=== PATIENT | female | born 1945 | race Caucasian/White ===

== ENCOUNTER → 2020-08-05 | Outpatient (REF) | payer MEDICARE, MEDICAID ==
[~2020-08-05] MED LIST: *CXR; *MAMMOGRAM; AMITRIP25 PO; AMOXIL500 PO; ASP325 PO; ASPI325T; ATARAX25 PO; AUG500 PO; BUSPAR10 PO; BUSPIRONE; CELEXA PO; CELEXA20 PO; CIPRO250 PO; CIPRO500 PO; CORE80CA; CRESTOR PO; CYMBALTA; CYMBALTA60 PO; DIABETA PO; DIFLUC150 PO; EPIPENAD INJECTION; FERROUS325 PO; FOLIC1 PO; FOLITAB11; FURO80TA2; FUROSEM PO; GLUCOSE TEST; HYDROCODONE/APAP; IMDUR30 PO; ISOS30BRAN; K-TA10TA; LAMISILCR TOPICAL; LANCMIS; LASIX20 PO; LASIX40 PO; LIDODERM TOPICAL; LIPI80TA; LIPITOR80 PO; LISINOPR10 PO; LOPRESSO25 PO; LYRI150C; LYRICA PO; LYRICA75 PO; MOBIC15 PO; MOBIC7.5 PO; NEURONTIN1 PO; NEURONTIN3 PO; NYSTATINP TOP; OMACOR PO; OMEPRAZ20 PO; PLAV75TA2; PLAVIX75 PO; PROT1TAB2; PROVENTIL INHALATION; SPIR1CAP; SPIRIVA INHALER; SUCR1TAB56; TESSALO100 PO; TRICOR145 PO; TRICOR160 PO; VALTREX100 PO; VENTOLININ INHALATION; VICODIN PO; VIST50CA; VITAMIN B 12; Z-PAK PO; ZITHROM500 PO; ZITHROZPAK PO; ZOCOR20 PO; [UNRECOGNIZED DRUG - CODE] INHALATION; [UNRECOGNIZED DRUG - CODE] PO; [UNRECOGNIZED DRUG - CODE] PO; [UNRECOGNIZED DRUG - CODE] PO; [UNRECOGNIZED DRUG - CODE] PO; [UNRECOGNIZED DRUG - CODE] PO; [UNRECOGNIZED DRUG - MIXTURE] PO; [UNRECOGNIZED DRUG - OTHER]
[2020-08-05 16:04] LABS: BASO % 0.4 % (0.0-1.0); EOS # 0.2 10^3/uL (0.0-0.5); EOS % 3.2 % (0.0-3.0); HEMATOCRIT 34.2 % (36.0-47.0); HEMOGLOBIN 10.4 g/dl (12.0-15.5); LYMPH # 2.5 10^3/uL (1.5-5.0); LYMPH % 35.3 % (24.0-44.0); MEAN CORPUSCULAR HEMOGLOBIN 29.5 pg (27.0-33.0); MEAN CORPUSCULAR HGB CONC 30.4 g/dl (32.0-36.5); MEAN CORPUSCULAR VOLUME 97.2 fl (80.0-96.0); MONO # 0.5 10^3/uL (0.0-0.8); MONO % 7.1 % (0.0-5.0); NEUTROPHILS # 3.8 10^3/uL (1.5-8.5); NEUTROPHILS % 53.7 % (36.0-66.0); PLATELET COUNT, AUTOMATED 246 10^3/uL (150-450); RED BLOOD COUNT 3.52 10^6/uL (4.00-5.40); WHITE BLOOD COUNT 7.1 10^3/uL (4.0-10.0)
[2020-08-05 16:24] LABS: HEMOGLOBIN A1c 5.7 %
[2020-08-05 16:41] LABS: ALBUMIN 3.6 GM/DL (3.2-5.2); BILIRUBIN,TOTAL 0.2 MG/DL (0.2-1.0); CALCIUM LEVEL 8.8 MG/DL (8.8-10.2); CHOLESTEROL RISK RATIO 6.166 (<5); CREATININE FOR GFR 1.67 MG/DL (0.55-1.30); FREE T4 0.84 NG/DL (0.76-1.46); GLOMERULAR FILTRATION RATE 31.9 (>39); POTASSIUM SERUM 4.1 MEQ/L (3.5-5.1); THYROID STIMULATING HORMONE 0.777 uIU/ML (0.358-3.740)
== END ==
LOC: M SFHCCLAY 13:13
PROVIDERS: ATTEND Nurse Practitioner Family
DX: M25.561 Pain in right knee (principal); W19.XXXA Unspecified fall, initial encounter; J44.9 Chronic obstructive pulmonary disease, unspecified; R09.02 Hypoxemia; F41.8 Other specified anxiety disorders; I48.91 Unspecified atrial fibrillation; G70.00 Myasthenia gravis without (acute) exacerbation; K21.9 Gastro-esophageal reflux disease without esophagitis; I25.118 Atherosclerotic heart disease of native coronary artery with other forms of angina pectoris; Z86.73 Personal history of transient ischemic attack (TIA), and cerebral infarction without residual deficits

== ENCOUNTER → 2020-08-05 | Outpatient (CLI) | payer MEDICARE, MEDICAID ==
--- NOTE | 2020-08-11 07:23 | REP ---
RIGHT KNEE SERIES: 5-VIEWS HISTORY: Acute pain. FINDINGS: Five views of the right knee demonstrate diffuse osteopenia. Vascular calcification is noted. There is no evidence of joint effusion. No fracture or subluxation is seen. IMPRESSION: Diffuse osteopenia. No acute bony abnormality. MTDD
== END ==
LOC: M CLY 13:24
PROVIDERS: ATTEND Nurse Practitioner Family
DX: M85.861 Other specified disorders of bone density and structure, right lower leg (principal); M25.561 Pain in right knee; J44.9 Chronic obstructive pulmonary disease, unspecified; R09.02 Hypoxemia; F41.8 Other specified anxiety disorders; I48.91 Unspecified atrial fibrillation; G70.00 Myasthenia gravis without (acute) exacerbation; K21.9 Gastro-esophageal reflux disease without esophagitis; I25.118 Atherosclerotic heart disease of native coronary artery with other forms of angina pectoris; W19.XXXA Unspecified fall, initial encounter; Z86.73 Personal history of transient ischemic attack (TIA), and cerebral infarction without residual deficits; Z79.899 Other long term (current) drug therapy

== ENCOUNTER → 2020-09-06 | Outpatient (REF) | payer MEDICARE, MEDICAID | LOC: M SFHCCLAY 15:30 | PROVIDERS: ATTEND Physician Assistant | DX: N39.0 Urinary tract infection, site not specified (principal) | CPT/HCPCS: 81002; 87088; 87186; G0463 ==

== ENCOUNTER → 2020-09-16 | Outpatient (CLI) | payer MEDICARE, MEDICAID ==
[~2020-09-16] MED LIST changes: +ACET650T61 PO; +ARTIDRO OU; +ASPI81TA27 PO; +CARB25TA9 PO; +CLON0.5T17 PO; +CLON0.5T2 PO; +D3-5CAP PO; +DIGO0.123 PO; +ENTR1TAB PO; +EPIN0.3I11 INJ; +GABA-843 PO; +ICY1PAD TOP; +IPRA0.00 INH; +L-ME15TA5 PO; +NITR4TASL SL; +OCUVTAB4 PO; +OMEP-221 PO; +POTA1TAB14 PO; +QUES4POW PO; +SERT-138 PO; +TORS20TA2 PO; +TUMS500C PO; +VENTAER INH; +VITA500T41 PO; +WELL100T2 PO; +[UNRECOGNIZED DRUG - CODE] TOP
--- NOTE | 2020-09-16 10:26 | REP ---
INDICATION: ACUTE KNEE PAIN RT KNEE. COMPARISON: Right knee 08/05/2020 TECHNIQUE: Four views. FINDINGS: Tibia and fibula show no fracture along their shafts. Proximal and distal tibial and fibular metaphyses were without fracture or focal lesion. There are vascular calcifications in the popliteal artery and branches from the knee to the lower calf. No pretibial soft tissue swelling. There is some mild swelling distally in the calf in about the ankle. Mortise joint symmetric and preserved. IMPRESSION: 1. No visible fracture, avulsion or destructive bone lesion. Some minor degenerative changes knee and ankle. 2. Vascular calcification the popliteal artery and branches in the calf. 3. Soft tissue swelling mid to distal calf with subcutaneous edema and soft tissue swelling all around the ankle. <Electronically signed by Hilario Jovel > 09/16/20 [id number]
== END ==
LOC: M CLY 09:09
PROVIDERS: ATTEND Nurse Practitioner Family
DX: M25.561 Pain in right knee (principal); W19.XXXD Unspecified fall, subsequent encounter
CPT/HCPCS: 73590; G0463

== ENCOUNTER 2020-09-27 10:56 | Inpatient (IN) | payer MEDICARE, MEDICAID ==
[~2020-09-27] VITALS: Ht 162.6 cm; Wt 66.5 kg
[~2020-09-27 10:56] MED LIST changes: -ACET650T61 PO; -ARTIDRO OU; -ASPI81TA27 PO; -CARB25TA9 PO; -CLON0.5T17 PO; -CLON0.5T2 PO; -D3-5CAP PO; -DIGO0.123 PO; -ENTR1TAB PO; -EPIN0.3I11 INJ; -GABA-843 PO; -ICY1PAD TOP; -IPRA0.00 INH; -L-ME15TA5 PO; -NITR4TASL SL; -OCUVTAB4 PO; -OMEP-221 PO; -POTA1TAB14 PO; -QUES4POW PO; -SERT-138 PO; -TORS20TA2 PO; -TUMS500C PO; -VENTAER INH; -VITA500T41 PO; -WELL100T2 PO; -[UNRECOGNIZED DRUG - CODE] TOP
[2020-09-27 11:40] LABS: BASO % 0.4 % (0.0-1.0); EOS # 0.2 10^3/uL (0.0-0.5); EOS % 2.5 % (0.0-3.0); HEMATOCRIT 33.9 % (36.0-47.0); HEMOGLOBIN 10.2 g/dl (12.0-15.5); LYMPH # 1.9 10^3/uL (1.5-5.0); LYMPH % 24.1 % (24.0-44.0); MEAN CORPUSCULAR HEMOGLOBIN 29.1 pg (27.0-33.0); MEAN CORPUSCULAR HGB CONC 30.1 g/dl (32.0-36.5); MEAN CORPUSCULAR VOLUME 96.9 fl (80.0-96.0); MONO # 0.7 10^3/uL (0.0-0.8); MONO % 8.2 % (0.0-5.0); NEUTROPHILS # 5.1 10^3/uL (1.5-8.5); NEUTROPHILS % 64.3 % (36.0-66.0); PLATELET COUNT, AUTOMATED 211 10^3/uL (150-450); WHITE BLOOD COUNT 7.9 10^3/uL (4.0-10.0)
--- NOTE | 2020-09-27 11:41 | REP ---
INDICATION: TRAUMA COMPARISON: 02/04/2007 TECHNIQUE: Portable AP view of the chest FINDINGS: The mediastinum and cardiac silhouette are stable including cardiomegaly and pacemaker. The lung ch demonstrate chronic appearing interstitial changes without acute consolidation, effusion, or pneumothorax. Skeletal structures are intact. IMPRESSION: No acute cardiopulmonary process appreciated. <Electronically signed by Carson Alvarez > 09/27/20 [id number]
[2020-09-27 12:09] LABS: ALBUMIN 3.3 GM/DL (3.2-5.2); ALT/SGPT 12 U/L (12-78); BILIRUBIN,DIRECT < 0.1 MG/DL (0.0-0.2); BILIRUBIN,TOTAL 0.2 MG/DL (0.2-1.0); BLOOD UREA NITROGEN 19 MG/DL (7-18); CALCIUM LEVEL 8.8 MG/DL (8.8-10.2); CARBON DIOXIDE LEVEL 30 MEQ/L (21-32); CHLORIDE LEVEL 107 MEQ/L (98-107); CK-MB VALUE MASS 1.5 NG/ML (<3.6); CPK CREATINE PHOSPHOKINASE 117 U/L (26-192); CREATININE FOR GFR 1.81 MG/DL (0.55-1.30); GLOMERULAR FILTRATION RATE 29.1 (>39); GLUCOSE, FASTING 116 MG/DL (70-100); MB/CK RELATIVE INDEX 1.28 (< OR =4); POTASSIUM SERUM 4.1 MEQ/L (3.5-5.1); SODIUM LEVEL 142 MEQ/L (136-145); TOTAL PROTEIN 6.8 GM/DL (6.4-8.2); TROPONIN I < 0.02 NG/ML (< 0.10)
[2020-09-27 12:41] LABS: FREE T4 0.64 NG/DL (0.76-1.46); THYROID STIMULATING HORMONE 0.626 uIU/ML (0.358-3.740)
--- NOTE | 2020-09-27 12:46 | REPVR ---
PROCEDURE INFORMATION: Exam: CT Head Without Contrast Exam date and time: 09/27/2020 12:36 PM Age: 75 years old Clinical indication: Walking, difficulty; Additional info: Weakness TECHNIQUE: Imaging protocol: Computed tomography of the head without contrast. Radiation optimization: All CT scans at this facility use at least one of these dose optimization techniques: automated exposure control; mA and/or kV adjustment per patient size (includes targeted exams where dose is matched to clinical indication); or iterative reconstruction. COMPARISON: No relevant prior studies available. FINDINGS: Brain: There is no acute intracranial hemorrhage or mass effect. Moderate diffuse volume loss is within the range of normal for patient age. There are small vessel ischemic changes within the periventricular and subcortical white matter, but the normal finney-white matter delineation is maintained. Chronic lacunar infarct involves the right caudate. Cerebral ventricles: Prominence of the ventricular system is commensurate with volume loss. Bones/joints: Unremarkable. No acute fracture. Paranasal sinuses: Visualized sinuses are unremarkable. No fluid levels. Mastoid air cells: Visualized mastoid air cells are well aerated. Soft tissues: Unremarkable. IMPRESSION: No acute intracranial hemorrhage or edema. Electronically signed by: Eri Baugh On 09/27/2020 12:45:50 PM
[2020-09-27] MEDS ORDERED: QUES4POW PO (13:52)
[2020-09-27] MEDS ORDERED: VITA500T41 PO (13:52)
[2020-09-27] MEDS ORDERED: ARTIDRO OU (13:52)
[2020-09-27] MEDS ORDERED: ENTR1TAB PO (13:52)
[2020-09-27] MEDS ORDERED: TORS20TA2 PO (13:52)
[2020-09-27] MEDS ORDERED: ACET650T61 PO (13:52)
[2020-09-27] MEDS ORDERED: ICY1PAD TOP (13:52)
[2020-09-27] MEDS ORDERED: OMEP-221 PO (13:52)
[2020-09-27] MEDS ORDERED: OCUVTAB4 PO (13:52)
[2020-09-27] MEDS ORDERED: IPRA0.00 INH (13:52)
[2020-09-27] MEDS ORDERED: D3-5CAP PO (13:52)
[2020-09-27] MEDS ORDERED: CLON0.5T17 PO (13:52)
[2020-09-27] MEDS ORDERED: L-ME15TA5 PO (13:52)
[2020-09-27] MEDS ORDERED: GABA-843 PO (13:52)
[2020-09-27] MEDS ORDERED: WELL100T2 PO (13:52)
[2020-09-27] MEDS ORDERED: EPIN0.3I11 INJ (13:52)
[2020-09-27] MEDS ORDERED: SERT-138 PO (13:52)
[2020-09-27] MEDS ORDERED: POTA1TAB14 PO (13:52)
[2020-09-27] MEDS ORDERED: DIGO0.123 PO (13:52)
[2020-09-27] MEDS ORDERED: CLON0.5T2 PO (13:52)
[2020-09-27] MEDS ORDERED: TUMS500C PO (13:52)
[2020-09-27] MEDS ORDERED: NITR4TASL SL (13:52)
[2020-09-27] MEDS ORDERED: ASPI81TA27 PO (13:52)
[2020-09-27] MEDS ORDERED: VENTAER INH (13:52)
[2020-09-27] MEDS ORDERED: [UNRECOGNIZED DRUG - CODE] TOP (13:52)
[2020-09-27] MEDS ORDERED: NITROGLYCERIN 0.4 MG SUBL TABLET SL PRN (15:15)
[2020-09-27 15:18] VITALS: BP 155/69
--- NOTE | 2020-09-27 15:21 | HPEPDOC ---
[facility] Medical History & Physical Date of Admission Sep 27, 2020 Date of Service: Sep 27, 2020 History and Physical Chief complaint: Who presented to the ER after experiencing multiple falls while at home History of present illness: Patient is a 75-year-old female with a PMHx of Chronic hypoxic respiratory failure (uses 2L at baseline), CAD s/p [place] (x3, x12 stents, most recent 2009), Paroxysmal A. fib (as per record, on ASA 81), Pacemaker / AICD (2012), Stroke (2014), Brain aneurysm (no intervention), Myasthenia Gravis (not on meds), Fibromyalgia / Depression / Anxiety, Spinal stenosis, Arthritis, Tremors and GERD who presented to the hospital after expressing multiple falls while at home. Patient reports over the course of 6 months. She has fallen greater than 10 times. Patient denies any head trauma. Reports that on 3 of lytic lesions. She may have lost consciousness, however, she cant remember. Patient reports that today she had fallen denied any loss of consciousness. Patient reports that she uses a walker at baseline and lives alone. She has 2 friends that help her while at home. She is in the process of establishing a home health aide. Patient reports that today she had fallen because her legs gave out. Denied any lightheadedness or dizziness, chest pain, shortness of breath, cough, nausea, vomiting, abdominal pain, constipation, diarrhea, or urinary discomfort. She denies any change in color of her urine or abnormal smell. Denies any recent fevers or chills. Patient reports that overall she feels very fatigued. Two years ago patient had reported a weight loss of about 100 pounds and reports that her appetite is fairly okay. Past Medical History: Chronic hypoxic respiratory failure (uses 2L at baseline), CAD s/p [place] (x3, x12 stents, most recent 2009), Paroxysmal A. 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 Cystocele/rectocele repair Total abdominal hysterectomy Tonsillectomy and adenoidectomy Colonoscopy Allergies: See below Medications: See below Family History: - Father with a history of bone cancer, at the age of 57 and mother with a history of cervical cancer, at the age of 41 Social History: - Denies the use of alcohol or illicit drugs; patient reports that she is an active smoker and has smoked for greater than 50 years - Denies recent travel or sick contacts - Lives alone - 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; 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 Review of Systems: 10 point review of systems complete, all negative otherwise stated in HPI Physical exam: - Vitals: BP [158/66], HR [71], RR [18], Sat [100%RA], Temp [97.1F] - General: Lying in bed, No acute distress, Speaking in full sentences, AAOx3 - HEENT: NC, AT, PERRLA - CVS: RRR, +S1S2 - Lungs: Fair air entry bilaterally, No appreciable wheezing / rales / rhonchi - Abdomen: Soft, Non-distended, Non-tender - Extremities: + PPx4, No lower extremity edema, No calf tenderness - Neuro: No focal motor or sensory deficit - Skin: No visible rashes Labs: See below Imaging: See below EKG: See below Assessment and Plan: Generalized weakness - History of Myasthenia Gravis (not on meds) - Patient reports generalized weakness of all her extremities and fatigue - Review of systems is negative for any source of infection; afebrile / hemodynamically stable - Not appear to have any focal neurologic deficits - UA without any convincing findings of infection - CT head 09/27: No acute intracranial hemorrhage or edema. - CXR 09/27: No acute cardiopulmonary process appreciated. - Will check acetycholine receptor antibodies, anti-MUSK antibodies, striational antibodies - Will start PT and OT - Discussed case with Neurology who will be on consultation; will evaluate today Elevated Cr on CKD3 - Cr baseline noted to be 1.6 a month ago - Will give gentle fluids for now - Avoid nephrotoxic medications - Hold diuresis at this time Chronic hypoxic respiratory failure - Patient reports that she is a smoker, actively for 50 years - Denies the diagnosis of COPD - Patient uses 2L at baseline - Continue with inhaled therapy as ordered CAD - History of [place] x3, x12 stents, most recent 2009 - c/w Nitroglycerin PRN - c/w ASA 81 Paroxysmal A. fib - As per record, however patient denies knowing this diagnosis - EKG currently is normal sinus rhythm - c/w Digoxin - c/w ASA 81 HTN - BP slightly elevated - Will hold Trosemide (re: elevated Cr) - c/w Entresto Pacemaker / AICD (2012) Stroke (2014) - c/w ASA Brain aneurysm - Patient reported that no intervention was required Myasthenia Gravis - See above Macrocytic anemia - c/w Vitamin B12 Fibromyalgia / Depression / Anxiety - c/w Gabapentin, Sertraline, Bupropion, Clonazepam, Spinal stenosis / Arthritis / Tremors - c/w Tylenol Calcium / Vitamin D deficiency - c/w Vitamin D and Calcium carbonate GERD - c/w Omeprazole DVT prophylaxis - Will start Heparin Vital Signs Vital Signs Date Time Temp Pulse Resp B/P (MAP) Pulse Ox O2 Delivery O2 Flow Rate FiO2 09/27/20 14:45 71 164/78 (106) 100 Room Air 09/27/20 13:41 18 09/27/20 11:08 97.1 Laboratory Data Labs 24H Laboratory Tests 2 09/27/20 11:29: Immature Granulocyte % (Auto) 0.5, Neutrophils (%) (Auto) 64.3, Lymphocytes (%) (Auto) 24.1, Monocytes (%) (Auto) 8.2H, Eosinophils (%) (Auto) 2.5, Basophils (%) (Auto) 0.4, Neutrophils # (Auto) 5.1, Lymphocytes # (Auto) 1.9, Monocytes # (Auto) 0.7, Eosinophils # (Auto) 0.2, Basophils # (Auto) 0.0, Nucleated Red Blood Cells % (auto) 0.0, Anion Gap 5L, Glomerular Filtration Rate 29.1L, Calcium Level 8.8, Total Bilirubin 0.2, Direct Bilirubin < 0.1, Aspartate Amino Transf (AST/SGOT) 16, Alanine Aminotransferase (ALT/SGPT) 12, Alkaline Phosphatase 82, Total Creatine Kinase 117, Creatine Kinase MB 1.5, Creatine Kinase MB Relative Index 1.28, Troponin I < 0.02, Total Protein 6.8, Albumin 3.3, Albumin/Globulin Ratio 0.9L, Thyroid Stimulating Hormone (TSH) 0.626, Free Thyroxine 0.64L 09/27/20 13:35: Urine Color YELLOW, Urine Appearance CLEAR, Urine pH 5.0, Urine Specific [place] 1.013, Urine Protein NEGATIVE, Urine Glucose (UA) NEGATIVE, Urine Ketones NEGATIVE, Urine Blood NEGATIVE, Urine Nitrite NEGATIVE, Urine Bilirubin NEGATIVE, Urine Urobilinogen 0.2, Urine Leukocyte Esterase TRACEH, Urine WBC (Auto) 7H, Urine RBC (Auto) 0, Urine Hyaline Casts (Auto) 3, Urine Bacteria (Auto) NEGATIVE, Urine Squamous Epithelial Cells 0, Urine Mucus (Auto) SMALL, Urine Sperm (Auto) , Coronavirus (COVID-19)(PCR) NEGATIVE 09/27/20 15:01: CBC/BMP Laboratory Tests 09/27/20 11:29 Microbiology Microbiology 09/27/20 Urine Culture, Received Pending Home Medications Scheduled Aspirin (Aspirin EC) 81 Mg Tablet.dr, 81 MG PO DAILY Bupropion HCl (Wellbutrin Sr) 100 Mg Tab.sr.12h, 100 MG PO DAILY Calcium Carbonate (Tums) 200 Mg Tab.chew, 500 MG PO DAILY Cholecalciferol (Vitamin D3) (D3-50) 1,250 Mcg Capsule, 1,250 MCG PO QMONTH Cholestyramine (with Sugar) (Questran Packet) 4 Gm Powd.pack, 4 GM PO BID Clonazepam (Clonazepam) 0.5 Mg Tablet, 0.5 MG PO QHS Cyanocobalamin (Vitamin B-12) (Vitamin B-12) 500 Mcg Tablet, 500 MCG PO DAILY Digoxin (Digoxin) 125 Mcg Tablet, 125 MCG PO 3XW MON, WED, FRI Gabapentin (Gabapentin) 300 Mg Capsule, 600 MG PO DAILY Levomefolate Calcium (l-Methylfolate) 15 Mg Tablet, 15 MG PO DAILY Omeprazole (Omeprazole) 40 Mg Capsule.dr, 40 MG PO DAILY Potassium Chloride (Potassium Chloride) 20 Meq Tablet.er, 20 MEQ PO 3XW MON, WED, FRI Sacubitril/Valsartan (Entresto 24 mg-26 mg Tablet) 1 Each Tablet, 0.5 TAB PO BID Sertraline HCl (Sertraline HCl) 100 Mg Tablet, 100 MG PO DAILY Torsemide (Torsemide) 20 Mg Tablet, 10 MG PO DAILY Vit A/Vit C/Vit E/Zinc/Copper (Preservision Areds Tablet) 1 Each Tablet, 1 TAB PO DAILY Scheduled PRN Acetaminophen (Tylenol Arthritis) 650 Mg Tablet.er, 1,300 MG PO Q8H PRN for PAIN Albuterol Sulfate (Ventolin Hfa) 18 Gm Hfa.aer.ad, 2 PUFFS INH Q4H PRN for SOB/WHEEZING Clonazepam (Clonazepam) 0.5 Mg Tab.rapdis, 0.5 MG PO DAILY PRN for ANXIETY Epinephrine (Epinephrine) 0.3 Mg/0.3 Ml Auto.injct, 0.3 MG INJ PRN PRN for ALLERGIC REACTION Glycerin/Propylene Glycol (Artificial Tears Drops) 15 Ml Drops, 1 DROP OU QID PRN for DRY EYES Ipratropium/Albuterol Sulfate (Iprat-Albut 0.5-3(2.5) mg/3 ml) 3 Ml Ampul.neb, 1 HANSA INH QID PRN for SHORTNESS OF BREATH Lidocaine/Menthol (Icy Hot 4%-1% Patch) 1 Each Adh..patch, 1 PATCH TOP TID PRN for BACK PAIN Menthol/Camphor (Freeze It Relief Gel) 113.4 Gm Gel..gram., 1 DOSE TOP BID PRN for SCIATIC PAIN APPLY TO RIGHT LEG AND BACK Nitroglycerin (Nitrostat) 0.4 Mg Tab.subl, 0.4 MG SL NITRO PRN for CHEST PAIN Allergies Coded Allergies: caffeine (Verified Allergy, Mild, 09/27/20) heart palpitations bee venom protein (honey bee) (Verified Allergy, Unknown, 09/27/20) Anaphyalxis strawberry (Verified Allergy, Unknown, 09/27/20) Anaphylaxis MARCELO VERMA MD Sep 27, 2020 15:20
[2020-09-27] MEDS: NS 1,000 ML IV SCH ×2 (15:33→17:03)
[2020-09-27] MEDS: HEPARIN SOD (PORCINE) 5000UNITS/ML 1ML VIAL/SYRINGE SC SCH ×2 (15:36→21:18)
[2020-09-27] MEDS ORDERED: PILL CUTTER 1 EACH XX PRN (16:00)
[2020-09-27] MEDS: clonazePAM 0.5 MG TAB PO SCH ×2 (16:50→21:17)
[2020-09-27] MEDS: ACETAMINOPHEN TAB 650MG DOSE (2X325MG) PO PRN (18:06)
[2020-09-27] MEDS: CHOLESTYRAMINE 4 GM PWD PKT PO SCH (19:59)
[2020-09-27] MEDS ORDERED: clonazePAM 0.5 MG TAB PO SCH (21:00)
[2020-09-27] MEDS: ENTRESTO 24-26MG TABLET (SACUBITRIL/VALSARTAN) PO SCH (21:16)
[2020-09-27 22:00] VITALS: BP 157/76
--- NOTE | 2020-09-27 22:05 | ECGEPIP ---
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
[2020-09-28] MEDS: HEPARIN SOD (PORCINE) 5000UNITS/ML 1ML VIAL/SYRINGE SC SCH ×3 (05:20→20:39)
[2020-09-28 06:00] VITALS: BP 153/75
[2020-09-28 06:26] LABS: BASO % 0.3 % (0.0-1.0); EOS # 0.2 10^3/uL (0.0-0.5); EOS % 3.1 % (0.0-3.0); HEMATOCRIT 31.7 % (36.0-47.0); HEMOGLOBIN 9.7 g/dl (12.0-15.5); LYMPH # 2.1 10^3/uL (1.5-5.0); LYMPH % 27.7 % (24.0-44.0); MEAN CORPUSCULAR HEMOGLOBIN 29.7 pg (27.0-33.0); MEAN CORPUSCULAR HGB CONC 30.6 g/dl (32.0-36.5); MEAN CORPUSCULAR VOLUME 96.9 fl (80.0-96.0); MONO # 0.7 10^3/uL (0.0-0.8); MONO % 8.7 % (0.0-5.0); NEUTROPHILS # 4.5 10^3/uL (1.5-8.5); NEUTROPHILS % 59.8 % (36.0-66.0); PLATELET COUNT, AUTOMATED 221 10^3/uL (150-450); RED BLOOD COUNT 3.27 10^6/uL (4.00-5.40); WHITE BLOOD COUNT 7.4 10^3/uL (4.0-10.0)
[2020-09-28 06:46] LABS: CALCIUM LEVEL 8.4 MG/DL (8.8-10.2); CREATININE FOR GFR 1.48 MG/DL (0.55-1.30); GLOMERULAR FILTRATION RATE 36.7 (>39); MAGNESIUM LEVEL 1.8 MG/DL (1.8-2.4); POTASSIUM SERUM 4.1 MEQ/L (3.5-5.1)
[2020-09-28] MEDS: CHOLESTYRAMINE 4 GM PWD PKT PO SCH ×2 (08:00→19:40)
[2020-09-28] MEDS: SERTRALINE 100 MG TAB PO SCH (08:31)
[2020-09-28] MEDS: CYANOCOBALAMIN 500 MCG TAB PO SCH (08:31)
[2020-09-28] MEDS: buPROPion (WELLBUTRIN SR) 100 MG SR TAB PO SCH (08:31)
[2020-09-28] MEDS: clonazePAM 0.5 MG TAB PO SCH ×3 (08:31→20:38)
[2020-09-28] MEDS: OCUVITE 1 TAB PO SCH (08:31)
[2020-09-28] MEDS: GABAPENTIN 300 MG CAP PO SCH (08:31)
[2020-09-28] MEDS: OMEPRAZOLE 20 MG CAP PO SCH (08:32)
[2020-09-28] MEDS: ASPIRIN 81 MG ENTERIC TAB PO SCH (08:32)
[2020-09-28] MEDS: ENTRESTO 24-26MG TABLET (SACUBITRIL/VALSARTAN) PO SCH ×2 (08:33→20:38)
[2020-09-28] MEDS: CALCIUM CARBONATE 500 MG CHEW U/D PO SCH (08:36)
[2020-09-28 14:00] VITALS: BP 107/72
--- NOTE | 2020-09-28 14:24 | IPNPDOC ---
Text Note Date of Service The patient was seen on 09/28/20. NOTE Subjective: -Feels tired, otherwise without specific pain, fever, chills. Walked to the bathroom. Concerned that her brother is upset with her for not telling him that she was sent to the hospital and he had to call area hospitals worried about her. 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 Objective: Vitals: HDS, afebrile, on room air General: Lying in bed, NAD, speaking in full sentences HEENT: NCAT, PERRLA, MMM CVS: RRR, +S1S2, no noted murmurs, rubs or gallops Lungs: CTAB without crackles, rhonchi or wheezing Abdomen: Soft, Non-distended, Non-tender Extremities: No lower extremity edema, No calf tenderness, WWP Neuro: No focal motor or sensory deficit, grossly 4/5 in all extremities Skin: No visible rashes or lesions Labs: Reviewed. Has pending myasthenia immunology labs Assessment: 75-year-old W with a PMHx of Chronic hypoxic respiratory failure (uses 2L at baseline), CAD s/p [place] (x3, x12 stents, most recent 2009), Paroxysmal A. f ib (as per record, on ASA 81), Pacemaker / AICD (2012), Stroke (2014), Brain aneurysm (no intervention), Myasthenia Gravis (not on meds), Fibromyalgia / Depression / Anxiety, Spinal stenosis, Arthritis, Tremors and GERD who presented to the hospital after reportedly having multiple falls while at home with EMS activated multiple times on the day of presentation. Plan: Generalized weakness with nonfocal neurological examination - History of Myasthenia Gravis (not on meds), consulted neuro --> checking acetylcholine receptor, antiMUSK and striated musc total antibodies - Review of systems is negative for any source of infection; afebrile / hemodynamically stable - UA without evidence of infection - CT head 09/27: No acute intracranial hemorrhage or edema. - CXR 09/27: No acute cardiopulmonary process appreciated. - PT and OT Elevated Cr on CKD3 - Cr baseline noted to be 1.6 a month ago - s/p gentle fluids with improvement - Avoid nephrotoxic medications - Holding diuresis at this time Chronic hypoxic respiratory failure - Patient reports that she is a smoker, actively for 50 years - Denies the diagnosis of COPD - Patient uses 2L at baseline - Continue with inhaled therapy as ordered CAD - History of [place] x3, x12 stents, most recent 2009 - c/w Nitroglycerin PRN - c/w ASA 81 Paroxysmal A. fib - As per record, however patient denies knowing this diagnosis - EKG currently is normal sinus rhythm - c/w Digoxin - c/w ASA 81 HTN - BP slightly elevated - Continue holding Trosemide - c/w Entresto Pacemaker / AICD (2012) Stroke (2014) - c/w ASA Brain aneurysm - Patient reported that no intervention was required Myasthenia Gravis - See above Macrocytic anemia - c/w Vitamin B12 Fibromyalgia / Depression / Anxiety - c/w Gabapentin, Sertraline, Bupropion, Clonazepam, Spinal stenosis / Arthritis / Tremors - c/w Tylenol Calcium / Vitamin D deficiency - c/w Vitamin D and Calcium carbonate GERD - c/w Omeprazole DVT prophylaxis - Heparin SQ Dispo: on going PT/OT eval, neuro eval. VS,Fishbone, I+O VS, Fishbone, I+O Laboratory Tests 09/28/20 06:10 Vital Signs Date Time Temp Pulse Resp B/P (MAP) Pulse Ox O2 Delivery O2 Flow Rate FiO2 09/28/20 09:00 2.0 09/28/20 06:00 97.9 76 18 153/75 (101) 95 Nasal Cannula I&O- Last 24 Hours up to 6 AM 09/28/20 06:00 Intake Total 1940 ml Output Total 1080 ml Balance 860 ml YOVANY FERNÁNDEZ MD Sep 28, 2020 14:24
--- NOTE | 2020-09-28 14:50 | REPVR ---
PROCEDURE INFORMATION: Exam: CT Lumbar Spine Without Contrast Exam date and time: 09/28/2020 2:28 PM Age: 75 years old Clinical indication: Low back pain; Additional info: Gait disorder, spinal stenosis TECHNIQUE: Imaging protocol: Computed tomography images of the lumbar spine without contrast. Radiation optimization: All CT scans at this facility use at least one of these dose optimization techniques: automated exposure control; mA and/or kV adjustment per patient size (includes targeted exams where dose is matched to clinical indication); or iterative reconstruction. COMPARISON: No relevant prior studies available. FINDINGS: Vertebrae: There is a moderate, likely chronic T12 compression deformity. Normal vertebral body heights are otherwise preserved. There is 5 mm of grade 1 anterolisthesis of L3 with respect to L4. There are laminectomy changes at L3, L4 and L5. L1-L2: No significant disc protrusion. No severe spinal canal stenosis. No significant neural foraminal narrowing. L2-L3: There is shallow disc bulging. There is mild facet hypertrophy. There is mild bilateral neural foraminal narrowing. L3-L4: There are laminectomy changes. There is disc bulging/uncovering related to listhesis. There is moderate facet hypertrophy. There is severe bilateral neural foraminal narrowing. L4-L5: There are laminectomy changes. There is diffuse disc bulging. There is moderate facet hypertrophy. There is moderate right and moderate to severe left neural foraminal narrowing. L5-S1: There are laminectomy changes. There is shallow disc bulging. There is mild facet hypertrophy. The spinal canal and neural foramina are patent. Lungs: There are bibasilar dependent atelectatic changes. Kidneys and ureters: There are bilateral renal hypodensities, left significantly greater than right, likely cysts but incompletely characterized. There are nonobstructing left renal calculi. Stomach and bowel: There is increased retained stool within the colon, compatible with constipation. Vasculature: There are calcific atherosclerotic changes of the abdominal aorta and its branches. Soft tissues: Unremarkable. IMPRESSION: Degenerative disc disease and spondylosis as described. At L3/4, changes contribute to severe bilateral neural foraminal narrowing. COMMENTS: Consistent with the [employer]'s Incidental Findings Committee white paper (J Am Ana Radiol 2018): Any incidental renal lesion less than 1 cm or classified as too small to characterize, or any incidental cystic renal lesion characterized as simple-appearing, is likely benign. No follow-up imaging is recommended for these lesions per consensus recommendations based on imaging criteria. Electronically signed by: Eri Baugh On 09/28/2020 14:50:50 PM
--- NOTE | 2020-09-28 15:01 | REPVR ---
PROCEDURE INFORMATION: Exam: CT Cervical Spine Without Contrast Exam date and time: 09/28/2020 2:28 PM Age: 75 years old Clinical indication: Neck pain; Additional info: Gait disorder, spinal stenosis TECHNIQUE: Imaging protocol: Computed tomography images of the cervical spine without contrast. Radiation optimization: All CT scans at this facility use at least one of these dose optimization techniques: automated exposure control; mA and/or kV adjustment per patient size (includes targeted exams where dose is matched to clinical indication); or iterative reconstruction. COMPARISON: No relevant prior studies available. FINDINGS: Bones/joints: No acute fracture. Normal alignment. There is focal sclerosis within the C6 spinous process and right lamina, indeterminate. Discs/Spinal canal/Neural foramina: No significant disc protrusion. No severe spinal canal stenosis. No significant neural foraminal narrowing. Soft tissues: Unremarkable. Lungs: There is biapical emphysema. Other: There is focal opacification of left inferior mastoid air cells, likely effusion. IMPRESSION: No acute findings. Electronically signed by: Eri Baugh On 09/28/2020 15:01:14 PM
[2020-09-28] MEDS: SINEMET 25-100 MG TAB PO SCH (15:45)
[2020-09-28 22:00] VITALS: BP 166/76
[2020-09-29] MEDS: HEPARIN SOD (PORCINE) 5000UNITS/ML 1ML VIAL/SYRINGE SC SCH ×3 (05:01→21:11)
[2020-09-29 06:00] VITALS: BP 125/75
[2020-09-29 06:37] LABS: BASO % 0.3 % (0.0-1.0); EOS # 0.3 10^3/uL (0.0-0.5); EOS % 3.3 % (0.0-3.0); HEMATOCRIT 30.8 % (36.0-47.0); HEMOGLOBIN 9.3 g/dl (12.0-15.5); LYMPH % 26.3 % (24.0-44.0); MEAN CORPUSCULAR HEMOGLOBIN 29.2 pg (27.0-33.0); MEAN CORPUSCULAR HGB CONC 30.2 g/dl (32.0-36.5); MEAN CORPUSCULAR VOLUME 96.6 fl (80.0-96.0); MONO # 0.7 10^3/uL (0.0-0.8); MONO % 9.1 % (0.0-5.0); NEUTROPHILS # 4.6 10^3/uL (1.5-8.5); NEUTROPHILS % 60.6 % (36.0-66.0); PLATELET COUNT, AUTOMATED 212 10^3/uL (150-450); RED BLOOD COUNT 3.19 10^6/uL (4.00-5.40); WHITE BLOOD COUNT 7.6 10^3/uL (4.0-10.0)
[2020-09-29 08:02] LABS: CALCIUM LEVEL 8.7 MG/DL (8.8-10.2); CREATININE FOR GFR 1.55 MG/DL (0.55-1.30); GLOMERULAR FILTRATION RATE 34.8 (>39); MAGNESIUM LEVEL 1.9 MG/DL (1.8-2.4); POTASSIUM SERUM 4.2 MEQ/L (3.5-5.1)
[2020-09-29] MEDS: buPROPion (WELLBUTRIN SR) 100 MG SR TAB PO SCH (08:56)
[2020-09-29] MEDS: CHOLESTYRAMINE 4 GM PWD PKT PO SCH ×3 (08:56→20:11)
[2020-09-29] MEDS: GABAPENTIN 300 MG CAP PO SCH (08:56)
[2020-09-29] MEDS: OCUVITE 1 TAB PO SCH (08:57)
[2020-09-29] MEDS: SINEMET 25-100 MG TAB PO SCH ×3 (08:57→15:09)
[2020-09-29] MEDS: ENTRESTO 24-26MG TABLET (SACUBITRIL/VALSARTAN) PO SCH ×2 (08:57→21:09)
[2020-09-29] MEDS: OMEPRAZOLE 20 MG CAP PO SCH (08:57)
[2020-09-29] MEDS: CALCIUM CARBONATE 500 MG CHEW U/D PO SCH ×2 (08:57→09:00)
[2020-09-29] MEDS: ASPIRIN 81 MG ENTERIC TAB PO SCH (08:57)
[2020-09-29] MEDS: clonazePAM 0.5 MG TAB PO SCH ×3 (08:57→21:09)
[2020-09-29] MEDS: SERTRALINE 100 MG TAB PO SCH (08:57)
[2020-09-29] MEDS: CYANOCOBALAMIN 500 MCG TAB PO SCH (08:58)
[2020-09-29] MEDS: DIGOXIN 0.125 MG TAB PO SCH (09:02)
[2020-09-29 14:00] VITALS: BP_SYST 148; BP_SYST 165; BP_DIAS 78; BP_DIAS 84
--- NOTE | 2020-09-29 14:00 | CR ---
DATE OF CONSULTATION: 09/27/2020 REASON FOR CONSULTATION: Difficulty walking and falls. HISTORY OF PRESENT ILLNESS: Ashwini Sandy is a 75-year-old woman with a history of COPD, coronary artery disease, paroxysmal atrial fibrillation, pacemaker placement, history of stroke and cerebral aneurysm and myasthenia gravis, who presented to [facility] due to multiple falls. The patient stated that she has been falling since 2015 but her falls have been getting worse and increasing. She has fallen several times over the last 2 or 3 weeks. The patient denies any dysphagia, dysarthria, diplopia, urinary incontinence, constipation. She states that she has on and off neck and back pain. She states that if she leans forward and gets up, she falls easily although she does not feel any dizziness or vertigo-like symptoms. She denies any focal weakness of arms or legs, numbness, weakness of arms or legs. She denies any headaches. The patient denies double vision, drooping of eyelids, shortness of breath. The patient states that she was diagnosed with myasthenia gravis [address] Mendez, but she need corrective eye surgeries to improve her double vision as medications did not help. PAST MEDICAL HISTORY: The patient's past medical history is significant for: 1. COPD. 2. Coronary artery disease. 3. Pacemaker placement. 4. History of stroke. 5. Cerebral aneurysm. 6. Myasthenia gravis. 7. Fibromyalgia. 8. Depression. 9. Anxiety. 10. Arthritis. 11. Tremor. 12. Acid reflux. PAST SURGICAL HISTORY: The patient's past surgical history is significant for: 1. History of spinal fusion. 2. Cardiac stents. 3. Benign tumor removal from right shoulder blade. 4. Hysterectomy. 5. Tonsillectomy. 6. Adenoidectomy. 7. Left arm surgery for fracture. SOCIAL HISTORY: She has smoked for greater than 50 years. She denies alcohol or illicit drugs. She lives alone. FAMILY HISTORY: Father had bone cancer and mother had cervical cancer. REVIEW OF SYSTEMS: All systems were reviewed and found to be noncontributory except as mentioned in the history of present illness. CURRENT MEDICATIONS: * Aspirin 81 mg p.o. daily. * Wellbutrin 100 mg p.o. daily. * Calcium Carbonate 500 mg p.o. daily. * Vitamin D-3 1,250 mcg p.o. once a month. * Clonazepam 0.5 mg p.o. q. h.s. * Vitamin B-12 500 mcg p.o. daily. * Digoxin 125 mg three times a week. * Cholestyramine 4 grams p.o. twice daily. * Gabapentin 300 mg, 2 p.o. daily. * Methylfolate 15 mg p.o. daily. * Omeprazole 40 mg p.o. daily. * Potassium Chloride 20 mEq p.o. three times a week. * Entresto 24/26 mg half a tablet p.o. twice daily. * Zoloft 100 mg p.o. daily. * Torsemide 20 mg p.o. daily. * Albuterol inhaler as needed. * Combivent inhaler as needed. * Nitroglycerin as needed. * Tylenol as needed. PHYSICAL EXAMINATION: VITAL SIGNS: Blood pressure 155/69, 100% saturations on oxygen, temperature 97.5, respiratory rate 18. HEENT: The extraocular muscles are intact. No facial weakness. Tongue and uvula are midline. HEART: Irregularly irregular. LUNGS: Clear to auscultation. ABDOMEN: Soft, nontender, nondistended. EXTREMITIES: No pedal edema. 5/5 strength in hands and feet distally. Strength in bilateral proximal arms and legs was 4+/5. MUSCULOSKELETAL: No abnormalities. No signs of meningeal lesion. SKIN: No rash. NEUROLOGICAL: The patient is awake, alert, oriented to place, person and time. Normal speech, comprehension and repetition. She had decreased cold, vibration and sensation in her feet. No dysmetria. No clear cogwheel rigidity. Her gait is very unsteady. She has almost magnetic, stooped gait with head and trunk bent forward. DIAGNOSTIC STUDIES: CT scan of head was reviewed and showed mild cerebral atrophy. LABORATORY DATA: Creatinine is 1.8 with TSH 6.26, GFR 29.1, hemoglobin 10.2. A COVID-19 test is negative. ASSESSMENT: 1. Multifactorial gait difficulty. 2. Parkinsonism, multiple system atrophy are in the differential diagnosis. 3. Concern for general myasthenia although the patient denies any bulbar or eye systems. 4. Concern for cervical and lumbosacral spinal stenosis and multifactorial gait difficulty. PLAN: 1. CT scan of cervical and lumbar spine - The patient cannot have MRI scan due to her pacemaker. 2. Trial of Sinemet 25/100 mg p.o. tree times daily. 3. Check acetylcholine receptor antibody, striational and MUSK antibody. 4. Physical and occupational therapy use walker and exercise fall precautions. 5. Follow with our office in 2 weeks after hospital discharge. CONCHITA
--- NOTE | 2020-09-29 19:47 | IPNPDOC ---
Text Note Date of Service The patient was seen on 09/29/20. NOTE Subjective: -No specific pain, fever, chills. -Discussed reducing sedating meds, agreed to reduce klonopin to BID instead of TID. Objective: Vitals: HDS, afebrile, on room air General: Lying in bed, NAD, speaking in full sentences HEENT: NCAT, PERRLA, MMM CVS: RRR, +S1S2, no noted murmurs, rubs or gallops Lungs: CTAB without crackles, rhonchi or wheezing Abdomen: Soft, Non-distended, Non-tender Extremities: No lower extremity edema, No calf tenderness, WWP Neuro: No focal motor or sensory deficit, grossly 4/5 in all extremities Skin: No visible rashes or lesions Labs: Reviewed. Has pending myasthenia immunology labs CT L-spine: Degenerative disc disease and spondylosis as described. At L3/4, changes contribute to severe bilateral neural foraminal narrowing. CT C-spine: No acute findings Assessment: 75-year-old W with a PMHx of Chronic hypoxic respiratory failure (uses 2L at baseline), CAD s/p [place] (x3, x12 stents, most recent 2009), Paroxysmal A. fib (as per record, on ASA 81), Pacemaker / AICD (2012), Stroke (2014), Brain aneurysm (no intervention), Myasthenia Gravis (not on meds), Fibromyalgia / Depression / Anxiety, Spinal stenosis, Arthritis, Tremors and GERD who presented to the hospital after reportedly having multiple falls while at home with EMS activated multiple times on the day of presentation. Plan: Generalized weakness with nonfocal neurological examination - History of Myasthenia Gravis (not on meds), consulted neuro --> checking acetylcholine receptor, antiMUSK and striated musc total antibodies - Review of systems is negative for any source of infection; afebrile / hemodynamically stable - UA without evidence of infection - CT head 09/27: No acute intracranial hemorrhage or edema. - CXR 09/27: No acute cardiopulmonary process appreciated. - PT and OT -CT L-spine: Degenerative disc disease and spondylosis as described. At L3/4, changes contribute to severe bilateral neural foraminal narrowing. -CT C-spine: No acute findings -was started on carbidopa/levodopa by Dr. Sanford Elevated Cr on CKD3 - Cr baseline noted to be 1.6 a month ago - s/p gentle fluids with improvement - Avoid nephrotoxic medications - Holding diuresis at this time Chronic hypoxic respiratory failure - Patient reports that she is a smoker, actively for 50 years - Denies the diagnosis of COPD - Patient uses 2L at baseline - Continue with inhaled therapy as ordered CAD - History of [place] x3, x12 stents, most recent 2009 - c/w Nitroglycerin PRN - c/w ASA 81 Paroxysmal A. fib - As per record, however patient denies knowing this diagnosis - EKG currently is normal sinus rhythm - c/w Digoxin - c/w ASA 81 HTN - BP slightly elevated - Continue holding Trosemide - c/w Entresto Pacemaker / AICD (2012) Stroke (2014) - c/w ASA Brain aneurysm - Patient reported that no intervention was required Myasthenia Gravis - See above Macrocytic anemia - c/w Vitamin B12 Fibromyalgia / Depression / Anxiety - c/w Gabapentin, Sertraline, Bupropion, Clonazepam, Spinal stenosis / Arthritis / Tremors - c/w Tylenol Calcium / Vitamin D deficiency - c/w Vitamin D and Calcium carbonate GERD - c/w Omeprazole DVT prophylaxis - Heparin SQ Dispo: on going PT/OT eval, neuro eval. VS,Fishbone, I+O VS, Fishbone, I+O Laboratory Tests 09/29/20 06:17 Vital Signs Date Time Temp Pulse Resp B/P (MAP) Pulse Ox O2 Delivery O2 Flow Rate FiO2 09/29/20 14:00 98.9 99 18 148/84 (105) 96 Nasal Cannula 2.0 I&O- Last 24 Hours up to 6 AM 09/29/20 06:00 Intake Total 840 ml Output Total 600 ml Balance 240 ml YOVANY FERNÁNDEZ MD Sep 29, 2020 19:47
[2020-09-29 22:00] VITALS: BP 158/77
[2020-09-29] MEDS: ACETAMINOPHEN TAB 650MG DOSE (2X325MG) PO PRN (23:16)
[2020-09-30] MEDS: HEPARIN SOD (PORCINE) 5000UNITS/ML 1ML VIAL/SYRINGE SC SCH ×3 (05:22→20:46)
[2020-09-30 06:00] VITALS: BP 163/80
[2020-09-30 06:46] LABS: BASO % 0.3 % (0.0-1.0); EOS # 0.4 10^3/uL (0.0-0.5); EOS % 5.1 % (0.0-3.0); HEMATOCRIT 31.1 % (36.0-47.0); HEMOGLOBIN 9.4 g/dl (12.0-15.5); LYMPH # 2.3 10^3/uL (1.5-5.0); MEAN CORPUSCULAR HEMOGLOBIN 29.6 pg (27.0-33.0); MEAN CORPUSCULAR HGB CONC 30.2 g/dl (32.0-36.5); MEAN CORPUSCULAR VOLUME 97.8 fl (80.0-96.0); MONO # 0.6 10^3/uL (0.0-0.8); MONO % 8.8 % (0.0-5.0); NEUTROPHILS # 3.9 10^3/uL (1.5-8.5); NEUTROPHILS % 54.2 % (36.0-66.0); PLATELET COUNT, AUTOMATED 216 10^3/uL (150-450); RED BLOOD COUNT 3.18 10^6/uL (4.00-5.40); WHITE BLOOD COUNT 7.3 10^3/uL (4.0-10.0)
[2020-09-30 06:52] LABS: CREATININE FOR GFR 1.4 MG/DL (0.55-1.30); GLOMERULAR FILTRATION RATE 39.1 (>39); POTASSIUM SERUM 4.2 MEQ/L (3.5-5.1)
[2020-09-30] MEDS: CHOLESTYRAMINE 4 GM PWD PKT PO SCH (09:23)
[2020-09-30] MEDS: SERTRALINE 100 MG TAB PO SCH (10:03)
[2020-09-30] MEDS: OCUVITE 1 TAB PO SCH (10:03)
[2020-09-30] MEDS: CYANOCOBALAMIN 500 MCG TAB PO SCH (10:03)
[2020-09-30] MEDS: OMEPRAZOLE 20 MG CAP PO SCH (10:03)
[2020-09-30] MEDS: buPROPion (WELLBUTRIN SR) 100 MG SR TAB PO SCH (10:03)
[2020-09-30] MEDS: SINEMET 25-100 MG TAB PO SCH ×3 (10:03→17:26)
[2020-09-30] MEDS: CALCIUM CARBONATE 500 MG CHEW U/D PO SCH (10:04)
[2020-09-30] MEDS: ENTRESTO 24-26MG TABLET (SACUBITRIL/VALSARTAN) PO SCH ×2 (10:04→20:46)
[2020-09-30] MEDS: GABAPENTIN 300 MG CAP PO SCH (10:04)
[2020-09-30] MEDS: ASPIRIN 81 MG ENTERIC TAB PO SCH (10:04)
[2020-09-30] MEDS: clonazePAM 0.5 MG TAB PO SCH ×2 (10:04→20:46)
--- NOTE | 2020-09-30 11:48 | IPNPDOC ---
Text Note Date of Service The patient was seen on 09/30/20. NOTE Subjective: -No specific pain, fever, chills. Objective: Vitals: HDS, afebrile, on room air General: Lying in bed, NAD, speaking in full sentences HEENT: NCAT, PERRLA, MMM CVS: RRR, +S1S2, no noted murmurs, rubs or gallops Lungs: CTAB without crackles, rhonchi or wheezing Abdomen: Soft, Non-distended, Non-tender Extremities: No lower extremity edema, No calf tenderness, WWP Neuro: No focal motor or sensory deficit, grossly 4/5 in all extremities Skin: No visible rashes or lesions Labs: Reviewed. Pending immunology workup. CT L-spine: Degenerative disc disease and spondylosis as described. At L3/4, changes contribute to severe bilateral neural foraminal narrowing. CT C-spine: No acute findings Assessment: 75-year-old W with a PMHx of Chronic hypoxic respiratory failure (uses 2L at baseline), CAD s/p [place] (x3, x12 stents, most recent 2009), Paroxysmal A. fib (as per record, on ASA 81), Pacemaker / AICD (2012), Stroke (2014), Brain aneurysm (no intervention), Myasthenia Gravis (not on meds), Fibromyalgia / Depression / Anxiety, Spinal stenosis, Arthritis, Tremors and GERD who presented to the hospital after reportedly having multiple falls while at home with EMS activated multiple times on the day of presentation. Plan: Generalized weakness with nonfocal neurological examination - History of Myasthenia Gravis (not on meds), consulted neuro --> checking acetylcholine receptor, antiMUSK and striated musc total antibodies - Review of systems is negative for any source of infection; afebrile / hemodynamically stable - UA without evidence of infection - CT head 09/27: No acute intracranial hemorrhage or edema. - CXR 09/27: No acute cardiopulmonary process appreciated. - PT and OT -CT L-spine: Degenerative disc disease and spondylosis as described. At L3/4, changes contribute to severe bilateral neural foraminal narrowing. -CT C-spine: No acute findings -was started on carbidopa/levodopa by Dr. Sanford Elevated Cr on CKD3 - Cr baseline noted to be 1.6 a month ago - s/p gentle fluids with improvement - Avoid nephrotoxic medications - Holding diuresis at this time Chronic hypoxic respiratory failure - Patient reports that she is a smoker, actively for 50 years - Denies the diagnosis of COPD - Patient uses 2L at baseline - Continue with inhaled therapy as ordered CAD - History of [place] x3, x12 stents, most recent 2009 - c/w Nitroglycerin PRN - c/w ASA 81 Paroxysmal A. fib - As per record, however patient denies knowing this diagnosis - EKG currently is normal sinus rhythm - c/w Digoxin - c/w ASA 81 HTN - BP slightly elevated - Continue holding Trosemide - c/w Entresto Pacemaker / AICD (2012) Stroke (2014) - c/w ASA Brain aneurysm - Patient reported that no intervention was required Myasthenia Gravis - See above Macrocytic anemia - c/w Vitamin B12 Fibromyalgia / Depression / Anxiety - c/w Gabapentin, Sertraline, Bupropion, Clonazepam, Spinal stenosis / Arthritis / Tremors - c/w Tylenol Calcium / Vitamin D deficiency - c/w Vitamin D and Calcium carbonate GERD - c/w Omeprazole DVT prophylaxis - Heparin SQ Dispo: on going PT/OT eval, neuro eval. VS,Fishbone, I+O VS, Fishbone, I+O Laboratory Tests 09/30/20 05:59 Vital Signs Date Time Temp Pulse Resp B/P (MAP) Pulse Ox O2 Delivery O2 Flow Rate FiO2 09/30/20 06:00 98.9 74 18 163/80 (107) 94 Nasal Cannula 2.0 I&O- Last 24 Hours up to 6 AM 09/30/20 06:00 Intake Total 1500 ml Output Total 900 ml Balance 600 ml YOVANY FERNÁNDEZ MD Sep 30, 2020 09:03
[2020-09-30 14:00] VITALS: BP 156/76
[2020-09-30 22:00] VITALS: BP 156/78
[2020-10-01] MEDS: HEPARIN SOD (PORCINE) 5000UNITS/ML 1ML VIAL/SYRINGE SC SCH ×3 (05:07→21:55)
[2020-10-01 06:00] VITALS: BP 154/68
[2020-10-01 07:42] LABS: BASO % 0.5 % (0.0-1.0); EOS # 0.3 10^3/uL (0.0-0.5); EOS % 3.5 % (0.0-3.0); HEMATOCRIT 29.5 % (36.0-47.0); HEMOGLOBIN 8.9 g/dl (12.0-15.5); LYMPH # 2.1 10^3/uL (1.5-5.0); MEAN CORPUSCULAR HEMOGLOBIN 29.5 pg (27.0-33.0); MEAN CORPUSCULAR HGB CONC 30.2 g/dl (32.0-36.5); MEAN CORPUSCULAR VOLUME 97.7 fl (80.0-96.0); MONO # 0.8 10^3/uL (0.0-0.8); MONO % 10.4 % (0.0-5.0); NEUTROPHILS # 4.3 10^3/uL (1.5-8.5); NEUTROPHILS % 57.2 % (36.0-66.0); PLATELET COUNT, AUTOMATED 200 10^3/uL (150-450); RED BLOOD COUNT 3.02 10^6/uL (4.00-5.40); WHITE BLOOD COUNT 7.5 10^3/uL (4.0-10.0)
[2020-10-01 08:18] LABS: CALCIUM LEVEL 8.5 MG/DL (8.8-10.2); CREATININE FOR GFR 1.59 MG/DL (0.55-1.30); GLOMERULAR FILTRATION RATE 33.8 (>39); POTASSIUM SERUM 4.3 MEQ/L (3.5-5.1)
[2020-10-01] MEDS: OCUVITE 1 TAB PO SCH (09:06)
[2020-10-01] MEDS: CYANOCOBALAMIN 500 MCG TAB PO SCH (09:07)
[2020-10-01] MEDS: buPROPion (WELLBUTRIN SR) 100 MG SR TAB PO SCH (09:07)
[2020-10-01] MEDS: OMEPRAZOLE 20 MG CAP PO SCH (09:07)
[2020-10-01] MEDS: ASPIRIN 81 MG ENTERIC TAB PO SCH (09:07)
[2020-10-01] MEDS: SERTRALINE 100 MG TAB PO SCH (09:07)
[2020-10-01] MEDS: ENTRESTO 24-26MG TABLET (SACUBITRIL/VALSARTAN) PO SCH ×2 (09:07→21:58)
[2020-10-01] MEDS: GABAPENTIN 300 MG CAP PO SCH (09:07)
[2020-10-01] MEDS: SINEMET 25-100 MG TAB PO SCH ×3 (09:07→16:23)
[2020-10-01] MEDS: clonazePAM 0.5 MG TAB PO SCH ×2 (09:07→21:55)
[2020-10-01] MEDS: DIGOXIN 0.125 MG TAB PO SCH (09:07)
[2020-10-01 14:00] VITALS: BP 150/64
--- NOTE | 2020-10-01 14:41 | IPNPDOC ---
Text Note Date of Service The patient was seen on 10/01/20. NOTE Subjective: -No specific pain, fever, chills. Objective: Vitals: HDS, afebrile, on room air General: Lying in bed, NAD, speaking in full sentences HEENT: NCAT, PERRLA, MMM CVS: RRR, +S1S2, no noted murmurs, rubs or gallops Lungs: CTAB without crackles, rhonchi or wheezing Abdomen: Soft, Non-distended, Non-tender Extremities: No lower extremity edema, No calf tenderness, WWP Neuro: No focal motor or sensory deficit, grossly 4/5 in all extremities Skin: No visible rashes or lesions Labs: Reviewed. Stable. Pending immunology workup. CT L-spine: Degenerative disc disease and spondylosis as described. At L3/4, changes contribute to severe bilateral neural foraminal narrowing. CT C-spine: No acute findings Assessment: 75-year-old W with a PMHx of Chronic hypoxic respiratory failure (uses 2L at baseline), CAD s/p [place] (x3, x12 stents, most recent 2009), Paroxysmal A. fib (as per record, on ASA 81), Pacemaker / AICD (2012), Stroke (2014), Brain aneurysm (no intervention), Myasthenia Gravis (not on meds), Fibromyalgia / Depression / Anxiety, Spinal stenosis, Arthritis, Tremors and GERD who presented to the hospital after reportedly having multiple falls while at home with EMS activated multiple times on the day of presentation. Plan: Generalized weakness with nonfocal neurological examination - History of Myasthenia Gravis (not on meds), consulted neuro --> checking acetylcholine receptor, antiMUSK and striated musc total antibodies - Review of systems is negative for any source of infection; afebrile / hemodynamically stable - UA without evidence of infection - CT head 09/27: No acute intracranial hemorrhage or edema. - CXR 09/27: No acute cardiopulmonary process appreciated. - PT and OT -CT L-spine: Degenerative disc disease and spondylosis as described. At L3/4, changes contribute to severe bilateral neural foraminal narrowing. -CT C-spine: No acute findings -was started on carbidopa/levodopa by Dr. Sanford Elevated Cr on CKD3 - Cr baseline noted to be 1.6 a month ago - s/p gentle fluids with improvement - Avoid nephrotoxic medications - Holding diuresis at this time Chronic hypoxic respiratory failure - Patient reports that she is a smoker, actively for 50 years - Denies the diagnosis of COPD - Patient uses 2L at baseline - Continue with inhaled therapy as ordered CAD - History of [place] x3, x12 stents, most recent 2009 - c/w Nitroglycerin PRN - c/w ASA 81 Paroxysmal A. fib - As per record, however patient denies knowing this diagnosis - EKG currently is normal sinus rhythm - c/w Digoxin - c/w ASA 81 HTN - BP slightly elevated - Continue holding Trosemide - c/w Entresto Pacemaker / AICD (2012) Stroke (2014) - c/w ASA Brain aneurysm - Patient reported that no intervention was required Myasthenia Gravis - See above Macrocytic anemia - c/w Vitamin B12 Fibromyalgia / Depression / Anxiety - c/w Gabapentin, Sertraline, Bupropion, Clonazepam, Spinal stenosis / Arthritis / Tremors - c/w Tylenol Calcium / Vitamin D deficiency - c/w Vitamin D and Calcium carbonate GERD - c/w Omeprazole DVT prophylaxis - Heparin SQ Dispo: on going PT/OT eval, has bed at [facility], however with ongoing neuro eval. VS,Fishbone, I+O VS, Fishbone, I+O Laboratory Tests 10/01/20 07:11 Vital Signs Date Time Temp Pulse Resp B/P (MAP) Pulse Ox O2 Delivery O2 Flow Rate FiO2 10/01/20 09:07 88 10/01/20 06:00 98.5 18 154/68 (96) 97 Nasal Cannula 2.0 I&O- Last 24 Hours up to 6 AM 10/01/20 06:00 Intake Total 850 ml Output Total 100 ml Balance 750 ml YOVANY FERNÁNDEZ MD Oct 01, 2020 09:55
[2020-10-01 21:58] VITALS: BP 159/82
[2020-10-01 22:00] VITALS: BP 131/74
[2020-10-02] MEDS: HEPARIN SOD (PORCINE) 5000UNITS/ML 1ML VIAL/SYRINGE SC SCH ×3 (05:11→20:28)
[2020-10-02 06:00] VITALS: BP 132/81
[2020-10-02 06:28] LABS: BASO % 0.3 % (0.0-1.0); EOS # 0.3 10^3/uL (0.0-0.5); HEMATOCRIT 30.4 % (36.0-47.0); HEMOGLOBIN 9.3 g/dl (12.0-15.5); LYMPH % 27.4 % (24.0-44.0); MEAN CORPUSCULAR HEMOGLOBIN 30.5 pg (27.0-33.0); MEAN CORPUSCULAR HGB CONC 30.6 g/dl (32.0-36.5); MEAN CORPUSCULAR VOLUME 99.7 fl (80.0-96.0); MONO # 0.8 10^3/uL (0.0-0.8); MONO % 10.2 % (0.0-5.0); NEUTROPHILS # 4.2 10^3/uL (1.5-8.5); NEUTROPHILS % 57.6 % (36.0-66.0); PLATELET COUNT, AUTOMATED 205 10^3/uL (150-450); RED BLOOD COUNT 3.05 10^6/uL (4.00-5.40); WHITE BLOOD COUNT 7.3 10^3/uL (4.0-10.0)
[2020-10-02 06:59] LABS: CALCIUM LEVEL 8.7 MG/DL (8.8-10.2); CREATININE FOR GFR 1.41 MG/DL (0.55-1.30); GLOMERULAR FILTRATION RATE 38.8 (>39); POTASSIUM SERUM 4.2 MEQ/L (3.5-5.1)
[2020-10-02] MEDS: OMEPRAZOLE 20 MG CAP PO SCH (09:35)
[2020-10-02] MEDS: ENTRESTO 24-26MG TABLET (SACUBITRIL/VALSARTAN) PO SCH ×2 (09:36→20:28)
[2020-10-02] MEDS: clonazePAM 0.5 MG TAB PO SCH ×2 (09:36→20:27)
[2020-10-02] MEDS: OCUVITE 1 TAB PO SCH (09:36)
[2020-10-02] MEDS: CYANOCOBALAMIN 500 MCG TAB PO SCH (09:36)
[2020-10-02] MEDS: SERTRALINE 100 MG TAB PO SCH (09:37)
[2020-10-02] MEDS: buPROPion (WELLBUTRIN SR) 100 MG SR TAB PO SCH (09:37)
[2020-10-02] MEDS: ASPIRIN 81 MG ENTERIC TAB PO SCH (09:37)
[2020-10-02] MEDS: GABAPENTIN 300 MG CAP PO SCH (09:37)
[2020-10-02] MEDS: SINEMET 25-100 MG TAB PO SCH ×3 (09:37→15:22)
[2020-10-02 14:00] VITALS: BP 152/75
--- NOTE | 2020-10-02 14:00 | IPNPDOC ---
Text Note Date of Service The patient was seen on 10/02/20. NOTE Subjective: -No specific pain, fever, chills. Objective: Vitals: HDS, afebrile, on room air General: Lying in bed, NAD, speaking in full sentences HEENT: NCAT, PERRLA, MMM CVS: RRR, +S1S2, no noted murmurs, rubs or gallops Lungs: CTAB without crackles, rhonchi or wheezing Abdomen: Soft, Non-distended, Non-tender Extremities: No lower extremity edema, No calf tenderness, WWP Neuro: No focal motor or sensory deficit, grossly 4/5 in all extremities Skin: No visible rashes or lesions Labs: Reviewed. Stable. Pending immunology workup. CT L-spine: Degenerative disc disease and spondylosis as described. At L3/4, changes contribute to severe bilateral neural foraminal narrowing. CT C-spine: No acute findings Assessment: 75-year-old W with a PMHx of Chronic hypoxic respiratory failure (uses 2L at baseline), CAD s/p [place] (x3, x12 stents, most recent 2009), Paroxysmal A. fib (as per record, on ASA 81), Pacemaker / AICD (2012), Stroke (2014), Brain aneurysm (no intervention), Myasthenia Gravis (not on meds), Fibromyalgia / Depression / Anxiety, Spinal stenosis, Arthritis, Tremors and GERD who presented to the hospital after reportedly having multiple falls while at home with EMS activated multiple times on the day of presentation. Plan: Generalized weakness with nonfocal neurological examination - History of Myasthenia Gravis (not on meds), consulted neuro --> checking acetylcholine receptor, antiMUSK and striated musc total antibodies - Review of systems is negative for any source of infection; afebrile / hemodynamically stable - UA without evidence of infection - CT head 09/27: No acute intracranial hemorrhage or edema. - CXR 09/27: No acute cardiopulmonary process appreciated. - PT and OT -CT L-spine: Degenerative disc disease and spondylosis as described. At L3/4, changes contribute to severe bilateral neural foraminal narrowing. -CT C-spine: No acute findings -was started on carbidopa/levodopa by Dr. Sanford Elevated Cr on CKD3 - Cr baseline noted to be 1.6 a month ago - s/p gentle fluids with improvement - Avoid nephrotoxic medications - Holding diuresis at this time Chronic hypoxic respiratory failure - Patient reports that she is a smoker, actively for 50 years - Denies the diagnosis of COPD - Patient uses 2L at baseline - Continue with inhaled therapy as ordered CAD - History of [place] x3, x12 stents, most recent 2009 - c/w Nitroglycerin PRN - c/w ASA 81 Paroxysmal A. fib - As per record, however patient denies knowing this diagnosis - EKG currently is normal sinus rhythm - c/w Digoxin - c/w ASA 81 HTN - BP slightly elevated - Continue holding Trosemide - c/w Entresto Pacemaker / AICD (2012) Stroke (2014) - c/w ASA Brain aneurysm - Patient reported that no intervention was required Myasthenia Gravis - See above Macrocytic anemia - c/w Vitamin B12 Fibromyalgia / Depression / Anxiety - c/w Gabapentin, Sertraline, Bupropion, Clonazepam, Spinal stenosis / Arthritis / Tremors - c/w Tylenol Calcium / Vitamin D deficiency - c/w Vitamin D and Calcium carbonate GERD - c/w Omeprazole DVT prophylaxis - Heparin SQ Dispo: on going PT/OT eval, has bed at [facility], however with ongoing neuro eval. VS,Fishbone, I+O VS, Fishbone, I+O Laboratory Tests 10/02/20 05:36 Vital Signs Date Time Temp Pulse Resp B/P (MAP) Pulse Ox O2 Delivery O2 Flow Rate FiO2 10/02/20 06:00 98.0 76 17 132/81 (98) 97 Nasal Cannula 2.0 I&O- Last 24 Hours up to 6 AM 10/02/20 05:59 Intake Total 940 ml Balance 940 ml YOVANY FERNÁNDEZ MD Oct 02, 2020 09:21
[2020-10-02 22:00] VITALS: BP 158/84
[2020-10-02] MEDS: ACETAMINOPHEN TAB 650MG DOSE (2X325MG) PO PRN (22:57)
[2020-10-03] MEDS: HEPARIN SOD (PORCINE) 5000UNITS/ML 1ML VIAL/SYRINGE SC SCH ×3 (05:32→20:46)
[2020-10-03 05:56] LABS: BASO % 0.1 % (0.0-1.0); EOS # 0.3 10^3/uL (0.0-0.5); EOS % 3.8 % (0.0-3.0); HEMATOCRIT 30.1 % (36.0-47.0); HEMOGLOBIN 9.1 g/dl (12.0-15.5); MEAN CORPUSCULAR HGB CONC 30.2 g/dl (32.0-36.5); MEAN CORPUSCULAR VOLUME 99.3 fl (80.0-96.0); MONO # 0.8 10^3/uL (0.0-0.8); MONO % 9.9 % (0.0-5.0); NEUTROPHILS # 4.5 10^3/uL (1.5-8.5); NEUTROPHILS % 59.5 % (36.0-66.0); PLATELET COUNT, AUTOMATED 202 10^3/uL (150-450); RED BLOOD COUNT 3.03 10^6/uL (4.00-5.40); WHITE BLOOD COUNT 7.6 10^3/uL (4.0-10.0)
[2020-10-03 06:00] VITALS: BP 158/71
[2020-10-03 06:38] LABS: CALCIUM LEVEL 8.9 MG/DL (8.8-10.2); CREATININE FOR GFR 1.46 MG/DL (0.55-1.30); GLOMERULAR FILTRATION RATE 37.3 (>39); MAGNESIUM LEVEL 1.9 MG/DL (1.8-2.4); POTASSIUM SERUM 4.3 MEQ/L (3.5-5.1)
[2020-10-03] MEDS: clonazePAM 0.5 MG TAB PO SCH ×2 (08:51→20:46)
[2020-10-03] MEDS: ENTRESTO 24-26MG TABLET (SACUBITRIL/VALSARTAN) PO SCH ×2 (08:51→20:47)
[2020-10-03] MEDS: buPROPion (WELLBUTRIN SR) 100 MG SR TAB PO SCH (08:52)
[2020-10-03] MEDS: OCUVITE 1 TAB PO SCH (08:52)
[2020-10-03] MEDS: OMEPRAZOLE 20 MG CAP PO SCH (08:52)
[2020-10-03] MEDS: SERTRALINE 100 MG TAB PO SCH (08:52)
[2020-10-03] MEDS: CYANOCOBALAMIN 500 MCG TAB PO SCH (08:52)
[2020-10-03] MEDS: GABAPENTIN 300 MG CAP PO SCH (08:52)
[2020-10-03] MEDS: ASPIRIN 81 MG ENTERIC TAB PO SCH (08:52)
[2020-10-03] MEDS: SINEMET 25-100 MG TAB PO SCH ×3 (08:52→16:39)
--- NOTE | 2020-10-03 10:24 | IPNPDOC ---
Text Note Date of Service The patient was seen on 10/03/20. NOTE Subjective: -No specific pain, fever, chills. Objective: Vitals: HDS, afebrile, on room air General: Lying in bed, NAD, speaking in full sentences HEENT: NCAT, PERRLA, MMM CVS: RRR, +S1S2, no noted murmurs, rubs or gallops Lungs: CTAB without crackles, rhonchi or wheezing Abdomen: Soft, Non-distended, Non-tender Extremities: No lower extremity edema, No calf tenderness, WWP Neuro: No focal motor or sensory deficit, grossly 4/5 in all extremities Skin: No visible rashes or lesions Labs: Reviewed. Stable. Pending immunology workup. CT L-spine: Degenerative disc disease and spondylosis as described. At L3/4, changes contribute to severe bilateral neural foraminal narrowing. CT C-spine: No acute findings Assessment: 75-year-old W with a PMHx of Chronic hypoxic respiratory failure (uses 2L at baseline), CAD s/p [place] (x3, x12 stents, most recent 2009), Paroxysmal A. fib (as per record, on ASA 81), Pacemaker / AICD (2012), Stroke (2014), Brain aneurysm (no intervention), Myasthenia Gravis (not on meds), Fibromyalgia / Depression / Anxiety, Spinal stenosis, Arthritis, Tremors and GERD who presented to the hospital after reportedly having multiple falls while at home with EMS activated multiple times on the day of presentation. Plan: Generalized weakness with nonfocal neurological examination -History of Myasthenia Gravis (not on meds), consulted neuro --> checking acetylcholine receptor, antiMUSK and striated musc total antibodies -Review of systems is negative for any source of infection; afebrile / hemodynamically stable -UA without evidence of infection -CT head 09/27: No acute intracranial hemorrhage or edema. -CXR 09/27: No acute cardiopulmonary process appreciated. -PT and OT -CT L-spine: Degenerative disc disease and spondylosis as described. At L3/4, changes contribute to severe bilateral neural foraminal narrowing. -CT C-spine: No acute findings -was started on carbidopa/levodopa by Dr. Sanford Elevated Cr on CKD3 -Cr baseline noted to be 1.6 a month ago -s/p gentle fluids with improvement -Avoid nephrotoxic medications -Holding diuresis at this time Chronic hypoxic respiratory failure - Patient reports that she is a smoker, actively for 50 years - Denies the diagnosis of COPD - Patient uses 2L at baseline - Continue with inhaled therapy as ordered CAD - History of [place] x3, x12 stents, most recent 2009 - c/w Nitroglycerin PRN - c/w ASA 81 Paroxysmal A. fib - As per record, however patient denies knowing this diagnosis - EKG currently is normal sinus rhythm - c/w Digoxin - c/w ASA 81 HTN - BP slightly elevated - Continue holding Trosemide - c/w Entresto Pacemaker / AICD (2012) Stroke (2014) - c/w ASA Brain aneurysm - Patient reported that no intervention was required Myasthenia Gravis - See above Macrocytic anemia - c/w Vitamin B12 Fibromyalgia / Depression / Anxiety - c/w Gabapentin, Sertraline, Bupropion, Clonazepam, Spinal stenosis / Arthritis / Tremors - c/w Tylenol Calcium / Vitamin D deficiency - c/w Vitamin D and Calcium carbonate GERD - c/w Omeprazole DVT prophylaxis - Heparin SQ Dispo: on going PT/OT eval, has bed at [facility], however with ongoing neuro eval. VS,Fishbone, I+O VS, Fishbone, I+O Laboratory Tests 10/03/20 05:30 Vital Signs Date Time Temp Pulse Resp B/P (MAP) Pulse Ox O2 Delivery O2 Flow Rate FiO2 10/03/20 06:00 98.0 76 18 158/71 (100) 96 Nasal Cannula 2.0 I&O- Last 24 Hours up to 6 AM 10/03/20 06:00 Intake Total 1680 ml Balance 1680 ml YOVANY FERNÁNDEZ MD Oct 03, 2020 08:30
[2020-10-03 22:00] VITALS: BP 159/77
[2020-10-04] MEDS: HEPARIN SOD (PORCINE) 5000UNITS/ML 1ML VIAL/SYRINGE SC SCH ×3 (05:12→21:11)
[2020-10-04] MEDS: ACETAMINOPHEN TAB 650MG DOSE (2X325MG) PO PRN (05:13)
[2020-10-04 06:00] VITALS: BP 153/85
[2020-10-04 06:28] LABS: BASO % 0.3 % (0.0-1.0); EOS # 0.3 10^3/uL (0.0-0.5); EOS % 3.5 % (0.0-3.0); HEMATOCRIT 30.7 % (36.0-47.0); HEMOGLOBIN 9.2 g/dl (12.0-15.5); LYMPH # 1.9 10^3/uL (1.5-5.0); LYMPH % 25.6 % (24.0-44.0); MEAN CORPUSCULAR HEMOGLOBIN 29.7 pg (27.0-33.0); MONO # 0.8 10^3/uL (0.0-0.8); MONO % 10.4 % (0.0-5.0); NEUTROPHILS # 4.4 10^3/uL (1.5-8.5); NEUTROPHILS % 59.4 % (36.0-66.0); PLATELET COUNT, AUTOMATED 191 10^3/uL (150-450); WHITE BLOOD COUNT 7.3 10^3/uL (4.0-10.0)
[2020-10-04 06:50] LABS: CALCIUM LEVEL 9.1 MG/DL (8.8-10.2); CREATININE FOR GFR 1.48 MG/DL (0.55-1.30); GLOMERULAR FILTRATION RATE 36.7 (>39); POTASSIUM SERUM 4.6 MEQ/L (3.5-5.1)
[2020-10-04] MEDS ORDERED: CARB25TA9 PO (09:51)
[2020-10-04] MEDS: buPROPion (WELLBUTRIN SR) 100 MG SR TAB PO SCH (10:14)
[2020-10-04] MEDS: GABAPENTIN 300 MG CAP PO SCH (10:14)
[2020-10-04] MEDS: OCUVITE 1 TAB PO SCH (10:14)
[2020-10-04] MEDS: OMEPRAZOLE 20 MG CAP PO SCH (10:14)
[2020-10-04] MEDS: ENTRESTO 24-26MG TABLET (SACUBITRIL/VALSARTAN) PO SCH ×2 (10:16→20:41)
[2020-10-04] MEDS: SERTRALINE 100 MG TAB PO SCH (10:18)
[2020-10-04] MEDS: CYANOCOBALAMIN 500 MCG TAB PO SCH (10:18)
[2020-10-04] MEDS: ASPIRIN 81 MG ENTERIC TAB PO SCH (10:18)
[2020-10-04] MEDS: SINEMET 25-100 MG TAB PO SCH ×4 (10:19→20:40)
[2020-10-04] MEDS: DIGOXIN 0.125 MG TAB PO SCH (10:19)
[2020-10-04] MEDS: clonazePAM 0.5 MG TAB PO SCH ×2 (10:19→20:41)
--- NOTE | 2020-10-04 12:28 | IPNPDOC ---
Text Note Date of Service The patient was seen on 10/04/20. NOTE Subjective: -No specific pain, fever, chills. Objective: Vitals: HDS, afebrile, on room air General: Lying in bed, NAD, speaking in full sentences HEENT: NCAT, PERRLA, MMM CVS: RRR, +S1S2, no noted murmurs, rubs or gallops Lungs: CTAB without crackles, rhonchi or wheezing Abdomen: Soft, Non-distended, Non-tender Extremities: No lower extremity edema, No calf tenderness, WWP Neuro: No focal motor or sensory deficit, grossly 4/5 in all extremities Skin: No visible rashes or lesions Labs: Reviewed. Stable. Pending immunology workup. CT L-spine: Degenerative disc disease and spondylosis as described. At L3/4, changes contribute to severe bilateral neural foraminal narrowing. CT C-spine: No acute findings Assessment: 75-year-old W with a PMHx of Chronic hypoxic respiratory failure (uses 2L at baseline), CAD s/p [place] (x3, x12 stents, most recent 2009), Paroxysmal A. fib (as per record, on ASA 81), Pacemaker / AICD (2012), Stroke (2014), Brain aneurysm (no intervention), Myasthenia Gravis (not on meds), Fibromyalgia / Depression / Anxiety, Spinal stenosis, Arthritis, Tremors and GERD who presented to the hospital after reportedly having multiple falls while at home with EMS activated multiple times on the day of presentation. Plan: Generalized weakness with nonfocal neurological examination -History of Myasthenia Gravis (not on meds), consulted neuro --> checking acetylcholine receptor, antiMUSK and striated musc total antibodies -Review of systems is negative for any source of infection; afebrile / hemodynamically stable -UA without evidence of infection -CT head 09/27: No acute intracranial hemorrhage or edema. -CXR 09/27: No acute cardiopulmonary process appreciated. -PT and OT -CT L-spine: Degenerative disc disease and spondylosis as described. At L3/4, changes contribute to severe bilateral neural foraminal narrowing. -CT C-spine: No acute findings -1 pill carbidopa/levodopa QID per Dr. Sanford Elevated Cr on CKD3 -Cr baseline noted to be 1.6 a month ago -s/p gentle fluids with improvement -Avoid nephrotoxic medications -Holding diuresis at this time Chronic hypoxic respiratory failure - Patient reports that she is a smoker, actively for 50 years - Denies the diagnosis of COPD - Patient uses 2L at baseline - Continue with inhaled therapy as ordered CAD - History of [place] x3, x12 stents, most recent 2009 - c/w Nitroglycerin PRN - c/w ASA 81 Paroxysmal A. fib - As per record, however patient denies knowing this diagnosis - EKG currently is normal sinus rhythm - c/w Digoxin - c/w ASA 81 HTN - BP slightly elevated - Continue holding Trosemide - c/w Entresto Pacemaker / AICD (2012) Stroke (2014) - c/w ASA Brain aneurysm - Patient reported that no intervention was required Myasthenia Gravis - See above Macrocytic anemia - c/w Vitamin B12 Fibromyalgia / Depression / Anxiety - c/w Gabapentin, Sertraline, Bupropion, Clonazepam, Spinal stenosis / Arthritis / Tremors - c/w Tylenol Calcium / Vitamin D deficiency - c/w Vitamin D and Calcium carbonate GERD - c/w Omeprazole DVT prophylaxis - Heparin SQ Dispo: on going PT/OT eval, neuro ok with her getting discharged, PT/OT now thinking of home with services with more sessions pending. VS,Reji, I+O VS, Devene, I+O Laboratory Tests 10/04/20 06:07 Vital Signs Date Time Temp Pulse Resp B/P (MAP) Pulse Ox O2 Delivery O2 Flow Rate FiO2 10/04/20 10:19 92 10/04/20 06:00 98.4 18 153/85 (107) 95 10/03/20 20:30 2.0 10/03/20 06:00 Nasal Cannula I&O- Last 24 Hours up to 6 AM 10/04/20 06:00 Intake Total 1440 ml Output Total 1 ml Balance 1439 ml YOVANY FERNÁNDEZ MD Oct 04, 2020 12:28
[2020-10-04 14:00] VITALS: BP 172/83
[2020-10-04 22:00] VITALS: BP 140/72
[2020-10-05] MEDS: ACETAMINOPHEN TAB 650MG DOSE (2X325MG) PO PRN (03:15)
[2020-10-05] MEDS: HEPARIN SOD (PORCINE) 5000UNITS/ML 1ML VIAL/SYRINGE SC SCH ×3 (05:55→21:14)
[2020-10-05 06:00] VITALS: BP 134/62
[2020-10-05] MEDS: GABAPENTIN 300 MG CAP PO SCH (10:23)
[2020-10-05] MEDS: OMEPRAZOLE 20 MG CAP PO SCH (10:23)
[2020-10-05] MEDS: CYANOCOBALAMIN 500 MCG TAB PO SCH (10:23)
[2020-10-05] MEDS: ASPIRIN 81 MG ENTERIC TAB PO SCH (10:23)
[2020-10-05] MEDS: SERTRALINE 100 MG TAB PO SCH (10:23)
[2020-10-05] MEDS: buPROPion (WELLBUTRIN SR) 100 MG SR TAB PO SCH (10:24)
[2020-10-05] MEDS: SINEMET 25-100 MG TAB PO SCH ×4 (10:24→20:11)
[2020-10-05] MEDS: OCUVITE 1 TAB PO SCH (10:24)
[2020-10-05] MEDS: ENTRESTO 24-26MG TABLET (SACUBITRIL/VALSARTAN) PO SCH ×2 (10:24→20:11)
[2020-10-05] MEDS: clonazePAM 0.5 MG TAB PO SCH ×2 (10:24→20:11)
[2020-10-05 14:00] VITALS: BP 132/61
--- NOTE | 2020-10-05 18:24 | IPNPDOC ---
Date Seen The patient was seen on 10/05/20. Progress Note Subjective: No acute complaints overnight. PT/OT: can likely go 10/06/20 with one more session. Denies chest pain, fevers, chills, incr weakness. Objective: physical exam: Vitals: Please see below General: Lying in bed, NAD, speaking in full sentences HEENT: NCAT, PERRLA, MMM CVS: RRR, +S1S2, no noted murmurs, rubs or gallops Lungs: CTAB without crackles, rhonchi or wheezing Abdomen: Soft, Non-distended, Non-tender Extremities: No lower extremity edema, No calf tenderness, WWP Neuro: No focal motor or sensory deficit, grossly 4/5 in all extremities Skin: No visible rashes or lesions Labs: Reviewed. Stable. Pending immunology workup. CT L-spine: Degenerative disc disease and spondylosis as described. At L3/4, changes contribute to severe bilateral neural foraminal narrowing. CT C-spine: No acute findings Assessment: 75-year-old W with a PMHx of Chronic hypoxic respiratory failure (uses 2L at baseline), CAD s/p [place] (x3, x12 stents, most recent 2009), Paroxysmal A. fib (as per record, on ASA 81), Pacemaker / AICD (2012), Stroke (2014), Brain aneurysm (no intervention), Myasthenia Gravis (not on meds), Fibromyalgia / Depression / Anxiety, Spinal stenosis, Arthritis, Tremors and GERD who presented to the hospital after reportedly having multiple falls while at home with EMS activated multiple times on the day of presentation. Plan: Generalized weakness with nonfocal neurological examination -History of Myasthenia Gravis (not on meds), consulted neuro --> checking acetylcholine receptor, antiMUSK and striated musc total antibodies- all pending and patient can follow up as o/p -Review of systems is negative for any source of infection; afebrile / hemodynamically stable -UA without evidence of infection -CT head 09/27: No acute intracranial hemorrhage or edema. -CXR 09/27: No acute cardiopulmonary process appreciated. -CT L-spine: Degenerative disc disease and spondylosis as described. At L3/4, changes contribute to severe bilateral neural foraminal narrowing. -CT C-spine: No acute findings -1 pill carbidopa/levodopa QID per Dr. Sanford -PT/OT Elevated Cr on CKD3 -Cr baseline noted to be 1.6 a month ago, currently 1.4 this AM -s/p gentle fluids with improvement -Avoid nephrotoxic medications -Holding diuresis at this time Chronic hypoxic respiratory failure - Patient reports that she is a smoker, actively for 50 years - Denies the diagnosis of COPD - Patient uses 2L at baseline - Continue with inhaled therapy as ordered CAD - History of [place] x3, x12 stents, most recent 2009 - c/w Nitroglycerin PRN - c/w ASA 81 Paroxysmal A. fib - As per record, however patient denies knowing this diagnosis - EKG currently is normal sinus rhythm - c/w Digoxin - c/w ASA 81 HTN - BP slightly elevated - Continue holding Trosemide - c/w Entresto Pacemaker / AICD (2012) Stroke (2014) - c/w ASA Brain aneurysm - Patient reported that no intervention was required Myasthenia Gravis - See above Macrocytic anemia - c/w Vitamin B12 Fibromyalgia / Depression / Anxiety - c/w Gabapentin, Sertraline, Bupropion, Clonazepam, Spinal stenosis / Arthritis / Tremors - c/w Tylenol Calcium / Vitamin D deficiency - c/w Vitamin D and Calcium carbonate GERD - c/w Omeprazole DVT prophylaxis - Heparin SQ Dispo: Neurology can f/u in o/p clinic. PT/OT : home with home services likely 10/06/20. VS, I&O, 24H, Fishbone Vital Signs/I&O Vital Signs Date Time Temp Pulse Resp B/P (MAP) Pulse Ox O2 Delivery O2 Flow Rate FiO2 10/05/20 14:00 98.4 86 17 132/61 (84) 94 Nasal Cannula 2.0 I&O- Last 24 Hours up to 6 AM 10/05/20 06:00 Intake Total 1410 ml Balance 1410 ml Laboratory Data Microbiology Microbiology 09/27/20 Urine Culture - Final, Complete Current Medications Current Medications Medications (Trade) Dose Ordered Sig/Jorden Route PRN Reason Start Time Stop Time Status Last Admin Dose Admin Acetaminophen (Tylenol Tab) 650 mg Q4H PRN PO PAIN OR FEVER 09/27/20 14:30 10/05/20 03:15 Aspirin (Ecotrin) 81 mg DAILY PO 09/28/20 09:00 10/05/20 10:23 Bupropion HCl (Wellbutrin Sr) 100 mg DAILY PO 09/28/20 09:00 10/05/20 10:24 Calcium Carbonate (Tums) 500 mg DAILY PO 09/28/20 09:00 09/30/20 17:28 DC Carbidopa/Levodopa (Sinemet 25/100) 1 tab QID PO 10/04/20 09:00 10/05/20 15:33 Carbidopa/Levodopa (Sinemet 25/100) 1 tab TID@0900,1200,1600 PO 09/28/20 16:00 10/04/20 09:13 DC 10/03/20 16:39 Cholestyramine Resin (Questran) 4 gm BID@0800,2000 PO 09/27/20 20:00 09/30/20 17:28 DC 09/29/20 20:11 Clonazepam (KlonoPIN) 0.5 mg BID PO 09/29/20 21:00 10/05/20 10:24 Clonazepam (KlonoPIN) 0.5 mg QHS PO 09/27/20 21:00 09/27/20 16:30 DC Clonazepam (KlonoPIN) 0.5 mg TID@0900,1500,2100 PO 09/27/20 15:00 09/29/20 19:43 DC 09/29/20 15:09 Cyanocobalamin (Vitamin B12) 500 mcg DAILY PO 09/28/20 09:00 10/05/20 10:23 Digoxin (Lanoxin) 0.125 mg MoWeFr@0900 PO 09/29/20 09:00 10/04/20 10:19 Gabapentin (Neurontin) 600 mg DAILY PO 09/28/20 09:00 10/05/20 10:23 Heparin Sodium (Porcine) (Heparin) 5,000 units Q8H SC 09/27/20 14:00 10/05/20 15:33 Home Med (Med Rec Complete!) ASDIRECTED XX 09/27/20 14:00 09/27/20 13:54 DC Miscellaneous (Unresolved Clarification Entry) SEE LABEL COMMENTS DAILY XX 10/03/20 09:00 Cancel Multivitamins (Ocuvite(I-Tuyet)) 1 tab DAILY PO 09/28/20 09:00 10/05/20 10:24 Nitroglycerin (Nitrostat (1/ 150)) 0.4 mg Q5MP PRN SL CHEST PAIN 09/27/20 15:15 Omeprazole (PriLOSEC) 40 mg DAILY PO 09/28/20 09:00 10/05/20 10:23 Sacubitril/ Valsartan (Entresto 24-26 Mg) 0.5 tab BID PO 09/27/20 21:00 10/05/20 10:24 Sertraline HCl (Zoloft) 100 mg DAILY PO 09/28/20 09:00 10/05/20 10:23 Sodium Chloride 1,000 ml @ 80 mls/hr [id number] IV 09/27/20 15:15 09/28/20 03:44 DC 09/27/20 17:03 Allergies Coded Allergies: caffeine (Verified Allergy, Mild, 09/27/20) heart palpitations bee venom protein (honey bee) (Verified Allergy, Unknown, 09/27/20) Anaphyalxis strawberry (Verified Allergy, Unknown, 09/27/20) Anaphylaxis Mari Bals MD Oct 05, 2020 18:24
[2020-10-05 22:00] VITALS: BP 131/89
[2020-10-06] MEDS: HEPARIN SOD (PORCINE) 5000UNITS/ML 1ML VIAL/SYRINGE SC SCH ×2 (05:53→14:00)
[2020-10-06 06:00] VITALS: BP 124/80
[2020-10-06 07:36] LABS: HEMATOCRIT 29.5 % (36.0-47.0); HEMOGLOBIN 9.1 g/dl (12.0-15.5); MEAN CORPUSCULAR HEMOGLOBIN 30.5 pg (27.0-33.0); MEAN CORPUSCULAR HGB CONC 30.8 g/dl (32.0-36.5); PLATELET COUNT, AUTOMATED 197 10^3/uL (150-450); RED BLOOD COUNT 2.98 10^6/uL (4.00-5.40)
[2020-10-06 08:11] LABS: ALBUMIN 2.8 GM/DL (3.2-5.2); BILIRUBIN,TOTAL 0.2 MG/DL (0.2-1.0); CALCIUM LEVEL 8.9 MG/DL (8.8-10.2); CREATININE FOR GFR 1.59 MG/DL (0.55-1.30); GLOMERULAR FILTRATION RATE 33.8 (>39); POTASSIUM SERUM 4.7 MEQ/L (3.5-5.1); TOTAL PROTEIN 6.2 GM/DL (6.4-8.2)
[2020-10-06] MEDS: OMEPRAZOLE 20 MG CAP PO SCH (09:22)
[2020-10-06] MEDS: ASPIRIN 81 MG ENTERIC TAB PO SCH (09:22)
[2020-10-06] MEDS: CYANOCOBALAMIN 500 MCG TAB PO SCH (09:22)
[2020-10-06] MEDS: buPROPion (WELLBUTRIN SR) 100 MG SR TAB PO SCH (09:22)
[2020-10-06] MEDS: OCUVITE 1 TAB PO SCH (09:22)
[2020-10-06] MEDS: ENTRESTO 24-26MG TABLET (SACUBITRIL/VALSARTAN) PO SCH (09:22)
[2020-10-06] MEDS: GABAPENTIN 300 MG CAP PO SCH (09:22)
[2020-10-06] MEDS: SINEMET 25-100 MG TAB PO SCH ×2 (09:23→13:00)
[2020-10-06] MEDS: clonazePAM 0.5 MG TAB PO SCH (09:23)
[2020-10-06] MEDS: SERTRALINE 100 MG TAB PO SCH (09:23)
[2020-10-06] MEDS: DIGOXIN 0.125 MG TAB PO SCH (09:24)
[2020-10-06] MEDS: ACETAMINOPHEN TAB 650MG DOSE (2X325MG) PO PRN (14:18)
--- NOTE | 2020-10-06 16:33 | DS.PDOC ---
Discharge Summary General Date of Admission Sep 27, 2020 at 14:21 Date of Discharge 10/06/20 Attending Physician: Mari Blas MD Discharge Summary HISTORY OF PRESENT ILLNESS: Patient is a 75-year-old female with a PMHx of Chronic hypoxic respiratory failure (uses 2L at baseline), CAD s/p [place] (x3, x12 stents, most recent 2009), Paroxysmal A. fib (as per record, on ASA 81), Pacemaker / AICD (2012), Stroke (2014), Brain aneurysm (no intervention), Myasthenia Gravis (not on meds), Fibromyalgia / Depression / Anxiety, Spinal stenosis, Arthritis, Tremors and GERD who presented to the hospital after expressing multiple falls while at home. Patient reports over the course of 6 months. She has fallen greater than 10 times. Patient denies any head trauma. Reports that on 3 of lytic lesions. She may have lost consciousness, however, she cant remember. Patient reports that today she had fallen denied any loss of consciousness. Patient reports that she uses a walker at baseline and lives alone. She has 2 friends that help her while at home. She is in the process of establishing a home health aide. Patient reports that she had fallen because her legs gave out. Denied any lightheadedness or dizziness, chest pain, shortness of breath, cough, nausea, vomiting, abdominal pain, constipation, diarrhea, or urinary discomfort. She denies any change in color of her urine or abnormal smell. Denies any recent fevers or chills. Patient reports that overall she feels very fatigued. Two years ago patient had reported a weight loss of about 100 pounds and reports that her appetite is fairly okay. HOSPITAL COURSE: Patient was assessed by neurology this hospital admission and there was a concern for general myasthenia although the patient denies any bulbar or ice systems issues. There also was a concern for cervical and lumbar soaked sacral spinal stenosis which was later ruled out on CT. Her gait difficulty appears to be multifactorial and multisystem atrophy were also of concern. Acetylcholine receptor antibody, striationAL AND musk AB testing was ordered. She was started on sinemet PO TID which seemed to help some. PT/OT assessed, over her hospital stay, later found patient to be cleared from physical therapy with recommendation for home PT to ensure safety within her own environment. She is due to follow up with neurology as o/p to follow up on pending testing, as well as her PCP within 1-2 weeks after discharge. At time of discharge, patient denied chest pain, shortness of breath, n/v/d, fevers or increased weakness, visual changes. PAST MEDICAL HISTORY: Chronic hypoxic respiratory failure (uses 2L at baseline), CAD s/p [place] (x3, x12 stents, most recent 2009), Paroxysmal A. 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 PHYSICAL EXAMINATION: physical exam: Vitals: Please see below General: Lying in bed, NAD, speaking in full sentences HEENT: NCAT, PERRLA, MMM CVS: RRR, +S1S2, no noted murmurs, rubs or gallops Lungs: CTAB without crackles, rhonchi or wheezing Abdomen: Soft, Non-distended, Non-tender Extremities: No lower extremity edema, No calf tenderness, WWP Neuro: No focal motor or sensory deficit, grossly 4/5 in all extremities Skin: No visible rashes or lesions Labs: Reviewed. Stable. Pending immunology workup. CT L-spine: Degenerative disc disease and spondylosis as described. At L3/4, changes contribute to severe bilateral neural foraminal narrowing. CT C-spine: No acute findings Assessment: 75-year-old W with a PMHx of Chronic hypoxic respiratory failure (uses 2L at baseline), CAD s/p [place] (x3, x12 stents, most recent 2009), Paroxysmal A. fib (as per record, on ASA 81), Pacemaker / AICD (2012), Stroke (2014), Brain aneurysm (no intervention), Myasthenia Gravis (not on meds), Fibromyalgia / Depression / Anxiety, Spinal stenosis, Arthritis, Tremors and GERD who presented to the hospital after reportedly having multiple falls while at home with EMS activated multiple times on the day of presentation. Plan: Generalized weakness with nonfocal neurological examination -History of Myasthenia Gravis (not on meds), consulted neuro --> checking acetylcholine receptor, antiMUSK and striated musc total antibodies- all pending and patient can follow up as o/p -Review of systems is negative for any source of infection; afebrile / hemodynamically stable -UA without evidence of infection -CT head 09/27: No acute intracranial hemorrhage or edema. -CXR 09/27: No acute cardiopulmonary process appreciated. -CT L-spine: Degenerative disc disease and spondylosis as described. At L3/4, changes contribute to severe bilateral neural foraminal narrowing. -CT C-spine: No acute findings -1 pill carbidopa/levodopa QID per Dr. Sanford to continue at discharge -PT/OT to continue at discharge Elevated Cr on CKD3 -Cr baseline noted to be 1.6 a month ago, currently 1.59 this AM -s/p gentle fluids with improvement -Avoid nephrotoxic medications Chronic hypoxic respiratory failure - Patient reports that she is a smoker, actively for 50 years - Denies the diagnosis of COPD - Patient uses 2L at baseline - Continue with inhaled therapy as ordered CAD - History of [place] x3, x12 stents, most recent 2009 - c/w all home meds Paroxysmal A. fib - As per record, however patient denies knowing this diagnosis - EKG currently is normal sinus rhythm - c/w Digoxin - c/w ASA 81 HTN - BP slightly elevated - F/u with PCP Pacemaker / AICD (2012) Stroke (2014) - c/w ASA Brain aneurysm - Patient reported that no intervention was required Myasthenia Gravis Hx - See above Macrocytic anemia - c/w Vitamin B12 Fibromyalgia / Depression / Anxiety - c/w Gabapentin, Sertraline, Bupropion, Clonazepam, Spinal stenosis / Arthritis / Tremors - c/w Tylenol Calcium / Vitamin D deficiency - c/w Vitamin D and Calcium carbonate GERD - c/w Omeprazole Dispo: Neurology can f/u in o/p clinic. PT/OT : home with home services TIME SPENT ON DISCHARGE: Greater than 30 minutes. Vital Signs/I&Os Vital Signs Date Time Temp Pulse Resp B/P (MAP) Pulse Ox O2 Delivery O2 Flow Rate FiO2 10/06/20 09:31 2.0 10/06/20 09:24 92 10/06/20 06:00 97.3 18 124/80 (95) 96 Nasal Cannula I&O- Last 24 Hours up to 6 AM 10/06/20 06:00 Intake Total 1340 ml Balance 1340 ml Laboratory Data Labs 24H Laboratory Tests 2 10/06/20 07:05: Nucleated Red Blood Cells % (auto) 0.0, Anion Gap 1L, Glomerular Filtration Rate 33.8L, Calcium Level 8.9, Total Bilirubin 0.2, Aspartate Amino Transf (AST/SGOT) 15, Alanine Aminotransferase (ALT/SGPT) 6L, Alkaline Phosphatase 83, Total Protein 6.2L, Albumin 2.8L, Albumin/Globulin Ratio 0.8L CBC/BMP Laboratory Tests 10/06/20 07:05 Microbiology Microbiology 09/27/20 Urine Culture - Final, Complete Discharge Medications Scheduled Aspirin (Aspirin EC) 81 Mg Tablet.dr, 81 MG PO DAILY, (Reported) Bupropion HCl (Wellbutrin Sr) 100 Mg Tab.sr.12h, 100 MG PO DAILY, (Reported) Calcium Carbonate (Tums) 200 Mg Tab.chew, 500 MG PO DAILY, (Reported) Carbidopa/Levodopa (Carbidopa-Levodopa 25-100 Tab) 1 Each Tablet, 1 TAB PO QID Cholecalciferol (Vitamin D3) (D3-50) 1,250 Mcg Capsule, 1,250 MCG PO QMONTH, (Reported) Cholestyramine (with Sugar) (Questran Packet) 4 Gm Powd.pack, 4 GM PO BID, (Reported) Clonazepam (Clonazepam) 0.5 Mg Tablet, 0.5 MG PO QHS, (Reported) Cyanocobalamin (Vitamin B-12) (Vitamin B-12) 500 Mcg Tablet, 500 MCG PO DAILY, (Reported) Digoxin (Digoxin) 125 Mcg Tablet, 125 MCG PO 3XW, (Reported) MON, WED, FRI Gabapentin (Gabapentin) 300 Mg Capsule, 600 MG PO DAILY, (Reported) Levomefolate Calcium (l-Methylfolate) 15 Mg Tablet, 15 MG PO DAILY, (Reported) Omeprazole (Omeprazole) 40 Mg Capsule.dr, 40 MG PO DAILY, (Reported) Potassium Chloride (Potassium Chloride) 20 Meq Tablet.er, 20 MEQ PO 3XW, (Repo rted) MON, WED, FRI Sacubitril/Valsartan (Entresto 24 mg-26 mg Tablet) 1 Each Tablet, 0.5 TAB PO BID, (Reported) Sertraline HCl (Sertraline HCl) 100 Mg Tablet, 100 MG PO DAILY, (Reported) Torsemide (Torsemide) 20 Mg Tablet, 10 MG PO DAILY, (Reported) Vit A/Vit C/Vit E/Zinc/Copper (Preservision Areds Tablet) 1 Each Tablet, 1 TAB PO DAILY, (Reported) Scheduled PRN Acetaminophen (Tylenol Arthritis) 650 Mg Tablet.er, 1,300 MG PO Q8H PRN for PAIN, (Reported) Albuterol Sulfate (Ventolin Hfa) 18 Gm Hfa.aer.ad, 2 PUFFS INH Q4H PRN for SOB/WHEEZING, (Reported) Clonazepam (Clonazepam) 0.5 Mg Tab.rapdis, 0.5 MG PO DAILY PRN for ANXIETY, (Reported) Epinephrine (Epinephrine) 0.3 Mg/0.3 Ml Auto.injct, 0.3 MG INJ PRN PRN for ALLERGIC REACTION, (Reported) Glycerin/Propylene Glycol (Artificial Tears Drops) 15 Ml Drops, 1 DROP OU QID PRN for DRY EYES, (Reported) Ipratropium/Albuterol Sulfate (Iprat-Albut 0.5-3(2.5) mg/3 ml) 3 Ml Ampul.neb, 1 HANSA INH QID PRN for SHORTNESS OF BREATH, (Reported) Lidocaine/Menthol (Icy Hot 4%-1% Patch) 1 Each Adh..patch, 1 PATCH TOP TID PRN for BACK PAIN, (Reported) Menthol/Camphor (Freeze It Relief Gel) 113.4 Gm Gel..gram., 1 DOSE TOP BID PRN for SCIATIC PAIN, (Reported) APPLY TO RIGHT LEG AND BACK Nitroglycerin (Nitrostat) 0.4 Mg Tab.subl, 0.4 MG SL NITRO PRN for CHEST PAIN, (Reported) Allergies Coded Allergies: caffeine (Verified Allergy, Mild, 11/23/20) heart palpitations bee venom protein (honey bee) (Verified Allergy, Unknown, 09/27/20) Anaphyalxis strawberry (Verified Allergy, Unknown, 09/27/20) Anaphylaxis Mari Blas MD Oct 06, 2020 16:33
== END 2020-10-06 14:34 | disposition home or self-care (01) | DRG 948 ==
LOC: M ED 10:56 → EDSEX 10:56 → EDBD 10:56 → M ED INP 14:21 → ENRESERV 14:57 → M MSPAV 15:23
PROVIDERS: ADMIT Internal Medicine; ATTEND Internal Medicine
DX: R53.1 Weakness (principal); J96.11 Chronic respiratory failure with hypoxia; N18.30 Chronic kidney disease, stage 3 unspecified; F17.200 Nicotine dependence, unspecified, uncomplicated; I25.10 Atherosclerotic heart disease of native coronary artery without angina pectoris; I25.2 Old myocardial infarction; G70.00 Myasthenia gravis without (acute) exacerbation; I48.0 Paroxysmal atrial fibrillation; I12.9 Hypertensive chronic kidney disease with stage 1 through stage 4 chronic kidney disease, or unspecified chronic kidney disease; M79.7 Fibromyalgia; Z66 Do not resuscitate; F32.9 Major depressive disorder, single episode, unspecified; F41.9 Anxiety disorder, unspecified; D53.9 Nutritional anemia, unspecified; J44.9 Chronic obstructive pulmonary disease, unspecified; E55.9 Vitamin D deficiency, unspecified; R29.6 Repeated falls; R25.1 Tremor, unspecified; R26.89 Other abnormalities of gait and mobility; E83.52 Hypercalcemia; M47.816 Spondylosis without myelopathy or radiculopathy, lumbar region; K21.9 Gastro-esophageal reflux disease without esophagitis; M48.02 Spinal stenosis, cervical region; G20 Parkinson's disease; Z95.0 Presence of cardiac pacemaker; Z86.73 Personal history of transient ischemic attack (TIA), and cerebral infarction without residual deficits; Z79.82 Long term (current) use of aspirin; Z79.899 Other long term (current) drug therapy; Z91.030 Bee allergy status; Z91.018 Allergy to other foods; Z98.1 Arthrodesis status; Z95.5 Presence of coronary angioplasty implant and graft; Z99.81 Dependence on supplemental oxygen; Z20.828 Contact with and (suspected) exposure to other viral communicable diseases

== ENCOUNTER → 2020-10-21 | Outpatient (REF) | payer MEDICARE, MEDICAID ==
[~2020-10-21] MED LIST changes: +ACET650T61 PO; +ARTIDRO OU; +ASPI81TA27 PO; +CARB25TA9 PO; +CLON0.5T17 PO; +CLON0.5T2 PO; +D3-5CAP PO; +DIGO0.123 PO; +ENTR1TAB PO; +EPIN0.3I11 INJ; +GABA-843 PO; +ICY1PAD TOP; +IPRA0.00 INH; +L-ME15TA5 PO; +NITR4TASL SL; +OCUVTAB4 PO; +OMEP-221 PO; +POTA1TAB14 PO; +QUES4POW PO; +SERT-138 PO; +TORS20TA2 PO; +TUMS500C PO; +VENTAER INH; +VITA500T41 PO; +WELL100T2 PO; +[UNRECOGNIZED DRUG - CODE] TOP
[2020-10-21 18:19] LABS: APPEARANCE, URINE HAZY (CLEAR); BACTERIA, URINE AUTO NEGATIVE (NEGATIVE); BILIRUBIN, URINE AUTO NEGATIVE (NEGATIVE); BLOOD, URINE BLOOD NEGATIVE (NEGATIVE); COLOR, URINE YELLOW (YELLOW); GLUCOSE, URINE (UA) AUTO NEGATIVE (NEGATIVE); KETONE, URINE AUTO NEGATIVE (NEGATIVE); LEUKOCYTE ESTERASE, URINE AUTO 2+ (NEGATIVE); NITRITE, URINE AUTO NEGATIVE (NEGATIVE); PROTEIN, URINE AUTO NEGATIVE (NEGATIVE); RBC, URINE AUTO 2 /HPF (0-3); SPECIFIC GRAVITY URINE AUTO 1.015 (1.002-1.035); SQUAMOUS EPITHELIAL CELL UR AU 4 /HPF (0-6); UROBILINOGEN, URINE AUTO 0.2 mg/dL (0.0-2.0); WBC, URINE AUTO 21 /HPF (0-3)
== END ==
LOC: M SFHCCLAY 15:47
PROVIDERS: ATTEND Nurse Practitioner Family
DX: R30.0 Dysuria (principal)

== ENCOUNTER → 2020-10-27 | Outpatient (REF) | payer MEDICARE, MEDICAID ==
[~2020-10-27] MED LIST changes: +ACET1TAB16 PO; +BISO5TAB14 PO; +DOK1CAP7 PO; +GABA-1171 PO; +GABA-282 PO; -GABA-843 PO; +ROSU40TA4 PO
[2020-10-27 16:33] LABS: APPEARANCE, URINE HAZY (CLEAR); BACTERIA, URINE AUTO NEGATIVE (NEGATIVE); BILIRUBIN, URINE AUTO NEGATIVE (NEGATIVE); BLOOD, URINE BLOOD NEGATIVE (NEGATIVE); COLOR, URINE YELLOW (YELLOW); GLUCOSE, URINE (UA) AUTO NEGATIVE (NEGATIVE); KETONE, URINE AUTO NEGATIVE (NEGATIVE); LEUKOCYTE ESTERASE, URINE AUTO 1+ (NEGATIVE); MUCUS, URINE SMALL (NEGATIVE); NITRITE, URINE AUTO NEGATIVE (NEGATIVE); PROTEIN, URINE AUTO NEGATIVE (NEGATIVE); RBC, URINE AUTO 1 /HPF (0-3); SPECIFIC GRAVITY URINE AUTO 1.013 (1.002-1.035); SQUAMOUS EPITHELIAL CELL UR AU 4 /HPF (0-6); UROBILINOGEN, URINE AUTO 0.2 mg/dL (0.0-2.0); WBC, URINE AUTO 14 /HPF (0-3)
== END ==
LOC: M SFHCCLAY 15:59
PROVIDERS: ATTEND Nurse Practitioner Family
DX: R30.0 Dysuria (principal)
CPT/HCPCS: 81001; 87086; G0463

== ENCOUNTER 2020-11-17 13:39 | Inpatient (IN) | payer MEDICARE, MEDICAID ==
[~2020-11-17] VITALS: Ht 162.6 cm; Wt 66.4 kg
[~2020-11-17 13:39] MED LIST changes: -ACET1TAB16 PO; -BISO5TAB14 PO; -DOK1CAP7 PO; -GABA-1171 PO; -ROSU40TA4 PO
[2020-11-17 14:21] LABS: BASO % 0.4 % (0.0-1.0); EOS # 0.4 10^3/uL (0.0-0.5); EOS % 4.1 % (0.0-3.0); HEMATOCRIT 30.9 % (36.0-47.0); HEMOGLOBIN 9.4 g/dl (12.0-15.5); LYMPH # 3.2 10^3/uL (1.5-5.0); LYMPH % 31.9 % (24.0-44.0); MEAN CORPUSCULAR HEMOGLOBIN 30.3 pg (27.0-33.0); MEAN CORPUSCULAR HGB CONC 30.4 g/dl (32.0-36.5); MEAN CORPUSCULAR VOLUME 99.7 fl (80.0-96.0); MONO # 0.7 10^3/uL (0.0-0.8); MONO % 6.9 % (0.0-5.0); NEUTROPHILS # 5.7 10^3/uL (1.5-8.5); NEUTROPHILS % 56.4 % (36.0-66.0); PLATELET COUNT, AUTOMATED 274 10^3/uL (150-450); WHITE BLOOD COUNT 10.1 10^3/uL (4.0-10.0)
[2020-11-17 14:27] LABS: INR 0.98; PROTHROMBIN TIME 13.2 SECONDS (12.5-14.3)
--- NOTE | 2020-11-17 14:27 | REP ---
INDICATION: weakness. COMPARISON: 09/27/2020. TECHNIQUE: SINGLE PORTABLE AP VIEW OF THE CHEST WAS PERFORMED. FINDINGS: Chronic fibrotic changes bilaterally are grossly unchanged. No definite acute infiltrate is seen. The heart appears somewhat enlarged. There is calcification and tortuosity of the thoracic aorta. A left pacemaker again noted. IMPRESSION: Chronic changes with no definite acute infiltrate. <Electronically signed by Danial Garcia > 11/17/20 [id number]
[2020-11-17 14:28] LABS: PARTIAL THROMBOPLASTIN TIME 45.8 SECONDS (24.2-38.5)
[2020-11-17] MEDS ORDERED: ACETAMINOPH W/CODEINE #3 TAB UD PO ONE (14:30)
[2020-11-17 14:39] LABS: BLOOD UREA NITROGEN 39 MG/DL (7-18); CREATININE FOR GFR 3.21 MG/DL (0.55-1.30); GLUCOSE, FASTING 122 MG/DL (70-100)
[2020-11-17 14:40] LABS: CALCIUM LEVEL 8.3 MG/DL (8.8-10.2); CARBON DIOXIDE LEVEL 26 MEQ/L (21-32); CHLORIDE LEVEL 109 MEQ/L (98-107); CK-MB VALUE MASS 1.3 NG/ML (<3.6); CPK CREATINE PHOSPHOKINASE 74 U/L (26-192); MB/CK RELATIVE INDEX 1.76 (< OR =4); NT-PRO BNP 1122 PG/ML (<125); POTASSIUM SERUM 4.5 MEQ/L (3.5-5.1); SODIUM LEVEL 139 MEQ/L (136-145); TROPONIN I < 0.02 NG/ML (< 0.10)
--- OUTSIDE RECORDS SUMMARY | 2020-11-17 15:11 | CCD ---
Author Author [facility] Organization [facility] Address Unknown Phone Unavailable Care Team Providers Care Construction Equipment Mechanic Helper Name Role Phone Efeousmane Page Unavailable PROBLEMS Type Condition ICD9-CM Code QXR10-PS Code Onset Dates Condition S tatus SNOMED Code Notes Problem Coronary artery disease of n ative heart with stable angina pectoris, unspecified vessel or lesion type I25.118 Active 44 4893050 Problem Depression with anxiety F41.8 Active 12985519 6 Problem Macular degeneration, unspecified laterality, unspecif ied type H35.30 Active 061706493 Problem Myasthenia gravis G70.00 Active 77609787 Problem Atrial fibrillation, unspecified type I48.91 Ac tive 58820494 Problem Chronic obstructive pulmonary disease, unspecified COPD ty pe J44.9 Active 67405562 Problem Gastroesophageal reflux disease, esophagitis pre sence not specified K21.9 Active 336630150 ALLERGIES Allergen (clinical drug ingredient) Drug/Non Drug Allergy do cumented on EMR Reaction Allergy Type Onset Date Status strawberries Anaphylaxis Non Drug Allergy Activ e bees Anaphylaxis Non Drug Allergy Active ENCOUNTERS from 1945 to 2020-11-02 Encounter Location Date Provider Diagnosis [address] [address] Oct Page Hendricks IMMUNIZATIONS No Information SOCIAL HISTORY Tobacco Use: Social History Observation Description Date Details (start date - stop date) Current Smoker Sex Assigned At : Social History Observation Description Sex Assigned At Unknown Language: Question Answer Notes Languages spoken: Albanian Sexual Hx: Question Answer Notes Had sex in the last 12 months (vaginal, oral, or anal)? No Have you ever had an STD? No Alcohol Screening: Question Answer Notes Did you have a drink containing alcohol in the past year? No Points 0 Interpretation Negative Tobacco Use: Question Answer Notes Are you a: current smoker 50 pack year hx How many cigarettes a day do you smoke? 5 or less Are you interested in quitting? Thinking about quitting Counseled the patient on smoking cessation, education provid ed 08/04/2020 REASON FOR REFERRAL No Information VITAL SIGNS No information MEDICATIONS Medication SIG (Take, Route, Frequency, Duration) Notes Start Da te End Date Status Icy Hot Back 5 % 1 patch as needed Externally Three times a day Active Ventolin HFA 108 (90 Base) MCG/ACT 1 puff as needed Inhalation ever y 4 hrs Active L-Methylfolate 15 MG 1 tablet Orally Once a day for 30 day(s) Active Digoxin 125 MCG as directed Orally and sunday for 30 days Active Potassium Chloride Lavern ER 20 MEQ 1 tablet with food O rally and sunday for 90 day(s) Active Carbidopa-Levodopa 25-100 MG 1 tablet Orally FOUR TIMES a day Active DuoNeb 2.5mg-0.5mg/3ml nebulizer four times daily as needed Active Questran 4 GM/DOSE 1 scoop Orally bid Active Gabapentin 300 MG 2 capsule Orally Once a day Active Crestor 10 MG 1 tablet Orally Once a day for 90 day(s) Aug, Active Wellbutrin SR 100 MG 1 tablet in the morning Orally Once a day f or day(s) Active Tylenol 8 Hour Arthritis Pain 650 MG 2 tablets as need ed Orally every 8 hrs for 90 day(s) Active Nitrostat 0.4 MG as directed Sublingual every 5 min x 3 doses fo r chest pain Active Artificial Tears 1 % 1 drop Ophthalmic four times daily Active Aspirin 81 MG 1 tablet Orally Once a day Active PreserVision AREDS - 1 tab Orally Daily for 90 day(s) 29 D 2019 Active Freeze It 0.2-3.5 % 1 application as needed Externally Twice a day Active Cholecalciferol 1.25 MG (09876 UT) 1 capsule Orally once sunly for 90 day(s) Active Tums 500 MG 1 tablet Orally Once a day for 30 day(s) Active Sertraline HCl 100 MG 1 tablet Orally Once a day for 90 day(s) Active Omeprazole 40 MG 1 capsule 30 minutes before morning meal Orally Once a day for 90 day(s) Active Oxygen 2LNC continuous nasal cannul a with portability DX: R09.2 oxygen saturation RA at rest: 88%, RA with exertion: 84% 30 Jul, 2020 Active Vitamin B12 500 MCG 1 tablet Orally Once a day for 90 day(s) Active Torsemide 20 MG 1/2 tablet Orally every morning for 90 day(s) Active EpiPen 2-Jose Antonio 0.3 MG/0.3ML as directed Injection Active Clonazepam 0.5 MG 1 tablet at bedtime and may take an additional dose once a day as needed Orally Up to TID MDD #3 for 30 Days Active Entresto 24-26 MG 1/2 tablet Orally Twice a day for 90 days Active PROCEDURES No Information RESULTS No Results REASON FOR VISIT refill MEDICAL (GENERAL) HISTORY Type Description Date Medical History fibromyalgia Medical History spinal stenosis Medical History arthritis Medical History COPD Medical History torn meniscus right knee Medical History Brain aneurysm Medical History Pacemaker/defibrillator Medical History 12 Heart stents Medical History Stroke Medical History myasethemia gravis Medical History Depression/anxiety Medical History AFIB Medical History Acid Reflux Medical History Tremors Surgical History left arm titanium plate and 8 screws Surgical History spinal fusion Surgical History Cardiac stenting Surgical History pacemaker/AICD Surgical History benign tumor removal from right shoulder blade Surgical History cystocele/rectocele repair Surgical History CAN Surgical History tonsils and adenoids Surgical History colonoscopy Hospitalization History Leg weakness 10/2020 [place] No Information Health Concerns No Information MEDICAL EQUIPMENT No Information MENTAL STATUS No Information FUNCTIONAL STATUS No Information ASSESSMENTS No Information PLAN OF TREATMENT Medication Medication Name Sig Start Date Stop Date Vitamin B12 500 MCG 1 tablet Orally Once a day for 90 day(s) Entresto 24-26 MG 1/2 tablet Orally Twice a day for 90 days Omeprazole 40 MG 1 capsule 30 minutes before morning meal Orally Once a day for 90 day(s) PreserVision AREDS - 1 tab Orally Daily for 90 day(s) Oct, Digoxin 125 MCG as directed Orally sun-sun and sunday for 30 day s Cholecalciferol 1.25 MG (45128 UT) 1 capsule Orally once sun for 90 day(s) Next Appt Details Provider Name:Page Hendricks, 11-15 03:30:00 PM, [address] [place], [address], Provider Name:Page Hendricks 11-22 11:00:00 AM, [address] [place], [address], Insurance Providers Payer Name Payer Address Payer Phone Insured Name Patient Relati onship to Insured Coverage Start Date Coverage End Date MEDICARE Part A and B [address] [facility] [address] [phone] JANEEN JEFFERSON self MEDICAID [employer] [address] [facility] [id number] JANEEN JEFFERSNO self
--- OUTSIDE RECORDS SUMMARY | 2020-11-17 15:11 | CCD | Continuity of Care Document ---
Author Author Ashwini ROBLES MD Organization Unknown Address [address] [place] [address], [facility] [place] [address] Phone [phone] Care Team Providers Care Senior Interior Designer Name Role Phone Rosa Hendricksashely PETERS AUTM [phone] Kaila Sanford MD AUTM [phone] Usman Richard MD AUTM [phone] Problems Description No Information Available Social History Type Date Description Comments Sex Unknown ETOH Use Does not consume alcohol Tobacco Use Start: Unknown Patient is a current smoker, smo kes every day started at age 22, at most 1 ppd, quit in 2014, currently using 1 cigarette every few days Smoking Status Reviewed: 11/02/20 Patient is a current smoker, smokes every day started at age 22, at most 1 ppd, quit in 2014, currently using 1 cigarette every few days Exercise Type/Frequency Physical Therapy daily Exercise Limitations Weakness Exercise Limitations Imbalance Allergies, Adverse Reactions, Alerts Active Allergies Reaction Severity Comments Date Bee Sting Severe Anaphylaxis 10/05/2020 Strawberries Severe Anaphylaxis 10/05/2020 Medications Active Medications SIG Qnty Indications Ordering Provide r Date Rosuvastatin Calcium 40mg Tablets one tablet by mouth daily at bedtime 90tabs E78.2 Duke carlos MD 11/02/2020 Bisoprolol Fumarate 5mg Tablets 1/2 by mouth every day 45tabs I50.42 Duke Robles MD 11/02/2020 I48.0 Entresto 24-26mg Tablets 1 tab by mouth twice a day 60tabs I50.42 Duke Robles MD 11/02/2020 Carbidopa-Levodopa 25-100mg Tablet s 1 by mouth four times a day Unknown 0 L-Methylfolate Calcium 15mg Tablet s once daily Unknown 11/01/2020 Wellbutrin SR 100mg Tablets ER 12H R 1 by mouth daily in am Unknown 10/04/2020 Vitamin B12 500mcg Tablets 1 by mouth every day Unknown 10/04/2020 Ventolin HFA 108(90Base) mcg/Act A erosol 2 puffs as needed Unknown 10/04/2020 Tylenol 8 Hour 650mg Tablets ER 1 by mouth every 4 hours daily, as needed Unknown 1 12/04/2019 Tums 500mg Chewtabs 1 tablet by mouth 4 times a day when necessary heartburn Unknown 10/04/2020 Torsemide 20mg Tablets 1/2 by mouth every day Unknown 10/04/2020 Sertraline HCL 100mg Tablets 1 by mouth every day Unknown 10/04/2020 Preservision Areds 2 Areds 2 Capsu les 1 by mouth twice a day Unknown 10/04/[address] 1 by mouth every day Unknown 10/04/2020 Nitroglycerin 0.4mg Tablets Sub 1 tab sl every 5 min times 3 doses as needed chest disc U nknown 10/04/2020 Gabapentin 300mg Capsules 2 by mouth daily Unknown 10/04/2020 Epipen 2-Jose Antonio 0.3mg/0 .3ML Solution Auto-Inject inject for allergic reactions as directed Unknown 10/04/2020 Clonazepam 0.5mg Tablets 1 by mouth at bedtime Unknown 10/04/2020 Vitamin D (Ergocalciferol) 1.25mg (51139 Ut) Capsules 1 by mouth once monthly Unknown 09/[address] 1 by mouth every day Unknown 10/04/2020 History Medications Digox 125mcg Tablets 1 by mouth every M,W,F I48.0 Unknown 10/04/2020 - I50.42 Entresto 24-26mg Tablets 1/2 tab by mouth twice a day I50.42 Unknown 10/04/2020 - Potassium Chloride ER 20Meq Tablet s ER 1 by mouth every M,W,F N18.30 Unknown 10/04/2020 - 11/02/2020 I50.42 Immunizations Description No Information Available Vital Signs Date Vital Result Comment 11/02/2020 12:36pm Weight 156.00 lb Home Weight 152lb home weight Height 64 inches 5'4" BMI (Body Mass Index) 26.8 kg/m2 Heart Rate 80 /min BP Systolic Sitting 156 mmHg Omron, adult cuff/Ra BP Diastolic Sitting 76 mmHg Omron, adult cuff/R a Results Test Acquired Date Facility Test Result H/L Range Note CMP 10/06/2020 [facility] - not interfaced (315)- - Albumin Serum/Plasma 2.8 Alt - SGPT 6 Calcium Ser/Plasma Mass/Vol 8.9 Carbon Dioxide Ser/Plasm 35 Chloride Serum/Plasma 103 Alkaline Phosphatase 83 Potassium 4.7 Protein Total 6.2 Sodium 139 Ast - Sgot 15 BUN - Urea Nitrogen 28 Glucose 101 High 70-100 Creatinine For GFR 1.59 CBC without Differential 10/06/2020 [facility] - not inter faced (315)- - White Blood Count 7.0 4.0-10.0 Red Blood Count 2.98 Low 4.00-5.40 Platelets 197 172-450 Hemoglobin 9.1 Hematocrit 29.5 CPK & CPK MB 09/27/2020 [facility] - not interfaced (315)- - CPK 117 CPK-MB 1.5 Laboratory test finding 09/27/2020 [facility] - not interf aced (315)- - Troponin <0.02 Thyroid Stimulating Hormone 0.626 Free T4 0.64 CMP 08/05/2020 [facility] - not interfaced (315)- - Albumin Serum/Plasma 3.6 Alt - SGPT 14 Calcium Ser/Plasma Mass/Vol 8.8 Carbon Dioxide Ser/Plasm 28 Chloride Serum/Plasma 105 Alkaline Phosphatase 93 Potassium 4.1 Protein Total 7.0 Sodium 140 Ast - Sgot 13 BUN - Urea Nitrogen 27 Glucose 122 High 70-110 Creatinine For GFR 1.67 Lipid Profile/Cardiac Risk Pro 08/05/2020 [facility] - not interfaced (315)- - Triglycerides 290 High <150 Cholesterol 296 High <200 HDL 48 >40.0 LDL Cholesterol 190 Chol/HDL Ratio 6.166 High <5 Laboratory test finding 08/05/2020 [facility] - not interf aced (315)- - Thyroid Stimulating Hormone 0.777 Free T4 0.84 Hemoglobin A1c 08/05/2020 [facility] - not interfaced (315)- - Hemoglobin A1c 5.7 CBC without Differential 08/05/2020 [facility] - not inter faced (315)- - White Blood Count 7.1 4.0-10.0 Red Blood Count 3.52 Low 4.00-5.40 Platelets 246 172-450 Hemoglobin 10.4 Hematocrit 34.2 Procedures Date Code Description Status 11/02/2020 10717 ECG 12-Lead Completed Medical Devices Description No Information Available Encounters Type Date Location Provider Dx Diagnosis Office Visit 11/02/2020 12:30p Main Office Duke Robles MD I25.1 0 Athscl heart disease of pauma coronary artery w/o ang pctrs I25.2 Old myocardial infarction Z95.5 Presence of coronary angiopl asty implant and graft I48.0 Paroxysmal atrial fibrillati on I50.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 I25.5 Ischemic cardiomyopathy R94.31 Abnormal electrocardiogram [ ECG] [EKG] Z95.810 Presence of automatic (impla ntable) cardiac defibrillator E78.2 Mixed hyperlipidemia N18.30 Chronic kidney disease, stag e 3 unspecified F17.210 Nicotine dependence, cigaret caroline, uncomplicated Z71.3 Dietary counseling and surve illance Z71.6 Tobacco abuse counseling Assessments Date Code Description Provider 11/02/2020 I25.10 Atherosclerotic hear t disease of pauma coronary artery without angina pectoris Duke Robles MD 11/02/2020 I25.2 Old myocardial infarction Duke Robles MD 11/02/2020 Z95.5 Presence of coronary angioplasty implant and graft Duke Robles MD 11/02/2020 I48.0 Paroxysmal atrial fibrillation D avichung Robles MD 11/02/2020 I50.42 Chronic combined sys tolic (congestive) and diastolic (congestive) heart failure Duke Robles MD 11/02/2020 I25.5 Ischemic cardiomyopathy Duke Robles MD 11/02/2020 R94.31 Abnormal electrocardiogram [ECG] [EKG] Duke Robles MD 11/02/2020 Z95.810 Presence of automatic (implantab le) cardiac defibrillator Duke Robles MD 11/02/2020 E78.2 Mixed hyperlipidemia Duke manley MD 11/02/2020 N18.30 Chronic kidney disease, stage 3 unspecified Duke Robles MD 11/02/2020 F17.210 Nicotine dependence, cigarettes, uncomplicated Duke Robles MD 11/02/2020 Z71.3 Dietary counseling and surveilla nce Duke Robles MD 11/02/2020 Z71.6 Tobacco abuse counseling Duke Robles MD Plan of Treatment Future Appointment(s):* 12/03/2020 2:00 pm - ECHO at Main Office * 11/16/2020 11:00 am - Stress Nuclear/Reg Treadmill at Main Office * 12/08/2020 8:15 am - Duke Robles MD at Main Office 11/02/2020 - Duke Robles MD* I25.10 Atherosclerotic heart disease of pauma coronary artery without angina pectoris* New Xrays:* [facility] Myocardial Perfusion Spect Multiple Studies, Scheduled: 11/16/20 * I25.2 Old myocardial infarction * Z95.5 Presence of coronary angioplasty implant and graft * I48.0 Paroxysmal atrial fibrillation* New Medication:* Bisoprolol Fumarate 5 mg - 1/2 by mouth every day * I50.42 Chronic combined systolic (congestive) and diastolic (congestive) heart failure* New Medication:* Bisoprolol Fumarate 5 mg - 1/2 by mouth every day * Entresto 24-26 mg - 1 tab by mouth twice a day * New Xrays:* US Echocardiogram Transthoracic W Doppler And Color Flow, Scheduled: 12/03/20 * I25.5 Ischemic cardiomyopathy * R94.31 Abnormal electrocardiogram [ECG] [EKG] * Z95.810 Presence of automatic (implantable) cardiac defibrillator * E78.2 Mixed hyperlipidemia* New Medication:* Rosuvastatin Calcium 40 mg - one tablet by mouth daily at bedtime * N18.30 Chronic kidney disease, stage 3 unspecified* Referral:* Usman Richard MD, Nephrology * F17.210 Nicotine dependence, cigarettes, uncomplicated * Z71.3 Dietary counseling and surveillance * Z71.6 Tobacco abuse counseling * All * Follow up:* Clinic visit & ICD in [address] Robles. Functional Status Functional Condition Comment Date Status Requires assistance with ambulating with rolling walker Active Requires assistance with bathing Aide comes in to assist with ba thing Active Independent with dressing Active Independent with feeding Active Independent with grooming Active Independent with standing Active Independent with toileting Activ e Mental Status Description No Information Available Referrals Refer to Reason for Referral Status Appt Date Usman Richard MD Please evaluate & manage CKD stage III & anemia unspecified. Thanks! Created [facility] [address], [address], [place] [id number] [phone]
--- OUTSIDE RECORDS SUMMARY | 2020-11-17 15:11 | CCD ---
Author Author [facility] Organization [facility] Address Unknown Phone Unavailable Care Team Providers Care Chief Fishery Division Name Role Phone Efeousmane Page Unavailable PROBLEMS Type Condition ICD9-CM Code PFU79-IP Code Onset Dates Condition S tatus SNOMED Code Notes Problem Coronary artery disease of n ative heart with stable angina pectoris, unspecified vessel or lesion type I25.118 Active 44 4170399 Problem Depression with anxiety F41.8 Active 80295057 6 Problem Macular degeneration, unspecified laterality, unspecif ied type H35.30 Active 864357935 Problem Myasthenia gravis G70.00 Active 35241997 Problem Atrial fibrillation, unspecified type I48.91 Ac tive 98654280 Problem Chronic obstructive pulmonary disease, unspecified COPD ty pe J44.9 Active 57689940 Problem Gastroesophageal reflux disease, esophagitis pre sence not specified K21.9 Active 288005376 ALLERGIES Allergen (clinical drug ingredient) Drug/Non Drug Allergy do cumented on EMR Reaction Allergy Type Onset Date Status strawberries Anaphylaxis Non Drug Allergy Activ e bees Anaphylaxis Non Drug Allergy Active ENCOUNTERS from 1945 to 2020-11-04 Encounter Location Date Provider Diagnosis [address] [place] [address] Oct Page Hendricks IMMUNIZATIONS No Information SOCIAL HISTORY Tobacco Use: Social History Observation Description Date Details (start date - stop date) Current Smoker Sex Assigned At : Social History Observation Description Sex Assigned At Unknown Language: Question Answer Notes Languages spoken: Marshallese Sexual Hx: Question Answer Notes Had sex [...] Once a day for 30 day(s) Active Gabapentin 300 MG 2 capsule Orally Once a day for 90 days Active Potassium Chloride Lavern ER 20 MEQ 1 tablet with food O rally and sunday for 90 day(s) Active Carbidopa-Levodopa 25-100 MG 1 tablet Orally FOUR TIMES a day Active DuoNeb 2.5mg-0.5mg/3ml nebulizer four times daily as needed Active Questran 4 GM/DOSE 1 scoop Orally bid Active Cholecalciferol 1.25 MG (30602 UT) 1 capsule Orally once sun for 90 day(s) Active Crestor 10 MG 1 tablet Orally Once a day for 90 day(s) Aug, Active Wellbutrin SR 100 MG 1 tablet in the morning Orally Once a day or day(s) Active Tylenol 8 Hour Arthritis Pain 650 MG 2 tablets as need ed Orally every 8 hrs for 90 day(s) Active Nitrostat 0.4 MG as directed Sublingual every 5 min x 3 doses fo r chest pain Active Artificial Tears 1 % 1 drop Ophthalmic four times daily Active Tums 500 MG 1 tablet Orally Once a day for 30 day(s) Active PreserVision AREDS - 1 tab Orally Daily for 90 day(s) 29 D 2019 Active Freeze It 0.2-3.5 % 1 application as needed Externally Twice a day Active Aspirin 81 MG 1 tablet Orally Once a day Active Digoxin 125 MCG as directed Orally and sunday for 30 days Active Sertraline HCl 100 MG 1 tablet [...] Information RESULTS No Results REASON FOR VISIT Refills MEDICAL (GENERAL) HISTORY Type Description Date Medical [...] for 30 day s Cholecalciferol 1.25 MG (64912 UT) 1 capsule Orally once sun for 90 day(s) Gabapentin 300 MG 2 capsule Orally Once a day for 90 days Next Appt Details Provider Name:Page Hendricks, 11-15 03:30:00 PM, [address] [place] [address], [address], Provider Name:Page Hendricks 2021-0 1-18 11:00:00 AM, [address], [place], [address], Insurance Providers Payer Name Payer Address Payer Phone Insured Name Patient Relati onship to Insured Coverage Start Date Coverage End Date MEDICAID [employer] [address] [facility] [id number] JANEEN JEFFERSON self MEDICARE Part A and B [address] [facility] [address] [phone] JANEEN JEFFERSON self
--- OUTSIDE RECORDS SUMMARY | 2020-11-17 15:11 | CCD | Continuity of Care Document ---
Author Ashwini Young M.D. Organization Unknown Address [address] [place] [address] Phone [phone] Care Team Providers Care Event Planner Name Role Phone RuthieLizyDeisi Mayra JIANGP-C AUTM [phone] Aaron Gaxiola M.D. AUTM [phone] Problems Active Problems Provider Date Parkinson's disease Kaila Sanford M.D. Onset: 11/03/2020 Neck pain Kaila Sanford M.D. Onset: 11/03/2020 Spondylolysis of cervical spine Kaila Sanford M.D. Onset: 1 Spondylolysis Kaila Sanford M.D. Onset: 11/03/2020 Low back pain Kaila Sanford M.D. Onset: 11/03/2020 Social History Type Date Description Comments Sex Unknown Allergies, Adverse Reactions, Alerts Description No Information Available Medications Active Medications SIG Qnty Indications Ordering Provide r Date Carbidopa-Levodopa 25-100mg Tablet s take 1 tablet by mouth 4 times a day at 9am,12noon, 3pm, and 8pm 120tabs Kaila Sanford M.D. 11/03/2020 Immunizations Description No Information Available Vital Signs Date Vital Result Comment 11/03/2020 10:39am BP Systolic 105 mmHg BP Diastolic 70 mmHg Heart Rate 68 /min Respiratory Rate 14 /min Height 64 inches 5'4" Weight 155.00 lb BMI (Body Mass Index) 26.6 kg/m2 [place] Body Weight 120 lb Results Description No Information Available Procedures Date Code Description Status 11/03/2020 3288F Fall Risk Assessment Documented Completed Medical Devices Description No Information Available Encounters Type Date Location Provider Dx Diagnosis Office Visit 11/03/2020 10:15a Main office - [place] Sunny Reeder G20 Parkinson's disease M54.2 Cervicalgia M43.02 Spondylolysis, cervical scott on M43.06 Spondylolysis, lumbar region M54.5 Low back pain Assessments Date Code Description Provider 11/03/2020 G20 Parkinson's disease Kaila Sanford M.D. 11/03/2020 M54.2 Cervicalgia Kaila Sanford M.D. 11/03/2020 M43.02 Spondylolysis, cervical region M chuckie Sanford M.D. 11/03/2020 M43.06 Spondylolysis, lumbar region Sushma Sanford M.D. 11/03/2020 M54.5 Low back pain Kaila Sanford M.D. 09/29/2020 G20 Parkinson's disease Kaila Sanford M.D. 09/27/2020 G20 Parkinson's disease Kaila Sanford M.D. Plan of Treatment No Information Available Functional Status Description No Information Available Mental Status Description No Information Available Referrals Refer to Dr Reason for Referral Status Appt Date Kaila Sanford M.D. [facility] [address] [place] [address] [phone]
--- OUTSIDE RECORDS SUMMARY | 2020-11-17 15:11 | CCD | Continuity of Care Document ---
Author Ashwini Young M.D. Organization Unknown Address [address] [place] [address] Phone [phone] Care Team Providers Care Skin Diving Teacher Name Role Phone Deisi Hendircks Mayra RAVELER-C AUTM Problems Active Problems Provider Date Parkinson's disease [...] lb BMI (Body Mass Index) 26.6 kg/m2 [place] Body Weight 120 lb Results Description No Information Available Procedures Date Code Description Status 11/03/2020 3288F Fall Risk Assessment Documented Completed Medical Devices Description No Information Available Encounters Type Date Location Provider Dx Diagnosis Office Visit 11/03/2020 10:15a Main office - [place] G20 Parkinson's disease M54.2 Cervicalgia M43.02 Spondylolysis, [...] disease Kaila Sanford M.D. Plan of Treatment Future Appointment(s):* 02/01/2021 2:15 pm - Kaila Sanford M.D. at Main office - [place] Functional Status Description No Information Available Mental Status Description No Information Available Referrals Refer to Dr Reason for Referral Status Appt Date Kaila Sanford M.D. Created [facility] [address] [place] [address] [phone]
--- OUTSIDE RECORDS SUMMARY | 2020-11-17 15:12 | CCD ---
Author Author [facility] Organization [facility] Address Unknown Phone Unavailable Care Team Providers Care Masonry Inspector Name Role Phone Page Hendricks Unavailable PROBLEMS Type Condition ICD9-CM Code BYI31-AC Code Onset Dates Condition S tatus SNOMED Code Notes Problem Coronary artery disease of n ative heart with stable angina pectoris, unspecified vessel or lesion type I25.118 Active 44 1538234 Problem Depression with anxiety F41.8 Active 27209492 6 Problem Macular degeneration, unspecified laterality, unspecif ied type H35.30 Active 628696665 Problem Myasthenia gravis G70.00 Active 32374908 Problem Atrial fibrillation, unspecified type I48.91 Ac tive 17645119 Problem Chronic obstructive pulmonary disease, unspecified COPD ty pe J44.9 Active 88937381 Problem Gastroesophageal reflux disease, esophagitis pre sence not specified K21.9 Active 214080042 ALLERGIES Allergen (clinical drug ingredient) Drug/Non Drug Allergy do cumented on EMR Reaction Allergy Type Onset Date Status strawberries Anaphylaxis Non Drug Allergy Activ e bees Anaphylaxis Non Drug Allergy Active ENCOUNTERS from 1945 to 2020-10-27 Encounter Location Date Provider Diagnosis [address] [place] [address] Oct Page Hendricks Dysuria R30.0 IMMUNIZATIONS No Information SOCIAL HISTORY Tobacco Use: Social History Observation Description Date Details (start date - stop date) Current Smoker Sex Assigned At : Social History Observation Description Sex Assigned At Unknown Language: Question Answer Notes Languages spoken: Latvian Sexual Hx: Question Answer Notes Had sex [...] Notes Start Da te End Date Status Clonazepam 0.5 MG 1 tablet at bedtime and may take an additional dose once a day as needed Orally Up to TID MDD #3 for 30 Days Active Tums 500 MG 1 tablet Orally Once a day for 30 day(s) Not-Taking Vitamin B12 500 MCG 1 tablet Orally Once a day for 90 day(s) Active Entresto 24-26 MG 1/2 tablet Orally Twice a day Active Cholecalciferol 1.25 MG (77103 UT) 1 capsule Orally once sun for 90 day(s) Active Questran 4 GM/DOSE 1 scoop Orally bid Not-Taking AREDS OTC 1 tab orally daily for 90 day(s) Active Oxygen 2LNC continuous nasal cannul a with portability DX: R09.2 oxygen saturation RA at rest: 88%, RA with exertion: 84% 30 Jul, 2020 Active Potassium Chloride Lavern ER 20 MEQ 1 tablet with food O rally and sunday for 90 day(s) Active Gabapentin 300 MG 2 capsule Orally Once a day Active Artificial Tears 1 % 1 drop Ophthalmic four times daily Active Freeze It 0.2-3.5 % 1 application as needed Externally Twice a day Active Wellbutrin SR 100 MG 1 tablet in the morning Orally Once a day or day(s) Active L-Methylfolate 15 MG 1 tablet Orally Once a day for 30 day(s) Active EpiPen 2-Jose Antonio 0.3 MG/0.3ML as directed Injection Active Digoxin 125 MCG as directed Orally and sunday for 30 days Active Carbidopa-Levodopa 25-100 MG 1 tablet Orally FOUR TIMES a day Active DuoNeb 2.5mg-0.5mg/3ml nebulizer four times daily as needed Active Nitrostat 0.4 MG as directed Sublingual every 5 min x 3 doses fo r chest pain Active Crestor 10 MG 1 tablet Orally Once a day for 90 day(s) Aug, Unknown Omeprazole 40 MG 1 capsule 30 minutes before morning meal Orally Once a day for 90 day(s) Active Icy Hot Back 5 % 1 patch as needed Externally Three times a day Active Sertraline HCl 100 MG 1 tablet Orally Once a day for 90 day(s) Active Tylenol 8 Hour Arthritis Pain 650 MG 2 tablets as need ed Orally every 8 hrs for 90 day(s) Active Torsemide 20 MG 1/2 tablet Orally every morning for 90 day(s) Active Ventolin HFA 108 (90 Base) MCG/ACT 1 puff as needed Inhalation ever y 4 hrs Active Aspirin 81 MG 1 tablet Orally Once a day Active PROCEDURES No Information RESULTS No Results REASON FOR VISIT bp 160/80, urinary frequency and buring MEDICAL (GENERAL) HISTORY Type Description Date Medical [...] History tonsils and adenoids Surgical History colonoscopy Goals Section No Information Health Concerns No Information MEDICAL EQUIPMENT No Information MENTAL STATUS No Information FUNCTIONAL STATUS No Information ASSESSMENTS Encounter Date Diagnosis Assessment Notes Treatment Notes Treatm ent Clinical Notes Oct, Dysuria (ICD-10 - R30.0) PLAN OF TREATMENT Medication Medication Name Sig Start Date Stop Date Torsemide 20 MG 1/2 tablet Orally every morning for 90 day(s) Tylenol 8 Hour Arthritis Pain 650 MG 2 tablets as need ed Orally every 8 hrs for 90 day(s) Wellbutrin SR 100 MG 1 tablet in the morning Orally Once a day or day(s) Sertraline HCl 100 MG 1 tablet Orally Once a day for 90 day(s) Potassium Chloride Lavern ER 20 MEQ 1 tablet with food O rally sun-sun and sunday for 90 day(s) Cholecalciferol 1.25 MG (46399 UT) 1 capsule Orally once sunly for 90 day(s) Vitamin B12 500 MCG 1 tablet Orally Once a day for 90 day(s) Omeprazole 40 MG 1 capsule 30 minutes before morning meal Orally Once a day for 90 day(s) AREDS OTC 1 tab orally daily for 90 day(s) Clonazepam 0.5 MG 1 tablet at bedtime and may take an additional dose once a day as needed Orally Up to TID MDD #3 for 30 Days Future Test Test Name Order Date UA URINALYSIS [id number] URINE CULTURE [id number] Next Appt Details Provider Name:Pageashely Wilksousmane, 2019-11 04:00:00 PM, [place], [address], Provider Name:Page Hendricks, 11-22 11:00:00 AM, [address], [place], [address], Insurance Providers Payer Name Payer Address Payer Phone Insured Name Patient Relati onship to Insured Coverage Start Date Coverage End Date MEDICARE Part A and B [address] [facility] [phone] JANEEN JEFFERSON self MEDICAID [employer] [address] [facility] [id number] JANEEN JEFFERSON self
--- OUTSIDE RECORDS SUMMARY | 2020-11-17 15:12 | CCD ---
Author Author [facility] Organization [facility] Address Unknown Phone Unavailable Care Team Providers Care Geriatrics Physician Name Role Phone Efeousmane Page Unavailable PROBLEMS Type Condition ICD9-CM Code OPF09-AI Code Onset Dates Condition S tatus SNOMED Code Notes Problem Coronary artery disease of n ative heart with stable angina pectoris, unspecified vessel or lesion type I25.118 Active 44 5935959 Problem Depression with anxiety F41.8 Active 32826155 6 Problem Macular degeneration, unspecified laterality, unspecif ied type H35.30 Active 047838434 Problem Myasthenia gravis G70.00 Active 64272385 Problem Atrial fibrillation, unspecified type I48.91 Ac tive 65310164 Problem Chronic obstructive pulmonary disease, unspecified COPD ty pe J44.9 Active 98614939 Problem Gastroesophageal reflux disease, esophagitis pre sence not specified K21.9 Active 509632432 ALLERGIES Allergen (clinical drug ingredient) Drug/Non Drug Allergy do cumented on EMR Reaction Allergy Type Onset Date Status strawberries Anaphylaxis Non Drug Allergy Activ e bees Anaphylaxis Non Drug Allergy Active ENCOUNTERS from 1945 to 2020-10-28 Encounter Location Date Provider Diagnosis [address] [place] [address] Oct Page Hendricks IMMUNIZATIONS No Information SOCIAL HISTORY Tobacco Use: Social History Observation Description Date Details (start date - stop date) Current Smoker Sex Assigned At : Social History Observation Description Sex Assigned At Unknown Language: Question Answer Notes Languages spoken: Romanian Sexual Hx: Question Answer Notes Had sex [...] every 8 hrs for 90 day(s) Active Vitamin B12 500 MCG 1 tablet Orally Once a day for 90 day(s) Active Artificial Tears 1 % 1 drop Ophthalmic four times daily Active Aspirin 81 MG 1 tablet Orally Once a day Active Sertraline HCl 100 MG 1 tablet Orally Once a day for 90 day(s) Active Freeze It 0.2-3.5 % 1 application as needed Externally Twice a day Active Cholecalciferol 1.25 MG (18214 UT) 1 capsule Orally once sunly for 90 day(s) Active Tums 500 MG 1 tablet Orally Once a day for 30 day(s) Active Nitrostat 0.4 MG as directed Sublingual every 5 min x 3 doses fo r chest pain Active Omeprazole 40 MG 1 capsule 30 minutes before morning meal Orally Once a day for 90 day(s) Active Oxygen 2LNC continuous nasal cannul a with portability DX: R09.2 oxygen saturation RA at rest: 88%, RA with exertion: 84% Jul, Active EpiPen 2-Jose Antonio 0.3 MG/0.3ML as directed Injection Active Torsemide 20 MG 1/2 tablet Orally every morning for 90 day(s) Active AREDS OTC 1 tab orally daily for 90 day(s) Active Clonazepam 0.5 MG 1 tablet at bedtime and may take an additional dose once a day as needed Orally Up to TID MDD #3 for 30 Days Active Entresto 24-26 MG 1/2 tablet Orally Twice a day for 90 days Active PROCEDURES No Information RESULTS No Results REASON FOR VISIT No Information MEDICAL (GENERAL) HISTORY Type Description Date Medical [...] Orally Twice a day for 90 days Cholecalciferol 1.25 MG (58742 UT) 1 capsule Orally once sun for 90 day(s) Omeprazole 40 MG 1 capsule 30 minutes before morning meal Orally Once a day for 90 day(s) Digoxin 125 MCG as directed Orally sun-sun and sunday for 30 day s Next Appt Details Provider Name:Page Hendricks, 11-15 03:30:00 PM, [place], [address], Provider Name:Page Hendricks 11-22 11:00:00 AM, [place], [address], Insurance Providers Payer Name Payer Address Payer Phone Insured Name Patient Relati onship to Insured Coverage Start Date Coverage End Date MEDICAID [employer] [address] [facility] [id number] JANEEN JEFFERSON self MEDICARE Part A and B [address] [facility] [phone] JANEEN JEFFERSON self
--- OUTSIDE RECORDS SUMMARY | 2020-11-17 15:12 | CCD ---
Author Author [facility] Organization [facility] Address Unknown Phone Unavailable Care Team Providers Care Safety Grooving Machine Operator Name Role Phone Efeousmane Page Unavailable PROBLEMS Type Condition ICD9-CM Code IZS28-IX Code Onset Dates Condition S tatus SNOMED Code Notes Problem Coronary artery disease of n ative heart with stable angina pectoris, unspecified vessel or lesion type I25.118 Active 44 8390478 Problem Depression with anxiety F41.8 Active 46012507 6 Problem Macular degeneration, unspecified laterality, unspecif ied type H35.30 Active 622552377 Problem Myasthenia gravis G70.00 Active 60629211 Problem Atrial fibrillation, unspecified type I48.91 Ac tive 28336750 Problem Chronic obstructive pulmonary disease, unspecified COPD ty pe J44.9 Active 85254893 Problem Gastroesophageal reflux disease, esophagitis pre sence not specified K21.9 Active 770507797 ALLERGIES Allergen (clinical drug ingredient) Drug/Non Drug Allergy do cumented on EMR Reaction Allergy Type Onset Date Status strawberries Anaphylaxis Non Drug Allergy Activ e bees Anaphylaxis Non Drug Allergy Active ENCOUNTERS from 1945 to 2020-10-25 Encounter Location Date Provider Diagnosis [address] [address] Oct Page Hendricks IMMUNIZATIONS No Information SOCIAL HISTORY Tobacco Use: Social History Observation Description Date Details (start date - stop date) Current Smoker Sex Assigned At : Social History Observation Description Sex Assigned At Unknown Language: Question Answer Notes Languages spoken: Papua [place] Guinean Sexual Hx: Question Answer Notes Had sex [...] Twice a day Active Cholecalciferol 1.25 MG (97605 UT) 1 capsule Orally once sun for [...] rally sun-sun and sunday for 90 day(s) Active Gabapentin [...] Active Digoxin 125 MCG as directed Orally sun-sun and sunday for 30 days Active Carbidopa-Levodopa [...] Information RESULTS No Results REASON FOR VISIT [facility] follow up MEDICAL (GENERAL) HISTORY Type Description Date Medical [...] sunday for 90 day(s) Cholecalciferol 1.25 MG (66163 UT) 1 capsule Orally once sun for 90 day(s) Vitamin B12 500 MCG [...] to TID MDD #3 for 30 Days Next Appt Details Provider Name:Pageashely Wilksousmane, 2019-01-02 01:15:00 PM, [address], [place], [address], Provider Name:Page Hendricks, 11-22 11:00:00 AM, [address], [place], [address], Insurance Providers Payer Name Payer Address Payer Phone Insured Name Patient Relati onship to Insured Coverage Start Date Coverage End Date MEDICAID [employer] [address] [facility] [address] JANEEN JEFFERSON self MEDICARE Part A and B [address] [facility] [phone] JANEEN JEFFERSON self
--- OUTSIDE RECORDS SUMMARY | 2020-11-17 15:12 | CCD ---
Author Author [facility] Organization [facility] Address Unknown Phone Unavailable Care Team Providers Care Orthopaedic Surgeon Name Role Phone Page Hendricks Unavailable PROBLEMS Type Condition ICD9-CM Code KQE68-GB Code Onset Dates Condition S tatus SNOMED Code Notes Problem Coronary artery disease of n ative heart with stable angina pectoris, unspecified vessel or lesion type I25.118 Active 44 3523458 Problem Depression with anxiety F41.8 Active 00301086 6 Problem Macular degeneration, unspecified laterality, unspecif ied type H35.30 Active 634973180 Problem Myasthenia gravis G70.00 Active 94609095 Problem Atrial fibrillation, unspecified type I48.91 Ac tive 30081380 Problem Chronic obstructive pulmonary disease, unspecified COPD ty pe J44.9 Active 37015790 Problem Gastroesophageal reflux disease, esophagitis pre sence not specified K21.9 Active 810486332 ALLERGIES Allergen (clinical drug ingredient) Drug/Non Drug Allergy do cumented on EMR Reaction Allergy Type Onset Date Status strawberries Anaphylaxis Non Drug Allergy Activ e bees Anaphylaxis Non Drug Allergy Active ENCOUNTERS from 1945 to 2020-10-21 Encounter Location Date Provider Diagnosis [address] [place] [address] Oct Page Hendricks Gastroesophageal reflux disease, esophag itis presence not specified K21.9 IMMUNIZATIONS No Information SOCIAL HISTORY Tobacco Use: Social History Observation Description Date Details (start date - stop date) Current Smoker Sex Assigned At : Social History Observation Description Sex Assigned At Unknown Language: Question Answer Notes Languages spoken: Libyan Sexual Hx: Question Answer Notes Had sex [...] Twice a day Active Cholecalciferol 1.25 MG (99226 UT) 1 capsule Orally once sun for [...] Treatment Notes Treatm ent Clinical Notes Oct, Gastroesophageal reflux dise ase, esophagitis presence not specified (ICD-10 - K21.9) PLAN OF TREATMENT Medication Medication Name Sig [...] sunday for 90 day(s) Cholecalciferol 1.25 MG (99862 UT) 1 capsule Orally once sunly for [...] for 30 Days Next Appt Details Provider Name:Page Hendricks, 2019-11 10:30:00 AM, [facility], [address], Provider Name:Page Hendricks, 11-22 11:00:00 AM, [address] [place], [address], Insurance Providers Payer Name Payer Address Payer Phone Insured Name Patient Relati onship to Insured Coverage Start Date Coverage End Date MEDICARE Part A and B [address] [facility] [phone] JANEEN JEFFERSON self MEDICAID [employer] [address] [facility] [id number] JANEEN JEFFERSON self
--- OUTSIDE RECORDS SUMMARY | 2020-11-17 15:12 | CCD ---
Author Author [facility] Organization [facility] Address Unknown Phone Unavailable Care Team Providers Care Production Posting Clerk Name Role Phone Efeousmane Page Unavailable PROBLEMS Type Condition ICD9-CM Code [id number] Code Onset Dates Condition S tatus SNOMED Code Notes Problem Coronary artery disease of n ative heart with stable angina pectoris, unspecified vessel or lesion type I25.118 Active 44 0091999 Problem Depression with anxiety F41.8 Active 59914883 6 Problem Macular degeneration, unspecified laterality, unspecif ied type H35.30 Active 256542737 Problem Myasthenia gravis G70.00 Active 10750147 Problem Atrial fibrillation, unspecified type I48.91 Ac tive 33835428 Problem Chronic obstructive pulmonary disease, unspecified COPD ty pe J44.9 Active 27536152 Problem Gastroesophageal reflux disease, esophagitis pre sence not specified K21.9 Active 791380816 ALLERGIES Allergen (clinical drug ingredient) Drug/Non Drug Allergy do cumented on EMR Reaction Allergy Type Onset Date Status strawberries Anaphylaxis Non Drug Allergy Activ e bees Anaphylaxis Non Drug Allergy Active ENCOUNTERS from 1945 to 2020-10-08 Encounter Location Date Provider Diagnosis [address] [place] [address] Oct Page Hendricks IMMUNIZATIONS No Information SOCIAL HISTORY Tobacco Use: Social History Observation Description Date Details (start date - stop date) Current Smoker Sex Assigned At : Social History Observation Description Sex Assigned At Unknown Language: Question Answer Notes Languages spoken: Trinidadian Sexual Hx: Question Answer Notes Had sex [...] Notes Start Da te End Date Status EpiPen 2-Jose Antonio 0.3 MG/0.3ML as directed Injection Active Questran 4 GM/DOSE 1 scoop Orally bid Not-Taking DuoNeb 2.5mg-0.5mg/3ml nebulizer four times daily as needed Active Oxygen 2LNC continuous nasal cannul a with portability DX: R09.2 oxygen saturation RA at rest: 88%, RA with exertion: 84% 30 Jul, 2020 Active Nitrostat 0.4 MG as directed Sublingual every 5 min x 3 doses fo r chest pain Active Gabapentin 300 MG 2 capsule Orally Once a day Active Torsemide 20 MG 1/2 tablet Orally every morning Active AREDS OTC 1 tab po daily Active Entresto 24-26 MG 1/2 tablet Orally Twice a day Active Omeprazole 40 MG 1 capsule 30 minutes before morning meal Orally On a day Active Artificial Tears 1 % 1 drop Ophthalmic four times daily Active Freeze It 0.2-3.5 % 1 application as needed Externally Twice a day Active Clonazepam 0.5 MG 1 tablet at bedtime and may take an additional dose once a day as needed Orally Once a day Acti ve Potassium Chloride Lavern ER 20 MEQ 1 tablet with food Orally sun-sun and sunday Active Tylenol 8 Hour Arthritis Pain 650 MG 2 tablets as needed Orally jasbir ry 8 hrs Active Wellbutrin SR 100 MG 1 tablet in the morning Orally Once a day Active Carbidopa-Levodopa 25-100 MG 1 tablet Orally FOUR TIMES a day Active Sertraline HCl 100 MG 1 tablet Orally Once a day Active Tums 500 MG 1 tablet Orally Once a day for 30 day(s) Not-Taking Cholecalciferol 1.25 MG (93658 UT) 1 capsule Orally once sunly for 90 day(s) Active L-Methylfolate 15 MG 1 tablet Orally Once a day for 30 day(s) Active Icy Hot Back 5 % 1 patch as needed Externally Three times a day Active Digoxin 125 MCG as directed Orally sun-sun and sunday for 30 days Active Ventolin HFA 108 (90 Base) MCG/ACT 1 puff as needed Inhalation ever y 4 hrs Active Crestor 10 MG 1 tablet Orally Once a day for 90 day(s) Aug, Unknown Vitamin B12 500 MCG 1 tablet Orally Once a day for 30 day(s) Active Aspirin 81 MG 1 tablet Orally Once a day Active PROCEDURES No Information RESULTS No Results REASON FOR VISIT [facility] D/C 10/06 MEDICAL (GENERAL) HISTORY Type Description Date Medical [...] Treatment Notes Treatm ent Clinical Notes Oct, Other Discussion with patient, hospital follow up appt confirmed, medication list reviewed and verified, pt reports that she is unsure if she is taking the Crestor 10 mg, pt reports that she had just filled her medications in her pill box. Poppy Pruett RN 10/06/2020 1109 PLAN OF TREATMENT Next Appt Details Provider Name:Page Hendricks, 2019-11 10:30:00 AM, [address] [place], [address], Provider Name:Page Hendricks, 11-22 11:00:00 AM, [place], [address], Insurance Providers Payer Name Payer Address Payer Phone Insured Name Patient Relati onship to Insured Coverage Start Date Coverage End Date MEDICARE Part A and B [address] [facility] [phone] JANEEN JEFFERSON MEDICAID [employer] [address] [facility] [id number] JANEEN JEFFERSON
--- OUTSIDE RECORDS SUMMARY | 2020-11-17 15:12 | CCD ---
Author Author [facility] Organization [facility] Address Unknown Phone Unavailable Care Team Providers Care Dormitory Counselor Name Role Phone Page Hendricks Unavailable PROBLEMS Type Condition ICD9-CM Code NDV93-WR Code Onset Dates Condition S tatus SNOMED Code Notes Problem Coronary artery disease of n ative heart with stable angina pectoris, unspecified vessel or lesion type I25.118 Active 44 6625044 Problem Depression with anxiety F41.8 Active 41759072 6 Problem Macular degeneration, unspecified laterality, unspecif ied type H35.30 Active 800947911 Problem Myasthenia gravis G70.00 Active 46175969 Problem Atrial fibrillation, unspecified type I48.91 Ac tive 21313604 Problem Chronic obstructive pulmonary disease, unspecified COPD ty pe J44.9 Active 76714663 Problem Gastroesophageal reflux disease, esophagitis pre sence not specified K21.9 Active 884897147 ALLERGIES Allergen (clinical drug ingredient) Drug/Non Drug Allergy do cumented on EMR Reaction Allergy Type Onset Date Status strawberries Anaphylaxis Non Drug Allergy Activ e bees Anaphylaxis Non Drug Allergy Active ENCOUNTERS from 1945 to 2020-10-28 Encounter Location Date Provider Diagnosis [address] [address] Oct Page Efeousmane Coronary artery disease of [place] heart with stable angina pectoris, unspecified vessel or lesion type I25.118 ; Atrial fibrillation, unspecified type I48.91 and Gastroesophageal reflux disease, esophagitis presence not specified K21.9 IMMUNIZATIONS No Information SOCIAL HISTORY Tobacco Use: Social History Observation Description Date Details (start date - stop date) Current Smoker Sex Assigned At : Social History Observation Description Sex Assigned At Unknown Language: Question Answer Notes Languages spoken: Bengali Sexual Hx: Question Answer Notes Had sex [...] sun-sun and sunday for 30 days Active Potassium [...] morning Orally Once a day f or 90 day(s) Active Tylenol 8 Hour Arthritis [...] Twice a day Active Cholecalciferol 1.25 MG (35723 UT) 1 capsule Orally once mon thly for 90 day(s) Active Tums 500 MG [...] with exertion: 84% 30 Jul, 2020 Active EpiPen 2-Jose Antonio 0.3 MG/0.3ML as [...] Information RESULTS No Results REASON FOR VISIT Refill - Vit B12, MEDICAL (GENERAL) HISTORY Type Description Date Medical [...] Treatment Notes Treatm ent Clinical Notes Oct, Coronary artery disease of n ative heart with stable angina pectoris, unspecified vessel or lesion type (ICD-10 - I25.118) Oct, Atrial fibrillation, unspecified type (ICD-10 - I48.91) Oct, Gastroesophageal reflux dise ase, esophagitis presence not specified (ICD-10 - K21.9) PLAN OF TREATMENT Medication Medication Name Sig Start Date Stop Date Vitamin B12 500 MCG 1 tablet Orally Once a day for 90 day(s) Entresto 24-26 MG 1/2 tablet Orally Twice a day for 90 days Cholecalciferol 1.25 MG (38442 UT) 1 capsule Orally once mon thly for 90 day(s) Omeprazole 40 MG 1 capsule 30 minutes before morning meal Orally Once a day for 90 day(s) Digoxin 125 MCG as directed Orally sun-sun and sunday for 30 day s Next Appt Details Provider Name:Page D Ruthie, - 03:30:00 PM, [place], [address], Provider Name:Page Mayra Ruthie, - 11:00:00 AM, [place], [address], Insurance Providers Payer Name Payer Address Payer Phone Insured Name Patient Relati onship to Insured Coverage Start Date Coverage End Date MEDICARE Part A and B [address] [facility] [id number] JANEEN JEFFERSON self MEDICAID [facility] [address] [facility] [id number] JANEEN JEFFERSON self
--- OUTSIDE RECORDS SUMMARY | 2020-11-17 15:12 | CCD ---
Author Author [facility] Organization [facility] Address Unknown Phone Unavailable Care Team Providers Care Program Manufacturing Leader Name Role Phone Efeousmane Page Unavailable PROBLEMS Type Condition ICD9-CM Code CCA62-DW Code Onset Dates Condition S tatus SNOMED Code Notes Problem Coronary artery disease of n ative heart with stable angina pectoris, unspecified vessel or lesion type I25.118 Active 44 3898447 Problem Depression with anxiety F41.8 Active 99156720 6 Problem Macular degeneration, unspecified laterality, unspecif ied type H35.30 Active 788189314 Problem Myasthenia gravis G70.00 Active 49631614 Problem Atrial fibrillation, unspecified type I48.91 Ac tive 79606657 Problem Chronic obstructive pulmonary disease, unspecified COPD ty pe J44.9 Active 38966389 Problem Gastroesophageal reflux disease, esophagitis pre sence not specified K21.9 Active 808493875 ALLERGIES Allergen (clinical drug ingredient) Drug/Non Drug Allergy do cumented on EMR Reaction Allergy Type Onset Date Status strawberries Anaphylaxis Non Drug Allergy Activ e bees Anaphylaxis Non Drug Allergy Active ENCOUNTERS from 1945 to 2020-10-19 Encounter Location Date Provider Diagnosis [address] [address] Oct Page Hendricks IMMUNIZATIONS No Information SOCIAL HISTORY Tobacco Use: Social History Observation Description Date Details (start date - stop date) Current Smoker Sex Assigned At : Social History Observation Description Sex Assigned At Unknown Language: Question Answer Notes Languages spoken: Citizen Of [place] Sexual Hx: Question Answer Notes Had sex [...] Notes Start Da te End Date Status AREDS OTC 1 tab orally daily for 90 day(s) Active Oxygen 2LNC continuous nasal cannul a with portability DX: R09.2 oxygen saturation RA at rest: 88%, RA with exertion: 84% 30 Jul, 2020 Active L-Methylfolate 15 MG 1 tablet Orally Once a day for 30 day(s) Active Tums 500 MG 1 tablet Orally Once a day for 30 day(s) Not-Taking Cholecalciferol 1.25 MG (46967 UT) 1 capsule Orally once sun for 90 day(s) Active Gabapentin 300 MG 2 capsule Orally Once a day Active Clonazepam 0.5 MG 1 tablet at bedtime and may take an additional dose once a day as needed Orally Up to TID MDD #3 for 30 Days Active Questran 4 GM/DOSE 1 scoop Orally bid Not-Taking DuoNeb 2.5mg-0.5mg/3ml nebulizer four times daily as needed Active Omeprazole 40 MG 1 capsule 30 minutes before morning meal Orally On a day Active Freeze It 0.2-3.5 % 1 application as needed Externally Twice a day Active Icy Hot Back 5 % 1 patch as needed Externally Three times a day Active Sertraline HCl 100 MG 1 tablet Orally Once a day for 90 day(s) Active Carbidopa-Levodopa 25-100 MG 1 tablet Orally FOUR TIMES a day Active Nitrostat 0.4 MG as directed Sublingual every 5 min x 3 doses fo r chest pain Active Crestor 10 MG 1 tablet Orally Once a day for 90 day(s) Aug, Unknown Artificial Tears 1 % 1 drop Ophthalmic four times daily Active EpiPen 2-Jose Antonio 0.3 MG/0.3ML as directed Injection Active Entresto 24-26 MG 1/2 tablet Orally Twice a day Active Wellbutrin SR 100 MG 1 tablet in the morning Orally Once a day or day(s) Active Potassium Chloride Lavern ER 20 MEQ 1 tablet with food Orally sun-sun and sunday Active Digoxin 125 MCG as directed Orally sun-sun and sunday for 30 days Active Torsemide 20 MG 1/2 tablet Orally every morning for 90 day(s) Active Ventolin HFA 108 (90 Base) MCG/ACT 1 puff as needed Inhalation ever y 4 hrs Active Tylenol 8 Hour Arthritis Pain 650 MG 2 tablets as need ed Orally every 8 hrs for 90 day(s) Active Vitamin B12 500 MCG 1 tablet Orally Once a day for 30 day(s) Active Aspirin 81 MG 1 tablet Orally Once a day Active PROCEDURES No Information RESULTS No Results REASON FOR VISIT abd pain, diarrhea MEDICAL (GENERAL) HISTORY Type Description Date Medical [...] Once a day f or 90 day(s) Sertraline HCl 100 MG 1 tablet Orally Once a day for 90 day(s) Clonazepam 0.5 MG 1 tablet at bedtime and may take an additional dose once a day as needed Orally Up to TID MDD #3 for 30 Days AREDS OTC 1 tab orally daily for 90 day(s) Cholecalciferol 1.25 MG (87418 UT) 1 capsule Orally once sun for 90 day(s) Next Appt Details Provider Name:Page Hendricks, 2019-11 10:30:00 AM, [address], [place], [address], Provider Name:Page Hendricks, 11-22 11:00:00 AM, [address], [place], [address], Insurance Providers Payer Name Payer Address Payer Phone Insured Name Patient Relati onship to Insured Coverage Start Date Coverage End Date MEDICARE Part A and B [address] [facility] [id number] JANEEN JEFFERSON self MEDICAID [employer] [address] [facility] [address] JANEEN JEFFERSON self
--- OUTSIDE RECORDS SUMMARY | 2020-11-17 15:12 | CCD ---
Author Author [facility] Organization [facility] Address Unknown Phone Unavailable Care Team Providers Care Explosive Operator Bomb Name Role Phone Page Hendricks Unavailable PROBLEMS Type Condition ICD9-CM Code [id number] Code Onset Dates Condition S tatus SNOMED Code Notes Problem Coronary artery disease of n ative heart with stable angina pectoris, unspecified vessel or lesion type I25.118 Active 44 0391649 Problem Depression with anxiety F41.8 Active 36948712 6 Problem Macular degeneration, unspecified laterality, unspecif ied type H35.30 Active 081454407 Problem Myasthenia gravis G70.00 Active 57231933 Problem Atrial fibrillation, unspecified type I48.91 Ac tive 22323360 Problem Chronic obstructive pulmonary disease, unspecified COPD ty pe J44.9 Active 81426870 Problem Gastroesophageal reflux disease, esophagitis pre sence not specified K21.9 Active 901026088 ALLERGIES Allergen (clinical drug ingredient) Drug/Non Drug Allergy do cumented on EMR Reaction Allergy Type Onset Date Status strawberries Anaphylaxis Non Drug Allergy Activ e bees Anaphylaxis Non Drug Allergy Active ENCOUNTERS from 1945 to 2020-10-25 Encounter Location Date Provider Diagnosis [address] [place] [address] Oct Page Hendricks Dysuria R30.0 IMMUNIZATIONS No Information SOCIAL HISTORY Tobacco Use: Social History Observation Description Date Details (start date - stop date) Current Smoker Sex Assigned At : Social History Observation Description Sex Assigned At Unknown Language: Question Answer Notes Languages spoken: Kiswahili Sexual Hx: Question Answer Notes Had sex [...] Twice a day Active Cholecalciferol 1.25 MG (21394 UT) 1 capsule Orally once sun for 90 day(s) Active Questran 4 GM/DOSE 1 scoop Orally bid Not-Taking AREDS OTC 1 tab orally daily for 90 day(s) Active Oxygen 2LNC continuous nasal cannul a with portability DX: R09.2 oxygen saturation RA at rest: 88%, RA with exertion: 84% 30 Jul, 2020 Active Potassium Chloride Alvern ER 20 MEQ 1 tablet with food [...] Information RESULTS No Results REASON FOR VISIT UA and culture order MEDICAL (GENERAL) HISTORY Type Description Date Medical [...] sunday for 90 day(s) Cholecalciferol 1.25 MG (72817 UT) 1 capsule Orally once sunly for [...] Test Test Name Order Date UA URINALYSIS 20201020 URINE CULTURE 20201020 Next Appt Details Provider Name:Page Hendricks, 2019-11 01:15:00 PM, [address] [place], [address], Provider Name:Page Mayra Wilksousmane, 11-22 11:00:00 AM, [address] [place], [address], Insurance Providers Payer Name Payer Address Payer Phone Insured Name Patient Relati onship to Insured Coverage Start Date Coverage End Date MEDICARE Part A and B [address] [facility] [phone] JANEEN JEFFERSON self MEDICAID [employer] [address] [facility] [address] JANEEN JEFFERSON self
--- OUTSIDE RECORDS SUMMARY | 2020-11-17 15:12 | CCD ---
Author Author [facility] Organization [facility] Address Unknown Phone Unavailable Care Team Providers Care Dental Laboratory Manager Name Role Phone Page Hendricks Unavailable PROBLEMS Type Condition ICD9-CM Code NOG08-PH Code Onset Dates Condition S tatus SNOMED Code Notes Problem Coronary artery disease of n ative heart with stable angina pectoris, unspecified vessel or lesion type I25.118 Active 44 4629707 Problem Depression with anxiety F41.8 Active 98909467 6 Problem Macular degeneration, unspecified laterality, unspecif ied type H35.30 Active 282751865 Problem Myasthenia gravis G70.00 Active 50313237 Problem Atrial fibrillation, unspecified type I48.91 Ac tive 79126848 Problem Chronic obstructive pulmonary disease, unspecified COPD ty pe J44.9 Active 88119032 Problem Gastroesophageal reflux disease, esophagitis pre sence not specified K21.9 Active 860349153 ALLERGIES Allergen (clinical drug ingredient) Drug/Non Drug Allergy do cumented on EMR Reaction Allergy Type Onset Date Status strawberries Anaphylaxis Non Drug Allergy Activ e bees Anaphylaxis Non Drug Allergy Active ENCOUNTERS from 1945 to 2020-10-15 Encounter Location Date Provider Diagnosis [address] [address] Oct Pgae Hendricks Depression with anxiety F41.8 and [place] ry artery disease of [place] heart with stable angina pectoris, unspecified vessel or lesion type I25.118 IMMUNIZATIONS No Information SOCIAL HISTORY Tobacco Use: Social History Observation Description Date Details (start date - stop date) Current Smoker Sex Assigned At : Social History Observation Description Sex Assigned At Unknown Language: Question Answer Notes Languages spoken: [place] Sexual Hx: Question Answer Notes Had sex [...] Counseled the patient on smoking cessation, education [facility] ed 08/04/2020 REASON FOR REFERRAL No Information [...] for 30 day(s) Not-Taking Cholecalciferol 1.25 MG (41956 UT) 1 capsule Orally once sun for [...] Once a day f or day(s) Active Potassium Chloride Lavern ER 20 MEQ 1 tablet with food Orally and sunday Active Digoxin 125 MCG as directed Orally and sunday for 30 days Active Torsemide [...] Treatment Notes Treatm ent Clinical Notes Oct, Depression with anxiety (ICD-10 - F41.8) Oct, Coronary artery disease of n ative heart with stable angina pectoris, unspecified vessel or lesion type (ICD-10 - I25.118) PLAN OF TREATMENT Medication Medication Name Sig Start Date Stop Date Torsemide 20 MG 1/2 tablet Orally every morning for 90 day(s) Tylenol 8 Hour Arthritis Pain 650 MG 2 tablets as need ed Orally every 8 hrs for 90 day(s) Wellbutrin SR 100 MG 1 tablet in the morning Orally Once a day f or day(s) Sertraline HCl 100 MG 1 tablet Orally Once a day for 90 day(s) Clonazepam 0.5 MG 1 tablet at bedtime and may take an additional dose once a day as needed Orally Up to TID MDD #3 for 30 Days AREDS OTC 1 tab orally daily for 90 day(s) Cholecalciferol 1.25 MG (48314 UT) 1 capsule Orally once mon thly for 90 day(s) Next Appt Details Provider Name:Page Hendricks, 2019-11 2 10:30:00 AM, [address], [address], Provider Name:Page Hendricks, 11-22 11:00:00 AM, [address] [place], [address], Insurance Providers Payer Name Payer Address Payer Phone Insured Name Patient Relati onship to Insured Coverage Start Date Coverage End Date MEDICARE Part A and B [address] [facility] [id number] JANEEN JEFFERSON self MEDICAID [employer] [address] [facility] [id number] JANEEN JEFFERSON self
--- OUTSIDE RECORDS SUMMARY | 2020-11-17 15:13 | CCD ---
Author Author [facility] Organization [facility] Address Unknown Phone Unavailable Care Team Providers Care Property Specialist Name Role Phone Breezy Delgado Unavailable PROBLEMS Type Condition ICD9-CM Code CSP47-OX Code Onset Dates Condition S tatus SNOMED Code Notes Problem Coronary artery disease of n ative heart with stable angina pectoris, unspecified vessel or lesion type I25.118 Active 44 2272620 Problem Depression with anxiety F41.8 Active 90364536 6 Problem Macular degeneration, unspecified laterality, unspecif ied type H35.30 Active 283511368 Problem Myasthenia gravis G70.00 Active 49028078 Problem Atrial fibrillation, unspecified type I48.91 Ac tive 65568654 Problem Chronic obstructive pulmonary disease, unspecified COPD ty pe J44.9 Active 46463314 Problem Gastroesophageal reflux disease, esophagitis pre sence not specified K21.9 Active 884330588 ALLERGIES Allergen (clinical drug ingredient) Drug/Non Drug Allergy do cumented on EMR Reaction Allergy Type Onset Date Status strawberries Anaphylaxis Non Drug Allergy Activ e bees Anaphylaxis Non Drug Allergy Active ENCOUNTERS from 1945 to 2020-09-13 Encounter Location Date Provider Diagnosis [address] [place] [address] Sep Breezy Delgado Urinary tract infection, site not specif ied N39.0 and Hematuria, unspecified R31.9 IMMUNIZATIONS No Information SOCIAL HISTORY Tobacco Use: Social History Observation Description Date Details (start date - stop date) Current Smoker Sex Assigned At : Social History Observation Description Sex Assigned At Unknown Language: Question Answer Notes Languages spoken: [place] Sexual Hx: Question Answer Notes Had [...] REASON FOR REFERRAL No Information VITAL SIGNS Weight 155 lbs Sep, Height 5'4" in Sep, BMI 26.60 kg/m2 Sep, Heart Rate 86 /min Sep, Respiratory Rate 20 /min Sep, Temperature 99.1 degrees Fahrenheit Sep, Oximetry 95 Sep, Blood pressure systolic 123 mm Hg Sep, Blood pressure diastolic 72 mm Hg Sep, MEDICATIONS Medication SIG (Take, Route, Frequency, Duration) Start Date En d Date Status Ventolin HFA 108 (90 Base) MCG/ACT 1 puff as needed Inhalation ever y 4 hrs Active Aspirin 81 MG 1 tablet Orally Once a day Active Cipro 500 MG 1 tablet Orally every 12 hrs for 5 day(s) Sep, Active Crestor 10 MG 1 tablet Orally Once a day for 90 day(s) Aug, Active Clonazepam 0.5 MG 1 tablet at bedtime Orally B ID and may have an additional dose prn Active Oxygen 2LNC continuous nasal cannul a with portability DX: R09.2 oxygen saturation RA at rest: 88%, RA with exertion: 84% 30 Jul, 2020 Active Vitamin B12 500 MCG 1 tablet Orally Once a day for 30 day(s) Active Cholecalciferol 1.25 MG (31924 UT) 1 capsule Orally once sun for 90 day(s) Active EpiPen 2-Jose Antonio 0.3 MG/0.3ML as directed Injection Active Wellbutrin SR 100 MG 1 tablet in the morning Orally Once a day Active Freeze It 0.2-3.5 % 1 application as needed Externally Twice a day Active Omeprazole 40 MG 1 capsule 30 minutes before morning meal Orally On a day Active L-Methylfolate 15 MG 1 tablet Orally Once a day for 30 day(s) Active Tums 500 MG 1 tablet Orally Once a day for 30 day(s) Active Digoxin 125 MCG as directed Orally sun-sun and sunday Active Artificial Tears 1 % 1 drop Ophthalmic four times daily Active AREDS OTC Active Icy Hot Back 5 % 1 patch as needed Externally Three times a day Active Sertraline HCl 100 MG 1 tablet Orally Once a day Active DuoNeb 2.5mg-0.5mg/3ml nebulizer four times daily as needed Active Questran 4 GM/DOSE 1 scoop Orally bid Act wiliam Cipro 250 MG 1 tablet Orally every 12 hrs for 5 days Sep, Active Potassium Chloride Lavern ER 20 MEQ 1 tablet with food Orally sun-sun and sunday Active Tylenol 8 Hour Arthritis Pain 650 MG 2 tablets as needed Orally jasbir ry 8 hrs Active Nitrostat 0.4 MG as directed Sublingual A ctive Entresto 24-26 MG 1/2 tablet Orally Twice a day Active Torsemide 20 MG 1/2 tablet Orally every morning Active Gabapentin 300 MG 2 capsule Orally Once a day Active PROCEDURES No Information RESULTS Component Value Reference Range Urinalysis, no micro Reviewed date:09/07/2020 08:17:45 Interpretation: Performing Lab:[facility] ,[facility] Spec gravity 1.020 1.002 - 1.035 pH 5 5.0 - 9.0 Leukocyte 2+ Negative - Nitrate POS Negative - Protein 1+ Negative - mg/dl Glucose neg Negative - mg/dl Ketones neg Negative - mg/dl Urobili neg Normal - mg/dl Bilirubin neg Negative - Blood TRACE Negative - Internal QC Acceptable (Y/N) yes URINE CULTURE Reviewed date:09/09/2020 08:12:14 Interpretation:positive for Klebsiella Performing Lab:[facility], [facility] [address] [address] , ,[facility] REASON FOR VISIT uti sx MEDICAL (GENERAL) HISTORY Type Description Date Medical [...] STATUS No Information ASSESSMENTS Encounter Date Diagnosis Notes Sep, Hematuria, unspecified (ICD-10 - R31.9) Sep, Urinary tract infection, site not specif ied (ICD-10 - N39.0) PLAN OF TREATMENT Medication Medication Name Sig Start Date Stop Date Cipro 500 MG 1 tablet Orally every 12 hrs for 5 day(s) Sep Cipro 250 MG 1 tablet Orally every 12 hrs for 5 days Sep, Cholecalciferol 1.25 MG (87572 UT) 1 capsule Orally once mon thly for 90 day(s) Treatment Notes Assessment Notes Clinical Notes Urinary tract infection, site not specified Based on y our symptoms and the findings of the urinalysis that was done while here at urgent care, you most likely have a urinary tract infection. This is caused by bacteria getting into the urinary tract system, which is usually a sterile system. Please take the antibiotic as directed at this time until the antibiotic course has been completed unless you are directed to do otherwise by a healthcare provider. There is a chance that the antibiotic will not help with this type of infection if the bacteria is resistant to the antibiotic. We will send your urine off for culture to find out what kind of bacteria is causing the infection what will work best to treat it. If a change in antibiotic is required we will contact you in 2-3 days once we have the culture report and let you know. If symptoms per sist or are worsening over the next 2-3 days, please contact us to find out the results of the urine culture. Rest and drink clear fluids throughout the day. Next Appt Details 2 - 3 Days unless improving Reason: Provider Name:Page Hendricks, 2019-11 10:30:00 AM, [address] [place], [address], Provider Name:Page Hendricks, 11-22 11:00:00 AM, [place], [address], Insurance Providers Payer Name Payer Address Payer Phone Insured Name Patient Relati onship to Insured Coverage Start Date Coverage End Date MEDICAID [employer] [address] [facility] [id number] JANEEN JEFFERSON MEDICARE Part A and B [address] [facility] [address] [phone] JANEEN JEFFERSON self
--- OUTSIDE RECORDS SUMMARY | 2020-11-17 15:13 | CCD ---
Author Author [facility] Organization [facility] Address Unknown Phone Unavailable Care Team Providers Care Outside Deliverer Name Role Phone Efeousmane Page Unavailable PROBLEMS Type Condition ICD9-CM Code TGE30-DC Code Onset Dates Condition S tatus SNOMED Code Notes Problem Coronary artery disease of n ative heart with stable angina pectoris, unspecified vessel or lesion type I25.118 Active 44 8607751 Problem Depression with anxiety F41.8 Active 19040524 6 Problem Macular degeneration, unspecified laterality, unspecif ied type H35.30 Active 736378529 Problem Myasthenia gravis G70.00 Active 43618227 Problem Atrial fibrillation, unspecified type I48.91 Ac tive 90636757 Problem Chronic obstructive pulmonary disease, unspecified COPD ty pe J44.9 Active 65259229 Problem Gastroesophageal reflux disease, esophagitis pre sence not specified K21.9 Active 375161226 ALLERGIES Allergen (clinical drug ingredient) Drug/Non Drug Allergy do cumented on EMR Reaction Allergy Type Onset Date Status strawberries Anaphylaxis Non Drug Allergy Activ e bees Anaphylaxis Non Drug Allergy Active ENCOUNTERS from 1945 to 2020-09-16 Encounter Location Date Provider Diagnosis [address] [place] [address] Sep Page Hendricks IMMUNIZATIONS No Information SOCIAL HISTORY Tobacco Use: Social History Observation Description Date Details (start date - stop date) Current Smoker Sex Assigned At : Social History Observation Description Sex Assigned At Unknown Language: Question Answer Notes Languages spoken: Burundian Sexual Hx: Question Answer Notes Had sex [...] Duration) Start Date En d Date Status Icy Hot Back 5 % 1 patch as needed Externally Three times a day Active Ventolin HFA 108 (90 Base) MCG/ACT 1 puff as needed Inhalation ever y 4 hrs Active Cholecalciferol 1.25 MG (75205 UT) 1 capsule Orally once mon ly for 90 day(s) Active Tylenol 8 Hour Arthritis Pain 650 MG 2 tablets as needed Orally jasbir ry 8 hrs Active Cipro 500 MG 1 tablet Orally every 12 hrs for 5 day(s) Sep, Not-Taking Oxygen 2LNC continuous nasal cannul a with portability DX: R09.2 oxygen saturation RA at rest: 88%, RA with exertion: 84% 30 Jul, 2020 Active L-Methylfolate 15 MG 1 tablet Orally Once a day for 30 day(s) Active Vitamin B12 500 MCG 1 tablet Orally Once a day for 30 day(s) Active Crestor 10 MG 1 tablet Orally Once a day for 90 day(s) Aug, Active Potassium Chloride Lavern ER 20 MEQ 1 tablet with food Orally sun-sun and sunday Active Aspirin 81 MG 1 tablet Orally Once a day Active Omeprazole 40 MG 1 capsule 30 minutes before morning meal Orally On a day Active EpiPen 2-Jose Antonio 0.3 MG/0.3ML as directed Injection Active Nitrostat 0.4 MG as directed Sublingual A ctive Cipro 250 MG 1 tablet Orally every 12 hrs for 5 days Sep, Not-Taking Questran 4 GM/DOSE 1 scoop Orally bid Act wiliam Artificial Tears 1 % 1 drop Ophthalmic four times daily Active Freeze It 0.2-3.5 % 1 application as needed Externally Twice a day Active AREDS OTC Active Tums 500 MG 1 tablet Orally Once a day for 30 day(s) Active Torsemide 20 MG 1/2 tablet Orally every morning Active Gabapentin 300 MG 2 capsule Orally Once a day Active Digoxin 125 MCG as directed Orally sun-sun and sunday Active Entresto 24-26 MG 1/2 tablet Orally Twice a day Active Sertraline HCl 100 MG 1 tablet Orally Once a day Active Wellbutrin SR 100 MG 1 tablet in the morning Orally Once a day Active DuoNeb 2.5mg-0.5mg/3ml nebulizer four times daily as needed Active Clonazepam 0.5 MG 1 tablet at bedtime and may take an additional dose twice a day as needed Orally TID MDD 3 for 30 Days Active PROCEDURES No Information RESULTS No Results REASON FOR VISIT script MEDICAL (GENERAL) HISTORY Type Description Date Medical [...] Information ASSESSMENTS No Information PLAN OF TREATMENT Next Appt Details Provider Name:Page Hendricks, 11-22 11:00:00 AM, [address] [place] [address], [address], Insurance Providers Payer Name Payer Address Payer Phone Insured Name Patient Relati onship to Insured Coverage Start Date Coverage End Date MEDICARE Part A and B [address] [facility] [phone] JANEEN EJFFERSON self MEDICAID [employer] [address] [facility] [id number] JANEEN JEFFERSON self
--- OUTSIDE RECORDS SUMMARY | 2020-11-17 15:13 | CCD ---
Author Author [facility] Organization [facility] Address Unknown Phone Unavailable Care Team Providers Care Felt Hat Steamer Name Role Phone Page Hendricks Unavailable PROBLEMS Type Condition ICD9-CM Code [id number] Code Onset Dates Condition S tatus SNOMED Code Notes Problem Coronary artery disease of n ative heart with stable angina pectoris, unspecified vessel or lesion type I25.118 Active 44 9494191 Problem Depression with anxiety F41.8 Active 64511892 6 Problem Macular degeneration, unspecified laterality, unspecif ied type H35.30 Active 750299273 Problem Myasthenia gravis G70.00 Active 07320428 Problem Atrial fibrillation, unspecified type I48.91 Ac tive 96873849 Problem Chronic obstructive pulmonary disease, unspecified COPD ty pe J44.9 Active 32389013 Problem Gastroesophageal reflux disease, esophagitis pre sence not specified K21.9 Active 802723234 ALLERGIES Allergen (clinical drug ingredient) Drug/Non Drug Allergy do cumented on EMR Reaction Allergy Type Onset Date Status strawberries Anaphylaxis Non Drug Allergy Activ e bees Anaphylaxis Non Drug Allergy Active ENCOUNTERS from 1945 to 2020-09-21 Encounter Location Date Provider Diagnosis [facility] [place] [address] Sep Page Hendricks Acute pain of right knee M25.561 ; Edema of left lower extremity R60.0 and Fall, subsequent encounter W19.XXXD IMMUNIZATIONS No Information SOCIAL HISTORY Tobacco Use: Social History Observation Description Date Details (start date - stop date) Current Smoker Sex Assigned At : Social History Observation Description Sex Assigned At Unknown Language: Question Answer Notes Languages spoken: Kyrgyz Sexual Hx: Question Answer Notes Had sex [...] FOR REFERRAL No Information VITAL SIGNS Weight 156.12 lbs Sep, Height 5'4" in Sep, BMI 26.80 kg/m2 Sep, Heart Rate 88 /min Sep, Respiratory Rate 16 /min Sep, Temperature 98.0 degrees Fahrenheit Sep, Oximetry 98 Sep, Blood pressure systolic 128 mm Hg Sep, Blood pressure diastolic 80 mm Hg Sep, MEDICATIONS Medication SIG (Take, Route, Frequency, Duration) Notes Start Da te End Date Status Icy Hot Back 5 % 1 patch as needed Externally Three times a day Active Ventolin HFA 108 (90 Base) MCG/ACT 1 puff as needed Inhalation ever y 4 hrs Active Cholecalciferol 1.25 MG (91648 UT) 1 capsule Orally once sunly for 90 day(s) Active Tylenol 8 Hour [...] Active Nitrostat 0.4 MG as directed Sublingual Active Cipro 250 MG 1 tablet Orally every 12 hrs for 5 days 2019 Not-Taking Questran 4 GM/DOSE 1 scoop Orally bid Active Artificial Tears 1 % 1 drop [...] 30 Days Active PROCEDURES No Information RESULTS Component Value Reference Range ЕКАТЕРИНА TIBIA/FIBIA AP/LAT Reviewed date:09/20/2020 07:12:58 Interpretation: Performing Lab:[facility],[address]], ,[place] [address] REASON FOR VISIT ongoing knee issue MEDICAL (GENERAL) HISTORY Type Description Date Medical [...] Notes Treatment Notes Treatm ent Clinical Notes Sep, Acute pain of right knee (ICD-10 - M25.561) Refer to ortho X-Ray ordered Discussed using Tylenol for symptomatic relief and max daily dosage Sep, Edema of left lower extremity (ICD-10 - R60.0) Increase Turosemide to 1 tablet per day x 3 days Discussed proper footwear Sep, Fall, subsequent encounter (ICD-10 - W19.XXXD) Reviewed risk of falls Discussed proper footwear- Patient is wearing crocs and does not want to change the type of footwear. Discussed slip resistant crocs Continue with PT Has aides in the home 3 days a week for assistance X-Ray ordered Sep, Other Flory Calderon RN BSN, Student-[employer] CHEMIST. I was present during examination and agree with documentation as entered by [employer]OCK [employer] student. PLAN OF TREATMENT Treatment Notes Assessment Notes Clinical Notes Acute pain of right knee Refer to orthoX -Ray orderedDiscussed using Tylenol for symptomatic relief and max daily dosage Edema of left lower extremity Increase T urosemide to 1 tablet per day x 3 daysDiscussed proper footwear Fall, subsequent encounter Reviewed risk of fallsDiscussed proper footwear- Patient is wearing crocs and does not want to change the type of footwear. Discussed slip resistant crocsContinue with PTHas aides in the home 3 days a week for assistanceX-Ray ordered Next Appt Details as scheduled Reason: Provider Name:Page Hendricks, 11-22 11:00:00 AM, [address] [place], [address], Insurance Providers Payer Name Payer Address Payer Phone Insured Name Patient Relati onship to Insured Coverage Start Date Coverage End Date MEDICARE Part A and B [address] [facility] [phone] JANEEN JEFFERSON MEDICAID [email or web address] [address] [facility] [id number] JANEEN JEFFERSON
--- OUTSIDE RECORDS SUMMARY | 2020-11-17 15:13 | CCD ---
Author Author [facility] Organization [facility] Address Unknown Phone Unavailable Care Team Providers Care Oxyacetylene Burner Name Role Phone Efeousmane Page Unavailable PROBLEMS Type Condition ICD9-CM Code [id number] Code Onset Dates Condition S tatus SNOMED Code Notes Problem Coronary artery disease of n ative heart with stable angina pectoris, unspecified vessel or lesion type I25.118 Active 44 7342489 Problem Depression with anxiety F41.8 Active 81137936 6 Problem Macular degeneration, unspecified laterality, unspecif ied type H35.30 Active 847742026 Problem Myasthenia gravis G70.00 Active 35919304 Problem Atrial fibrillation, unspecified type I48.91 Ac tive 01071236 Problem Chronic obstructive pulmonary disease, unspecified COPD ty pe J44.9 Active 55978136 Problem Gastroesophageal reflux disease, esophagitis pre sence not specified K21.9 Active 414503576 ALLERGIES Allergen (clinical drug ingredient) Drug/Non Drug Allergy do cumented on EMR Reaction Allergy Type Onset Date Status strawberries Anaphylaxis Non Drug Allergy Activ e bees Anaphylaxis Non Drug Allergy Active ENCOUNTERS from 1945 to 2020-09-15 Encounter Location Date Provider Diagnosis [address] [address] Sep Page Hendricks IMMUNIZATIONS No Information SOCIAL HISTORY Tobacco Use: Social History Observation Description Date Details (start date - stop date) Current Smoker Sex Assigned At : Social History Observation Description Sex Assigned At Unknown Language: Question Answer Notes Languages spoken: Greek Sexual Hx: Question Answer Notes Had sex [...] y 4 hrs Active Cholecalciferol 1.25 MG (30428 UT) 1 capsule Orally once sunly for 90 day(s) Active Cipro 500 MG 1 tablet Orally every 12 hrs for 5 day(s) Sep, Active Aspirin 81 MG 1 tablet Orally Once a day Active Wellbutrin SR 100 MG 1 tablet in the morning Orally Once a day Active Clonazepam 0.5 MG 1 tablet at bedtime and may take an additional dose twice a day as needed Orally TID MDD 3 for 30 Days Active Vitamin B12 500 MCG 1 tablet Orally Once a day for 30 day(s) Active Oxygen 2LNC continuous nasal cannul a with portability DX: R09.2 oxygen saturation RA at rest: 88%, RA with exertion: 84% 30 Jul, 2020 Active EpiPen 2-Jose Antonio 0.3 MG/0.3ML as directed Injection Active Sertraline HCl 100 MG 1 tablet Orally Once a day Active Freeze It [...] 125 MCG as directed Orally and sunday Active DuoNeb 2.5mg-0.5mg/3ml nebulizer four times daily as needed Active AREDS OTC Active Icy Hot Back 5 % 1 patch as needed Externally Three times a day Active Artificial Tears 1 % 1 drop Ophthalmic four times daily Active Crestor 10 MG 1 tablet Orally Once a day for 90 day(s) Aug, Active Questran 4 GM/DOSE 1 scoop Orally [...] every 12 hrs for 5 days Sep, Clonazepam 0.5 MG 1 tablet at bedtime and may take an additional dose twice a day as needed Orally TID MDD 3 for 30 Days Cholecalciferol 1.25 MG (28612 UT) 1 capsule Orally once mon thly for 90 day(s) Next Appt Details Provider Name:Page Hendricks, 2019-11 08:30:00 AM, [place], [address], Provider Name:Page Hendricks, 11-22 11:00:00 AM, [place], [address], Insurance Providers Payer Name Payer Address Payer Phone Insured Name Patient Relati onship to Insured Coverage Start Date Coverage End Date MEDICARE Part A and B [address] [facility] [phone] JANEEN JEFFERSON self MEDICAID [employer] [address] [place] [address] JANEEN JEFFERSON self
--- OUTSIDE RECORDS SUMMARY | 2020-11-17 15:13 | CCD ---
Author Author [facility] Organization [facility] Address Unknown Phone Unavailable Care Team Providers Care Dude Wrangler Name Role Phone Page Hendricks Unavailable PROBLEMS Type Condition ICD9-CM Code KLS85-PH Code Onset Dates Condition S tatus SNOMED Code Notes Problem Coronary artery disease of n ative heart with stable angina pectoris, unspecified vessel or lesion type I25.118 Active 44 7734559 Problem Depression with anxiety F41.8 Active 78584650 6 Problem Macular degeneration, unspecified laterality, unspecif ied type H35.30 Active 426702030 Problem Myasthenia gravis G70.00 Active 95632141 Problem Atrial fibrillation, unspecified type I48.91 Ac tive 30692624 Problem Chronic obstructive pulmonary disease, unspecified COPD ty pe J44.9 Active 13997374 Problem Gastroesophageal reflux disease, esophagitis pre sence not specified K21.9 Active 415454708 ALLERGIES Allergen (clinical drug ingredient) Drug/Non Drug Allergy do cumented on EMR Reaction Allergy Type Onset Date Status strawberries Anaphylaxis Non Drug Allergy Activ e bees Anaphylaxis Non Drug Allergy Active ENCOUNTERS from 1945 to 2020-09-21 Encounter Location Date Provider Diagnosis [address] [place] [place] [address] Sep Page Hendricks Edema, unspecified type R60.9 IMMUNIZATIONS No Information SOCIAL HISTORY Tobacco Use: Social History Observation Description Date Details (start date - stop date) Current Smoker Sex Assigned At : Social History Observation Description Sex Assigned At Unknown Language: Question Answer Notes Languages spoken: Frisian Sexual Hx: Question Answer Notes Had sex [...] y 4 hrs Active Cholecalciferol 1.25 MG (07048 UT) 1 capsule Orally once mon ly [...] tablet with food Orally and sunday Active Aspirin 81 MG 1 [...] MCG as directed Orally and sunday Active Entresto 24-26 MG 1/2 [...] Treatment Notes Treatm ent Clinical Notes Sep, Edema, unspecified type (ICD-10 - R60.9) PLAN OF TREATMENT Treatment Notes Test Name Order Date ROSIE 2020-09-21 Next Appt Details Provider Name:Page Hendricks, 11-22 11:00:00 AM, [place], [address], Insurance Providers Payer Name Payer Address Payer Phone Insured Name Patient Relati onship to Insured Coverage Start Date Coverage End Date MEDICARE Part A and B [address] [facility] [phone] JANEEN JEFFERSON self MEDICAID [employer] [address] [facility] [id number] JANEEN JEFFERSON
--- OUTSIDE RECORDS SUMMARY | 2020-11-17 15:13 | CCD ---
Author Author [facility] Organization [facility] Address Unknown Phone Unavailable Care Team Providers Care Frameman Name Role Phone Cornelio Saunders Unavailable PROBLEMS Type Condition ICD9-CM Code [id number] Code Onset Dates Condition S tatus SNOMED Code Notes Problem Coronary artery disease of n ative heart with stable angina pectoris, unspecified vessel or lesion type I25.118 Active 44 0114843 Problem Depression with anxiety F41.8 Active 82983848 6 Problem Macular degeneration, unspecified laterality, unspecif ied type H35.30 Active 233164034 Problem Myasthenia gravis G70.00 Active 08676614 Problem Atrial fibrillation, unspecified type I48.91 Ac tive 61968749 Problem Chronic obstructive pulmonary disease, unspecified COPD ty pe J44.9 Active 68826140 Problem Gastroesophageal reflux disease, esophagitis pre sence not specified K21.9 Active 335605287 ALLERGIES Allergen (clinical drug ingredient) Drug/Non Drug Allergy do cumented on EMR Reaction Allergy Type Onset Date Status strawberries Anaphylaxis Non Drug Allergy Activ e bees Anaphylaxis Non Drug Allergy Active ENCOUNTERS from 1945 to 2020-09-16 Encounter Location Date Provider Diagnosis [address] [place] [address] Sep Cornelio Sarahleanna IMMUNIZATIONS No Information SOCIAL HISTORY Tobacco Use: Social History Observation Description Date Details (start date - stop date) Current Smoker Sex Assigned At : Social History Observation Description Sex Assigned At Unknown Language: Question Answer Notes Languages spoken: Monegasque Sexual Hx: Question Answer Notes Had sex [...] y 4 hrs Active Cholecalciferol 1.25 MG (22335 UT) 1 capsule Orally once sunly for [...] Information RESULTS No Results REASON FOR VISIT Clonazepam script clarification MEDICAL (GENERAL) HISTORY Type Description Date Medical [...] 3 for 30 Days Cholecalciferol 1.25 MG (65010 UT) 1 capsule Orally once mon thly for 90 day(s) Next Appt Details Provider Name:Page Hendricks, 2019-11 08:30:00 AM, [place], [address], Provider Name:Page Hendricks, 11-22 11:00:00 AM, [place], [address], Insurance Providers Payer Name Payer Address Payer Phone Insured Name Patient Relati onship to Insured Coverage Start Date Coverage End Date MEDICAID [employer] [address] [facility] [id number] JANEEN JEFFERSON [facility] MEDICARE Part A and B [address] [facility] [address] JANEEN JEFFERSON self
--- OUTSIDE RECORDS SUMMARY | 2020-11-17 15:13 | CCD ---
Author Author [facility] Organization [facility] Address Unknown Phone Unavailable Care Team Providers Care Soda Column Operator Name Role Phone Page Hendricks Unavailable PROBLEMS Type Condition ICD9-CM Code [id number] Code Onset Dates Condition S tatus SNOMED Code Notes Problem Coronary artery disease of n ative heart with stable angina pectoris, unspecified vessel or lesion type I25.118 Active 44 0748630 Problem Depression with anxiety F41.8 Active 39763627 6 Problem Macular degeneration, unspecified laterality, unspecif ied type H35.30 Active 026223133 Problem Myasthenia gravis G70.00 Active 77475949 Problem Atrial fibrillation, unspecified type I48.91 Ac tive 24205642 Problem Chronic obstructive pulmonary disease, unspecified COPD ty pe J44.9 Active 07958883 Problem Gastroesophageal reflux disease, esophagitis pre sence not specified K21.9 Active 875060923 ALLERGIES Allergen (clinical drug ingredient) Drug/Non Drug Allergy do cumented on EMR Reaction Allergy Type Onset Date Status strawberries Anaphylaxis Non Drug Allergy Activ e bees Anaphylaxis Non Drug Allergy Active ENCOUNTERS from 1945 to 2020-09-22 Encounter Location Date Provider Diagnosis [address] [place] [address] Sep Page Hendricks Atrial fibrillation, unspecified type I4 8.91 IMMUNIZATIONS No Information SOCIAL HISTORY Tobacco Use: Social History Observation Description Date Details (start date - stop date) Current Smoker Sex Assigned At : Social History Observation Description Sex Assigned At Unknown Language: Question Answer Notes Languages spoken: Citizen Of [place] Sexual Hx: Question Answer Notes Had sex [...] Counseled the patient on smoking cessation, education [facility] ed 08/04/2020 REASON FOR REFERRAL No Information VITAL SIGNS No information MEDICATIONS Medication SIG (Take, Route, Frequency, Duration) Notes Start Da te End Date Status Icy Hot Back 5 % 1 patch as needed Externally Three times a day Active Ventolin HFA 108 (90 Base) MCG/ACT 1 puff as needed Inhalation ever y 4 hrs Active Cholecalciferol 1.25 MG (26834 UT) 1 capsule Orally once mon thly for 90 day(s) Active Tylenol 8 Hour [...] 1/2 tablet Orally Twice a day Active Cipro 250 MG 1 tablet Orally every 12 hrs for 5 days 2019 Not-Taking Questran 4 GM/DOSE 1 scoop Orally bid Active Torsemide 20 MG 1/2 tablet Orally every morning Active Freeze It 0.2-3.5 % 1 application as needed Externally Twice a day Active AREDS OTC Active Tums 500 MG 1 tablet Orally Once a day for 30 day(s) Active Nitrostat 0.4 MG as directed Sublingual Active Gabapentin 300 MG 2 capsule Orally Once a day Active Artificial Tears 1 % 1 drop Ophthalmic four times daily Active Wellbutrin SR 100 MG 1 tablet in the morning Orally Once a day Active DuoNeb 2.5mg-0.5mg/3ml nebulizer four times daily as needed Active Sertraline HCl 100 MG 1 tablet Orally Once a day Active Clonazepam 0.5 MG 1 tablet at bedtime and may take an additional dose twice a day as needed Orally TID MDD 3 for 30 Days Active Digoxin 125 MCG as directed Orally sun-sun and sunday for 30 days Active PROCEDURES No Information RESULTS No Results REASON FOR VISIT Refill - Digoxin MEDICAL (GENERAL) HISTORY Type Description Date Medical [...] Treatment Notes Treatm ent Clinical Notes Sep, Atrial fibrillation, unspecified type (ICD-10 - I48.91) PLAN OF TREATMENT Medication Medication Name Sig Start Date Stop Date Digoxin 125 MCG as directed Orally sun-sun and sunday for 30 day s Next Appt Details Provider Name:Page Hendricks, 2020-11-22 11:00:00 AM, [address] [place], [address], Insurance Providers Payer Name Payer Address Payer Phone Insured Name Patient Relati onship to Insured Coverage Start Date Coverage End Date MEDICARE Part A and B [address] [facility] [phone] JANEEN JEFFERSON MEDICAID [employer] [address] [facility] [id number] JANEEN JEFFERSON
--- OUTSIDE RECORDS SUMMARY | 2020-11-17 15:13 | CCD ---
Author Author [facility] Organization [facility] Address Unknown Phone Unavailable Care Team Providers Care Retread Operator Name Role Phone Efeousmane Page Unavailable PROBLEMS Type Condition ICD9-CM Code CTU65-SW Code Onset Dates Condition S tatus SNOMED Code Notes Problem Coronary artery disease of n ative heart with stable angina pectoris, unspecified vessel or lesion type I25.118 Active 44 4851678 Problem Depression with anxiety F41.8 Active 25083830 6 Problem Macular degeneration, unspecified laterality, unspecif ied type H35.30 Active 540613394 Problem Myasthenia gravis G70.00 Active 66306434 Problem Atrial fibrillation, unspecified type I48.91 Ac tive 24263410 Problem Chronic obstructive pulmonary disease, unspecified COPD ty pe J44.9 Active 75129412 Problem Gastroesophageal reflux disease, esophagitis pre sence not specified K21.9 Active 028506288 ALLERGIES Allergen (clinical drug ingredient) Drug/Non Drug Allergy do cumented on EMR Reaction Allergy Type Onset Date Status strawberries Anaphylaxis Non Drug Allergy Activ e bees Anaphylaxis Non Drug Allergy Active ENCOUNTERS from 1945 to 2020-10-05 Encounter Location Date Provider Diagnosis [address] [address] Sep Page Hendricks IMMUNIZATIONS No Information SOCIAL HISTORY Tobacco Use: Social History Observation Description Date Details (start date - stop date) Current Smoker Sex Assigned At : Social History Observation Description Sex Assigned At Unknown Language: Question Answer Notes Languages spoken: Bermudian Sexual Hx: Question Answer Notes Had sex [...] y 4 hrs Active Cholecalciferol 1.25 MG (50305 UT) 1 capsule Orally once mon thly [...] Orally and sunday for 30 days Active PROCEDURES No Information RESULTS No Results REASON FOR VISIT Verbal orders MEDICAL (GENERAL) HISTORY Type Description Date Medical [...] s Next Appt Details Provider Name:Page Hendricks, 11-22 11:00:00 AM, [place], [address], Insurance Providers Payer Name Payer Address Payer Phone Insured Name Patient Relati onship to Insured Coverage Start Date Coverage End Date MEDICAID [employer] [address] [facility] [address] JANEEN JEFFERSON self MEDICARE Part A and B [address] [facility] [address] JANEEN JEFFERSON self
--- OUTSIDE RECORDS SUMMARY | 2020-11-17 15:13 | CCD ---
Author Author [facility] Organization [facility] Address Unknown Phone Unavailable Care Team Providers Care [place] Cutter Name Role Phone Efeousmane Page Unavailable PROBLEMS Type Condition ICD9-CM Code ONO97-IM Code Onset Dates Condition S tatus SNOMED Code Notes Problem Coronary artery disease of n ative heart with stable angina pectoris, unspecified vessel or lesion type I25.118 Active 44 1148008 Problem Depression with anxiety F41.8 Active 19037407 6 Problem Macular degeneration, unspecified laterality, unspecif ied type H35.30 Active 204087491 Problem Myasthenia gravis G70.00 Active 67484699 Problem Atrial fibrillation, unspecified type I48.91 Ac tive 14233396 Problem Chronic obstructive pulmonary disease, unspecified COPD ty pe J44.9 Active 32612367 Problem Gastroesophageal reflux disease, esophagitis pre sence not specified K21.9 Active 788798836 ALLERGIES Allergen (clinical drug ingredient) Drug/Non Drug Allergy do cumented on EMR Reaction Allergy Type Onset Date Status strawberries Anaphylaxis Non Drug Allergy Activ e bees Anaphylaxis Non Drug Allergy Active ENCOUNTERS from 1945 to 2020-09-15 Encounter Location Date Provider Diagnosis [address] [place] [address] Sep Page Hendricks IMMUNIZATIONS No Information SOCIAL HISTORY Tobacco Use: Social History Observation Description Date Details (start date - stop date) Current Smoker Sex Assigned At : Social History Observation Description Sex Assigned At Unknown Language: Question Answer Notes Languages spoken: Slovenian Sexual Hx: Question Answer Notes Had sex [...] y 4 hrs Active Cholecalciferol 1.25 MG (45823 UT) 1 capsule Orally once sunly for [...] Information RESULTS No Results REASON FOR VISIT r/s appt MEDICAL (GENERAL) HISTORY Type Description Date Medical [...] 3 for 30 Days Cholecalciferol 1.25 MG (30978 UT) 1 capsule Orally once mon thly for 90 day(s) Next Appt Details Provider Name:Page Hendricks, 2019-11 08:30:00 AM, [place], [address], Provider Name:Page Hendricks, 11-22 11:00:00 AM, [place], [address], Insurance Providers Payer Name Payer Address Payer Phone Insured Name Patient Relati onship to Insured Coverage Start Date Coverage End Date MEDICARE Part A and B [address] [facility] [id number] [phone] JANEEN JEFFERSON self MEDICAID [employer] [address] [facility] [id number] JANEEN JEFFERSON self
--- OUTSIDE RECORDS SUMMARY | 2020-11-17 15:15 | CCD ---
Author Author [facility] Organization [facility] Address Unknown Phone Unavailable Care Team Providers Care Level Vial Marker Name Role Phone Abdon Madden MD Unavailable Unavailable Abdon Madden MD Unavailable Unavailable Abdon Madden MD Unavailable Unavailable Abdon Madden MD Unavailable Unavailable Abdon Madden MD Unavailable Unavailable Abdon Madden MD Unavailable Unavailable Abdon Madden MD Unavailable Unavailable Abdon Madden MD Unavailable Unavailable Abdon Madden MD Unavailable Unavailable Abdon Madden MD Unavailable Unavailable Abdon Madden MD Unavailable Unavailable Abdon Madden MD Unavailable Unavailable Abdon Madden MD Unavailable Unavailable Abdon Madden MD Unavailable Unavailable Abdon Madden MD Unavailable Unavailable Abdon Madden MD Unavailable Unavailable Abdon Madden MD Unavailable Unavailable Abdon Madden MD Unavailable Unavailable Abdon Madden MD Unavailable Unavailable Abdon Madden MD Unavailable Unavailable Abdon Madden MD Unavailable Unavailable Abdon Madden MD Unavailable Unavailable Abdon Madden MD Unavailable Unavailable Abdon Madden MD Unavailable Unavailable Abdon Madden MD Unavailable Unavailable Abdon Madden MD Unavailable Unavailable Abdon Madden MD Unavailable Unavailable Abdon Madden MD Unavailable Unavailable Abdon Madden MD Unavailable Unavailable Abdon Madden MD Unavailable Unavailable Abdon Madden MD Unavailable Unavailable Abdon Madden MD Unavailable Unavailable Abdon Madden MD Unavailable Unavailable Abdon Madden MD Unavailable Unavailable Abdon Madden MD Unavailable Unavailable Abdon Madden MD Unavailable Unavailable Abdon Madden MD Unavailable Unavailable Abdon Madden MD Unavailable Unavailable Abdon Madden MD Unavailable Unavailable Abdon Madden MD Unavailable Unavailable Abdon Madden MD Unavailable Unavailable Abdon Madden MD Unavailable Unavailable Abdon Madden MD Unavailable Unavailable Abdon Madden MD Unavailable Unavailable Abdon Madden MD Unavailable Unavailable Abdon Madden MD Unavailable Unavailable Abdon Madden MD Unavailable Unavailable Abdon Madden MD Unavailable Unavailable Abdon Madden MD Unavailable Unavailable Abdon Madden MD Unavailable Unavailable Abdon Madden MD Unavailable Unavailable Abdon Madden MD Unavailable Unavailable Abdon Madden MD Unavailable Unavailable Abdon Madden MD Unavailable Unavailable Abdon Madden MD Unavailable Unavailable Abdon Madden MD Unavailable Unavailable Abdon Madden MD Unavailable Unavailable Abdon Madden MD Unavailable Unavailable Abdon Madden MD Unavailable Unavailable Abdon Madden MD Unavailable Unavailable Abdon Madden MD Unavailable Unavailable Abdon Madden MD Unavailable Unavailable Abdon Madden MD Unavailable Unavailable Abdon Madden MD Unavailable Unavailable Abdon Madden MD Unavailable Unavailable LUIS, V JE ESCALATOR OPERATOR Unavailable Unavailable LUIS, V JE ESCALATOR OPERATOR Unavailable Unavailable LUIS, V JE ESCALATOR OPERATOR Unavailable Unavailable LUIS, V JE ESCALATOR OPERATOR Unavailable Unavailable LUIS, V JE ESCALATOR OPERATOR Unavailable Unavailable LUIS, V JE ESCALATOR OPERATOR Unavailable Unavailable LUIS, V JE ESCALATOR OPERATOR Unavailable Unavailable LUIS, V JE ESCALATOR OPERATOR Unavailable Unavailable LUIS, V JE ESCALATOR OPERATOR Unavailable Unavailable LUIS, V JE ESCALATOR OPERATOR Unavailable Unavailable LUIS, V JE ESCALATOR OPERATOR Unavailable Unavailable LUIS, V JE ESCALATOR OPERATOR Unavailable Unavailable LUIS, V JE ESCALATOR OPERATOR Unavailable Unavailable LUIS, V JE ESCALATOR OPERATOR Unavailable Unavailable LUIS, V JE ESCALATOR OPERATOR Unavailable Unavailable LUIS, V JE ESCALATOR OPERATOR Unavailable Unavailable LUIS, V JE ESCALATOR OPERATOR Unavailable Unavailable LUIS, V JE ESCALATOR OPERATOR Unavailable Unavailable LUIS, V JE ESCALATOR OPERATOR Unavailable Unavailable LUIS, V JE ESCALATOR OPERATOR Unavailable Unavailable LUIS, V JE ESCALATOR OPERATOR Unavailable Unavailable LUIS, V JE ESCALATOR OPERATOR Unavailable Unavailable LUIS, V JE ESCALATOR OPERATOR Unavailable Unavailable LUIS, V JE ESCALATOR OPERATOR Unavailable Unavailable LUIS, V JE ESCALATOR OPERATOR Unavailable Unavailable LUIS, V JE ESCALATOR OPERATOR Unavailable Unavailable LUIS, V JE ESCALATOR OPERATOR Unavailable Unavailable LUIS, V JE ESCALATOR OPERATOR Unavailable Unavailable LUIS, V JE ESCALATOR OPERATOR Unavailable Unavailable LUIS, V JE ESCALATOR OPERATOR Unavailable Unavailable LUIS, V JE ESCALATOR OPERATOR Unavailable Unavailable LUIS, V JE ESCALATOR OPERATOR Unavailable Unavailable LUIS, V JE ESCALATOR OPERATOR Unavailable Unavailable LUIS, V JE ESCALATOR OPERATOR Unavailable Unavailable LUIS, V JE ESCALATOR OPERATOR Unavailable Unavailable LUIS, V JE ESCALATOR OPERATOR Unavailable Unavailable LUIS, V JE ESCALATOR OPERATOR Unavailable Unavailable LUIS, V JE ESCALATOR OPERATOR Unavailable Unavailable LUIS, V JE ESCALATOR OPERATOR Unavailable Unavailable LUIS, V JE ESCALATOR OPERATOR Unavailable Unavailable LUIS, V JE ESCALATOR OPERATOR Unavailable Unavailable LUIS, V JE ESCALATOR OPERATOR Unavailable Unavailable LUIS, V JE ESCALATOR OPERATOR Unavailable Unavailable LUIS, V JE ESCALATOR OPERATOR Unavailable Unavailable LUIS, V JE ESCALATOR OPERATOR Unavailable Unavailable LUIS, V JE ESCALATOR OPERATOR Unavailable Unavailable LUIS, V JE ESCALATOR OPERATOR Unavailable Unavailable LUIS, V JE ESCALATOR OPERATOR Unavailable Unavailable LUIS, V JE ESCALATOR OPERATOR Unavailable Unavailable LUIS, V JE ESCALATOR OPERATOR Unavailable Unavailable LUIS, V JE ESCALATOR OPERATOR Unavailable Unavailable LUIS, V JE ESCALATOR OPERATOR Unavailable Unavailable LUIS, V JE ESCALATOR OPERATOR Unavailable Unavailable LUIS, V JE ESCALATOR OPERATOR Unavailable Unavailable LUIS, V JE ESCALATOR OPERATOR Unavailable Unavailable LUIS, V JE ESCALATOR OPERATOR Unavailable Unavailable LUIS, V JE ESCALATOR OPERATOR Unavailable Unavailable LEFTY GARNETT MD Unavailable Unavailable LEFTY GARNETT MD Unavailable Unavailable LEFTY GARNETT MD Unavailable Unavailable LEFTY GARNETT MD Unavailable Unavailable LEFTY GARNETT MD Unavailable Unavailable LEFTY GARNETT MD Unavailable Unavailable Mayra Hendricks LEAD PROJECT ENGINEER Unavailable Unavailable Alberry, D Page LEAD PROJECT ENGINEER Unavailable Unavailable Alberry, D Page LEAD PROJECT ENGINEER Unavailable Unavailable Alberry, D Page LEAD PROJECT ENGINEER Unavailable Unavailable Alberry, D Page LEAD PROJECT ENGINEER Unavailable Unavailable Alberry, D Page LEAD PROJECT ENGINEER Unavailable Unavailable Alberry, D Page LEAD PROJECT ENGINEER Unavailable Unavailable Alberry, D Page LEAD PROJECT ENGINEER Unavailable Unavailable Alberry, D Page LEAD PROJECT ENGINEER Unavailable Unavailable Alberry, D Page LEAD PROJECT ENGINEER Unavailable Unavailable Alberry, D Page LEAD PROJECT ENGINEER Unavailable Unavailable Alberry, D Page LEAD PROJECT ENGINEER Unavailable Unavailable Alberry, D Page LEAD PROJECT ENGINEER Unavailable Unavailable Alberry, D Page LEAD PROJECT ENGINEER Unavailable Unavailable Alberry, D Page LEAD PROJECT ENGINEER Unavailable Unavailable Alberry, D Page LEAD PROJECT ENGINEER Unavailable Unavailable Alberry, D Page LEAD PROJECT ENGINEER Unavailable Unavailable Alberry, D Page LEAD PROJECT ENGINEER Unavailable Unavailable Alberry, D Page LEAD PROJECT ENGINEER Unavailable Unavailable Alberry, D Page LEAD PROJECT ENGINEER Unavailable Unavailable Alberry, D Page LEAD PROJECT ENGINEER Unavailable Unavailable Alberry, D Page LEAD PROJECT ENGINEER Unavailable Unavailable Alberry, D Page LEAD PROJECT ENGINEER Unavailable Unavailable Alberry, D Page LEAD PROJECT ENGINEER Unavailable Unavailable Alberry, D Page LEAD PROJECT ENGINEER Unavailable Unavailable Alberry, D Page LEAD PROJECT ENGINEER Unavailable Unavailable Alberry, D Page LEAD PROJECT ENGINEER Unavailable Unavailable Alberry, D Page LEAD PROJECT ENGINEER Unavailable Unavailable Alberry, D Page LEAD PROJECT ENGINEER Unavailable Unavailable Alberry, D Page LEAD PROJECT ENGINEER Unavailable Unavailable Alberry, D Page LEAD PROJECT ENGINEER Unavailable Unavailable Alberry, D Page LEAD PROJECT ENGINEER Unavailable Unavailable Alberry, D Page LEAD PROJECT ENGINEER Unavailable Unavailable Alberry, D Page LEAD PROJECT ENGINEER Unavailable Unavailable Alberry, D Page LEAD PROJECT ENGINEER Unavailable Unavailable Alberry, D Page LEAD PROJECT ENGINEER Unavailable Unavailable Alberry, D Page LEAD PROJECT ENGINEER Unavailable Unavailable Alberry, D Page LEAD PROJECT ENGINEER Unavailable Unavailable Alberry, D Page LEAD PROJECT ENGINEER Unavailable Unavailable Alberry, D Page LEAD PROJECT ENGINEER Unavailable Unavailable Alberry, D Page LEAD PROJECT ENGINEER Unavailable Unavailable Alberry, D Page LEAD PROJECT ENGINEER Unavailable Unavailable Alberry, D Page LEAD PROJECT ENGINEER Unavailable Unavailable Alberry, D Page LEAD PROJECT ENGINEER Unavailable Unavailable Alberry, D Page LEAD PROJECT ENGINEER Unavailable Unavailable Alberry, D Page LEAD PROJECT ENGINEER Unavailable Unavailable Alberry, D Page LEAD PROJECT ENGINEER Unavailable Unavailable Kimmy Wang MD Unavailable Unavailable Kimmy Wang MD Unavailable Unavailable Kimmy Wang MD Unavailable Unavailable Kimmy Wang MD Unavailable Unavailable Kimmy Wang MD Unavailable Unavailable Kimmy Wang MD Unavailable Unavailable Kimmy Wang MD Unavailable Unavailable Kimmy Wang MD Unavailable Unavailable Kimmy Wang MD Unavailable Unavailable Kimmy Wang MD Unavailable Unavailable Kimmy Wang MD Unavailable Unavailable Kimmy Wang MD Unavailable Unavailable Kimmy Wang MD Unavailable Unavailable VICENTA MASTERSON MD Unavailable Unavailable VICENTA MASTERSON MD Unavailable Unavailable VICENTA MASTERSON MD Unavailable Unavailable VICENTA MASTERSON MD Unavailable Unavailable VICENTA MASTERSON MD Unavailable Unavailable VICENTA MASTERSON MD Unavailable Unavailable VICENTA MASTERSON MD Unavailable Unavailable VICENTA MASTERSON MD Unavailable Unavailable VICENTA MASTERSON MD Unavailable Unavailable VICENTA MASTERSON MD Unavailable Unavailable VICENTA MASTERSON MD Unavailable Unavailable VICENTA MASTERSON MD Unavailable Unavailable VICENTA MASTERSON MD Unavailable Unavailable VICENTA MASTERSON MD Unavailable Unavailable VICENTA MASTERSON MD Unavailable Unavailable VICENTA MASTERSON MD Unavailable Unavailable VICENTA MASTERSON MD Unavailable Unavailable VICENTA MASTERSON MD Unavailable Unavailable VICENTA MASTERSON MD Unavailable Unavailable VICENTA MASTERSON MD Unavailable Unavailable VICENTA MASTERSON MD Unavailable Unavailable VICENTA MASTERSON MD Unavailable Unavailable VICENTA MASTERSON MD Unavailable Unavailable VICENTA MASTERSON MD Unavailable Unavailable VICENTA MASTERSON MD Unavailable Unavailable VICENTA MASTERSON MD Unavailable Unavailable VICENTA MASTERSON MD Unavailable Unavailable VICENTA MASTERSON MD Unavailable Unavailable VICENTA MASTERSON MD Unavailable Unavailable VICENTA MASTERSON MD Unavailable Unavailable PHYSICIAN, PHYSICIAN ER Unavailable Unavailable Lio MULLEN MD Unavailable Unavailable Lio MULLEN MD Unavailable Unavailable Lio MULLEN MD Unavailable Unavailable Lio MULLEN MD Unavailable Unavailable Lio MULLEN MD Unavailable Unavailable Lio MULLEN MD Unavailable Unavailable Lio MULLEN MD Unavailable Unavailable Lio MULLEN MD Unavailable Unavailable Lio MULLEN MD Unavailable Unavailable Lio MULLEN MD Unavailable Unavailable Lio MULLEN MD Unavailable Unavailable Lio MULLEN MD Unavailable Unavailable Lio MULLEN MD Unavailable Unavailable Lio MULLEN MD Unavailable Unavailable Lio MULLEN MD Unavailable Unavailable Lio MULLEN MD Unavailable Unavailable Lio MULLEN MD Unavailable Unavailable RISTOFF, Lio LERMA MD Unavailable Unavailable RISTOFF, Lio LERMA MD Unavailable Unavailable RISTOFF, Lio LERMA MD Unavailable Unavailable RISTOFF, Lio LERMA MD Unavailable Unavailable RISTOFF, Lio LERMA MD Unavailable Unavailable RISTOFF, Lio LERMA MD Unavailable Unavailable RISTOFF, Lio LERMA MD Unavailable Unavailable RISTOFF, Lio LERMA MD Unavailable Unavailable RISTOFF, Lio LERMA MD Unavailable Unavailable RISTOFF, Lio LERMA MD Unavailable Unavailable RISTOFF, Lio LERMA MD Unavailable Unavailable RISTOFF, Lio LERMA MD Unavailable Unavailable RISTOFF, Lio LERMA MD Unavailable Unavailable RISTOFF, Lio LERMA MD Unavailable Unavailable RISTOFF, Lio LERMA MD Unavailable Unavailable RISTOFF, Lio LERMA MD Unavailable Unavailable RISTOFF, Lio LERMA MD Unavailable Unavailable RISTOFF, Lio LERMA MD Unavailable Unavailable RISTOFF, Lio LERMA MD Unavailable Unavailable RISTOFF, Lio LERMA MD Unavailable Unavailable RISTOFF, Lio LERMA MD Unavailable Unavailable RISTOFF, Lio LERMA MD Unavailable Unavailable RISTOFF, Lio LERMA MD Unavailable Unavailable RISTOFF, Lio LERMA MD Unavailable Unavailable RISTOFF, Lio LERMA MD Unavailable Unavailable RISTOFF, Lio LERMA MD Unavailable Unavailable RISTOFF, Lio LERMA MD Unavailable Unavailable RISTOFF, Lio LERMA MD Unavailable Unavailable RISTOFF, Lio LERMA MD Unavailable Unavailable RISTOFF, Lio LERMA MD Unavailable Unavailable RISTOFF, Lio LERMA MD Unavailable Unavailable RISTOFF, Lio LERMA MD Unavailable Unavailable RISTOFF, Lio LERMA MD Unavailable Unavailable RISTOFF, Lio LERMA MD Unavailable Unavailable RISTOFF, Lio LERMA MD Unavailable Unavailable RISTOFF, Lio LERMA MD Unavailable Unavailable RISTOFF, Lio LERMA MD Unavailable Unavailable RISTOFF, Lio LERMA MD Unavailable Unavailable RISTOFF, Lio LERMA MD Unavailable Unavailable RISTOFF, Lio LERMA MD Unavailable Unavailable RISTOFF, Lio LERMA MD Unavailable Unavailable RISTOFF, Lio LERMA MD Unavailable Unavailable RISTOFF, Lio LERMA MD Unavailable Unavailable RISTOFF, Lio LERMA MD Unavailable Unavailable RISTOFF, Lio LERMA MD Unavailable Unavailable RISTOFF, Lio LERMA MD Unavailable Unavailable RISTOPURNIMA, Lio LERMA MD Unavailable Unavailable Celestina MELENDREZ MD Unavailable Unavailable HELAUGUST, Celestina HOLLEY MD Unavailable Unavailable HELCelestina KOCH MD Unavailable Unavailable HELLER, Celestina HOLLEY MD Unavailable Unavailable HELLER, Celestina HOLLEY MD Unavailable Unavailable HELLER, Celestina HOLLEY MD Unavailable Unavailable HELLER, Celestina HOLLEY MD Unavailable Unavailable HELLER, Celestina HOLLEY MD Unavailable Unavailable HELLER, Celestina HOLLEY MD Unavailable Unavailable ANTECOL, Celestina COPPOLA MD Unavailable Unavailable ANTECOL, Celestina COPPOLA MD Unavailable Unavailable ANTECOL, Celestina COPPOLA MD Unavailable Unavailable ANTECOL, Celestina COPPOLA MD Unavailable Unavailable ANTECOL, Celestina COPPOLA MD Unavailable Unavailable ANTECOL, Celestina COPPOLA MD Unavailable Unavailable ANTECOL, Celestina COPPOLA MD Unavailable Unavailable ANTECOL, Celestina COPPOLA MD Unavailable Unavailable ANTECOL, Celestina COPPOLA MD Unavailable Unavailable ANTECOL, Celestina COPPOLA MD Unavailable Unavailable ANTECOL, Celestina COPPOLA MD Unavailable Unavailable ANTECOL, Celestina COPPOLA MD Unavailable Unavailable ANTECOL, Celestina COPPOLA MD Unavailable Unavailable ANTECOL, Celestina COPPOLA MD Unavailable Unavailable ANTECOL, Celestina COPPOLA MD Unavailable Unavailable ANTECOL, Celestina COPPOLA MD Unavailable Unavailable ANTECOL, Celestina COPPOLA MD Unavailable Unavailable ANTECOL, Celestina COPPOLA MD Unavailable Unavailable ANTECOL, Celestina COPPOLA MD Unavailable Unavailable ANTECOL, Celestina COPPOLA MD Unavailable Unavailable ANTECOL, Celestina COPPOLA MD Unavailable Unavailable ANTECOL, Celestina COPPOLA MD Unavailable Unavailable ANTECOL, Celestina COPPOLA MD Unavailable Unavailable ANTECOL, Celestina COPPOLA MD Unavailable Unavailable ANTECOL, Celestina COPPOLA MD Unavailable Unavailable ANTECOL, Celestina COPPOLA MD Unavailable Unavailable ANTECOL, Celestina COPPOLA MD Unavailable Unavailable ANTECOL, Celestina COPPOLA MD Unavailable Unavailable ANTECOL, Celestina COPPOLA MD Unavailable Unavailable ANTECOL, Celestina COPPOLA MD Unavailable Unavailable ANTECOL, Celestina COPPOLA MD Unavailable Unavailable ANTECOL, Celestina COPPOLA MD Unavailable Unavailable ANTECOL, Celestina COPPOLA MD Unavailable Unavailable ANTECOL, Celestina COPPOLA MD Unavailable Unavailable ANTECOL, Celestina COPPOLA MD Unavailable Unavailable ANTECOL, Celestina COPPOLA MD Unavailable Unavailable ANTECOL, Celestina COPPOLA MD Unavailable Unavailable ANTECOL, Celestina COPPOLA MD Unavailable Unavailable ANTECOL, Celestina COPPOLA MD Unavailable Unavailable ANTECOL, Celestina COPPOLA MD Unavailable Unavailable ANTECOL, Celestina COPPOLA MD Unavailable Unavailable ANTECOL, Celestina COPPOLA MD Unavailable Unavailable ANTECOL, Celestina COPPOLA MD Unavailable Unavailable ANTECOL, Celestina COPPOLA MD Unavailable Unavailable ANTECOL, Celestina COPPOLA MD Unavailable Unavailable ANTECOL, Celestina COPPOLA MD Unavailable Unavailable ANTECOL, Celestina COPPOLA MD Unavailable Unavailable ANTECOL, Celestina COPPOLA MD Unavailable Unavailable ANTECOL, Celestina COPPOLA MD Unavailable Unavailable ANTECOL, Celestina COPPOLA MD Unavailable Unavailable ANTECOL, Celestina COPPOLA MD Unavailable Unavailable ANTECOL, Celestina COPPOLA MD Unavailable Unavailable ANTECOL, Celestina COPPOLA MD Unavailable Unavailable ANTECOL, Celestina COPPOLA MD Unavailable Unavailable ANTECOL, Celestina COPPOLA MD Unavailable Unavailable JEROMY, GUTIÉRREZ MOHAMMAD Unavailable Unavailable JEROMY, GUTIÉRREZ MOHAMMAD Unavailable Unavailable JEROMY, GUTIÉRREZ MOHAMMAD Unavailable Unavailable JEROMY, GUTIÉRREZ MOHAMMAD Unavailable Unavailable JEROMY, GUTIÉRREZ MOHAMMAD Unavailable Unavailable JEROMY, GUTIÉRREZ MOHAMMAD Unavailable Unavailable JEROMY, GUTIÉRREZ MOHAMMAD Unavailable Unavailable JEROMY, GUTIÉRREZ MOHAMMAD Unavailable Unavailable JEROMY, GUTIÉRREZ MOHAMMAD Unavailable Unavailable JEROMY, GUTIÉRREZ MOHAMMAD Unavailable Unavailable JEROMY, GUTIÉRREZ MOHAMMAD Unavailable Unavailable JEROMY, GUTIÉRREZ MOHAMMAD Unavailable Unavailable JEROMY, GUTIÉRREZ MOHAMMAD Unavailable Unavailable JEROMY, GUTIÉRREZ MOHAMMAD Unavailable Unavailable JEROMY, GUTIÉRREZ MOHAMMAD Unavailable Unavailable JEROMY, GUTIÉRREZ MOHAMMAD Unavailable Unavailable JEROMY, GUTIÉRREZ MOHAMMAD Unavailable Unavailable PHYSICIAN, ER Unavailable Unavailable Drake, Saloni MD Unavailable Unavailable Drake, Saloni MD Unavailable Unavailable Drake, Saloni MD Unavailable Unavailable Drake, Saloni MD Unavailable Unavailable Drake, Saloni MD Unavailable Unavailable Drake, Saloni MD Unavailable Unavailable Drake, Saloni MD Unavailable Unavailable Drake, Saloni MD Unavailable Unavailable Drake, Saloni MD Unavailable Unavailable Drake, Saloni MD Unavailable Unavailable Drake, Saloni MD Unavailable Unavailable Drake, Saloni MD Unavailable Unavailable Drake, Saloni MD Unavailable Unavailable Drake, Saloni MD Unavailable Unavailable Drake, Saloni MD Unavailable Unavailable Drake, Saloni MD Unavailable Unavailable Drake, Saloni MD Unavailable Unavailable Drake, Saloni MD Unavailable Unavailable Drake, Saloni MD Unavailable Unavailable Darke, Saloni MD Unavailable Unavailable Drake, Saloni MD Unavailable Unavailable Drake, Saloni MD Unavailable Unavailable Drake, Saloni MD Unavailable Unavailable Drake, Saloni MD Unavailable Unavailable Drake, Saloni MD Unavailable Unavailable Drake, Saloni MD Unavailable Unavailable Drake, Saloni MD Unavailable Unavailable Drake, Saloni MD Unavailable Unavailable Drake, Saloni MD Unavailable Unavailable Drake, Saloni MD Unavailable Unavailable Drake, Saloni MD Unavailable Unavailable Drake, Saloni MD Unavailable Unavailable Drake, Saloni MD Unavailable Unavailable Drake, Saloni MD Unavailable Unavailable Drake, Saloni MD Unavailable Unavailable Drake, Saloni MD Unavailable Unavailable Drake, Saloni MD Unavailable Unavailable Ranjbaran-Jahromi, Melvin MD Unavailable Unavailabl e Ranjbaran-Jahromi, Melvin MD Unavailable Unavailabl e Clairebaran-Jahromi, Melvin Unavailable Unavailabl e Clairebarjudi-Jahromi Melvin MD Unavailable Unavailabl e Ranjbaran-Jahromi, Melvin MD Unavailable Unavailabl e Clairebaran-Jahromi Melvin MD Unavailable Unavailabl e Clairebaran-Jahromi Melvin MD Unavailable Unavailabl e Clairebaran-Jahromi Melvin MD Unavailable Unavailabl e Ranliobaran-Jahromi Melvin MD Unavailable Unavailabl e Clairebaran-Jahromi Melvin Unavailable Unavailabl e Clairebarjudi-Jahromi Melvin MD Unavailable Unavailabl e Clairebaran-Jahromi Melvin MD Unavailable Unavailabl e Clairebaran-Jahromi Melvin MD Unavailable Unavailabl e Salo-Jahromi Melvin Unavailable Unavailabl e Salo-Jahromi Melvin MD Unavailable Unavailabl e Salo-Jahromi Melvin MD Unavailable Unavailabl e Salo-Eziohromi Melvincasie FREITAS Unavailable Unavailabl e Salo-Eziohromi Melvincasie FREITAS Unavailable Unavailabl e Salo-Jahromi Melvincasie FREITAS Unavailable Unavailabl e Salo-Jahromi Melvincasie FREITAS Unavailable Unavailabl e Salo-Eziohromi Melvincasie FREITAS Unavailable Unavailabl e Salo-Eziohromi Melvin MD Unavailable Unavailabl e Clairebaran-Jahromi Melvin MD Unavailable Unavailabl e Bryanan-Jahromi Melvin Unavailable Unavailabl e Salo-Eziohromi Melvincasie FREITAS Unavailable Unavailabl e Salo-Eziohromi Melvincasie FREITAS Unavailable Unavailabl e Bryanan-Jahromi Melvin MD Unavailable Unavailabl e Salo-Jahromi Melvin Unavailable Unavailabl e Salo-Eziohromi Melvincasie FREITAS Unavailable Unavailabl e Salo-Eziohromi Melvincasie FREITAS Unavailable Unavailabl e Ranliobaran-Jahromi, Melvin MD Unavailable Unavailabl e Clairebarjudi-Eziohromi Melvin MD Unavailable Unavailabl e Clairebarjudi-Eziohromi Melvin MD Unavailable Unavailabl e Clairebaran-Jahromi, Melvin MD Unavailable Unavailabl e Clairebaran-Jahromi, Melvin MD Unavailable Unavailabl e Clairebarjudi-Jahromi Melvin MD Unavailable Unavailabl e Clairebarjudi-Jahromi Melvin MD Unavailable Unavailabl e Clairebaran-Jahromi Melvin MD Unavailable Unavailabl e Clairebaran-Jahromi Melvin MD Unavailable Unavailabl e Clairebaran-Jahromi Melvin MD Unavailable Unavailabl e Clairebaran-Jahromi Melvin MD Unavailable Unavailabl e Clairebaran-Jahromi Melvin MD Unavailable Unavailabl e Salo-Eziohromi Melvin MD Unavailable Unavailabl e Salo-Eziohromi Melvin MD Unavailable Unavailabl e Salo-Jahromi Melvin MD Unavailable Unavailabl e Salo-Jahromi Melvin MD Unavailable Unavailabl e Salo-Eziohromi Melvincasie FREITAS Unavailable Unavailabl e Salo-Eziohromi Melvincasie FREITAS Unavailable Unavailabl e Salo-Eziohromi Melvincasie FREITAS Unavailable Unavailabl e Salo-Eziohromi Melvin MD Unavailable Unavailabl e Salo-Eziohromi Melvin MD Unavailable Unavailabl e Clairebaran-Jahromi Melvin MD Unavailable Unavailabl e Clairebaran-Jahromi Melvin MD Unavailable Unavailabl e Salo-Eziohromi Melvin MD Unavailable Unavailabl e Salo-Eziohromi Melvincasie FREITAS Unavailable Unavailabl e Salo-Eziohromi Melvincasie FREITAS Unavailable Unavailabl e Bryanan-Jahromi Melvin Unavailable Unavailabl e Salo-Jahromi Melvin MD Unavailable Unavailabl e Salo-Jahromi Melvin MD Unavailable Unavailabl e Ranjbaran-Jahromi, Melvin MD Unavailable Unavailabl e Ranjbaran-Jahromi, Melvin MD Unavailable Unavailabl e Ranjbaran-Jahromi, Melvin MD Unavailable Unavailabl e Ranjbaran-Jahromi, Melvin MD Unavailable Unavailabl e Ranjbaran-Jahromi, Melvin MD Unavailable Unavailabl e Yuniorjbaran-Jahromi, Melvin MD Unavailable Unavailabl e Ranjbaran-Jahromi, Melvin MD Unavailable Unavailabl e Ranjbaran-Jahromi, Melvin MD Unavailable Unavailabl e Ranjbaran-Jahromi, Melvin MD Unavailable Unavailabl e Ranjbaran-Jahromi, Melvin MD Unavailable Unavailabl e Yuniorjbaran-Jahromi, Melvin MD Unavailable Unavailabl e Ranjbaran-Jahromi, Melvin MD Unavailable Unavailabl e Yuniorjbaran-Jahromi, Melvin MD Unavailable Unavailabl e Clairebaran-Jahromi, Melvin MD Unavailable Unavailabl e Ranjbaran-Jahromi, Melvin MD Unavailable Unavailabl e Ranjbaran-Jahromi, Melvin MD Unavailable Unavailabl e Clairebaran-Jahromi, Melvin MD Unavailable Unavailabl e Clairebaran-Jahromi, Melvin MD Unavailable Unavailabl e Yuniorjbaran-Jahromi, Melvin MD Unavailable Unavailabl e Ranliobaran-Jahromi, Melvin MD Unavailable Unavailabl e Clairebaran-Jahromi, Melvin MD Unavailable Unavailabl e Clairebaran-Jahromi, Melvin MD Unavailable Unavailabl e Ranjbaran-Jahromi, Melvin MD Unavailable Unavailabl e Ranjbaran-Jahromi, Melvin MD Unavailable Unavailabl e Clairebaran-Jahromi, Melvin MD Unavailable Unavailabl e Clairebaran-Jahromi, Melvin MD Unavailable Unavailabl e Clairebaran-Jahromi, Melvin MD Unavailable Unavailabl e Raya Gutierrez ESCALATOR OPERATOR Unavailable Unavailable Ogunsedmakenna Raya ESCALATOR OPERATOR Unavailable Unavailable Ogunsedmakenna Raya ESCALATOR OPERATOR Unavailable Unavailable Ogunsedmakenna Raya ESCALATOR OPERATOR Unavailable Unavailable Ogunsede, Raya ESCALATOR OPERATOR Unavailable Unavailable Ogunsede, Raya ESCALATOR OPERATOR Unavailable Unavailable Ogunsede, Raya ESCALATOR OPERATOR Unavailable Unavailable Ogunsede, Raya ESCALATOR OPERATOR Unavailable Unavailable Ogunsede, Raya ESCALATOR OPERATOR Unavailable Unavailable Ogunsede, Raya ESCALATOR OPERATOR Unavailable Unavailable Ogunsede, Raya ESCALATOR OPERATOR Unavailable Unavailable Ogunsede, Raya ESCALATOR OPERATOR Unavailable Unavailable Ogunsede, Raya ESCALATOR OPERATOR Unavailable Unavailable Ogunsede, Raya ESCALATOR OPERATOR Unavailable Unavailable Ogunsede, Raya ESCALATOR OPERATOR Unavailable Unavailable Ogunsede, Raya ESCALATOR OPERATOR Unavailable Unavailable Ogunsede, Raya ESCALATOR OPERATOR Unavailable Unavailable Ogunsede, Raya ESCALATOR OPERATOR Unavailable Unavailable Ogunsede, Raya ESCALATOR OPERATOR Unavailable Unavailable Ogunsede, Raya ESCALATOR OPERATOR Unavailable Unavailable VICENTA MASTERSON MD Unavailable Unavailable VICENTA MASTERSON MD Unavailable Unavailable VICENTA MASTERSON MD Unavailable Unavailable VICENTA MASTERSON MD Unavailable Unavailable VICENTA MASTERSON MD Unavailable Unavailable VICENTA MASTERSON MD Unavailable Unavailable VICENTA MASTERSON MD Unavailable Unavailable VICENTA MASTERSON MD Unavailable Unavailable VICENTA MASTERSON MD Unavailable Unavailable VICENTA MASTERSON MD Unavailable Unavailable VICENTA MASTERSON MD Unavailable Unavailable VICENTA MASTERSON MD Unavailable Unavailable VICENTA MASTERSON MD Unavailable Unavailable VICENTA MASTERSON MD Unavailable Unavailable VICENTA MASTERSON MD Unavailable Unavailable VICENTA MASTERSON MD Unavailable Unavailable VICENTA MASTERSON MD Unavailable Unavailable VICENTA MASTERSON MD Unavailable Unavailable VICENTA MASTERSON MD Unavailable Unavailable VICENTA MASTERSON MD Unavailable Unavailable VICENTA MASTERSON MD Unavailable Unavailable VICENTA MASTERSON MD Unavailable Unavailable VICENTA MASTERSON MD Unavailable Unavailable VICENTA MASTERSON MD Unavailable Unavailable VICENTA MASTERSON MD Unavailable Unavailable VICENTA MASTERSON MD Unavailable Unavailable VICENTA MASTERSON MD Unavailable Unavailable VICENTA MASTERSON MD Unavailable Unavailable VICENTA MASTERSON MD Unavailable Unavailable VICENTA MASTERSON MD Unavailable Unavailable ASHVIN, Mayra BILLS MD Unavailable Unavailable ASHVIN, Mayra BILLS MD Unavailable Unavailable ASHVIN, Mayra BILLS MD Unavailable Unavailable ASHVIN, Mayra BILLS MD Unavailable Unavailable ASHVIN, Mayra BILLS MD Unavailable Unavailable ASHVIN, Mayra BILLS MD Unavailable Unavailable ASHVIN, Mayra BILLS MD Unavailable Unavailable ASHVIN, Mayra BILLS MD Unavailable Unavailable ASHVIN, Mayra BILLS MD Unavailable Unavailable ASHVIN, Mayra BILLS MD Unavailable Unavailable ASHVIN, Mayra BILLS MD Unavailable Unavailable ASHVIN, Mayra BILLS MD Unavailable Unavailable ASHVIN, Mayra BILLS MD Unavailable Unavailable ASHVIN, Mayra BILLS MD Unavailable Unavailable ASHVIN, Mayra BILLS MD Unavailable Unavailable ASHVIN, Mayra BILLS MD Unavailable Unavailable ASHVIN, Mayra BILLS MD Unavailable Unavailable ASHVIN, Mayra BILLS MD Unavailable Unavailable ASHVIN, Mayra BILLS MD Unavailable Unavailable ASHVIN, Mayra BILLS MD Unavailable Unavailable ASHVIN, Mayra BILLS MD Unavailable Unavailable ASHVIN, Mayra BILLS MD Unavailable Unavailable ASHVIN, Mayra BILLS MD Unavailable Unavailable ASHVIN, Mayra BILLS MD Unavailable Unavailable ASHVIN, Mayra BILLS MD Unavailable Unavailable ASHVIN, Mayra BILLS MD Unavailable Unavailable ASHVIN, Mayra BILLS MD Unavailable Unavailable ASHVIN, Mayra BILLS MD Unavailable Unavailable ASHVIN, Mayra BILLS MD Unavailable Unavailable ASHVIN, Mayra BILLS MD Unavailable Unavailable ASHVIN, Mayra BILLS MD Unavailable Unavailable ASHVIN, Mayra BILLS MD Unavailable Unavailable ASHVIN, Mayra BILLS MD Unavailable Unavailable ASHVIN, Mayra BILLS MD Unavailable Unavailable ASHVIN, Mayra BILLS MD Unavailable Unavailable ASHVIN, Mayra BILLS MD Unavailable Unavailable ASHVIN, Mayra BILLS MD Unavailable Unavailable ASHVIN, Mayra BILLS MD Unavailable Unavailable ASHVIN, Mayra BILLS MD Unavailable Unavailable ASHVIN, Mayra BILLS MD Unavailable Unavailable ASHVIN, Mayra BILLS MD Unavailable Unavailable ASHVIN, Mayra BILLS MD Unavailable Unavailable ASHVIN, Mayra BILLS MD Unavailable Unavailable ASHVIN, Mayra BILLS MD Unavailable Unavailable ASHVIN, Mayra BILLS MD Unavailable Unavailable ASHVIN, Mayra BILLS MD Unavailable Unavailable ASHVIN, Mayra BILLS MD Unavailable Unavailable ASHVIN, Mayra BILLS MD Unavailable Unavailable ASHVIN, Mayra BILLS MD Unavailable Unavailable ASHVIN, Mayra BILLS MD Unavailable Unavailable ASHVIN, Mayra BILLS MD Unavailable Unavailable ASHVIN, Mayra BILLS MD Unavailable Unavailable ASHVIN, Mayra BILLS MD Unavailable Unavailable ASHVIN, Mayra BILLS MD Unavailable Unavailable ASHVIN, Mayra BILLS MD Unavailable Unavailable ASHVIN, Mayra BILLS MD Unavailable Unavailable ASHVIN, Mayra BILLS MD Unavailable Unavailable ASHVIN, Mayra BILLS MD Unavailable Unavailable ASHVIN, Mayra BILLS MD Unavailable Unavailable ASHVIN, Mayra BILLS MD Unavailable Unavailable ASHVIN, Mayra BILLS MD Unavailable Unavailable ASHVIN, Mayra BILLS MD Unavailable Unavailable ASHVIN, Mayra BILLS MD Unavailable Unavailable Kaila Sanford MD Unavailable Unavailable Kaila Sanford MD Unavailable Unavailable Kaila Sanford MD Unavailable Unavailable Kaila Sanford MD Unavailable Unavailable Kaila Sanford MD Unavailable Unavailable Kaila Sanford MD Unavailable Unavailable Ali, Kaila FREITAS Unavailable Unavailable Ali, Kaila FREITAS Unavailable Unavailable Ali, Kaila FREITAS Unavailable Unavailable Ali, Kaila FREITAS Unavailable Unavailable Ali, Kaila FREITAS Unavailable Unavailable Ali, Kaila FREITAS Unavailable Unavailable Ali, Kaila FREITAS Unavailable Unavailable Ali, Kaila FREITAS Unavailable Unavailable Ali, Kaila FREITAS Unavailable Unavailable Ali, Kaila Unavailable Unavailable Ali, Kaila FREITAS Unavailable Unavailable Ali, Kaila FREITAS Unavailable Unavailable Ali, Kaila FREITAS Unavailable Unavailable Ali, Kaila FREITAS Unavailable Unavailable Ali, Kaila FREITAS Unavailable Unavailable Ali, Kaila FREITAS Unavailable Unavailable Ali, Kaila FREITAS Unavailable Unavailable Ali, Kaila Unavailable Unavailable Ali, Kaila Unavailable Unavailable Ali, Kaila FREITAS Unavailable Unavailable Ali, Kaila FRIETAS Unavailable Unavailable Ali, Kaila FREITAS Unavailable Unavailable Ali, Kaila FREITAS Unavailable Unavailable Ali, Kaila FREITAS Unavailable Unavailable Ali, Kaila FREITAS Unavailable Unavailable Ali, Kaila FREITAS Unavailable Unavailable Ali, Kaila FREITAS Unavailable Unavailable Ali, Kaila FREITAS Unavailable Unavailable Ali, Kaila FREITAS Unavailable Unavailable Ali, Kaila FREITAS Unavailable Unavailable Ali, Kaila FREITAS Unavailable Unavailable Ali, Kaila FREITAS Unavailable Unavailable Ali, Kaila FREITAS Unavailable Unavailable Ali, Kaila FREITAS Unavailable Unavailable Ali, Kaila FREITAS Unavailable Unavailable Ali, Kaila FREITAS Unavailable Unavailable Ali, Kaila FREITAS Unavailable Unavailable Ali, Kaila FREITAS Unavailable Unavailable Ali, Kaila FREITAS Unavailable Unavailable Ali, Kaila FREITAS Unavailable Unavailable Ali, Kaila FREITAS Unavailable Unavailable Ali, Kaila FREITAS Unavailable Unavailable Ali, Kaila FREITAS Unavailable Unavailable Ali, Kaila FREITAS Unavailable Unavailable Ali, Kaila FREITAS Unavailable Unavailable Kaila Sanford MD Unavailable Unavailable LEFTY GARNETT MD Unavailable Unavailable LEFTY GARNETT MD Unavailable Unavailable LEFTY GARNETT MD Unavailable Unavailable LEFTY GARNETT MD Unavailable Unavailable LEFTY GARNETT MD Unavailable Unavailable LEFTY GARNETT MD Unavailable Unavailable LUIS, V JE ESCALATOR OPERATOR Unavailable Unavailable LUIS, V JE ESCALATOR OPERATOR Unavailable Unavailable LUIS, V JE ESCALATOR OPERATOR Unavailable Unavailable LUIS, V JE ESCALATOR OPERATOR Unavailable Unavailable LUIS, V JE ESCALATOR OPERATOR Unavailable Unavailable LUIS, V JE ESCALATOR OPERATOR Unavailable Unavailable LUIS, V JE ESCALATOR OPERATOR Unavailable Unavailable LUIS, V JE ESCALATOR OPERATOR Unavailable Unavailable LUIS, V JE ESCALATOR OPERATOR Unavailable Unavailable ULIS, V JE ESCALATOR OPERATOR Unavailable Unavailable LUIS, V JE ESCALATOR OPERATOR Unavailable Unavailable LUIS, V JE ESCALATOR OPERATOR Unavailable Unavailable LUIS, V JE ESCALATOR OPERATOR Unavailable Unavailable LUIS, V JE ESCALATOR OPERATOR Unavailable Unavailable LUIS, V JE ESCALATOR OPERATOR Unavailable Unavailable LUIS, V JE ESCALATOR OPERATOR Unavailable Unavailable LUIS, V JE ESCALATOR OPERATOR Unavailable Unavailable LUIS, V JE ESCALATOR OPERATOR Unavailable Unavailable LUIS, V JE ESCALATOR OPERATOR Unavailable Unavailable LUIS, V JE ESCALATOR OPERATOR Unavailable Unavailable LUIS, V JE ESCALATOR OPERATOR Unavailable Unavailable LUIS, V JE ESCALATOR OPERATOR Unavailable Unavailable LUIS, V JE ESCALATOR OPERATOR Unavailable Unavailable LUIS, V JE ESCALATOR OPERATOR Unavailable Unavailable LUIS, V JE ESCALATOR OPERATOR Unavailable Unavailable LUIS, V JE ESCALATOR OPERATOR Unavailable Unavailable LUIS, V JE ESCALATOR OPERATOR Unavailable Unavailable LUIS, V JE ESCALATOR OPERATOR Unavailable Unavailable LUIS, V JE ESCALATOR OPERATOR Unavailable Unavailable LUIS, V JE ESCALATOR OPERATOR Unavailable Unavailable LUIS, V JE ESCALATOR OPERATOR Unavailable Unavailable LUIS, V JE ESCALATOR OPERATOR Unavailable Unavailable LUIS, V JE ESCALATOR OPERATOR Unavailable Unavailable LUIS, V JE ESCALATOR OPERATOR Unavailable Unavailable LUIS, V JE ESCALATOR OPERATOR Unavailable Unavailable LUIS, V JE ESCALATOR OPERATOR Unavailable Unavailable LUIS, V JE ESCALATOR OPERATOR Unavailable Unavailable LUIS, V JE ESCALATOR OPERATOR Unavailable Unavailable LUIS, V JE ESCALATOR OPERATOR Unavailable Unavailable LUIS, V JE ESCALATOR OPERATOR Unavailable Unavailable LUIS, V JE ESCALATOR OPERATOR Unavailable Unavailable LUIS, V JE ESCALATOR OPERATOR Unavailable Unavailable LUIS, V JE ESCALATOR OPERATOR Unavailable Unavailable LUIS, V JE ESCALATOR OPERATOR Unavailable Unavailable LUIS, V JE ESCALATOR OPERATOR Unavailable Unavailable LUIS, V JE ESCALATOR OPERATOR Unavailable Unavailable LUIS, V JE ESCALATOR OPERATOR Unavailable Unavailable LUIS, V JE ESCALATOR OPERATOR Unavailable Unavailable LUIS, V JE ESCALATOR OPERATOR Unavailable Unavailable LUIS, V JE ESCALATOR OPERATOR Unavailable Unavailable LUIS, V JE ESCALATOR OPERATOR Unavailable Unavailable LUIS, V JE ESCALATOR OPERATOR Unavailable Unavailable LUIS, V JE ESCALATOR OPERATOR Unavailable Unavailable LUIS, V JE ESCALATOR OPERATOR Unavailable Unavailable LUIS, V JE ESCALATOR OPERATOR Unavailable Unavailable LUIS, V JE ESCALATOR OPERATOR Unavailable Unavailable LUIS, V JE ESCALATOR OPERATOR Unavailable Unavailable Re-disclosure Warning The records that you are about to access may contain information from federally-assisted alcohol or drug abuse programs. If such information is present, then the following federally mandated warning applies: This information has been disclosed to you from records protected by federal confidentiality rules (42 CFR part 2). The federal rules prohibit you from making any further disclosure of this information unless further disclosure is expressly permitted by the written consent of the person to whom it pertains or as otherwise permitted by 42 CFR part 2. A general authorization for the release of medical or other information is NOT sufficient for this purpose. The Federal rules restrict any use of the information to criminally investigate or prosecute any alcohol or drug abuse patient.The records that you are about to access may contain highly sensitive health information, the redisclosure of which is protected by Article 27-F of the [facility] Public Health law. If you continue you may have access to information: Regarding HIV / AIDS; Provided by facilities licensed or operated by the [facility] Office of Mental Health; or Provided by the [facility] Office for People With Developmental Disabilities. If such information is present, then the following [facility] mandated warning applies: This information has been disclosed to you from confidential records which are protected by state law. State law prohibits you from making any further disclosure of this information without the specific written consent of the person to whom it pertains, or as otherwise permitted by law. Any unauthorized further disclosure in violation of state law may result in a fine or [place] [facility] sentence or both. A general authorization for the release of medical or other information is NOT sufficient authorization for further disc losure. Family History Family Member Name Family Member Gender Family Member Status Date o f Status Description Data Source(s) Unknown Male Condition Family Member Prostate can cer [facility] Unknown Male Problem MEDENT ([facility] Unknown Unknown Problem [facility] ([facility] Unknown Unknown Problem MEDENT ([facility]) Encounters Encounter Providers Location Date Indications Data Source(s ) [place] [address] [address] 11/04/2020 12:00:00 AM EST eCW1 ([facility]) Outpatient Attender: Kaila Sanford MD Main office - [place] 11/03/2020 09:15:00 AM EST MEDENT ([facility]) Outpatient Attender: ABDON MENDOZA MD Main Office 11/02/2020 11:30:00 AM EST MEDENT ([facility]) [place] [address] [facility] [address] 11/02/2020 12:00:00 AM EST eCW1 ([facility]) [place] [address] [facility] [address] 10/28/2020 12:00:00 AM EST eCW1 ([facility]) [place] [address] [address] 10/27/2020 12:00:00 AM EST eCW1 ([facility]) [place] [address] [address] 10/26/2020 12:00:00 AM EST eCW1 ([facility]) [place] [address] [address] 10/25/2020 12:00:00 AM EST eCW1 ([facility]) [place] [address] [facility] [place] [address] 10/21/2020 12:00:00 AM EST eCW1 ([facility]) [place] [address] [facility] [address] 10/20/2020 12:00:00 AM EST eCW1 ([facility]) [place] [address] [address] 10/18/2020 12:00:00 AM EST eCW1 ([facility]) Preadmit Attender: Page PETERS 10/14/2020 02:00 :00 PM [facility] [place] [address] [facility] [address] 10/14/2020 12:00:00 AM EST eCW1 ([facility]) [place] [address] [facility] [place] [address] 10/07/2020 12:00:00 AM EST eCW1 ([facility]) [place] [address] [facility] [place] [address] 09/28/2020 12:00:00 AM EST eCW1 ([facility]) [place] [address] [facility] [facility] [address] 09/22/2020 12:00:00 AM EST eCW1 ([facility]) [place] [address] [facility] [facility] [address] 09/20/2020 12:00:00 AM EST eCW1 ([facility]) [place] [address] [address] 09/16/2020 12:00:00 AM EST eCW1 ([facility]) [place] [address] [facility] [address] 09/16/2020 12:00:00 AM EST eCW1 ([facility]) [place] [address] [facility] [address] 09/15/2020 12:00:00 AM EST eCW1 ([facility]) [place] [address] [facility] [facility] [address] 09/15/2020 12:00:00 AM EST eCW1 ([facility]) [place] [address] [facility] [address] 09/14/2020 12:00:00 AM EST eCW1 ([facility]) [place] [address] [facility] [address] 09/09/2020 12:00:00 AM EST eCW1 ([facility]) [place] [address] [facility] [address] 09/09/2020 12:00:00 AM EST eCW1 ([facility]) [place] [address] [facility] [address] 09/07/2020 12:00:00 AM EST eCW1 ([facility]) [place] [address] [facility] [address] 09/07/2020 12:00:00 AM EST eCW1 ([facility]) [place]patient [address] [facility] [facility] [address] 09/06/2020 12:00:00 AM EST eCW1 ([facility]) [place] [address] [facility] [facility] [address] 09/06/2020 12:00:00 AM EST eCW1 ([facility]) [place] [address] [facility] [address] 08/31/2020 12:00:00 AM EDT eCW1 ([facility]) [place]patient [address] [facility] [facility] [address] 08/25/2020 12:00:00 AM EDT eCW1 ([facility]) [place] [address] [facility] [address] 08/17/2020 12:00:00 AM EDT eCW1 ([facility]) [place] [address] [facility] [facility] [address] 08/10/2020 12:00:00 AM EDT eCW1 ([facility]) [place] [address] [address] 08/04/2020 12:00:00 AM EDT eCW1 ([facility]) ( in Healthcare facility) Attender: SAMEER MASTERSON MDAdmitter: LEFTY GARNETT MDConsultant: SANJU LOCK MD 06/14/2020 12:00:00 AM EDT - 06/16/2020 02:05:00 PM EDT [facility] Inpatient Attender: ALEXUS MASTERSON MDAt tender: ER PHYSICIANAdmitter: LEFTY GARNTET MD 06/13/2020 06:29:39 PM EDT [facility] Inpatient Attender: ALEXUS MASTERSON MDAt tender: LEFTY GARNETT MDAttender: ER PHYSICIANAdmitter: LEFTY GARNETT MD 06/13/2020 05:46:0 0 PM EDT - 06/16/2020 02:05:00 PM EDT RECENT FALL UTI COPD EXACERABTION [facility] RECENT FALL UTI COPD EXACERABTION Patient discharged. Emergency Attender: ER PHYSICIAN 06/13/2020 05:46:00 PM E DT [facility] Outpatient Attender: Raya Gutierrez NPReferrer: JE Hernandez NP 01/16/2020 01:09:56 PM EDT [facility] Outpatient Attender: Raya Gutierrez NPReferrer: JE Hernandez NP 11/12/2019 11:38:38 AM EST [facility] Emergency Attender: LEYDI CRISTINOAUGUST MDConsultant: ZORAIDA PINZON ES1-ES1 10/27/2019 12:56:08 AM EST - 10/27/2019 11:50:00 AM EST [facility] Patient discharged. Outpatient Attender: Melvin Strickland MD [facility] 10/22/2019 02:00:00 PM EST MEDENT ([facility]) Outpatient Attender: JE MEZA NP 10/01/2019 01:13:57 PM EST [facility] Outpatient Attender: JE MEZA NP 09/30/2019 01:54:30 PM EST [facility] Outpatient Attender: JE MEZA NP 09/30/2019 01:54:30 PM EST [facility] Outpatient Attender: JE MEZA NP 09/30/2019 01:54:30 PM EST [facility] Outpatient Attender: JE MEZA NP 09/30/2019 01:54:30 PM EST [facility] Outpatient Attender: JE MEZA NP 09/30/2019 01:54:30 PM EST [facility] Outpatient Attender: JE MEZA NP 09/30/2019 12:35:21 PM EST [facility] Inpatient Attender: Froilan Wang MDA ttender: Abdon Madden MDAttender: Saloni Drake MDAttender: MARIA GUADALUPE MULLEN MDAdmitter: Froilan Wang MD 1 06/26/2019 04:00:00 PM EDT - 07/16/2019 11:00:00 AM EDT [facility] Patient discharged. Medications Medication Brand Name Start Date Product Form Dose Route Admi nistrative Instructions Pharmacy Instructions Status Indications Reaction Description Data Source(s) 81 mg 11/15/2020 12:00:00 AM EST tablet,delayed release (DR/EC) 90 TAKE ONE TABLET BY MOUTH EVERY DAY TAKE ONE TABLET BY MOUTH EVERY DAY SOLD: 11/15/2020 [facility] 300-30 mg 11/15/2020 12:00:00 AM EST tablet 20 TAKE ONE TABLET BY MOUTH EVERY 6 HOURS NEEDED MAXIMUM DAILY DOSE = 4 TAKE ONE TABLET BY MOUTH EVERY 6 HOURS NEEDED MAXIMUM DAILY DOSE = 4 SOLD: 11/15/2020 [facility] 300 mg 11/04/2020 12:00:00 AM EST capsule 180 TAKE TWO CAPSULES BY MOUTH EVERY DAY TAKE TWO CAPSULES BY MOUTH EVERY DAY SOLD: 11/08/2020 [facility] Carbidopa 25 MG / Levodopa 100 MG Oral Tablet Carbidopa-Levo dopa 11/03/2020 12:00:00 AM EST ORAL active M EDENT ([facility]) 25-100 mg 11/03/2020 12:00:00 AM EST tablet 120 TAKE ONE TABLET BY MOUTH FOUR TIMES A DAY AT 9AM, NOON, 3PM, AND 8PM MAXIMUM DAILY DOSE = 4 TABLETS TAKE ONE TABLET BY MOUTH FOUR TIMES A DAY AT 9AM, NOON, 3PM, AND 8PM MAXIMUM DAILY DOSE = 4 TABLETS SOLD: 11/03/2020 [facility] Ascorbic Acid 226 MG / Beta Carotene 143 20 UNT / cuprous oxide 0.8 MG / dl-alpha tocopheryl acetate 200 UNT / Zinc Oxide 34.8 MG Oral Capsule [PreserVision] [facility]er[facility]ision [facility] - [facility]erVision AREDS - 11/02/2020 12:00:00 AM EST active PreserVision AREDS - eCW1 ([facility]) Ascorbic Acid 226 MG / Beta Carotene 143 20 UNT / cuprous oxide 0.8 MG / dl-alpha tocopheryl acetate 200 UNT / Zinc Oxide 34.8 MG Oral Capsule [PreserVision] PreserVision AREDS - PreserVision AREDS - 11/02/2020 12:00:00 AM EST active [facility]erVision AREDS - eCW1 ([facility]) Rosuvastatin calcium 40 MG Oral Tablet ROSUVASTATIN CALCIUM 11/02/2020 12:00:00 AM EST tablet 90 TAKE ONE TABLET BY MOUTH BÁRBARA LY AT BEDTIME TAKE ONE TABLET BY MOUTH DAILY AT BEDTIME SOLD: 11/03/2020 [facility] 5 mg 11/02/2020 12:00:00 AM EST tablet 45 TAKE 1/2 TABLET BY MOUTH EVERY DAY TAKE 1/2 TABLET BY MOUTH EVERY DAY SOLD: 11/03/2020 [facility] 24-26 mg 11/02/2020 12:00:00 AM EST tablet 60 TAKE ONE TABLET BY MOUTH TWICE A DAY TAKE ONE TABLET BY MOUTH TWICE A DAY SOLD: 11/03/2020 [facility] sacubitril 24 MG / valsartan 26 MG Oral Tablet [Entresto] En tresto 11/02/2020 12:00:00 AM EST ORAL active M EDENT ([facility]) Bisoprolol Fumarate 5 MG Oral Tablet Bisoprolol Fumarate 12:00:00 AM EST ORAL active [facility] ([facility] Rosuvastatin calcium 40 MG Oral Tablet Rosuvastatin Calcium 11/02/2020 12:00:00 AM EST ORAL active [facility] ([facility]) L-Methylfolate Calcium 11/01/2020 12:00:00 AM EST active MEDENT ([facility]) Carbidopa 25 MG / Levodopa 100 MG Oral Tablet Carbidopa-Levo dopa 11/01/2020 12:00:00 AM EST ORAL active M EDENT ([facility]) 500 mcg 11/01/2020 12:00:00 AM EST tablet 90 TAKE ONE TABLET BY MOUTH EVERY DAY TAKE ONE TABLET BY MOUTH EVERY DAY SOLD: 11/03/2020 [facility] Digoxin 0.125 MG Oral Tablet 125 mcg (0.125 mg) DIGOXIN 10/28/2020 12:00:00 AM EST tablet 12 TAKE ONE TABLET BY MOUTH DIRECTED SUNDAY, SUNDAY, AND SUNDAY TAKE ONE TABLET BY MOUTH DIRECTED SUNDAY, SUNDAY , AND SUNDAY SOLD: 11/03/2020 [facility] 1,250 mcg (50,000 unit) 10/22/2020 12:00:00 AM EST capsule 3 TAKE 1 CAPSULE BY MOUTH ONCE A MONTH TAKE 1 CAPSULE BY MOUTH ONCE A MONTH SOLD: 10/25/2020 [facility] 40 mg 10/22/2020 12:00:00 AM EST capsule,delayed release (DR/EC) 90 TAKE 1 CAPSULE BY MOUTH 30 MINUTES BEFORE MORNING MEAL TAKE 1 CAPSULE BY MOUTH 30 MINUTES BEFORE MORNING MEAL SOLD: 10/25/2020 [facility] 20 mEq 10/21/2020 12:00:00 AM EST tablet,ER particles/cry stals 55 TAKE ONE TABLET BY MOUTH WITH FOOD SUNDAY THROUGH SUNDAY AND SUNDAY TAKE ONE TABLET BY MOUTH WITH FOOD SUNDAY THROUGH SUNDAY AND SUNDAY SOLD: 10/25/2020 [facility] 650 mg 10/15/2020 12:00:00 AM EST tablet extended release 280 TAKE TWO TABLETS BY MOUTH EVERY 8 HOURS NEEDED TAKE TWO TABLETS BY MOUTH EVERY 8 HOURS NEEDED SOLD: 10/17/2020 [facility] 20 mg 10/14/2020 12:00:00 AM EST tablet 45 TAKE ONE-HALF TABLET BY MOUTH EVERY MORNING TAKE ONE-HALF TABLET BY MOUTH EVERY MORNING SOLD: 10/17/2020 [facility] 100 mg 10/14/2020 12:00:00 AM EST tablet 90 TAKE ONE TABLET BY MOUTH EVERY DAY TAKE ONE TABLET BY MOUTH EVERY DAY SOLD: 10/17/2020 [facility] 100 mg 10/14/2020 12:00:00 AM EST tablet sustained-releas e 12 hr 90 TAKE ONE TABLET BY MOUTH EVERY DAY IN THE MORNING TAKE ONE TABLET BY MOUTH EVERY DAY IN THE MORNING SOLD: 10/17/2020 [facility] 0.5 mg 10/14/2020 12:00:00 AM EST tablet 90 TAKE ONE TABLET BY MOUTH AT BEDTIME AND MAY TAKE AN ADDITIONAL DOSE ONCE A DAY NEEDED UP TO THREE TIMES A DAY MAX=3TABS/DAY TAKE ONE TABLET BY MOUTH AT BEDTIME AND MAY TAKE AN ADDITIONAL DOSE ONCE A DAY NEEDED UP TO THREE TIMES A DAY MAX=3TABS/DAY SOLD: 10/17/2020 [facility] 25-100 mg 10/06/2020 12:00:00 AM EST tablet 120 TAKE ONE TABLET BY MOUTH FOUR TIMES A DAY TAKE ONE TABLET BY MOUTH FOUR TIMES A DAY SOLD: 10/10/2020 [facility] 8 HR Acetaminophen 650 MG Extended Release Oral Tablet [Tyle nol] Tylenol 8 Hour 10/04/2020 12:00:00 AM EST ORAL active [facility] ([facility]) Vitamin B 12 0.5 MG Oral Tablet Vitamin B12 10/04/2020 12:00:00 AM EST ORAL active [facility] ([facility] 200 ACTUAT Albuterol 0.09 MG/ACTUAT Metered Dose Inhal er [Ventolin] Ventolin HFA 10/04/2020 12:00:00 AM EST RESPIRATORY active [facility] ([facility]) 12 HR Bupropion Hydrochloride 100 MG Extended Release Oral Tablet [Wellbutrin] Wellbutrin SR 10/04/2020 12:00:00 AM EST ORAL active [facility] ([facility]) sacubitril 24 MG / valsartan 26 MG Oral Tablet [Entresto] En tresto 10/04/2020 12:00:00 AM EST ORAL completed [facility] ([facility]) 0.3 ML Epinephrine 1 MG/ML Auto-Injector [Epipen] Epipen 2-P ak 10/04/2020 12:00:00 AM EST active M EDENT ([facility]) gabapentin 300 MG Oral Capsule Gabapentin 10/04/2020 12:00:00 AM EST ORAL active [facility] ([facility]) Omeprazole 40 MG Delayed Release Oral Capsule Omeprazole 10/04/2020 12:00:00 AM EST ORAL active [facility] ([facility]) Nitroglycerin 0.4 MG Sublingual Tablet Nitroglycerin 0 12:00:00 AM EST SUBLINGUAL active MEDEN T ([facility]) Potassium Chloride 20 MEQ Extended Release Oral Tablet Potas sium Chloride ER 10/04/2020 12:00:00 AM EST ORAL completed [facility] ([facility]) Preservision Areds 2 10/04/2020 12:00:00 AM EST ORAL active [facility] ([facility]) torsemide 20 MG Oral Tablet Torsemide 10/04/2020 12:00:00 AM EST ORAL active [facility] ([facility]) Calcium Carbonate 500 MG Chewable Tablet [Tums] Tums 10/04/2020 12:00:00 AM EST ORAL active [facility] ( [facility]) Sertraline 100 MG Oral Tablet Sertraline HCL 10/04/2020 12:00:[address] ORAL active [facility] ([facility]) Clonazepam 0.5 MG Oral Tablet Clonazepam 10/04/2020 12:00:00 AM EST ORAL active [facility] ([facility]) Ergocalciferol 19494 UNT Oral Capsule Vitamin D (Ergocalcife rol) 10/04/2020 12:00:00 AM EST ORAL active M EDENT ([facility]) Aspirin 81 MG Delayed Release Oral Tablet Aspirin 10/04/2020 1 2:00:00 AM EST ORAL active [facility] ([facility]) Digoxin 0.125 MG Oral Tablet [Digox] Digox 10/04/2020 12:00:00 AM EST ORAL completed [facility] ([facility] Digoxin 0.125 MG Oral Tablet 125 mcg (0.125 mg) DIGOXIN 09/22/2020 12:00:00 AM EST tablet 12 TAKE ONE TABLET BY MOUTH EVERY DAY AND SUNDAY DIRECTED TAKE ONE TABLET BY MOUTH EVERY DAY AND SUNDAY DIRECTED SOLD: 09/24/2020 [facility] 0.5 mg 09/15/2020 12:00:00 AM EST tablet 90 TAKE ONE TABLET BY MOUTH AT BEDTIME, MAY TAKE AN ADDITIONAL DOSE TWICE DAILY NEEDED FOR ANXIETY MAXIMUM DAILY DOSE = 3 TABLETS TAKE ONE TABLET BY MOUTH AT BEDTIME, MAY TAKE AN ADDITIONAL DOSE TWICE DAILY NEEDED FOR ANXIETY MAXIMUM DAILY DOSE = 3 TABLETS SOLD: 09/15/2020 [facility] Ciprofloxacin 500 MG Oral Tablet [Cipro] Cipro 500 MG Cipro 500 MG 09/09/2020 12:00:00 AM EST 1.0 {tablet} active Ci pro 500 MG eCW1 ([facility]) Ciprofloxacin 500 MG Oral Tablet [Cipro] Cipro 500 MG Cipro 500 MG 09/09/2020 12:00:00 AM EST 1.0 {tablet} suspended Cipro 500 MG eCW1 ([facility]) Ciprofloxacin 500 MG Oral Tablet [Cipro] Cipro 500 MG Cipro 500 MG 09/09/2020 12:00:00 AM EST 1.0 {tablet} active Ci pro 500 MG eCW1 ([facility]) Ciprofloxacin 500 MG Oral Tablet [Cipro] Cipro 500 MG Cipro 500 MG 09/09/2020 12:00:00 AM EST 1.0 {tablet} suspended Cipro 500 MG eCW1 ([facility]) Ciprofloxacin 500 MG Oral Tablet [Cipro] Cipro 500 MG Cipro 500 MG 09/09/2020 12:00:00 AM EST 1.0 {tablet} active Ci pro 500 MG eCW1 ([facility]) Ciprofloxacin 500 MG Oral Tablet [Cipro] Cipro 500 MG Cipro 500 MG 09/09/2020 12:00:00 AM EST 1.0 {tablet} suspended Cipro 500 MG eCW1 ([facility]) Ciprofloxacin 500 MG Oral Tablet [Cipro] Cipro 500 MG Cipro 500 MG 09/09/2020 12:00:00 AM EST 1.0 {tablet} suspended Cipro 500 MG eCW1 ([facility]) Ciprofloxacin 500 MG Oral Tablet [Cipro] Cipro 500 MG Cipro 500 MG 09/09/2020 12:00:00 AM EST 1.0 {tablet} suspended Cipro 500 MG eCW1 ([facility]) Ciprofloxacin 500 MG Oral Tablet [Cipro] Cipro 500 MG Cipro 500 MG 09/09/2020 12:00:00 AM EST 1.0 {tablet} active Ci pro 500 MG eCW1 ([facility]) Ciprofloxacin 500 MG Oral Tablet [Cipro] Cipro 500 MG Cipro 500 MG 09/09/2020 12:00:00 AM EST 1.0 {tablet} active Ci pro 500 MG eCW1 ([facility]) Ciprofloxacin 500 MG Oral Tablet [Cipro] Cipro 500 MG Cipro 500 MG 09/09/2020 12:00:00 AM EST 1.0 {tablet} active Ci pro 500 MG eCW1 ([facility]) Ciprofloxacin 250 MG Oral Tablet [Cipro] Cipro 250 MG Cipro 250 MG 09/06/2020 12:00:00 AM EST 1.0 {tablet} suspended Cipro 250 MG eCW1 ([facility]) Ciprofloxacin 250 MG Oral Tablet [Cipro] Cipro 250 MG Cipro 250 MG 09/06/2020 12:00:00 AM EST 1.0 {tablet} active Ci pro 250 MG eCW1 ([facility]) Ciprofloxacin 250 MG Oral Tablet [Cipro] Cipro 250 MG Cipro 250 MG 09/06/2020 12:00:00 AM EST 1.0 {tablet} active Ci pro 250 MG eCW1 ([facility]) Ciprofloxacin 250 MG Oral Tablet [Cipro] Cipro 250 MG Cipro 250 MG 09/06/2020 12:00:00 AM EST 1.0 {tablet} active Ci pro 250 MG eCW1 ([facility]) Ciprofloxacin 250 MG Oral Tablet [Cipro] Cipro 250 MG Cipro 250 MG 09/06/2020 12:00:00 AM EST 1.0 {tablet} suspended Cipro 250 MG eCW1 ([facility]) 250 mg 09/06/2020 12:00:00 AM EST tablet 10 TAKE ONE TABLET BY MOUTH EVERY 12 HOURS TAKE ONE TABLET BY MOUTH EVERY 12 HOURS SOLD: 09/06/2020 [facility] Ciprofloxacin 250 MG Oral Tablet [Cipro] Cipro 250 MG Cipro 250 MG 09/06/2020 12:00:00 AM EST 1.0 {tablet} active Ci pro 250 MG eCW1 ([facility]) Ciprofloxacin 250 MG Oral Tablet [Cipro] Cipro 250 MG Cipro 250 MG 09/06/2020 12:00:00 AM EST 1.0 {tablet} active Ci pro 250 MG eCW1 ([facility]) Ciprofloxacin 250 MG Oral Tablet [Cipro] Cipro 250 MG Cipro 250 MG 09/06/2020 12:00:00 AM EST 1.0 {tablet} suspended Cipro 250 MG eCW1 ([facility]) Ciprofloxacin 250 MG Oral Tablet [Cipro] Cipro 250 MG Cipro 250 MG 09/06/2020 12:00:00 AM EST 1.0 {tablet} active Ci pro 250 MG eCW1 ([facility]) Ciprofloxacin 250 MG Oral Tablet [Cipro] Cipro 250 MG Cipro 250 MG 09/06/2020 12:00:00 AM EST 1.0 {tablet} active Ci pro 250 MG eCW1 ([facility]) Ciprofloxacin 250 MG Oral Tablet [Cipro] Cipro 250 MG Cipro 250 MG 09/06/2020 12:00:00 AM EST 1.0 {tablet} suspended Cipro 250 MG eCW1 ([facility]) Ciprofloxacin 250 MG Oral Tablet [Cipro] Cipro 250 MG Cipro 250 MG 09/06/2020 12:00:00 AM EST 1.0 {tablet} suspended Cipro 250 MG eCW1 ([facility]) Ciprofloxacin 250 MG Oral Tablet [Cipro] Cipro 250 MG Cipro 250 MG 09/06/2020 12:00:00 AM EST 1.0 {tablet} active Ci pro 250 MG eCW1 ([facility]) Ciprofloxacin 250 MG Oral Tablet [Cipro] Cipro 250 MG Cipro 250 MG 09/06/2020 12:00:00 AM EST 1.0 {tablet} active Ci pro 250 MG eCW1 ([facility]) Rosuvastatin calcium 10 MG Oral Tablet [Crestor] Crestor 10 MG Crestor 10 MG 08/25/2020 12:00:00 AM EDT 1.0 {tablet} active Crestor 10 MG eCW1 ([facility]) Rosuvastatin calcium 10 MG Oral Tablet [Crestor] Crestor 10 MG Crestor 10 MG 08/25/2020 12:00:00 AM EDT 1.0 {tablet} active Crestor 10 MG eCW1 ([facility]) Rosuvastatin calcium 10 MG Oral Tablet [Crestor] Crestor 10 MG Crestor 10 MG 08/25/2020 12:00:00 AM EDT 1.0 {tablet} active Crestor 10 MG eCW1 ([facility]) Rosuvastatin calcium 10 MG Oral Tablet [Crestor] Crestor 10 MG Crestor 10 MG 08/25/2020 12:00:00 AM EDT 1.0 {tablet} active Crestor 10 MG eCW1 ([facility]) Rosuvastatin calcium 10 MG Oral Tablet [Crestor] Crestor 10 MG Crestor 10 MG 08/25/2020 12:00:00 AM EDT 1.0 {tablet} active Crestor 10 MG eCW1 ([facility]) Rosuvastatin calcium 10 MG Oral Tablet [Crestor] Crestor 10 MG Crestor 10 MG 08/25/2020 12:00:00 AM EDT 1.0 {tablet} active Crestor 10 MG eCW1 ([facility]) Rosuvastatin calcium 10 MG Oral Tablet [Crestor] Crestor 10 MG Crestor 10 MG 08/25/2020 12:00:00 AM EDT 1.0 {tablet} active Crestor 10 MG eCW1 ([facility]) Rosuvastatin calcium 10 MG Oral Tablet [Crestor] Crestor 10 MG Crestor 10 MG 08/25/2020 12:00:00 AM EDT 1.0 {tablet} active Crestor 10 MG eCW1 ([facility]) Rosuvastatin calcium 10 MG Oral Tablet [Crestor] Crestor 10 MG Crestor 10 MG 08/25/2020 12:00:00 AM EDT 1.0 {tablet} active Crestor 10 MG eCW1 ([facility]) Rosuvastatin calcium 10 MG Oral Tablet [Crestor] Crestor 10 MG Crestor 10 MG 08/25/2020 12:00:00 AM EDT 1.0 {tablet} active Crestor 10 MG eCW1 ([facility]) Rosuvastatin calcium 10 MG Oral Tablet [Crestor] Crestor 10 MG Crestor 10 MG 08/25/2020 12:00:00 AM EDT 1.0 {tablet} active Crestor 10 MG eCW1 ([facility]) Rosuvastatin calcium 10 MG Oral Tablet [Crestor] Crestor 10 MG Crestor 10 MG 08/25/2020 12:00:00 AM EDT 1.0 {tablet} active Crestor 10 MG eCW1 ([facility]) Rosuvastatin calcium 10 MG Oral Tablet [Crestor] Crestor 10 MG Crestor 10 MG 08/25/2020 12:00:00 AM EDT 1.0 {tablet} active Crestor 10 MG eCW1 ([facility]) Rosuvastatin calcium 10 MG Oral Tablet [Crestor] Crestor 10 MG Crestor 10 MG 08/25/2020 12:00:00 AM EDT 1.0 {tablet} active Crestor 10 MG eCW1 ([facility]) Rosuvastatin calcium 10 MG Oral Tablet [Crestor] Crestor 10 MG Crestor 10 MG 08/25/2020 12:00:00 AM EDT 1.0 {tablet} active Crestor 10 MG eCW1 ([facility]) Rosuvastatin calcium 10 MG Oral Tablet [Crestor] Crestor 10 MG Crestor 10 MG 08/25/2020 12:00:00 AM EDT 1.0 {tablet} active Crestor 10 MG eCW1 ([facility]) Rosuvastatin calcium 10 MG Oral Tablet [Crestor] Crestor 10 MG Crestor 10 MG 08/25/2020 12:00:00 AM EDT 1.0 {tablet} active Crestor 10 MG eCW1 ([facility]) Rosuvastatin calcium 10 MG Oral Tablet [Crestor] Crestor 10 MG Crestor 10 MG 08/25/2020 12:00:00 AM EDT 1.0 {tablet} active Crestor 10 MG eCW1 ([facility]) Rosuvastatin calcium 10 MG Oral Tablet [Crestor] Crestor 10 MG Crestor 10 MG 08/25/2020 12:00:00 AM EDT 1.0 {tablet} active Crestor 10 MG eCW1 ([facility]) Rosuvastatin calcium 10 MG Oral Tablet [Crestor] Crestor 10 MG Crestor 10 MG 08/25/2020 12:00:00 AM EDT 1.0 {tablet} active Crestor 10 MG eCW1 ([facility]) Rosuvastatin calcium 10 MG Oral Tablet [Crestor] Crestor 10 MG Crestor 10 MG 08/25/2020 12:00:00 AM EDT 1.0 {tablet} active Crestor 10 MG eCW1 ([facility]) Rosuvastatin calcium 10 MG Oral Tablet [Crestor] Crestor 10 MG Crestor 10 MG 08/25/2020 12:00:00 AM EDT 1.0 {tablet} active Crestor 10 MG eCW1 ([facility]) Rosuvastatin calcium 10 MG Oral Tablet [Crestor] Crestor 10 MG Crestor 10 MG 08/25/2020 12:00:00 AM EDT 1.0 {tablet} active Crestor 10 MG eCW1 ([facility]) Rosuvastatin calcium 10 MG Oral Tablet [Crestor] Crestor 10 MG Crestor 10 MG 08/25/2020 12:00:00 AM EDT 1.0 {tablet} active Crestor 10 MG eCW1 ([facility]) Rosuvastatin calcium 10 MG Oral Tablet [Crestor] Crestor 10 MG Crestor 10 MG 08/25/2020 12:00:00 AM EDT 1.0 {tablet} active Crestor 10 MG eCW1 ([facility]) Rosuvastatin calcium 10 MG Oral Tablet [Crestor] Crestor 10 MG Crestor 10 MG 08/25/2020 12:00:00 AM EDT 1.0 {tablet} active Crestor 10 MG eCW1 ([facility]) Rosuvastatin calcium 10 MG Oral Tablet [Crestor] Crestor 10 MG Crestor 10 MG 08/25/2020 12:00:00 AM EDT 1.0 {tablet} active Crestor 10 MG eCW1 ([facility]) Oxygen UNK 08/04/2020 12:00:00 AM EDT active Oxygen eCW1 ([facility]) Oxygen UNK 08/04/2020 12:00:00 AM EDT active Oxygen eCW1 ([facility]) Oxygen UNK 08/04/2020 12:00:00 AM EDT active Oxygen eCW1 ([facility]) Oxygen UNK 08/04/2020 12:00:00 AM EDT active Oxygen eCW1 ([facility]) Oxygen UNK 08/04/2020 12:00:00 AM EDT active Oxygen eCW1 ([facility]) Oxygen UNK 08/04/2020 12:00:00 AM EDT active Oxygen eCW1 ([facility]) Oxygen UNK 08/04/2020 12:00:00 AM EDT active Oxygen eCW1 ([facility]) Oxygen UNK 08/04/2020 12:00:00 AM EDT active Oxygen eCW1 ([facility]) Oxygen UNK 08/04/2020 12:00:00 AM EDT active Oxygen eCW1 ([facility]) Oxygen UNK 08/04/2020 12:00:00 AM EDT active Oxygen eCW1 ([facility]) Oxygen UNK 08/04/2020 12:00:00 AM EDT active Oxygen eCW1 ([facility]) Oxygen UNK 08/04/2020 12:00:00 AM EDT active Oxygen eCW1 ([facility]) Oxygen UNK 08/04/2020 12:00:00 AM EDT active Oxygen eCW1 ([facility]) Oxygen UNK 08/04/2020 12:00:00 AM EDT active Oxygen eCW1 ([facility]) Oxygen UNK 08/04/2020 12:00:00 AM EDT active Oxygen eCW1 ([facility]) Oxygen UNK 08/04/2020 12:00:00 AM EDT active Oxygen eCW1 ([facility]) Oxygen UNK 08/04/2020 12:00:00 AM EDT active Oxygen eCW1 ([facility]) Oxygen UNK 08/04/2020 12:00:00 AM EDT active Oxygen eCW1 ([facility]) Oxygen UNK 08/04/2020 12:00:00 AM EDT active Oxygen eCW1 ([facility]) Oxygen UNK 08/04/2020 12:00:00 AM EDT active Oxygen eCW1 ([facility]) Oxygen UNK 08/04/2020 12:00:00 AM EDT active Oxygen eCW1 ([facility]) Oxygen UNK 08/04/2020 12:00:00 AM EDT active Oxygen eCW1 ([facility]) Oxygen UNK 08/04/2020 12:00:00 AM EDT active Oxygen eCW1 ([facility]) Oxygen UNK 08/04/2020 12:00:00 AM EDT active Oxygen eCW1 ([facility]) Oxygen UNK 08/04/2020 12:00:00 AM EDT active Oxygen eCW1 ([facility]) Oxygen UNK 08/04/2020 12:00:00 AM EDT active Oxygen eCW1 ([facility]) Oxygen UNK 08/04/2020 12:00:00 AM EDT active Oxygen eCW1 ([facility]) Oxygen UNK 08/04/2020 12:00:00 AM EDT active Oxygen eCW1 ([facility]) Oxygen UNK 08/04/2020 12:00:00 AM EDT active Oxygen eCW1 ([facility]) Oxygen UNK 08/04/2020 12:00:00 AM EDT active Oxygen eCW1 ([facility]) Morphine Sulfate (PF) injection 2 mg [id number] 10/27/2019 05:30: 00 AM EST 2 mg Intravenous completed 2 mg, In travenous, Once, 10/27/19 at 0530, For 1 dose [facility] Medication administered onsite Cyclobenzaprine hydrochloride 10 MG Oral Tablet cyclobenzaprine (FLEXERIL) 10 MG tablet cyclobenzaprine (FLEXERIL) 10 MG tablet 08/07/2018 12:00:00 AM E DT 10 mg Oral aborted Take 1 tab let (10 mg total) by mouth 3 (three) times a day as needed for muscle spasms [facility] duloxetine 60 MG Delayed Release Oral Ca psule DULoxetine (CYMBALTA) 60 MG capsule DULoxetine (CYMBALTA) 60 MG capsule 60 mg Oral aborted Take 60 mg by mouth every evening [facility] carvedilol 3.125 MG Oral Tablet carvedilol (COREG) 3.1 25 MG tablet carvedilol (COREG) 3.125 MG tablet 3.125 mg Oral aborted Take 3.125 mg by mouth 2 (two) times a day [facility] ferrous gluconate 324 MG Oral Tablet ferrous gluconate (FERGON) 324 MG tablet ferrous gluconate (FERGON) 324 MG tablet 324 mg Oral aborted Take 324 mg by mouth daily [facility] Vancomycin HCl 50 MG/ML SOLR [id number] 125 mg Oral ab orted Take 125 mg by mouth 3 times weekly on Sunday, Sunday, and Sunday for 4 weeks (07/22/18 - 09/16/18) [facility] Famotidine 20 MG Oral Tablet famotidine (PEPCID) 20 MG tablet famotidine (PEPCID) 20 MG tablet 20 mg Oral aborted Take 20 mg by mouth daily as needed for heartburn [facility] 60 ACTUAT Budesonide 0.16 MG/ACTUAT / fo rmoterol fumarate 0.0045 MG/ACTUAT Metered Dose Inhaler budesonide-formoterol (SYMBICORT) 160-4.5 MCG/ACT inhaler budesonide-formoterol (SYMBICORT) 160-4.5 MCG/ACT inhaler 2 {puff} Inhalation aborted Inhale 2 puffs 2 (t wo) times a day [facility] Calcium Carbonate 550 MG / Magnesium Hyd roxide 110 MG Chewable Tablet Ca Carbonate-Mag Hydroxide (ROLAIDS) 550-110 MG CHEW Ca Carbonate-Mag Hydroxide (ROLAIDS) 550-110 MG CHEW Oral aborted Chew 1-2 tablets 2 (two) times a day as needed (for indigestion/heartburn) [facility] A-[id number]-[id number] (DEPLIN 7.5 PO) 1 {tbl} Oral aborted Take 1 tablet by mouth daily [facility] 1 ML Vitamin B 12 1 MG/ML Prefilled Syri nge cyanocobalamin 1000 MCG/ML injection cyanocobalamin 1000 MCG/ML injection 500 ug Intramuscular aborted Inject 500 mcg into the shoulder, thigh, or buttocks every 30 (thirty) days [facility] Acetaminophen 325 MG / Hydrocodone Marko trate 5 MG Oral Tablet HYDROcodone- acetaminophen (NORCO) 5-325 MG per tablet HYDROcodone-acetaminophen (NORCO) 5- 325 MG per tablet 1 {tbl} Oral aborted Take 1 tablet by mouth 3 (three) times a day [facility] Acetaminophen 325 MG / Hydrocodone Marko trate 5 MG Oral Tablet HYDROcodone- acetaminophen (NORCO) 5-325 MG per tablet HYDROcodone-acetaminophen (NORCO) 5- 325 MG per tablet 1 {tbl} Oral aborted Take 1 tablet by mouth daily as needed for pain [facility] MELATONIN PO Oral aborted Take by m outh [facility] 24 HR Nicotine 0.292 MG/HR Transdermal Patch nicotine (NICODERM CQ) 7 MG/24HR nicotine (NICODERM CQ) 7 MG/24HR 1 {patch} Transdermal aborted Place 1 patch on the skin daily [facility] Clonazepam 0.5 MG Oral Tablet clonazePAM (KLONOPIN) 0. 5 MG tablet clonazePAM (KLONOPIN) 0.5 MG tablet 0.5 mg Oral aborted Take 0.5 mg by mouth 2 (two) times a day as needed for anxiety [facility] Clonazepam 0.5 MG Oral Tablet clonazePAM (KLONOPIN) 0. 5 MG tablet clonazePAM (KLONOPIN) 0.5 MG tablet 0.5 mg Oral aborted Take 0.5 mg by mouth 3 (three) times a day [facility] Insurance Providers Payer name Policy type / Coverage type Policy ID Covered democrat ID Covered democrat's relationship to gomez Policy Gomez Plan Information MEDICARE [id number] SP [id number] EMEDNY [id number] SP [id number] MEDICAID M [id number] S [id number] MEDICARE C [id number] S [id number] [id number] MEDICAID [id number] S [id number] [place] [id number] S [id number] [place]IC[place] [id number] S [id number] MEDICARE [id number] SP [id number] A O UNAVAILABLE UNAVAILA BLE MEDICARE HEALTH MAINTENANCE ORGANIZATION HEA [id number] S [id number] MEDICAID GME [id number] S [id number] MEDICAID HEALTH MAINTENANCE ORGANIZATION HEA [id number] S [id number] MEDICARE HE [id number] S [id number] [id number] MEDICARE HEALTH MAINTENANCE ORGANIZATION HEA [id number] S [id number] MEDICARE HEALTH MAINTENANCE ORGANIZATION HEA "" S "" MEDICARE MCA [id number] S [id number] [id number] MEDICARE MCA [id number] S [id number] [id number] [place] [id number] Ivelisse [id number] MEDICAID [id number] [place] [id number] MEDICAID [id number] Ivelisse [id number] MEDICARE [id number] Ivelisse [id number] A Medicaid [facility] S D [id number] SELF [id number] PACE Medicare N [id number] SELF [id number] Pace Commercial [id number] Self [id number] MEDICARE PI PI MEDICAID PI PI Pace CN[place] Commercial [id number] Self [id number] PACE Medicare N [id number] SELF [id number] PACE Medicare N [id number] SELF [id number] Pace Commercial [id number] Self [id number] Medicare C [id number] SELF [id number] U10 [place] CN[place] PI PI PACE CNY [id number] Ivelisse [id number] WELLCARE MEDICARE [id number] Ivelisse [id number] WELLCARE MEDICARE [id number] Ivelisse [id number] UNAVAILABLE UNAVAILA BLE MEDICAID HEA [id number] S [id number] MEDICARE HEALTH MAINTENANCE ORGANIZATION HEA [id number] S [id number] [place] Medigap Part B [id number] Self [id number] Pace Medigap Part B [id number] Self [id number] Medicare [facility] Medicare Primary [id number] Self [id number] MEDICARE HEALTH MAINTENANCE ORGANIZATION HEA UNAVAILABLE S UNAVAILABLE [place] Medigap Part B [id number] Self [id number] Pace Medigap Part B [id number] Self [id number] Medicare [facility] Medicare Primary [id number] Self [id number] 18 [id number] Medicaid [id number] Medicare [facility] Division [id number] 18 [id number] WELLCARE MEDICARE [id number] Ivelisse [id number] Vna Homecare Options [facility] Medigap Part B Self [place] Self MEDICAID W [id number] S [id number] MEDICARE M [id number] S [id number] WELLCARE MEDICAID DUAL I [id number] Self [id number] WELLCARE MEDICARE HMO G [id number] Self [id number] MEDICARE M [id number] S [id number] MEDICAID W [id number] S [id number] O [place] O [id number] S [id number] WELLCARE MEDICAID DUAL I [id number] Self [id number] MEDICAID M [id number] Self [id number] MEDICAID MANAGED CARE GENERIC I [id number] Self [id number] MEDICARE HE O [id number] S [id number] [facility] MCARE COMPLETE O [id number] S [id number] MEDICAID GME W [id number] S [id number] MEDICAID W [id number] S [id number] [facility] MEDICARE COMPLET O [id number] S [id number] MEDICAID REF AMBULAT W [id number] S [id number] Self [id number] Self [id number] Problems, Conditions, and Diagnoses Code Display Name Description Problem Type Effective Dates Data Source(s) 232724562 Low back pain Low back pain Problem 11/03/2020 12:00:00 AM EST [facility]ENT ([facility], ) [id number] Spondylolysis Spondylolysis Problem 11/03/2020 12:00:00 AM EST [facility] ([facility], ) 368881611 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 Problem 11/03/2020 12:00:00 AM EST [facility] ([facility], ) [id number] Neck pain Neck pain Problem 11/03/2020 12:00:00 AM ES T MEDENT ([facility], ) 62293247 Parkinson's disease Parkinson's disease Problem 1 12:00:00 AM EST EMMANUELLE ([facility], ) H35.30 [id number] Macular degeneration, unspecifie d laterality, unspecified type Problem 08/25/2020 12:00:00 AM EDT eCW1 ([facility]) K21.9 [id number] Gastroesophageal ref lux disease, esophagitis presence not specified Problem 08/04/2020 12:00:00 AM EDT eCW1 ([facility]) J44.9 [id number] Chronic obstructive pulmonary di sease, unspecified COPD type Problem 08/04/2020 12:00:00 AM EDT eCW1 ([facility]) I48.91 [id number] Atrial fibrillation, unspecified type Pro blem 08/04/2020 12:00:00 AM EDT eCW1 ([facility]) G70.00 [id number] Myasthenia gravis Problem 08/04/2020 12:00:0 0 AM EDT eCW1 ([facility]) F41.8 [id number] Depression with anxiety Problem 08/04/2020 1 2:00:00 AM EDT eCW1 ([facility]) 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 R29.6 Frequent falls Frequent falls [id number] 10/27/2019 12:00: 00 AM [facility] G62.9 Peripheral neuropathy Peripheral neuropathy [id number] 10/27/2019 12:00:00 AM [facility] N18.3 Stage 3 chronic kidney disease Stage 3 chronic kidney disease [id number] 10/27/2019 12:00:00 AM [facility] M79.7 Fibromyalgia Fibromyalgia [id number] 10/27/2019 12:00:00 A M [facility] E11.9 Type 2 diabetes mellitus without complic ation Type 2 diabetes mellitus without complication [id number] 10/27/2019 12:00:00 AM [facility] R60.9 Edema, unspecified EDEMA, UNSPECIFIED Diagnosis 08/2020 02:00:00 PM [facility] S70.01XA Contusion of right hip, initial encounte r Contusion of right hip, initial encounte Diagnosis 10/27/2019 12:56:08 AM [facility] R53.1 Weakness Weakness Diagnosis 10/27/2019 12:56:08 AM ES T [facility] R42 Dizziness and giddiness Dizziness and giddiness Diagno sis 10/27/2019 12:56:08 AM [facility] R29.6 Repeated falls Repeated falls Diagnosis 10/27/2019 12:56: 08 AM [facility] Surgeries/Procedures Procedure Description Date Indications Data Source(s) FALLS RISK ASSESSMENT DOCUMENTED 11/03/2020 12:00:00 A M VIJI HANDLEY ([facility]) ECG ROUTINE ECG W/LEAST 12 LDS W/I&R 11/02/2020 12:00: 00 AM EST MED[facility] ([facility]) Icm - Interrogation In Person 07/06/2020 12:00:00 AM E DT MEDENT ([facility]) Electrocardiogram Interpretation & Report Only 020 12:00:00 AM EDT MEDENT ([facility]) Icm - Interrogation In Person 06/01/2020 12:00:00 AM E DT MEDENT ([facility]) Icd Interrogation (Remote) internet 05/24/2020 12:00:0 0 AM EDT MEDENT ([facility]) Icd/PM Remote Data Acquisition 05/24/2020 12:00:00 AM EDT MEDENT ([facility]) Icm - Interrogation In Person 04/27/2020 12:00:00 AM E DT MEDENT ([facility]) Icm - Interrogation In Person 03/23/2020 12:00:00 AM E DT MEDENT ([facility]) Icd Interrogation (Remote) internet 02/23/2020 12:00:0 0 AM EDT MEDENT ([facility]) Icd/PM Remote Data Acquisition 02/23/2020 12:00:00 AM EDT MEDENT ([facility]) Icm - Interrogation In Person 02/10/2020 12:00:00 AM E DT MEDENT ([facility]) Icm - Interrogation In Person 01/06/2020 12:00:[address] [facility] ([facility]) Icm - Interrogation In Person 12/02/2019 12:00:[address] [facility] ([facility]) Icd Interrogation (Remote) internet 11/24/2019 12:00:0 0 AM EST MEDENT ([facility]) Icd/PM Remote Data Acquisition 11/24/2019 12:00:00 AM EST MEDENT ([facility]) Icm - Interrogation In Person 10/28/2019 12:00:[address] [facility] ([facility]) Icm/Loop System Remote Data Acquistion 10/28/2019 12:0 0:00 AM EST MEDENT ([facility]) URNLS DIP STICK/TABLET RGNT AUTO W/O MICROSCOPY URINALYSIS W/O MICRO STAT 10/27/2019 4:57 AM EST 10/27/2019 09:57:00 AM EST [facility] POC BASIC METABOLIC PANEL POC BASIC METABOLIC PANEL Routine 10/27/2019 3:34 AM EST 10/27/2019 08:34:00 AM [facility] TROPONIN QUANTITATIVE TROPONIN I STAT 10/27/2019 3:28 AM EST 10/27/2019 08:28:00 AM EST [facility] BLOOD COUNT COMPLETE AUTO&AUTO DIFRNTL WBC COUNT CBC AND DIFFER ENTIAL STAT 10/27/2019 3:28 AM EST 10/27/2019 08:28:00 AM EST [facility] THYROID STIMULATING HORMONE TSH TSH STAT 10/27/2019 3:28 AM EST 10/27/2019 08:28:00 AM EST [facility] CREATINE KINASE TOTAL CK STAT 10/27/2019 3:28 AM EST 10/27/2019 08:28:00 AM EST [facility] HEPATIC FUNCTION PANEL HEPATIC FUNCTION PANEL STAT 10/27/2019 3 :28 AM EST 10/27/2019 08:28:00 AM EST [facility] ECG ROUTINE ECG W/LEAST 12 LDS TRCG ONLY W/O I&R ECG 12-LEAD STAT 10/27/2019 3:16 AM EST 10/27/2019 08:16:00 AM [facility] XR HIP COMPLETE RIGHT XR HIP COMPLETE RIGHT STAT 10/27/2019 3 :09 AM EST 10/27/2019 08:09:49 AM [facility] CT HEAD/BRAIN W/O CONTRAST MATERIAL CT HEAD WO CONTRAST STAT 10/27/2019 2:53 AM EST 10/27/2019 07:53:47 AM [facility] Electrocardiogram Complete 10/22/2019 12:00:00 AM EST MEDENT ([facility]) Icm - Interrogation In Person 09/23/2019 12:00:[address] [facility] ([facility]) Icm - Interrogation In Person 09/23/2019 12:00:[address] [facility] ([facility]) Icm/Loop System Remote Data Acquistion 09/23/2019 12:0 0:00 AM EST MEDENT ([facility]) Results ID Date Data Source [id number] 10/06/2020 09:22:00 AM EST [facility] Name Value Range Interpretation Code Description Data Elvie rce(s) Supporting Document(s) White Blood Count 7.0 4.0-10.0 [facility] ([facility]) Red Blood Count 2.98 4.00-5.40 [facility] ([facility]) Platelets 197 172-450 [facility] ([facility] Hemoglobin 9.1 [facility] ([facility]) Hematocrit 29.5 [facility] ([facility]) ID Date Data Source [id number] 10/06/2020 09:22:00 AM EST [facility] ([facility]) Name Value Range Interpretation Code Description Data Elvie rce(s) Supporting Document(s) Albumin [Mass/volume] in Serum or Plasma 2.8 [facility] ([facility]) Calcium [Mass/volume] in Serum or Plasma 8.9 [facility] ([facility]) Carbon dioxide, total [Moles/volume] in Serum or Plasma 35 [facility] ([facility]) Alanine aminotransferase [Enzymatic activity/volume] in Serum or Pl asma 6 MED[facility] ([facility]) Chloride [Moles/volume] in Serum or Plasma 103 MED[facility] ([facility]) Potassium [Moles/volume] in Serum or Plasma 4.7 [facility] ([facility]) Protein [Mass/volume] in Serum or Plasma 6.2 [facility] ([facility]) Alkaline phosphatase [Enzymatic activity/volume] in Serum or Plasma 8 3 MED[facility] ([facility]) Urea nitrogen [Mass/volume] in Serum or Plasma 28 MED[facility] ([facility]) Glucose 101 70-100 [facility] ([facility]) Sodium 139 [facility] ([facility]) Aspartate aminotransferase [Enzymatic activity/volume] in Serum or Plasma 15 MED[facility] ([facility]) Creatinine For GFR 1.59 [facility] ([facility]) ID Date Data Source [id number] 09/27/2020 09:39:00 AM EST [facility] Name Value Range Interpretation Code Description Data Elvie rce(s) Supporting Document(s) Troponin Laboratory test result MEDENT ([facility]) Thyroid Stimulating Hormone 0.626 ME DENT ([facility]) Free T4 0.64 [facility] ([facility]) ID Date Data Source [id number] 09/27/2020 09:39:00 AM EST [facility] Name Value Range Interpretation Code Description Data Elvie rce(s) Supporting Document(s) CPK-MB 1.5 [facility] ([facility]) Creatine kinase [Enzymatic activity/volume] in Serum or Plasma 117 [facility] ([facility]) ID Date Data Source ЕКАТЕРИНА TIBIA/FIBIA AP/LAT 09/16/2020 12:00:00 AM EST eCW1 (On license of [facility]) Name Value Range Interpretation Code Description Data Elvie rce(s) Supporting Document(s) ЕКАТЕРИНА TIBIA/FIBIA AP/LAT eCW1 ( [facility]) ID Date Data Source URINE CULTURE 09/09/2020 09:12:14 AM EST eCW1 ([facility]) Name Value Range Interpretation Code Description Data Elvie rce(s) Supporting Document(s) URINE CULTURE eCW1 ([facility]) ID Date Data Source Urinalysis, no micro 09/07/2020 09:17:45 AM EST eCW1 ([facility]) Name Value Range Interpretation Code Description Data Elvie rce(s) Supporting Document(s) 2+ Leukocyte eCW1 ([facility]) 1.020 Spec gravity eCW1 [facility]) 5 pH eCW1 ([facility]) POS Nitrate eCW1 ([facility]) 1+ Protein eCW1 ([facility]) neg Glucose eCW1 ([facility]) neg Ketones eCW1 ([facility]) TRACE Blood eCW1 ([facility]) neg Bilirubin eCW1 ([facility]) neg Urobili eCW1 ([facility]) yes Internal QC Acceptable (Y/N) e CW1 ([facility]) ID Date Data Source [id number] 08/05/2020 02:00:00 PM EDT MEDENT ([facility]) Name Value Range Interpretation Code Description Data Elvie rce(s) Supporting Document(s) White Blood Count 7.1 4.0-10.0 [facility] ([facility]) Platelets 246 172-450 MED[facility] Hemoglobin 10.4 MED[facility] ([facility]) Red Blood Count 3.52 4.00-5.40 [facility] ([facility]) Hematocrit 34.2 MED[facility] ([facility]) ID Date Data Source [id number] 08/05/2020 02:00:00 PM EDT MEDENT ([facility]) Name Value Range Interpretation Code Description Data Elvie rce(s) Supporting Document(s) Hemoglobin A1c/Hemoglobin.total in Blood 5.7 [facility] ([facility]) ID Date Data Source [id number] 08/05/2020 02:00:00 PM EDT MED[facility] ([facility]) Name Value Range Interpretation Code Description Data Elvie rce(s) Supporting Document(s) Free T4 0.84 [facility] ([facility] Thyroid Stimulating Hormone 0.777 ME DENT ([facility]) ID Date Data Source [id number] 08/05/2020 02:00:00 PM EDT MEDENT ([facility]) Name Value Range Interpretation Code Description Data Elvie rce(s) Supporting Document(s) Triglycerides 290 MED[facility] ([facility]) Cholesterol 296 MED[facility] ([facility]) Chol/HDL Ratio 6.166 MED[facility] ([facility]) Cholesterol in LDL [Mass/volume] in Serum or Plasma by calculation 19 0 MED[facility] ([facility]) HDL 48 [facility] ([facility]) ID Date Data Source [id number] 08/05/2020 02:00:00 PM EDT MEDENT ([facility]) Name Value Range Interpretation Code Description Data Elvie rce(s) Supporting Document(s) Albumin [Mass/volume] in Serum or Plasma 3.6 MED[facility] ([facility]) Alanine aminotransferase [Enzymatic activity/volume] in Serum or Pl asma 14 MED[facility] ([facility]) Calcium [Mass/volume] in Serum or Plasma 8.8 MED[facility] ([facility]) Carbon dioxide, total [Moles/volume] in Serum or Plasma 28 MED[facility] ([facility]) Chloride [Moles/volume] in Serum or Plasma 105 MED[facility] ([facility]) Protein [Mass/volume] in Serum or Plasma 7.0 MED[facility] ([facility]) Potassium [Moles/volume] in Serum or Plasma 4.1 [facility] ([facility]) Alkaline phosphatase [Enzymatic activity/volume] in Serum or Plasma 9 3 MED[facility] ([facility]) Aspartate aminotransferase [Enzymatic activity/volume] in Serum or Plasma 13 MED[facility] ([facility]) Urea nitrogen [Mass/volume] in Serum or Plasma 27 MED[facility] ([facility]) Sodium 140 [facility] ([facility]) Creatinine For GFR 1.67 [facility] Glucose 122 70-110 [facility] ([facility]) ID Date Data Source [id number] 07/07/2020 08:48:45 AM EDT [facility] - CORE SPECIMEN DESCRIPTION URINE, COLLE CTION METHOD NOT SPECIFIEDCULTURE RESULTS >100,000 CFU/ML KLEBSIELLA PNEUMONIAE IMPORTANT NOTE FOR COMPLICATED INFECTIONS SUCH UROSEPSIS CEFAZOLIN SHOULD HAVE A JULIUS OF LESS THAN OR EQUAL TO 2 TO BE CONSIDERED SUSCEPTIBLE. CONTACT MICROBIOLOGY FOR FURTHER TESTING IF WARRANTED.REPORT STATUS FINAL 07/07/2020ORGANISM KLEBSIELLA PNEUMONIAEMETHOD MICAMIKACIN <=2 SUSCEPTIBLEAMOXICILLIN/CLAVULANIC AC <=2/1 SUSCEPTIBLEAMPICILLIN >=32 RESISTANT ISOLATES SUSCEPTIBLE TO AMPICILLIN ARE ALSO SUSCEPTIBLE TO AMOXICILLIN.CEFAZOLIN <=4 SUSCEPTIBLE FOR UNCOMPLICATED UTI'S,CEFAZOLIN JULIUS RESULTS LESS THAN OR EQUAL TO 16 MCG/ML PREDICT SUSCEPTIBILITY OF THE FOLLOWING ORAL CEPHALOSPORINS:CEFACLOR,CEFDINIR, CEFPODOXIME,CEFPROZIL,CEFUROXIME AND CEPHALEXIN.CEFEPIME <=1 SUSCEPTIBLECEFOXITIN <=4 SUSCEPTIBLECEFTAZIDIME <=1 SUSCEPTIBLECEFTRIAXONE <=1 SUSCEPTIBLECIPROFLOXACIN <=0.25 SUSCEPTIBLEGENTAMICIN <=1 SUSCEPTIBLELEVOFLOXACIN <=0.12 SUSCEPTIBLEMEROPENEM <=0.25 SUSCEPTIBLENITROFURANTOIN 64 INTERMEDIATEPIPERACILLIN/TAZOBACTAM <=4 SUSCEPTIBLETETRACYCLINE 2 SUSCEPTIBLE ISOLATES SUSCEPTIBLE TO TETRACYCLINE ARE ALSO SUSCEPTIBLE TO DOXYCYCLINE AND MINOCYCLINE.TOBRAMYCIN <=1 SUSCEPTIBLETRIMETH/SULFA <=1/19 SUSCEPTIBLEERTAPENEM <=0.5 SUSCEPTIBLE Name Value Range Interpretation Code Description Data Elvie rce(s) Supporting Document(s) ID Date Data Source [id number] 07/02/2020 03:09:16 PM EDT [facility] - CORE SPECIMEN DESCRIPTION URINE, COLLE CTION METHOD NOT SPECIFIEDCULTURE RESULTS MIXED UROGENITAL YOLY; PLEASE SUBMIT A NEW SPEC IMEN IF CLINICALLY INDICATED.REPORT STATUS FINAL 07/02/2020 Name Value Range Interpretation Code Description Data Elvie rce(s) Supporting Document(s) ID Date Data Source [id number] 06/16/2020 05:35:00 PM EDT [facility] [place], [place] [address]OWAAKFR NAME: STACIE JEFFERSON OF : 1945REPORT: DISCHARGE SUMMARYPATIENT NUMBER: [id number] STATUS: IPMEDICAL RECORD NUMBER: [id number] OF ADMISSION: 06/14/2020DATE OF DISCHARGE: 06/13/2020ROOM: 01For specifics of the admission, see the H and P, 06/14/[address] Garnett.DISPOSITION: The patient to be [facility]. She will need home PT. This will be arranged through [facility].CODE STATUS: DNR/DNI.DIET: Healthy he art.Primary care and all physician arrangements through [facility] per patient.PHYSICAL EXAMINATION AT TIME OF DISCHARGE: Patient feels well. She feelsready to leave. Temperature 36.9, pulse 63, blood pressure 147/82,respirations 18, oximetry on a 2 liters nasal cannula 94 percent. Lungsare clear without wheeze, rales, rhonchi or consolidation. Cardiac: Regular rate and rhythm. No murmurs, gallops or rubs. Abdomen: Bowelsounds positive, soft, nontender. Extremities: No clubbing, cyanosis oredema.LABORATORY TESTING: Electrolyte panel shows a creatinine of 1.26 which iseffectively at baseline. Nonfasting glucose 106. GFR 42. CBC showing anormal white count at 6.9, H and H 9/27.5, which is stable. Platelet [id number]. Chest x-ray: No acute abnormalities seen. CT head brain: Noacute intracranial abnormalities seen. Diffuse cerebral volume loss, mildsequela of chronic small vessel ischemic disease. EKG, sinus tachycardia,LAD, nonspecific T-wave abnormalities. Comparison EKG, 017,ventricular rate has increased by 36 beats per minute, nonspecific T- waveabnormalities have replaced inverted T-waves in inferolateral leads.SUMMARY RECOMMENDATIONS:1. Falls/weakness due to dehydration which was addressed with IV fluid and urinary tract infection which have been treated with antibiotics. These problems have resolved.2. Klebsiella UTI. The patient completed a full course of ceftriaxone.3. COPD, stable. Continue nasal cannula oxygen at 2 liters per minute as before.4. Cardiomyopathy and congestive heart failure. Continue Entresto, torsemide and potassium.5. Neuropathy. Continue gabapentin.6. Depression, anxiety disorder. Continue bupropion, clonazepam and sertraline.7. GERD. Continue Protonix.8. Coronary artery disease. Continue p.r.n. nitroglycerin.9. Decreased H and H, which was the result of dilution. H and H is stable. This can be followed up on as an outpatient.10. Renal failure, chronic kidney disease stage III. This is stable. Followup per [facility].11. The patient is stable for discharge at this time.DICTATED BY: GAYLA Gonzalezictated: 06/16/2020 10:38DT: 06/16/2020 10:45Job #: [id number]: [facility] computer generated reports are notconfirmed or authenticated unless they are signed by the providerElectronically Authenticated by:ALEXUS MASTERSON MD On 06/16/2020 05:35 PM EDT Name Value Range Interpretation Code Description Data Elvie rce(s) Supporting Document(s) ID Date Data Source [id number] 06/16/2020 08:03:31 AM EDT [facility] Name Value Range Interpretation Code Description Data Elvie rce(s) Supporting Document(s) SODIUM 145 mmol/L (136-145) [facility] POTASSIUM 3.8 mmol/L (3.6-5.2) [facility] CHLORIDE 112 mmol/L (100-108) H [facility] CO2 28 mmol/L (22-31) [facility] ANION GAP 5 mmol/L (7-16) L [facility] UREA NITROGEN 26 mg/dL (7-24) H [facility] CREATININE 1.26 mg/dL (0.60-1.00) H [facility] BUN/CREAT RATIO 20.6 RATIO (10.0-20.0) H [facility] GLUCOSE 106 mg/dL (70-99) H [facility] CALCIUM 7.7 mg/dL (8.4-10.2) L [facility] GFR 42 ml/min/1.73m2 (>59) L [facility] GFR ( AMER) 50 ml/min/1.73m2 (>59) L [facility] GFR INTERPRETATION [facility] --NORMAL KIDNEY FUNCTION OR MILD DISEASE - GFR >OR= 60CHRONIC KIDNEY DISEASE - GFR 15 - 59RENAL FAILURE - GFR <15 Est. GFR calculation based on the MDRDstudy equation, which assumes a steadystate for creatinine. Est. GFR should notbe used for medication dosing. ID Date Data Source [id number] 06/16/2020 07:33:50 AM EDT [facility] Name Value Range Interpretation Code Description Data Elvie rce(s) Supporting Document(s) WBC 6.9 10*3/uL (4.1-11.0) [facility] [place] RBC 2.93 10*6/uL (4.00-5.40) L [facility] HGB 9.0 g/dL (12.0-16.0) L [facility] HCT 27.5 % (36.0-47.0) L [facility] MCV 94.0 fL (80.0-95.0) [facility] MCH 30.6 pg (27.0-32.0) [facility] MCHC 32.6 g/dL (32.0-36.0) [facility] RDW 15.4 % (10.5-14.5) H [facility] PLT 221 10*3/uL (150-450) [facility] MPV 7.1 fL (7.1-10.7) [facility] ID Date Data Source [id number] 06/15/2020 08:22:08 AM EDT [facility] Name Value Range Interpretation Code Description Data Elvie rce(s) Supporting Document(s) SODIUM 145 mmol/L (136-145) [facility] POTASSIUM 4.1 mmol/L (3.6-5.2) [facility] CHLORIDE 112 mmol/L (100-108) H [facility] CO2 27 mmol/L (22-31) [facility] ANION GAP 6 mmol/L (7-16) L [facility] UREA NITROGEN 27 mg/dL (7-24) H [facility] CREATININE 1.39 mg/dL (0.60-1.00) H [facility] BUN/CREAT RATIO 19.4 RATIO (10.0-20.0) [facility] GLUCOSE 117 mg/dL (70-99) H [facility] CALCIUM 7.9 mg/dL (8.4-10.2) L [facility] GFR 37 ml/min/1.73m2 (>59) L [facility] GFR ( AMER) 45 ml/min/1.73m2 (>59) L [facility] GFR INTERPRETATION [facility] --NORMAL KIDNEY FUNCTION OR MILD DISEASE - GFR >OR= 60CHRONIC KIDNEY DISEASE - GFR 15 - 59RENAL FAILURE - GFR <15 Est. GFR calculation based on the MDRDstudy equation, which assumes a steadystate for creatinine. Est. GFR should notbe used for medication dosing. ID Date Data Source [id number] 06/15/2020 08:03:27 AM EDT [facility] Name Value Range Interpretation Code Description Data Elvie rce(s) Supporting Document(s) WBC 8.1 10*3/uL (4.1-11.0) [facility] [place] RBC 2.85 10*6/uL (4.00-5.40) L [facility] HGB 8.8 g/dL (12.0-16.0) L [facility] HCT 27.0 % (36.0-47.0) L [facility] MCV 94.8 fL (80.0-95.0) [facility] MCH 30.9 pg (27.0-32.0) [facility] MCHC 32.5 g/dL (32.0-36.0) [facility] RDW 15.7 % (10.5-14.5) H [facility] [place] [facility] PLT 190 10*3/uL (150-450) [facility] [place] MPV 7.2 fL (7.1-10.7) [facility] [place] ID Date Data Source [id number] 06/18/2020 01:19:00 AM EDT [facility] [address] [place], [place] [address]EMMWHZB NAME: JANEEN JEFFERSONDATE OF : 1945REPORT: ADMISSION NOTEPATIENT NUMBER: [id number] STATUS: IPMEDICAL RECORD NUMBER: [id number] OF ADMISSION: 06/14/2020ROOM: [address] [place] [address] CARE PHYSICIAN: Sanju Lock [facility] COMPLAINT: Recent fall with reports of shortness of breath.HISTORY OF PRESENT ILLNESS: 74-year-old female with history of COPD on 2 liters of oxygen at home, CAD requing multiple stents, ischemic cardiomyopathy with ejection fraction of around 20 percent status post ICD/pacemaker placement three years ago, anxiety and depression, presented from assisted living facility with reports of a fall. The patient reports of ambulates with a walker at baseline but tripped and fell to the floor. Reports of sustaining some minimal head trauma and having increasing right hip pain but does have possible sciatica. Reports of some minimal shortness of breath but denies any productive cough, reported fevers or chills, chest pains, palpitations, nausea, vomiting, diarrhea, constipation, melena, or hematochezia. Reports of having decreased urine output lately, but denies any hematuria. Reports of not feeling well since the fall with some generalized weakness and reported confusion as well. In the ED, she was noted to be febrile with mild respiratory distress. Lab work showed mild increased BNP with a slight increase in creatinine at baseline and CBC was essentially normal. COVID was negative, chest x-ray was negative and UA was positive. She was initially given ceftriaxone and azithromycin for both COPD and UTI, given some nebulizer treatments as well as steroids as well. Reports of slight improvement in her shortness of breath.PAST MEDICAL HISTORY: Includes:1. CAD with three MIs in the past, status post 12 stents.2. Ischemic cardiomyopathy, ejection fraction around 20 percent, status post ICD, pacemaker placement about three years ago.3. CKD stage III, baseline creatinine around 1.5.4. Recurrent UTIs.5. Spinal stenosis.6. Anxiety, depression.7. COPD, on 2 liters of oxygen at home.8. Prior CVA.9. GERD.PAST SURGICAL HISTORY: Includes:1. Hysterectomy.2. Lower spine surgery.3. Multiple cardiac stent placements.4. AICD pacemaker placement.SOCIAL HISTORY: She was a heavy smoker in the past. Reports of smoking afew cigarettes currently. Denies any alcohol use or any recreationaldrugs. Presented from assisted living facility.ALLERGIES: Include Cipro.MEDICATIONS:Home Medicationsacetaminophen (Tylenol Arthritis Pain) 650 mg Tablet Extended Release 1tablet oral twice a dayMedication Status: activeLast Taken Date/Time: 06/13 amalbuterol sulfate (Ventolin HFA) 90 mcg HFA Aerosol Inhaler 2 puff byinhalation four times daily PRNPRN Reason: shortness of breathMedication Status: activeaspirin (Aspirin Low Dose) 81 mg tablet, delayed release (DR/EC) 1 tabletoral dailyMedication Status: activeLast Taken Date/Time: uPROPion HCl (Wellbutrin SR) 100 mg tablet sustained-release 12 hr 1tablet oral dailyMedication Status: activeLast Taken Date/Time: alcium carbonate (Tums) 200 mg calcium (500 mg) tablet, chewable 1 tabletoral twice a day PRNPRN Reason: heartburnMedication Status: activecholecalciferol (vitamin D3) 1,250 mcg (50,000 unit) Capsule 1 capsule oralmonthlyMedication Status: activeLast Taken Date/Time: unknowncholestyramine (with sugar) (Questran) 4 gram Powder in Packet 1 packetoral twice a dayExtended Instructions: mix in 6-8 oz water.Medication Status: activeLast Taken Date/Time: 06/13 amclonazePAM 0.5 mg Tablet 1 tablet oral twice a dayMedication Status: activeLast Taken Date/Time: 06/13 amclonazePAM 0.5 mg Tablet 1 tablet oral daily PRNPRN Reason: anxietyExtended Instructions: *in add'n to scheduled dosing for breakthru anxiety.Medication Status: activecyanocobalamin (vitamin B-12) 500 mcg Tablet 1 tablet oral dailyMedication Status: activeLast Taken Date/Time: 06/13digoxin 125 mcg (0.125 mg) Tablet 1 tablet oral every Sunday, Sunday,SundayMedication Status: activeLast Taken Date/Time: abapentin 300 mg Capsule 2 capsule oral daily at bedtimeMedication Status: activeLast Taken Date/Time: 06/12ipratropium-albuterol 0.5 mg-3 mg (2.5 mg base)/3 mL Solution forNebulization 3 mL by inhalationfour times daily PRNPRN Reason: shortness of breathMedication Status: activelevomefolate calcium (L-Methylfolate) 15 mg Tablet 1 tablet oral dailyMedication Status: activeLast Taken Date/Time: 06/13nitroglycerin (Nitrostat) 0.4 mg Tablet, Sublingual 1 tablet sublingualonce PRNPRN Reason: chest painExtended Instructions: may repeat every 5 min x 2 more doses then call ifno relief.Medication Status: activeomeprazole 40 mg capsule, delayed release(DR/EC) 1 capsule oral dailyMedication Status: activeLast Taken Date/Time: 06/13polyvinyl alcohol (Artificial Tears (polyvin alc)) 1.4 % Drops 1 dropophthalmic, both eyes four times dailyMedication Status: activeLast Taken Date/Time: 06/13 ampotassium chloride (Klor-Con M20) 20 mEq tablet, ER particles/ crystals 1tablet oral every Sunday, Sunday, SundayMedication Status: activeLast Taken Date/Time: 06/11sacubitril-valsartan (Entresto) 24 mg-26 mg Tablet 0.5 tablet oral twice adayMedication Status: activeLast Taken Date/Time: 06/13 amsennosides- docusate sodium (Senna-S) 8.6 mg-50 mg Tablet 2 tablet oraldaily at bedtime PRNPRN Reason: constipationMedication Status: activesertraline 100 mg Tablet 1 tablet oral dailyMedication Status: activeLast Taken Date/Time: 06/13torsemide 20 mg Tablet 0.5 tablet oral dailyMedication Status: activeLast Taken Date/Time: 06/13vit C,R-Zt-brjlt-lutein-zeaxan (PreserVision AREDS-2) 250 mg-200 unit-40mg-1 mg-5 mg-1 mg Capsule1 capsule oral dailyMedication Status: activeLast Taken Date/Time: 06/13FAMILY HISTORY: Noncontributory at this time.REVIEW OF SYSTEMS: All 10-point systems were reviewed and were negativewith the exception of as per HPI.PHYSICAL EXAMINATION:Vitals on admission: Temperature 38.2, pulse of 97, respiratory ratearound 24, blood pressure is 142/66, saturating around 95 percent on 2liters of nasal cannula. Denies any pains at rest.General: Obese female of stated age, lying in bed, does not seem to be inany acute distress. Alert and oriented x3.HEENT: Normocephalic, atraumatic. Pupils are equal, round, reactive tolight. Extraocular muscles are intact. Anicteric.Neck: Supple.Cardiovascular: Normal S1, S2. No murmurs, rubs or gallops noted.Lungs: Clear to auscultation bilaterally. No wheezing, rhonchi, orcrackles noted.Abdomen: Obese, soft, nontender, nondistended. Normal bowel sounds.Extremities: No clubbing, no cyanosis, no edema.Neuro Exam: Grossly intact. No obvious pain elicited upon movement of thelower extremities.LABORATORIES AND IMAGING: Chemistry with creatinine of 1.5 with serumglucose of 138, rest is essentially normal. LFTs are normal. Troponin isnegative. BNP of 571, slightly elevated, likely at baseline. WBC of 11, Hand H of with platelets of 223. COVID negative. UA was cloudy,positive nitrite, 2+ leukocyte esterase, 2+ bacteria, about 25 wbc's noted.Cultures pending. CT of the brain negative. Chest x-ray showed left-sidedAICD pacemaker device noted, otherwise no acute cardiopulmonary abnormalitynoted. EKG shows sinus tach at 101 beats per minute, some nonspecific ST-Twave abnormalities noted.ASSESSMENT AND PLAN: 74-year-old female with history of CAD status post multiple stents, prior DE with ischemic cardiomyopathy with ejection fraction around 20 percent status post ICD placement with CHF, anxiety, depression and COPD on home O2, presents with reports of a mechanical fall, hitting her head couple of days ago, but denies any focal weakness, numbness or tingling now with mild shortness of breath and confusion noted to be febrile while here with labs showing creatinine essentially at baseline with a positive UA with no acute findings on the CT of the brain as well as a chest x- ray, negative for COVID, likely symptoms of generalized weakness with confusion likely due to UTI resulting in falls with mild COPD admission.1. Fall likely due to generalized weakness with possible mild dehydration. Patient has been started on minimal fluid and will complete about a half a liter of that due to underlying CHF. Keep the patient on fall precaution and obtain PT eval to assess ambulation in the morning. 2. UTI, could be contributed to some slight co nfusion and falls. Continue on ceftriaxone and follow up with urine culture and tailor antibiotics appropriately. 3. Mild COPD exacerbation. She seemed to be in no obvious respiratory distress at this time and saturating well on 2 liters of nasal cannula, which she normally uses. Continue DuoNebs t.i.d. with levalbuterol as needed. If the patient continues to wheeze in the morning, we will consider starting her on low dose of prednisone. 4. Cardiomyopathy, CHF, stable. Continue home regimen including digoxin, torsemide, Entresto with potassium supplementation. 5. Neuropathy. Continue gabapentin. 6. Anxiety, depression, stable. Continue home regimen including bupropion, clonazepam and sertraline. 7. GERD. Continue Protonix. 8. Underlying CAD. Continue sublingual nitro as needed. 9. DVT prophylaxis will be heparin subcu.Per my assessment, the patient will likely need more than two midnights'stay. I will admit the patient to inpatient service.DICTATED BY: Lefty Garnett, MDDictated: 06/14/2020 0:28DT: 06/14/2020 0:36Job #: [id number]: Sanju Lock MDNOTE: [facility] computer generated reports are not confirmed orauthenticated unless they are signed by the providerElectronically Authenticated and Edited by:LEFTY GARNETT MD On 06/18/2020 01:19 AM EDT Name Value Range Interpretation Code Description Data Elvie rce(s) Supporting Document(s) ID Date Data Source [id number] 06/16/2020 09:22:05 AM EDT Lab [facility] SPECIMEN DESCRIPTION URINE, COLLE CTION METHOD NOT SPECIFIEDCULTURE RESULTS >100,000 CFU/ML KLEBSIELLA PNEUMONIAE IMPORTANT NOTE FOR COMPLICATED INFECTIONS SUCH UROSEPSIS CEFAZOLIN SHOULD HAVE A JULIUS OF LESS THAN OR EQUAL TO 2 TO BE CONSIDERED SUSCEPTIBLE. CONTACT MICROBIOLOGY FOR FURTHER TESTING IF WARRANTED. JULIUS NUMBERS CAN NOT BE DIRECTLY COMPARED ACROSS DIFFERENT ANTIBIOTICS. JULIUS VALUES ARE OCCASIONALLY USEFUL. SUSCEPTIBLE OR RESISTANT INTERPRETATIONS ALONE ARE SUFFICIENT FOR ANTIBIOTIC SELECTION IN THE GREAT MAJORITY OF INFECTIONS.REPORT STATUS FINAL 06/16/2020ORGANISM KLEBSIELLA PNEUMONIAEMETHOD MICAMIKACIN <=2 SUSCEPTIBLEAMOXICILLIN/CLAVULANIC AC <=2/1 SUSCEPTIBLEAMPICILLIN >=32 RESISTANT ISOLATES SUSCEPTIBLE TO AMPICILLIN ARE ALSO SUSCEPTIBLE TO AMOXICILLIN.CEFAZOLIN <=4 SUSCEPTIBLE FOR UNCOMPLICATED UTI'S,CEFAZOLIN JULIUS RESULTS LESS THAN OR EQUAL TO 16 MCG/ML PREDICT SUSCEPTIBILITY OF THE FOLLOWING ORAL CEPHALOSPORINS:CEFACLOR,CEFDINIR, CEFPODOXIME,CEFPROZIL,CEFUROXIME AND CEPHALEXIN.CEFOXITIN <=4 SUSCEPTIBLECEFTAZIDIME <=1 SUSCEPTIBLECEFTRIAXONE <=1 SUSCEPTIBLECIPROFLOXACIN <=0.25 SUSCEPTIBLEGENTAMICIN <=1 SUSCEPTIBLELEVOFLOXACIN <=0.12 SUSCEPTIBLEMEROPENEM <=0.25 SUSCEPTIBLENITROFURANTOIN 32 SUSCEPTIBLEPIPERACILLIN/TAZOBACTAM <=4 SUSCEPTIBLETETRACYCLINE <=1 SUSCEPTIBLE ISOLATES SUSCEPTIBLE TO TETRACYCLINE ARE ALSO SUSCEPTIBLE TO DOXYCYCLINE AND MINOCYCLINE.TOBRAMYCIN <=1 SUSCEPTIBLETRIMETH/SULFA <=1/19 SUSCEPTIBLEERTAPENEM <=0.5 SUSCEPTIBLE Name Value Range Interpretation Code Description Data Elvie rce(s) Supporting Document(s) ID Date Data Source [id number] 06/13/2020 09:32:32 PM EDT Lab [facility] Name Value Range Interpretation Code Description Data Elvie rce(s) Supporting Document(s) URINE WBC (0-5) Lab [facility] URINE RBC (0-2) [facility] [place] [facility] BACTERIA 2+ [HPF] [facility] [place] [facility] ID Date Data Source [id number] 06/13/2020 09:18:37 PM EDT [facility] [place] [facility] Name Value Range Interpretation Code Description Data Elvie rce(s) Supporting Document(s) COLOR [facility] [place] [facility] PERFORMED AT [address] [place] [address] APPEARANCE [facility] [place] [facility] SPEC GRAV URINE 1.019 (1.003-1.030) [facility] PH URINE 5.0 (5.0-7.5) [facility] [place] [facility] LEUK ESTERASE 2+ (NEG) A [facility] [place] [facility] NITRITE URINE (NEG) A [facility] [place] [facility] PROTEIN URINE (NEG) A [facility] [place] [facility] GLUCOSE URINE (NEG) [facility] [place] [facility] KETONE URINE (NEG) [facility] [place] [facility] UROBILINOGEN 0.2 mg/dL (0-1.0) Lab [place] [facility] BILIRUBIN URINE (NEG) [facility] [place] [facility] BLOOD/HGB URINE (NEG) [facility] [place] [facility] ID Date Data Source [id number] 06/19/2020 12:08:40 PM EDT [facility] [place] [facility] SPECIMEN DESCRIPTION PERIPHERALSP ECIAL REQUESTS NONECULTURE RESULTS NO GROWTH 6 DAYSREPORT STATUS FINAL 06/19/2020 Name Value Range Interpretation Code Description Data Elvie rce(s) Supporting Document(s) ID Date Data Source [id number] 06/19/2020 12:08:40 PM EDT [facility] [place] [facility] SPECIMEN DESCRIPTION PERIPHERALSP ECIAL REQUESTS NONECULTURE RESULTS NO GROWTH 6 DAYSREPORT STATUS FINAL 06/19/2020 Name Value Range Interpretation Code Description Data Elvie rce(s) Supporting Document(s) ID Date Data Source [id number] 06/13/2020 06:47:00 PM EDT [facility] [place] [facility] Name Value Range Interpretation Code Description Data Elvie rce(s) Supporting Document(s) SARS coronavirus 2 RNA [Presence] in Res piratory specimen by SANDRA with probe detection [facility] [place] [facility] This lab was reported by [facility] [place] [facility]. ID Date Data Source [id number] 06/13/2020 10:17:33 PM EDT [facility] [place] [facility] Name Value Range Interpretation Code Description Data Elvie rce(s) Supporting Document(s) SPECIMEN DESCRIPTION [facility] COVID19 RESULT (NDET) Lab [place] [facility] ALEX THIS ASSAY AMPLIFIES AND DETECTSTHE TARG ET RNA USING REAL-TIME PCR.NEGATIVE 2019_NCOV RT-PCR RESULTS DONOT PRECLUDE 2019_NCOV INFECTION ANDSHOULD NOT BE USED THE SOLE BASISFOR PATIENT MANAGEMENT DECISIONS. COMMENT [facility] UNDER AN EMERGENCY USE AUTHORIZATION(EUA ) FOR THE DETECTION AND/OR DIAGNOSISOF THE VIRUS THAT CAUSES COVID-19.EMAILED RESULTS TO [facility] AT [address] PU [id number] ID Date Data Source [id number] 06/13/2020 07:09:00 PM EDT [facility] DATE OF EXAM: 06/13/2020CT BRAIN WITHOUT CONTRAST CLINICAL STATEMENT: Cerebrovascular accident TECHNIQUE: Multiple noncontrast images were obtained through the brain from the base of skull to the vertex without intravenous contrast. COMPARISON: CT brain 11/12/2015 and MRI of the brain 11/13/2015 FINDINGS: No acute major vascular territory infarct or intracranial hemorrhage is seen. Mild low-attenuation is seen throughout the periventricular and subcortical white matter, nonspecific however most likely sequela of chronic small vessel ischemic disease. No midline shift or mass effect is seen. The ventricles and sulci are prominent, compatible with diffuse cerebral volume loss. There is no intra or extra-axial fluid collection. The calvarium is intact. The patient is status post bilateral intraocular lens replacement. The visualized paranasal sinuses appear unremarkable. A small amount of left mastoid fluid is seen. The right mastoid air cells are well aerated. IMPRESSION: No acute intracranial abnormality is seen. Diffuse cerebral volume loss and mild sequela of chronic small vessel ischemic disease. K6End of diagnostic report for accession: [id number] Interpreted: Clay Carrillo MDTranscribed: 06/13/2020 07:06 PMSigned: 06/13/2020 07:09 PM Clay Carrillo MD [facility] ACC # [id number] BILL # [id number] Name Value Range Interpretation Code Description Data Elvie rce(s) Supporting Document(s) ID Date Data Source [id number] 06/13/2020 06:51:46 PM EDT [facility] [place] [facility] Name Value Range Interpretation Code Description Data Elvie rce(s) Supporting Document(s) NT PRO BNP 571 pg/mL (0-125) H [facility] [place] [facility] ID Date Data Source [id number] 06/13/2020 06:51:46 PM EDT [facility] [place] [facility] Name Value Range Interpretation Code Description Data Elvie rce(s) Supporting Document(s) TOTAL PROTEIN 7.3 g/dL (6.4-8.2) [facility] [place] [facility] ALBUMIN 3.1 g/dL (3.2-4.5) L [facility] [place] [facility] GLOBULIN 4.2 g/dL (2.7-4.3) [facility] [place] [facility] ALB/GLOB RATIO 0.7 RATIO [facility] [place] [facility] BILIRUBIN,TOTAL 0.3 mg/dL (0.0-1.0) [facility] [place] [facility] PLEASE NOTE:Total bilirubin results may be falselyelevated in patients taking Eltrombopag. BILIRUBIN,CONJUGATED 0.1 mg/dL (0.0-0.3) [facility] BILIRUBIN,UNCONJ. 0.2 mg/dL (0.0-0.7) [facility] [place] [facility] ALKALINE PHOSPHATASE 98 U/L (45-117) [facility] AST (SGOT) 13 U/L (11-39) [facility] [place] [facility] ALT (SGPT) 14 U/L (12-78) [facility] [place] [facility] ID Date Data Source [id number] 06/13/2020 06:51:46 PM EDT [facility] [place] [facility] Name Value Range Interpretation Code Description Data Elvie rce(s) Supporting Document(s) TROPONIN I <0.05 ng/mL (<0.05) [facility] [place] [facility] [place] Less than 0.05: Myocardial injury unlike lyGreater than or equal to 0.05: Highly suggestive of myocardial injuryCorrelation with rise and/or fall ofserial troponins, clinical symptomsand ECG changes is necessary. ID Date Data Source [id number] 06/13/2020 06:51:46 PM EDT [facility] [place] [facility] Name Value Range Interpretation Code Description Data Elvie rce(s) Supporting Document(s) SODIUM 139 mmol/L (136-145) [facility] [place] [facility] POTASSIUM 4.4 mmol/L (3.6-5.2) [facility] [place] [facility] CHLORIDE 103 mmol/L (100-108) [facility] [place] [facility] CO2 35 mmol/L (22-31) H [facility] [place] [facility] ANION GAP 1 mmol/L (7-16) L [facility] [place] [facility] UREA NITROGEN 20 mg/dL (7-24) [facility] [place] [facility] CREATININE 1.50 mg/dL (0.60-1.00) H [facility] [place] [facility] BUN/CREAT RATIO 13.3 RATIO (10.0-20.0) [facility] GLUCOSE 138 mg/dL (70-99) H [facility] [place] [facility] CALCIUM 8.6 mg/dL (8.4-10.2) [facility] [place] [facility] GFR 34 ml/min/1.73m2 (>59) L [facility] [place] [facility] GFR ( AMER) 41 ml/min/1.73m2 (>59) L [facility] [place] [facility] GFR INTERPRETATION [facility] --NORMAL KIDNEY FUNCTION OR MILD DISEASE - GFR >OR= 60CHRONIC KIDNEY DISEASE - GFR 15 - 59RENAL FAILURE - GFR <15 Est. GFR calculation based on the MDRDstudy equation, which assumes a steadystate for creatinine. Est. GFR should notbe used for medication dosing. ID Date Data Source [id number] 06/13/2020 06:29:39 PM EDT [facility] [place] [facility] Name Value Range Interpretation Code Description Data Elvie e(s) Supporting Document(s) WBC 11.0 10*3/uL (4.1-11.0) [facility] [place] [facility] RBC 3.51 10*6/uL (4.00-5.40) L [facility] [place] [facility] HGB 10.6 g/dL (12.0-16.0) L [facility] [place] [facility] HCT 32.9 % (36.0-47.0) L [facility] [place] [facility] MCV 93.7 fL (80.0-95.0) [facility] [place] [facility] MCH 30.2 pg (27.0-32.0) [facility] [place] [facility] MCHC 32.2 g/dL (32.0-36.0) [facility] [place] [facility] RDW 15.2 % (10.5-14.5) H [facility] [place] [facility] PLT 223 10*3/uL (150-450) [facility] [place] [facility] MPV 6.6 fL (7.1-10.7) L [facility] [place] [facility] NEUT % 83.2 % (35.0-75.0) H [facility] [place] [facility] LYMPH % 8.4 % (16.0-52.0) L [facility] [place] [facility] MONO % 7.2 % (0.0-8.0) [facility] [place] [facility] EOS % 0.7 % (0.0-5.0) [facility] [place] [facility] BASO % 0.5 % (0.0-4.0) [facility] [place] [facility] NEUT # 9.1 10*3/uL (1.8-7.7) H [facility] [place] [facility] LYMPH # 0.9 10*3/uL (1.2-4.8) L [facility] [place] [facility] MONO # 0.8 10*3/uL (0.0-0.8) [facility] [place] [facility] Eosinophils [#/volume] in Blood by Automated count 0.1 10*3/uL (0.0-0 .5) [facility] [place] [facility] BASO # 0.1 10*3/uL (0.0-0.2) [facility] [place] [facility] ID Date Data Source [id number] 06/13/2020 06:19:52 PM EDT [facility] Name Value Range Interpretation Code Description Data Elvie rce(s) Supporting Document(s) MUSE EKG PDF encoded [facility] [id number] [file] [id number] ID Date Data Source [id number] 06/13/2020 06:21:00 PM EDT [facility] DATE OF EXAM: 06/13/2020CHEST, SINGLE PO RTABLE VIEW. INDICATION: Dyspnea and shortness of breath COMPARISON: 05/02/2017 TECHNIQUE: A portable radiograph of the chest was obtained. FINDINGS: A left-sided AICD/pacemaker device is noted. No focal consolidation, pleural effusions or pulmonary edema is seen. The cardiomediastinal silhouette is again noted to be slightly prominent. Visualized osseous structures are within normal limits. IMPRESSION: No acute abnormality is seen. K6End of diagnostic report for accession: [id number] Interpreted: Clay Carrillo MDTranscribed: 06/13/2020 06:20 PMSigned: 06/13/2020 06:21 PM Clay Carrillo MD [facility] ACC # [id number] BILL # [id number] Name Value Range Interpretation Code Description Data Elvie rce(s) Supporting Document(s) ID Date Data Source [id number] 02/24/2020 11:45:04 AM EDT [facility] Name Value Range Interpretation Code Description Data Elvie rce(s) Supporting Document(s) CHOLESTEROL @ 295 mg/dL (0-200) H [facility] TRIGLYCERIDE @ 413 mg/dL (30-200) H [facility] HDL CHOLESTEROL @ 42 mg/dL (>40) [facility] PER NCEP ATP III GUIDELINES:RESULTS LOWE R THAN 40 MG/DL ARE SUGGESTIVEOF INCREASED RISK FOR CORONARY ARTERYDISEASE. RESULTS > OR = TO 60 MG/DL ARECONSIDERED A NEGATIVE RISK FACTOR. CHOL/HDL RATIO 7.0 RATIO [facility] INTERPRETATION OF CHOL-HDL RATIO CHD RISK FEMALE MALEVERY HIGH >8.3 >14.3HIGH 5.6- 8.3 6.7- 14.3AVERAGE 3.7- 5.6 4.0- 6.7BELOW AVERAGE 2.5- 3.7 2.7- 4.0PROTECTED <2.5 <2.7 LDL CHOL (CALC) (<130) [facility] INTERFERENCE FROM ELEVATED TRIGLYCERIDES (GREATER THAN 300 MG/DL). SEE RESULTFOR DIRECT LDL. ID Date Data Source [id number] 02/24/2020 11:54:57 AM EDT [facility] Name Value Range Interpretation Code Description Data Elvie rce(s) Supporting Document(s) DIRECT LDL @ 186 mg/dL (<130) H [facility] PER NCEP ATP III GUIDELINES: OPTIMAL < 100 NEAR OPTIMAL 100 - 129BORDERLINE HIGH 130 - 159 HIGH 160 - 189 VERY HIGH > 189 ID Date Data Source [id number] 02/23/2020 05:29:29 PM EDT [facility] Name Value Range Interpretation Code Description Data Elvie rce(s) Supporting Document(s) WBC 6.1 10*3/uL (4.1-11.0) [facility] RBC 3.59 10*6/uL (4.00-5.40) L [facility] HGB 10.9 g/dL (12.0-16.0) L [facility] HCT 33.4 % (36.0-47.0) L [facility] MCV 93.1 fL (80.0-95.0) [facility] MCH 30.5 pg (27.0-32.0) [facility] MCHC 32.7 g/dL (32.0-36.0) [facility] RDW 15.3 % (10.5-14.5) H [facility] PLT 256 10*3/uL (150-450) [facility] - [facility] MPV 6.9 fL (7.1-10.7) L [facility] [place] [facility] ID Date Data Source [id number] 02/23/2020 06:06:27 PM EDT [facility] Name Value Range Interpretation Code Description Data Elvie rce(s) Supporting Document(s) DIGOXIN 0.9 ng/mL (0.8-2.0) Laboratory [facility] - CORE ID Date Data Source [id number] 02/23/2020 06:06:27 PM EDT [facility] Name Value Range Interpretation Code Description Data Elvie rce(s) Supporting Document(s) SODIUM 138 mmol/L (136-145) [facility] [place] [facility] POTASSIUM 4.4 mmol/L (3.6-5.2) [facility] [place] [facility] CHLORIDE 105 mmol/L (100-108) [facility] [place] [facility] CO2 31 mmol/L (22-31) [facility] [place] [facility] ANION GAP 2 mmol/L (7-16) L [facility] [place] [facility] UREA NITROGEN 22 mg/dL (7-24) [facility] CREATININE 1.58 mg/dL (0.60-1.00) H [facility] BUN/CREAT RATIO 13.9 RATIO (10.0-20.0) [facility] [place] [facility] GLUCOSE 120 mg/dL (70-99) H [facility] [place] [facility] - [facility] CALCIUM 8.7 mg/dL (8.4-10.2) [facility] [place] [facility] TOTAL PROTEIN 6.6 g/dL (6.4-8.2) [facility] ALBUMIN 3.3 g/dL (3.2-4.5) [facility] [place] [facility] - [facility] GLOBULIN 3.3 g/dL (2.7-4.3) [facility] [place] [facility] ALB/GLOB RATIO 1.0 RATIO [facility] ALKALINE PHOSPHATASE 101 U/L (45-117) [facility] [place] [facility] BILIRUBIN,TOTAL 0.2 mg/dL (0.0-1.0) [facility] PLEASE NOTE:Total bilirubin results may be falselyelevated in patients taking Eltrombopag. AST (SGOT) 12 U/L (11-39) [facility] [place] [facility] ALT (SGPT) 15 U/L (12-78) [facility] [place] [facility] GFR 32 ml/min/1.73m2 (>59) L [facility] - [facility] GFR ( AMER) 39 ml/min/1.73m2 (>59) L Lab[facility] [place] [facility] - [facility] GFR INTERPRETATION [facility] [place] [facility] --NORMAL KIDNEY FUNCTION OR MILD DISEASE - GFR >OR= 60CHRONIC KIDNEY DISEASE - GFR 15 - 59RENAL FAILURE - GFR <15 Est. GFR calculation based on the MDRDstudy equation, which assumes a steadystate for creatinine. Est. GFR should notbe used for medication dosing. ID Date Data Source [id number] 01/16/2020 01:09:56 PM EDT [facility], PCName: Damion Gan: 1945Provider: NareshedgarBobby fentonLyn: 01/16/2020 Chief ComplaintChronic right knee pain Chief Complaint 2NYSW VAS PAIN Established: DOTTIE completing section: Daphney SINCLAIR History of Present IllnessRecent test/procedures: Patient was asked and denies having any tests since their last visit. Patient was asked and denies being seen by any Physicians since their last visit. The patient was last seen by a [facility] provider on 11/11/2019. At today's visit patient presents with their Self Patient is retired. The patient is being seen for a follow-up. Pain Duration: 10+ years Pain Quality: (Nociceptive) stabbing Timing: constant Progression: worsening Palliation: block, resting/laying down and stretching Exacerbating: walking Pain Score: a current pain level of 6/10 and a minimum pain level of 0/10. Condition type: The patient is being seen for a chronic condition. PCP Je Meza NP. PAIN LOCATION: in the right knee. The etiology of this injury/condition is unknown. RELATIONSHIP TO INJURY: This condition is not related to a specific injury. INJURY MECHANISM: The injury resulted from no known physical event. PAST EVALUATION: The patient has been previously evaluated by a primary care provider and by the following specialty: Orthopedic evaluation by Breezy Murray MD. REVIEW OF PAST DIAGNOSTICS: have included: x-rays. INTERVAL EVENTS: include . Continues to experience increasing right knee pain. ASSOCIATED SYMPTOMS: include difficulty walking and extremity weakness: lower extremity, right., but no fecal incontinence and no urinary incontinence. FUNCTIONAL LIMITATIONS: The patient's functional status is limited as follows: ability to perform activities of daily living. Review of SystemsROS was reviewed with patient; documented on established patient questionnaire dated 01/16/2020. I feel the ROS to be negative/normal other than Musculoskeletal. Patient maintains at today's visit there has been no change in his/her hematologic history. Active Problems 1. Chronic pain (338.29) (G89.29) 2. Localized osteoarthritis of right knee (715.36) (M17.11) 3. Right knee pain (719.46) (M25.561) Allergies No Known Drug Allergies Updated By: Joe Hernandez; 01/01/2019 1:44:36 PMDenied Adhesive Tape Recorded By: Joe Hernandez; 01/01/2019 1:27:43 PM Iodinated Contrast Media Recorded By: Julius Hernandez; 01/01/2019 1:27:43 PM Latex Recorded By: Joe Hernandez; 01/01/2019 1:27:43 PM Current Meds Albuterol AERS;Therapy: (Recorded:[id number]) to Recorded Atorvastatin Calcium TABS;Therapy: (Recorded:01Jan2019) to Recorded Baby Aspirin 81 MG CHEW;Therapy: (Recorded:01Jan2019) to Recorded Carvedilol 12.5 MG Oral Tablet;Therapy: (Recorded:01Jan2019) to Recorded Cymbalta 60 MG Oral Capsule Delayed Release Particles;Therapy: (Recorded:[id number]) to Recorded Isosorbide Dinitrate TABS;Therapy: (Recorded:02Moo9664) to Recorded KlonoPIN TABS;Therapy: (Recorded:21Lyu7248) to Recorded Omeprazole TBEC;Therapy: (Recorded:09Nsx2098) to Recorded Plavix 75 MG Oral Tablet;Therapy: (Recorded:45Ofn5272) to Recorded Potassium TABS;Therapy: (Recorded:49Dfo1885) to Recorded Torsemide 20 MG Oral Tablet;Therapy: (Recorded:08Rqb1736) to Recorded traMADol HCl TABS;Therapy: (Recorded:51Vdn9993) to Recorded Tylenol Extra Strength 500 MG TABS;Therapy: (Recorded:16Jan2020) to Recorded Vitamin B- 12 TABS;Therapy: (Recorded:14Wdx8856) to Recorded Vitamin D CAPS;Therapy: (Recorded:45Kho7104) to Recorded Wellbutrin XL 150 MG Oral Tablet Extended Release 24 Hour;Therapy: (Recorded:53Mfk1429) to Recorded Past Medical History History of Aneurysm, cerebral, nonruptured (437.3) (I67.1) History of Chronic headaches (784.0) (R51) Denied: History of anticoagulant therapy History of arthritis (V13.4) (Z87.39) History of cerebrovascular accident (V12.54) (Z86.73) History of chronic obstructive lung disease (V12.69) (Z87.09) Denied: History of coagulation defect History of cystocele (V13.09) (Z87.448) History of emphysema (V12.69) (Z87.09) History of herpes zoster (V12.09) (Z86.19) History of macular degeneration (V12.49) (Z86.69) History of myocardial infarction (412) (I25.2) History of neck pain (V13.59) (Z87.39) History of spinal stenosis (V13.59) (Z87.39) Surgical History History of Appendectomy History of Arterial stent placement History of Cardioverter defibrillator insertion History of Carpal tunnel surgery History of Cholecystectomy History of Eye surgery History of Heart surgery History of Hysterectomy History of Knee surgery History of Permanent pacemaker insertion History of Tonsillectomy History of Wrist surgery Family History Family history of cardiac disorder (V17.49) (Z82.49) Family history of hypertension (V17.49) (Z82.49) Family history of malignant neoplasm (V16.9) (Z80.9) Family history of cardiac disorder (V17.49) (Z82.49) Family history of hypertension (V17.49) (Z82.49) Family history of malignant neoplasm (V16.9) (Z80.9) Family history of cardiac disorder (V17.49) (Z82.49) Family history of hypertension (V17.49) (Z82.49) Family history of diabetes mellitus (V18.0) (Z83.3) Family history of malignant neoplasm (V16.9) (Z80.9) Family history of arthritis (V17.7) (Z82.61) Family history of malignant neoplasm (V16.9) (Z80.9) Social History Active smoker (305.1) (F17.200) Current non-drinker of alcohol (V49.89) (Z78.9) No illicit drug use Retired from employment VitalsVital Signs Recorded: 16Jan2020 10:06AM Systolic: 112, SittingDiastolic: 68, SittingHeart Rate: 84Respiration: 16Pain Scale: 5-6 Physical ExamGeneral: The patient is a well nourished/well developed, female, with a medium build, who is in no acute distress, appears stated age and Patient is in a wheelchair at this appointment (Oxygen tank). Eyes: Lids are atraumatic, no lesions, sclerae are anicteric. Ears, Nose, Mouth, Throat: external ears and nose without trauma. Gait and Station: Gait was antalgic. Respiratory: Normal chest expansion and respiratory effort. Skin: Warm , dry, acyanotic. Psychological: Alert and oriented to person, place and time. Mood and affect are pleasant and appropriate. Judgement intact. Insight normal without delusions or hallucinations. Denies suicidal/homicidal ideation. Assessment 1. Right knee pain (719.46) (M25.561) 2. Localized osteoarthritis of right knee (715.36) (M17.11) PlanMedication:. The patient does not receive any medication prescriptions from this office. Treatment includes: RADIO FREQUENCY: Radio Frequency Pacer Information: Patient states they have a pacemaker / defibrillator., traditional thermal non-pulsed RADIO FREQUENCY ABLATION of the RIGHT, Genicular RF nerve block under fluoroscopy as confirmed by previous successful diagnostic Genicular nerve blocks as deemed appropriate by the interventional physician. This procedure will be done under SEDATION.- Bleeding Disorder: Patient denies having a bleeding disorder. - Anticoagulation therapy: PLAVIX (no stent). Patient Denies Current treatment with anti-coagulation t herapy. Nerve Block: The material risks, benefits, alternatives have been discussed with the patient, including no treatment. They include, but are not limited to, bleeding, bruising, infection, damage to targeted and non-targeted tissue, increased pain, nerve injury or other reaction, if severe, could lead to CVA, arrhythmias or . The patient was given educational materials at the time of the visit. The patient received a copy of our after care instructions. Anticoagulation. Patient is on an anti-coagulant however clearance is not required due to protocol. Patient understands and accepts the risks, benefits and alternatives of stopping, or not stopping, their anticoagulant therapy. Risk of stopping includes, but is not limited to, formulation of embolism (clot) which could result in heart attack, stroke or loss of limb. NERVE BLOCK: The material risks, benefits, alternatives have been discussed with the patient, including no treatment. They include, but are not limited to, bleeding, bruisi ng, infection, damage to targeted and non-targeted tissue, increased pain, nerve injury or other reaction, if severe, could lead to CVA, arrhythmias or . The patient was given procedure instructions and educational material for this specific procedure at the time of the visit. ALREADY SCHEDULED FOR 01/22/[address] ESCOBAR FOLLOW UP: The patient should have a follow up visit 4 weeks post block. CONTINUE TREATMENT: Iris will continue with the following:. Patient will follow up with their PCP. Iris is participating in a home exercise program and is encouraged to continue. - FALL PRECAUTIONS: Iris is encouraged to use necessary assistive devices including walker and wheelchair. Miscellaneous: - ACTIVITY COUNSELING: Discussed use of stationary/recumbent bike and/or continue exercises and stretches patient may have learned at PT. Patient encouraged to increase daily physical activity including ergonomics and aerobic activity. - SMOKING CESSATION: Patient is encouraged to stop smoking. Education material outlining how to quit and how smoking might impact conditions the patient may already have, offered and available to patient at today's visit. - SPECIAL EFFECTS MAKEUP ARTIST: The patient was counseled on the following: treatment plan and future treatment options. Discussion/[id number] yr old female presents with increasing right knee pain. Patient was last seen over 2 months ago. She is here to go over the risks and benefits of her right genicular radiofrequency ablation procedure as this is scheduled for 01/22/[address] Escobar. She has received clearance for pacemaker and for later and is aware to hold liquids and foods 4 hours prior to procedure. Risks and benefits were discussed with patient. She will follow up 4 weeks post block at her already scheduled follow-up. Patient is agreeable. Signatures Electronically signed by : Raya Gutierrez NP; Jan 16 2020 10:47AM EST (Author) Electronically signed by : Kane Escobar MD; Jan 16 2020 1:09PM EST Name Value Range Interpretation Code Description Data Elvie rce(s) Supporting Document(s) ID Date Data Source [id number] 01/02/2020 07:31:01 PM EST [facility] Name Value Range Interpretation Code Description Data Elvie rce(s) Supporting Document(s) SODIUM 143 mmol/L (136-145) [facility] POTASSIUM 4.3 mmol/L (3.6-5.2) [facility] CHLORIDE 104 mmol/L (100-108) [facility] CO2 34 mmol/L (22-31) H [facility] ANION GAP 5 mmol/L (7-16) L [facility] UREA NITROGEN 32 mg/dL (7-24) H [facility] CREATININE 1.65 mg/dL (0.60-1.00) H [facility] BUN/CREAT RATIO 19.4 RATIO (10.0-20.0) [facility] GLUCOSE 164 mg/dL (70-99) H [facility] CALCIUM 8.9 mg/dL (8.4-10.2) [facility] GFR 30 ml/min/1.73m2 (>59) L [facility] GFR ( AMER) 37 ml/min/1.73m2 (>59) L [facility] GFR INTERPRETATION [facility] --NORMAL KIDNEY FUNCTION OR MILD DISEASE - GFR >OR= 60CHRONIC KIDNEY DISEASE - GFR 15 - 59RENAL FAILURE - GFR <15 Est. GFR calculation based on the MDRDstudy equation, which assumes a steadystate for creatinine. Est. GFR should notbe used for medication dosing. ID Date Data Source [id number] 11/25/2019 07:59:34 PM EST [facility] Name Value Range Interpretation Code Description Data Elvie rce(s) Supporting Document(s) TOTAL PROTEIN 6.7 g/dL (6.4-8.2) [facility] ALBUMIN 3.2 g/dL (3.2-4.5) [facility] GLOBULIN 3.5 g/dL (2.7-4.3) [facility] ALB/GLOB RATIO 0.9 RATIO [facility] BILIRUBIN,TOTAL 0.2 mg/dL (0.0-1.0) [facility] BILIRUBIN,CONJUGATED <0.1 mg/dL (0.0-0.3) [facility] BILIRUBIN,UNCONJ. (0.0-0.7) [facility] ALKALINE PHOSPHATASE 110 U/L (45-117) [facility] AST (SGOT) 21 U/L (11-39) [facility] ALT (SGPT) 29 U/L (12-78) [facility] ID Date Data Source [id number] 11/27/2019 06:00:20 PM EST [facility] Name Value Range Interpretation Code Description Data Elvie rce(s) Supporting Document(s) HEPATITIS B S AG @ (NEG) [facility] HEP. B CORE IGM @ (NEG) [facility] HEPATITIS A AB IGM @ (NEG) [facility] HEPATITIS C AB @ (NEG) [facility] NOT INFECT ED WITH HCV, UNLESS RECENTINFECTION IS SUSPECTED OR OTHER EVIDENCEEXISTS TO INDICATE HCV INFECTION. 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 Patient was asked and denies being seen by any Physicians since their last visit. At today's visit patient presents with their Self Patient is not currently working. The patient is being seen for a follow-up. Pain Quality: (Neuropathic) burning Pain Quality: (Nociceptive) aching and sharp Timing: intermittent. Progression: worsening Palliation: block Exacerbating: standing and walking Pain Score: a current pain level of 4/10, a minimum pain level of 4/10 and a maximum pain level of 9/10. Condition type: The patient is being seen for a chronic condition. PCP Je Meza NP. PAIN LOCATION: in the right knee. The etiology of this injury/condition is unknown. RELATIONSHIP TO INJURY: This condition is not related to a specific injury. INJURY MECHANISM: The injury resulted from no known physical event. PAST EVALUATION: The patient has been previously evaluated by a primary care provider and by the following specialty: Orthopedic evaluation by Breezy Murray MD. REVIEW OF PAST DIAGNOSTICS: have included: x-rays. INTERVAL EVENTS: include . Reports increasing right knee pain. Reports that there were logistics with delaying with the clearance approval of her pacemaker and defibrillator. Reports she has sustained multiple falls due to leg weakness and has been engaging in sessions of physical therapy which has been helpful in strengthening her lower extremities. ASSOCIATED SYMPTOMS: include difficulty walking and extremity weakness: lower extremity, right., but no fecal incontinence and no urinary incontinence. FUNCTIONAL LIMITATIONS: The patient's functional status is limited as follows: ability to perform activities of daily living. Review of SystemsROS was reviewed with patient; documented on established patient questionnaire dated 11/11/2019. I feel the ROS to be negative/normal other than Musculoskeletal. Patient maintains at today's visit there has been no change in his/her hematologic history. Active Problems 1. Chronic pain (338.29) (G89.29) 2. Localized osteoarthritis of right knee (715.36) (M17.11) 3. Right knee pain (719.46) (M25.561) Allergies No Known Drug Allergies Updated By: Joe Hernandez; 01/01/2019 1:44:36 PMDenied Adhesive Tape Recorded By: Joe Hernandez; 01/01/2019 1:27:43 PM Iodinated Con trast Media Recorded By: Joe Hernandez; 01/01/2019 1:27:43 PM Latex Recorded By: Joe Hernandez; 01/01/2019 1:27:43 PM Current Meds Albuterol AERS;Therapy: (Recorded:01Jan2019) to Recorded Atorvastatin Calcium TABS;Therapy: (Recorded:01Jan2019) to Recorded Baby Aspirin 81 MG CHEW;Therapy: (Recorded:01Jan2019) to Recorded Carvedilol 12.5 MG Oral Tablet;Therapy: (Recorded:01Jan2019) to Recorded Cymbalta 60 MG Oral Capsule Delayed Release Particles;Therapy: (Recorded:01Jan2019) to Recorded Isosorbide Dinitrate TABS;Therapy: (Recorded:01Jan2019) to Recorded KlonoPIN TABS;Therapy: (Recorded:01Jan2019) to Recorded Omeprazole TBEC;Therapy: (Recorded:01Jan2019) to Recorded Plavix 75 MG Oral Tablet;Therapy: (Recorded:01Jan2019) to Recorded Potassium TABS;Therapy: (Recorded:01Jan2019) to Recorded Torsemide 20 MG Oral Tablet;Therapy: (Recorded:11Fuf6306) to Recorded traMADol HCl TABS;Therapy: (Recorded:01Jan2019) to Recorded Vitamin B-12 TABS;Therapy: (Recorded:01Jan2019) to Recorded Vitamin D CAPS;Therapy: (Recorded:01Jan2019) to Recorded Wellbutrin XL 150 MG Oral Tablet Extended Release 24 Hour;Therapy: (Recorded:01Jan2019) to Recorded Past Medical History History of Aneurysm, cerebral, nonruptured (437.3) (I67.1) History of Chronic headaches (784.0) (R51) Denied: History of anticoagulant therapy History of arthritis (V13.4) (Z87.39) History of cerebrovascular accident (V12.54) (Z86.73) History of chronic obstructive lung disease (V12.69) (Z87.09) Denied: History of coagulation defect History of cystocele (V13.09) (Z87.448) History of emphysema (V12.69) (Z87.09) History of herpes zoster (V12.09) (Z86.19) History of macular degeneration (V12.49) (Z86.69) History of myocardial infarction (412) (I25.2) History of neck pain (V13.59) (Z87.39) History of spinal stenosis (V13.59) (Z87.39) Surgical History History of Appendectomy History of Arterial stent placement History of Cardioverter defibrillator insertion History of Carpal tunnel surgery History of Cholecystectomy History of Eye surgery History of Heart surgery History of Hysterectomy History of Knee surgery History of Permanent pacemaker insertion History of Tonsillectomy History of Wrist surgery Family History Family history of cardiac disorder (V17.49) (Z82.49) Family history of hypertension (V17.49) (Z82.49) Family history of malignant neoplasm (V16.9) (Z80.9) Family history of cardiac disorde r (V17.49) (Z82.49) Family history of hypertension (V17.49) (Z82.49) Family history of malignant neoplasm (V16.9) (Z80.9) Family history of cardiac disorder (V17.49) (Z82.49) Family history of hypertension (V17.49) (Z82.49) Family history of diabetes mellitus (V18.0) (Z83.3) Family history of malignant neoplasm (V16.9) (Z80.9) Family history of arthritis (V17.7) (Z82.61) Family history of malignant neoplasm (V16.9) (Z80.9) Social History Active smoker (305.1) (F17.200) Current non-drinker of alcohol (V49.89) (Z78.9) No illicit drug use Retired from employment VitalsVital Signs Recorded: 11Nov2019 01:57PM Height: 5 ft 2 inWeight: 158 lb BMI Calculated: 28.9BSA Calculated: 1.73Systolic: 128, SittingDiastolic: 72, SittingHeart Rate: 94Respiration: 16Height measured w/wo shoes: w/shoesPain Scale: 4 Physical ExamGeneral: The patient is a well nourished/well developed, female, with a medium build, who is in no acute distress, appears stated age and Patient is in a wheelchair at this appointment. Eyes: Lids are atraumatic, no lesions, sclerae are anicteric. Ears, Nose, Mouth, Throat: external ears and nose without trauma. Gait and Station: Gait was antalgic. Respiratory: Normal chest expansion and respiratory effort. Skin: Warm, dry, acyanotic. Psychological: Alert and oriented to person, place and time. Mood and affect are pleasant and appropriate. Judgement intact. Insight normal without delusions or hallucinations. Denies suicidal/homicidal ideation. S1, S2 heard with no murmur noted. Lung sounds are clear to auscultation bilaterally. No redness or effusion noted. Pain and tenderness noted in the medial and lateral aspect of the right knee joint. Assessment 1. Right knee pain (719.46) (M25.561) 2. Localized osteoarthritis of right knee (715.36) (M17.11) Plan 1. Pacemaker/ ICD ([facility]) Referral Diagnostic Diagnostic Status: Hold For - Scheduling Requested for: [id number] HAS A DEFIBRILLATORHEALTHALLIANCE [facility] Triage Clearance Initial : Please task the [facility] Clearance Intiial Task BoardImportant information regarding your appointment : If you cannot make your RF appointment please call [facility]ac[facility] or ICD : PacemakerClearance Status : Clearance Needed per Protocol 2. RF (Genicular) W/Cardiac implant device ([facility]) Referral Procedure Procedure Status: Complete Done: 11Nov2019 02:12PMRequest Type : MedicareIf no sedation document reason : Document in your note reason patient declined sedationSedation (Strongly Recommended) : YesIs patient taking a biologic? : NoGenicular Side : RightPlace Pacemaker/ICD order : Place Pacemaker/ICD OrderCardiac Implant Device : Pacemak erProfessional Mold Hoister needed for block? : NoIs this an MVP patient (for RF's only)...........?? : No, this is not an MVP PatientFront Desk Reminder: : Schedule the Status Post BlockGenicular Provider : Kane Escobar weight: SODS: </= 450 lbs. HODS: </= 400 lbs. ENTER WEIGHT: : 158Must be scheduled at HODS or SODS only : [facility] locationRadio Frequency statement : Ordering a traditional thermal non-pulsed radiofrequency as deemed appropriate by the interventional physician Medication:. The patient does not receive any medication prescriptions from this office. Treatment includes: RADIO FREQUENCY: Radio Frequency Pacer Information: Patient states they have a pacemaker / defibrillator.- Radio Frequency Detail I am ordering a, traditional thermal non-pulsed RADIO FREQUENCY ABLATION of the RIGHT, Genicular RF nerve block under fluoroscopy as confirmed by previous successful diagnostic Genicular nerve blocks as deemed appropriate by the interventional physician. This procedure will be done under SEDATION.- Bleeding Disorder: Patient denies having a bleeding disorder. - Anticoagulation therapy: PLAVIX (no stent). Anticoagulation. Patient is on an anti-coagulant however clearance is not required due to protocol. Patient understands and accepts the risks, benefits and alternatives of stopping, or not stopping, their anticoagulant therapy. Risk of stopping includes, but is not limited to, formulation of embolism (clot) which could result in heart attack, stroke or loss of limb. NERVE BLOCK: The material risks, benefits, alternatives have been discussed with the patient, including no treatment. They include, but are not limited to, bleeding, bruising, infection, damage to targeted and non-targeted tissue, increased pain, nerve injury or other reaction, if severe, could lead to CVA, arrhythmias or . The patient was given procedure instructions and educational material for this specific procedure at the time of the visit. FOLLOW UP: The patient should have a follow up visit 4 weeks post block. CONTINUE TREATMENT: Iris will continue with the following:. Patient will follow up with their PCP. Iris is participating in a home exercise program and is encouraged to continue. Miscellaneous: - ACTIVITY COUNSELING: Discussed use of stationary/recumbent bike and/or continue exercises and stretches patient may have learned at PT. Patient encouraged to increase daily physical activity including ergonomics and aerobic activity. - SPECIAL EFFECTS MAKEUP ARTIST: The patient was counseled on the following: treatment plan and future treatment options. Discussion/[id number] yr old female presents with increasing right knee pain. Patient reports reports she has been having more right knee pain. She reports that it has been a delay in obtaining clearance and she did get clearance sent to her address two weeks ago. Since her block order has been over 2 months and ongoing symptoms, I will place an order for the right genicular radiofrequency ablation to help provide longer relief to her knee pain after receipt of clearance for her pacemaker and defibrillator from Dr. Hernandez, her jewelry bench worker. Risks and benefits were discussed with patient. She will follow up 4 weeks post radiofrequency ablation procedure. She is encouraged to continue physical therapy to help strengthen her lower extremities. Patient is agreeable with plan. Signatures Electronically signed by : Raya Gutierrez NP; Nov 11 2019 4:54PM EST (Author) Electronically signed by : Neville Schmidt MD; Nov 12 2019 11:38AM EST Name Value Range Interpretation Code Description Data Elvie rce(s) Supporting Document(s) ID Date Data Source [id number] 11/10/2019 07:31:47 PM EST [facility] Name Value Range Interpretation Code Description Data Elvie rce(s) Supporting Document(s) WBC 5.8 10*3/uL (4.1-11.0) [facility] - [facility] RBC 3.20 10*6/uL (4.00-5.40) L [facility] - [facility] HGB 9.8 g/dL (12.0-16.0) L [facility] - [facility] HCT 30.6 % (36.0-47.0) L [facility] MCV 95.6 fL (80.0-95.0) H [facility] - [facility] MCH 30.5 pg (27.0-32.0) [facility] MCHC 31.9 g/dL (32.0-36.0) L [facility] RDW 14.9 % (10.5-14.5) H [facility] - [facility] PLT 214 10*3/uL (150-450) [facility] MPV 7.3 fL (7.1-10.7) [facility] [place] [facility] [place] - C[facility] ID Date Data Source [id number] 11/10/2019 08:04:32 PM EST [facility] Name Value Range Interpretation Code Description Data Elvie rce(s) Supporting Document(s) SODIUM 143 mmol/L (136-145) [facility] [place] [facility] POTASSIUM 4.6 mmol/L (3.6-5.2) [facility] [place] [facility] - [facility] CHLORIDE 109 mmol/L (100-108) H [facility] [place] [facility] - [facility] CO2 28 mmol/L (22-31) [facility] [place] [facility] - [facility] ANION GAP 6 mmol/L (7-16) L [facility] [place] [facility] - [facility] UREA NITROGEN 21 mg/dL (7-24) [facility] - [facility] CREATININE 1.49 mg/dL (0.60-1.00) H [facility] - [facility] BUN/CREAT RATIO 14.1 RATIO (10.0-20.0) [facility] [place] [facility] - [facility] GLUCOSE 107 mg/dL (70-99) H [facility] [place] [facility] - C[facility] CALCIUM 8.3 mg/dL (8.4-10.2) L [facility] [place] [facility] - [facility] TOTAL PROTEIN 6.4 g/dL (6.4-8.2) [facility] - [facility] ALBUMIN 3.1 g/dL (3.2-4.5) L [facility] [place] [facility] - C[facility] GLOBULIN 3.3 g/dL (2.7-4.3) [facility] [place] [facility] - [facility] ALB/GLOB RATIO 0.9 RATIO [facility] - CORE ALKALINE PHOSPHATASE 132 U/L (45-117) H [facility] [place] [facility] - CORE BILIRUBIN,TOTAL 0.2 mg/dL (0.0-1.0) [facility] - [facility] AST (SGOT) 549 U/L (11-39) H [facility] [place] [facility] - [facility] ALT (SGPT) 127 U/L (12-78) H [facility] [place] [facility] - [facility] GFR 34 ml/min/1.73m2 (>59) L [facility] - [facility] GFR ( AMER) 42 ml/min/1.73m2 (>59) L Labo [facility] [place] [facility] - CORE GFR INTERPRETATION [facility] [place] [facility] - CORE --NORMAL KIDNEY FUNCTION OR MILD DISEASE - GFR >OR= 60CHRONIC KIDNEY DISEASE - GFR 15 - 59RENAL FAILURE - GFR <15 Est. GFR calculation based on the MDRDstudy equation, which assumes a steadystate for creatinine. Est. GFR should notbe used for medication dosing. ID Date Data Source [id number] 11/10/2019 08:04:32 PM EST [facility] [place] [employer] Name Value Range Interpretation Code Description Data Elvie rce(s) Supporting Document(s) DIGOXIN 1.1 ng/mL (0.8-2.0) [facility] [place] [facility] [employer] - CORE ID Date Data Source [id number] 11/10/2019 08:04:32 PM EST [facility] [employer] - CORE Name Value Range Interpretation Code Description Data Elvie rce(s) Supporting Document(s) FERRITIN @ 1595 ng/mL (8-252) H [facility] [place] ID Date Data Source [id number] 11/10/2019 08:04:32 PM EST [facility] [place] Name Value Range Interpretation Code Description Data Elvie rce(s) Supporting Document(s) IRON,TOTAL @ 73 ug/dL (35-150) [facility] [employer] - CORE UIBC @ 229 ug/dL (130-375) [facility] [place] [facility] [employer] - CORE TIBC @ 302 ug/dL (250-450) [facility] [place] [facility] [employer] - CORE % SATURATION 24 % (12-50) [facility] [employer] - CORE ID Date Data Source [id number] 11/10/2019 08:04:32 PM EST [facility] [place] Name Value Range Interpretation Code Description Data Elvie rce(s) Supporting Document(s) MAGNESIUM 2.1 mg/dL (1.7-2.4) [facility] [place] [facility] [employer] - CORE ID Date Data Source [id number] 10/28/2019 05:52:33 AM EST [facility] INFORMATIONPatient MRN Name Date of Age Gend*PT [id number] Janeen Jefferson 1945 74 years F EDPT Location Admission Date/Time Visit ID Attending [id number] 10/27/19 0056 --- --- EPI ID CSN Admitting Provider [id number] ---Provider in Triage NotesNo notes on fileHistory of Present IllnessChief ComplaintPatient presents with Extremity Weakness Increased weakness, fall x four in last three days74 y/o female, with PMH of HTN, DM, CKD, TIA (six years ago), and peripheralneuropathy who [facility] c/oincreased extr emity weakness onset a few weeks ago. Pt reports four falls in thelast three days. The pt also c/o ongoing diarrhea. The pt ambulates with awalker due to balance issues since the stroke. Pt denies any weakness followingthe stroke. Pt takes 81 mg Aspirin. Pt reports a meniscus problem in her rightknee for the past 2.5 years. Pt says that nothing improves sx, and nothingworsens sx. No treatments were attempted at home AREA COORDINATOR. Pt denies fever, chills,cough, congestion, SOB, chest pain, BLE swelling, abd pain, N/V, urinary sxs, HAor any further sx. Pt denies a pmhx of Parkinson's. 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 Lakisha MEZA, [facility] / NHRMCistory provided by: PatientLanguage tour counselor used: NoHistoryPa Medical History:Diagnosis Date Aneurysm Carotid artery occlusion Cataracts, bilateral CHF (congestive heart failure) CKD (chronic kidney disease), stage III Dr. Carroll in the past, currently sees Dr. Mirza COPD (chronic obstructive pulmonary disease) O2 2.5 l.min via nasal cannula qHS Coronary artery disease multiple stents; most recent cardiac cath with "stable" CAD (07/2014), sees Depression Diabetes mellitus Fibromyalgia GERD (gastroesophageal reflux disease) History of fall History of pancreatitis gallstone pancreatitis History of transfusion Hypertension Myasthenia gravis Normocytic anemia Osteoarthritis "all over" Peripheral neuropathy Spinal stenosis Stroke Syncope TIA (transient ischemic attack) Wears denturesPast Surgical History:Procedure Laterality Date APPENDECTOMY CAROTID ARTERY ANGIOPLASTY CARPAL TUNNEL RELEASE CHOLECYSTECTOMY CORONARY STENT PLACEMENT CYSTOCELE REPAIR 2006 cystocele, rectocele repair EYE SURGERY Bilateral strabismus FRACTURE SURGERY Left 08/06/2018 Procedure: OPEN REDUCT INTERNAL FIXATION LEFT WRIST DISTAL RADIUS/ULNA W C ARM;Surgeon: Danial Zheng Jr., MD; Laterality: Left; MD AVAIL @ 1600 HYSTERECTOMY REPAIR RECTOCELE 2007 TONSILLECTOMY TUBAL LIGATION VASCULAR SURGERY Left 10/19/2014 Procedure: LEFT CAROTID ENDARTERECTOMY WITH DVF; Surgeon: Maicol Blanchard MD;Location: [facility]; Service: Vascular; Laterality: Left;Family HistoryProblem Relation Age of Onset Cancer Mother cervical Cancer Father bone Heart disease Father Lung cancer Sister Cancer Sister Prostate cancer Brother Malig Hyperthermia Neg HxSocial HistoryTobacco Use Smoking status: Former Smoker Packs/day: 0.10 Years: 50.00 Pack years: 5.00 Types: Cigarettes Last attempt to quit: 05/25/2018 Years since quittin.4 Smokeless tobacco: Never Used Tobacco comment: pt. states she smokes 1 cig a daySubstance Use Topics Alcohol use: No Drug use: NoROSReview of SystemsConstitutional: Negative for chills, diaphoresis and fatigue.HENT: Negative for congestion, ear pain, rhinorrhea and sore throat.Eyes: Negative for pain and visual disturbance.Respiratory: Negative for cough, shortness of breath and wheezing.Cardiovascular: Negative for chest pain and palpitations.Gastrointestinal: Negative for abdominal pain, diarrhea, nausea and vomiting.Endocrine: Negative for polydipsia, polyphagia and polyuria.Genitourinary: Negative for difficulty urinating, flank pain and urgency.Musculoskeletal: Negative for arthralgias and myalgias.Skin: Negative for pallor and rash.Neurological: Positive for weakness (extremities). Negative for dizziness,tremors, seizures and light-headedness.Psychiatric/Behavioral: Negative for confusion. The patient is notnervous/anxious.Physical ExamBP 132/57 (BP Location: Right upper arm, Patient Position: Lying) | Pulse 67 |Temp 98 F (Oral) | Resp 18 | Ht 65" | Wt 67.1 kg | SpO2 100% | BMI 24.63kg/m Physical ExamConstitutional: She is oriented to person, place, and time. She appearswell-developed and well-nourished. No distress.Elderly. Frail.HENT:Head: Normocephalic and atraumatic.Mouth/Throat: Oropharynx is clear and moist.Eyes: Pupils are equal, round, and reactive to light. Conjunctivae, EOM and lidsare normal. No scleral icterus.Neck: Normal range of motion. Neck supple.Cardiovascular: Normal rate, regular rhythm, normal heart sounds and intactdistal pulses.No murmur heard.Pulmonary/Chest: Effort normal and breath sounds normal. No respiratorydistress. She has no decreased breath sounds. She has no wheezes. She has norhonchi. She has no rales.Abdominal: Soft. She exhibits no distension and no mass. There is no tenderness.There is no rebound and no guarding.Musculoskeletal: Normal range of motion. She exhibits tenderness (right hip).She exhibits no edema or deformity.Radial and pedal pulses symmetric and equal to palpation.Neurological: She is alert and oriented to person, place, and time. She hasnormal strength. No cranial nerve deficit or sensory deficit. She exhibitsnormal muscle tone. Coordination normal.Skin: Skin is warm and dry. No rash noted. She is not diaphoretic. No erythema.No pallor.Psychiatric: She has a normal mood and affect. Her behavior is normal. Thoughtcontent normal.Nursing note and vitals reviewed.ED CourseECG 12 leadDate/Time: 10/27/2019 4:14 AMPerformed by: Leydi Melendrez MDAuthorized by: HUMA Hill interpreted by ED Physician in the absence of a jewelry bench worker: yesPrevious ECG: Previous ECG: Compared to current Comparison ECG info: August 2018Rate: ECG rate: 64Rhythm: Rhythm: sinus rhythmQRS: QRS axis: Normal QRS intervals: NormalST segments: ST segments: no ST elevations or depressions.Q waves: Q waves: V1 and U3Huupekrx: First degree AV block.EKG reviewed and interpreted by Leydi Melendrez MD.MDMNumber of Diagnoses or Management OptionsContusion of right hip, initial encounter:Dizziness:Multiple falls:Weakness:Diagnosis management comments: DDx: Electrolyte imbalance, adverse drugreaction, thyroid causes, metabolic causes, anemia, dehydration,hypo/hyperglycemia, coronary artery disease, arrhythmia, TIA/ CVA, infectiousetiologyPlan: Blood work, UA, imaging studies, EKG, and reassessment.4:16 Rosemary reassessment, patient is comfortable and there is no right hip fracture. Idiscussed with Dr. Espitia.Amount and/or Complexity of Data ReviewedClinical lab tests: ordered and reviewedTests in the radiology section of CPT : ordered and reviewedTests in the medicine section of CPT : ordered and reviewedReview and summarize past medical records: yesIndependent visualization of images, tracings, or specimens: yesLab WorkResults for orders placed or performed during the hospital encounter of 10/27/19CBC and differentialResult Value Ref Range WBC 6.0 4.1 - 11.0 10*3/uL RBC 3.15 (L) 4.00 - 5.40 10*6/uL Hemoglobin 9.7 (L) 12.0 - 16.0 g/dL Hematocrit 30.4 (L) 36.0 - 47.0 % MCV 96.5 (H) 80.0 - 95.0 fL MCH 30.7 27.0 - 32.0 pg MCHC 31.8 (L) 32.0 - 36.0 g/dL RDW 14.6 (H) 10.5 - 14.5 % Platelets 207 150 - 450 10*3/uL MPV 6.9 (L) 7.1 - 10.7 fL Neutrophils % 55.8 35.0 - 75.0 % Lymphocytes Relative 31.3 16.0 - 52.0 % Monocytes Relative 8.9 (H) 0.0 - 8.0 % Eosinophils Relative 3.2 0.0 - 5.0 % Basophils Relative 0.8 0.0 - 4.0 % Neutrophils Absolute 3.4 1.8 - 7.7 10*3/uL Lymphocytes Absolute 1.9 1.2 - 4.8 10*3/uL Monocytes Absolute 0.5 0.0 - 0.8 10*3/uL Eosinophils Man 0.2 0.0 - 0.5 10*3/uL Basophils Absolute 0.0 0.0 - 0.2 10*3/uLPOCT Basic Metabolic PanelResult Value Ref Range POC Sodium 141 136 - 145 MMOL/L POC Potassium 4.0 3.6 - 5.2 MMOL/L POC Chloride 106 100 - 108 MMOL/L POC CO2 27 22 - 31 MMOL/L POC Anion Gap 8 7 - 16 MMOL/L POC BUN 20 7 - 24 MG/DL POC Creatinine 1.4 (H) 0.6 - 1.0 MG/DL POC BUN/Creatinine Ratio 14.3 10.0 - 20.0 RATIO POC Glucose (iStat) 114 (H) 70 - 99 MG/DL POC Ionized Calcium 4.8 4.6 - 5.3 MG/DL POC GFR 37 (L) >59 ml/min/1.73m2 POC GFR () 45 (L) >59 ml/min/1.73m2 POC GFR Interpretation Performed by: PERFORMED BY [facility] CLINICAL STAFFImaging ResultsCT head without contrastNo acute intracranial hemorrhage. Small left mastoid fluid.X-ray hip complete, RIGHT (Results Pending)ED MedicationsMedications - No data to displayThis was electronically signed by Yossi Fernando acting as scribe forand in the presence of Leydi Melendrez MD, 10/27/19 3:06 AM.ED MD AttestationAttestation of Scribe Documentation: I personally performed the servicesdescribed in the documentation, reviewed the documentation recorded by thejorgeribe in my presence and it accurately and completely records my words andactions.Leydi Melendrez MD 5:52 Cesario Melendrez MD10/28/19 0552 Name Value Range Interpretation Code Description Data Elvie rce(s) Supporting Document(s) ID Date Data Source [id number] 10/27/2019 10:22:44 AM EST [facility] NT INFORMATIONPatient MRN Name Date of Age Gend*PT [id number] Janeen Jefferson 1945 74 years F EDPT Location Admission Date/Time Visit ID Attending [id number] 10/27/19 0056 --- Leydi Melendrez MD([id number]) EPI ID CSN Admitting Provider [id number] --- [facility] DISCHARGE SUMMARYPatient Name: Janeen Jefferson of : 1945 Age 74 yearsPrimary Physician: JE MEZA NP PCP Tfeipxays Date: 10/27/2019 Discharge Date:She will be discharged from [facility] Diagnoses:Principal Problem: Frequent fallsActive Problems: Type 2 diabetes mellitus without complication Fibromyalgia Stage 3 chronic kidney disease Peripheral neuropathy History of TIA (transient ischemic attack)Resolved Problems: * No resolved hospital problems. *Discharge Medications:Current Discharge Medication ListCONTINUE these medications which have NOT CHANGED Detailsacetaminophen (TYLENOL) 500 MG tablet Take 1 tablet by mouth 3 (three) times adayalbuterol (PROVENTIL HFA;VENTOLIN HFA) 108 (90 Base) MCG/ACT inhaler Inhale 2puffs 4 (four) times a day as needed for shortness of breathalum & mag hydroxide-simeth 200-200-20 MG/5ML suspension Take 30 mL by mouth 4(four) times a day as needed for indigestionaspirin EC 81 MG EC tablet Take 81 mg by mouth dailybuPROPion (WELLBUTRIN) 100 MG tablet Take 100 mg by mouth dailyCholecalciferol 77612 units capsule Take 50,000 Units by mouth every 30 (thirty)days!! clonazePAM (KLONOPIN) 0.5 MG tablet Take 0.5 mg by mouth daily as needed foranxiety!! clonazePAM (KLONOPIN) 1 MG tablet Take 1 mg by mouth 2 (two) times a day asneeded for anxietydigoxin (LANOXIN) 125 MCG tablet Take 125 mcg by mouth 3 (three) times a week onSunday, Sunday, and Sundaygabapentin (NEURONTIN) 300 MG capsule Take 600 mg by mouth nightlyipratropium-albuterol (DUO-NEB) 0.5-2.5 mg/mL nebulizer Inhale 3 mL 4 (four)times a day as tpukerN-Hvfwyghrytcl-Ierbv (DEPLIN 15) 15-90.314 MG CAPS Take 1 capsule by mouth dailymagnesium hydroxide (MILK OF MAGNESIA) 400 MG/5ML suspension Take 30 mL by mouthdailyQty: 360 mL, Refills: 0Menthol (ICY HOT) 5 % PTCH Place 3 patches on the skin every 12 (twelve) hoursas needed (for pain to lower back, right knee and left shoulder)Multiple Vitamins-Minerals (PRESERVISION AREDS 2+MULTI VIT PO) Take 1 capsule bymouth dailynitroglycerin (NITROSTAT) 0.[address] 0.4 mg under the tongue every 5(five) minutes as needed for chest painomeprazole (PRILOSEC) 40 MG capsule Take 40 mg by mouth dailypolyvinyl alcohol (LIQUIFILM TEARS) 1.4 % ophthalmic solution Administer 1 dropto both eyes 2 (two) times a daypotassium chloride SA (K-DUR,KLOR-CON) 10 MEQ tablet Take 1 tablet (10 mEqtotal) by mouth every other dayQty: 15 tablet, Refills: 1rosuvastatin (CRESTOR) 10 MG tablet Take 10 mg by mouth dailysacubitril-valsartan (ENTRESTO) 24-26 MG TABS Take 0.5 tablets by mouth 2 (two)times a daysenna-docusate (PERIC OLACE) 8.6-50 MG Take 2 tablets by mouth nightlyQty: 60 tablet, Refills: 1sertraline (ZOLOFT) 100 MG tablet Take 100 mg by mouth dailytorsemide (DEMADEX) 20 MG tablet Take 0.5 tablets (10 mg total) by mouth everyother dayQty: 15 tablet, Refills: 1vitamin B-12 (CYANOCOBALAMIN) 500 MCG tablet Take 500 mcg by mouth dailyEPINEPHrine (EPIPEN 2-MATT) 0.3 MG/0.3ML SOAJ Inject 0.3 mg into the shoulder,thigh, or buttocks once Inject into thigh once for severe allergic reaction !! - Potential duplicate medications found. Please discuss with provider.Follow Up Instructions:The patient was given an after visit yareli sommers.Patient will follow up with pcp today.Brief Hospital Course:74-year-old female with past medical history of essential hypertension, type 2diabetes, chronic kidney disease stage III, CVA, osteoarthritis and peripheralneuropathy who [facility] living withrecurrent falls. According to the patient once she stands and starts to walkher knees give way and she just falls.hasnt injured herself. she does experience intermittent postural lightheadedness but has never lostconsciousness.On arrival she was afebrile with stable vitals.No orthostatic BP drop was noted.labs including CBC, metabolic panel etc. Are stable.CK is Normal. Examination did not show any focal deficits.Patient does not qualify for admission and will be discharged home. [facility].Discharge Exam:Blood Pressure: BP: 120/68 Pulse: Heart Rate: 85Temperature: Temp: 97.2 F Respirations: Resp: 18Admission Weight: Weight: 67.1 kg (148 lb) O2 Sa turation: SpO2: 96 %Discharge Weight: Weight: 67.1 kg (148 lb) BMI: Body mass index is 24.63 kg/m .Physical Exam General alert, pleasant, in no apparent distress HEENT PERRLA, EOMI, fundi benign Lungs clear to auscultation Heart regular rate and rhythm Abdomen soft, non-tender, non-distended, no organomegaly or masses Musculoskeletal Spine ROM normal. Muscular strength intact. Neuro normal without focal findings, mental status, speech normal, alert andoriented x3, KACI and reflexes normal and symmetricDiagnostics:Recent Labs:Results from last 7 daysLab Units WBC 10*3/uL 6.0HEMOGLOBIN g/dL 9.7*HEMATOCRIT % 30.4*PLATELETS 10*3/uL 207Recent Labs 10/27/19034CREATININE -- 1.4*ALKPHOS 112 --ALT 42 --AST 35 --ALBUMIN 2.8* --DONNIE Erickson10:18 AMTotal time spent for discharge on date of discharge: 30 minutes Name Value Range Interpretation Code Description Data Elvie rce(s) Supporting Document(s) ID Date Data Source [id number] 10/27/2019 08:30:36 AM EST [address] [address]J[place] Name: JANEEN JEFFERSONDOB: 1945Sex: FOrdering Provider: LEYDI Doradohoilda Prov: LEYDI MELENDREZReferrhilda Provider: Procedure Performed: CT HEAD WO CONTRASTExam Date: 10/27/2019 02:53MRN: [id number] Number: [id number] Class: EmergencyAccount #: [id number] for Exam: Stroke, follow upataxia getting worse, prior Hx of CVATechnique: Axial images were obtained without IV contrast.One or more of the following dose reduction techniqueswere utilized; automated exposure control, dose modulation, technique adjustment based on patient size and iterativereconstruction algorithms.Comparison: February 2016FINDINGS:There is no acute intracranial hemorrhage, or extra-axial collection.There is no hydrocephalus.The basal cisterns are patent and there is no midline shift.There is no large territorial infarct. Old lacunar infarct in the right caudate head again noted.There is mild low attenuation in the periventricular and subcortical white matter.Small left mastoid effusion.The visualized paranasal sinuses are clear.IMPRESSION:1. No acute intracranial hemorrhage, or large territorial infarct.2. Mild white paul er disease, nonspecific, but usually on the basis of chronic small vessel ischemia.Similar preliminary findings provided by [facility] [employer] upon completion of the study.Report electronically signed by: LUIS RIVERO On 10/27/2019 8:30 AMWorkstation ID: [id number] - [id number] Name Value Range Interpretation Code Description Data Elvie rce(s) Supporting Document(s) ID Date Data Source [id number] 10/27/2019 08:29:38 AM EST [facility] Name Value Range Interpretation Code Description Data Elvie rce(s) Supporting Document(s) EKG [facility] FOPCMj3aTzUKNeSij3XtZePoDLLsVY2cjak5H6K5eRTbC8KgiBGnt2rwW8ThA3EzOLAqDHTSQV7TnKDk jb2 [file] e/QjHFpO2JTpJXnvfM2pjmf/Ovgfa//ornamental iron worker/LIvz5/u4ITyX174DJ0kRC4c15wiC1MJT8tP3WFs+rkAh3q pOy2hTYLPOc2L+OE9uS8stB9dR66HpdHb8bOi4uxmz 9KmFleBCBDczNAHhTJHANktGV8vNL4aVAe6lyHtt8bllA+gHadc04PdcpL4gnT+B3effh9+CeLNGXG/f YPrazVbyN8M3gGJ7CDRs8ShcowDmftxhdO7CUj7XZ7YJf2AVW0UOA1HK89U68BlVZ2Csg73QEwUy/amadeo [file] Tm09TkvpkruvhWwcZrjwWTz7o5Vo+v3QxCBhbvO2vFN7Cq8Yj57Hg5x5kbGgA/MH++c3znY/585/Ernestina+6 nn+gH7aRf1kd7/HAsb7yG943NhR+t/5EoE3x2i3Aao /jVij8uuZLeMNV0vLYb0N+yPfe4/8ljeIYDv2Z3T/bHP88c+b/4NsSzm6+Krz1C0En+3P+f99lz93v3W n+1P/Nn+xJ/9T/zZ/6zf+5/1e/f2y9m9/XJ2H/+R3cd/RPbpJ8b7/RUm4Q2LhR6A9trUw5tdPtOiXw75 Ky0ic2q/1GjC5tJ5wRE3/CTal9Xm7Ho+8zG2r+eRYz jm539Pkozf14cW2br/ZP/gR3bMY3i3ubRtUHRKoa5wt/rXeSI8r5pGatk94rjF7V+8GNPL1m+f5GK3l1 p3exiVbU+C68GU0z6a34Lp//Gf/Y//dWN1Y9d/WP/D3H/l2M08TzXvBTxR1Z1s9WuiM+bxZ/7Oo5EyR0 6xbt2YlRpdAYTE2N9vJ/yto70byAKo/rB2nRPuwdkz ge5er72+zufjGlK4kyVTns6Pb9T//ZG6us7aDWxWCcuUCA/JVQHHdwa/I/jPx/IPK/sakyRgQtPwmo5o pfkQl2NMD+6Z125gBWMoZPe/GXgf/edl+AlNCjGp025Y6AAm+BnMBynK6Y1dW6oc+E1NEA5G1fivlNwv vICJYLPqz0cy+hT7IgW5sat/L+P6COek/8fN4avX4+ cd33nZ/MPWH+brozu+kyz9+M5Cl82y+c8/4ztz/Ml/3vGdLKX/iT/Hn/hz/Ik/xx//FAl7Wf3adBF21w vv+O9RZY97/uQ/7/hOPJ3u+B2VjzKbg6DnkhE2MX/JJwLHd/YrP+h/8MdK2b5v15ukCEX7wd7Lp4Mci9 Zv96Mybq53Nh39/9Z4gtEbFKP1kxJ/Ernestina/MD14D30KU z+Wd4IA5aOaf6kEnvIXLymde5LRHUBh9TY6hU3atR/5z+Wd0KaCLmU67mZieYk0/l8PHz+X4k/8cf9bv 40/8Of7En+ESCALATOR OPERATOR/QtPj19QVlj0d72OV/2HjCHE6tiEu/+gNOExH/9BaYJY/wKszt6o/1Juecd2/4k/x5/4 c/yJP8ef+HPe+YFQfI7s3hQkWWEsyVMDLMu/0oTqtn CVCa/6Pxb8X0anoesdfc+MNfYase9g0w3AgnybjallRyG3LdEm6COLu6e3AHhwGL39iRnrBpA6K7dDzU q3YeLzegJ2p51yiw15RjiAFcffXdYgrpzKLSlnYcBUdtdOWXnFoRVO/zboEdi+A9TVnsoNSaKkazYPMQ puBQlyGOr0JQOGuH2M5sxkTNZA9wAWUeG0Vj9buTCN xS26M9O7bt9oOSHGkZKqT4SjwXfiPGQIBj7pJFFfRqjMANtC7SWbE3B5kHRH2yR4IBgHEZ0X5tgCVssS zIkxIeP02LeByQGRAcJ0rHZAHHTqLXPZJMLsb+5kfowsJ+l3RVRNE4IygmSuSMuasy8KkRGK8fgRVlOt Y9KSdIpWYPWaG7CY4UeS21uUBfpZXTeFwsnyEmgw39 NCNlW3BzHiKPNwNuTKgvLCeIVFEF4gCwjIRAlvS135CmoK9I4J6zOquf9DRFD5qlIWHeN9TrOhzM9Vln 8yxK3U2u5D76odSr2YncnGBdilNkZlZV2FpKzibmjkr1tlNefpxAicMHJShTJAVCkFI+xbBs7DdVfAuh VcUB4tENY7PA6wSflF0qfiUWLH30BHGXPyJ0SPNk3S CmBmFERugIVIVxx2r8D0ICc8BVwLKjOvsqxtTbjAFWkwtlSGIiEg6FpXb0CjF/8Poh4fQ+ggABOH8ASH tIybVuaWrPJG2crTIMK/vel5GNzmIuwR7VoGvE+R6WYirFOtY0F1jtd38K9w08epc+1osM1IIl8d41bo X+PaTo4R+Df+baCowNdA2YHY/0Zi/l84tpsPdeQ0he 6jxv8I/Xgp3PSLpMCsH3pt2j2Nf1yePiaf7l4/1IaU5Otm4vpAqs82JCT9W4v2cMfvXTADxW4gt8kIH+ qghnr+pYaf4KYR4AiJqBEVVW+n1ayAppWnhRU4gHasyYJOwHIW66Bsb/T4LT1+S+tUj/R2SMXaJFoC1O yTtzlF8i53Qt6eFhHzvxseyUtckoxc19iUUnt/RmWs /1jL6hhhsUffslT5XIBvLMxr8DRSgJz2YQDfgdYmQSn/4w3FpY67+7M7+sAdK5yGLubd0JpLbRRfHCii L84ALkMgqNaGYC3puvsfYE+xNUDh1pzwO2JoRhAvZ5yhJWwTnSsDHOWxdIp2PKi1PekXkocd4thYNZbH 8JvU6xYWkBUepbqXHxbz34wZkVTK9u/PA0UWGtw8Bz kNgIA3rEi9o2Gn4NFtoh4yg3jLhLvQR+1Nv0Il/pnzDx1YWXgFlvIcFjJQVb9KIN9YXA252HP9dCuOGK tE+K4Vnu7VeZsuf72AAk6qqadZYkT9gVp6WeAgiY2rIcrNOTxCTkzBVUyxEMRfg6fmaOpj9jlRuf3ZWP UedZpI5Q2XHkiFbhoqbCEKtyGvmBVsnu9ZFowZmwVp aXTShmTucF5ZJxsfgk9gM0QqFSwnq7zkBbvNv/PHdrdj4wbNidtUjnndAIgE3OZXgQ7k42WSSLBGMalT m1j0um6YmdE6hQa9qg5aagg8VxkOekAthHeuisrIYkIYWZMCuOjs96J4O06ph+0lu92oCwFHnwn90pxo va9A4c4QpbDA+kuOliRBKHdJOEknlhrhaMlLbOngoy QLW7ytq1FGOl6OTS83jTqxMpn/1t2/+QxL3R6pYLymhu6DrXpcdaLep5/vqPaAflWSP8yA8csiJfiBtv JsVX6yBnQVgoCU/4hvCL23dQOgRNhSOvZmXHhRvbFzY0WSAbijyQG/HPwb/7h2DkJ5YdABijL7zplOat TRksnRkvx+wu8AZPiwxo7FI4iFbDBt0ESpuqx8ixUa yUUb14fv2v98+jVmB8jr3DB7YVDxEE3cgnvlde/NwMw58TTqldKNwjSklgYQT0zyUw2DtCrpF3kRXoZ0 uet2fxL5BNEOqjs2/IYwRxcDAVjj/d2GefSCK5xp1/7W8wfl2eosjwe7eC56zpYhCmHtb69NyEpUZyKc 9zERylFXgVCua+/9kk07KyLPXaGsJXYvIGCKr1eNdp haZvawPORxqzldWfY3ULVm8QNV2ARIR9X9Tk7wPnmQzLb9KqDQblYFpRW4VaFP1xULLjDYIb3MQmcPl7 sk5ISc48pW5m2drXZffurgP4zFZ5NB5by7j+VUgoseJDjD4JKHykACJlEi78SMDt8KerSDkWxTrYv4px kmooIabig76MO28BJ29EBrjundQL+XTCdWdRhedRge ra5V9ZCl1DLGRWyOzF4mmXJkj8Sfef96ZG57OIaNrhURZu+uU4VayGpzt5y7zngTJhk29QXtHlfkp5TI OV+SZFoWmPMl+x4jLz1nKRHJVmJ6eZahy+CRxtRWr2VHs6SEf6EtA5qWq3TeUIn5OHAgMEEcSBZbVIaR e4ZhxwAnDcgqaFuWmNg2nD77oCp5ItwICT+7OwjlLr Jl2NBTQ2bLQkpOpGIyFuaITOVE4X6lOti3nMy2vEt3Cn09LaSwIeb//7yV5u+z+t/6NaH/f//zfYIC/v c/3+cUo5ydRGp0v/10PLqsAWTencXmLn2UJSqqiKeu4CCsotP5kyqnFH7s0bnNY0x34vQLrd57fHDomz 9qsiyaA3mcnuvR6InrntO0jzxmWU0cgtqB30qf7hI8 klJ8pq2ocJ4f1YlXIvw43zHMse90fJWewf7i2abyH1c7sLsnrqgs+cJpuBnuD/9fmWb/NS+AoQa3EvhI 8nAs8Zl1V63EUOYv2UX14WGqbikmS94Jp810iqXqe96kqdgzN6khdgyL7vumPeK7rlmwKK1yqtmID6nx 9aLAxhI4faTkMN1o97mwW3d60efEsm06niGnh44zna jsE8m9lveP8E9ihcD5q9ibMo3wtjgYX9zu2sVXYMdXGUuQG3T4AZfuF6XckHuViE71Kv+IS1JdiUZTjq 1gOr8PGerOq+T6cGsfL1hozazH4qlaWuA4prcJZB1kwzRGI5tr5eTAccP2kbNpEY5i4KpDN7o25rKKlo 72dgIzs14wnzunV1anxkoR1enpujI3w5bnOm1wtqnM P8aj4oRTnhL9slChBN9iYCCnKdTsgAigR//f/3QzEOMTzxNd8lEw4WomYfrPWZ8d1nVyazuAjhi/eP4w Bgn+Ov9HqqQOYcp3n1c9b+y4x/zCStg9v1SXtXI40mzzM/gtOeqz/gB2NavzS2v+Q43KsXbvWxiJb40b 4xs2Ah/hVs+B8rZKYlKsfZQUBX6rtMnv9qlvnO2Te9 91xsIwnSr+B1ha5DZ+/EBeOjDrh37FmM0d+z/cDX/AyTzt9J+w9/AujHMe/l29vglJ+t6aRa3f/A3z3v F9vYU13NEyuSSxF3p3WitPf+Aj/FtMeJGMj8AlV/c4g5czvfU/9PguyefzY9/XvCdDPvp5ePPBat86sp Fp2Sd1rz9m/6uDQDs4/kdZjNWyTFFvF70zBff2/[place] v/RbRHz/q8/xK1DxWoIhz+jN39aM6O4bhKW9rXeh6J5e0Jq8zSqwd1w02+TnMxYaKFZF/35e04Bo7N/9 4B36Iq4ZE6IY0J3+Ol84g0HUrn55s0FrVG7K/fO1bocj+8HnOWU/+Ryo7Wi0Mh976picl/4Xwxeq83bR 7n72pbJjLR/8maod5qM5RmU5iS3hbJ0vlz/vv244vd r/XNwN/+to2iw6277BVZgi9mtE0tyYb/9cHIZ/9uJwI7kgi21w4B/Vit6o1H/QNA/+5hUtW6w/IU7D7f dhiC6iczl/TNZEDJf/Qesy+B/d9t7iq3b+3yZQdvTba95k3vC/9qHnc047t6o+7OfibfhnP/wM8D+3+a Zk6w2sBJmH8+efq/7+8Hq+uqrvDx/h8j8Xh+E0XM8v 4np+UYFdzy/k6ncFE4U9/CI+wuV/Ku6V5rbxekw66qS/xOV/8Hngf/A5y//cvx/r7j4Xv1Ioh/I/tKut 32xE5T3t++HxW/ek/A9x+Z+Gj1FuVodjYzwM4e//c/I5UYBKoP8D/xV7VtI1u0AeLuLabJzQ/VQ5/eGy t1O9VtRwFI2E6adH/ek9ZZ4B/RB3w2U/xNNw2Q/PWf ZDfIQR/xCX/rJqXP5woweZeUXgE7/Din8a/A/Pc4Thf/Z32N0qdlgnB3WprZfA5XWu3zN6Iji2ZgFR/d SztcH/FVS0pFVK/lN9MaA4+B/aj/iabjsh+cs+mad31f6mbB/DTE2rMYZ/xnA8j/N/E+D/9nA6/nnBv 7IWWHDhn5D/xCH4Xy/tQb/s/H3blj+p5n/afA/fG/Z D/BWpx8zCmZnQ8QgS/g88D/YFdgYa6p+Wwhu0fQK+Pxmyw6hL+DpVb3WTRNA/wDL/bG7P1lS5U/QJroK 4Ct4zq/1rGFture9ImZMqpsjB94Sd/x471Fq60thHoJ+57dfAWY1Ur/RzkyzNBxdm35Bs5TeM74pjF/7 ZxTqYj7GWiele6yIr/mfDv9T/66O+DeDhVv6U/6p+9 MR/xBX/JVaU4x6KzpA07Red65uJ7r0x4e56fT/EFf8w/McYcQ/hIF1p3Cj9E3L/ENc8Q+qWd9O2DxKrr /fj3BT/Svk9Prm2p/2J24P1l3DV0CBO13dqBDApEz7/M/FFT/jvVx/1p4mo4Evx1S2y2Di5cn9xrom5e 27eUz8e/3bczi72/A/9bzrQ8+vbv6nw/0OMON4dTef gb+X/6nfQof/gX3C/xCn4fI/HceX/+Hfy/7VY5XYeDkf4mTK/1M+tsP/8O/nz5xc7bQ/FTlG8rtawO7B 5X/wb4T/4d+SVBEm9ndYua35h4mfTnl4JT/DuwkfYcQ/gAWj0J3dR23xdN/Q2rCFedBbRmNj9Wp0vN9S d4GMl9Jup6Wnd4B2G8i1YaH/EB9hxD/IGYlYR04K3d oBufqq2SU10Jk9lZmrNI4Yr1URW4UqK2Kww5Fqt5F5H4m5Ffc/AB/xndzMqFaG1bJvUqp6YN3uLmEuF4 PJfkaX/OeHO6L7L/TRkrcPlSnz9mMz6ajv0nnv+itBRK3x1j/D1l+T2v3twZ6L/Kristen/mfQ/pOefbE9ud D8D64L/4PPA/4V3IydTobcPcLF/3I4lsuv6bhE/0Nc 6sFe1xU/rafalD6I29mOR/wPMfI/FTzg05Q/a57sev24voNxWdrkj6sxaI/B56T/ZQ5xVNJjv4Fh1S2m YJxkIo0SfAzf3EwzsjN35DfdXK2S/RB3w3p+esN82EnHTi0xo4qXN8mZ/sKU6Zt0acs9E2L5SOJP9WVw 8Q/mLDx1Z3/hstzgRd64x2CWA/FPw9+1fp/pi1iCp7 P8T3b8/Wc/wXNW/gT0WLWqw6fs/vzPxGiC+fM/7+9f+8wU8LhT/9yDPpm3y3/CMT/7iYNjfvaTNYBulv /BIMUJ/8U1NxU4R291NC2/Mxn/GSeAH15t/CITLALY/GJ3bJkXpMDw4UrXX6WAa5cMrIG/FfdOxD/X3HLaH9 l82Q+gckhyiucYutx8pZjQ/2BYzCz/v5QTZ6BXZ2/v M744dE1lQht7Y4DH8G+ZSa65CgsVn4Pv3M694ypisf4gRsPTx3IIuTavywaD3T9BD8/WTYa3OTHmKP/D 52o8x1VwVPh/BE02Qgrar8V2X/xd+Z9p+Z9J/4O/z+aYGbfC0M3laihei0zef6A57OcvRA+veZQ/nKcb Gx7dVj9bMdr2Kt7NO9V/YzmY9qTo95b2DN7BK5osLt p+Lcv/LIt/lsU/K5Q/IKXCuC4gyG+UQu9PP6MM1L1KXgcvC1VCwwTlLUeF8gaklqoFQ5uopqKnMpb/Lf gfYtW/xnVzT8Uqe6DgtFrE/nAh/sE5Ef/g3iL+GE8FNkwD8A/Og/iHeBpW/nB1xc+rK35eQ/XnOsGP7q MaZj/D7GeY/xj9s9v3hut+MBN4t0F1gsgTp/3guoh/ oDtMwd7Ymfm8PwN/xEcY8U/9BhfiH+Ankz5mOtc8b+S9E3jzWbZBs/18ul8nxtf+Xhb/IUyz8uK3RNlt xfUX/e1qwDzQnq+pv9P/AKdh+B/gbhj+B3i+9emC/8omjGq0z180zpckZe6x3B0r3Xk7Ac23KK220VjP ouzOod3kS/6nPsN+1mcxhifw5fE9aGs+wpf1r1T/Fabi YpLXLWSvsm1SX0KufSRy0eAjCuGkq+seF/5srsKd6Y4dNO/9pW/9oW/0y0q9dVnuzt5cWX7/CebFk6M/ 19M/7G83m3s1RCvsamg3uGnuD/MwpX/QR2q1qeqF2+J8v/7PI/UfHeLv+DfOP++R/mIffP/3x/t8Dfr/ d0PEBy8+Y5d/ngE6j0o/YTE3//2Q8Gge/kPirKj4p/ tKp3b/xy8Gi4C5hJ/qfOCf+D+4z4B/bB6A3El8ga8UEJTclePc6HyEPh/evTi6sl/cJxq7i0Kh5Vae59 Da8jvI/Ks8DFrmUWtz0Wg5OCr8vw92jl7ug6i9aM2Aco3I5pE0dwG/U49buLt+Exhadsyervm/V3XEv1 63D8V9VYi/Xeg/DGmZ5B5m/giau249U8V/AOYa2/Dt ZfxBU/l20c+J+Dv8t+YvgYokcVJ9ejKMr/Z/qx/M+x/M9h/bmWCm7BfA1szuu3hw21Y/j7NFz+h3gbPs K2/jotDSv/c+B/KGpV/f3A/go4nx712AO/EKt+iqfkc0fU6Myp3bP32/EhFOBL55myhi1wKDl07ZZ865 W202J5W1S7v2hd0A47taHP4z8oalW184Y571G981O0 70U2S68G9l4E6M4sPxQM4NGs+jeffry+jeffry+jeffry+jeffry+vth/b2uy/x25SkM00L8L0edwn7J5tJVqj/PTsNN 50KjHhzbB0TSj13/JdOn5yW5TK+oL3oTee7Iex7Pio5Sqs5Epr4Vmz3Sfz0Hp95YCflU+GcNcJSV0sP6 ZLftVUIUTyubifC2Us9eG3Ql6hSVrYFVLBqDF7hQad FtpRp6pZTMEx+kg7JnJT6malIojrW6NNq5lL+6aXYgF0gx7PaGMzMPimv07UYI31AZYekzQ1HH4kCiPG 5umWLyv2FXWi4eLxyJa9AJd7Hh9UT/CW35OycyK/BUlyjVGB+bpcJFkLGGkNagB3tJBhO/hwn5FBWWSn 4HPuu+0o8+QitFAbaZ0zxctmX3kWovIg4m0mwickUF jCh6ig/Tzb5ydB+Pnm3zyTUaSRIFW57L5uMpxy+7kHai2taYaVkrgDox9/rmP4jbodxphMCj4RRg7u9n /EyTtFNYZtinIAVzqP4yyEmCzpUkV2ctU2/W+O8rb0h8zsKVdChf5B9p+00ufm3ERIhoP6N4oV8MsRQd Ruy1NLT5cGaErEysZk2g/Ov12XVdBPhzjejuQKaGZw RzsDx5F/2TdNBverxbaPQR8OofRNjToTd/zmal/qzw6Xae6N4M0vZ2WCl5L1IcKuDrwYNVJRE4wUTAJ3 IWAhEvp9vcTMrIlKkHItJV+Cuk1XiLsc1mkRQLWvh/CFv+BqKHx5YxlpGEBrbBJWtGUTIIcDb1pL4ZHW MqXoWt11VEuZf+hvDeOLzC4d1i9uGBpdZHqA09wl9Q qX0TNUhm7FUl4BWqm2zB/Cvu4c0oSBPq+9HouPT5/KZyOPeeakzXLYXzsIhVdt2wu34WGHBlKBGYmwep hoTqG6Ade4kPY2VzG7IblU9uQwaJsBFrmPLjxiHwES2EMXvftA7SPmOTugL00m7Q07fmg9T1EIDdbqVM I90JYn+O0QXyB7kB2TEHTsRPPHCysPiPWs3SUPxXAI jS47f0+Y0prj4yRjgZm2/C21v5DNAsYrLjnaqJ3FoIq3uFlwBo+71yjCB+gqNe9ATClYCrGonD/tlZkk xLXqEoiqkjRiiNQHgyOqm2UxopguyGTTCwVTbnxvHyIUXVDpNStS+KxesR8J5W9l5WwJ1N4G5UDr8r7w 1n3d72B045Isz+pjXYrnDPp6LbsaMDj9mwwAAdGCp1 mBNOrYoQFGVbOUpz5rYxwIB2G17Hzp0hC+PilZjt27qPqlmgXtvRwdjtllIjIOn7LKuzLf9eAC1vscHD P7DiAcgMW4XWlZT2+VE7QXOl/JGrkTQ1sBA4jOh/A1NPEFYW6qPUukSMhhJc8ARVqDA1eYUJ+z7FuAG8 mAzQi6KVt3E+dQSbKCQffO0cUoGDw6f6yJIjOc2f2+ berZ9/p3mUO2OA/8bKC+Z8CiLky8PdA2aPPOjG/4BSHFX/gFQcZf+PDinH3ylsNx/lgA7A1YS9AX5Dxw H2CuC5C+Dz9McjqWI8eoZwMIpL3kLoW02AdtmiHckZZqtFvCS7eo8gQVF9leEaHS5oRZH/YjugWptOlp TgxEllCMPiSf6M8smshS+i7JS54F1GZ8JguQd8dNBU swVB0eFGH9JAMRoa4a8AEQAWis7fb+rUozD6F19SkkKpmp2wVj+qy+8rSq+I83iQUfKz45HEFjsSh6NW w/JFHL9rh1RVi6kPU7ltm3N5GZ9LuU1PJzgCaoeazcg0M51A/6GVh23x8q7W88NCgWXkaQ3kicgguni+ g5R8zLlTINe6WU9s41Cl5vUCiOxQzVz6kSQpgzh+rZ sANLopQKObBDSoQb+mR0N8cGy21u0+6x6/dcZvJOEknVj+rXv+rXv+LGa9WkMGeN9F5Qrbj5HNITXKWR fgaUbsIfO1Eu4pM0B4jw2VvmeZlxKf62RtyvWyZ1Uhsev7FPxsw3NgH6F30IXkie1H8B0dir2ErolqRk XN9ebKgFsai8Ggyjy8cIIjkFBtZP5lq+7dN5lEC1D2 M+FMDVgCI5nhi9tdsjT6Z1vEH407J272U460C40347/v43sHgwMTY1UbmEt3MkoqwyLQSIgnCAGMWyF4 4W7hrHvHD0vWFiVpY7C+uHZ8PIkzmNtUFCP37vJLnqQM3ltXhYM1MG/UtV+BLqzjjrRrgXlVh2rgMhnN dXsjgbwL/02zaQFStw6AG95G8m7OskMTeISo76cLjc 2WeeZ8u8aHMWmRdLMLURyTnhjG6Bq9JIGWcyomIBwkOeP95uAvd0tlnx0kqWg2dh3uYQqopCX5upiJ1v zaOUWr78RIVvRmo0w2HFM/Hg4SYLMEpTsRAUdm6wTU/nEvcWLq7jV4Yet722hJ3/xl1nEmcvUt84VoBj 5EKPWB9DuteTYLrIo+9pa8b+QgYk121o/t4KDxsNbD rzanPhxdQPeb8V+K+I3dDjx+Gx6/QRR/0t9qm7mIsg1QbinXDZh/VEcSD8pyQUEWCrR1eczLa0FccPJP 9frCmLZegEb+uDIpoVoLt5hATR1BjDdcrMYbQ9ytBqWrsA/eLAFq+IqRjwDWXgS6YCTIW0zQQ5mMPh2V 9BvC2OpYsOKVlALqe44fIN0WHc6d+NoK8wNbbXy9MK D/KVrJVawVh06F01qVL1Oq6lKGOgoOyl9ROQHL8U9RmwOu9K2z3pYe6JPXlLx5QNWD/2rN5YeMJiI9Xb z/Bm9ZYeJKAFKxU9/M7U2gfvier64XwkW5yNxHP7xT7X0y9+HaMC00U13GINHAfTMq1UZtKbaVaW+QWP 0MTvsqGEP7k5XaKt+kFdhcv2ZbBwCKLn5Uuy2vAkli XYuPLRlwffXMn7aTz1rDy51Vevr/HwfxG//UnE2dvtceaxa/Cdt773l+Mh9SsTZusDMEtI9GLwc+bXr+ bTL/RtKcdCfDfqemBInprWDmcntbbm/p9iqC1fkX9qzK7fsN7yuH7szA92xrcg+d4moWpJmm4NaFhcCD gAIJEGnv75W0QbG4j/CVtYxsJxa/uUA/XKEfLtEPav QvMf/xNe38Pk1FmaH2plohgqE/ejyz4rtJAvmV589p/i8wkhyE2vWMx2O8WfoxWz8KRBa0G6Tbc4Fh/7 8BvLP15eX18AJxPzLYxI5MlpvtZ/A4kvS9EpvkkldB58++Q58FGWiAJW6+nbNzS9F3Qeo4+Tw8zI01/J Marcial/Nvy/3bcv+1jWA3KWiLkV6onPH9jeCB/Y+YPmR5 S6vl+hCK+i+KXdUEffNokrfCxVmxvVR4kwD6HykvzYq/TNYZow6u9vO9nrLT6S1PtpGjK7uDsR/cU//s 7UML+gl9542R33ciwRpm5xno0OgHOXvK/7E1Cn1Ri0sFDyLj0fp4ecE+86ch2FyDMEuKlyx/s8g77PTu 9+xm7famH4C984832mg+47znFUT/7CwKKX7gviMuJp D3h0BD7TVo/5MdHFyb84wrq+/VxyZjuw4Bh9TTilRD6EB6aJwLZubDPzJVqU1i1uiMxK8Zzc8UJrNzgL PazBbYDfCIrRewH+CRWi/f27F87RGmTUINS6l+qS3cOFdqPzCy+yNW3etXayzX7aoNR0K6VpfOLjo5Dw P5CB2ImC+JUuGuZM6LjLN6tKfI9FQVL4pqo8q/2yD2 PW8ym5yfH7tKt4IV50VtAo0Obfu2biAXli34vVM1/h1eefHMxzLqydIPgA75g+20f97bv6Zg31bUmuZ+ WfWsz1BvgBu9vWnhT/Tj9KR0V3lNa3wna+3x2/d3pFu6ol8LDmmcuvVm77xo90rg86ac93bm1OcRDhw4 z1KU2nWL0oi8XoR6XLb/tw9hdd0sMsUi5OZpovDxPv YhnIQl29gC5yqtnatGOoSdWV0xa8qvP81LIS4t9ruLit8ysEE+kPYqRR79tU8dVGVMHHOxYs69qYuheY oa2ZuTHB6yJF0UEl8HOfVqG3vv6J9t4YZa3OSgYUdE9m9+4KFS8zzN74HKmmultcOkwpB0W6SyS+7Zph HlEQjy38Unne7E9P6N09j42jb77Cg47Pi96Cf68O7R 4AkkIg/lGfU0OU4doG5JkNVDZnT3eZR720OnTZYQSLthB94eDnBDocZ8l+O8VE7ZQPrwWR/CPQmXdMUh 9JEktGACiZIy0lwM3IfCFNb4tQk/dry+nK5OqBc5yyFb5ifE24n+TaC0g9XdAHfHNSmHytdXj50sYiHF BP05yRIADFcCBC7Brq9Ez6t2zaF2sIamtBpFH4/Y85 YtCglk54vu71hna9+lm9VMIJKgmmYgFhg9Qqv8AA2j/Jd9W4wk6C19k/ypit2s6p63/54yXRKhb0Gksc l26AUwiGbhBpSDI4gVW6v8HDaGw4bbSUlnp3G8jyw/kGXKGCD/HUjjVfwY1uKoD/cvfEjUiyk/tpk8uX 4FHPVpt4RuUP+m22WJtXWOVRL/O51+3ggN8lvVPThP 1TZgDV3w6kvx25Xwk8ipZ2P9EjkVxrDDg0zTqBdat+w9wGbz1FEbm4ujy9uv7EcdbFPI5a14jamUJDyG 1UcAwhTUyTJ6nDH5rv1tZYsjkv73MJtYw4/W1YPNUW+i+gIGyL/kpGGw9fLWOxDx4zdYIeAGZYGQwMK4 25IW+xceae+voEVfk01WT8NK1aj1SJY+8ifVcH5/Vj /Nj+lDMED+NozF/bYX4juPJmL0JoVPVtmQN8BOFaxWHlvZPQ1eWEkFM8LGuKu5NsN6H/CfYPre/NimLA xMsgrjiPnlUL4JCm6pPawahm7PlhJ+wFinq5qdsle83senMvbYJbfotm5hNG2hN1gnY2jM4mzxhVz3rf G1hZpUC6T00ijs854g2GLZ6mHyKvTOflJ4wlCeEVxk 35tsGn+F0b9WjtRFpVcN2vR3w7+ifG9y/6Ap0ipUr7cxOY0hr+E1YCxbFoz+h7QgwQgGp2XY/UNz9JjL 7MIwcY5qte4vj/Cale6Bd9ghUXfqFaOYK5Wm+cBA74et4Kq1c7qmHcLWWSN4hhSKE83N08dIXN30Radl kty/LGMiDPOsiJmE0XMsGS8KHV6WmrXWsYy/gWQ52X uxsvc8Qqr/Q3JHaJ6zcFK5EJT/obVf6zcllZ2br/RpPo2aorQhVkPNdNH4DFdlI2L8OptGcVY4PQW/Qp AsJ/hjifY1XjXdfyeVGSvl/sIO7QrvF5YLiJwDpNzJ+nt0jpp4ArGuHx/fq9XKcz8/Or0oju4/IX3/Qq b7N+1c7EsQVOpuTE+ZqdaSYKaw1j6x5b0l/aX0bRo8 A2Z6/OVfx5Li/AIDOsYmhdhxeD0stchKGkb5S4wrzD8O6P/Wb8bZHKK8Gq6HNoBbe9mP1n6rBQ4ZH8x/ 6Mah1WxXEGmg91zvT5T/Q8YZw+O/MfkB+syRSm472Udimk/A7wfKiY7Qh/3cfPqsyO8/Zyv/BlEKpsaz 8drjpdZsU3iHm4xcil6HfYY9D/fxqIk8zfw/ez3Ucg FT42/Gi4VT5PhZu2CL2OAbYbigzf0+GHwuigjk505rgnbOil6ysziN4ChF09QQlQN0jRvq5rKNZ+NFbL 2A/IwFvNbAU8XVK07q0LWe8lvKxxR6BTYX33UjETuZkN/L5NtA9SX5L5pBnN8sJg7029QJeoZ8mq2d7N +BqR96Sqpc5cChASAwHEI2/EKR1C4KFL3z65ed/Vt6 k/tspu/NZvXTZJ/8uozNAwbl2f49s/ewfspXWjPSnWj/QnL/fnCUzjTl4Qb/RijOz4Bw/VnZLP+W3vY+ th29Yux/KSN2JTrS35eBi5t+D8/E7tmIsAQdz4ZXvGJG/TSb5d+ymT4km+lDspk+LUfcC7G03Z1NIyOM xSo7MYaLM5ZFWqRi3ICzyB3rz/ZMrOCCKlCFv4yh6m w6sQcwM6nhSGYNanY9Db1jRGwwQ6AiuTk0/oX0/QvZrDlR+k2Q9J8Q9ck/AUCv4ZU0RumuDI2NA8M2B7 LRTB+UpqTx3Uhagu70Cko6Yjmruw9+a7I7mJ5n+pBspg/ZWtvXzUGUxFx3yHnkD6vy06Bd+0+zmT4km+ lDspk+JLl/6YP6dId2rqs+02y2/zSb7T/NZvuzstn+ 0+y2/zS7r0+7r0+7x2/r06km3uxGxb9M3V2zDuR164sOWS0/YzjvC7F0/mENikF1dFB/AufoWP+Q7NY/ JLl/BSA99f7svGO+hftKLntF/UOyW/+C3DYEGo9taNC5OGt1XlOXSx5foEZs8N63qs0Zdh9v6C4ZPIcw n2a3+onrTjh5FE80b4gmhYSe/ftKOrHnabf+Iem99r Nb/fXAavk72FzC/Qt8omP/ZoDN9F97MT4C2KufHb7+vexic8rnGxAgOkwAx6G6P9Ugkj4RsOw/YyTsX2 B6E/cMbGhJ6Mv5VzjTI/x2DzP/ey9Y4KgPcbVQsJUi/DfyniA/e/oSrJsLwgQrgkHJWY0vAL9oJR33Au hF+TfmvLF/AfPbMCp+NX4l5d+pERgiM9Suj9/xE7h/ 95IesWb4u5oJI3UQ4XmP02oBcG+O+hCSsFuF+O9PrcuVgeLS26rpRX9jFhR1zJTnUWB/4ZFwohbHGBUv 7u0GvW5nyZZ69oNDgeJdan4TD6nanKo0QBw9oGz0JiftkuQyNZrAo8d9fqgHtq+mGP8Nt4R8flawIqwQ m3RgwXNK/LrTnHGvOzjAeS4lcF51aqwDZMI7OTRrK+ BSBPsXaG/o4f+IrRfQxZ/GByvFLYwTy6T4CB+Ww/OhOwwGcU1gAGvPjfitzR48tb1Wf3osiFb+bXj+bf sLgJs9dYSg/uld/XPY/qxkX/1VdjQimSC1xGre0Gam0o/fY/letve/ZDpZTrT/VFcsn3J06VkpkJM3i8 Fi9w8gIGXu8/9eKmwIjg10D4F+WHaeg0gEx8+8338O 92/VWt1j7LiENL6wClW87sK6tDd4Zmb+Gx6/DY/vara1u6t+B8gli5HXaowS7DxD+xdAuH/waaUudO0Y 0/ld7c5jSh8U2boPAN6ezv6DXGhGNSyP/3zc3F+WyttozuhY73+/NzMiCyJfjyR9BO6j2rPlCB5Nrlh2 8PzhDbx++OD4rxF+PWzJM38+7+Kfy/xgb4EXIe28xi 5tGlfd921qayrmP1h71xrKwU26yw/G3+cPQ//036Vls9ZruT/4A/x8nD3yqiJoqcD4K6154sle/TW7h/ sPc+P21+i+GBulp+Fl+Pu2h4/yc646FQzT5OxX6hB+cv9pa4p8AW1/De1+zp9fu/+Wn1u7+LuFMn80wh /9fWdqt0m6hS7hA0Nn9zmOSsuh1fAhOinkHb/Fz5l9 F9s9772ty9aBynxD+5XfDVCdVn6y4c+MdL1mZLX/xxwt5SEPh80+X85/HGA2nrXvpH2uoRpTZxqC1u/v bpC8cyt5MaiRvZ7/93U/9Xl+/rx1g3K2V/y1n+/x1A//7g/L389niNlP4R5i1xtcfr81qr96V3lhm7at Z8N+gMt+KCJbhst+cdgkqBdt1Ws2RUxiuz/bda58E0 rwe6xpDqxY/PSfn7q/kZ+zNj7iDTHn/8JW9xN6vCce/p60FRC3oLAURLzUd61WSkra51KkhtH0r7O/l/ 8h7obL/xCX/wmWeuzvP/3ib1mJ4U/y1hTee+F/iJvh8j/YEIVUtxzvg4A+B+97tc3LivwUa8wu/fmfh0 jPX02Ma/+5/5af/6FvrALAxT//Qn7D3d13/M//PNx0 T37+5+Tfcxzu4x//3HvSt+Gj+sNUjfpvA83z/8Nl77g2M42EYyq3g07My/AR/xhfs9DdSt4YrCvzKQvn Xv3+XhL+h/i831rC/nPQ4DnS6ryqIx5/YCid9Oi+xgqHzb1CR23y+B/iNFz+c3xzHr0PNPvZ10Kgk4M/ xGU/+B7O7V2b6Q+MJSq69UpS/gfHw/7WA9BzW8DAo/ h5LAh4r+w6Drfktny1X5ZAz6/vhst+nVcN38mtgFUux6PlA7qshMVdU8VAM+Xt39+y0OJE3yO9+/velP 6Rcx8d4D/l6x/rjvrOxeeL9w8ca2kK/qc+D/xP4O/lf+r33uB/GnD5H+Pte4zTTmfBt0/Lfgb+XvZTsU GD/yEu+6lFdoP/AU09IsGspLyqlq1d/A9x+R++t/xP +bcG/4PPD/9T/qrB/+StMZV245zI7/swzH4s/dxhSrC67Kz41BpKvDw9r20/h/2uDdMiX2JknWsC0PY7 CWp91NmAAZ6YBMpV/PN9a79n5P/iCAh5P9sKf/3g3w7/Q1z+ZwLL/1TW/X5fP/0ZESaExF3sMdaHmT7A 5jjmZz+D5/vTx2I5N/+DuNNR0i/JUlXy1768OvWi3P v4n/mR8P8bQ5l6/M+C/Zf/Wqw6gq9DvI37xMJbvZR2WVJy4+nwPxxZW/8Bd9rSRQ8dy1t++kf20+F/Ks 7s8D/BFU17Dpu9U5CYX3VSc6OpDO/E0/EpuWo5y//Dpt9uQ2GfxLoh0eAeyj559Dwvw0i9h29+p5v/6b b+6rb+6lx/IgzR7rFp4szu9J8e1LA7/E/g+CMM/0Mc 71nW4X/49/I/ut58j0VPN5BHk9rWP16trz3/EmbU4D29/Z6s3fd0z3yq0HJ7j5t1I7PGoCh/uOLnBpzP T4ktfE35UtUJK/i2qPiSgko+4ueGYyp+Jj7Cq+TvBQiCdz9fAQ4/82qGu+GxhRU/O997ojvaF6r33B3+ 6Rb/dPM/3eKfbvFPx/dGfWhj5ZgyGex2tqfuW55d/U Tuoi7xlbF/dIt/usU/nfEPznMeHox/gMNwHuFmWPHzYPwDvAwr/hkW/niHI0Xjh4+GxT/D4p8B/8P3ji 6s+GdY/DMY/+CYIwz/ZjkY786ZF1YtV/v5Go2ilQ7wa4ZmAN1rwI4l4WX/k0Zl7h2z3sQVbSrmzb7P2g 8G/A+Rae3nAy8wPplFDiDjdnzd+ci7Gt3nK3t/DMv/ DMv/jGH2Y+uvYeuvYeuvMcx+htnPMPuB/8G/C/4H9wH+M8QehO6A/A7MIe0MwrgC/1U2yu2IvtO/VIw3 4H/m/McxtRfD/1SsOOB/iMt+No4p+nd5e4rLtb/CagcAafqHUs7E/nDA/+Azw/+Qc0fA5t6lw61HqpYT T1kPN21xg/8M+A79mh95p2eUN/ifigcG/E/FDAP+hz gNl/4Nl4PvO0XMfPuSh66Ee5wq/B3gHO4u3Fs8t/PFhBP+Z+LvZT/E5+PYInnAnsp8N6R/KVuayP/U91 SLpr7OSI0oZI21t9kMvB/76QvH/OxnNIyv/dnPaDVStvI/eq6UvvxabS21YoX/uzzuwl90QKD/OKb2i+ ucFf/sjvf+4p+Rt6dKV0gV//wPYshqpfPwL/5BPFmN dBhPTvgfvBf+B8fD/xCX/XQcU/Af7PibfH+sjF16F7Z/xncB/3FhkmdGXyx3U2JGL/X3AYTOAWgJ9c1+ Bxj+h7jsp+x8wv/g+4X/Li6nUfnP/5mW/5mW/5lYf+F+Tj2/IrOq5zAd5d/S8tfpQl4NOR9SWLL/iNeL Dyf8D/OWmc3oPljs0M/O7417G+PyuViU9XSv/od4H5 1T/mfC/xCnYeUPJ/1P/Tr8TNZaqZHyo/wh8BFG/ge/NeR/vIK20Lk3Z/0k0EJzH3Crtr/41N25xMdGvj uRvT8miH867Zdy+YX8c/mEhfwzcTes/PNC/vmDv+8QPsKW/1lQttWyw6RvwHEoZgTIWyjq3vk1sVD/WZ b/WYx/0j3UyrEi/7Ms/7Ns/bVs/bW4/sJ7t+EjjPiH z7pEs6zY7Ujy2l/HPB4HcA3TE0DkciVvPczzDSc+jbtEo71XjLxGGf+z6H/qs5n/WfA/xPI/i/6nzmP+ I2y7p3b8l0V/EE/dH9a/mBuvCu8mvbnJ/+AY+B/yFDq1A1l/fyiX9eGnt2PL0K2q2jL6fi1V7/e1wnC+ dfpaZj/L7GeZ/TD/aAFL1aJsP6LB8UBhack/uBj/AC t+Xhb/LMY/+QuvgPzOAx04lu/gtw//C4f6lXlmO2vGJW/vwan4D8rD/W5WLb3dkQl8rIX/YFwp/E/FnB v+Z+NxkLZ6UP2p4yhkYpeM+Z/pwOv7j9zU9k/1t3WfoAOtgwaeuioyOtgd6quL86sVW/wP8RGG/yEOw2 U/dS6fF2j6OjrUu1876U+WoyX7R1Qwwx5/thn/4O+K fzb8D/EyXPZDjPinztMVP2/3i9r7XifL0kDDN1XpM/8TH4yd/waUlu4X5dlOritmrXsAd/f+7KeXrVbb mW/IWX+v/E/taujuz0yBju1dV+V/UHuUj6i+CWisi1jV1X//uqxv6v14nNEH/xI1bE8jsQ98/A/+vZZ/ 3vA/+OerNoC6Md4GqF/dqS2ISp+zzf9s+B/i9nKJG/ 6HeGzhaVj+Zy89v/bS82vD/aRzv2sL/4Qqd6Ozg1qez7oec9wes/bW+n0frd/3Uf5ws/5M3M6UgVB/iJ U/9VmzDs1Rl6M/IT4Pn4/qF4fxz/kZWvKXZ2Vk3OtwceayBue/H/if+pwH/ua7ZPgd0mhiOf4bIWEiwI n9hRo6Yv85Bx/r74VT+sPI9LzxMp8SRq7LoFkk+Lnj +IqfO/7n9DOrtkg7m/wPMOpfeC/bKaeh6y/4DKh/4X4i/0Os+vtB/gf/Mikki/gI9wV/00RC969XVZ+ilw Tjih8YK9nsT1xEQXx6/vzurvB/lnYuV/juV/juV/juV/hannah/jq2/pgK0sXH/wfmR/yHW+utg/DG4oidK 46oLc2X/0+jooh8u7WhLda5Y15/LPf1hR03fow5xmW Ss9dfh+og8MZI8THiFCF614+xnm/1g/ZQ1VOc7qNh1dAd/1DEW/tw6E6cff/aLRuwGI7bijIiZ6X7J/A ++g7S2UegXloTEHbYbiymbL6QAS3EmJpZJWJr2IEkiweZGYfeq8w7SsPQg6usCS8FRc8Pc4zOpGD4ufd Yh0YW7rAwREPpZN7b4zDyJ8o7jp4fuyCrxqf+8iDG1 b9V7EDDbkYQQ8ghrVKNGmWT5LxhIzp+gDdSEKyD53FZX0AXncXrw+GF6PuhARqwRmPnofuuriGfFhq5Y FruqjzAi4Bu5CMmSXmSBdQlSIMxnvos7B2j5BdhnlD5bndki3aSvGVR3cJyyNFJwqKVYukSl3k2YI9Wy FJ8gbcItmVqmXjk43E4WQ+b93tNo607id3hYBHd21k bpgjVuZMZgMD5zdwySF4pGQxLI09doDds0Zonnu3rYA4c6BecGen1HRqMoW/MzW0LsneTdhTFAE9GFqy tsBeUYU/iH1em3g1zuL9WRTNnZaKfkwNqiorEerJ2kln6ErWAR3ArUxaaYkzU+TVPHN1w/0ATpq35wp3 7qjmgKIDngpeecMyvBHPsOGkHJiSkXZKdYL7ODG3rR xfmKQbC8ZuVH8OKvMkUVBsfa2ESbO9rd3jVHyhOoVijRVoZgG7iuQKL+IAEsIQNOt9skajECYaehTtgf sslUvgG95oRHlZMv4y9+vvrMhoT1EoVLxotWN8EiBF/WAgWXMA8ChHIOO7v5C29OMG/ii1SBZ7wJ74LW nNHYUtDA9uLIFkRsgknxnX7Dknqm+fGgQPuSPYwcI4 iVPxclwGd8G98EIv3PT/u+qmJ2Ae4wQ5FXJugLnqTunS4XSCoNLRyGIVAehmca6fyontoozX0gjYDDTX mNMOlA/NFu/xFvX/U2yXYi/CUJ5BjiMldboUDgN6FWzOpIKOhGG0D1NUIbDR7J2JnUV4qBCXb5jV3EaQ nKuS+E1Y6lPwQuxSeeYlK/1XEw3xIVTMGg/i2R1+Jn E8Qbfyqv4X1Pc8wEP0CNAIfFGvA1LmzWuedKiGY3HmdCqbtJsW0w8zgB5GPntXdiT0rYb4Nfu1HhjU61 QjWruHo07kTnQ3BLueOlIRchSv/9K3NDaN+7GDsLiJsXKo37DYc/HOYSzN9m2lI1Kl4b5gfUzE5/Hvi3 q4EH3ldxthmzStE/B9HTM77MBDWxQXTLPKfeuIHIJH Y++Ba0EpG9MjvxwQ9SEMuyZhrGaUpY1rFSnXWJwTL5ZQAkHQbCBQUC6MOxa7fBi6FqH4aaVqg1J16QRD pzNvitWS8l+Nkbw+PSh9/9AIXWRkN5EJWsvyZFbHlNf7j4UZwVSbHOOyL3wI1n7QOSgVjDuj0z2fT4Cg ZsNmq7N/sHLLHaFWbcLLUpuWYDLvLkje7QoVl/8KlD +utbZKfTXKnZfistwt9LL9HrlR6w6r9+Zojde3F6Sdk3hD1/8Vsm6bIP6Ir1/ju3p3qEXvDA/Vvz+K15 /TWPKFQeoo99vdTXrZfF82+Ukl+zLJa4R4OR6uAFy1AF7YHzNnxsrB4/UVJ+QBDWtifPdnBLGpJbKf4H +BsOjtr4qVSquh0Sq9jGuawU9pd6L/zbJRW/XXKMIH 7jCRC/6RktTuWvnxluL60+wbQOJBSCFfH6A9Xx1rvEcBPS3ekV5u0WAI8DzuNYiz7gFoUWu5kfK4Xocn bsKrlByCb0K5H3f3ZLXmo2ZrhenKWeoqKmWLfNNUXKHDoZoVx4d+3u+bdum/AwplZkOZEOAmNqHwkp+T WwExJ7XGjeTwuGGA7iiOjHFFt5EXS5jOrdAAjkI8ms NtjFeoI5o/cQXT1wNu43v6HG5/qBqzhZFD0sfv8mwl9kpx8lzhaoBfm2hFyd1yN33eaX0c2rr3+jUJ0n cP/MYFoSKgIb01pkN7jwDh2G6aQyPVUC0WGaaX12XmAx4Dq49vpgog+6UADhSLcdA8UzI5OxExZLIb3s TO3b/Ua408pz6EC87uuuzyCHXQDyEXSKWbyAqLXPoz Jjat8/18pisGOqp7k5mOXEYT2rp7DxNVy9JwIF/zZIzL91+De4zg7/cywUTMoq3v2k/4ZYucO/IYru8G +RFMbKbFOTD1kbViLdM8wXOoe53LeeiBimO927UKKJIfuxTQRAMmciQty27SUfhjZwSfLijgM0K+rcBw 25D6LMKScnBt2WeX+J4Mnh0j3iIr0LKPT6qFWbf9q9 N85Axv7QefxaM65Rc2LhpIMvQW5Oa03FGiEM8/oEJyVmw05C4F9MaAJ/m4CyuYDvzId/e6HfhyeUrB2Z 23vlZ2+La2dan3vS9dnjD05CGztqgfNdrw63DdbtXEAJLh/4Tyj/tho+Yzt768mOo+5BWujy7qV3R28t QIOE47V+hGpjwWE00DUZrcAv+Eof5dHvFocM1G1dqG Qio9JR0fc0F7X5tYZ/KcOlhG4hcs0f7VXLjn6fSJTp3pv2Q+frpjaU8Ks4tB4SeGh+wrlRY4k1NBtLi7 32C5jPHll6PG1CFMDA4jdCG/ucSiZ1lSaHZUXCcVminR1c/tovuphaoWDh8M/UoRpJiDBf09VYG6D7Q3 k4MKb2/lFl8fwB2d67TT6jHcoUmeZlus9Xc8m1M4cG dWZ0RrPjem7xNCV038tzUfSOmIDeZHoVuqzY5ksiL3TxNODvJrFziJSIH8ksC8csc41N67yVi0Rgr+nx 2/C3ztq5eMb1eWk0Yg3+m74+pwY5S7iaD4nYTfxTpH/s7HekqsnDqK2eal3/EQfjF4F2XfIQ3GSY4ffX 7i+qyP8U9vEy3p2AqroItjhMpSS5UGF6H7I9YV5+no dZvndOy/fEmxoVjDg9FXi0ipTMrR+7xOoLFOIjXKES/04t5klyd2Q6FolTWG6vny6CGduf31BEq2jYwO YkaM4mf97eyblmJ9pqJ7waK8rcK4loD7bai6octMJp6FC68unicCQoxuXGscyDeIHMUBSEPa7Pbo8x05 IS4wzQ8vN5i1zaHDu+qGECyC2Gh+NQLAz1WJnK/u0S uYqbJruZAUIQnqk31+O0vcNxj+qpFcZ9lH4/h4EAS2l7mvdfMTsuty+J89PEqTk0Z9v4zkNL2vI+q9nz dLF9A+5b0/7sKKhMEanv5xlgh+4WdBdUZ4k0FX5Dq3YRb9ZJxK+u5I/l/j15l7fi70u4u+GleYy8b4sm 0IqK/ysWBuBw9m+cR1Zntct+Pl2+Af7u31ei2piw2y JaORye40EN/d/Lh4fPIqwCxx/KO0rgz+OHQED4hSR31X/qEO5G0PkhKipCse4G/fNC5czGC6zOSMke8J +fBp2MpRo+95WDas2whf6v/QIVVbbyWB3Fp9kq+z57Qo6Jbr2bp27Iy4qk7mEAwz/lzU13wqbaeMuqh1 wBThWyx2a557Z/tty/Le9+uAq9vfy/VXADwCXhxPIh 2/0rQiBY78NMlMWKxL25mqYR8gioaa/lQfZN6jOCDxbglQMre/YVamvc1sj3FESimvBPbJ88E4uEsLL3 C2ld4Zy0Z7kKxyA2MtYS2ty9mPbS+6b4z42BLHP7QcAIBgtUU5DJURWSC9w76L6TNSj00+7hRBvdMKZW hKEp5EsclAj33LfOrnPim3AW6lmnfoS631K6ud1TLZ di+x822Q2C9Cc7vMtiAyBannHKiO/bnn/q9v5hwjENpi01v8JdCL1jIwT3RwyrkO3ZBZSiOs1qaq4Dni 4MIoclbTMvFupWkpObv1rhyv1+nk1Hq6c9xz/9/P409HP/el1EB9dh6uKl/dvelg/TF9vpLFGJVO0FF0 /N+imJPU/2fK6zmviNjhAI2/Ox5+m2hXH0ti0K0gba TO29B+ejXXIYUyuifXIYU/vJcJlydfJMvGALp25dkL5j/dtx/yhU1lIuZIavV5UP7L4bUXY2T5j4avT5 5rEFfSiUimcg6fim4nmexat8vxI0690g/mdLkBAjtdn0ZDGdtj+PMe3Gnww+Q88UCt1+7U2PqK4S6VNX 9SHH9W/cjACnelz/dlz/dty/wLOJOR53UUsJodXd+L pOpu7ijU/wb5csJ+Yr0ojMlFWT83aJ/dtx/3tz79f49FteOiYtsEs5nNhPU4xBkyzBohJ+Av+GWOzAvy HrAWe8qNni+S9Gq66gNDtnu6rGlm50QUMoe0lbf1Z9T0aFbzfIkiSmmJdozwBN/r2Q0icElCr7520eI4 l2th7b2z+vSnQmMrr6lFwXUhDtC5VCQReBSRZMpCh1 cnUL5fIiS5PP8znn/2dexslnZVfhU1sqGG762pQEETIofZuuDevysbwactQIwqsUF/QhgyRTJyj/nisreen sLt0LooHpa4sr51bx5nE4nLJZZwfxjd/oyhqndHb1w8yFqp8e8lKN7Kmk4X9Jc7ad5PUEgwslrNZsZ3e zkOS8eeSuuA74rKz2l8nja2BSez/tjVXjw3k1jdDiq sX+NUmt0kh/iHmGXeco4nn/JW4Yj739nlZ/NnAzGM7xPnyG3UdrRIEm+79fu7cu8WR2pQ87bo1uvR5Og x1uCP2Afi/YUytiNoXJPcvXLKcKP+ITpJsyfGXQ5PnSQAlgAhbSn9CNEUPLDxw3v2aUJR4ITIhY6QqLH hT+95j/IRqsjZ5bqtHaWJ8AprMJSC2NOfm/Fj+DWNq 12TAx1wHoU/h578WA39c5yIEGQ+i684RjM/5sfgtw+Q5FIH5Jfl+X6I2pHWOd0Zm/lK0jqSF+dtJ6DhW +kgoiyNhmdX7Kw6P4dFS2gc6/Qt59y/e7XzA7ruZ3lBlh8qfWVi9soQuX4kZlgGml+4iek5TmUhupn6z recsGK4B1gmVh87kTS1JoMrjndD0SudA5qmW/QskXf mQZB/8S0PyV501c4i3Ldj+cbuLa24gY93IUxD2u7OP5HKJu+1tuL1Z/b8C5c3W1dR3fS7uRS7UzVe5Ye xtkcvW7At4pFrc9/CfuvBmslM5Q8r6z7szj87hCXr9bjM211rWS97jZlSTcR8vbj6F/JGV7prQQ2r9Ac C/yGN97D1pixW5m2Y/bwGi0iePiOqgwGhqUGYtaJK0 2WGVD+TgqM2uNr7rssN0GxCCXUsuE+3LK4jFSPWp0w/aGHarjB7m+af//N2/CIXL7qV3FFD/wiTR/qxM 68Ka3L/QSKDvHSDHCPzbJeEknWA/OVi2ZyG3fai7WDfsNXonhRzn3P+XhJNcRpqT/yh6Kfov7D+d08my o4O9nXZ+Xa9M6o2et5S/ocsER4LsM+VwDjG2iYrb5K KLWtCm8LljmLyaZ0wlW6aRqO45DYQRyxTO+ow1lgo1BHb8u+Avezsx1raoi8GAv+ReHf1AlD47+72k2v 3Sdip+Cjfl0P98es4/imG2n0zl2dhrguMfj36c3uM1cAmLOy9m9Hp/nkV6En3T+RoHA8al6z6WayE9bL 48uX/hkmME/d1YnU8upVAyEbkx89V3hCNsX3/k/oX7 nmW/U9u/jXiUhBO1Le5HDZNLeo0j7f/y29o3Zdhyhw6vdwJ/mtqn1U+Njt75goP+jQChjKT7mvB0kXji 66+5f+WF7ULEY5T3QsoN5uJe9g/PiJf4UiZ6oj/GqTOxtQQTKolRNaJrBpNAiPJchDM45OoNgXFXReqv y5uXHgPhZMgTezyQyo94gHw+P5epo4ZLsrg9m+ES6X vTG9+ra95Vk00lep3rah8Y+t6H9M8L6zmKvyi63seJrmj76oa+ax6/NdO/ZzJ4lThgL0rt/4KNqRXpTp IbcQlbIM1SxrjtZVtgHi+fNl+fNqufYkytSHcyP/aeZfcN/g2/qOaWBlN5P5O4/zSh3s4L/5bN9G/ZTP +MlbY01Mbjn070aJUgDoWY8K+mOt3a1r+a+7fm/q25 m7zLRT7v2RwwOhb853/N/Vvbbm/g24sSRqMsCaqh1QNL7B8grW8FWRat9/nYfTtht+u5nI54l+P2djR7 ZbNmSMzkeor8fyoGKOJ/JJyoBV+yh/9z6DciY8v8+rg77KN/X9C0ZpcsZ09mxJcxM/00u/p69gZGuF+B I2/LL8KxvFN6of7B7iyeX5OszSwh7clfFr2Kt6i6B3 AgtjKuAEeMsrFiYiBskutkXUG8DUxrej430/0H7XWDtqe/iRP0PRlsuLdFytdcla0QC6W9N8k6z3k1/9 Y9/1e2XyDe2x5kug6x6e5/LMomD9Ti+ock9y+VUI33UYYRZgLdJQ0xv/4h2a1/RDkzN9Wd+odkt/4h2T 1+69Y/JLl/gddh/EbSnZh/8/15IJEKWmDOIofSuXv2 4G+8DvQh/IIr//zXf10o5qVsr89kDjlmv0WVZ91P3fXc6ptomtUL6B5hQ+F7Sh/Ru3O0y1JkBy4Eimfm b5u/JWv0K2wBGlN3mXn/z+u1Iv60sQEb5T9XMzgaT9ZcSfj1rsY/GEYlXOHsuUa9S2q3o+7+bbh/G74+ 5e2NT7tCu78Hw6INi08/xfpvnzzlx0RcwdJ7wks9Fa iimdTbr1LOBvOqp6mIWuB3Xn0CA/eFn5wzqc/JYfreZNv+WulmE7xewgK7JVrVC8SwTT59LUe1IxWLEU clEBlzZFqC35qibB5bWgxNOv3x4bZc51+LdunJMaZWRPoQjKm9/amzphw6lhQdvuUTWcis/fUYUysSei 5D7H1dQp4KO1yrq6Q11LWfNMmF82XaEYl/nT7rl4mA 9p8mm/vz7qC+xDs2V1aje2+CNXhLdvi/xO1tSY+UbPJ/ofwNRZn897cxulqXy/SW7PR/X9H+cBW9DapA +35Z2/Ihg+NGSNQ/LABtSPd9Scv/ZK7rBJlHyo7v8ZfU5NpJ4PqO8MZxgwgxcn/WMAGayhAo8d3gSbzK 0gm8abjngD0+nb4+nb4+nb4+John Paul/h5c6f4v9/zSn7T /JztfNLuh5S5ZuIsA4q//7Z0zt7+d2x9QW/g9jah/uhr92+Uo7KM8R5o5BORQ4xagB0B/l3eN/Hu/nJw p/PbMavIf9W31h/cNxudG4gzqxLjy4q3nr+P23qKckZ1uCsK76CfuI2/XD2V5Nu6H7VCemy19o2Qr0Oe 5a3MNH+IzxEl4NvtpxgM2on+FeGH//mtrD0/DX0N7x e+k8R/jn1R6O/Y7/+vS2ob0Za8abhw46enEbhL9ygTy0Pmt086y+6l8Av43gY0Cw/TD/RcoiY3gIpwhR F/p88Foooi/7D2+Mo/3az/rdWhfd331fj/UmmbJosvUq2x/Ce3/2w+/o58J+oWLhn/06XEr07r743X/P f/2yHoV/1vVa8K3EO4rroP/zeu/77m41975+vtFN4X TnDhkcU7FonKhnmmsBBohTzW5fW/Eutlva5uG+wj9/9WawBkrwXHx0i+U74xEu9n/93ON/9nPxNnzW/Y 1UleDheL+9qvOgf5JdVs6KxeBl8P4+Tc5LE85HLN56+Aj/nNPD5X/KDyT8D/9e/od/06bhb3qeZspLu/ 10HH+N0Y5lkTa+v2n6W5HgLZ6V6x1/g/PD/xCX/+k3 Mypc/qczi/kFLtPo9iXB/+P2RBHBP4TG+Gc/+I6KXsWxe/1cfITL/8htzsWpk00+dHRdquzfG3xu+R9+ nvI//Jzlfy4+wuV/Lg7DZT/ETfen/A+/0/I/Fy/DZj/C5Au3r1w+1cUH3lm2no7Fvd/ish8eU/bD95b9 8O/DrGzG7WTf/2DsUcmwy3c+gA8uRkg4p8U/PM80rO qBscMkWkbA1nb/y0TfUytd4niM7p/0a6aO5pAz5V/dU8vm8M/4juB/iNNw02+q/M/SUrjYs9L/fO82fB 5u8D/FVCoYvIf89m0ncHdwlPSd7E+D/6l/ptcWA3F/IU7DZT/Esp8G/0M8DS/Wzs8Wbb7Y/8AutoFQB3 ZeaSpj1QWg+2c3OF3y+B/cB/sd3LAr3b21xLR8qXow JnyE4X/qe2/fX2D43zEB/8NRtvA/+Y9jah+W/2fyo8rB/TT4H/y74H+Hr8QKB7DxHv8+x30iUx2ujm5W /te44IskwU2+Bxj+hzgMp+GyH+L+nu+Yq4xZRGj9k6vrIDQXMXLlxKc+B+eH/yFuhrvhsh/tnnjqg0sx VjCoO5EmOH0m0ts5l9rgWM57U08kuE0IR4F//udrmH lu531fBp/02ZpwE4/e+H39/M/YKEpN1g+Hx/jeE0JL6rS/Fv4+5ecrHh38mFYI3o/F4B/H3THWytVyYF zSnw9Xk/rHMbW/AsE/jqllDFwpdt7/yrAzDqwE+3KX2B4wu8lr15cb8AxVvj+b9W5rft83Kh7lIhfyD5 TL8B46/lbs0Tvn0Hit2WefP0hjxXjjl0mjdk97/E/9 krt0x26+p8P/EOfzRR3+g1ir2cEhn0d2Gg6xzlPopz+96/pKju419k/d/E+H/sKsB2lb+NAx44r7/9Ph f3B+i3+6xT/d4p8O/0Nc/yoPqo6rHbeD/5Q/7PA/Fad1+B/ieDFhh/2oxe11Uu2laWcigwrY+S2r5s10 EdtsnB4d+LmvZljxc1+Kn/uahhU/d/fd1HPRA88ud1 7xTzf/0xn/YN8AuvzUec526z/q225wEjTJki/6a73Nc44Dj0PikPFa7X/xenFgR/xDfF5+YyD+IQ7DeY SbYT2/QxYo9dB20By8SNL+TZ8Qjlh3gdBg/hkW/icOd4fAC6BuR33apXc/AIdhxD/A7T3TB/fW2fcQ4/ L4lcgpRXXq4BZ/o6Vhxc+mvtZxG0N4gdS/M+B/iGU/ A/2PBMaw4bFp6Ow0H5ssLwGg+uD0MWzmQ8XqP1IwB6k8JHYvLsrA+TrY6uDo9kLPrndKm3R3uft5IiEK mXi8pzG0Xl5sm8cEt5Sa25I7ow1Q8/cB/1O+aMD/MHzG4ZSPU0qieu/wPPI/w9ZfA/4Yu4mN3sa+h7js h7jr/sD/6RNoyY8RixinRvmu0rCi+Z9h+Z9h+Z8B/0 PcDSv/MxD/NSa58ydK3/A3mGMQO8laAVONiDu7O663hw616LmHn/Oj+AqY8meQLSq4e+hz6513L+zsz3 53VR4cSf8vp//ad10gLb+8Ij7Pz/92p0XSF/wwvzUz1qrQMRdMI3y/i+YaZZuyn+fne3wo5wdvK8fowA uxhMF9tAcowr3ldwBMu/cH2xCDgTC24xN0XUZ/rnhy wv/g8zP/XNdl/jy7Gl1vLzpM6lYg7SnA/9J2mL24ozf/471d+lWQKO0E/od4Glb+cML/0SpTP25xY9H+ p/7t8D+4P1x/4e/v6DnZN6Bcp4/L/8iqE4Z8pwY/M83/TPM/c6p+MeF/JxIgyMfvJQxK792DG6X9e2O/ Kdug/wHuhsv/5UjxeGbA4Q4g1LB/KR395T+I91Nnf8 Wwcvmok2nm5pSxyuD+B58N/ia2SE44OmkQo76Ep0BvR7PS1RS4QRdQxU9scnL+wfjIj+Wp3MN9yY5STv 9hh1QbO5dC0g+Zviz/syz/syz/s5j/qfda/LMs/lkW/olJF1O6BuS5MT/jAS7pSFbVGzdMy/2+Uuv3hf onmlfZ0K+r8q6olI6xEqo01hGj2G/KDyz4H+KRwtPw Kes4pEopUapAy9hGaM7uz+v5tcz/LPM/y/zPov/Bebbho/uD+heuhfoXceo+hI8Uk3UP/yzGP3X/mf/B 348w8z/AYTgNI/4UOObWw8M/xF3c8d18+4H/0eYZ3UIKl/XVg9u0RGRj5K7zkbiSDNjG0Uqo+GdZ/LMs /lkW/jvNJ2Lhs1vfN0NzD48wH27vF6+to/v9dg7Um3 D/4HcN/0PcDSP/AzwNl/77xCob47D2rp/MPwPL/2zzP/fWYFpF20J7tndi3PW/3vQ/wJ46rcw+wt/TsP KHG/2ErYveIBEebWf5cb4LL+5Q/John Paul/aPhgfHDK2Np3OoP8/A6wlU/aBhaDjElVisTggjAf5m/b/of/H [file] EnmkPl6kiPZ2ZKTtSldJUb0Ir6SdyxO2cqBbYxC1SJLyZjOtRF6I ID Date Data Source [id number] 10/27/2019 07:45:19 AM EST [address] [address] Name: JANEEN JEFFERSONDOB: 1945Sex: FOrdering Provider: LEYDI MELENDREZAuthorisandro Prov: LEYDI GREGGLERReferring Provider: Procedure Performed: XR HIP COMPLETE RIGHTExam Date: 10/27/2019 03:09MRN: [id number] Number: [id number] Class: EmergencyAccount #: [id number] for Exam: right hip pain, fall last nightTechnique: AP and lateral views obtained.Comparison: NoneFindings: Joint space well-maintained. No fracture appreciated. Visualized pelvic bones unremarkable.IMPRESSION: Negative study.Report electronically signed by: MARCY SARGENT On 10/27/2019 7:45 AMWorkstation ID: [id number] Name Value Range Interpretation Code Description Data Elvie rce(s) Supporting Document(s) ID Date Data Source [id number] 10/28/2019 07:35:37 AM EST [facility] [place] SPECIMEN DESCRIPTION MIDSTREAM UR INE,CLEAN CATCHCULTURE RESULTS NO GROWTHREPORT STATUS FINAL 10/28/2019 Name Value Range Interpretation Code Description Data Elvie rce(s) Supporting Document(s) ID Date Data Source [id number] 10/27/2019 07:37:19 AM EST [facility] [place] Name Value Range Interpretation Code Description Data Elvie rce(s) Supporting Document(s) COLOR [facility] APPEARANCE [facility] SPEC GRAV URINE 1.021 (1.003-1.030) [facility] [place] PH URINE 5.5 (5.0-7.5) [facility] LEUK ESTERASE (NEG) A [facility] NITRITE URINE (NEG) [facility] PROTEIN URINE 1+ (NEG) A [facility] GLUCOSE URINE (NEG) [facility] KETONE URINE (NEG) [facility] [place] UROBILINOGEN 0.2 mg/dL (0-1.0) [facility] [place] BILIRUBIN URINE (NEG) [facility] BLOOD/HGB URINE (NEG) [facility] EPITHELIAL CELLS (NEG) [facility] HYALINE CASTS 3.9 [LPF] (0-5) [facility] BACTERIA (NEG) [facility] URINE WBC 6.6 [HPF] (0-8) [facility] URINE RBC 2.6 [HPF] (0-3) [facility] ID Date Data Source [id number] 10/27/2019 03:36:47 AM EST [facility] Name Value Range Interpretation Code Description Data Elvie rce(s) Supporting Document(s) POC SODIUM 141 MMOL/L (136-145) [facility] POC POTASSIUM 4.0 MMOL/L (3.6-5.2) [facility] POC CHLORIDE 106 MMOL/L (100-108) [facility] POC CO2 27 MMOL/L (22-31) [facility] POC ANION GAP 8 MMOL/L (7-16) [facility] POC BUN 20 MG/DL (7-24) [facility] POC CREATININE 1.4 MG/DL (0.6-1.0) H [facility] POC BUNCR 14.3 RATIO (10.0-20.0) [facility] [place] P[place] GLU 114 MG/DL (70-99) H [facility] POC IONIZED CALCIUM 4.8 MG/DL (4.6-5.3) [facility] POC GFR 37 ml/min/1.73m2 (>59) L [facility] POC GFR AMER 45 ml/min/1.73m2 (>59) L [facility] POC GFR INTERP [facility] NORMAL KIDNEY FUNCTION OR MILD DISEASE - GFR >OR= 60CHRONIC KIDNEY DISEASE - GFR 15 - 59RENAL FAILURE - GFR <15 Est. GFR calculation based on the MDRDstudy equation, which assumes a steadystate for creatinine. Est. GFR should notbe used for medication dosing. PERFORM LAB [facility] [place] ID Date Data Source [id number] 10/27/2019 12:09:28 PM EST [facility] Name Value Range Interpretation Code Description Data Elvie rce(s) Supporting Document(s) FOLATE @ >20.0 ng/mL (3.1-17.5) H [facility] [place] [place] [facility] [place] ID Date Data Source [id number] 10/27/2019 12:09:28 PM EST [facility] Name Value Range Interpretation Code Description Data Elvie rce(s) Supporting Document(s) VITAMIN B12 @ 1507 pg/mL (193-986) H [facility] [place] ID Date Data Source [id number] 10/27/2019 08:54:19 AM EST [facility] Name Value Range Interpretation Code Description Data Elvie rce(s) Supporting Document(s) TSH,ULTRASENSITIVE @ 0.591 mIU/L (0.360-4.170) [facility] PERFORMED AT [address] [place] [address] [address] [address] ID Date Data Source [id number] 10/27/2019 08:54:19 AM EST [facility] Name Value Range Interpretation Code Description Data Elvie rce(s) Supporting Document(s) CK 94 U/L (26-192) [facility] ID Date Data Source [id number] 10/27/2019 04:35:08 AM EST [facility] Name Value Range Interpretation Code Description Data Elvie rce(s) Supporting Document(s) TROPONIN I <0.05 ng/mL (<0.05) [facility] [place] Less than 0.05: Myocardial injury unlike lyGreater than or equal to 0.05: Highly suggestive of myocardial injuryCorrelation with rise and/or fall ofserial troponins, clinical symptomsand ECG changes is necessary. ID Date Data Source [id number] 10/27/2019 04:35:08 AM EST [facility] Name Value Range Interpretation Code Description Data Elvie rce(s) Supporting Document(s) TOTAL PROTEIN 6.6 g/dL (6.4-8.2) [facility] ALBUMIN 2.8 g/dL (3.2-4.5) L [facility] GLOBULIN 3.8 g/dL (2.7-4.3) [facility] ALB/GLOB RATIO 0.7 RATIO [facility] BILIRUBIN,TOTAL 0.2 mg/dL (0.0-1.0) [facility] BILIRUBIN,CONJUGATED <0.1 mg/dL (0.0-0.3) [facility] BILIRUBIN,UNCONJ. (0.0-0.7) [facility] ALKALINE PHOSPHATASE 112 U/L (45-117) [facility] AST (SGOT) 35 U/L (11-39) [facility] ALT (SGPT) 42 U/L (12-78) [facility] ID Date Data Source [id number] 10/27/2019 04:12:19 AM EST [facility] Name Value Range Interpretation Code Description Data Elvie rce(s) Supporting Document(s) WBC 6.0 10*3/uL (4.1-11.0) [facility] [place] [facility] [place] RBC 3.15 10*6/uL (4.00-5.40) L [facility] [place] [facility] HGB 9.7 g/dL (12.0-16.0) L [facility] [place] [facility] [place] HCT 30.4 % (36.0-47.0) L [facility] [place] [facility] [place] MCV 96.5 fL (80.0-95.0) H [facility] [place] [facility] [place] MCH 30.7 pg (27.0-32.0) [facility] [place] [facility] MCHC 31.8 g/dL (32.0-36.0) L [facility] [place] [facility] [place] RDW 14.6 % (10.5-14.5) H [facility] PLT 207 10*3/uL (150-450) [facility] MPV 6.9 fL (7.1-10.7) L [facility] NEUT % 55.8 % (35.0-75.0) [facility] LYMPH % 31.3 % (16.0-52.0) [facility] [place] MONO % 8.9 % (0.0-8.0) H [facility] EOS % 3.2 % (0.0-5.0) [facility] BASO % 0.8 % (0.0-4.0) [facility] NEUT # 3.4 10*3/uL (1.8-7.7) [facility] LYMPH # 1.9 10*3/uL (1.2-4.8) [facility] [place] MONO # 0.5 10*3/uL (0.0-0.8) [facility] Eosinophils [#/volume] in Blood by Automated count 0.2 10*3/uL (0.0-0 .5) [facility] BASO # 0.0 10*3/uL (0.0-0.2) [facility] ID Date Data Source [id number] 10/01/2019 01:13:57 PM EST [facility] - CORE SPECIMEN DESCRIPTION URINE, COLLE CTION METHOD NOT SPECIFIEDCULTURE RESULTS NO GROWTHREPORT STATUS FINAL 10/01/2019 Name Value Range Interpretation Code Description Data Elvie rce(s) Supporting Document(s) ID Date Data Source [id number] 09/30/2019 12:35:20 PM EST [facility] Name Value Range Interpretation Code Description Data Elvie rce(s) Supporting Document(s) WBC 7.2 10*3/uL (4.1-11.0) [facility] - CORE RBC 3.29 10*6/uL (4.00-5.40) L [facility] - CORE HGB 10.4 g/dL (12.0-16.0) L [facility] - CORE HCT 31.6 % (36.0-47.0) L [facility] - CORE MCV 96.0 fL (80.0-95.0) H [facility] - CORE MCH 31.8 pg (27.0-32.0) [facility] - CORE MCHC 33.1 g/dL (32.0-36.0) [facility] - CORE RDW 13.7 % (10.5-14.5) [facility] - CORE PLT 255 10*3/uL (150-450) [facility] - CORE MPV 7.0 fL (7.1-10.7) L [facility] - CORE NEUT % 55.9 % (35.0-75.0) [facility] - CORE LYMPH % 29.1 % (16.0-52.0) [facility] - CORE MONO % 10.7 % (0.0-8.0) H [facility] - CORE EOS % 4.0 % (0.0-5.0) [facility] - CORE BASO % 0.3 % (0.0-4.0) [facility] - CORE NEUT # 4.0 10*3/uL (1.8-7.7) [facility] [place] [facility] - CORE LYMPH # 2.1 10*3/uL (1.2-4.8) [facility] - CORE MONO # 0.8 10*3/uL (0.0-0.8) Laboratory [facility] of [facility] - CORE Eosinophils [#/volume] in Blood by Automated count 0.3 10*3/uL (0.0-0 .5) [facility] [place] - CORE BASO # 0.0 10*3/uL (0.0-0.2) [facility] - [facility] ID Date Data Source [id number] 09/30/2019 01:54:30 PM EST [facility] Name Value Range Interpretation Code Description Data Elvie rce(s) Supporting Document(s) VITAMIN B12 @ 1719 pg/mL (193-986) H [facility] - C[facility] ID Date Data Source [id number] 09/30/2019 01:54:30 PM EST [facility] Name Value Range Interpretation Code Description Data Elvie rce(s) Supporting Document(s) SODIUM 145 mmol/L (136-145) [facility] - CORE POTASSIUM 4.1 mmol/L (3.6-5.2) [facility] [place] [place] [facility] - CORE CHLORIDE 108 mmol/L (100-108) [facility] - CORE CO2 30 mmol/L (22-31) [facility] - CORE ANION GAP 7 mmol/L (7-16) [facility] - CORE UREA NITROGEN 17 mg/dL (7-24) [facility] - CORE CREATININE 1.35 mg/dL (0.60-1.00) H [facility] - CORE BUN/CREAT RATIO 12.6 RATIO (10.0-20.0) [facility] [place] [facility] - CORE GLUCOSE 105 mg/dL (70-99) H [facility] [place] [place] [facility] - CORE CALCIUM 8.7 mg/dL (8.4-10.2) [facility] [place] [facility] - CORE TOTAL PROTEIN 6.8 g/dL (6.4-8.2) [facility] - CORE ALBUMIN 3.2 g/dL (3.2-4.5) [facility] [place] [facility] - CORE GLOBULIN 3.6 g/dL (2.7-4.3) [facility] - CORE ALB/GLOB RATIO 0.9 RATIO [facility] - CORE ALKALINE PHOSPHATASE 131 U/L (45-117) H [facility] [place] [facility] - CORE BILIRUBIN,TOTAL 0.2 mg/dL (0.0-1.0) [facility] - CORE AST (SGOT) 68 U/L (11-39) H [facility] [place] [facility] [place] - CORE ALT (SGPT) 64 U/L (12-78) [facility] [place] [facility] - CORE GFR 38 ml/min/1.73m2 (>59) L [facility] - CORE GFR ( AMER) 47 ml/min/1.73m2 (>59) L Labo [facility] [place] [facility] [place] - CORE GFR INTERPRETATION [facility] [place] [place] [facility] - CORE --NORMAL KIDNEY FUNCTION OR MILD DISEASE - GFR >OR= 60CHRONIC KIDNEY DISEASE - GFR 15 - 59RENAL FAILURE - GFR <15 Est. GFR calculation based on the MDRDstudy equation, which assumes a steadystate for creatinine. Est. GFR should notbe used for medication dosing. ID Date Data Source [id number] 09/30/2019 01:54:30 PM EST [facility] [place] Name Value Range Interpretation Code Description Data Elvie rce(s) Supporting Document(s) DIGOXIN 0.6 ng/mL (0.8-2.0) L [facility] [place] ID Date Data Source [id number] 09/30/2019 01:54:30 PM EST [facility] [place] Name Value Range Interpretation Code Description Data Elvie rce(s) Supporting Document(s) MAGNESIUM 2.0 mg/dL (1.7-2.4) [facility] [place] ID Date Data Source [id number] 09/30/2019 01:54:30 PM EST [facility] [place] Name Value Range Interpretation Code Description Data Elvie rce(s) Supporting Document(s) FOLATE @ >20.0 ng/mL (3.1-17.5) H [facility] [place] Procedure Social History Code Duration Value Status Description Data Source(s ) Smoking 10/27/2020 12:00:00 AM EST Current Smoker completed Curre nt Smoker eCW1 ([facility]) Smoking 10/27/2020 12:00:00 AM EST Current Smoker completed Curre nt Smoker eCW1 ([facility]) Smoking 10/27/2020 12:00:00 AM EST Current Smoker completed Curre nt Smoker eCW1 ([facility]) Smoking 10/27/2020 12:00:00 AM EST Current Smoker completed Curre nt Smoker eCW1 ([facility]) Smoking 09/16/2020 12:00:00 AM EST Current Smoker completed Curre nt Smoker eCW1 ([facility]) Smoking 09/16/2020 12:00:00 AM EST Current Smoker completed Curre nt Smoker eCW1 ([facility]) Smoking 09/16/2020 12:00:00 AM EST Current Smoker completed Curre nt Smoker eCW1 ([facility]) Smoking 09/16/2020 12:00:00 AM EST Current Smoker completed Curre nt Smoker eCW1 ([facility]) Smoking 09/16/2020 12:00:00 AM EST Current Smoker completed Curre nt Smoker eCW1 ([facility]) Smoking 09/16/2020 12:00:00 AM EST Current Smoker completed Curre nt Smoker eCW1 ([facility]) Smoking 09/16/2020 12:00:00 AM EST Current Smoker completed Curre nt Smoker eCW1 ([facility]) Smoking 09/16/2020 12:00:00 AM EST Current Smoker completed Curre nt Smoker eCW1 ([facility]) Smoking 09/16/2020 12:00:00 AM EST Current Smoker completed Curre nt Smoker eCW1 ([facility]) Smoking 09/16/2020 12:00:00 AM EST Current Smoker completed Curre nt Smoker eCW1 ([facility]) Smoking 09/16/2020 12:00:00 AM EST Current Smoker completed Curre nt Smoker eCW1 ([facility]) Smoking 09/16/2020 12:00:00 AM EST Current Smoker completed Curre nt Smoker eCW1 ([facility]) Smoking 09/06/2020 12:00:00 AM EST Current Smoker completed Curre nt Smoker eCW1 ([facility]) Smoking 09/06/2020 12:00:00 AM EST Current Smoker completed Curre nt Smoker eCW1 ([facility]) Smoking 09/06/2020 12:00:00 AM EST Current Smoker completed Curre nt Smoker eCW1 ([facility]) Smoking 09/06/2020 12:00:00 AM EST Current Smoker completed Curre nt Smoker eCW1 ([facility]) Smoking 09/06/2020 12:00:00 AM EST Current Smoker completed Curre nt Smoker eCW1 ([facility]) Smoking 09/06/2020 12:00:00 AM EST Current Smoker completed Curre nt Smoker eCW1 ([facility]) Smoking 09/06/2020 12:00:00 AM EST Current Smoker completed Curre nt Smoker eCW1 ([facility]) Smoking 09/06/2020 12:00:00 AM EST Current Smoker completed Curre nt Smoker eCW1 ([facility]) Smoking 09/06/2020 12:00:00 AM EST Current Smoker completed Curre nt Smoker eCW1 ([facility]) Smoking 08/25/2020 12:00:00 AM EDT Current Smoker completed Curre nt Smoker eCW1 ([facility]) Smoking 08/25/2020 12:00:00 AM EDT Current Smoker completed Curre nt Smoker eCW1 ([facility]) Smoking 08/04/2020 12:00:00 AM EDT Current Smoker completed Curre nt Smoker eCW1 ([facility]) Smoking 08/04/2020 12:00:00 AM EDT Current Smoker completed Curre nt Smoker eCW1 ([facility]) Smoking 08/04/2020 12:00:00 AM EDT Current Smoker completed Curre nt Smoker eCW1 ([facility]) Smoking 06/14/2020 02:12:00 AM EDT Daily Smoker completed Daily [facility] Alcohol intake 10/27/2019 12:00:00 AM EST No completed [facility] Cigarette pack-years 10/27/2019 12:00:00 AM EST UNK completed [facility] Cigarettes smoked current (pack per day) - Reported 10/27/20 19 12:00:00 AM EST UNK completed [facility] Smoking 10/27/2019 12:00:00 AM EST Former smoker completed Former smoker [facility] Vital Signs ID Date Data Source UNK Name Value Range Interpretation Code Description Data Source(s) [place] body weight 120 [lb_av] 120 [lb_av] FLORENCE Kruse ([facility], ) Body mass index (BMI) [Ratio] 26.6 kg/m2 26.6 k g/m2 MEDAUDRA ([facility], ) Body weight 155.00 [lb_av] 155.00 [lb_av] FLORENCE Kruse ([facility], ) Body height 64 [in_i] 64 [in_i] MEDENT ([facility], ) 5'4" Respiratory rate 14 /min 14 /min MEDENT ( [facility], ) Heart rate 68 /min 68 /min MEDENT ([facility], ) Diastolic blood pressure 70 mm[Hg] 70 mm[Hg] MEDENT ([facility], ) Systolic blood pressure 105 mm[Hg] 105 mm[Hg] M EDENT ([facility], ) Diastolic blood pressure--sitting 76 mm[Hg] 76 mm[Hg] MEDENT ([facility]) [place], adult cuff/Ra Systolic blood pressure--sitting 156 mm[Hg] 156 mm[Hg] MEDENT ([facility]) [place], adult cuff/Ra Heart rate 80 /min 80 /min MEDENT ([facility] Body mass index (BMI) [Ratio] 26.8 kg/m2 26.8 k g/m2 MEDENT ([facility]) Body height 64 [in_i] 64 [in_i] MEDENT ([facility] 5'4" Body weight 156.00 [lb_av] 156.00 [lb_av] MEDEN T ([facility]) Diastolic blood pressure 80 mm[Hg] 80 mm[Hg] eCW1 ([facility]) Systolic blood pressure 128 mm[Hg] 128 mm[Hg] e CW1 ([facility]) Body temperature 98.0 [degF] 98.0 [degF] eCW1 ( [facility]) Respiratory rate 16 /min 16 /min eCW1 ([facility]) Heart rate 88 /min 88 /min eCW1 ([facility] Body mass index (BMI) [Ratio] 26.80 kg/m2 26.80 kg/m2 eCW1 ([facility]) Body height [in_i] eCW1 ([facility]) Body weight 156.12 [lb_av] 156.12 [lb_av] eCW1 ([facility]) Diastolic blood pressure 72 mm[Hg] 72 mm[Hg] eCW1 ([facility]) Systolic blood pressure 123 mm[Hg] 123 mm[Hg] e CW1 ([facility]) Body temperature 99.1 [degF] 99.1 [degF] eCW1 ( [facility]) Respiratory rate 20 /min 20 /min eCW1 ([facility]) Heart rate 86 /min 86 /min eCW1 ([facility] Body mass index (BMI) [Ratio] 26.60 kg/m2 26.60 kg/m2 eCW1 ([facility]) Body height [in_i] eCW1 ([facility]) Body weight 155 [lb_av] 155 [lb_av] eCW1 ([facility]) Diastolic blood pressure 62 mm[Hg] 62 mm[Hg] eCW1 ([facility]) Systolic blood pressure 118 mm[Hg] 118 mm[Hg] e CW1 ([facility]) Body temperature 98.6 [degF] 98.6 [degF] eCW1 ( [facility]) Respiratory rate 20 /min 20 /min eCW1 ([facility]) Heart rate 103 /min 103 /min eCW1 ([facility]) Body mass index (BMI) [Ratio] 26.60 kg/m2 26.60 kg/m2 W1 ([facility]) Body height [in_i] eCW1 ([facility]) Body weight 155 [lb_av] 155 [lb_av] eCW1 ([facility]) Diastolic blood pressure 72 mm[Hg] 72 mm[Hg] eCW1 ([facility]) Systolic blood pressure 122 mm[Hg] 122 mm[Hg] e CW1 ([facility]) Body temperature 97.1 [degF] 97.1 [degF] eCW1 ( [facility]) Respiratory rate 18 /min 18 /min eCW1 ([facility]) Heart rate 78 /min 78 /min eCW1 ([facility]) Body mass index (BMI) [Ratio] 25.74 kg/m2 25.74 kg/m2 eCW1 ([facility]) Body height [in_i] eCW1 ([facility]) Body weight 150 [lb_av] 150 [lb_av] eCW1 ([facility]) Deprecated Oxygen saturation in Capillary blood by Oximetry 98 % Normal (applies to non-numeric results) 98 % [facility] Body temperature 36.7 torrie Normal (applies to non-numeric results) 36.7 torrie [facility] Respiratory rate 18 min Normal (applies to non-numeric results) 18 min [facility] Heart rate 73 min Normal (applies to non-numeric resul ts) 73 min [facility] Diastolic blood pressure 72 mm[Hg] Normal (applies to non-numeric results) 72 mm[Hg] [facility] Systolic blood pressure 136 mm[Hg] Normal (applies t o non-numeric results) 136 mm[Hg] [facility] Body weight Measured 70.307 kg Normal (applies to n on-numeric results) 70.307 kg [facility] Body height 162.1536 cm Normal (applies to non-numeric res ults) 162.1536 cm [facility] Body mass index (BMI) [Ratio] 26.61 kg/m2 No rmal (applies to non-numeric results) 26.61 kg/m2 [facility] Oxygen saturation in Arterial blood by Pulse oximetry 96 % 96 % [facility] Respiratory rate 19 /min 19 /min [facility] Body temperature 36.61 Torrie 36.61 Torrie [facility] Heart rate 88 /min 88 /min [facility] Diastolic blood pressure 78 mm[Hg] 78 mm[Hg] [facility] Systolic blood pressure 127 mm[Hg] 127 mm[Hg] [facility] Body mass index (BMI) [Ratio] 24.63 kg/m2 24.63 kg/m2 [facility] Body weight 67.132 kg 67.132 kg [facility] Body height 165.1 cm 165.1 cm [facility] Body surface area 1.72 m2 1.72 m2 [facility] ([facility] Body mass index (BMI) [Ratio] 25.2 kg/m2 25.2 k g/m2 [facility] Body height 64 [in_i] 64 [in_i] [facility] ([facility] 5'4" Body weight 147.00 [lb_av] 147.00 [lb_av] MEDEN T ([facility]) Heart rate 78 /min 78 /min [facility] ([facility] Diastolic blood pressure 62 mm[Hg] 62 mm[Hg] [facility] ([facility]) Systolic blood pressure 108 mm[Hg] 108 mm[Hg] M EDENT ([facility]) Patient Treatment Plan of Care Planned Activity Planned Date Details Description Data Source (s) Ascorbic Acid 226 MG / Beta Carotene 143 20 UNT / cuprous oxide 0.8 MG / dl-alpha tocopheryl acetate 200 UNT / Zinc Oxide 34.8 MG Oral Capsule [PreserVision] 11/02/2020 12:00:00 AM EST eCW1 ([facility]) Ascorbic Acid 226 MG / Beta Carotene 143 20 UNT / cuprous oxide 0.8 MG / dl-alpha tocopheryl acetate 200 UNT / Zinc Oxide 34.8 MG Oral Capsule [PreserVision] 11/02/2020 12:00:00 AM EST eCW1 ([facility]) Ciprofloxacin 500 MG Oral Tablet [Cipro] 09/09/2020 12:00:00 AM EST eCW1 ([facility]) Ciprofloxacin 500 MG Oral Tablet [Cipro] 09/09/2020 12:00:00 AM EST eCW1 ([facility]) Ciprofloxacin 500 MG Oral Tablet [Cipro] 09/09/2020 12:00:00 AM EST eCW1 ([facility]) Ciprofloxacin 500 MG Oral Tablet [Cipro] 09/09/2020 12:00:00 AM EST eCW1 ([facility]) Ciprofloxacin 500 MG Oral Tablet [Cipro] 09/09/2020 12:00:00 AM EST eCW1 ([facility]) Ciprofloxacin 500 MG Oral Tablet [Cipro] 09/09/2020 12:00:00 AM EST eCW1 ([facility]) Ciprofloxacin 250 MG Oral Tablet [Cipro] 09/06/2020 12:00:00 AM EST eCW1 ([facility]) Ciprofloxacin 250 MG Oral Tablet [Cipro] 09/06/2020 12:00:00 AM EST eCW1 ([facility]) Ciprofloxacin 250 MG Oral Tablet [Cipro] 09/06/2020 12:00:00 AM EST eCW1 ([facility]) Ciprofloxacin 250 MG Oral Tablet [Cipro] 09/06/2020 12:00:00 AM EST eCW1 ([facility]) Ciprofloxacin 250 MG Oral Tablet [Cipro] 09/06/2020 12:00:00 AM EST eCW1 ([facility]) Ciprofloxacin 250 MG Oral Tablet [Cipro] 09/06/2020 12:00:00 AM EST eCW1 ([facility]) Ciprofloxacin 250 MG Oral Tablet [Cipro] 09/06/2020 12:00:00 AM EST eCW1 ([facility]) Ciprofloxacin 250 MG Oral Tablet [Cipro] 09/06/2020 12:00:00 AM EST eCW1 ([facility]) Ciprofloxacin 250 MG Oral Tablet [Cipro] 09/06/2020 12:00:00 AM EST eCW1 ([facility]) Rosuvastatin calcium 10 MG Oral Tablet [Crestor] 08/25/2020 12:00:0 0 AM EDT eCW1 ([facility]) Rosuvastatin calcium 10 MG Oral Tablet [Crestor] 08/25/2020 12:00:0 0 AM EDT eCW1 ([facility]) Oxygen 08/04/2020 12:00:00 AM EDT e CW1 ([facility]) Oxygen 08/04/2020 12:00:00 AM EDT e CW1 ([facility]) Oxygen 08/04/2020 12:00:00 AM EDT e CW1 ([facility]) Cyclobenzaprine hydrochloride 10 MG Oral Tablet 08/07/2018 12:00:00 AM EDT [facility] Vancomycin HCl 50 MG/ML SOLR [facility] Famotidine 20 MG Oral Tablet [facility] 1 ML Vitamin B 12 1 MG/ML Prefilled Syringe [facility] Acetaminophen 325 MG / Hydrocodone Bitartrate 5 MG Oral Tablet [facility] Acetaminophen 325 MG / Hydrocodone Bitartrate 5 MG Oral Tablet [facility] Clonazepam 0.5 MG Oral Tablet [facility] Clonazepam 0.5 MG Oral Tablet [facility] MELATONIN PO [facility] 24 HR Nicotine 0.292 MG/HR Transdermal Patch [facility] Calcium Carbonate 550 MG / Magnesium Hydroxide 110 MG Chewable Tabl et [facility] 60 ACTUAT Budesonide 0.16 MG/ACTUAT / fo rmoterol fumarate 0.0045 MG/ACTUAT Metered Dose Inhaler [facility] [id number] (DEPLIN 7.5 PO) [facility] ferrous gluconate 324 MG Oral Tablet [facility] carvedilol 3.125 MG Oral Tablet [facility] duloxetine 60 MG Delayed Release Oral Capsule [facility]
[2020-11-17] MEDS ORDERED: NS 500 ML IV ONE (15:30)
[2020-11-17] MEDS ORDERED: DOBUTamine HCL 500,000 MCG in IV 1 EA IV SCH (15:30)
[2020-11-17] MEDS ORDERED: CARB25TA9 PO (15:36)
[2020-11-17] MEDS ORDERED: ACET1TAB16 PO (15:36)
[2020-11-17] MEDS ORDERED: BISO5TAB14 PO (15:36)
[2020-11-17] MEDS ORDERED: ROSU40TA4 PO (15:36)
[2020-11-17 15:44] LABS: RSV AMPLIFICATION NEGATIVE (NEGATIVE)
--- OUTSIDE RECORDS SUMMARY | 2020-11-17 15:46 | CCD ---
Author Author [facility] Organization [facility] Address Unknown Phone Unavailable Care Team Providers Care Accident Examiner Name Role Phone Abdon Madden MD Unavailable [...] Unavailable Abdon Madden MD Unavailable Unavailable Abdon Maddne MD Unavailable Unavailable Abdon Madden MD Unavailable [...] Madden MD Unavailable Unavailable LUIS, V JE IT RISK AND ASSURANCE MANAGER Unavailable Unavailable LUIS, V JE IT RISK AND ASSURANCE MANAGER Unavailable Unavailable LUIS, V JE IT RISK AND ASSURANCE MANAGER Unavailable Unavailable LUIS, V JE IT RISK AND ASSURANCE MANAGER Unavailable Unavailable LUIS, V JE IT RISK AND ASSURANCE MANAGER Unavailable Unavailable LUIS, V JE IT RISK AND ASSURANCE MANAGER Unavailable Unavailable LUIS, V JE IT RISK AND ASSURANCE MANAGER Unavailable Unavailable LUIS, V JE IT RISK AND ASSURANCE MANAGER Unavailable Unavailable LUIS, V JE IT RISK AND ASSURANCE MANAGER Unavailable Unavailable LUIS, V JE IT RISK AND ASSURANCE MANAGER Unavailable Unavailable LUIS, V JE IT RISK AND ASSURANCE MANAGER Unavailable Unavailable LUIS, V JE IT RISK AND ASSURANCE MANAGER Unavailable Unavailable LUIS, V JE IT RISK AND ASSURANCE MANAGER Unavailable Unavailable LUIS, V JE IT RISK AND ASSURANCE MANAGER Unavailable Unavailable LUIS, V JE IT RISK AND ASSURANCE MANAGER Unavailable Unavailable LUIS, V JE IT RISK AND ASSURANCE MANAGER Unavailable Unavailable LUIS, V JE IT RISK AND ASSURANCE MANAGER Unavailable Unavailable LUIS, V JE IT RISK AND ASSURANCE MANAGER Unavailable Unavailable LUIS, V JE IT RISK AND ASSURANCE MANAGER Unavailable Unavailable LUIS, V JE IT RISK AND ASSURANCE MANAGER Unavailable Unavailable LUIS, V JE IT RISK AND ASSURANCE MANAGER Unavailable Unavailable LUIS, V JE IT RISK AND ASSURANCE MANAGER Unavailable Unavailable LUIS, V JE IT RISK AND ASSURANCE MANAGER Unavailable Unavailable LUIS, V JE IT RISK AND ASSURANCE MANAGER Unavailable Unavailable LUIS, V JE IT RISK AND ASSURANCE MANAGER Unavailable Unavailable LUIS, V JE IT RISK AND ASSURANCE MANAGER Unavailable Unavailable LUIS, V JE IT RISK AND ASSURANCE MANAGER Unavailable Unavailable LUIS, V JE IT RISK AND ASSURANCE MANAGER Unavailable Unavailable LUIS, V JE IT RISK AND ASSURANCE MANAGER Unavailable Unavailable LUIS, V JE IT RISK AND ASSURANCE MANAGER Unavailable Unavailable LUIS, V JE IT RISK AND ASSURANCE MANAGER Unavailable Unavailable LUIS, V JE IT RISK AND ASSURANCE MANAGER Unavailable Unavailable LUIS, V JE IT RISK AND ASSURANCE MANAGER Unavailable Unavailable LUIS, V JE IT RISK AND ASSURANCE MANAGER Unavailable Unavailable LUIS, V JE IT RISK AND ASSURANCE MANAGER Unavailable Unavailable LUIS, V JE IT RISK AND ASSURANCE MANAGER Unavailable Unavailable LUIS, V JE IT RISK AND ASSURANCE MANAGER Unavailable Unavailable LUIS, V JE IT RISK AND ASSURANCE MANAGER Unavailable Unavailable LUIS, V JE IT RISK AND ASSURANCE MANAGER Unavailable Unavailable LUIS, V JE IT RISK AND ASSURANCE MANAGER Unavailable Unavailable LUIS, V JE IT RISK AND ASSURANCE MANAGER Unavailable Unavailable LUIS, V JE IT RISK AND ASSURANCE MANAGER Unavailable Unavailable LUIS, V JE IT RISK AND ASSURANCE MANAGER Unavailable Unavailable LUIS, V JE IT RISK AND ASSURANCE MANAGER Unavailable Unavailable LUIS, V JE IT RISK AND ASSURANCE MANAGER Unavailable Unavailable LUIS, V JE IT RISK AND ASSURANCE MANAGER Unavailable Unavailable LUIS, V JE IT RISK AND ASSURANCE MANAGER Unavailable Unavailable LUIS, V JE IT RISK AND ASSURANCE MANAGER Unavailable Unavailable LUIS, V JE IT RISK AND ASSURANCE MANAGER Unavailable Unavailable LUIS, V JE IT RISK AND ASSURANCE MANAGER Unavailable Unavailable LUIS, V JE IT RISK AND ASSURANCE MANAGER Unavailable Unavailable LUIS, V JE IT RISK AND ASSURANCE MANAGER Unavailable Unavailable LUIS, V JE IT RISK AND ASSURANCE MANAGER Unavailable Unavailable LUIS, V JE IT RISK AND ASSURANCE MANAGER Unavailable Unavailable LUIS, V JE IT RISK AND ASSURANCE MANAGER Unavailable Unavailable LUIS, V JE IT RISK AND ASSURANCE MANAGER Unavailable Unavailable LUIS, V JE IT RISK AND ASSURANCE MANAGER Unavailable Unavailable LEFTY GARNETT MD Unavailable Unavailable LEFTY GARNETT MD Unavailable Unavailable LEFTY GARNETT MD Unavailable Unavailable LEFTY GARNETT MD Unavailable Unavailable LEFTY GARNETT MD Unavailable Unavailable LEFTY GARNETT MD Unavailable Unavailable Mayra Hendricks SOLAR ENERGY SALES SPECIALIST Unavailable Unavailable Alberry, D Page SOLAR ENERGY SALES SPECIALIST Unavailable Unavailable Alberry, D Page SOLAR ENERGY SALES SPECIALIST Unavailable Unavailable Alberry, D Page SOLAR ENERGY SALES SPECIALIST Unavailable Unavailable Alberry, D Page SOLAR ENERGY SALES SPECIALIST Unavailable Unavailable Alberry, D Page SOLAR ENERGY SALES SPECIALIST Unavailable Unavailable Alberry, D Page SOLAR ENERGY SALES SPECIALIST Unavailable Unavailable Alberry, D Page SOLAR ENERGY SALES SPECIALIST Unavailable Unavailable Alberry, D Page SOLAR ENERGY SALES SPECIALIST Unavailable Unavailable Alberry, D Page SOLAR ENERGY SALES SPECIALIST Unavailable Unavailable Alberry, D Page SOLAR ENERGY SALES SPECIALIST Unavailable Unavailable Alberry, D Page SOLAR ENERGY SALES SPECIALIST Unavailable Unavailable Alberry, D Page SOLAR ENERGY SALES SPECIALIST Unavailable Unavailable Alberry, D Page SOLAR ENERGY SALES SPECIALIST Unavailable Unavailable Alberry, D Page SOLAR ENERGY SALES SPECIALIST Unavailable Unavailable Alberry, D Page SOLAR ENERGY SALES SPECIALIST Unavailable Unavailable Alberry, D Page SOLAR ENERGY SALES SPECIALIST Unavailable Unavailable Alberry, D Page SOLAR ENERGY SALES SPECIALIST Unavailable Unavailable Alberry, D Page SOLAR ENERGY SALES SPECIALIST Unavailable Unavailable Alberry, D Page SOLAR ENERGY SALES SPECIALIST Unavailable Unavailable Alberry, D Page SOLAR ENERGY SALES SPECIALIST Unavailable Unavailable Alberry, D Page SOLAR ENERGY SALES SPECIALIST Unavailable Unavailable Alberry, D Page SOLAR ENERGY SALES SPECIALIST Unavailable Unavailable Alberry, D Page SOLAR ENERGY SALES SPECIALIST Unavailable Unavailable Alberry, D Page SOLAR ENERGY SALES SPECIALIST Unavailable Unavailable Alberry, D Page SOLAR ENERGY SALES SPECIALIST Unavailable Unavailable Alberry, D Page SOLAR ENERGY SALES SPECIALIST Unavailable Unavailable Alberry, D Page SOLAR ENERGY SALES SPECIALIST Unavailable Unavailable Alberry, D Page SOLAR ENERGY SALES SPECIALIST Unavailable Unavailable Alberry, D Page SOLAR ENERGY SALES SPECIALIST Unavailable Unavailable Alberry, D Page SOLAR ENERGY SALES SPECIALIST Unavailable Unavailable Alberry, D Page SOLAR ENERGY SALES SPECIALIST Unavailable Unavailable Alberry, D Page SOLAR ENERGY SALES SPECIALIST Unavailable Unavailable Alberry, D Page SOLAR ENERGY SALES SPECIALIST Unavailable Unavailable Alberry, D Page SOLAR ENERGY SALES SPECIALIST Unavailable Unavailable Alberry, D Page SOLAR ENERGY SALES SPECIALIST Unavailable Unavailable Alberry, D Page SOLAR ENERGY SALES SPECIALIST Unavailable Unavailable Alberry, D Page SOLAR ENERGY SALES SPECIALIST Unavailable Unavailable Alberry, D Page SOLAR ENERGY SALES SPECIALIST Unavailable Unavailable Alberry, D Page SOLAR ENERGY SALES SPECIALIST Unavailable Unavailable Alberry, D Page SOLAR ENERGY SALES SPECIALIST Unavailable Unavailable Alberry, D Page SOLAR ENERGY SALES SPECIALIST Unavailable Unavailable Alberry, D Page SOLAR ENERGY SALES SPECIALIST Unavailable Unavailable Alberry, D Page SOLAR ENERGY SALES SPECIALIST Unavailable Unavailable Alberry, D Page SOLAR ENERGY SALES SPECIALIST Unavailable Unavailable Alberry, D Page SOLAR ENERGY SALES SPECIALIST Unavailable Unavailable Alberry, D Page SOLAR ENERGY SALES SPECIALIST Unavailable Unavailable Kimmy Wang MD Unavailable Unavailable [...] Celestina COPPOLA MD Unavailable Unavailable ANTECOL, Celestina CPOPOLA MD Unavailable Unavailable ANTECOL, Celestina COPPOLA MD [...] e Clairebaran-Jahromi, Melvin MD Unavailable Unavailabl e Calirebaran-Jahromi, Melvin MD Unavailable Unavailabl e Clairebarjudi-Jahromi Melvin [...] Melvin MD Unavailable Unavailabl e Raya Gutierrez IT RISK AND ASSURANCE MANAGER Unavailable Unavailable Ogunsedmakenna Raya IT RISK AND ASSURANCE MANAGER Unavailable Unavailable Ogunsedmakenna Raya IT RISK AND ASSURANCE MANAGER Unavailable Unavailable Ogunsedmakenna Raya IT RISK AND ASSURANCE MANAGER Unavailable Unavailable Ogunsede, Raya IT RISK AND ASSURANCE MANAGER Unavailable Unavailable Ogunsede, Raya IT RISK AND ASSURANCE MANAGER Unavailable Unavailable Ogunsede, Raya IT RISK AND ASSURANCE MANAGER Unavailable Unavailable Ogunsede, Raya IT RISK AND ASSURANCE MANAGER Unavailable Unavailable Ogunsede, Raya IT RISK AND ASSURANCE MANAGER Unavailable Unavailable Ogunsede, Raya IT RISK AND ASSURANCE MANAGER Unavailable Unavailable Ogunsede, Raya IT RISK AND ASSURANCE MANAGER Unavailable Unavailable Ogunsede, Raya IT RISK AND ASSURANCE MANAGER Unavailable Unavailable Ogunsede, Raya IT RISK AND ASSURANCE MANAGER Unavailable Unavailable Ogunsede, Raya IT RISK AND ASSURANCE MANAGER Unavailable Unavailable Ogunsede, Raya IT RISK AND ASSURANCE MANAGER Unavailable Unavailable Ogunsede, Raya IT RISK AND ASSURANCE MANAGER Unavailable Unavailable Ogunsede, Raya IT RISK AND ASSURANCE MANAGER Unavailable Unavailable Ogunsede, Raya IT RISK AND ASSURANCE MANAGER Unavailable Unavailable Ogunsede, Raya IT RISK AND ASSURANCE MANAGER Unavailable Unavailable Ogunsede, Raya IT RISK AND ASSURANCE MANAGER Unavailable Unavailable VICENTA MASTERSON MD Unavailable Unavailable [...] Unavailable Unavailable VICENTA MASTERSON MD Unavailable Unavailable VIECNTA MASTERSON MD Unavailable Unavailable VICENTA MASTERSON MD Unavailable Unavailable VICENTA MASTERSON MD Unavailable Unavailable VICENTA MASTERSON MD Unavailable Unavailable VICENTA MASTERSON MD Unavailable Unavailable VICENTA MASTERSON MD Unavailable Unavailable VICENTA MASTERSON MD Unavailable Unavailable VICENTA MASTERSON MD Unavailable Unavailable VICENTA MASTERSON MD Unavailable Unavailable VICENTA MASTERSON MD Unavailable Unavailable VICENTA MASTERSON MD Unavailable Unavailable VCIENTA MASTERSON MD Unavailable Unavailable ASHVIN, Mayra BILLS [...] Ali, Kaila FREITAS Unavailable Unavailable Ali, Kaila FREIATS Unavailable Unavailable Ali, Kaila FREITAS Unavailable Unavailable [...] GARNETT MD Unavailable Unavailable LUIS, V JE IT RISK AND ASSURANCE MANAGER Unavailable Unavailable LUIS, V JE IT RISK AND ASSURANCE MANAGER Unavailable Unavailable LUIS, V JE IT RISK AND ASSURANCE MANAGER Unavailable Unavailable LUIS, V JE IT RISK AND ASSURANCE MANAGER Unavailable Unavailable LUIS, V JE IT RISK AND ASSURANCE MANAGER Unavailable Unavailable LUIS, V JE IT RISK AND ASSURANCE MANAGER Unavailable Unavailable LUIS, V JE IT RISK AND ASSURANCE MANAGER Unavailable Unavailable LUIS, V JE IT RISK AND ASSURANCE MANAGER Unavailable Unavailable LUIS, V JE IT RISK AND ASSURANCE MANAGER Unavailable Unavailable LUIS, V JE IT RISK AND ASSURANCE MANAGER Unavailable Unavailable LUIS, V EJ IT RISK AND ASSURANCE MANAGER Unavailable Unavailable LUIS, V JE IT RISK AND ASSURANCE MANAGER Unavailable Unavailable LUIS, V JE IT RISK AND ASSURANCE MANAGER Unavailable Unavailable LUIS, V JE IT RISK AND ASSURANCE MANAGER Unavailable Unavailable LUIS, V JE IT RISK AND ASSURANCE MANAGER Unavailable Unavailable LUIS, V JE IT RISK AND ASSURANCE MANAGER Unavailable Unavailable LUIS, V JE IT RISK AND ASSURANCE MANAGER Unavailable Unavailable LUIS, V JE IT RISK AND ASSURANCE MANAGER Unavailable Unavailable LUIS, V JE IT RISK AND ASSURANCE MANAGER Unavailable Unavailable LUIS, V JE IT RISK AND ASSURANCE MANAGER Unavailable Unavailable LUIS, V JE IT RISK AND ASSURANCE MANAGER Unavailable Unavailable LUIS, V JE IT RISK AND ASSURANCE MANAGER Unavailable Unavailable LUIS, V JE IT RISK AND ASSURANCE MANAGER Unavailable Unavailable LUIS, V JE IT RISK AND ASSURANCE MANAGER Unavailable Unavailable LUIS, V JE IT RISK AND ASSURANCE MANAGER Unavailable Unavailable LUIS, V JE IT RISK AND ASSURANCE MANAGER Unavailable Unavailable LUIS, V JE IT RISK AND ASSURANCE MANAGER Unavailable Unavailable LUIS, V JE IT RISK AND ASSURANCE MANAGER Unavailable Unavailable LUIS, V JE IT RISK AND ASSURANCE MANAGER Unavailable Unavailable LUIS, V JE IT RISK AND ASSURANCE MANAGER Unavailable Unavailable LUIS, V JE IT RISK AND ASSURANCE MANAGER Unavailable Unavailable LUIS, V JE IT RISK AND ASSURANCE MANAGER Unavailable Unavailable LUIS, V JE IT RISK AND ASSURANCE MANAGER Unavailable Unavailable LUIS, V JE IT RISK AND ASSURANCE MANAGER Unavailable Unavailable LUIS, V JE IT RISK AND ASSURANCE MANAGER Unavailable Unavailable LUIS, V JE IT RISK AND ASSURANCE MANAGER Unavailable Unavailable LUIS, V JE IT RISK AND ASSURANCE MANAGER Unavailable Unavailable LUIS, V JE IT RISK AND ASSURANCE MANAGER Unavailable Unavailable LUIS, V JE IT RISK AND ASSURANCE MANAGER Unavailable Unavailable LUIS, V JE IT RISK AND ASSURANCE MANAGER Unavailable Unavailable LUIS, V JE IT RISK AND ASSURANCE MANAGER Unavailable Unavailable LUIS, V JE IT RISK AND ASSURANCE MANAGER Unavailable Unavailable LUIS, V JE IT RISK AND ASSURANCE MANAGER Unavailable Unavailable LUIS, V JE IT RISK AND ASSURANCE MANAGER Unavailable Unavailable LUIS, V JE IT RISK AND ASSURANCE MANAGER Unavailable Unavailable LUIS, V JE IT RISK AND ASSURANCE MANAGER Unavailable Unavailable LUIS, V JE IT RISK AND ASSURANCE MANAGER Unavailable Unavailable LUIS, V JE IT RISK AND ASSURANCE MANAGER Unavailable Unavailable LUIS, V JE IT RISK AND ASSURANCE MANAGER Unavailable Unavailable LUIS, V JE IT RISK AND ASSURANCE MANAGER Unavailable Unavailable LUIS, V JE IT RISK AND ASSURANCE MANAGER Unavailable Unavailable LUIS, V JE IT RISK AND ASSURANCE MANAGER Unavailable Unavailable LUIS, V JE IT RISK AND ASSURANCE MANAGER Unavailable Unavailable LUIS, V JE IT RISK AND ASSURANCE MANAGER Unavailable Unavailable LUIS, V JE IT RISK AND ASSURANCE MANAGER Unavailable Unavailable LUIS, V JE IT RISK AND ASSURANCE MANAGER Unavailable Unavailable LUIS, V JE IT RISK AND ASSURANCE MANAGER Unavailable Unavailable Re-disclosure Warning The records that [...] is protected by Article 27-F of the [facility] Public Health law. If you continue you may have access to information: Regarding HIV / AIDS; Provided by facilities licensed or operated by the [facility] Office of Mental Health; or Provided by the [facility] Office for People With Developmental Disabilities. If such information is present, then the following [facility] mandated warning applies: This information has [...] law may result in a fine or custodial sentence or both. A general authorization for the release of medical or other information is NOT sufficient authorization for further disc losure. Family History Family Member Name Family Member Gender Family Member Status Date o f Status Description Data Source(s) Unknown Male Condition Family Member Prostate can cer [facility] Unknown Male Problem MEDENT ([facility] Unknown Unknown Problem MEDENT ([facility] Unknown Unknown Problem MEDENT ([facility]) Encounters Encounter Providers Location Date Indications Data Source(s ) [place] [address] [address] 11/04/2020 12:00:00 AM EST eCW1 (Critical access hospital) Outpatient Attender: Kaila Sanford MD Main office - [place] 11/03/2020 09:15:00 AM EST MEDENT ([facility]) Outpatient Attender: ABDON MENDOZA MD Main Office 11/02/2020 11:30:00 AM EST MEDENT ([facility]) [place] [address] [address] 11/02/2020 12:00:00 AM EST eCW1 ([facility]) [place] [address] [address] 10/28/2020 12:00:00 AM EST eCW1 ([facility]) [place] [address] [address] 10/27/2020 12:00:00 AM EST eCW1 ([facility]) [place] [address] [address] 10/26/2020 12:00:00 AM EST eCW1 ([facility]) [place] [address] [address] 10/25/2020 12:00:00 AM EST eCW1 ([facility]) [place] [address] [facility] [place] [address] 10/21/2020 12:00:00 AM EST eCW1 ([facility]) [place] [address] [address] 10/20/2020 12:00:00 AM EST eCW1 ([facility]) [place] [address] [address] 10/18/2020 12:00:00 AM EST eCW1 ([facility]) Preadmit Attender: Page PETERS 10/14/2020 02:00 :00 PM [facility] [place] [address] [address] 10/14/2020 12:00:00 AM EST eCW1 ([facility]) [place] [address] [facility] [place] [address] 10/07/2020 12:00:00 AM EST eCW1 ([facility]) [place] [address] [facility] [place] [address] 09/28/2020 12:00:00 AM EST eCW1 ([facility]) [place] [address] [address] 09/22/2020 12:00:00 AM EST eCW1 ([facility]) [place] [address] [address] 09/20/2020 12:00:00 AM EST eCW1 ([facility]) Outpatient [address] [address] 09/16/2020 12:00:00 AM EST eCW1 ([facility]) [place] [address] [address] 09/16/2020 12:00:00 AM EST eCW1 ([facility]) [place] [address] [address] 09/15/2020 12:00:00 AM EST eCW1 ([facility]) [place] [address] [address] 09/15/2020 12:00:00 AM EST eCW1 ([facility]) [place] [address] [address] 09/14/2020 12:00:00 AM EST eCW1 ([facility]) [place] [address] [address] 09/09/2020 12:00:00 AM EST eCW1 ([facility]) [place] [address] [address] 09/09/2020 12:00:00 AM EST eCW1 ([facility]) [place] [address] [address] 09/07/2020 12:00:00 AM EST eCW1 ([facility]) [place] [address] [address] 09/07/2020 12:00:00 AM EST eCW1 ([facility]) Outpatient [address] [address] 09/06/2020 12:00:00 AM EST eCW1 ([facility]) [place] [address] [address] 09/06/2020 12:00:00 AM EST eCW1 (Critical access hospital) [place] [address] [address] 08/31/2020 12:00:00 AM EDT eCW1 (Critical access hospital) [place]patient [address] [address] 08/25/2020 12:00:00 AM EDT eCW1 (Critical access hospital) [place] [address] [address] 08/17/2020 12:00:00 AM EDT eCW1 (Critical access hospital) [place] [address] [address] 08/10/2020 12:00:00 AM EDT eCW1 (Critical access hospital) [place]patient [address] [address] 08/04/2020 12:00:00 AM EDT eCW1 (Critical access hospital) ( in Healthcare facility) Attender: SAMEER MASTERSON MDAdmitter: LEFTY GARNETT MDConsultant: SANJU LOCK MD 06/14/2020 12:00:00 AM EDT - 06/16/2020 02:05:00 PM EDT [facility] Inpatient Attender: ALEXUS MASTERSON MDAt tender: ER PHYSICIANAdmitter: LEFTY GARNETT MD 06/13/2020 06:29:39 PM EDT [facility] Attender: ALEXUS MASTERSON MDAt tender: LEFTY GARNETT MDAttender: ER PHYSICIANAdmitter: LEFTY GARNETT MD 06/13/2020 05:46:0 0 PM EDT - 06/16/2020 02:05:00 PM EDT RECENT FALL UTI COPD EXACERABTION [facility] RECENT FALL UTI COPD EXACERABTION Patient discharged. Emergency Attender: ER PHYSICIAN 06/13/2020 05:46:00 PM E DT [facility] Outpatient Attender: Raya Gutierrez NPReferrer: JE Hernandez NP 01/16/2020 01:09:56 PM EDT [facility] Outpatient Attender: Raya Gutierrez NPReferrer: EJ Hernandez NP 11/12/2019 11:38:38 AM EST [facility] Emergency Attender: LEYDI CRISTINOAUGUST MDConsultant: ZORAIDA PINZON ES1-ES1 10/27/2019 12:56:08 AM EST - 10/27/2019 11:50:[address] [facility] Patient discharged. Outpatient Attender: Melvin Strickland MD [facility] 10/22/2019 02:00:00 PM EST MEDENT ([facility]) Outpatient Attender: JE MEZA NP 10/01/2019 01:13:57 PM EST [facility] Outpatient Attender: JE MEZA NP 09/30/2019 01:54:30 PM EST [facility] Outpatient Attender: JE MEZA NP 09/30/2019 01:54:30 PM EST [facility] Outpatient Attender: JE MEZA NP 09/30/2019 01:54:30 PM EST [facility] Outpatient Attender: JE MEZA NP 09/30/2019 01:54:30 PM EST [facility] Outpatient Attender: JE MEZA NP 09/30/2019 01:54:30 PM EST [facility] Outpatient Attender: JE MEZA NP 09/30/2019 12:35:21 PM EST [facility] Inpatient Attender: Froilan Wang MDA [...] 12:00:00 AM EST ORAL active M EDENT ([facility]) 25-100 mg 11/03/2020 12:00:00 AM [...] - eCW1 ([facility]) Ascorbic Acid 226 MG / Beta Carotene 143 20 UNT / cuprous oxide 0.8 MG / dl-alpha tocopheryl acetate 200 UNT / Zinc Oxide 34.8 MG Oral Capsule [PreserVision] PreserVision AREDS - PreserVision AREDS - 11/02/2020 12:00:00 AM EST active PreserVision AREDS - eCW1 ([facility]) Rosuvastatin calcium 40 MG Oral [...] EST ORAL active M EDENT ([facility]) Bisoprolol Fumarate 5 MG Oral Tablet Bisoprolol Fumarate 12:00:00 AM EST ORAL active MEDENT ([facility]) Rosuvastatin calcium 40 MG Oral Tablet Rosuvastatin Calcium 11/02/2020 12:00:00 AM EST ORAL active [facility] ([facility]) L-Methylfolate Calcium 11/01/2020 12:00:00 AM EST active MEDENT ([facility]) Carbidopa 25 MG / Levodopa 100 MG Oral Tablet Carbidopa-Levo dopa 11/01/2020 12:00:00 AM EST ORAL active M EDENT ([facility]) 500 mcg 11/01/2020 12:00:00 AM EST tablet [...] EST ORAL active MEDENT ([facility]) Vitamin B 12 0.5 MG Oral Tablet Vitamin B12 10/04/2020 12:00:00 AM EST ORAL active MEDENT ([facility]) 200 ACTUAT Albuterol 0.09 MG/ACTUAT Metered Dose Inhal er [Ventolin] Ventolin HFA 10/04/2020 12:00:00 AM EST RESPIRATORY active MEDENT ([facility]) 12 HR Bupropion Hydrochloride 100 MG Extended Release Oral Tablet [Wellbutrin] Wellbutrin SR 10/04/2020 12:00:00 AM EST ORAL active MEDENT ([facility]) sacubitril 24 MG / valsartan 26 MG Oral Tablet [Entresto] En tresto 10/04/2020 12:00:00 AM EST ORAL completed MEDENT ([facility]) 0.3 ML Epinephrine 1 MG/ML Auto-Injector [Epipen] Epipen 2-P ak 10/04/2020 12:00:00 AM EST active M EDENT ([facility]) gabapentin 300 MG Oral Capsule Gabapentin 10/04/2020 12:00:00 AM EST ORAL active MEDENT ([facility]) Omeprazole 40 MG Delayed Release Oral Capsule Omeprazole 10/04/2020 12:00:00 AM EST ORAL active MEDENT ([facility]) Nitroglycerin 0.4 MG Sublingual Tablet Nitroglycerin 0 12:00:00 AM EST SUBLINGUAL active MEDEN T ([facility]) Potassium Chloride 20 MEQ Extended Release Oral Tablet Potas sium Chloride ER 10/04/2020 12:00:00 AM EST ORAL completed [facility] ([facility]) Preservision Areds 2 10/04/2020 12:00:00 AM EST ORAL active [facility] ([facility]) torsemide 20 MG Oral Tablet Torsemide 10/04/2020 12:00:00 AM EST ORAL active [facility] ([facility]) Calcium Carbonate 500 MG Chewable Tablet [Tums] Tums 10/04/2020 12:00:00 AM EST ORAL active [facility] ( [facility]) Sertraline 100 MG Oral Tablet Sertraline HCL 10/04/2020 12:00:[address] ORAL active [facility] ([facility]) Clonazepam 0.5 MG Oral Tablet Clonazepam 10/04/2020 12:00:00 AM EST ORAL active [facility] ([facility]) Ergocalciferol 44219 UNT Oral Capsule Vitamin D (Ergocalcife rol) 10/04/2020 12:00:00 AM EST ORAL active M EDENT ([facility]) Aspirin 81 MG Delayed Release Oral Tablet Aspirin 10/04/2020 1 2:00:00 AM EST ORAL active [facility] ([facility]) Digoxin 0.125 MG Oral Tablet [Digox] Digox 10/04/2020 12:00:00 AM EST ORAL completed [facility] ([facility]) Digoxin 0.125 MG Oral Tablet 125 mcg [...] {tablet} active Ci pro 500 MG eCW1 ([facility]) Ciprofloxacin 500 MG Oral Tablet [Cipro] Cipro 500 MG Cipro 500 MG 09/09/2020 12:00:00 AM EST 1.0 {tablet} suspended Cipro 500 MG eCW1 ([facility]) Ciprofloxacin 500 MG Oral Tablet [Cipro] Cipro 500 MG Cipro 500 MG 09/09/2020 12:00:00 AM EST 1.0 {tablet} active Ci pro 500 MG eCW1 ([facility]) Ciprofloxacin 500 MG Oral Tablet [Cipro] Cipro 500 MG Cipro 500 MG 09/09/2020 12:00:00 AM EST 1.0 {tablet} suspended Cipro 500 MG eCW1 ([facility]) Ciprofloxacin 500 MG Oral Tablet [Cipro] Cipro 500 MG Cipro 500 MG 09/09/2020 12:00:00 AM EST 1.0 {tablet} active Ci pro 500 MG eCW1 ([facility]) Ciprofloxacin 500 MG Oral Tablet [Cipro] Cipro 500 MG Cipro 500 MG 09/09/2020 12:00:00 AM EST 1.0 {tablet} suspended Cipro 500 MG eCW1 ([facility]) Ciprofloxacin 500 MG Oral Tablet [Cipro] Cipro 500 MG Cipro 500 MG 09/09/2020 12:00:00 AM EST 1.0 {tablet} suspended Cipro 500 MG eCW1 ([facility]) Ciprofloxacin 500 MG Oral Tablet [Cipro] Cipro 500 MG Cipro 500 MG 09/09/2020 12:00:00 AM EST 1.0 {tablet} suspended Cipro 500 MG eCW1 ([facility]) Ciprofloxacin 500 MG Oral Tablet [Cipro] Cipro 500 MG Cipro 500 MG 09/09/2020 12:00:00 AM EST 1.0 {tablet} active Ci pro 500 MG eCW1 ([facility]) Ciprofloxacin 500 MG Oral Tablet [Cipro] Cipro 500 MG Cipro 500 MG 09/09/2020 12:00:00 AM EST 1.0 {tablet} active Ci pro 500 MG eCW1 ([facility]) Ciprofloxacin 500 MG Oral Tablet [Cipro] Cipro 500 MG Cipro 500 MG 09/09/2020 12:00:00 AM EST 1.0 {tablet} active Ci pro 500 MG eCW1 ([facility]) Ciprofloxacin 250 MG Oral Tablet [Cipro] Cipro 250 MG Cipro 250 MG 09/06/2020 12:00:00 AM EST 1.0 {tablet} suspended Cipro 250 MG eCW1 ([facility]) Ciprofloxacin 250 MG Oral Tablet [Cipro] Cipro 250 MG Cipro 250 MG 09/06/2020 12:00:00 AM EST 1.0 {tablet} active Ci pro 250 MG eCW1 ([facility]) Ciprofloxacin 250 MG Oral Tablet [Cipro] Cipro 250 MG Cipro 250 MG 09/06/2020 12:00:00 AM EST 1.0 {tablet} active Ci pro 250 MG eCW1 ([facility]) Ciprofloxacin 250 MG Oral Tablet [Cipro] Cipro 250 MG Cipro 250 MG 09/06/2020 12:00:00 AM EST 1.0 {tablet} active Ci pro 250 MG eCW1 ([facility]) Ciprofloxacin 250 MG Oral Tablet [Cipro] Cipro 250 MG Cipro 250 MG 09/06/2020 12:00:00 AM EST 1.0 {tablet} suspended Cipro 250 MG eCW1 ([facility]) 250 mg 09/06/2020 12:00:00 AM EST tablet 10 TAKE ONE TABLET BY MOUTH EVERY 12 HOURS TAKE ONE TABLET BY MOUTH EVERY 12 HOURS SOLD: 09/06/2020 [facility] Ciprofloxacin 250 MG Oral Tablet [Cipro] Cipro 250 MG Cipro 250 MG 09/06/2020 12:00:00 AM EST 1.0 {tablet} active Ci pro 250 MG eCW1 ([facility]) Ciprofloxacin 250 MG Oral Tablet [Cipro] Cipro 250 MG Cipro 250 MG 09/06/2020 12:00:00 AM EST 1.0 {tablet} active Ci pro 250 MG eCW1 ([facility]) Ciprofloxacin 250 MG Oral Tablet [Cipro] Cipro 250 MG Cipro 250 MG 09/06/2020 12:00:00 AM EST 1.0 {tablet} suspended Cipro 250 MG eCW1 ([facility]) Ciprofloxacin 250 MG Oral Tablet [Cipro] Cipro 250 MG Cipro 250 MG 09/06/2020 12:00:00 AM EST 1.0 {tablet} active Ci pro 250 MG eCW1 ([facility]) Ciprofloxacin 250 MG Oral Tablet [Cipro] Cipro 250 MG Cipro 250 MG 09/06/2020 12:00:00 AM EST 1.0 {tablet} active Ci pro 250 MG eCW1 ([facility]) Ciprofloxacin 250 MG Oral Tablet [Cipro] Cipro 250 MG Cipro 250 MG 09/06/2020 12:00:00 AM EST 1.0 {tablet} suspended Cipro 250 MG eCW1 ([facility]) Ciprofloxacin 250 MG Oral Tablet [Cipro] Cipro 250 MG Cipro 250 MG 09/06/2020 12:00:00 AM EST 1.0 {tablet} suspended Cipro 250 MG eCW1 ([facility]) Ciprofloxacin 250 MG Oral Tablet [Cipro] Cipro 250 MG Cipro 250 MG 09/06/2020 12:00:00 AM EST 1.0 {tablet} active Ci pro 250 MG eCW1 ([facility]) Ciprofloxacin 250 MG Oral Tablet [Cipro] Cipro 250 MG Cipro 250 MG 09/06/2020 12:00:00 AM EST 1.0 {tablet} active Ci pro 250 MG eCW1 ([facility]) Rosuvastatin calcium 10 MG Oral Tablet [Crestor] Crestor 10 MG Crestor 10 MG 08/25/2020 12:00:00 AM EDT 1.0 {tablet} active Crestor 10 MG eCW1 ([facility]) Rosuvastatin calcium 10 MG Oral Tablet [Crestor] Crestor 10 MG Crestor 10 MG 08/25/2020 12:00:00 AM EDT 1.0 {tablet} active Crestor 10 MG eCW1 ([facility]) Rosuvastatin calcium 10 MG Oral Tablet [Crestor] Crestor 10 MG Crestor 10 MG 08/25/2020 12:00:00 AM EDT 1.0 {tablet} active Crestor 10 MG eCW1 ([facility]) Rosuvastatin calcium 10 MG Oral Tablet [Crestor] Crestor 10 MG Crestor 10 MG 08/25/2020 12:00:00 AM EDT 1.0 {tablet} active Crestor 10 MG eCW1 ([facility]) Rosuvastatin calcium 10 MG Oral Tablet [Crestor] Crestor 10 MG Crestor 10 MG 08/25/2020 12:00:00 AM EDT 1.0 {tablet} active Crestor 10 MG eCW1 ([facility]) Rosuvastatin calcium 10 MG Oral Tablet [Crestor] Crestor 10 MG Crestor 10 MG 08/25/2020 12:00:00 AM EDT 1.0 {tablet} active Crestor 10 MG eCW1 ([facility]) Rosuvastatin calcium 10 MG Oral Tablet [Crestor] Crestor 10 MG Crestor 10 MG 08/25/2020 12:00:00 AM EDT 1.0 {tablet} active Crestor 10 MG eCW1 ([facility]) Rosuvastatin calcium 10 MG Oral Tablet [Crestor] Crestor 10 MG Crestor 10 MG 08/25/2020 12:00:00 AM EDT 1.0 {tablet} active Crestor 10 MG eCW1 ([facility]) Rosuvastatin calcium 10 MG Oral Tablet [Crestor] Crestor 10 MG Crestor 10 MG 08/25/2020 12:00:00 AM EDT 1.0 {tablet} active Crestor 10 MG eCW1 ([facility]) Rosuvastatin calcium 10 MG Oral Tablet [Crestor] Crestor 10 MG Crestor 10 MG 08/25/2020 12:00:00 AM EDT 1.0 {tablet} active Crestor 10 MG eCW1 ([facility]) Rosuvastatin calcium 10 MG Oral Tablet [Crestor] Crestor 10 MG Crestor 10 MG 08/25/2020 12:00:00 AM EDT 1.0 {tablet} active Crestor 10 MG eCW1 ([facility]) Rosuvastatin calcium 10 MG Oral Tablet [Crestor] Crestor 10 MG Crestor 10 MG 08/25/2020 12:00:00 AM EDT 1.0 {tablet} active Crestor 10 MG eCW1 ([facility]) Rosuvastatin calcium 10 MG Oral Tablet [Crestor] Crestor 10 MG Crestor 10 MG 08/25/2020 12:00:00 AM EDT 1.0 {tablet} active Crestor 10 MG eCW1 ([facility]) Rosuvastatin calcium 10 MG Oral Tablet [Crestor] Crestor 10 MG Crestor 10 MG 08/25/2020 12:00:00 AM EDT 1.0 {tablet} active Crestor 10 MG eCW1 ([facility]) Rosuvastatin calcium 10 MG Oral Tablet [Crestor] Crestor 10 MG Crestor 10 MG 08/25/2020 12:00:00 AM EDT 1.0 {tablet} active Crestor 10 MG eCW1 ([facility]) Rosuvastatin calcium 10 MG Oral Tablet [Crestor] Crestor 10 MG Crestor 10 MG 08/25/2020 12:00:00 AM EDT 1.0 {tablet} active Crestor 10 MG eCW1 ([facility]) Rosuvastatin calcium 10 MG Oral Tablet [Crestor] Crestor 10 MG Crestor 10 MG 08/25/2020 12:00:00 AM EDT 1.0 {tablet} active Crestor 10 MG eCW1 ([facility]) Rosuvastatin calcium 10 MG Oral Tablet [Crestor] Crestor 10 MG Crestor 10 MG 08/25/2020 12:00:00 AM EDT 1.0 {tablet} active Crestor 10 MG eCW1 ([facility]) Rosuvastatin calcium 10 MG Oral Tablet [Crestor] Crestor 10 MG Crestor 10 MG 08/25/2020 12:00:00 AM EDT 1.0 {tablet} active Crestor 10 MG eCW1 ([facility]) Rosuvastatin calcium 10 MG Oral Tablet [Crestor] Crestor 10 MG Crestor 10 MG 08/25/2020 12:00:00 AM EDT 1.0 {tablet} active Crestor 10 MG eCW1 ([facility]) Rosuvastatin calcium 10 MG Oral Tablet [Crestor] Crestor 10 MG Crestor 10 MG 08/25/2020 12:00:00 AM EDT 1.0 {tablet} active Crestor 10 MG eCW1 ([facility]) Rosuvastatin calcium 10 MG Oral Tablet [Crestor] Crestor 10 MG Crestor 10 MG 08/25/2020 12:00:00 AM EDT 1.0 {tablet} active Crestor 10 MG eCW1 ([facility]) Rosuvastatin calcium 10 MG Oral Tablet [Crestor] Crestor 10 MG Crestor 10 MG 08/25/2020 12:00:00 AM EDT 1.0 {tablet} active Crestor 10 MG eCW1 ([facility]) Rosuvastatin calcium 10 MG Oral Tablet [Crestor] Crestor 10 MG Crestor 10 MG 08/25/2020 12:00:00 AM EDT 1.0 {tablet} active Crestor 10 MG eCW1 ([facility]) Rosuvastatin calcium 10 MG Oral Tablet [Crestor] Crestor 10 MG Crestor 10 MG 08/25/2020 12:00:00 AM EDT 1.0 {tablet} active Crestor 10 MG eCW1 ([facility]) Rosuvastatin calcium 10 MG Oral Tablet [Crestor] Crestor 10 MG Crestor 10 MG 08/25/2020 12:00:00 AM EDT 1.0 {tablet} active Crestor 10 MG eCW1 ([facility]) Rosuvastatin calcium 10 MG Oral Tablet [Crestor] Crestor 10 MG Crestor 10 MG 08/25/2020 12:00:00 AM EDT 1.0 {tablet} active Crestor 10 MG eCW1 ([facility]) Oxygen UNK 08/04/2020 12:00:00 AM EDT active Oxygen eCW1 ([facility]) Oxygen UNK 08/04/2020 12:00:00 AM EDT active Oxygen eCW1 ([facility]) Oxygen UNK 08/04/2020 12:00:00 AM EDT active Oxygen eCW1 ([facility]) Oxygen UNK 08/04/2020 12:00:00 AM EDT active Oxygen eCW1 ([facility]) Oxygen UNK 08/04/2020 12:00:00 AM EDT active Oxygen eCW1 ([facility]) Oxygen UNK 08/04/2020 12:00:00 AM EDT active Oxygen eCW1 ([facility]) Oxygen UNK 08/04/2020 12:00:00 AM EDT active Oxygen eCW1 ([facility]) Oxygen UNK 08/04/2020 12:00:00 AM EDT active Oxygen eCW1 ([facility]) Oxygen UNK 08/04/2020 12:00:00 AM EDT active Oxygen eCW1 ([facility]) Oxygen UNK 08/04/2020 12:00:00 AM EDT active Oxygen eCW1 ([facility]) Oxygen UNK 08/04/2020 12:00:00 AM EDT active Oxygen eCW1 ([facility]) Oxygen UNK 08/04/2020 12:00:00 AM EDT active Oxygen eCW1 ([facility]) Oxygen UNK 08/04/2020 12:00:00 AM EDT active Oxygen eCW1 ([facility]) Oxygen UNK 08/04/2020 12:00:00 AM EDT active Oxygen eCW1 ([facility]) Oxygen UNK 08/04/2020 12:00:00 AM EDT active Oxygen eCW1 ([facility]) Oxygen UNK 08/04/2020 12:00:00 AM EDT active Oxygen eCW1 ([facility]) Oxygen UNK 08/04/2020 12:00:00 AM EDT active Oxygen eCW1 ([facility]) Oxygen UNK 08/04/2020 12:00:00 AM EDT active Oxygen eCW1 ([facility]) Oxygen UNK 08/04/2020 12:00:00 AM EDT active Oxygen eCW1 ([facility]) Oxygen UNK 08/04/2020 12:00:00 AM EDT active Oxygen eCW1 ([facility]) Oxygen UNK 08/04/2020 12:00:00 AM EDT active Oxygen eCW1 ([facility]) Oxygen UNK 08/04/2020 12:00:00 AM EDT active Oxygen eCW1 ([facility]) Oxygen UNK 08/04/2020 12:00:00 AM EDT active Oxygen eCW1 ([facility]) Oxygen UNK 08/04/2020 12:00:00 AM EDT active Oxygen eCW1 ([facility]) Oxygen UNK 08/04/2020 12:00:00 AM EDT active Oxygen eCW1 ([facility]) Oxygen UNK 08/04/2020 12:00:00 AM EDT active Oxygen eCW1 ([facility]) Oxygen UNK 08/04/2020 12:00:00 AM EDT active Oxygen eCW1 ([facility]) Oxygen UNK 08/04/2020 12:00:00 AM EDT active Oxygen eCW1 ([facility]) Oxygen UNK 08/04/2020 12:00:00 AM EDT active Oxygen eCW1 ([facility]) Oxygen UNK 08/04/2020 12:00:00 AM EDT active Oxygen eCW1 ([facility]) Morphine Sulfate (PF) injection 2 mg [id number] 10/27/2019 05:30: 00 AM EST 2 mg Intravenous completed 2 mg, In travenous, Once, 10/27/19 at 0530, For [address] [facility] Medication administered onsite Cyclobenzaprine hydrochloride 10 MG Oral Tablet cyclobenzaprine (FLEXERIL) 10 MG tablet cyclobenzaprine (FLEXERIL) 10 MG tablet 08/07/2018 12:00:00 AM E DT 10 mg Oral aborted Take 1 tab let (10 mg total) by mouth 3 (three) times a day as needed for muscle spasms [facility] duloxetine 60 MG Delayed Release Oral Ca psule DULoxetine (CYMBALTA) 60 MG capsule DULoxetine (CYMBALTA) 60 MG capsule 60 mg Oral aborted Take 60 mg by mouth every evening [facility] carvedilol 3.125 MG Oral Tablet carvedilol (COREG) 3.1 25 MG tablet carvedilol (COREG) 3.125 MG tablet 3.125 mg Oral aborted Take 3.125 mg by mouth 2 (two) times a day [facility] ferrous gluconate 324 MG Oral Tablet ferrous gluconate (FERGON) 324 MG tablet ferrous gluconate (FERGON) 324 MG tablet 324 mg Oral aborted Take 324 mg [address] mouth daily [facility] Vancomycin HCl 50 MG/ML SOLR 24688 125 mg Oral ab orted Take 125 mg by mouth 3 times weekly on Sunday, Sunday, and Sunday for 4 weeks (07/22/18 - 09/16/18) [facility] Famotidine 20 MG Oral Tablet famotidine (PEPCID) 20 MG tablet famotidine (PEPCID) 20 MG tablet 20 mg Oral aborted Take 20 mg by mouth daily as needed for heartburn [facility] 60 ACTUAT Budesonide 0.16 MG/ACTUAT / fo rmoterol fumarate 0.0045 MG/ACTUAT Metered Dose Inhaler budesonide-formoterol (SYMBICORT) 160-4.5 MCG/ACT inhaler budesonide-formoterol (SYMBICORT) 160-4.5 MCG/ACT inhaler 2 {puff} Inhalation aborted Inhale 2 puffs 2 (t wo) times a day [facility] Calcium Carbonate 550 MG / Magnesium Hyd roxide 110 MG Chewable Tablet Ca Carbonate-Mag Hydroxide (ROLAIDS) 550-110 MG CHEW Ca Carbonate-Mag Hydroxide (ROLAIDS) 550-110 MG CHEW Oral aborted Chew 1-2 tablets 2 (two) times a day as needed (for indigestion/heartburn) [facility] K-Jbmtnfvyoojn-Lkeqy (DEPLIN 7.5 PO) 1 {tbl} Oral aborted Take 1 tablet by mouth daily [facility] 1 ML Vitamin B 12 1 MG/ML Prefilled Syri nge cyanocobalamin 1000 MCG/ML injection cyanocobalamin 1000 MCG/ML injection 500 ug Intramuscular aborted Inject 500 mcg into the shoulder, thigh, or buttocks every 30 (thirty) days [facility] Acetaminophen 325 MG / Hydrocodone Marko trate 5 MG Oral Tablet HYDROcodone- acetaminophen (NORCO) 5-325 MG per tablet HYDROcodone-acetaminophen (NORCO) 5- 325 MG per tablet 1 {tbl} Oral aborted Take 1 tablet by mouth 3 (three) times a day [facility] Acetaminophen 325 MG / Hydrocodone Marko trate 5 MG Oral Tablet HYDROcodone- acetaminophen (NORCO) 5-325 MG per tablet HYDROcodone-acetaminophen (NORCO) 5- 325 MG per tablet 1 {tbl} Oral aborted Take 1 tablet by mouth daily as needed for pain [facility] MELATONIN PO Oral aborted Take by m outh [facility] 24 HR Nicotine 0.292 MG/HR Transdermal Patch nicotine (NICODERM CQ) 7 MG/24HR nicotine (NICODERM CQ) 7 MG/24HR 1 {patch} Transdermal aborted Place 1 patch on the skin daily [facility] Clonazepam 0.5 MG Oral Tablet clonazePAM (KLONOPIN) 0. 5 MG tablet clonazePAM (KLONOPIN) 0.5 MG tablet 0.5 mg Oral aborted Take 0.5 mg by mouth 2 (two) times a day as needed for anxiety [facility] Clonazepam 0.5 MG Oral Tablet clonazePAM (KLONOPIN) 0. 5 MG tablet clonazePAM (KLONOPIN) 0.5 MG tablet 0.5 mg Oral aborted Take 0.5 mg by mouth 3 (three) times a day [facility] Insurance Providers Payer name Policy type / Coverage type Policy ID Covered democrat ID Covered democrat's relationship to gomez Policy Gomez Plan Information MEDICARE [id number] SP [id number] [id number] EMEDNY [id number] SP [id number] MEDICAID M [id number] S [id number] MEDICARE C [id number] S [id number] U10 MEDICAID [id number] S [id number] [place]ISION [id number] S [id number] [place]ICARE - [place] [id number] S [id number] MEDICARE [id number] SP [id number] A O UNAVAILABLE UNAVAILA BLE MEDICARE HEALTH MAINTENANCE ORGANIZATION HEA [id number] S [id number] MEDICAID GME [id number] MEDICAID HEALTH MAINTENANCE ORGANIZATION HEA [id number] S [id number] MEDICARE HE [id number] S [id number] [id number] MEDICARE HEALTH MAINTENANCE ORGANIZATION HEA [id number] S [id number] MEDICARE HEALTH MAINTENANCE ORGANIZATION HEA "" S "" MEDICARE MCA [id number] S [id number] U10 MEDICARE MCA [id number] S [id number] U10 PACE CN[place] [id number] Ivelisse [id number] MEDICAID [id number] PACE CN[place] [id number] MEDICAID [id number] Ivelisse [id number] MEDICARE [id number] Ivelisse [id number] Medicaid [facility] Healthcare S D [id number] SELF [id number] PACE Medicare N [id number] SELF [id number] Pace Commercial [id number] Self [id number] MEDICARE PI PI MEDICAID PI PI Pace CNY Commercial [id number] Self [id number] PACE Medicare N [id number] SELF [id number] PACE Medicare N [id number] SELF [id number] Pace Commercial [id number] Self [id number] Medicare C [id number] SELF [id number] [id number] PACE CNY PI PI PACE CNY [id number] Ivelisse [id number] WELLCARE MEDICARE [id number] Ivelisse [id number] WELLCARE MEDICARE [id number] Ivelisse [id number] UNAVAILABLE UNAVAILA BLE MEDICAID HEA [id number] S [id number] MEDICARE HEALTH MAINTENANCE ORGANIZATION HEA [id number] S [id number] [place] Medig[place] Part B [id number] Self [id number] Pace Medigap Part B [id number] Self [id number] Medicare [facility] Medicare Primary [id number] Self [id number] MEDICARE HEALTH MAINTENANCE ORGANIZATION HEA UNAVAILABLE S UNA[place]ABLE [place] Medigap Part B [id number] Self [id number] Pace Medigap Part B [id number] Self [id number] Medicare [facility] Medicare Primary [id number] Self [id number] 18 [id number] Medicaid [id number] Medicare [facility] [id number] 18 [id number] WELLCARE MEDICARE [id number] Ivelisse [id number] Vna Homecare Options [facility] Medigap Part B Self [place] Self MEDICAID W [id number] S [id number] MEDICARE M [id number] S [id number] A WELLCARE MEDICAID DUAL I [id number] Self [id number] WELLCARE MEDICARE HMO G [id number] Self [id number] MEDICARE M [id number] S [id number] MEDICAID W [id number] S [id number] O CENTRAL O [id number] S [id number] WELLCARE MEDICAID DUAL I [id number] Self [id number] MEDICAID M [id number] Self [id number] MEDICAID MANAGED CARE GENERIC I [id number] Self [id number] MEDICARE HE O [id number] S [id number] [facility] MCARE COMPLETE O [id number] S [id number] MEDICAID GME W [id number] S [id number] MEDICAID W [id number] S [id number] [facility] MEDICARE COMPLET O [id number] S [id number] MEDICAID REF AMBULAT W [id number] S [id number] Self [id number] Self [id number] Problems, Conditions, and Diagnoses Code Display Name Description Problem Type Effective Dates Data Source(s) 411999355 Low back pain Low back pain Problem 11/03/2020 12:00:00 AM EST [facility] ([facility] ) [id number] Spondylolysis Spondylolysis Problem 11/03/2020 12:00:00 AM EST [facility] ([facility] ) 043223649 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 Problem 11/03/2020 12:00:00 AM EST [facility] ([facility] ) 71815329 Neck pain Neck pain Problem 11/03/2020 12:00:00 AM ES T MED[facility] ([facility] ) 89369451 Parkinson's disease Parkinson's disease Problem 1 12:00:00 AM EST EMMANUELLE ([facility] ) H35.30 [id number] Macular degeneration, unspecifie d laterality, unspecified type Problem 08/25/2020 12:00:00 AM EDT eCW1 ([facility]) K21.9 [id number] Gastroesophageal ref lux disease, esophagitis presence not specified Problem 08/04/2020 12:00:00 AM EDT eCW1 ([facility]) J44.9 59404652 Chronic obstructive pulmonary di sease, unspecified COPD type Problem 08/04/2020 12:00:00 AM EDT eCW1 ([facility]) I48.91 00386232 Atrial fibrillation, unspecified type Pro blem 08/04/2020 12:00:00 AM EDT eCW1 ([facility]) G70.00 05607806 Myasthenia gravis Problem 08/04/2020 12:00:0 0 AM EDT eCW1 ([facility]) F41.8 [id number] Depression with anxiety Problem 08/04/2020 1 2:00:00 AM EDT eCW1 ([facility]) 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, unspecified vessel or lesion type Problem 08/04/2020 12:00 :00 AM EDT eCW1 ([facility]) Z86.73 History of TIA (transient ischemic attac k) History of TIA (transient ischemic attack) 18402036 10/27/2019 12:00:00 AM [facility] R29.6 Frequent falls Frequent falls 57890753 10/27/2019 12:00: 00 AM [facility] G62.9 Peripheral neuropathy Peripheral neuropathy 69990062 10/27/2019 12:00:00 AM [facility] N18.3 Stage 3 chronic kidney disease Stage 3 chronic kidney disease 38664361 10/27/2019 12:00:00 AM [facility] M79.7 Fibromyalgia Fibromyalgia 37225871 10/27/2019 12:00:00 A M [facility] E11.9 Type 2 diabetes mellitus without complic ation Type 2 diabetes mellitus without complication 22632318 10/27/2019 12:00:00 AM [facility] R60.9 Edema, unspecified EDEMA, UNSPECIFIED Diagnosis 08/2020 02:00:00 PM [facility] S70.01XA Contusion of right hip, initial encounte r Contusion of right hip, initial encounte Diagnosis 10/27/2019 12:56:08 AM [facility] R53.1 Weakness Weakness Diagnosis 10/27/2019 12:56:[address] [facility] R42 Dizziness and giddiness Dizziness and giddiness Diagno sis 10/27/2019 12:56:08 AM [facility] R29.6 Repeated falls Repeated falls Diagnosis 10/27/2019 12:56: 08 AM [facility] Surgeries/Procedures Procedure Description Date Indications Data Source(s) FALLS RISK ASSESSMENT DOCUMENTED 11/03/2020 12:00:00 A M VIJI HANDLEY ([facility]) ECG ROUTINE ECG W/LEAST 12 LDS W/I&R 11/02/2020 12:00: 00 AM EST [facility] ([facility]) Icm - Interrogation In Person 07/06/2020 12:00:00 AM E DT [facility] ([facility]) Electrocardiogram Interpretation & Report Only 020 12:00:00 AM EDT MED[facility] ([facility]) Icm - Interrogation In Person 06/01/2020 12:00:00 AM E DT [facility] ([facility]) Icd Interrogation (Remote) internet 05/24/2020 12:00:0 0 AM EDT [facility] ([facility]) Icd/PM Remote Data Acquisition 05/24/2020 12:00:00 AM EDT [facility] ([facility]) Icm - Interrogation In Person 04/27/2020 12:00:00 AM E DT [facility] ([facility]) Icm - Interrogation In Person 03/23/2020 12:00:00 AM E DT [facility] ([facility]) Icd Interrogation (Remote) internet 02/23/2020 12:00:0 0 AM EDT [facility] ([facility]) Icd/PM Remote Data Acquisition 02/23/2020 12:00:00 AM EDT [facility] ([facility]) Icm - Interrogation In Person 02/10/2020 12:00:00 AM E DT [facility] ([facility]) Icm - Interrogation In Person 01/06/2020 12:00:[address] [facility] ([facility]) Icm - Interrogation In Person 12/02/2019 12:00:[address] [facility] ([facility]) Icd Interrogation (Remote) internet 11/24/2019 12:00:0 0 AM EST [facility] ([facility]) Icd/PM Remote Data Acquisition 11/24/2019 12:00:00 AM EST [facility] ([facility]) Icm - Interrogation In Person 10/28/2019 12:00:[address] [facility] [facility] Icm/Loop System Remote Data Acquistion 10/28/2019 12:0 0:00 AM EST MEDENT ([facility]) URNLS DIP STICK/TABLET RGNT AUTO W/O MICROSCOPY URINALYSIS W/O MICRO STAT 10/27/2019 4:57 AM EST 10/27/2019 09:57:[address] [facility] POC BASIC METABOLIC PANEL POC BASIC METABOLIC PANEL Routine 10/27/2019 3:34 AM EST 10/27/2019 08:34:00 AM [facility] TROPONIN QUANTITATIVE TROPONIN I STAT 10/27/2019 3:28 AM EST 10/27/2019 08:28:[address] [facility] BLOOD COUNT COMPLETE AUTO&AUTO DIFRNTL WBC COUNT CBC AND DIFFER ENTIAL STAT 10/27/2019 3:28 AM EST 10/27/2019 08:28:[address] [facility] THYROID STIMULATING HORMONE TSH TSH STAT 10/27/2019 3:28 AM EST 10/27/2019 08:28:[address] [facility] CREATINE KINASE TOTAL CK STAT 10/27/2019 3:28 AM EST 10/27/2019 08:28:[address] [facility] HEPATIC FUNCTION PANEL HEPATIC FUNCTION PANEL STAT 10/27/2019 3 :28 AM EST 10/27/2019 08:28:00 AM EST [facility] ECG ROUTINE ECG W/LEAST 12 LDS TRCG ONLY W/O I&R ECG 12-LEAD STAT 10/27/2019 3:16 AM EST 10/27/2019 08:16:00 AM [facility] XR HIP COMPLETE RIGHT XR HIP COMPLETE RIGHT STAT 10/27/2019 3 :09 AM EST 10/27/2019 08:09:49 AM [facility] HEAD/BRAIN W/O CONTRAST MATERIAL CT HEAD WO CONTRAST STAT 10/27/2019 2:53 AM EST 10/27/2019 07:53:47 AM [facility] Electrocardiogram Complete 10/22/2019 12:00:00 AM EST MED[facility] ([facility]) Icm - Interrogation In Person 09/23/2019 12:00:[address] [facility] ([facility]) Icm - Interrogation In Person 09/23/2019 12:00:[address] [facility] ([facility]) Icm/Loop System Remote Data Acquistion 09/23/2019 12:0 0:00 AM EST MED[facility] ([facility]) Results ID Date Data Source [id number] 10/06/2020 09:22:00 AM EST [facility] ([facility]) Name Value Range Interpretation Code Description Data Elvie rce(s) Supporting Document(s) White Blood Count 7.0 4.0-10.0 [facility] ([facility]) Red Blood Count 2.98 4.00-5.40 [facility] ([facility]io [facility]) Platelets 197 172-450 [facility] ([facility]) Hemoglobin 9.1 [facility] ([facility]) Hematocrit 29.5 [facility] ([facility]) ID Date Data Source [id number] 10/06/2020 09:22:00 AM EST [facility] ([facility]) Name Value Range Interpretation Code Description Data Elvie rce(s) Supporting Document(s) Albumin [Mass/volume] in Serum or Plasma 2.8 [facility] ([facility]) Calcium [Mass/volume] in Serum or Plasma 8.9 [facility] ([facility]) Carbon dioxide, total [Moles/volume] in Serum or Plasma 35 [facility] ([facility]) Alanine aminotransferase [Enzymatic activity/volume] in Serum or Pl asma 6 [facility] ([facility]) Chloride [Moles/volume] in Serum or Plasma 103 MED[facility] ([facility]) Potassium [Moles/volume] in Serum or Plasma 4.7 [facility] ([facility]) Protein [Mass/volume] in Serum or Plasma 6.2 [facility] ([facility]) Alkaline phosphatase [Enzymatic activity/volume] in Serum or Plasma 8 3 [facility] ([facility]) Urea nitrogen [Mass/volume] in Serum or Plasma 28 [facility] ([facility]) Glucose 101 70-100 [facility] ([facility]) Sodium 139 [facility] ([facility]) Aspartate aminotransferase [Enzymatic activity/volume] in Serum or Plasma 15 [facility] ([facility]) Creatinine For GFR 1.59 [facility] (Car dioly [facility]) ID Date Data Source [id number] 09/27/2020 09:39:00 AM EST [facility] ([facility]) Name Value Range Interpretation Code Description Data Elvie rce(s) Supporting Document(s) Troponin Laboratory test result [facility] ([facility]) Thyroid Stimulating Hormone 0.626 ME DENT ([facility]) Free T4 0.64 [facility] ([facility]) ID Date Data Source [id number] 09/27/2020 09:39:00 AM EST [facility] ([facility] [facility]) Name Value Range Interpretation Code Description Data Elvie rce(s) Supporting Document(s) CPK-MB 1.5 [facility] ([facility]) Creatine kinase [Enzymatic activity/volume] in Serum or Plasma 117 [facility] ([facility]) ID Date Data Source ЕКАТЕРИНА TIBIA/FIBIA AP/LAT 09/16/2020 12:00:00 AM EST eCW1 ([facility]) Name Value Range Interpretation Code Description Data Elvie rce(s) Supporting Document(s) ЕКАТРЕИНА TIBIA/FIBIA AP/LAT eCW1 ( [facility]) ID Date Data Source URINE CULTURE 09/09/2020 09:12:14 AM EST eCW1 ([facility]) Name Value Range Interpretation Code Description Data Elvie rce(s) Supporting Document(s) URINE CULTURE eCW1 ([facility]) ID Date Data Source Urinalysis, no micro 09/07/2020 09:17:45 AM EST eCW1 ([facility]) Name Value Range Interpretation Code Description Data Elvie rce(s) Supporting Document(s) 2+ Leukocyte eCW1 ([facility]) 1.020 Spec gravity eCW1 ([facility]) 5 pH eCW1 ([facility]) POS Nitrate eCW1 ([facility]) 1+ Protein eCW1 ([facility]) neg Glucose eCW1 ([facility]) neg Ketones eCW1 ([facility]) TRACE Blood eCW1 ([facility]) neg Bilirubin eCW1 ([facility]) neg Urobili eCW1 ([facility]) yes Internal QC Acceptable (Y/N) e CW1 ([facility]) ID Date Data Source [id number] 08/05/2020 02:00:00 PM EDT [facility] ([facility]) Name Value Range Interpretation Code Description Data Elvie rce(s) Supporting Document(s) White Blood Count 7.1 4.0-10.0 [facility] ([facility]) Platelets 246 172-450 [facility] ([facility]) Hemoglobin 10.4 [facility] ([facility]) Red Blood Count 3.52 4.00-5.40 [facility] ([facility]) Hematocrit 34.2 [facility] ([facility]) ID Date Data Source [id number] 08/05/2020 02:00:00 PM EDT [facility] ([facility]) Name Value Range Interpretation Code Description Data Elvie rce(s) Supporting Document(s) Hemoglobin A1c/Hemoglobin.total in Blood 5.7 [facility] ([facility]) ID Date Data Source [id number] 08/05/2020 02:00:00 PM EDT [facility] ([facility]) Name Value Range Interpretation Code Description Data Elvie rce(s) Supporting Document(s) Free T4 0.84 [facility] ([facility]) Thyroid Stimulating Hormone 0.777 ME DENT ([facility]) ID Date Data Source [id number] 08/05/2020 02:00:00 PM EDT [facility] ([facility]) Name Value Range Interpretation Code Description Data Elvie rce(s) Supporting Document(s) Triglycerides 290 [facility] ([facility]iolo gy [facility]) Cholesterol 296 [facility] ([facility]) Chol/HDL Ratio 6.166 [facility] ([facility]iol [facility]) Cholesterol in LDL [Mass/volume] in Serum or Plasma by calculation 19 0 [facility] ([facility]) HDL 48 MED[facility] ([facility]) ID Date Data Source [id number] 08/05/2020 02:00:00 PM EDT [facility] ([facility]) Name Value Range Interpretation Code Description Data Elvie rce(s) Supporting Document(s) Albumin [Mass/volume] in Serum or Plasma 3.6 [facility] ([facility]) Alanine aminotransferase [Enzymatic activity/volume] in Serum or Pl asma 14 [facility] ([facility]) Calcium [Mass/volume] in Serum or Plasma 8.8 [facility] ([facility]) Carbon dioxide, total [Moles/volume] in Serum or Plasma 28 [facility] ([facility]) Chloride [Moles/volume] in Serum or Plasma 105 [facility] ([facility]) Protein [Mass/volume] in Serum or Plasma 7.0 [facility] ([facility]) Potassium [Moles/volume] in Serum or Plasma 4.1 [facility] ([facility]) Alkaline phosphatase [Enzymatic activity/volume] in Serum or Plasma 9 3 [facility] ([facility]) Aspartate aminotransferase [Enzymatic activity/volume] in Serum or Plasma 13 [facility] ([facility]) Urea nitrogen [Mass/volume] in Serum or Plasma 27 [facility] ([facility]) Sodium 140 [facility] ([facility]) Creatinine For GFR 1.67 [facility]) Glucose 122 70-110 [facility] ([facility]) ID Date Data Source [id number] 07/07/2020 08:48:45 AM EDT Laboratory [facility] [...] rce(s) Supporting Document(s) ID Date Data Source [id number] 07/02/2020 03:09:16 PM EDT [facility] - CORE SPECIMEN DESCRIPTION URINE, COLLE CTION METHOD NOT SPECIFIEDCULTURE RESULTS MIXED UROGENITAL YOLY; PLEASE SUBMIT A NEW SPEC IMEN IF CLINICALLY INDICATED.REPORT STATUS FINAL 07/02/2020 Name Value Range Interpretation Code Description Data Elvie rce(s) Supporting Document(s) ID Date Data Source [id number] 06/16/2020 05:35:00 PM EDT [facility] [place], [place] [address]CQLYSTI NAME: STACIE JEFFERSON OF : 1945REPORT: DISCHARGE SUMMARYPATIENT NUMBER: [id number] STATUS: IPMEDICAL RECORD NUMBER: [id number] OF ADMISSION: 06/14/2020DATE OF DISCHARGE: 06/13/2020ROOM: 01For specifics of the admission, see the H and P, 06/14/[address] Garnett.DISPOSITION: The patient [facility] She will need home PT. This will be arranged through [facility].CODE STATUS: DNR/DNI.DIET: Healthy he art.Primary care and all physician arrangements through [facility] per patient.PHYSICAL EXAMINATION AT TIME OF DISCHARGE: [...] and H 9/27.5, which is stable. Platelet ,000. Chest x-ray: No acute abnormalities seen. CT [...] GAYLA Gonzalezictated: 06/16/2020 10:38DT: 06/16/2020 10:45Job #: [id number]: [facility] computer generated reports are notconfirmed or authenticated unless they are signed by the providerElectronically Authenticated by:ALEXUS MASTERSON MD On 06/16/2020 05:35 PM EDT Name Value Range Interpretation Code Description Data Elvie rce(s) Supporting Document(s) ID Date Data Source [id number] 06/16/2020 08:03:31 AM EDT [facility] Name Value Range Interpretation Code Description Data Elvie rce(s) Supporting Document(s) SODIUM 145 mmol/L (136-145) [facility] POTASSIUM 3.8 mmol/L (3.6-5.2) [facility] CHLORIDE 112 mmol/L (100-108) H [facility] CO2 28 mmol/L (22-31) [facility] ANION GAP 5 mmol/L (7-16) L [facility] UREA NITROGEN 26 mg/dL (7-24) H [facility] CREATININE 1.26 mg/dL (0.60-1.00) H [facility] BUN/CREAT RATIO 20.6 RATIO (10.0-20.0) H [facility] GLUCOSE 106 mg/dL (70-99) H [facility] CALCIUM 7.7 mg/dL (8.4-10.2) L [facility] GFR 42 ml/min/1.73m2 (>59) L [facility] GFR ( AMER) 50 ml/min/1.73m2 (>59) L [facility] GFR INTERPRETATION [facility] --NORMAL KIDNEY FUNCTION OR MILD DISEASE - GFR >OR= 60CHRONIC KIDNEY DISEASE - GFR 15 - 59RENAL FAILURE - GFR <15 Est. GFR calculation based on the MDRDstudy equation, which assumes a steadystate for creatinine. Est. GFR should notbe used for medication dosing. ID Date Data Source [id number] 06/16/2020 07:33:50 AM EDT [facility] Name Value Range Interpretation Code Description Data Elvie rce(s) Supporting Document(s) WBC 6.9 10*3/uL (4.1-11.0) [facility] [place] RBC 2.93 10*6/uL (4.00-5.40) L [facility] HGB 9.0 g/dL (12.0-16.0) L [facility] HCT 27.5 % (36.0-47.0) L [facility] MCV 94.0 fL (80.0-95.0) [facility] MCH 30.6 pg (27.0-32.0) [facility] MCHC 32.6 g/dL (32.0-36.0) [facility] RDW 15.4 % (10.5-14.5) H [facility] PLT 221 10*3/uL (150-450) [facility] MPV 7.1 fL (7.1-10.7) [facility] ID Date Data Source [id number] 06/15/2020 08:22:08 AM EDT [facility] Name Value Range Interpretation Code Description Data Elvie rce(s) Supporting Document(s) SODIUM 145 mmol/L (136-145) [facility] POTASSIUM 4.1 mmol/L (3.6-5.2) [facility] CHLORIDE 112 mmol/L (100-108) H [facility] CO2 27 mmol/L (22-31) [facility] ANION GAP 6 mmol/L (7-16) L [facility] UREA NITROGEN 27 mg/dL (7-24) H [facility] CREATININE 1.39 mg/dL (0.60-1.00) H [facility] BUN/CREAT RATIO 19.4 RATIO (10.0-20.0) [facility] GLUCOSE 117 mg/dL (70-99) H [facility] CALCIUM 7.9 mg/dL (8.4-10.2) L [facility] GFR 37 ml/min/1.73m2 (>59) L [facility] GFR ( AMER) 45 ml/min/1.73m2 (>59) L [facility] GFR INTERPRETATION [facility] --NORMAL KIDNEY FUNCTION OR MILD DISEASE - GFR >OR= 60CHRONIC KIDNEY DISEASE - GFR 15 - 59RENAL FAILURE - GFR <15 Est. GFR calculation based on the MDRDstudy equation, which assumes a steadystate for creatinine. Est. GFR should notbe used for medication dosing. ID Date Data Source [id number] 06/15/2020 08:03:27 AM EDT [facility] Name Value Range Interpretation Code Description Data Elvie rce(s) Supporting Document(s) WBC 8.1 10*3/uL (4.1-11.0) [facility] [place] RBC 2.85 10*6/uL (4.00-5.40) L [facility] HGB 8.8 g/dL (12.0-16.0) L [facility] HCT 27.0 % (36.0-47.0) L [facility] MCV 94.8 fL (80.0-95.0) [facility] MCH 30.9 pg (27.0-32.0) [facility] MCHC 32.5 g/dL (32.0-36.0) [facility] RDW 15.7 % (10.5-14.5) H [facility] PLT 190 10*3/uL (150-450) [facility] MPV 7.2 fL (7.1-10.7) [facility] ID Date Data Source [id number] 06/18/2020 01:19:00 AM EDT [facility] [id number] [place], [place] [address]RVFFJIN NAME: JANEEN JEFFERSONDATE OF : 1945REPORT: ADMISSION NOTEPATIENT NUMBER: [id number] STATUS: IPMEDICAL RECORD NUMBER: [id number] OF ADMISSION: 06/14/2020ROOM: [address] [place] [address] CARE PHYSICIAN: Sanju Lock [facility] COMPLAINT: Recent fall with reports of shortness [...] oral dailyMedication Status: activeLast Taken Date/Time: 06/13vit C,Y-Tc-wribz-lutein-zeaxan (PreserVision AREDS-2) 250 mg-200 unit-40mg-1 mg-5 mg-1 [...] of CAD status post multiple stents, prior ND with ischemic cardiomyopathy with ejection fraction around [...] Garnett, MDDictated: 06/14/2020 0:28DT: 06/14/2020 0:36Job #: [id number]: Sanju Lock MDNOTE: [facility] computer generated reports are not confirmed orauthenticated unless they are signed by the providerElectronically Authenticated and Edited by:LEFTY GARNETT MD On 06/18/2020 01:19 AM EDT Name Value Range Interpretation Code Description Data Elvie rce(s) Supporting Document(s) ID Date Data Source [id number] 06/16/2020 09:22:05 AM EDT [facility] SPECIMEN DESCRIPTION URINE, COLLE CTION METHOD [...] rce(s) Supporting Document(s) ID Date Data Source [id number] 06/13/2020 09:32:32 PM EDT [facility] Name Value Range Interpretation Code Description Data Elvie rce(s) Supporting Document(s) URINE WBC (0-5) [facility] URINE RBC (0-2) [facility] BACTERIA 2+ [HPF] [facility] ID Date Data Source [id number] 06/13/2020 09:18:37 PM EDT [facility] Name Value Range Interpretation Code Description Data Elvie rce(s) Supporting Document(s) COLOR [facility] PERFORMED AT [address] [place] [address] APPEARANCE [facility] SPEC GRAV URINE 1.019 (1.003-1.030) [facility] PH URINE 5.0 (5.0-7.5) [facility] LEUK ESTERASE 2+ (NEG) A [facility] NITRITE URINE (NEG) A [facility] PROTEIN URINE (NEG) A [facility] GLUCOSE URINE (NEG) [facility] KETONE URINE (NEG) [facility] UROBILINOGEN 0.2 mg/dL (0-1.0) [facility] BILIRUBIN URINE (NEG) [facility] BLOOD/HGB URINE (NEG) [facility] ID Date Data Source [id number] 06/19/2020 12:08:40 PM EDT [facility] SPECIMEN DESCRIPTION PERIPHERALSP ECIAL REQUESTS NONECULTURE RESULTS NO GROWTH 6 DAYSREPORT STATUS FINAL 06/19/2020 Name Value Range Interpretation Code Description Data Elvie rce(s) Supporting Document(s) ID Date Data Source [id number] 06/19/2020 12:08:40 PM EDT [facility] SPECIMEN DESCRIPTION PERIPHERALSP ECIAL REQUESTS NONECULTURE RESULTS NO GROWTH 6 DAYSREPORT STATUS FINAL 06/19/2020 Name Value Range Interpretation Code Description Data Elvie rce(s) Supporting Document(s) ID Date Data Source [id number] 06/13/2020 06:47:00 PM EDT [facility] Name Value Range Interpretation Code Description Data Elvie rce(s) Supporting Document(s) SARS coronavirus 2 RNA [Presence] in Res piratory specimen by SANDRA with probe detection [facility] This lab was reported by [facility]. ID Date Data Source [id number] 06/13/2020 10:17:33 PM EDT [facility] Name Value Range Interpretation Code Description Data Elvie rce(s) Supporting Document(s) SPECIMEN DESCRIPTION [facility] COVID19 RESULT (NDET) [facility] THIS ASSAY AMPLIFIES AND DETECTSTHE TARG ET RNA USING REAL-TIME PCR.NEGATIVE 2019_NCOV RT-PCR RESULTS DONOT PRECLUDE 2019_NCOV INFECTION ANDSHOULD NOT BE USED THE SOLE BASISFOR PATIENT MANAGEMENT DECISIONS. COMMENT [facility] UNDER AN EMERGENCY USE AUTHORIZATION(EUA ) FOR THE DETECTION AND/OR DIAGNOSISOF THE VIRUS THAT CAUSES COVID-19.EMAILED RESULTS TO [facility] AT [address] [id number]. [id number] ID Date Data Source [id number] 06/13/2020 07:09:00 PM EDT [facility] [...] disease. K6End of diagnostic report for accession: [id number] Interpreted: Clay Carrillo MDTranscribed: 06/13/2020 07:06 PMSigned: 06/13/2020 07:09 PM Clay Carrillo MD [facility] ACC # [id number] BILL # [id number] Name Value Range Interpretation Code Description Data Elvie rce(s) Supporting Document(s) ID Date Data Source [id number] 06/13/2020 06:51:46 PM EDT [facility] Name Value Range Interpretation Code Description Data Elvie rce(s) Supporting Document(s) NT PRO BNP 571 pg/mL (0-125) H [facility] ID Date Data Source [id number] 06/13/2020 06:51:46 PM EDT [facility] Name Value Range Interpretation Code Description Data Elvie rce(s) Supporting Document(s) TOTAL PROTEIN 7.3 g/dL (6.4-8.2) [facility] ALBUMIN 3.1 g/dL (3.2-4.5) L [facility] GLOBULIN 4.2 g/dL (2.7-4.3) [facility] ALB/GLOB RATIO 0.7 RATIO [facility] BILIRUBIN,TOTAL 0.3 mg/dL (0.0-1.0) [facility] PLEASE NOTE:Total bilirubin results may be falselyelevated in patients taking Eltrombopag. BILIRUBIN,CONJUGATED 0.1 mg/dL (0.0-0.3) [facility] BILIRUBIN,UNCONJ. 0.2 mg/dL (0.0-0.7) [facility] ALKALINE PHOSPHATASE 98 U/L (45-117) [facility] AST (SGOT) 13 U/L (11-39) [facility] ALT (SGPT) 14 U/L (12-78) [facility] ID Date Data Source [id number] 06/13/2020 06:51:46 PM EDT [facility] Name Value Range Interpretation Code Description Data Elvie rce(s) Supporting Document(s) TROPONIN I <0.05 ng/mL (<0.05) [facility] [place] Less than 0.05: Myocardial injury unlike lyGreater than or equal to 0.05: Highly suggestive of myocardial injuryCorrelation with rise and/or fall ofserial troponins, clinical symptomsand ECG changes is necessary. ID Date Data Source [id number] 06/13/2020 06:51:46 PM EDT [facility] Name Value Range Interpretation Code Description Data Elvie rce(s) Supporting Document(s) SODIUM 139 mmol/L (136-145) [facility] POTASSIUM 4.4 mmol/L (3.6-5.2) [facility] CHLORIDE 103 mmol/L (100-108) [facility] CO2 35 mmol/L (22-31) H [facility] ANION GAP 1 mmol/L (7-16) L [facility] UREA NITROGEN 20 mg/dL (7-24) [facility] CREATININE 1.50 mg/dL (0.60-1.00) H [facility] BUN/CREAT RATIO 13.3 RATIO (10.0-20.0) [facility] GLUCOSE 138 mg/dL (70-99) H [facility] CALCIUM 8.6 mg/dL (8.4-10.2) [facility] GFR 34 ml/min/1.73m2 (>59) L [facility] GFR ( AMER) 41 ml/min/1.73m2 (>59) L [facility] GFR INTERPRETATION [facility] --NORMAL KIDNEY FUNCTION OR MILD DISEASE - GFR >OR= 60CHRONIC KIDNEY DISEASE - GFR 15 - 59RENAL FAILURE - GFR <15 Est. GFR calculation based on the MDRDstudy equation, which assumes a steadystate for creatinine. Est. GFR should notbe used for medication dosing. ID Date Data Source [id number] 06/13/2020 06:29:39 PM EDT [facility] Name Value Range Interpretation Code Description Data Elvie e(s) Supporting Document(s) WBC 11.0 10*3/uL (4.1-11.0) [facility] RBC 3.51 10*6/uL (4.00-5.40) L [facility] HGB 10.6 g/dL (12.0-16.0) L [facility] HCT 32.9 % (36.0-47.0) L [facility] MCV 93.7 fL (80.0-95.0) [facility] MCH 30.2 pg (27.0-32.0) [facility] MCHC 32.2 g/dL (32.0-36.0) [facility] RDW 15.2 % (10.5-14.5) H [facility] PLT 223 10*3/uL (150-450) [facility] MPV 6.6 fL (7.1-10.7) L [facility] NEUT % 83.2 % (35.0-75.0) H [facility] LYMPH % 8.4 % (16.0-52.0) L [facility] MONO % 7.2 % (0.0-8.0) [facility] EOS % 0.7 % (0.0-5.0) [facility] BASO % 0.5 % (0.0-4.0) [facility] NEUT # 9.1 10*3/uL (1.8-7.7) H [facility] LYMPH # 0.9 10*3/uL (1.2-4.8) L [facility] MONO # 0.8 10*3/uL (0.0-0.8) [facility] Eosinophils [#/volume] in Blood by Automated count 0.1 10*3/uL (0.0-0 .5) [facility] BASO # 0.1 10*3/uL (0.0-0.2) [facility] ID Date Data Source [id number] 06/13/2020 06:19:52 PM EDT [facility] Name Value Range Interpretation Code Description Data Elvie rce(s) Supporting Document(s) MUSE EKG PDF encoded [facility] FLZWOg6eCvEUQqDnp4KwGuIhMMOaSJ7vvsn8Z1F6fSDpO2KxfIDsl0thH9GfE4AnDQUzOHVOTY8CnEYv jb2 [file] UDUrZPTZRv6Sg568ESIeWYCQFsk+NkuhrROxtJsoBELQQGTiDFClKjLwWU2O ID Date Data Source [id number] 06/13/2020 06:21:00 PM EDT [facility] [...] seen. K6End of diagnostic report for accession: [id number] Interpreted: Clay Carrillo MDTranscribed: 06/13/2020 06:20 PMSigned: 06/13/2020 06:21 PM Clay Carrillo MD [facility] ACC # [id number] BILL # [id number] Name Value Range Interpretation Code Description Data Elvie rce(s) Supporting Document(s) ID Date Data Source [id number] 02/24/2020 11:45:04 AM EDT Laboratory [facility] [...] RESULTFOR DIRECT LDL. ID Date Data Source [id number] 02/24/2020 11:54:57 AM EDT Laboratory [facility] [...] HIGH > 189 ID Date Data Source [id number] 02/23/2020 05:29:29 PM EDT Laboratory [facility] [...] CORE MPV 6.9 fL (7.1-10.7) L [facility] ALEXY - CORE ID Date Data Source [id number] 02/23/2020 06:06:27 PM EDT [facility] - [facility] Name Value Range Interpretation Code Description Data Elvie rce(s) Supporting Document(s) DIGOXIN 0.9 ng/mL (0.8-2.0) Laboratory [facility] VIDHYA - CORE ID Date Data Source [id number] 02/23/2020 06:06:27 PM EDT [facility] - [facility] Name Value Range Interpretation Code Description Data Elvie rce(s) Supporting Document(s) SODIUM 138 mmol/L (136-145) [facility] - [facility]ORE POTASSIUM 4.4 mmol/L (3.6-5.2) [facility] - CORE CHLORIDE 105 mmol/L (100-108) [facility] - [facility] CO2 31 mmol/L (22-31) [facility] - CORE ANION GAP 2 mmol/L (7-16) L [facility] - CORE UREA NITROGEN 22 mg/dL (7-24) [facility] - CORE CREATININE 1.58 mg/dL (0.60-1.00) H [facility] - CORE BUN/CREAT RATIO 13.9 RATIO (10.0-20.0) [facility] - CORE GLUCOSE 120 mg/dL (70-99) H [facility] - CORE CALCIUM 8.7 mg/dL (8.4-10.2) [facility] - [facility] TOTAL PROTEIN 6.6 g/dL (6.4-8.2) [facility] - CORE ALBUMIN 3.3 g/dL (3.2-4.5) [facility] - CORE GLOBULIN 3.3 g/dL (2.7-4.3) [facility] - [facility] ALB/GLOB RATIO 1.0 RATIO Laboratory [facility] - CORE ALKALINE PHOSPHATASE 101 U/L (45-117) [facility] - CORE BILIRUBIN,TOTAL 0.2 mg/dL (0.0-1.0) [facility] - CORE PLEASE NOTE:Total bilirubin results may be falselyelevated in patients taking Eltrombopag. AST (SGOT) 12 U/L (11-39) [facility] - [facility] ALT (SGPT) 15 U/L (12-78) [facility] - [facility] GFR 32 ml/min/1.73m2 (>59) L [facility] - CORE GFR ( AMER) 39 ml/min/1.73m2 (>59) L [facility]o [facility] - CORE GFR INTERPRETATION [facility] - CORE --NORMAL KIDNEY FUNCTION OR MILD DISEASE - GFR >OR= 60CHRONIC KIDNEY DISEASE - GFR 15 - 59RENAL FAILURE - GFR <15 Est. GFR calculation based on the MDRDstudy equation, which assumes a steadystate for creatinine. Est. GFR should notbe used for medication dosing. ID Date Data Source [id number] 01/16/2020 01:09:56 PM EDT [facility], PCName: Damion Gan: [...] The patient was last seen by a [place] [facility] provider on 11/11/2019. At [...] 01/01/2019 1:27:43 PM Current Meds Albuterol AERS;Therapy: (Recorded:[id number]) to Recorded Atorvastatin Calcium TABS;Therapy: (Recorded:01Jan2019) to Recorded Baby Aspirin 81 MG CHEW;Therapy: (Recorded:01Jan2019) to Recorded Carvedilol 12.5 MG Oral Tablet;Therapy: (Recorded:01Jan2019) to Recorded Cymbalta 60 MG Oral Capsule Delayed Release Particles;Therapy: (Recorded:94Xkh6747) to Recorded Isosorbide Dinitrate TABS;Therapy: (Recorded:78Hro6061) to Recorded KlonoPIN TABS;Therapy: (Recorded:45Shu3014) to Recorded Omeprazole TBEC;Therapy: (Recorded:47Tgf2012) to Recorded Plavix 75 MG Oral Tablet;Therapy: (Recorded:14Vda3341) to Recorded Potassium TABS;Therapy: (Recorded:62Wbs7645) to Recorded Torsemide 20 MG Oral Tablet;Therapy: (Recorded:63Sda5468) to Recorded traMADol HCl TABS;Therapy: (Recorded:43Fwp9466) to Recorded Tylenol Extra Strength 500 MG TABS;Therapy: (Recorded:16Jan2020) to Recorded Vitamin B- 12 TABS;Therapy: (Recorded:83Vlv7964) to Recorded Vitamin D CAPS;Therapy: (Recorded:40Lhr9266) to Recorded Wellbutrin XL 150 MG Oral Tablet Extended Release 24 Hour;Therapy: (Recorded:90Dju3229) to Recorded Past Medical History History of [...] available to patient at today's visit. 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 Discussion/[age]xhtjgn18 yr old female presents with increasing right [...] rce(s) Supporting Document(s) ID Date Data Source [id number] 01/02/2020 07:31:01 PM EST [facility] Name Value Range Interpretation Code Description Data Elvie rce(s) Supporting Document(s) SODIUM 143 mmol/L (136-145) [facility] - [facility] POTASSIUM 4.3 mmol/L (3.6-5.2) [facility] - [facility]ORE CHLORIDE 104 mmol/L (100-108) [facility] - [facility] CO2 34 mmol/L (22-31) H [facility] - CORE ANION GAP 5 mmol/L (7-16) L [facility] - CORE UREA NITROGEN 32 mg/dL (7-24) H [facility] - [facility] CREATININE 1.65 mg/dL (0.60-1.00) H [facility] - [facility]ORE BUN/CREAT RATIO 19.4 RATIO (10.0-20.0) [facility] - [facility]ORE GLUCOSE 164 mg/dL (70-99) H [facility] - CORE CALCIUM 8.9 mg/dL (8.4-10.2) [facility] - [facility] GFR 30 ml/min/1.73m2 (>59) L [facility] - CORE GFR ( AMER) 37 ml/min/1.73m2 (>59) L [facility]o [facility] - CORE GFR INTERPRETATION [facility] - [facility]ORE --NORMAL KIDNEY FUNCTION OR MILD DISEASE - GFR >OR= 60CHRONIC KIDNEY DISEASE - GFR 15 - 59RENAL FAILURE - GFR <15 Est. GFR calculation based on the MDRDstudy equation, which assumes a steadystate for creatinine. Est. GFR should notbe used for medication dosing. ID Date Data Source [id number] 11/25/2019 07:59:34 PM EST [facility] Name Value Range Interpretation Code Description Data Elvie rce(s) Supporting Document(s) TOTAL PROTEIN 6.7 g/dL (6.4-8.2) [facility] - CORE ALBUMIN 3.2 g/dL (3.2-4.5) [facility] - CORE GLOBULIN 3.5 g/dL (2.7-4.3) [facility] - CORE ALB/GLOB RATIO 0.9 RATIO Laboratory [facility] - CORE BILIRUBIN,TOTAL 0.2 mg/dL (0.0-1.0) [facility] - CORE BILIRUBIN,CONJUGATED <0.1 mg/dL (0.0-0.3) [facility] - CORE BILIRUBIN,UNCONJ. (0.0-0.7) [facility] - CORE ALKALINE PHOSPHATASE 110 U/L (45-117) [facility] - CORE AST (SGOT) 21 U/L (11-39) [facility] - [facility] ALT (SGPT) 29 U/L (12-78) [facility] - [facility] ID Date Data Source [id number] 11/27/2019 06:00:20 PM EST [facility] Name Value Range Interpretation Code Description Data Elvie rce(s) Supporting Document(s) HEPATITIS B S AG @ (NEG) [facility] - CORE HEP. B CORE IGM @ (NEG) [facility] - CORE HEPATITIS A AB IGM @ (NEG) [facility] - CORE HEPATITIS C AB @ (NEG) [facility] - CORE NOT INFECT ED WITH HCV, UNLESS RECENTINFECTION IS SUSPECTED OR OTHER EVIDENCEEXISTS TO INDICATE HCV INFECTION. 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 Pacemaker/ ICD ([facility]) Referral Diagnostic Diagnostic Status: Hold For - Scheduling Requested for: [id number] HAS A DEFIBRILLATORCLIFTON-FINE HOSPITAL Triage Clearance Initial : Please task the [facility] Clearance Intiial Task BoardImportant information regarding your appointment : If you cannot make your RF appointment please call [facility]ac[facility] or ICD : PacemakerClearance Status : Clearance Needed per Protocol 2. RF (Genicular) W/Cardiac implant device ([facility]) Referral Procedure Procedure Status: Complete Done: 11Nov2019 02:12PMRequest Type : MedicareIf no sedation document reason : Document in your note reason patient declined sedationSedation (Strongly Recommended) : YesIs patient taking a biologic? : NoGenicular Side : RightPlace Pacemaker/ICD order : Place Pacemaker/ICD OrderCardiac Implant Device : Pacemak erProfessional Wagon Person needed for block? : NoIs this an MVP patient (for RF's only)...........?? : No, this is not an MVP PatientFront Desk Reminder: : Schedule the Status Post BlockGenicular Provider : Kane Escobar weight: SODS: </= 450 lbs. HODS: </= 400 lbs. ENTER WEIGHT: : 158Must be scheduled at HODS or SODS only : [facility] locationRadio Frequency statement : Ordering a traditional [...] activity including ergonomics and aerobic activity. 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 Discussion/Innpeln31 yr old female presents with increasing right [...] pacemaker and defibrillator from Dr. Hernandez, her vaccines solutions specialist. Risks and benefits were discussed with patient. [...] rce(s) Supporting Document(s) ID Date Data Source [id number] 11/10/2019 07:31:47 PM EST Laboratory [facility] [...] - CORE MPV 7.3 fL (7.1-10.7) [facility] - CORE ID Date Data Source [id number] 11/10/2019 08:04:32 PM EST [facility] - [facility] Name Value Range Interpretation Code Description Data Elvie rce(s) Supporting Document(s) SODIUM 143 mmol/L (136-145) [facility] POTASSIUM 4.6 mmol/L (3.6-5.2) [facility] - CORE CHLORIDE 109 mmol/L (100-108) H [facility] - CORE CO2 28 mmol/L (22-31) [facility] - CORE ANION GAP 6 mmol/L (7-16) L [facility] - CORE UREA NITROGEN 21 mg/dL (7-24) [facility] - CORE CREATININE 1.49 mg/dL (0.60-1.00) H [facility] - CORE BUN/CREAT RATIO 14.1 RATIO (10.0-20.0) [facility] - CORE GLUCOSE 107 mg/dL (70-99) H [facility] - CORE CALCIUM 8.3 mg/dL (8.4-10.2) L [facility] - CORE TOTAL PROTEIN 6.4 g/dL (6.4-8.2) [facility] - CORE ALBUMIN 3.1 g/dL (3.2-4.5) L [facility] - CORE GLOBULIN 3.3 g/dL (2.7-4.3) [facility] - CORE ALB/GLOB RATIO 0.9 RATIO Laboratory [facility] - CORE ALKALINE PHOSPHATASE 132 U/L (45-117) H [facility] - CORE BILIRUBIN,TOTAL 0.2 mg/dL (0.0-1.0) [facility] - CORE AST (SGOT) 549 U/L (11-39) H [facility] - C[facility] ALT (SGPT) 127 U/L (12-78) H [facility] - CORE GFR 34 ml/min/1.73m2 (>59) L [facility] - CORE GFR ( AMER) 42 ml/min/1.73m2 (>59) L [facility]o [facility] - CORE GFR INTERPRETATION [facility] - CORE --NORMAL KIDNEY FUNCTION OR MILD DISEASE - GFR >OR= 60CHRONIC KIDNEY DISEASE - GFR 15 - 59RENAL FAILURE - GFR <15 Est. GFR calculation based on the MDRDstudy equation, which assumes a steadystate for creatinine. Est. GFR should notbe used for medication dosing. ID Date Data Source [id number] 11/10/2019 08:04:32 PM EST [facility] Name Value Range Interpretation Code Description Data Elvie rce(s) Supporting Document(s) DIGOXIN 1.1 ng/mL (0.8-2.0) [facility] - CORE ID Date Data Source [id number] 11/10/2019 08:04:32 PM EST [facility] - CORE Name Value Range Interpretation Code Description Data Elvie rce(s) Supporting Document(s) FERRITIN @ 1595 ng/mL (8-252) H [facility] ID Date Data Source [id number] 11/10/2019 08:04:32 PM EST [facility] Name Value Range Interpretation Code Description Data Elvie rce(s) Supporting Document(s) IRON,TOTAL @ 73 ug/dL (35-150) [facility] [employer] - CORE UIBC @ 229 ug/dL (130-375) [facility] - CORE TIBC @ 302 ug/dL (250-450) [facility] - CORE % SATURATION 24 % (12-50) [facility] - CORE ID Date Data Source [id number] 11/10/2019 08:04:32 PM EST [facility] Name Value Range Interpretation Code Description Data Elvie rce(s) Supporting Document(s) MAGNESIUM 2.1 mg/dL (1.7-2.4) [facility] - CORE ID Date Data Source [id number] 10/28/2019 05:52:33 AM EST [facility] NT INFORMATIONPatient MRN Name Date of Age Gend*PT [id number] Janeen Jefferson 1945 74 years F EDPT Location Admission Date/Time Visit ID Attending [id number] 10/27/19 0056 --- --- EPI ID CSN Admitting Provider [id number] ---Provider in Triage NotesNo notes on fileHistory of Present IllnessChief ComplaintPatient presents with Extremity Weakness Increased weakness, fall x four in last three days74 y/o female, with PMH of HTN, DM, CKD, TIA (six years ago), and peripheralneuropathy who [facility] c/oincreased extr emity weakness onset a [...] sx. 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 Pt denies fever, chills,cough, congestion, SOB, chest pain, BLE swelling, abd pain, N/V, urinary sxs, HAor any further sx. Pt denies a pmhx of Parkinson's. 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 Lakisha MEZA, NOVANT HEALTHistory provided by: PatientLanguage computational geneticist used: NoHistoryPa Medical History:Diagnosis Date Aneurysm Carotid [...] ENDARTERECTOMY WITH DVF; Surgeon: Maicol Blanchard MD;Location: [facility] [place]; Service: Vascular; Laterality: Left;Family HistoryProblem Relation Age [...] ED Physician in the absence of a vaccines solutions specialist: yesPrevious ECG: Previous ECG: Compared to current Comparison ECG info: August 2018Rate: ECG rate: 64Rhythm: Rhythm: sinus rhythmQRS: QRS axis: Normal QRS intervals: NormalST segments: ST segments: no ST elevations or depressions.Q waves: Q waves: V1 and U9Oxyxwwrl: First degree AV block.EKG reviewed and interpreted [...] POC GFR Interpretation Performed by: PERFORMED BY [facility] CLINICAL STAFFImaging ResultsCT head without contrastNo acute [...] rce(s) Supporting Document(s) ID Date Data Source [id number] 10/27/2019 10:22:44 AM EST [facility] HospitalPAT[facility] NT INFORMATIONPatient MRN Name Date of Age Gend*PT [id number] Janeen Jefferson 1945 74 years F EDPT Location Admission Date/Time Visit ID Attending [id number] 10/27/19 0056 --- Leydi Melendrez MD([id number]) EPI ID CSN Admitting Provider [id number] --- [facility] DISCHARGE SUMMARYPatient Name: Janeen Jefferson of : 1945 Age 74 yearsPrimary Physician: JE MEZA NP PCP Saveqkzmz Date: 10/27/2019 Discharge Date:She will be discharged from [facility] Diagnoses:Principal Problem: Frequent fallsActive Problems: Type 2 [...] tablet Take 100 mg by mouth dailyCholecalciferol 54226 units capsule Take 50,000 Units by mouth [...] 3 mL 4 (four)times a day as hejclpF-Qipbqrizfene-Ltrwu (DEPLIN 15) 15-90.314 MG CAPS Take 1 [...] peripheralneuropathy who presented [facility] the ED from [facility] living withrecurrent falls. According to the [...] rce(s) Supporting Document(s) ID Date Data Source [id number] 10/27/2019 08:30:36 AM EST [address] [address]Gcrphby Name: JANEEN JEFFERSONDOB: 1945Sex: FOrdering Provider: LEYDI Doradohoilda Prov: LEYDI MELENDREZReferrhilda Provider: Procedure Performed: CT HEAD WO CONTRASTExam Date: 10/27/2019 02:53MRN: [id number] Number: [id number] Class: EmergencyAccount #: [id number] for Exam: Stroke, follow upataxia getting worse, [...] LUIS RIVERO On 10/27/2019 8:30 AMWorkstation ID: [id number] Name Value Range Interpretation Code Description Data Elvie rce(s) Supporting Document(s) ID Date Data Source [id number] 10/27/2019 08:29:[address] [facility] Name Value Range Interpretation Code Description Data Elvie rce(s) Supporting Document(s) EKG [facility] EMDEAk0qWyKNMdZoz7RtRpPhWWEiBW8ebvm2H0I5vZYqK6PscFKow6eeD2PhT8NfHVEsGEBOAM8RhWZi jb2 [file] e/BoGAzC7HVwLEodnS6rvqp/Ovgfa//power plant supervisor/LIvz5/b5SGzK591LR9pJY6q63usR9GHC1yS1UDy+rkAh3q qZt3yWHWASs7M+BT9vK0gjH6yL19YybIo1tIr1idyo 0YnPzrATFEynRVKxVJZTZwwVU4tFK0cPCd3wvDxl7sntV+gOgzl18DxnlT0jfS+Y7mabv6+CeLNGXG/f YZzzaWeqR0D7mPH6LRVi7JhaptNlylnfqW6QHx0QH3YJf9GPX0WNM0GJ81B05PeHA1Uiw12GRmMd/amadeo [file] Ux27VczkhijvmBiyNkblKEr8u6Sy+w1NyKMavpN1ePZ1Lm5Ed78Gi8p9gfKdG/MH++c3znY/585/Ernestina+6 nn+jK4xCi3fr4/IBnl8qA977LsG+t/0ApE3n3w3Ccy /nZps4mzTAkGDR6eWJq9H+yPfe4/2zqiGJOv3U2R/bHP88c+b/7DpDni1+Ycj0M5Qr+3P+j50zs92h1Y n+1P/Nn+xJ/9T/zZ/6zf+5/1e/f2y9m9/XJ2H/+R3cd/ZVxuY2j3/QAg9L0WpV0X8rqHp4vkWkJfSh83 Ho9to4b/3GaP0vK7lCA8/YLuu9Ul7Pz+8zG2r+eRYz ns075Jwtsn02xK8ir/ZP/sM5jDS3d6adIaFLCItq0dz/sHrUM6u6rGygc12imM7V+6VGHZ3y+s0BG5f5 n4nwmTwI+V56MN3k9y76Eo//Gf/Y//xFK1L2l/WP/D3H/s9A23AkUlVRqY4E5x9KgjD+bxZ/5Iq3DaL8 2yyz4GjGfuDOCJ1X2pD/mob88shLCg/mY5nCXjablx sp1qb40+fkzdYiX7ydOEhk8Xi9A//KO0oy8hOKcNMrgECI/JVQHHdwa/I/jPx/IPK/dvgpVeNfMplq8e oalNz8MMR+5K391uJGSuQAp/GXgf/edl+ZdFUsSh084E2OMi+OfJTaiP5O2dY2ke+T1YUT0P9ebvcRvi sOTTZZMco8ei+lS5MfS7axq/L+P6COek/0jX2dnY5+ cd33nZ/MPWH+brozu+kyz9+B2Xn23t+c8/4ztz/Ml/3vGdLKX/iT/Hn/hz/Ik/xx//HGl5Kg9qvQB49f vv+T6UJI44/uQ/7/hOPJ3u+Q0KweEnm7GvuwA1WW/JJwLHd/YrP+h/1OkK5o4w18zfFFB6dn5Gx3Kbg0 Zd14Ijsg48Cq08/4L1nwVeVGI1zeN/Ernestina/BW66C44IG z+Qg2ZV7aFkp2aHlcNAPrfzp8JSAJTt5KT6hO8sgT/5z+Ra0AaJCjF47qQjaCs0/l8PHz+X4k/8cf9bv 40/8Of7En+IT RISK AND ASSURANCE MANAGER/RaGj64BMcv8s72HR/3GoMTN8xfBg/+gNOExH/9BaYJY/oNhgf1y/9Qmoej4/4k/x5/4 c/yJP8ef+HPe+FIYcB9l4bAdFJCjpOXZPQf/0oTqtn CVCa/1Rdo7M0jureaabv+MAfDugk3b6w1XlrkltoxfIcR4OwZz4JIYk4l8KBgwWN64jLxmPfS0Y9fHiN m5UlWsziR9q41hmd22ShkSGvezRkTdjslECGnnFpXWismXIQmRfYMN/zboEdi+L2KAbenCEaPqheUIZY ivQYiqETx1LBMLbF3N6rgiSZZE8jJKXjE4Fe6rxYUJ mR94R8D2vl7aVTHKxEKsU1DuyJfdMACVDv1mRRFoTlbIZZbZ2CPyN8S8sJGP3zT5SQaDOU6T4hzQYokC aUceJhK85GyDbJBXDnT6wASQXQPiFBOQTCMkz+5kfowsJ+p2QDITI1PvktRqZXtlqt1EsZDO2ziPXwJy Q0BVxYbNLCSaC0IT1UyL80zFGbxSCNdDpohnCksh65 HKXkC6RmOjAOCrHiCNntPNdDHBBP3yCirEHCvfM723NneY7Q8K6hVasg4NSBO8bcXTTyZ8ZeEltM5Fbi 3qdW0W7r6V10pnWl5WoszNSbgtHmMuSG2WyIwdhpacp8daNhimpJsjSZTXbVFGPYbPG+nwOs8EsMmEvq CdZY4zVNO9IV5pEmmS9dvrIFNO46EHIGSyL4ELCy4T ZeJhQOJobHNECxc4v7G6BCs3DEpBPoWhvpymQlrBEUehbzFVFjRz8RgNp3RxE/2Htv7tJ+noBKUU2RPJ tFanMeoWxUYL7clWRLO/irc2DSeyGlaU1FnWtL+L8VXyrDQuP1C5pha87R9l43iee+8ufE9MCy3w93yn X+PaTo4R+Df+kmItbOuZ2XGS/0Zi/s10dfpYawK1oh 6jxv8I/Fyf1UZHhQGjB3sa2y8Oj0phIsjr1k3/2DzE8Ljc8wuQxv82IGN7D4n9wCjoFDTWfR8wb1dCN+ qghnr+uYtn5WPI0DnMfEHYVK+k4ztZfhVyxOD8wBahfLLOvILU72Jys/T4LT1+S+tUj/B8GQZrHEgT9S zHddtF6o98Qu3sKmNozpxdsUpocdli31tRMax/RmWs /6yB5ntfaDfpwxJ8QEBxVOdw5FHBoPy1TBWpdlVvWRb/5t7YaM84+7M7+aScW6xUXvcl3TpRqUGzKHhz S78QZbHraRfGEU8rwqysWE+kFCWe6fpyQ3ChWwBkK3vzSIdIjQnAHDMrbYh1CEz3GneLetce9ziHZXhD 3WeD9fLSkSAvoyvLCgaa53wLdGUM8m/QH8NIShq0Ul hWkLG1xUp3w1Ri4SFelv5fy1jEvOqFO+1Nv0Il/xnnAh2OULzEojLbKnNGDr5GFK5HVR052AF6nPzTMJ tE+K9Woj5QkZsml80TXf1aasnVHpU5jFo8OaCflN7uIckRTWiLRhxSIMszUVTjf5addYqt4byHcw1IMO OiwTdZ7G0PVujNpsfuzAQBxnMzbRIupp0NUaiFgzGj wMQKxgKagD9FXdanfs7aO8DgGFphu3tiZxhBy/LWeoun8kwIsqfGvuolRTmM9HQRaV5u01CMEJZXUuyA q8o5gg2AwcF7xZw6eu7iqnh9KipLmyDmhTaieplFVvQOLZQPwYjb56G6F64ba+4ps10rHrAXhnv05ejq io8W2t8AjgUB+kuOliRBKHdJOEknlhrhaMlLbOngoy LKF3nvz6SCMx4PKY99xAmnLjj/1t2/+NzS6C3tKKwkwb9PfNfqnzJty3/lgOnYpzWFU6eG8lpuYmoEdq GpRM1eJaDBocCH/3dlLM18rBFrAYcBEsDpMCvShaBkF7XZLeghaXA/HPwb/6o6TyY3DkWXrpG0wjdEcv TRksnRkvx+cf8CCNtaeb2TL8xJhHSu3VIlveo6rpVt rBAi81pa5v67+kOnC4wy4IW4LFJbED1tughftr/AkId00DJcyhTAdqXmjxGLL3rwLp5ZkGtgL2nDNzC1 btj0syM6YCSRfmw7/IYwRxcDAVjj/s2XodTGL4ab0/1E2wxs9vvfwam6gY29nkXzEuUcy48EaFwZIyIu 9zERylFXgVCua+/0vq29RoIIRzMvVKXtIRAWj8oBby xePhxoCTXbejunKuQ8ECGf9NHE2LAWS7V3Ji4gJjqQeIw6WzIYsaSGtCP5YyZD1sWQDcHZEs9ZRowUc7 bo5GGh06dQ8w5bxZMoodsnY4iDE3DI5qr1o+NXtzjsDOpP5NBTuuBHIwQd97JMFw9PyyXOwPuRkEf6oc nlzbLgexi23JC16PT76YVwyqtjGF+XTCdWdRhedRge ig9L6ZDn5AOEJQrKrY8fuNXtn9Eunf12WV18UVoLnbBBUo+iI5DvdUpjv8a1xjsRXma19QBfPcvyr6IL OV+SZFoWmPMl+b2aZp0sISQSMpM0tYebu+BEwsQDh1TZd2MXs5QuS0fWd4ApSTy5EPUbDAMzOLHnJEmV p5RbqvAjBxlttWzNxXn2lX84lOf5KttUUK+7OwjlLr Ox7UHMX1rLQcnIuKLyQzoHKXTI8E1iIzs5wPx1yNz7Ca46PbJwBvg//7yV5u+z+t/6NaH/f//zfYIC/v c/3+nUw8qtPVg2d/05KHznDWEzeqBcPd1SIMdufDzi4ZCnyqE8bhbaMQ5p8tfJE7y02vJLcj55dTHeym 3wwwjbI9ucaarT8CodcnM9hhvpDH3ppgtW74dq5rG1 dtV4zw6ogM8u9YxMUuo90cNVcn03bVLogq6s2kbxH6t1vLnkxmap+cJpuBnuD/9fmWb/NS+VjMm0MjmR 4oBb3Cq4B92FRQEi6YT16RIrrhccQ38Ok835tlCtr95hcnekV8rqlvsN5zcoSfI6ogswVZ8kdjzBS9wq 9lIXxwI2ksYzQJ5j45heE8n95cvDjj14znIaz98oou yhH3v4eykQ0S6dyfV6a6chLw0yqreJB6nd7bLGTWrVYUeCH1M8MFytT5GfiNlPfQ81Mx+NC3VikJZGfn 3xZc6WLksUr+E7cNjeQ1eihhrU2fhsWoX0amaKAI8iitZWI9dw7wQLrzG7veNgGM2a8DrVY7v93qGIkl 81dxCdb69najooO0gvkyiP1zumziT9e9tsOv3piwdL D7ez3eAOxlK5pvPlVV8fHGQdOwMepGtbI//f/4YgCWGAeqFi9jCf8OyhIgwYHS7q8kSxdamQdbe/eP4w Bgn+Tl6XqvXFLnl1p7a3t+y4x/fWGit5n7EYyQK48zwmQ/gtOeqz/pJ1QqamM7c+I07CtYvtPbeRy57k 4xs2Ah/hVs+G0lYKScWwzMWUCZ4pzHyx6wineR6Ek2 91xsIwnSr+R6fn6XC+/SAsHdEpm48OjW6g+z/cDX/UlWsy9W+w9/AujHMe/s45ymmW+k2hNd6k/A3z3v A5pUQ87TDbsFBuX8f0QriOc+Aj/XgTzTDQj0TkE/m6c8vllnW/0RnxzceuX9/EaDiWDsd7yWXCnc10pu Hl4Ei5qc0d/1pGKAg9/vlSdRPeZXMyA63dJal0/[place] v/RbRHz/q8/cR5KwQlAfy+aU64lX4F8ixLK1eMwj2I1z9Tk3nOemq5f36+TnMxYaKFZF/09j81Nu2P/9 0F52Az0FE4UA4L1+Wa83e4YKso04l0BgXI3P/tA1fpdj+8HnOWU/+Wsn2Tu7Zf401tbgw/0Jtwiu70vG 9y33olYbPN/7gnrs7sS2KiC5vR5lmZ3vyc/fb472kn r/XNwN/+bq6hj9322HTSls8kgO5pvUu/9cHIZ/9pRiD2jkt41n5I/Xin7f7V/QNA/+6hWqY5a/IU7D7f mcwS8kboh/TNZEDJf/Qesy+B/a7m3ok4l+6vHTozFdl51c6xH/5uAsi953s0k+7OfibfhnP/wM8D+3+a If8l0iNHuK1+efq/7+8Hq+uqrvDx/h8j8Xh+E0XM8v 4np+UYFdzy/o4rxPH6Y3/CI+wuV/Dy6B5kofssn96mT/xOV/8Hngf/A5y//cvx/s8o5Xj0Xiv/I/tKut 82jI4F2g++HxW/ek/A9x+Z+Ov5ErRzhuGntA8u//c/S7VRPKrA5A/rB8XdD7t8ZrUjGujXjX/VQ5/eGy z4C5DuKbRX7E4dpB/av4PQ7H/RB3w2U/xNNw2Q/PWf ZDfIQR/xCX/wIqYC8ktyoYfOAbD7/Din8a/A/Pc4Thf/X01N3oteixZ0JloSeQ4SCg7pC3Rpg9WeFT/d SztcH/WSZ8mCUC/tL4LrP8+B/aj/iabjsh+cs+git74h3hfQ/YYV7bHTJ/xnA8j/N/E+D/9nA6/nnBv 7NGUXRqp7R/xCH4Xy/tQb/s/H3blj+p5n/afA/fG/Z D/QAvu9oSuZmO4WnR/g88D/ESnuUv2f+Qldd8cRA+Nvozi9eF+HoIc7ZAXCC/wDL/uF0L8hB2S/QJroK 4Ct4zq/5mWNwbab7XsQNqwsjK55Oe/p455Sc15yzYiA+99mxRYS8Io/EwvhjKRjvq22Qd8IaX85zyC/7 ZjZbXc6PQkbpg4aOi/mfDv9T/66O+PuWsCc7F/6p+9 MR/xBX/SEoP9n2XnaE68Xqc19gK8q2u9s29wA/EFf8w/McYcQ/sAB1l6Sq2R3Q/ENc8Q+jSh1E9CtMgq /fj3BT/Zhk1Qlj2w/0M20B7u6AL2FIY40aaSALlYf1/M/FFT/jvVx/2s2ww6Ife6D2u3Zc7wa3gylg0q 41xCk3h/5hpfz56/A/9bzrQ8+vbv6nw/0PXZD3jKzm gb+X/6nfQof/gX3C/xCn4fI/HceX/+Hfy/3OD8CZcEnv3kAZ/1M+tsP/8O/ox4xn3gB/TZnJ6loplZ6K 5X/wb4T/4d+XUYJn8ifXpq56m6ecAfz4BS/DuwkfYcQ/qFYf2V2fI21suX/N0xFKbgJiUhQy5Zr5xJ6G r9TNk6Qmp2Wfw3F7W1x4GrJ/EB9hxD/GNLoDI81N1c aEjpkp1JB32Nw1eMzdAC0Zz2RVU7BjO2Rca9Kir7K0P1l5Tef/AB/ghaiGzAxC5aZuQxq7PE0oKvJsM1 PJfkaX/MaPF1E9L/OQwisKlWmg0wWi9aoa9sgy+hdVFW7r3z/D1l+M5a9leT9U/Kristen/mfQ/tXqvrU5bm D8D64L/4PPA/4H0TanHnxeKpID/3S5ayrj0wgN/0Nc 9gQd4wW/mfzebG5F64lAH/wPMfI/MYuo80F/n77omj34hgGqIwtbi6ahlQ/B56T/TG1eMCXdw7Ej4A5a TSceUt0NwAzx6RoosmA88WilEB0F/RB3w3p+ouI23UqEDs3bn9eCZ9rS/rSP2Vp3bav6Y5A6FSTQ3FZg 8Q/kCRd4B2/fogliLh43q6MMZ/FPw9+1fp/eu7kLf2 P8T3b8/Wc/wXNW/pP8OKVfv7oo/vzPxGiC+fM/7+9f+1eX9FaA/8oDVjr9z6/CMT/7iYNjfvaTNYBulv /BIMUJ/6X0ViF6U184UA7/Mxn/BLyNJ20l/CITLALY/UB8nVlNqAOl1MkMK3GNt1qQsGW/FfdOxD/G0QCrA6 l82Q+jwrcorlzHxfs0zGbO/2BYzCz/r2VBH5OUF8/v Q602mG2xZvx0K1TZ9B+LZb47WtqSe8Tx2B616cmfzw2qRuECo0GLhOergulV3K2HR0/SIXi5FWTcDX/D 23y5u5DeVRz/YW97Vazkv8Y1R/xd+Z9p+Z9J/4O/z+bILjpI4H2mywkbq3bfk1R97WvvYA+veZQ/nKcb Wy5nKy6gSdr9Jq5IB9B/PalC5sYt86z7KD9PQ8heJp p+Lcv/LIt/lsU/K5Q/IFICqQ8mbF+MLi6YD6NL1Q4ZWwqnF4PWrzUtERaY4iyzonzFM2ggbhQaHwo/Lf gfYtW/qeLrC1Rgi8EgdMbI/nAh/sE5Ef/g3iL+CZ8YTdkU4Z/Og/iHeBpW/nB1xc+rK35eQ/PuWcKK1p MaZj/D7GeY/ff6y7h2dih+HMY3w8D9xseEa/3guoh/ dEbYxo3Lklq7KiE/xEcY8U/9BhfiH+Edam7aVuz6z+G7F2qgToTTa/70im4ttbd+Xhb/OKdv0oM6EGiv xfUX/o4imNiKtt+pv9P/AKdh+B/gbhj+B3i+9emC/9cpaZt8i000wfsiTz1t8H1r4Gm9Bu95LD851JgR penMlq2vH/6nPsN+8tkjvruj1jA9uVh+hqn1h5Z/Fabi FkHMBWPfri8RB2FfyTNf0dXgCbVuo+seF/0tjjHe0K4yXK/9pW/9oW/4a5c6pIxmxw7bBV4/PsdXc6S/ 19M/4W83g3c3FXleiis7dPgqM/MwpX/YU0s5kaxK0+J8v/7PI/UfHeLv+DfOP++R/mIffP/3x/t8Dfr/ l7KDSk8+Y5d/unH0e2f/YTE3//2Q8Gge/qCopUo2o/ tKp3b/wa3Og2W8wR/qfOCf+D+4z4B/yS7R8Tb4yp8MLOUjzwNq3JyNBj/nxIy5ua/uSug6a9Qw6Pmd94 Da8jvI/Lo8PVyhWFnd8Fj3VCq9lz61lz2xx1m8aX5Fzk5Z0vG6ekC/L83mfLu+Exhadsyervm/V3XEv1 39H8K2OVr/Xeg/KOgS3V4g/hfxo746S5G/AOYa2/Dt ZfxBU/l20c+J+Dv8t+VjpXplcYQ3jmQAr/Z/qx/M+x/M9h/hsWJa7WnC2lzmq0py22K/j7NFz+h3gbPs K2/jotDSv/c+B/KGpV/f3A/tg6lp312LO/EKt+ulsxb8lF5Ypd1qN31/CsIHST71vvcn4oMEh36PB642 J424M4P3K9z2ot7O68rlGV5g0mufH384D790O308W5 82S8I02T3m9A9N7tMrPM3PQe+jeffry+jeffry+jeffry+jeffry+vth/b2uy/a77ZdN22D0P1gmoi4X4aQRqs/PTsNN 05KvAaokT6EZo87/PqBo9gY0AQ+gR8jGkf0Xmc7Mtk3Keu0Ilu4Wmv6Kth2Fa60PIiiJ+ArOpNAK9hR7 YLbfWMNONfffcgU1Nz5hP1Gq1zIVyIVWIQbJO1vHmo HenZd0dTDVRs+zd7HsKY4fyiNxwmW0COp0jR+4gULcP6lq5WmACjFNfaj12UHX32QTCdzzW8UJ2ySuMT 0ebKKxc1KSQn9mRrzNk2TIc1Rf5SO/NV58GtuqL/BUlyjVGB+wkhWYjYQSdHxmF5xBGdR/nsv5MWDZPo 4HPuu+0o8+ObsJLzcF4zgemzB6sLleJf9w1hmsbpJJ jCh6ig/Mmy4szD+Pxo8vuLNmOXODR98L0mNbpn+9tCpk8wwTlMuijIvq5/raH7ujfawjhGHl4NQm3d3q /UgEnIAAYlvxNFUmnP8pbDlMqlNpV9gmD2/W+C0su8o4czQBaLfu1U4x+12xzr4RXNofG5E6bN9RjRJy Jol4YOT9tIeTrVdcOx8u/Pa96OPsZSiuvvxdZCoUYa UecOv7H/4LyHPwzhptwPXG8MsdLFmQzUt/zmal/jli8Zfu9U5G8gY0CPm4Y4UxIkIwoKKTPCL4hGGRL6 COBaTay2rmQOfVeJzBMrQQ+Gdd4HtJac4agNRAYvz/CFv+MbVZf7PeyyGPBgqGRZmFQZMRoJj9zF4IRN NrTeId81QUxGr+cwUgSCtQ0s5d4lCUfoSCbT88oh6Q hR9HNSgt9OSm2EUbq3cK/Yai4k9nLFUo+9KtpZG4/GYiBZakqbeAIAQwzTxDfo1ss00MPEGvBPYDtlgq rmZiF7Srg2wIA9VdG7RpeP1jIsfHlXEdyWRwkzWzXL6HUPoiiO9UWtOZjeZ18u4C11hgd9J7KIYzgsDN I90JYn+O1FDnC5sN4ALLQcVEBJKsfHvYNs9TUJpGZI jS47f0+N8nua0sUttZo7/T42g8XWObLlFiusqS3TfBn9vMiqWl+71yjCB+yvFd1ZFIlHEpGpqI/tlZkk lMEdTckoplOkbZLIheYyo7ZtrvbszEEOUiLBizukVrWJGWAbYZzL+AwzpG7U9M7e2NuF8Y0Q0SHy5n9s 5a0y27V015Bpj+ltTMgzGCv8PateBJj0myaRGxXIs6 eHHXxLcHWRQrIPgj2dLyhRX6G14Wrt0pD+WhuMel77oUlcswNbpQimdcnrBdZDy4RIwgAo6hGC5ighYU G6NlYjnCE6NOcUI8+WB7IAHt/HEdhPW0pPP0sOt/S5PIOXJY5uANesWVubGz8FCIbSP2kXQK+l8YsTS2 rLdCe7MLb7B+dUTpUAHfhA0jUxSHi5b4xYRyBo4b6+ berZ9/h6iSK2HE/8bKC+L7VaAdc3PpY7eNUAjC/4BSHFX/gFQcZf+VZisZ2hrnIe/npD8U1BO9JH2Nlv S4FxW5D+Bi1PsqyCD9veDdCFxA4fJmU01LuudyRcjYYwmUbUV8ov2bBXO0liSmZN8oNMK/YjugWptOlp FowQbcFOWzKi2F8laqfA+y2AJ78S9CC2SrjSz2mBQS ghPQ2tCMU0TSGOek7h2DLGMUjy2zr+vOmzA9F75HezScqo5aZy+qy+8rSq+W58nSGlIh15YXBwlNl8MX w/LCVJ6yl8REm6dKN3loq7F3RV2UwM2ZRbePyovrfsg5S56P/2ZPp45v5l4T89GCkTNazH9fkusheya+ d7A1wIgTKGv2WS5d02Vi9yCToFiArPj1uYWmeoo+rZ sANLopQKObBDSoQb+mI8I0nVf95g8+6x6/dcZvJOEknVj+rXv+rXv+FDa7BfTQrO3B8Cacr5MKFHNUCJ slbMjsIhM1Zj9yR4R0yv0MkxrFszPm18KzbmXwY8Yavyj1ERcqe6ZsT9D27RZxqj4H6U8wgw5SrgjtLp VM6diWlRmmu4Iwhbd0cJCldNOoTL8mb+1pH4gMW4I7 M+XFAWiME8woa7qwwzG5J6jNR482V579Q568P46808/v53eGczVXR6RjcQg7DwkrkrUAILsyEUYADsG8 0T7cqWgUR7fIDnUlP7P+dIM4WDderCfPHNZ63dOYaiZS2pcVnRA0OY/UtV+GHgkdzhYltAtZy4vfLrzN dXsjgbwL/12kaNWJvz7JS47H8r0VjsJAkIBt05tDpv 1WsxR9y8eGAQgCuDUJKAmWyxmU7Bd9ZEPLpfqdQVedNlO17vSks9cnde8ysLm0il5aDPgguBR2tpbY6g foWYBs18ECSiGcv6w0MOI/Fx7XSHYZhKtCGUvi4hEV/hGjiMLg1wP5Iqy506nB8/xx4fQcatXf81MtCt 3ATAJB5QpsySVQuEn+9pa8b+BvVt191z/f0EMomQtQ gqviTmtpTTzp6Z+K+I3dDjx+Gx6/QRR/5c2as9kNot8UcgkVMEj/ELdIF8tkTTXPUiB2weiEm6TysRKM 9frCmLZegEb+mUSpbSfEc6uQCY6KkUsncWTiF2fcHdXxdY/eLAFq+QaOyjSHImY9NLJDE6dVI7zZUi9X 4HlK9WrPdTJRoUXnu53gTU7AAm2i+LxA6vNfyAv3DN D/RZrICeqVh54N08jDR7Ss8xKFLftZty7QHHZA5X7OprEm6Z6a9kFd0BNShXk8TYZJ/0zV5ZdYEdU5Be z/Vj2LKxZNIXUsC7/V1J2urthmr89DifC5fBkGE6dM4D5k4+BfXV38Z78MZAXDfXGd5ROgMpnEvK+QWP 4GWurzCFC6d6OqIu+cEddfq7HiBmPWXz3Wuk0rKoxz YFaNTGppweEIr3aQo4vEu27Tnrq/HwfxG//NeP6qeeksnpk/Qye443i+Is6CdFQinYEUjN5SOtn+bXr+ bTL/RtKcdCfDfqemBInprWDmcntbbm/a1pqV5dlL7pkZ5zpM4htR2poO92yvim+h2ukIwKkx5WkOyuTS oQUDMIdc77L0LrZ4y/CVtYxsJxa/uUA/XKEfLtEPav QvMf/xNl51Tt6VbgQ7wfmentN/mwgw3hkBArhQ198b/b6awmpA1pDEr8S6JozpLz7PNGd5M4Bjq5Bw/7 1WtXZ95kW21MPjPtPMzT7XembwB/A5ciH0YcpqprkC42++S13EDXqKMR5+ebYkR4Y2Bhc6+Yw9uB03/J Marcial/Nvy/3bcv+9gSS3EJjLeS6uoTL2sjTB/Y+YPmR5 S6vl+hCK+i+LWcNOyvDcdpsGlXzpjIP5mtA1GzsmzFd/OUJByl8u0yE9avVU3U7NfeSkP1pLzE/cU//s 7UML+lt2760D21iinTqc0qpg0TbCOIdO/6I2Cu5Bm0hCYwJz4vi0eaI+37kn9IzCQOsFxph/z6y92SWm 9+rm6airF8T962719sy+47znFUT/8JwIQS0eycMfGf X9y1RT2PNi/9IjOUso35vrs+/FgeTcck6Zi5ASugMZ5TJ6dYyWLmiXIpZMkZ0b1oeUvT3Qel9XCcTbrB PazBbYDfCIrRewH+CRWi/e44P13TXeTHWLY3u+mL4lSHskAyCj+hWW9uvSfmuJ3vdLA2Y9JtbFXpe6Xr N8NU9ZyW+SMeNzQE0UkDY3kViP9AXCF0ybl1u/2yD2 NA4vh7qvS0dQq1DY32RhMq8Efjg2rwUTau62wWF1/d2hvzHZniJbwyMHkD63u+41e99ug0Wo56dQruI+ PnCpb8WbyAk3cFwlX/Jk2VK5R2hEg6dts+3x2/y9gYa3pj6RAhhvwrKv17oi19gi74ca36nh2GeMIkq4 b5WQ9nAA6mj2LsQ9ABt/uo0zoa6wGvPq7QDfwvNjCs OhlABm64uF9suhlliNJiMhWX7gs2nuC69CIS0y3ecXtg9bfCE+rZIqRJ88jT7oQRVXAQXbUf91vYemzY ff4YlTFG5oYJ8QQq7UGiOyT3nj8V5o5VVs2HGjIJbI5e7+9MWP6qiF62LYrbxwirGeciU7O5TlC+7Zph LjYGrj12Zrlr5J0P2M15o15qe80Ij44La92Co73G4I 4AkkIg/zUqS3CV4dqY3SrNUWSrI3eIL930OoXEPBNZalE04sBjOVceX9a+L1YC1ABFizWF/CPQmXdMUh 8YMzlHXLoAOo6tiR4CoHDZk1xNt/dry+lG8IgBh2upBa1puU72l+YbF4a3DpWGqNARcVygdOk57fSgQP CR90fWAXPSrPGF2Kpa4Hn7t2hsA1qSbgeEbYL7/Y85 HbKnxi77cp38ntv9+md5FKXCSbopLwBlb8Uaj6ZM3l/Qw0G4ur9L70q/hsxk1y3y53/46jDRLfi7Lrjo q36YDeySwfPjQVO8rGR2d8JIuFa4pgANyfm0V4sxf/kGXKGCD/RHbuBbbC4jAnZ/cvfEjUiyk/tpk8uX 0ZQFNcx9SwSJ+r34QWlARFJBA/O51+7gdV1ebZREpC 1APcRO5c4zsq31Dnr1mdR8Y6RzaIlxXPb5nPkUbyx+k3qBvf7ZGsf3zga2ey6HkdpIHS0t04qceIPRdY 9FoNhmNRlCU6gUQ4wi5bPGknkb89ITlXz4/X7DKCPY+i+gIGyL/zvFJz7mAJWpMt0bzMHeITCAASbUU5 25IW+xceae+xjXFst62RY0GJ2rf3ZKV+5yxXoW7/Vj /Nj+lDMED+NozF/qIG0ctRCrW9IlLGAmnUL8KUVwxSOqhUTH1dOCnEA6VCoAm1MjE6X/CfYPre/NimLA uMjgyxiCsxKF4OQa5lBajlia6ZxuF+rAmgu5dryen81dzgAxbTEsnqtn8lTB3yL8nmR0dR5uhpnAd6ju X0bRmED0E73vgr644i9GBZ3gBwLgMHqnT1yaWvWElw 35tsGn+E4x0SivYYfXbV8zI8v1+ifG9y/9Et7gzTt2wkYA4yd+J6AAeoRzo+i4XvzIcRv2WO/NYp2WsN 5FGhiA9ynm7jv/Iehz1St0ajKGlwNbDGJ4Ip+pOB97gb4Xf3g5gtXgIQTON8shJAM85Q25rGIZ63Ijdo kty/UGNvWONdbKeD8JLjPY8FWU2IjwLPkOe/gWQ52X qtnzr2Yns/Q4SLkY8tiAS3VKL/otCh6mjscV6fa/LpGs6nicFyUpMNzZF5RAkcK0W8ZpjUtQB1UNQ/Qp AsJ/ggxjG4PpXyapaYPWqj/hDQ9OmcD0ERgZuRfWmF+dk4phs7NjBvRw/gg7HIgf7/Sp2sid9/IX3/Qq b7N+7a1HxWTSaxJI+UxzwSFIcr2z4c9k9v/yI1oJc2 A2Z6/RWpm5Ig/GTEStRhkytdqR2yesvGXjs1B1udrY4Q4J/Dm0oREZH7Lp3RFyFcs8vY6o5yLM0RW7n/ 8Glf6YjEMTmb47uiJ9V/Q8YZw+O/MfkB+haEUz677Cevef/X4thDgW8Nf/6elCfjjK1/Zyv/BlEKpsaz 2armutMrL9vXj2tqvd2ZiXQ0C/pybBm6wiw/ez3Ucg FT42/Lz2EQ5TkOf0FR1DKhZzvyhq7+JFgvhhgs652ablqHhy0suztK7FsF98FVhRL3oNur4tIBO+NFbL 2A/JxGjEuIW3XRN75q4WQt3dzZtkK2KHCV61KjPIsMdR/X8NwJ6GJ0D1mVoE1yKy6716IHakM9sv3h8O +IrE80Aifc4xWeXOCtTZI1/XZL2O2BJZ1l61wm/Vt6 k/tspu/NZvXTZJ/5zmySXrtc1x79v/ewfspXWjPSnWj/QnL/ywTYmoRf9At/JuvKx4Fu/VnZLP+W3vY+ yn39Dcy/FZB8KGvD36wPi0t+D8/G8oaFaYCgv1DTbKZW/TSb5d+ymT4km+lDspk+EVzlH0A07E2NEcOM lPs4VFfQI3YAHrFc9WBjjZ2zr/SHjBOMTfKDb9nb3e l0rAqaA7kbSFLRcdK1Pq8vQNqnT6XuzQm9/oX0/QvZrDlR+m3E1F8M6uc/ZTZf2QD9QjmpXG2LS2I3R2 LRTB+UlnNa4Ctcax38Xrm3Sdepov2+w3L9wY9o+pBspg/AYexYbVFSePe2wSlfQ1ql27Tf+0+zmT4km+ lDspk+JLl/3GH0xVj0pnv+02y2/zSb7T/NZvuzstn+ 0+y2/zS7r0+7r0+7x2/l09gb2ukMyn8V0S7cEnH975mVNG8/PzfpM8K5/uIUapT1xXH/AufoWP+Q7NY/ JLl/QOL13h9xsAR+hftKLntF/UOyW/+S3OCOEh5ojFN4ZYa8QuVZSx8vaURd3R91bq0Jcw4w1Y4ANLhg n2a3+cidLdt6GZ76a9famSEc/ftKOrHnabf+Iem99r Nb/mNBosz14KxC/Qt8omP/ZsVH6P41FC2I4GcxZc0+tjucc2pqSnGcUngHw2C7G4Caoj6RrAf/YyTsX2 B6E/uXrJfD9Jw3QjaKK/x2DzP/bo7L5SiYgwJYsBVp/DfyniA/e/lFzOhFvuVgwvQHRV1sWR8pCP29Bo hF+TfmvLF/AfPbMCp+NX4l5d+kXLptG3Inm1/xE7h/ 58PntQv7s3vOJ7XG0WdP85eBxN+O+hCSsFuF+J2EthtEviDY80ogKF0zXbW6xUHbHBW/4ZFwohbHGBUv 1q0GyC3thPJ22sCWktMact3NO3tmqXm7LXp1xQs3UjzihzOjDHtEa7r7nzsQiz+hYR0Gb4T4wlkdBurZ n5NxkSWK/YrKkWAgVxsZnH2ukP54rjbCUHA7XYRiE+ BSBPsXaG/o4f+IrRfQxZ/LSdgZLSdMe0F8IT+Ww/OoJnkEoB7fHRaOjitgfJ08ao6Cf2vfeJs+bXj+bf qRuVu3wGKh/uld/XPY/qxkX/2DnhRggVS5wGts3Off2l/fY/letve/ZDpZTrT/IYhsm1A59ImjaWQ7h0 Jd1c6fOMOq9/4wAawOrm17V1E+HJhxq1iZc6+8338O 92/XDh2w4AeQXL6sPeL68nA2aFn3Gnv+Gx6/DY/filo6j0l+Z6ifv3NFnefG5DlW+xdAuH/gdeBhzE2I 0/gc8n0iMh7P9vaJML6vhx4PSFfFPTrG/3zc3F+AzweqyggL52+/GbTgZuWkjfK2IG8a3mDxVT3Kdai5 8PzhDbx++OD4rxF+PWzJM38+7+Kfy/wnj5QVYg07bx 8gRvfa140yvynzV7z29zrBoB98ns/G3+cPQ//918Uud3BmdI/4A/z3nI0terUfbaG8D6018dga/TW7h/ sPc+P21+i+GBulp+Fl+Pu2h4/zm901XDyZ6CcM0vD+nu9cq5f3XN3/De1+zp9fu/+Wn1u7+PvSJd69vv /7uIicp5h8wI8iG3Cd0qfJHxar8uYjGldpQp/Fz5l9 M8y4068ak4yVmmzC+7UvLNXjIp6e1j+ChW5eTAD/zriu6BEQc10+X85/XPK9wfEvwA6akXhGByaR6w/v ovG2tiu4XztByK0/93U/9Xl+/yo8z9X4G/y1n+/x1A//7g/O619gwJgF3O5o2vrrnb00td20Z9qgn7rb Z8N+gMt+KCJbhst+xxzkoHbj8Qx8VLcpki/udd40F9 oup0wcSlhD/PSfn7q/kZ+cGc5aOVUe/0AW7hS6yZca/b14MQD7ySKQRHhHt50GFprv45XspuH4t3R/l/ 8h7obL/xCX/wmWeuzvP/1ip4tO2L/y1hTee+F/iJvh8j/JATSBrgqsp5U+B+60sj4PgnxBh6fa/fmfh0 qIG47Rd/+5/5af/6FvrALAxT//In1H8i68/M//PNx0 T37+5+Evgfpo5j//3HvSt+Gj+cVRdvpoD01c/6Pq08i7Y78JLfc9x05Xd/AR/szlo1ElVd7LyCaeBNdv Xv3+XhL+h/i831rC/uDE6CpS9eszRi8/YFqo4Zi+jyfMho4OE43v+B/iNFz+j2htOs0FWXaG46Oli6H/ xGU/+T1V7E6f1K+KZDn66VhQ/gfHw/9MJ6BqL9CRc/ u7JPo6g+n0Oqwumlj1G1TJg2/vhst+yOfM97mhpEWzv4YnD3xmwPDgZ3TCV+Xt39+z9EMW1mE7+/velP 7Ssd2o4T/l6x/omhdSlrfC4j9ig8qP/qc+D/xP4O/lf+r33uB/GnD5H+Wim1uUVjsLa2/Lfgb+XvZTsU GD/yEu+6lFdoP/DN06XfCmyJknyk9j/A9x+R++t/xP +bcG/4PPD/9T/qrB/+QbXOG336bS0/swzH4s/sqcRwB94Tz91PmByNv1k20/h/0gXkDbX0IyuGpH4AL0 EAs86AjLJG0ISFoA/KB2z94w1L/lNBx7B0eEh/3g3w7/Q1z+ZwLL/1TW/X5fP/9POXcBgL3xUsuVhF0B 5jjmZz+D5/fDi2D2T/+ImEUF4k/UNkYd1020NtOd0D v4n/dG9F4aT8k5/M+C/Zf/Kqn9df3RzU48sHSgfAU2RWCm1+nwPxxZW/1Ht7mIPG5yy6e++kf20+F/Ks 7s8D/EXY80Jqy0F1NQG0IWp1SpPT/E0/NqnSx4u//Nlk0xH2JovGmb6nTlfu215Moik4d8a24+p5v/6b b+6rb+6lx/CdnQ2yPe2oul5Z5k2DY6/E/g+CMM/0Mc 71nW4X/49/I/oa86e7YOO7QVw6kOQ37zxz8/IesT6D80/L2b5wu6z9wj2KC0v1q2M2RPwZe/uOLnBpzP T9cveJ27UmQHJ/h9cTbBbrn+4ueGYyp+Jj7Cq+WuOHbNxq9rBA5/82qGu+GxhRU/F526xxybS6i62C3+ 6Rb/dPM/3eKfbvFPx/cJpLkv5SzdNhg1jyzgW72z/U Tewc6anbN/dIt/usU/nfEPznMeHox/gMNwHuFmWPHzYPwDvAwr/hkW/zjCO9Yej6+GxT/D4p8B/8P3ji 6s+GdY/DMY/+CYIwz/KceL908ZP7DpR/w1Hr6pmD0qs4LfSC2qmW6a6WH/b3Bf5x6w3pTCtJqwfb1Q9o 8G/A+Gld8pNu3oFrnFPcQpvvry+wx9Ag1fT4r/DMv/ DMv/jGH2Y+uvYeuvYeuvMcx+htnPMPuB/8G/C/4H9wH+H8EgzN3S/G4GOe9KgbaX/6H6ak8MjnE/VIw3 4H/m/McxtRfD/1SsOOB/iMt+No4p+ff6d3lZdv/LkgtBfjuESm0V/nDA/+Azw/+Qd7kC4j5zs72ZvyZN U4iCI86zk/8M+S30dj74s4gMB/ifigcG/E/FDAP+hz gNl/6Sf8McX8BQgUsFg85Wk5yx/A2gZB7h4Rm8s/PFhBP+Z+LvZT/E5+LSBnvCnnr3V5H/KVuayP/U91 ZHsq5INR2tIY92c2iLrC/76QvH/OxnNIyv/dnPaDVStvI/od4WuzageB03UkO/wvgtcd17LDF/OKb2i+ ucFf/sjvf+4p+Ls1rBG5kR//wPYshqpfPwL/5BPFmN dBhPTvgfvBf+B8fD/xCX/XQcU/Jj2YoiyC+yaG52F2J/xncB/6WwwjqETql4B0QSO/T9SUOGVVsG6q0+ Bxj+h7jsp+x8wv/g+4X/Hi4qIjuC/5mW/5mW/5lYf+F+Tj2/BxFp5cIu7j/A5uagOs1XAA8PTYK/iNeL Dyf8D/XMwp4zHqqc0Z/T5173A+EhqUqY4ADs/od4H5 1T/mfC/xCnYeUPJ/1P/Gc4DAPetIQuf/wh8BFG/ge/NeR/yTG07Fq2V/8y0YTcR9Clvb/47O90oEdBpr eVeO3fgW979Lex+YX8c/mEhfwzcTes/PNC/vmDv+8QPsKW/1eEdlQbb8RqoOHhLdVLYljj2da6tVY/WZ b/WYx/0n0KocVk/7Ms/7Ns/bVs/bW4/sJ7t+EjjPiH l9bQa3rF0Thl6d/TWM5YcJ1FI3HwltAgGquaEUz+nucMx97JiDfMOq+z6H/qs5n/WfA/xPI/i/6nzmP+ H6v3w5q8r0J/EE/dH9a/eCagVa2yjyuA/+AY+B/gHKd5Z9x/lpwO7bHnd5EM7K7t7xG5ta5P0/e1wnC+ dfpaZj/L7GeZ/TD/uTUI0aBtD0AX0KCiucq/uBj/AC t+Xhb/LMY/+KpwiXzHQl11us/gtw//L5e4tBofZ0tGLP/kpjw7A9aX/J8ISb2raXv4jKJ/YFwp/E/FnB v+Z+WyiKN9LC5w5bsqYsaB+Z/dsLt4i0tS0r/9a0FvbMVqtgaknxnpEqep9buZ37kPB/wP8RGG/yEOw2 U/oM6uA0h7UngFs9608J+MdnJ4I2Nqta6/thn/4O+K fzb8D/EyXPZDjPinztMVP2/4r3g3CudC9pLTF9QhR/8TH4yd/fnTyv2A0nwSblywoGiCk/f+7KeXrVbb mW/IWX+v/E/dxqtuk6zQel6eR+V/FEhEv3l+LBsdz5uE6N//wfal4s54aSUM/hV8hQ5jgG85/A/+vZZ/ 3vA/+UhjFcP7Ls2BiL/rgD8ZIl+zzf9s+B/i9nKJG/ 6HeGzhaVj+Zy89v/bS82vD/yOhm1aI/2Sqp9Ryz3xcy0ybf0soo/bW+n0frd/3Uf5ws/6C9S8FwUY/iJ U/2SezZk0Eo8M/IT4Pn4/qF4fxz/gXJaFWA4Dr0WlnrtdeDvo/H/if+pwH/fv6KJlb3vufZj8iWSRzwA m3cOs4Hr22Wc/r74VT+bES0DhuUb9ATr2WgCee+Lnj +IqfO/5i3WDknlt6m/wPMOpfeC/xNjvh7o/4DKh/4X4i/0Os+vtB/gf/Mikki/gI9wV/83GC695BXD+ilw Iyjp7WH1xrB5pYJGs5/vzurvB/lnYuV/juV/juV/juV/hannah/jq2/vqN0hRI/wfmR/yHW+utg/AO6xtqR 98zLg7J/0+kagd6d9WtUne0A70/ZDs2oY30eod2dqU Ss9dfh+et3FZH8JEyEMG689+xnm/1g/JX4CXx9bKw7jWq/1DEW/bu9V5mnk/iRJavFX2qpeRvS4C5O/A ++a0M2QzdWyrQYMoSppihvT0OFP5LvWdVGCEr8PAqkjwEJEztw2h1KcNMs0uhMH2URg6Gm5iPkTD1jpu Hr9OG2fKvIWPtJA7f8eCkP5t2tt6eyyXouvi+8iDG1 y0R0UUQsoGRF6bcwRYYTbJB7CiiVht+uZrJJRgI26ZTV6XKzhBuz+NN4ZkgOFppIfRozvbfvbGsFpe2O YrrkhzHo8Ac4VKcMVzPJjEsVEEozqcx0A3a3BrtfbF4nrcim9fOhVCI9bLgyZXTuaSQUpbKl7b8BP6Tl MO7dddFxeCqmEdn43S5LG+f64hFb297tm4jRFEo54z sdupLsVHEoWH7uklzKI8vJYaLA78hiOpv5Idlqq6kUP3s2MnqPpa2RXaEtR/GwB6AbtyEeoSZFC6LYaq tsBeUYU/xN9ra5c2zrH7XKNRbNtAcxkOamhnWhqM4nfx3YbQXK1SdQjjoEbpU+ZKWTJ6i/4OSlv85pn4 3jhfoBGVbmgajfOnlQROmLMgKJdLrFWAnIC0YFC0zL odfSPtU1FqIW4HJbZfVUUlkb6NXhZ6qd0fOKthQfLvyZKxXtA4ygRLH+ECDqROZCo3fgrmRZDydqQsgb nllZfuG50yWTyMWi6h1+hrkRbrE5GmLRnecRE6UfKX/BOiAHKS7HsQMIT5i6S33IQY/rj6PSR3zE17FJ kYOWMkDW3kTTCoGszacfpA4Dpgdy+fGgQPuSPYwcI4 eSVrdztCr9A70EDb1ZU/u+nuV5Tt1iN9UBNgqGfcFolF6EGYsLRLiOATIyvdph2zoxabnfeY5wsBAIKE mNMOlA/NFu/xFvX/U2yXYi/ZLJ0NnaRlyriIOtB1XStOqWMLnOB2L0LWHnBA8Y7SkYS9jWIJo1sO7YfZ nKuS+G5L5gDwRnsQodLsY/4NCf1kWRMBEq/i2R1+Jn R3Awqlhc3B9Ay7qMQ1ORZYpYPaH3QhtCyncQlZS2KenJcfnAvR3g9ibE1NZnpXllP9tHo3Gys9NhbU02 UlAvvJo43qAyO4VQrmLvQUioBf/7G9GPxH+4BQqFqAkBKh50QAd/VTOFzU0k1uI3Qb4w9hzRqB6/Hvi3 u4VE8ntpdkvwIcG/S1JHG59UNCFhWWZEWDqkgPAMEI Y++Ja3DuV2JganzN8YKLjxIusIvBkF1yPWgJUOpLV9FNSwRHoHMJXH8SCuv9mZi9GyH1yoAtn8T98ZMV veVisaZU0k+Nkbw+PSh9/5KNUKOeD0OKWynvEQfNlDy7j2BXdQYhAXDiT8pE4m7MIIsIoMpo7u7eA1Oo HdBtv4S/tEWCPzWTqrGFFmpTGCLnQzng8KtXi/8KlD +aicPCwBBRiRtdlrbd1SZ0ZkgG9g3j9+Yiaaf4R7Ijv2vN2/4Hjl1dSA1Ko4/xh9x0bZSwWK/Vvz+K15 /EXNHQWuir92lrYZeItU05+Ukl+dQPn3J0AI3iMSb1TI8UXzUimllX5/UVJ+WTLMupfFobETTcQiJu4D +CaXzzy2oQGkmh5Ya9zNuznJ6sy1M/zbJRW/XXKMIH 7jCRC/4HzpJhLazlphY50+dgSUHIKCXsE7P0Cp7idTtZJC7gdM4z2VOU2PloNWcr8xPfAYx5sfM1Qnxq vzOteCdWj7N8Y3a4PCNef9TvdmoUBbahBbLMxPPKMPZKrKmKl0f+3u+bdum/AwplZkOZEOAmNqHwkp+T DdZaF9BMncXykIPQ5qkPkNVHa6UPW7nLmsWOjhB1qf TtnRvbT6x/aCXY7rVr42d5SE2/uDtyoCQA9iao3jbq6uuq5cxwguIfo9bBqg9mD58suI7x5kw9+jUJ0n cP/CQVgUSwQt82lhX2tvQu2J7hJmCKSB8BVliT59ErKp0Nt31eemvb+3XHWtFRcdP5MtJ8LoUdYGLq8b TO3b/Mn900kh2TL96aznflBXJPGlAALDKtcZlPYKgu Jjat8/35tjnKIie2h2aNAXZR9nf8ZfKRx2DbRM/zZIzL91+De4zg7/ofaQFZtc2r0f/4ZYucO/IYru8G +PJEoBmWLCX1toTzUpE3dVOow59GugjQtyD688CPELHlxlHJPPYomcMcz06AQdczZdOmTmgxL9K+rcBw 89G2BEIXvuPq4ZmS+A0Tkx8k8pVj5AFXN6hFRvs7r3 S88Paa8NikwpI23Si5ZouJKzCY0If26PZuTI8/nOHqEkc42T2S5IyCB/w6PjaZSrtNw/d1GcndjWyV5A 23vlZ2+Tr1lnp9tJ8hnkU02XNjhlnuEadi91GxzzCTWLMv/4Tyj/tho+Rww659sEf+3QXckp4oE6L45l HSMU58Q+xIdbyTT41IPEgeOe+Eib5yLhCmmY2G9vyW Erp2OH1pg5O2H7vBE/ZaJmaV0mfq4h1QLXbq2mTZMp1jt3J+ltddhV1Wz5mH9GiLg+qcjVM3j5RYcYb7 41Q1tNPep2PZ9HDWHD7hoCI/daCyQ6rJlROBLIzNtmxP2c/yiuvyarxEUr0S/KsUuBwWDm39CPT1O3H2 k4MKb2/vPa0xwR7f88MM9iSkqLjqQhdw0Di4r1N1yR rMI8AtAkil9rUPN396lrMkBZwRPqELeZbirI2obeL6HaXEEvEdUruRJTV2unN8ksk46O59zZx4Rsw+nx 2/Y4tzk5yNv6rOm2Ie8+m74+tuZ7E3vvA2pDHmkOlF/v8QapfuaIkF3gas8/JFqgX8Q5VvVG4IZC4lxM 7i+fmO2X7kLm4v0LkryTycpOnXN4JOP6X5Z7XE6+no dZvndOy/bWccdXzUt0XFs0uzTRaW+7xOoLFOIjXKES/47t7wxkb5H8EcdHIK1zpc3LGbxx33HWs1fPtL RepH9cn00auxlhX3sqM3srL6qlT4baY8rmh6rmkFZi8SS77syllVSsqdNZhvxDoTQNOLAAIx3Rlw8t08 AB9lpX6nN6b2gaCFi+dIAUhZ3Yg+XSMJp4PIgL/u0S tBmpIpgMDJIFqpl80+P2zfZlb+blHxK8jP6/z8KRT8s9wieaIUgieh+I09PFvDg8Z8r2byZZ1wZ+q9nz dLF9A+5b0/0eTSsRXigb0sxem+7SxTdIZ2e1RB3Zx2ADn6AEeF+u5I/l/m79n0tb20f9v+DduXe9j9ip 0IqK/ouQMdLf8g+sH2Jfjgc+Pl2+Qt1a20nn3jji0u QeIHrw54YW/d/Rd4aZYtiOua/KO0rgz+FMDCY7yYZ86L/eYS2X2NnqQiwNut0X/nBR4pcAK1vARLpo6S +wFq1LiZw+40YNuk5azd9p/VNXJsstQW8Uz6qp+v08Pf9Rlr4na98Oa1hv0wXSfb/hsP80pzxyiEhpj6 cGGxBrc5o297P/tty/Le9+kMx1hka/VXADwCXhxPIh 2/4mGvLL26YQbWRLyL82qiZU2dvtpb/mQgXH3nNZIfipxADeu/ZXcvor7kt8BOZinuNZyY02O7bMbRR8 A4ek4Vo0X3tFzxW0UzTB3us7lQhH+6e6x56OSJZ5NnOPMroDK0GBKEZWR8k25B9RGTy17+7hRBvdMKZW gVOd2YwoiJs55DsBwoKyn3MA7njsrsU894D7rr9DJB di+u637J2D4To0oVloFkYdbzCSeV/bnn/i6s2gidJLbu25m9GcGS7dXeX0BydovR5WBMOzNo6gmk6Xjw 6MMilloMSxHgdSphSbi3aesu1+fc4Rb0s0pz/9/P409HP/od8TN5xh1dDi/dvelg/NT8glXNUXKM1QC9 /N+imJPU/6oC6cvegTzqLM9/Ox5+z1eKS9mc2O0wij TO29B+ejXXIYUyuifXIYU/kZnKsddnMAaNBTp61ajT5e/dtx/ylI3nNyRTvoR7OW2S0mDPU1U0l0ylX7 3cMKbKxSxalg5bow2miqcvf9kxQ8593a/ahUfTLidsl8RDEemq+OTk4Gfme+E90RRt5+2Q1QwH2Y2PXS 9SHH9W/cjACnelz/dlz/dty/zCCYSX63AHhEvoEu+L iWmy2rzO/wb5csJ+Qx8ckSxSMF97jD/dtx/0ya21r98KhgEwNowXh5aTgVE8uJopuKkkK+Av+GWOzAvy YhNOi6wMas+D8Tw60uNRlbs7aPsj62FXOwq6fid4U2W5mLwklAbcFikYenpeXF/b3T8rrAlSw6380iI7 n9oj5j2n+eEyYuAtx6tBaBIoRrH1GMAGhTFNNBsJb6 caQW9oSnV0UI5gko/2meiyugSKboT6kpZT455lRLRTXplPatMbqldeqcyuWBlwkVZ/QhgyRTJyj/nisreen vOd7OswJjz2lk70hd4eK8xNITEmwqnm/mphayqMa9l4hHig1u6qTE7Ram5S3Qs5zv6YINyxvocDBtV9l xbQQ4siJraF95dRc1a5hbh4YMmk/rqWDuk3i9ggLdu sX+QEtv2ao/qRgDZsga9gk/BH6Zg863pwZ/KeGuMI8jMpeH1KvcMJVc+19xu1bh0NS5fE07xj0gzW2Qh m5pOX3Dpz/YUytiNoXJPcvXLKcKP+POpSqxqVDE6GqPOSlqVroNq5DWTRVSFtw8w2zPVG8GLRmW2YaSC hT+95j/MUvurT5jqxShOJ1GmvDVOC3AZjj/Fj+DWNq 25RCw0rAwB/m413UV29m6nUSIS+v685UiS/5sfgtw+J9GHK2Dgv+H5O7aRDOa1Qo/cJ7pgKB+iqR1BkX +wtftmWtafG5Zf1G4tIK4be0/Qt59y/o5EgS6cvG5oOim0kjTQy1feErP6lSkjTuq+7eed5BiFvkkf0m cjtjZA2X2amJj85zGR3LxYfbspV7WhcP4kgP/QskXf mQZB/1X6AeQ070j6t6Vfa+tfvRo82lN68FFgC3v8IS2INWp+1tuL1Z/k7J1l4T8vC9tW5vSH8OxRb2Mj zvvdhR8Iq3oFdy3/NwnaPrwpF0I0k4l0xjm04yRMj2dyE343zIH93yBkSBhE3tjl0D/YWQ3eqAV9j6Ud C/zTA98V8grmR5v7M/ycBi6kpJsZlluSvxVWKoeUN3 2WGVD+CzdW2dYz6mtnD0BcLUYHcyY+9XH4lDDKVz8w/eOHqvsZ7h+af//N2/ASQZ4jF2CHM/wiTR/qxM 68Ka3L/QSKDvHSDHCPzbJeEknWA/HUl6NuQ9mqw4BNtmEEcseOhq5Y+XhJNcRpqT/hu5Qylw5T+d08my q3Q4fWK+Ub6I7t9sg5H/vzpVX0AiN+UcQfM9oNfx1A COEqGc2ErqdGlaA1kiE2gQoR26RVDEpyOJ+qe8yxk9FWm3r+Pphwcr4kyzj2RIz+WjXt9PbS26+72k2v 3Sdip+Mdel4H24op3/gyT7f4kp9wuztuDjw61c7dP2jGgPVi6z1Rb/auJ4If0W+VuME3xd2d0SgsK2mA 48uX/hkmME/m9GsX4llSSoYhxx95R0wGPmM6/k/oX7 nmW/U9u/eJuOkDO0Du6HQXEUmm3p1y/n61r0Hpnulg8hdtT/mtqn1U+Gvf23zhG+rELbnQL8uqJ9hNca 66+5f+ZU8IMAA5J5FcvQ0bMo5n/FvDk0WfR8hy/DeVOxmAOVEgcIZqNnZbJRjDMscST31WzMrNOBMzug i4cDCaTlBRvEfzeRvw29pNc+K3ugs1NAvrx6s+ES6X vTG9+yf75Bx77nvm4kwc2C+p3V4K0Y4pgZbml57yfJuap75av+ax6/NdO/WaU5sOwtV5mf/4KNqRXpTp RyrWciVS3MoajqVAujQw+fNl+fNqufYkytSHcyP/aeZfcN/g2/wFfOYiA8Y5O8/tLa4g6X/5bN9G/ZTP +GrfS10Innn992sAWwEtWT1T+hNg5v8t+a+7fm/q25 j2wCHA3k7WlvBbv669/N/Vvbbm/c65yGDhRuBrkk3FPW7A6ixZ0HKSbz1/nYfTtht+j5jE36l+P2djR7 JiKaBCwftng2wusSUDM/JJyoBV+yh/6n9RxjR6b9+rg77KN/D6D3CzrgE25yvHlhN/00u/k55xDWdI+B I2/RS1YlcEQ9gy8L1mxiV0KkaUyw8vfqCo6Cm3r4P9 ImgpWfMMgLuaIxBnXzsejdSRB3EEjaig469/5B7IWNsqr/bFV0JUxrjXaAvqqnql5LI8N6U4i3f7z3/9 Y9/9f5RdIu1y6phj8v8a4/HNfrR4Eu+ock9y+GLM24LZTGRtHcBK8iy/4h2a1/TDysS4Tz+odkt/4h2T 1+69Y/JLl/gddh/EbSnZh/8/89TSDBOyFUYeyKwMz8 4G+8DvQh/IIr//bPy07w7tApo61wCbzbj7GDH83U4gAt6rdhmoTL1V1kS+F7Sh/Na6C8l7WeQy8Kuzzq b5u/LHx7K6lZKnA6rMu/z+c4En13zFPh6C2KNavdJ7YcJtq6zaO/DDIoYZZyrEt2B1s0o+7+bbh/G74+ 9e4HW0fLh81Yr4WHq10/govvxokxw8TuorS4jvh0Cy exxdHod9MRMcShb9nZPmA9Xz9BP/pZm5wtde/JYfreZNv+WyveZ6kuotE2ERkPT1SxEM98HOs3GiSGUT lfFQvpFGsF81rjxG0fVdnYCf8p8nRh50+LdunJMaZWRPoQjKm9/utjxkf8zjExtlNADxym/fUYUysSei 7B5K5oYz5TF8uac3Z46TSyVEeJ57YpSFt/hX8hx5iQ 9p8mm/vz7qC+jIs9O3bfh9+CNXhLdvi/xO1tSY+UbPJ/bqzMQOf402jkrygKu/SW7PR/X9H+dEK2WjqF +35Z2/Ihg+NGSNQ/EARfHKq8Jjs/MU1rJRkSsc4q3MkN2JgP1DbN7XEgkvpfes/SYNLytpBj7s4xOroV 5yr5spznsH3+nb4+nb4+nb4+John Paul/r7k3d2w7/zSn7T /HnnwCAjy3K6NaYpR2d//7Z0zt7+d2x9QW/g9jah/uhr92+Gp5DR4O7y6YMNU4aydX0Z/l3eN/Hu/nJw p/GjQvePs0A02l/cKnwaV6nkfuTks8f9vi+V24aQngW0bFeF94GreV9/KK5O3Sd3G0UIbtw33u1Rp3Yy 5a3MNH+OfeRk6VefpxrC5gi+FeGH//mtrD0/DX0N7x e+k8R/jn1R6O/Y7/+rD1ut5Qq7lznh11meWobJ1bcYj1Nck314z+0k9Xh44uD4Gn/TD/GbrtS5wSmrfV F/s01Rtcvh/7D2+Mo/3az/miFqht817eq/HcosOyawZg5k/Ce3/2w+/o58J+oWLhn/08PHp82q002Y/P f/2yHoV/1sQo3D3JS0girJ/zeu/42b17002+vtFN4X ZxYpxsS4EocUywlumQYvnMvK0sZ/Qiaqxi6bJ+wj9/3OmbJavzAGg8w+S90jSj4w/93ON/9nPxNnzW/Y 1UleDheL+7duVbh9TtWe1AiuYo8Z1+Jt2SD30IPF56+Aj/nNPD5X/KDyT8D/9e/od/92jsw2hgKueZv/ 10HH+S5I7axYg+i1y8C1YpZU0H0x3/g/PD/xCX/+k3 Mypc/qczi/bUTdRo7mOX/+T1VKBSQ9BW+Gc/+Y3MQsBfh/1cfITL/2xixoWdr57+fWXyntljO4yr+R9+ nvI//Jzlfy4+wuV/Lg7DZT/ETfen/A+/0/I/Fy/DZj/G5Zf9n0r+8mPR7bw4nf6Ssx/ish8eU/bD95b9 8O/BrUnX6UUy/2XsNictb8r+wG0zWwn2h7U/PM80rO pMujEkWefB2xz/u7InCuzt3zqJ8f/3k5jC4rBo7V/eD9fe0S/4juB/iNNw02+q/M/DFyaKm7Y/fO82fB 5u8D/KNScWkHb49b3rlNciwXOw4T+D/6l/sauJJ6D/IU7DZT/Esp8G/0M8DS/Znv2Ivz0O/7TyiaASP2 UyvSys5HTb+6e7ZD9b+B/cB/uj2YFp7s88hGV7sXoh JnyE4X/qe2/kT2U65jLH/8NRtvA/+Y9jah+W/0grx8lL/TT4H/y74H+Tg9RFA1OnXs7+r23aDr9xnl3K /ch85VmobU0+Bxj+hzgMp+GyH+L+nu+Xr3mILFn4a2vgOPELYTAdrCk+B+eH/yFuhrvhsh/alvejb4vd WeTyO2UhUV0b1gl6x9grCA87R79dsK2WZ3I//udrmH ud655vKb/13LgrX0/e+H39/M/DZUfE4i+Hx/qqU9ZZ5dK/Fv4+0kekSi24sOCN5n/F4B/H0XSZiwSgCN jHhl0Vj/rHMbW/AsE/jqllDFwpdt7/yrAzDqwE+2DP8S0ts5lk84jq6JxAtp+m9U8vsu20Hd4xAfygZ1 TL8B46/qjq8Uzh2Uhe1KxjI3mwyOybh3bppm01/E/9 tro9n32+p8P/EOfzRR3+p2rp9xMtu8s1Qu5nozOthp+96/iXyh970a/d/E+H/gFoO2jk+APn41d4/9Ph f3B+i3+6xT/d4p8O/0Nc/jwAhf5pPcuF/5Q/7PA/Fad1+B/ieDFhh/8yhm73De3qeJwpvfwL+A1f6b83 LimieS2v+LmvZljxc1+Kn/uahhU/d/vy6LQIT34cv9 7xTzf/0xn/LW5UvmlGrs228k/w406qSaYWhd/0n27Qq86Tu7NnlSCm1P/xenFgR/xDfF5+YyD+IQ7DeY SbYT2/ToWe9iV27Rr4UAM+GM2Msap3kmEh/hkW/ihEq5cDC0BoJ93rmOa/AIdhxD/A7T3TB/dL1otH4/ Q7dmleCULv5FJ/o6Vhxc+jqoHiZ1Y9utB/M+B/iGU/ A/6PPVnl6uAg3Wq1F5yaKvWp+cM7ONcyN6ZhK9YlE6f6WUGuMjkW+MfQ5vUw6nCQdbfRx5W7cok1WwTB pWc2pzC6Gb0vr5qRw8Ug65J2db8C6/cB/1O+aMD/MBmZ5YMTC5lgzg/wPPI/w9ZfA/1Fu2rY5ta+h7js h7jr/sD/1HSovG8IbjtpHegj4bAn+Z9h+Z9h+Z8B/0 PcDSv/MxD/RJc50nxD4/K8eUHFA8lmUTRHjJi5F045kx808LsTe/Oj+UhE8oxOWSm3c+mb1886T+zsz3 04YQ4jGa7sw//vv81hIl+8Ij7Pz/36d6VWP/zyqaRq1brHHSaHU1r/i+YaZZuyn+lgr7ov9meaF0meoZ bnuAX5lUfkrx0fymNVr/iX5dOXpBQ73zP7ISI/rnhy wv/g8zP/XNdl/hw3Co3wRdhZ1tMe6ElK/3A4kN60poq/471d+cQUVR4S/od4Glb+cML/9FhUG17aJ2T+ p/7t8D+4P1x/4e/a9XhAN2Dkp1/L/9eeC9R6wbT/M83/TPM/c6p+MeF/SaMsaVwwORtR117VY8O2h4R/ Kdug/wHuhsv/4SntzIbN8Z6a4QP/XE929S+N44Bzb2 Frsrtns6ey4hZdmkH+B58N/fi5QK01KssQy33Zp6VqO2KW7HY5YWgVhK6iksK+wfjIj+Vk0CU7eX3CVq 1vu7DkP2vM0k+Zviz/syz/syz/s5j/qfda/LMs/lkW/jnHL8C0KhM4BG/eVQ4lGNyDOgfBb/2+Uuv3hf seovsW4Q+l7e0vyE5bFui33cIq8H/KDyz4H+KRwtPw Tbz0iBfnCofYa3wQnF0lo+v5tcz/LPM/y/zPov/Bebbho/uD+heuhfoXceo+cM0Cj5UD/yzGP3X/mf/B 348w8z/AYTgNI/0SQSzAx7H/iP7w4g43+4H/5dPV5LVVc/MAf9c7ALCd8W5plvyWPAdD3Lcn+GdZ/LMs /lkW/kqVS8Fkz5zeI5ArA72uT79lV0+to/y9yi3Iq9 D/4HcN/0PcDSP/AzwNl/94yHjz43K4su/MPwPL/2zzP/tPKEdE65V4vqrz9UD/3vQ/jY60eas+wt/TsP KHG/1CcLgjBASjaAc6jd0OB+5Q/John Paul/hCcduPVG9Fy1ZyL3/A6wlU/iYybMoRaHjsZjwsSp3a/b/of/H [file] WktmUj8ylLQ6JGAiWzbLKe0Iq6IxifJ0qlBxJuH2AQChStMdMM6G ID Date Data Source [id number] 10/27/2019 07:45:19 AM EST [address] [address] Name: JANEEN JEFFERSONDOB: 1945Sex: FOrdering Provider: LEYDI MELENDREZAuthorisandro Prov: LEYDI GREGGLERReferring Provider: Procedure Performed: XR HIP COMPLETE RIGHTExam Date: 10/27/2019 03:09MRN: [id number] Number: [id number] Class: EmergencyAccount #: [id number] for Exam: right hip pain, fall last nightTechnique: AP and lateral views obtained.Comparison: NoneFindings: Joint space well-maintained. No fracture appreciated. Visualized pelvic bones unremarkable.IMPRESSION: Negative study.Report electronically signed by: MARCY SARGENT On 10/27/2019 7:45 AMWorkstation ID: [id number] Name Value Range Interpretation Code Description Data Elvie rce(s) Supporting Document(s) ID Date Data Source [id number] 10/28/2019 07:35:37 AM EST [facility] SPECIMEN DESCRIPTION MIDSTREAM UR INE,CLEAN CATCHCULTURE RESULTS NO GROWTHREPORT STATUS FINAL 10/28/2019 Name Value Range Interpretation Code Description Data Elvie rce(s) Supporting Document(s) ID Date Data Source [id number] 10/27/2019 07:37:19 AM EST [facility] Name Value Range Interpretation Code Description Data Elvie rce(s) Supporting Document(s) COLOR [facility] APPEARANCE [facility] SPEC GRAV URINE 1.021 (1.003-1.030) [facility] PH URINE 5.5 (5.0-7.5) [facility] LEUK ESTERASE (NEG) [facility] NITRITE URINE (NEG) [facility] PROTEIN URINE 1+ (NEG) [facility] GLUCOSE URINE (NEG) [facility] KETONE URINE (NEG) [facility] UROBILINOGEN 0.2 mg/dL (0-1.0) [facility] BILIRUBIN URINE (NEG) [facility] BLOOD/HGB URINE (NEG) [facility] EPITHELIAL CELLS (NEG) [facility] HYALINE CASTS 3.9 [LPF] (0-5) [facility] BACTERIA (NEG) [facility] URINE WBC 6.6 [HPF] (0-8) [facility] URINE RBC 2.6 [HPF] (0-3) [facility] ID Date Data Source [id number] 10/27/2019 03:36:47 AM EST [facility] Name Value Range Interpretation Code Description Data Elvie rce(s) Supporting Document(s) POC SODIUM 141 MMOL/L (136-145) [facility] P[facility] POTASSIUM 4.0 MMOL/L (3.6-5.2) [facility] POC CHLORIDE 106 MMOL/L (100-108) [facility] P[facility] CO2 27 MMOL/L (22-31) [facility] P[facility] ANION GAP 8 MMOL/L (7-16) [facility] P[facility] BUN 20 MG/DL (7-24) [facility] P[facility] CREATININE 1.4 MG/DL (0.6-1.0) H [facility] POC BUNCR 14.3 RATIO (10.0-20.0) [facility] [place] GLU 114 MG/DL (70-99) H [facility] POC IONIZED CALCIUM 4.8 MG/DL (4.6-5.3) [facility] P[facility] GFR 37 ml/min/1.73m2 (>59) L [facility] POC GFR AMER 45 ml/min/1.73m2 (>59) L [facility] P[facility] GFR INTERP [facility] NORMAL KIDNEY FUNCTION OR MILD DISEASE - GFR >OR= 60CHRONIC KIDNEY DISEASE - GFR 15 - 59RENAL FAILURE - GFR <15 Est. GFR calculation based on the MDRDstudy equation, which assumes a steadystate for creatinine. Est. GFR should notbe used for medication dosing. PERFORM LAB [facility] ID Date Data Source [id number] 10/27/2019 12:09:28 PM EST [facility] Name Value Range Interpretation Code Description Data Elvie rce(s) Supporting Document(s) FOLATE @ >20.0 ng/mL (3.1-17.5) H [facility] [place] ID Date Data Source [id number] 10/27/2019 12:09:28 PM EST [facility] Name Value Range Interpretation Code Description Data Elvie rce(s) Supporting Document(s) VITAMIN B12 @ 1507 pg/mL (193-986) H [facility] ID Date Data Source [id number] 10/27/2019 08:54:19 AM EST [facility] Name Value Range Interpretation Code Description Data Elvie rce(s) Supporting Document(s) TSH,ULTRASENSITIVE @ 0.591 mIU/L (0.360-4.170) [facility] PERFORMED AT [address] [place] [address] N [place] [id number] ID Date Data Source [id number] 10/27/2019 08:54:19 AM EST [facility] Name Value Range Interpretation Code Description Data Elvie rce(s) Supporting Document(s) CK 94 U/L (26-192) [facility] ID Date Data Source [id number] 10/27/2019 04:35:08 AM EST [facility] Name Value Range Interpretation Code Description Data Elvie rce(s) Supporting Document(s) TROPONIN I <0.05 ng/mL (<0.05) [facility] [place] Less than 0.05: Myocardial injury unlike lyGreater than or equal to 0.05: Highly suggestive of myocardial injuryCorrelation with rise and/or fall ofserial troponins, clinical symptomsand ECG changes is necessary. ID Date Data Source [id number] 10/27/2019 04:35:08 AM EST [facility] Name Value Range Interpretation Code Description Data Elvie rce(s) Supporting Document(s) TOTAL PROTEIN 6.6 g/dL (6.4-8.2) [facility] ALBUMIN 2.8 g/dL (3.2-4.5) L [facility] GLOBULIN 3.8 g/dL (2.7-4.3) [facility] ALB/GLOB RATIO 0.7 RATIO [facility] BILIRUBIN,TOTAL 0.2 mg/dL (0.0-1.0) [facility] BILIRUBIN,CONJUGATED <0.1 mg/dL (0.0-0.3) [facility] BILIRUBIN,UNCONJ. (0.0-0.7) [facility] ALKALINE PHOSPHATASE 112 U/L (45-117) [facility] AST (SGOT) 35 U/L (11-39) [facility] ALT (SGPT) 42 U/L (12-78) [facility] ID Date Data Source [id number] 10/27/2019 04:12:19 AM EST [facility] Name Value Range Interpretation Code Description Data Elvie rce(s) Supporting Document(s) WBC 6.0 10*3/uL (4.1-11.0) [facility] [place] RBC 3.15 10*6/uL (4.00-5.40) L [facility] HGB 9.7 g/dL (12.0-16.0) L [facility] HCT 30.4 % (36.0-47.0) L [facility] MCV 96.5 fL (80.0-95.0) H [facility] MCH 30.7 pg (27.0-32.0) [facility] MCHC 31.8 g/dL (32.0-36.0) L [facility] RDW 14.6 % (10.5-14.5) H [facility] PLT 207 10*3/uL (150-450) [facility] MPV 6.9 fL (7.1-10.7) L [facility] NEUT % 55.8 % (35.0-75.0) [facility] LYMPH % 31.3 % (16.0-52.0) [facility] MONO % 8.9 % (0.0-8.0) H [facility] EOS % 3.2 % (0.0-5.0) [facility] BASO % 0.8 % (0.0-4.0) [facility] NEUT # 3.4 10*3/uL (1.8-7.7) [facility] LYMPH # 1.9 10*3/uL (1.2-4.8) [facility] MONO # 0.5 10*3/uL (0.0-0.8) [facility] Eosinophils [#/volume] in Blood by Automated count 0.2 10*3/uL (0.0-0 .5) [facility] BASO # 0.0 10*3/uL (0.0-0.2) [facility] ID Date Data Source [id number] 10/01/2019 01:13:57 PM EST [facility] - CORE SPECIMEN DESCRIPTION URINE, COLLE CTION METHOD NOT SPECIFIEDCULTURE RESULTS NO GROWTHREPORT STATUS FINAL 10/01/2019 Name Value Range Interpretation Code Description Data Elvie rce(s) Supporting Document(s) ID Date Data Source [id number] 09/30/2019 12:35:20 PM EST Laboratory [facility] [...] - CORE PLT 255 10*3/uL (150-450) Laboratory [facility] - CORE MPV 7.0 fL (7.1-10.7) L [facility] - CORE NEUT % 55.9 % (35.0-75.0) [facility] - CORE LYMPH % 29.1 % (16.0-52.0) [facility] - CORE MONO % 10.7 % (0.0-8.0) H [facility] - CORE EOS % 4.0 % (0.0-5.0) [facility] - CORE BASO % 0.3 % (0.0-4.0) [facility] - CORE NEUT # 4.0 10*3/uL (1.8-7.7) [facility] - CORE LYMPH # 2.1 10*3/uL (1.2-4.8) [facility] - CORE MONO # 0.8 10*3/uL (0.0-0.8) Laboratory [facility] [place] - CORE Eosinophils [#/volume] in Blood by Automated count 0.3 10*3/uL (0.0-0 .5) [facility] - CORE BASO # 0.0 10*3/uL (0.0-0.2) [facility] - CORE ID Date Data Source [id number] 09/30/2019 01:54:30 PM EST [facility] - CORE Name Value Range Interpretation Code Description Data Elvie rce(s) Supporting Document(s) VITAMIN B12 @ 1719 pg/mL (193-986) H [facility] - CORE ID Date Data Source [id number] 09/30/2019 01:54:30 PM EST [facility] Name Value Range Interpretation Code Description Data Elvie rce(s) Supporting Document(s) SODIUM 145 mmol/L (136-145) [facility] - CORE POTASSIUM 4.1 mmol/L (3.6-5.2) [facility] - CORE CHLORIDE 108 mmol/L (100-108) [facility] - CORE CO2 30 mmol/L (22-31) [facility] - CORE ANION GAP 7 mmol/L (7-16) [facility] - CORE UREA NITROGEN 17 mg/dL (7-24) [facility] - CORE CREATININE 1.35 mg/dL (0.60-1.00) H [facility] - CORE BUN/CREAT RATIO 12.6 RATIO (10.0-20.0) [facility] - CORE GLUCOSE 105 mg/dL (70-99) H [facility] - CORE CALCIUM 8.7 mg/dL (8.4-10.2) [facility] - CORE TOTAL PROTEIN 6.8 g/dL (6.4-8.2) [facility] - CORE ALBUMIN 3.2 g/dL (3.2-4.5) [facility] - CORE GLOBULIN 3.6 g/dL (2.7-4.3) [facility] - CORE ALB/GLOB RATIO 0.9 RATIO [facility] - CORE ALKALINE PHOSPHATASE 131 U/L (45-117) H [facility] - CORE BILIRUBIN,TOTAL 0.2 mg/dL (0.0-1.0) [facility] - CORE AST (SGOT) 68 U/L (11-39) H [facility] - CORE ALT (SGPT) 64 U/L (12-78) [facility] - CORE GFR 38 ml/min/1.73m2 (>59) L [facility] - CORE GFR ( AMER) 47 ml/min/1.73m2 (>59) L [facility]o [facility] - CORE GFR INTERPRETATION [facility] - CORE --NORMAL KIDNEY FUNCTION OR MILD DISEASE - GFR >OR= 60CHRONIC KIDNEY DISEASE - GFR 15 - 59RENAL FAILURE - GFR <15 Est. GFR calculation based on the MDRDstudy equation, which assumes a steadystate for creatinine. Est. GFR should notbe used for medication dosing. ID Date Data Source [id number] 09/30/2019 01:54:30 PM EST [facility] [place] Name Value Range Interpretation Code Description Data Elvie rce(s) Supporting Document(s) DIGOXIN 0.6 ng/mL (0.8-2.0) L [facility] [place] ID Date Data Source [id number] 09/30/2019 01:54:30 PM EST [facility] [place] Name Value Range Interpretation Code Description Data Elvie rce(s) Supporting Document(s) MAGNESIUM 2.0 mg/dL (1.7-2.4) [facility] ID Date Data Source [id number] 09/30/2019 01:54:30 PM EST [facility] [place] Name Value Range Interpretation Code Description Data Elvie rce(s) Supporting Document(s) FOLATE @ >20.0 ng/mL (3.1-17.5) H [facility] [place] Procedure Social History Code Duration Value Status Description Data Source(s ) Smoking 10/27/2020 12:00:00 AM EST Current Smoker completed Curre nt Smoker eCW1 ([facility]) Smoking 10/27/2020 12:00:00 AM EST Current Smoker completed Curre nt Smoker eCW1 ([facility]) Smoking 10/27/2020 12:00:00 AM EST Current Smoker completed Curre nt Smoker eCW1 ([facility]) Smoking 10/27/2020 12:00:00 AM EST Current Smoker completed Curre nt Smoker eCW1 ([facility]) Smoking 09/16/2020 12:00:00 AM EST Current Smoker completed Curre nt Smoker eCW1 ([facility]) Smoking 09/16/2020 12:00:00 AM EST Current Smoker completed Curre nt Smoker eCW1 ([facility]) Smoking 09/16/2020 12:00:00 AM EST Current Smoker completed Curre nt Smoker eCW1 ([facility]) Smoking 09/16/2020 12:00:00 AM EST Current Smoker completed Curre nt Smoker eCW1 ([facility]) Smoking 09/16/2020 12:00:00 AM EST Current Smoker completed Curre nt Smoker eCW1 ([facility]) Smoking 09/16/2020 12:00:00 AM EST Current Smoker completed Curre nt Smoker eCW1 ([facility]) Smoking 09/16/2020 12:00:00 AM EST Current Smoker completed Curre nt Smoker eCW1 ([facility]) Smoking 09/16/2020 12:00:00 AM EST Current Smoker completed Curre nt Smoker eCW1 ([facility]) Smoking 09/16/2020 12:00:00 AM EST Current Smoker completed Curre nt Smoker eCW1 ([facility]) Smoking 09/16/2020 12:00:00 AM EST Current Smoker completed Curre nt Smoker eCW1 ([facility]) Smoking 09/16/2020 12:00:00 AM EST Current Smoker completed Curre nt Smoker eCW1 ([facility]) Smoking 09/16/2020 12:00:00 AM EST Current Smoker completed Curre nt Smoker eCW1 ([facility]) Smoking 09/06/2020 12:00:00 AM EST Current Smoker completed Curre nt Smoker eCW1 ([facility]) Smoking 09/06/2020 12:00:00 AM EST Current Smoker completed Curre nt Smoker eCW1 ([facility]) Smoking 09/06/2020 12:00:00 AM EST Current Smoker completed Curre nt Smoker eCW1 ([facility]) Smoking 09/06/2020 12:00:00 AM EST Current Smoker completed Curre nt Smoker eCW1 ([facility]) Smoking 09/06/2020 12:00:00 AM EST Current Smoker completed Curre nt Smoker eCW1 ([facility]) Smoking 09/06/2020 12:00:00 AM EST Current Smoker completed Curre nt Smoker eCW1 ([facility]) Smoking 09/06/2020 12:00:00 AM EST Current Smoker completed Curre nt Smoker eCW1 ([facility]) Smoking 09/06/2020 12:00:00 AM EST Current Smoker completed Curre nt Smoker eCW1 ([facility]) Smoking 09/06/2020 12:00:00 AM EST Current Smoker completed Curre nt Smoker eCW1 ([facility]) Smoking 08/25/2020 12:00:00 AM EDT Current Smoker completed Curre nt Smoker eCW1 ([facility]) Smoking 08/25/2020 12:00:00 AM EDT Current Smoker completed Curre nt Smoker eCW1 ([facility]) Smoking 08/04/2020 12:00:00 AM EDT Current Smoker completed Curre nt Smoker eCW1 ([facility]) Smoking 08/04/2020 12:00:00 AM EDT Current Smoker completed Curre nt Smoker eCW1 ([facility]) Smoking 08/04/2020 12:00:00 AM EDT Current Smoker completed Curre nt Smoker eCW1 ([facility]) Smoking 06/14/2020 02:12:00 AM EDT Daily Smoker completed Daily S [facility] Alcohol intake 10/27/2019 12:00:00 AM EST No completed [facility] Cigarette pack-years 10/27/2019 12:00:00 AM EST UNK completed [facility] Cigarettes smoked current (pack per day) - Reported 10/27/20 19 12:00:00 AM EST UNK completed [facility] Smoking 10/27/2019 12:00:00 AM EST Former smoker completed Former smoker [facility] Vital Signs ID Date Data Source UNK Name Value Range Interpretation Code Description Data Source(s) Hardin body weight 120 [lb_av] 120 [lb_av] FLORENCE Kruse ([facility], ) Body mass index (BMI) [Ratio] 26.6 kg/m2 26.6 k g/m2 MEDAUDRA ([facility], ) Body weight 155.00 [lb_av] 155.00 [lb_av] FLORENCE Kruse ([facility], ) Body height 64 [in_i] 64 [in_i] MEDENT ([facility], ) 5'4" Respiratory rate 14 /min 14 /min MEDENT ( [facility], ) Heart rate 68 /min 68 /min MEDENT ([facility], ) Diastolic blood pressure 70 mm[Hg] 70 mm[Hg] MEDENT ([facility], ) Systolic blood pressure 105 mm[Hg] 105 mm[Hg] M EDENT ([facility], ) Diastolic blood pressure--sitting 76 mm[Hg] 76 mm[Hg] MEDENT ([facility]) Omron, adult cuff/Ra Systolic blood pressure--sitting 156 mm[Hg] 156 mm[Hg] MEDENT ([facility]) [place], adult cuff/Ra Heart rate 80 /min 80 /min MEDENT ([facility]) Body mass index (BMI) [Ratio] 26.8 kg/m2 26.8 k g/m2 MEDENT ([facility]) Body height 64 [in_i] 64 [in_i] MEDENT ([facility]) 5'4" Body weight 156.00 [lb_av] 156.00 [lb_av] MEDEN T ([facility]) Diastolic blood pressure 80 mm[Hg] 80 mm[Hg] eCW1 ([facility]) Systolic blood pressure 128 mm[Hg] 128 mm[Hg] e CW1 ([facility]) Body temperature 98.0 [degF] 98.0 [degF] eCW1 ( [facility]) Respiratory rate 16 /min 16 /min eCW1 ([facility]) Heart rate 88 /min 88 /min eCW1 (On license of [facility]) Body mass index (BMI) [Ratio] 26.80 kg/m2 26.80 kg/m2 eCW1 ([facility]) Body height [in_i] eCW1 ([facility]) Body weight 156.12 [lb_av] 156.12 [lb_av] eCW1 ([facility]) Diastolic blood pressure 72 mm[Hg] 72 mm[Hg] eCW1 ([facility]) Systolic blood pressure 123 mm[Hg] 123 mm[Hg] e CW1 ([facility]) Body temperature 99.1 [degF] 99.1 [degF] eCW1 ( [facility]) Respiratory rate 20 /min 20 /min eCW1 ([facility]) Heart rate 86 /min 86 /min eCW1 (On license of [facility]) Body mass index (BMI) [Ratio] 26.60 kg/m2 26.60 kg/m2 eCW1 ([facility]) Body height [in_i] eCW1 ([facility]) Body weight 155 [lb_av] 155 [lb_av] eCW1 ([facility]) Diastolic blood pressure 62 mm[Hg] 62 mm[Hg] eCW1 ([facility]) Systolic blood pressure 118 mm[Hg] 118 mm[Hg] e CW1 ([facility]) Body temperature 98.6 [degF] 98.6 [degF] eCW1 ( [facility]) Respiratory rate 20 /min 20 /min eCW1 ([facility]) Heart rate 103 /min 103 /min eCW1 (On license of [facility]) Body mass index (BMI) [Ratio] 26.60 kg/m2 26.60 kg/m2 W1 ([facility]) Body height [in_i] eCW1 ([facility]) Body weight 155 [lb_av] 155 [lb_av] eCW1 ([facility]) Diastolic blood pressure 72 mm[Hg] 72 mm[Hg] eCW1 ([facility]) Systolic blood pressure 122 mm[Hg] 122 mm[Hg] e CW1 ([facility]) Body temperature 97.1 [degF] 97.1 [degF] eCW1 ( [facility]) Respiratory rate 18 /min 18 /min eCW1 ([facility]) Heart rate 78 /min 78 /min eCW1 (On license of [facility]) Body mass index (BMI) [Ratio] 25.74 kg/m2 25.74 kg/m2 eCW1 ([facility]) Body height [in_i] eCW1 ([facility]) Body weight 150 [lb_av] 150 [lb_av] eCW1 ([facility]) Deprecated Oxygen saturation in Capillary blood by Oximetry 98 % Normal (applies to non-numeric results) 98 % [facility] Body temperature 36.7 torrie Normal (applies to non-numeric results) 36.7 torrie [facility] Respiratory rate 18 min Normal (applies to non-numeric results) 18 min [facility] Heart rate 73 min Normal (applies to non-numeric resul ts) 73 min [facility] Diastolic blood pressure 72 mm[Hg] Normal (applies to non-numeric results) 72 mm[Hg] [facility] Systolic blood pressure 136 mm[Hg] Normal (applies t o non-numeric results) 136 mm[Hg] [facility] Body weight Measured 70.307 kg Normal (applies to n on-numeric results) 70.307 kg [facility] Body height 162.1536 cm Normal (applies to non-numeric res ults) 162.1536 cm [facility] Body mass index (BMI) [Ratio] 26.61 kg/m2 No rmal (applies to non-numeric results) 26.61 kg/m2 [facility] Oxygen saturation in Arterial blood by Pulse oximetry 96 % 96 % [facility] Respiratory rate 19 /min 19 /min [facility] Body temperature 36.61 Torrie 36.61 Torrie [facility] Heart rate 88 /min 88 /min [facility] Diastolic blood pressure 78 mm[Hg] 78 mm[Hg] [facility] Systolic blood pressure 127 mm[Hg] 127 mm[Hg] [facility] Body mass index (BMI) [Ratio] 24.63 kg/m2 24.63 kg/m2 [facility] Body weight 67.[address] [facility] Body height 165.[address] [facility] Body surface area 1.72 m2 1.72 m2 MEDENT ([facility] Body mass index (BMI) [Ratio] 25.2 kg/m2 25.2 k [facility] Body height 64 [in_i] 64 [in_i] MEDENT ([facility] 5'4" Body weight 147.00 [lb_av] 147.00 [lb_av] MEDEN T ([facility]) Heart rate 78 /min 78 /min MEDENT ([facility] Diastolic blood pressure 62 mm[Hg] 62 mm[Hg] MEDENT ([facility]) Systolic blood pressure 108 mm[Hg] 108 mm[Hg] M EDENT ([facility]) Patient Treatment Plan of Care Planned Activity Planned Date Details Description Data Source (s) Ascorbic Acid 226 MG / Beta Carotene 143 20 UNT / cuprous oxide 0.8 MG / dl-alpha tocopheryl acetate 200 UNT / Zinc Oxide 34.8 MG Oral Capsule [PreserVision] 11/02/2020 12:00:00 AM EST eCW1 ([facility]) Ascorbic Acid 226 MG / Beta Carotene 143 20 UNT / cuprous oxide 0.8 MG / dl-alpha tocopheryl acetate 200 UNT / Zinc Oxide 34.8 MG Oral Capsule [PreserVision] 11/02/2020 12:00:00 AM EST eCW1 ([facility]) Ciprofloxacin 500 MG Oral Tablet [Cipro] 09/09/2020 12:00:00 AM EST eCW1 ([facility]) Ciprofloxacin 500 MG Oral Tablet [Cipro] 09/09/2020 12:00:00 AM EST eCW1 ([facility]) Ciprofloxacin 500 MG Oral Tablet [Cipro] 09/09/2020 12:00:00 AM EST eCW1 ([facility]) Ciprofloxacin 500 MG Oral Tablet [Cipro] 09/09/2020 12:00:00 AM EST eCW1 ([facility]) Ciprofloxacin 500 MG Oral Tablet [Cipro] 09/09/2020 12:00:00 AM EST eCW1 ([facility]) Ciprofloxacin 500 MG Oral Tablet [Cipro] 09/09/2020 12:00:00 AM EST eCW1 ([facility]) Ciprofloxacin 250 MG Oral Tablet [Cipro] 09/06/2020 12:00:00 AM EST eCW1 ([facility]) Ciprofloxacin 250 MG Oral Tablet [Cipro] 09/06/2020 12:00:00 AM EST eCW1 ([facility]) Ciprofloxacin 250 MG Oral Tablet [Cipro] 09/06/2020 12:00:00 AM EST eCW1 ([facility]) Ciprofloxacin 250 MG Oral Tablet [Cipro] 09/06/2020 12:00:00 AM EST eCW1 ([facility]) Ciprofloxacin 250 MG Oral Tablet [Cipro] 09/06/2020 12:00:00 AM EST eCW1 ([facility]) Ciprofloxacin 250 MG Oral Tablet [Cipro] 09/06/2020 12:00:00 AM EST eCW1 ([facility]) Ciprofloxacin 250 MG Oral Tablet [Cipro] 09/06/2020 12:00:00 AM EST eCW1 ([facility]) Ciprofloxacin 250 MG Oral Tablet [Cipro] 09/06/2020 12:00:00 AM EST eCW1 ([facility]) Ciprofloxacin 250 MG Oral Tablet [Cipro] 09/06/2020 12:00:00 AM EST eCW1 ([facility]) Rosuvastatin calcium 10 MG Oral Tablet [Crestor] 08/25/2020 12:00:0 0 AM EDT eCW1 ([facility]) Rosuvastatin calcium 10 MG Oral Tablet [Crestor] 08/25/2020 12:00:0 0 AM EDT eCW1 ([facility]) Oxygen 08/04/2020 12:00:00 AM EDT e CW1 ([facility]) Oxygen 08/04/2020 12:00:00 AM EDT e CW1 ([facility]) Oxygen 08/04/2020 12:00:00 AM EDT e CW1 ([facility]) Cyclobenzaprine hydrochloride 10 MG Oral Tablet 08/07/2018 12:00:[address] [facility] Vancomycin HCl 50 MG/ML SOLR [facility] Famotidine [address] [facility] 1 ML Vitamin B 12 1 MG/ML Prefilled Syringe [facility] Acetaminophen 325 MG / Hydrocodone Bitartrate [address] [facility] Acetaminophen 325 MG / Hydrocodone Bitartrate [address] [facility] Clonazepam 0.[address] [facility] Clonazepam 0.[address] [facility] MELATONIN PO [facility] 24 HR Nicotine 0.292 MG/HR Transdermal Patch [facility] Calcium Carbonate 550 MG / Magnesium Hydroxide 110 MG Chewable Tabl et [facility] 60 ACTUAT Budesonide 0.16 MG/ACTUAT / fo rmoterol fumarate 0.0045 MG/ACTUAT Metered Dose Inhaler [facility] [id number] (DEPLIN 7.[address]) [facility] ferrous gluconate [address] [facility] carvedilol 3.[address] [facility] duloxetine 60 MG Delayed Release Oral Capsule [facility]
[2020-11-17] MEDS ORDERED: NS 1,000 ML IV SCH (16:00)
[2020-11-17] MEDS ORDERED: NS 1,000 ML IV ONE (16:15)
--- NOTE | 2020-11-17 16:39 | HPEPDOC ---
[facility] Medical History & Physical Date of Admission Nov 17, 2020 Date of Service: Nov 17, 2020 Attending Physician: Mari Blas MD History and Physical CHIEF COMPLAINT: increased weakness PAST MEDICAL HISTORY: Patient is a 75 y/o F with PMH of chronic hypoxic respiratory failure (uses 2L at baseline), CAD s/p OR (x3, x12 stents), Paroxysmal A. fib, Pacemaker / AICD (2012), Stroke (2014), Brain aneurysm (no intervention), Myasthenia Gravis , Fibromyalgia, Depression, Anxiety, Spinal stenosis, Arthritis, Tremors and GERD who presented to [facility] emergency room after having increased lethargy. The patient states for the past week she's had increased lethargy, weakness, decreased intake of fluid and food, nausea, lightheadedness, dizziness. She denies shortness of breath, vomiting, fevers, chills, sick contacts, abdominal pain, falls. She states that she saw cardiology (Dr. Robles) several weeks ago and, at that time, bisoprolol 5 mg was added to her medication regimen along with her torsemide and Entresto. She saw her primary care provider 11/16/20 and her main complaint, aside from her weakness, was that her right leg was increasingly weak. She also has increased pain secondary to a torn meniscus and arthritis on that same leg which is inoperable secondary to her cardiac condition. She was given Tylenol with Codeine and sent home by her PCP, VS were stable at that visit. She was recently admitted in September 2024 myasthenia gravis flare. The symptoms she is complaining of today are different than that visit . In the emergency room, vital signs showed temperature 96.6 F, heart rate 4050 (baseline heart rate 7080s), respiratory rate 18, blood pressure 78/43, 97% on 2 L nasal cannula which is her baseline. Troponin was negative, CK wnl. Other abnormal labs included creatinine 3.21 (baseline creatinine 1.41.8). The patient has been referred to nephrology o/p but has not yet seen them. BNP was elevated at 1122, no baseline BNP is on file for her. Her last echocardiogram was in 2014 and showed ejection fraction of 55%. There was a concern for h ypoperfusion secondary to beta-blockade. AICD was tested in the emergency room and did not seem to have anything acutely wrong with it. Dr. Ramsey with cardiology was contacted and suggested holding torsemide, bisoprolol and entresto. The patient's blood pressure improved without any fluids but, after consultation with nephrology, decision was made to give 1 L bolus and started on continuous fluids. The patient was ultimately admitted to PCU with diagnosis of hypotension likely multifactorial to dehydration and beta-blockade from beta yadiel, NALLELY on CKD likely secondary to hypoperfusion, dehydration and medications combined. REVIEW OF SYSTEMS: Neg except mentioned above PAST MEDICAL HISTORY: Chronic hypoxic respiratory failure (uses 2L at baseline), CAD s/p OR (x3, x12 stents), Paroxysmal A. 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 Robles (as of two weeks ago) Neurology- Dr. Sanford Orthopedic surgery-unknown name but to see soon for torn meniscus ALLERGIES: Please see below. HOME MEDICATIONS: Please see below. PHYSICAL EXAMINATION: VS: Please see below CONSTITUTIONAL: No acute distress, resting comfortably, AAO x 3 EYES: PERRLA, EOM intact HENT, MOUTH: Normocephalic, atraumatic, dry mucous membranes NECK: SUPPLE, no JVD, no lymphadenopathy, no carotid bruit CV: bradycardic, sinus, S1S2 normal, no murmurs/rubs/gallops RESPIRATORY: Clear to auscultation bilaterally, no rales/rhonchi/wheezes GI: BS positive in 4 quadrants, soft, nontender, nondistended, no rebound or gu arding, no organomegaly : Deferred MUSCULOSKELETAL: Normal ROM. No cyanosis, clubbing, swelling, joint deformity, extremity edema INTEGUMENTARY: Dry skin, Intact, no rashes, no lesions, no erythema NEUROLOGIC: Cranial Nerves II-XII are intact, no focal deficits PSYCHIATRIC: Mood and affect are normal LABORATORY DATA: Please see below MICROBIOLOGY: F/u UA IMAGING: CXR: chronic changes, no definite acute infiltrate ASSESSMENT: 75 y/o F with PMH of chronic hypoxic respiratory failure (uses 2L at baseline), CAD s/p OR (x3, x12 stents), Paroxysmal A. fib, Pacemaker / AICD (2012), Stroke (2014), Brain aneurysm (no intervention), Myasthenia Gravis , Fibromyalgia, Depression, Anxiety, Spinal stenosis, Arthritis, Tremors and GERD admitted for hypotension likely multifactorial to dehydration and beta-blockade from beta yadiel, NALLELY on CKD likely secondary to hypoperfusion, dehydration and medications combined. PLAN: Hypotension likely multifactorial to dehydration and hypoperfusion from beta- blockade -BP 78-114/43-53, HR lightheaded, dizzy. Hx of HTN -Introduction of bisoprolol over the past several weeks to regimen, decreased PO intake -Received no fluids when evaluated but improved on her own -F/u new echocardiogram, troponins -Giving 1 liter NSS bolus and starting on continuous fluids as patient appears dry (dry oral mucosa, no s/s of fluid overload) -Admitting to PCU, monitor on tele, holding all antihypertensives/diuretics for now. NALLELY on CKD likely secondary to hypoperfusion, dehydration and medications -Cr 3.21, baseline Cr 1.4-1.8 -Does not follow with nephrology but has been referred recently -Discussed case with Dr. Fry (nephrology) who agrees with fluids -Hold all nephrotoxic meds, antihypertensives for now -F/u AM labs -Nephrology consulted, to see in AM Bradycardia likely 2/2 to beta-blockade from beta yadiel -Introduced recently to medication regimen, bisoprolol -HR in clinic normally 80's, here 48-63- improving over time without aggressive reversal treatment. -Stopping BB, monitor on tele -Discussed with cardiology medical office receptionist assistant (Dr. Ramsey). Not officially consulted but can contact at any time for further questions about case. Increased weakness likely acute on chronic 2/2 to issues above, chronic deconditioning -Hx of myasthenia gravis but not in exacerbation/flare -PT/OT when pressures normalize -Optimize nutrition Chronic hypoxic respiratory failure -Saturating well on 2 L NC (home amount of O2) -CXR: chronic changes -Patient reports that she is a smoker, actively for 50 years -Denies the diagnosis of COPD -Patient uses 2L at baseline -Continue with inhaled therapy HFpEF, not currently in exacerbation -Extension cardiac disease mentioned above -BNP 1122, likely chronically -Trop neg -Echo 2014: EF 55%. -F/u new echocardiogram -Holding BB, ARB/ACEi, diuretics for now- restart when ok with cards, nephro -Watch and monitor for s/s of fluid overload- currently dry CAD s/p OR x 3, 12 stents placed -Denies chest pain, incr shortness of breath -Trop neg -AICD interrogated in ER, to f/u with cardiology -ECG baseline abnormal -History of OR x3, x12 stents, most recent 2009 -Holding ACEi/ARB, diuretics, BB. C/w statin, ASA Paroxysmal A. fib -As per record, however patient denies knowing this diagnosis -EKG currently is sinus bradycardia with occasional PVCs -c/w Digoxin, ASA 81 Stroke (2014) - c/w ASA, statin Brain aneurysm - Patient reported that no intervention was required Myasthenia Gravis/ Parkinson's disease -Follows o/p with neurology Macrocytic anemia -c/w Vitamin B12 Fibromyalgia / Depression / Anxiety -Currently stable -C/w Gabapentin, Sertraline, Bupropion, Clonazepam Spinal stenosis / Arthritis -c/w Tylenol PRN Calcium / Vitamin D deficiency -c/w Vitamin D and Calcium carbonate GERD -C/w PPI DVT px -Heparin SC DISPOSITION: Admitted to PCU for close monitoring. Plan is PT/OT when BP and HR remain stable. Vital Signs Vital Signs Date Time Temp Pulse Resp B/P (MAP) Pulse Ox O2 Delivery O2 Flow Rate FiO2 11/17/20 16:00 63 100 11/17/20 15:45 108/55 (72) 11/17/20 14:56 18 11/17/20 13:53 Nasal Cannula 2.0 11/17/20 13:46 96.6 Laboratory Data Labs 24H Laboratory Tests 2 11/17/20 14:02: Immature Granulocyte % (Auto) 0.3, Neutrophils (%) (Auto) 56.4, Lymphocytes (%) (Auto) 31.9, Monocytes (%) (Auto) 6.9H, Eosinophils (%) (Auto) 4.1H, Basophils (%) (Auto) 0.4, Neutrophils # (Auto) 5.7, Lymphocytes # (Auto) 3.2, Monocytes # (Auto) 0.7, Eosinophils # (Auto) 0.4, Basophils # (Auto) 0.0, Nucleated Red Blood Cells % (auto) 0.0, Prothrombin Time 13.2, Prothromb Time International Ratio 0.98, Activated Partial Thromboplast Time 45.8H, Anion Gap 4L, Glomerular Filtration Rate 15.0L, Calcium Level 8.3L, Total Creatine Kinase 74, Creatine Kinase MB 1.3, Creatine Kinase MB Relative Index 1.76, Troponin I < 0.02, MA-Aad-M-Type Natriuretic Peptide 1122H 11/17/20 14:03: 11/17/20 14:57: Coronavirus (COVID-19)(PCR) NEGATIVE, Influenza Type A (RT-PCR) NEGATIVE, Influenza Type B (RT-PCR) NEGATIVE, Respiratory Syncytial Virus (PCR) NEGATIVE CBC/BMP Laboratory Tests 11/17/20 14:02 Home Medications Scheduled Aspirin (Aspirin EC) 81 Mg Tablet.dr, 81 MG PO DAILY Bisoprolol Fumarate (Bisoprolol Fumarate) 5 Mg Tablet, 2.5 MG PO DAILY Bupropion HCl (Wellbutrin Sr) 100 Mg Tab.sr.12h, 100 MG PO DAILY Carbidopa/Levodopa (Carbidopa-Levodopa 25-100 Tab) 1 Each Tablet, 1 TAB PO QID 0900/1200/1500/1800 Cholecalciferol (Vitamin D3) (D3-50) 1,250 Mcg Capsule, 1,250 MCG PO QMONTH Clonazepam (Clonazepam) 0.5 Mg Tablet, 0.5 MG PO QHS Clonazepam (Clonazepam) 0.5 Mg Tab.rapdis, 0.5 MG PO DAILY 1500 Cyanocobalamin (Vitamin B-12) (Vitamin B-12) 500 Mcg Tablet, 500 MCG PO DAILY Digoxin (Digoxin) 125 Mcg Tablet, 125 MCG PO 3XW MON, WED, FRI Gabapentin (Gabapentin) 300 Mg Capsule, 600 MG PO QHS Omeprazole (Omeprazole) 40 Mg Capsule.dr, 40 MG PO DAILY Rosuvastatin Calcium (Rosuvastatin Calcium) 40 Mg Tablet, 40 MG PO QHS Sacubitril/Valsartan (Entresto 24 mg-26 mg Tablet) 1 Each Tablet, 1 TAB PO BID Sertraline HCl (Sertraline HCl) 100 Mg Tablet, 100 MG PO DAILY Torsemide (Torsemide) 20 Mg Tablet, 20 MG PO DAILY Scheduled PRN Acetaminophen (Tylenol Arthritis) 650 Mg Tablet.er, 1,300 MG PO Q8H PRN for PAIN Acetaminophen with Codeine (Acetaminophen-Cod #3 Tablet) 1 Each Tablet, 1 TAB PO Q6H PRN for PAIN MDD = 4 Albuterol Sulfate (Ventolin Hfa) 18 Gm Hfa.aer.ad, 2 PUFFS INH Q4H PRN for SOB/WHEEZING Epinephrine (Epinephrine) 0.3 Mg/0.3 Ml Auto.injct, 0.3 MG INJ PRN PRN for ALLERGIC REACTION Glycerin/Propylene Glycol (Artificial Tears Drops) 15 Ml Drops, 1 DROP OU QID PRN for DRY EYES Ipratropium/Albuterol Sulfate (Iprat-Albut 0.5-3(2.5) mg/3 ml) 3 Ml Ampul.neb, 1 HANSA INH QID PRN for SHORTNESS OF BREATH Lidocaine/Menthol (Icy Hot 4%-1% Patch) 1 Each Adh..patch, 1 PATCH TOP TID PRN for PAIN BACK/KNEE Menthol/Camphor (Freeze It Relief Gel) 113.4 Gm Gel..gram., 1 DOSE TOP BID PRN for SCIATIC PAIN APPLY TO RIGHT LEG AND BACK Nitroglycerin (Nitrostat) 0.4 Mg Tab.subl, 0.4 MG SL NITRO PRN for CHEST PAIN Allergies Coded Allergies: bee venom protein (honey bee) (Verified Allergy, Severe, ANAPHYLAXIS, 11/17/20) strawberry (Verified Allergy, Severe, ANAPHYLAXIS, 11/17/20) caffeine (Verified Adverse Reaction, Intermediate, heart palpitations, 11/17/20) A-FIB/CHADSVASC A-FIB History Current/History of A-Fib/PAF?: Yes Current PO Anticoag Therapy: No Age/Risk Factor Scoring CHADSVASC: CHADSVASC Response (Comments) Value Age Risk Factor Age 65-74 years old 1 Gender Risk Factor Female 1 Hx of CHF Yes 1 Hx of HTN Yes 1 Hx of Stroke/TIA/or VTE Yes 2 Hx of Diabetes No 0 Hx of Vascular Disease No 0 Total 6 Treatment Treatment ordered: Other Other anticoagulant ordered: heparin Mari Blas MD Nov 17, 2020 16:39
[2020-11-17 16:40] LABS: DIGOXIN LEVEL 0.1 NG/ML (0.5-2.0)
[2020-11-17] MEDS ORDERED: ALBUTEROL 90 MCG/ACT 8GM HFA INHALER INH PRN (16:45)
[2020-11-17] MEDS ORDERED: IPRATROPIUM 0.5MG/ALBUTEROL 2.5MG INH SOL UD 3ML (DUONEB) INH PRN (16:45)
[2020-11-17 18:00] VITALS: BP 102/49
[2020-11-17] MEDS: SINEMET 25-100 MG TAB PO SCH (18:36)
--- NOTE | 2020-11-17 19:40 | REP ---
INDICATION: NALLELY on CKD. COMPARISON: None. TECHNIQUE: Real-time sonographic evaluation of the kidneys is performed. FINDINGS: The right kidney measures 11.8 x 5.4 x 4.4 cm. Left renal dimensions are 11.8 x 4.9 x 4.6 cm. Both kidneys are hyperechoic suggesting medical renal disease. There is no hydronephrosis bilaterally. There are multiple bilateral cysts present, more so in the left kidney compared to the right. There is a 1 cm cyst in the right upper pole, a 3.9 cm cyst in the mid aspect of the right kidney and in the lower pole a 3.2 cm cyst. The left kidney demonstrates multiple innumerable cysts. The largest 3 are measured. In the upper left kidney a complex septated cyst measures 6 cm in maximum diameter and there is an adjacent simple 6 cm cyst. There is a complex septated cyst in the lower pole of left kidney 6.1 cm in maximum diameter. No solid nodular structures seen in the left kidney. There is a simple left ovarian cyst incidentally noted 3.0 cm in diameter. The urinary bladder is unremarkable. Ureteral jets could not be visualized with Doppler color evaluation. IMPRESSION: No hydronephrosis. Multiple innumerable cysts left kidney. There are also several cysts of the right kidney. Increased echotexture of the kidneys suggests medical renal disease. <Electronically signed by Danial Garcia > 11/17/201936
[2020-11-17] MEDS: NS 1,000 ML IV SCH (20:14)
[2020-11-17 20:21] VITALS: BP 120/60
[2020-11-17] MEDS: clonazePAM 0.5 MG TAB PO SCH (21:02)
[2020-11-17] MEDS: ROSUVASTATIN 10 MG TAB (CRESTOR) PO SCH (21:02)
[2020-11-17] MEDS: HEPARIN SOD (PORCINE) 5000UNITS/ML 1ML VIAL/SYRINGE SC SCH (21:03)
[2020-11-17] MEDS: GABAPENTIN 300 MG CAP PO SCH (21:05)
[2020-11-18 00:20] VITALS: BP 122/60
--- NOTE | 2020-11-18 00:43 | ECGEPIP ---
[facility] - ED Test Date: 2020-11-17 Pat Name: JANEEN JEFFERSON Department: Room: - Gender: Female [employer]: bro : 1945 Requested By: Thomas Hammer Order Number: [id number] Reading MD: Thomas Bell Measurements Intervals Scenic Rate: 49 P: 42 IN: 214 QRS: -18 QRSD: 120 T: -70 QT: 448 QTc: 405 Interpretive Statements SINUS BRADYCARDIA WITH FIRST DEGREE AV BLOCK ELECTRONIC VENTRICULAR PACEMAKER MODERATE INTRAVENTRICULAR CONDUCTION DELAY MODERATE T-WAVE ABNORMALITY, CONSIDER ANTEROLATERAL ISCHEMIA MODERATE T-WAVE ABNORMALITY, CONSIDER INFERIOR ISCHEMIA Electronically Signed on 11-18-2020 0:43:33 EST by Thomas Bell
[2020-11-18 04:15] VITALS: BP 110/54
[2020-11-18 05:02] LABS: HEMATOCRIT 28.9 % (36.0-47.0); HEMOGLOBIN 8.6 g/dl (12.0-15.5); MEAN CORPUSCULAR HEMOGLOBIN 29.9 pg (27.0-33.0); MEAN CORPUSCULAR HGB CONC 29.8 g/dl (32.0-36.5); MEAN CORPUSCULAR VOLUME 100.3 fl (80.0-96.0); PLATELET COUNT, AUTOMATED 200 10^3/uL (150-450); RED BLOOD COUNT 2.88 10^6/uL (4.00-5.40); WHITE BLOOD COUNT 6.7 10^3/uL (4.0-10.0)
[2020-11-18 05:31] LABS: BLOOD UREA NITROGEN 41 MG/DL (7-18); CALCIUM LEVEL 7.5 MG/DL (8.8-10.2); CARBON DIOXIDE LEVEL 21 MEQ/L (21-32); CHLORIDE LEVEL 115 MEQ/L (98-107); GLOMERULAR FILTRATION RATE 14.5 (>39); GLUCOSE, FASTING 98 MG/DL (70-100); POTASSIUM SERUM 4.6 MEQ/L (3.5-5.1); SODIUM LEVEL 142 MEQ/L (136-145)
[2020-11-18 05:32] LABS: ALBUMIN 2.6 GM/DL (3.2-5.2); ALT/SGPT 7 U/L (12-78); BILIRUBIN,TOTAL 0.2 MG/DL (0.2-1.0); TOTAL PROTEIN 5.5 GM/DL (6.4-8.2)
[2020-11-18] MEDS: HEPARIN SOD (PORCINE) 5000UNITS/ML 1ML VIAL/SYRINGE SC SCH ×3 (06:38→21:11)
[2020-11-18 08:00] VITALS: BP 134/65
[2020-11-18] MEDS ORDERED: IRON SUCROSE 100 MG in NS 100 ML IV SCH (09:00)
[2020-11-18] MEDS ORDERED: DIGOXIN 0.125 MG TAB PO SCH (09:00)
[2020-11-18] MEDS: NS 1,000 ML IV SCH (09:09)
[2020-11-18] MEDS: SINEMET 25-100 MG TAB PO SCH ×4 (09:09→17:47)
[2020-11-18] MEDS: ASPIRIN 81 MG ENTERIC TAB PO SCH (09:09)
[2020-11-18] MEDS: buPROPion (WELLBUTRIN SR) 100 MG SR TAB PO SCH (09:09)
[2020-11-18] MEDS: CYANOCOBALAMIN 500 MCG TAB PO SCH (09:09)
[2020-11-18] MEDS: SERTRALINE 100 MG TAB PO SCH (09:09)
[2020-11-18] MEDS: OMEPRAZOLE 20 MG CAP PO SCH (09:09)
[2020-11-18 10:05] LABS: CHOLESTEROL LEVEL 81 MG/DL (<200); FERRITIN 106 NG/ML (8-252); HDL CHOLESTEROL 44 MG/DL (>40); IRON (FE) 56 UG/DL (50-170); LDL CHOLESTEROL -1 MG/DL (<100); NON-HDL-C 37 MG/DL; PERCENT SATURATION 19.6 % (13.2-45.0); TOTAL IRON BINDING CAPACITY 285 UG/DL (250-450); TRIGLYCERIDES LEVEL 191 MG/DL (<150)
[2020-11-18] MEDS: ACETAMINOPH W/CODEINE #3 TAB UD PO PRN ×2 (10:21→21:12)
[2020-11-18 10:25] LABS: PTH INTACT 89.9 PG/ML (18.5-88.0)
[2020-11-18 10:26] LABS: HEPATITIS B SURFACE ANTIBODY NEGATIVE (POSITIVE)
[2020-11-18 10:36] LABS: HEPATITIS B SURFACE ANTIGEN NEGATIVE (NEGATIVE)
[2020-11-18 11:05] LABS: HEPATITIS B CORE ANTIBODY IGM NEGATIVE (NEGATIVE); HEPATITIS C VIRUS ABY INDEX < 0.0 INDEX (<0.8)
[2020-11-18 12:00] VITALS: BP 118/56
[2020-11-18] MEDS ORDERED: clonazePAM 0.5 MG TAB PO SCH (15:00)
[2020-11-18 16:00] VITALS: BP 108/58
[2020-11-18] MEDS: IRON SUCROSE 100 MG in NS 100 ML IV SCH (16:00)
--- NOTE | 2020-11-18 17:58 | IPNPDOC ---
Date Seen The patient was seen on 11/18/20. Progress Note SUBJECTIVE: HR and BP stable, improved from admission. Continuing to home BB, other meds. Echo to be done today. Renal US showing cysts on both kidneys, per nephro likely PCKD. Cr increasing, may require HD- they are to discuss options of treatment with her. She feels "horrible" this AM, decreased appetite and energy. Denies chest pain, shortness of breath. OBJECTIVE: PHYSICAL EXAMINATION: VS: Please see below CONSTITUTIONAL: Appears tired this AM, no acute distress, resting in bed, AAO x 3 EYES: PERRLA, EOM intact HENT, MOUTH: Normocephalic, atraumatic, dry mucous membranes NECK: SUPPLE, no JVD, no lymphadenopathy, no carotid bruit CV: bradycardic, sinus, S1S2 normal, no murmurs/rubs/gallops RESPIRATORY: Clear to auscultation bilaterally, no rales/rhonchi/wheezes GI: BS positive in 4 quadrants, soft, nontender, nondistended, no rebound or guarding, no organomegaly : Deferred MUSCULOSKELETAL: Normal ROM. No cyanosis, clubbing, swelling, joint deformity, extremity edema INTEGUMENTARY: Dry skin, Intact, no rashes, no lesions, no erythema NEUROLOGIC: Cranial Nerves II-XII are intact, no focal deficits PSYCHIATRIC: Mood and affect are normal LABORATORY DATA: Please see below MICROBIOLOGY: F/u UA IMAGING: Renal US: No hydronephrosis. Multiple innumerable cysts left kidney. There are also several cysts of the right kidney. Increased echotexture of the kidneys suggests medical renal disease. CXR: chronic changes, no definite acute infiltrate ASSESSMENT: 75 y/o F with PMH of chronic hypoxic respiratory failure (uses 2L at baseline), CAD s/p NH (x3, x12 stents), Paroxysmal A. fib, Pacemaker / AICD (2013), Stroke (2014), Brain aneurysm (no intervention), Myasthenia Gravis , Fibromyalgia, Depression, Anxiety, Spinal stenosis, Arthritis, Tremors and GERD admitted for hypotension likely multifactorial to dehydration and beta-blockade from beta yadiel, NALLELY on CKD likely secondary to hypoperfusion, dehydration and medications combined. PLAN: Hypotension likely multifactorial to dehydration and hypoperfusion from [id number] -BP 134/65, hx of HTN -Introduction of bisoprolol over the past several weeks to regimen, decreased PO intake -S/p 500 cc bolus and IVFs- stopped today by nephrology -Trop neg x 3 -F/u new echocardiogram -Continue to holding all antihypertensives/diuretics for now. NALLELY on CKD likely secondary to hypoperfusion, dehydration and medications and now PCKD -Renal US: above -Cr worsened at 3.30 -Continue to hold all nephrotoxic meds, antihypertensives for now -Per Nephrology, may require HD in future if does not improve. This was to be discussed with patient by nephrology team. 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 Not officially consulted but can contact at any time for further questions about case. Increased weakness likely acute on chronic 2/2 to issues above, chronic deconditioning -Hx of myasthenia gravis but not in exacerbation/flare -PT/OT ordered -Optimize nutrition Chronic hypoxic respiratory failure -Saturating well on 2 L NC (home amount of O2) -CXR: chronic changes -Denies the diagnosis of COPD -Continue with inhaled therapy HFpEF, not currently in exacerbation -Extension cardiac disease mentioned above -BNP 1122, likely chronically -Trop neg x 3 -Echo 2014: EF 55%. -F/u new echocardiogram -Holding BB, ARB/ACEi, diuretics for now- restart when/if ok with cards, nephro CAD s/p NH x 3, 12 stents placed -Denies chest pain, incr shortness of breath -Trop neg -AICD interrogated in ER, to f/u with cardiology -ECG baseline abnormal -History of NH x3, x12 stents, most recent 2009 -Holding ACEi/ARB, diuretics, BB. C/w statin, ASA Paroxysmal A. fib -As per record, however patient denies knowing this diagnosis -EKG currently is sinus bradycardia with occasional PVCs -F/u digoxin level -c/w Digoxin, ASA 81 Stroke (2014) - c/w ASA, statin Brain aneurysm - Patient reported that no intervention was required Myasthenia Gravis/ Parkinson's disease -Follows o/p with neurology Macrocytic anemia -c/w Vitamin B12 Fibromyalgia / Depression / Anxiety -Currently stable -C/w Gabapentin, Sertraline, Bupropion, Clonazepam Spinal stenosis / Arthritis -c/w Tylenol PRN Calcium / Vitamin D deficiency -c/w Vitamin D and Calcium carbonate GERD -C/w PPI DVT px -Heparin SC DISPOSITION: Admitted to PCU for close monitoring. PT/OT, monitored by nephrology closely. VS, I&O, 24H, Fishbone Vital Signs/I&O Vital Signs Date Time Temp Pulse Resp B/P (MAP) Pulse Ox O2 Delivery O2 Flow Rate FiO2 11/18/20 16:00 2.0 11/18/20 16:00 98.5 67 18 108/58 (75) 97 Nasal Cannula I&O- Last 24 Hours up to 6 AM 11/18/20 06:00 Intake Total 1850 ml Balance 1850 ml Laboratory Data 24H LABS Laboratory Tests 2 11/17/20 18:33: Troponin I < 0.02 11/17/20 22:05: Troponin I < 0.02 11/18/20 04:51: Nucleated Red Blood Cells % (auto) 0.0, Anion Gap 6L, Glomerular Filtration Rate 14.5L, Calcium Level 7.5L, Iron Level 56, Total Iron Binding Capacity 285, Transferrin % Saturation 19.6, Ferritin 106, Total Bilirubin 0.2, Aspartate Amino Transf (AST/SGOT) 10, Alanine Aminotransferase (ALT/SGPT) 7L, Alkaline Phosphatase 88, Total Protein 5.5L, Albumin 2.6L, Albumin/Globulin Ratio 0.9L, Triglycerides Level 191H, Total Cholesterol 81, LDL Cholesterol -1, Non-HDL Cholesterol (LDL + VLDL) 37, Total HDL Cholesterol 44, Cholesterol/HDL Ratio 1.840, Parathyroid Hormone (Intact) 89.9H, Hepatitis B Surface Antigen NEGATIVE, Hepatitis B Surface Antibody NEGATIVE, Hepatitis B Core IgM Antibody NEGATIVE, Hepatitis C Antibody Index < 0.0 11/18/20 11:05: CBC/BMP Laboratory Tests 11/18/20 04:51 Current Medications Current Medications Medications (Trade) Dose Ordered Sig/Jorden Route PRN Reason Start Time Stop Time Status Last Admin Dose Admin Acetaminophen/ Codeine Phosphate (Tylenol/Codeine #3 Tablet) 1 ea Q6H PRN PO PAIN 11/17/20 16:45 11/18/20 10:21 Albuterol Sulfate (Proventil, Ventolin Hfa) 2 puff Q4H PRN INH SOB/WHEEZING 11/17/20 16:45 Albuterol/ Ipratropium (Duoneb (Ipr 0.5mg/Alb 2.5mg)) 3 ml QID PRN INH SHORTNESS OF BREATH 11/17/20 16:45 Aspirin (Ecotrin) 81 mg DAILY PO 11/18/20 09:00 11/18/20 09:09 Bupropion HCl (Wellbutrin Sr) 100 mg DAILY PO 11/18/20 09:00 11/18/20 09:09 Carbidopa/Levodopa (Sinemet 25/100) 1 tab 0900,1200,1500,1800 PO 11/17/20 18:00 11/18/20 17:47 Clonazepam (KlonoPIN) 0.5 mg DAILY@1500 PO 11/18/20 15:00 11/18/20 15:22 Clonazepam (KlonoPIN) 0.5 mg QHS PO 11/17/20 21:00 11/17/20 21:02 Cyanocobalamin (Vitamin B12) 500 mcg DAILY PO 11/18/20 09:00 11/18/20 09:09 Digoxin (Lanoxin) 0.125 mg DAILY PO 11/18/20 09:00 11/18/20 08:16 DC Digoxin (Lanoxin) 0.125 mg MoWeFr@0900 PO 11/19/20 09:00 Dobutamine HCl 202185 mcg/IV Miscellaneous Supplies 250 ml @ 6 mls/hr DRIP IV 11/17/20 15:30 11/17/20 15:58 DC Gabapentin (Neurontin) 600 mg QHS PO 11/17/20 21:00 11/17/20 21:05 Heparin Sodium (Porcine) (Heparin) 5,000 units Q8H SC 11/17/20 22:00 11/18/20 13:21 Home Med (Med Rec Complete!) ASDIRECTED XX 11/17/20 16:15 11/17/20 16:12 DC Iron 100 mg/ Sodium Chloride 105 ml @ 105 mls/hr DAILY IV 11/18/20 09:00 11/18/20 12:59 DC Iron 100 mg/ Sodium Chloride 105 ml @ 105 mls/hr Q24H IV 11/18/20 15:00 11/18/20 16:00 Omeprazole (PriLOSEC) 40 mg DAILY PO 11/18/20 09:00 11/18/20 09:09 Rosuvastatin Calcium (Crestor) 40 mg QHS PO 11/17/20 21:00 11/17/20 21:02 Sertraline HCl (Zoloft) 100 mg DAILY PO 11/18/20 09:00 11/18/20 09:09 Sodium Chloride 1,000 ml @ 85 mls/hr [id number] IV 11/17/20 18:00 11/18/20 11:39 DC 11/18/20 09:09 Sodium Chloride 1,000 ml @ 125 mls/hr Q8H IV 11/17/20 16:00 11/17/20 16:07 DC Allergies Coded Allergies: bee venom protein (honey bee) (Verified Allergy, Severe, ANAPHYLAXIS, 11/17/20) strawberry (Verified Allergy, Severe, ANAPHYLAXIS, 11/17/20) caffeine (Verified Adverse Reaction, Intermediate, heart palpitations, 11/17/20) Mari Blas MD Nov 18, 2020 17:58
[2020-11-18 20:00] VITALS: BP 120/58
[2020-11-18] MEDS: GABAPENTIN 300 MG CAP PO SCH (21:10)
[2020-11-18] MEDS: clonazePAM 0.5 MG TAB PO SCH (21:11)
[2020-11-18] MEDS: ROSUVASTATIN 10 MG TAB (CRESTOR) PO SCH (21:11)
[2020-11-18 22:59] LABS: HEMOGLOBIN A1c 5.6 %
[2020-11-19] VITALS: BP 128/58
--- NOTE | 2020-11-19 | CR ---
NEPHROLOGY CONSULTATION DATE: 11/18/2020 REQUESTING PHYSICIAN: Dr. Mari Blas CONSULTING PHYSICIAN: Dr. Lisandra Johnson REASON FOR CONSULTATION: Management of acute renal failure CHIEF COMPLAINT: The patient presented to the hospital yesterday with progressive weakness. HISTORY OF PRESENT ILLNESS: Ashwini Sandy is a 75-year-old female with a past medical history of coronary artery disease, history of myocardial infarction and twelve stents in the past, chronic hypoxic respiratory failure, paroxysmal atrial fibrillation, history of pacemaker and AICD in the past, multiple other comorbidities as mentioned below. She presented to the hospital yesterday with progressive shortness of breath. She reports that she was recently seen by Cardiology. Bisoprolol 5 mg was added to her regimen at that time along with Torsemide and Entresto. She started getting progressive weakness. In the Emergency Room the patient was found to have hypertension with bradycardia, heart rate in the 40's to 50's. She was admitted under the Hospitalist Service. Cardiology was consulted. Beta blockers, Entresto and Torsemide were stopped. She was started on Dobutamine and IV fluids. Her creatinine on arrival was 3.2, so Nephrology Service was called for further help in the management of this patient. The patient is not aware of her baseline chronic kidney disease, however as per previous records, in September 2020 her creatinine was 1.4. PAST MEDICAL HISTORY: The patient's past medical history is significant for: 1. History of chronic hypoxic respiratory failure O2 dependent at baseline. 2. Coronary artery disease - status post myocardial infarction x3. Twelve stents in the heart. 3. Paroxysmal atrial fibrillation - status post pacemaker and AICD. 4. History of CVA. 5. Brain aneurysms. 6. Myasthenia gravis. 7. Fibromyalgia. 8. Depression. 9. Anxiety. 10. Spinal stenosis. 11. Arthritis. 12. Tremors. 13. Gastroesophageal reflux disease. PAST SURGICAL HISTORY: The patient's past surgical history is significant for: 1. Status post cardiac catheterization in the past - status post twelve stents in the heart. 2. Left arm titanium plate and screws. 3. History of spinal fusion. 4. AICD and pacemaker placement. 5. Benign tumor removal from the right shoulder blade. 6. Cystocele and rectocele repair. 7. Total abdominal hysterectomy. 8. Tonsillectomy and adenoidectomy. 9. Colonoscopy. ALLERGIES: She is allergic to: 1. Bee venom. 2. Caffeine. 3. Strawberries. FAMILY HISTORY: Father had bone cancer. She reports that she has a sister who is going for dialysis at this time. She has nine siblings. SOCIAL HISTORY: The patient lives at home. She is an active smoker. She denies any illicit drug abuse or alcohol abuse. REVIEW OF SYSTEMS: Constitutional: She denies any fevers or chills. Eyes: She denies any blurry vision, double vision. ENT: She denies any dysphagia odynophagia. Cardiovascular: She came in with bradycardia. Respiratory: She denies any shortness of breath. GI: She denies any nausea, vomiting. Genitourinary: She denies any dysuria or hematuria. Musculoskeletal: She reports recent muscle weakness on arrival. Skin: She denies any rashes or ulcers. Psych: She denies any depression or anxiety. Hematological/Oncological: She denies any bleeding or bruising. All other review of systems is negative. PHYSICAL EXAMINATION: GENERAL APPEARANCE: The patient is awake, alert, oriented x3. VITAL SIGNS: Temperature is 98.4 degrees Fahrenheit, blood pressure 118/56, pulse is 67, respiratory rate of 18, saturating 98% on nasal cannula at 2 liters. HEAD AND NECK: Extraocular muscles intact. Pupils are equally round and reactive to light. Mucous membranes are moist. Neck is supple. She has moderately elevated jugular venous distention. CARDIOVASCULAR: S1, S2, regular rate. EXTREMITIES: No edema of the bilateral lower extremities. RESPIRATORY: Decreased breath sounds at the bases with mild inspiratory crackles at the bases. ABDOMEN: Soft, positive bowel sounds, nontender. GENITOURINARY: Bladder scan was done and there was around 300 mL of urine in the bladder. MUSCULOSKELETAL: No clubbing, no cyanosis. Pulses are 2+. ARCHITECTURAL RENDERER: No focal deficits. Power is 5/5 in bilateral upper extremities. LAB REVIEW: CBC showed a WBC of 6.7, hemoglobin 8.6, platelets are 200. INR is 0.98. BMP on arrival showed sodium of 139, potassium 4.5, chloride 109, bicarbonate 26, BUN 39, creatinine of 3.2. Calcium is 8.3. Troponin less than 0.02. BNP was 1,122. Digoxin level was 0.1. IMAGING DATA: A renal ultrasound was done which showed no hydronephrosis, multiple innumerable cysts in the left kidney and there are also several cysts of the right kidney, increase of echotexture of the kidneys, suggesting medical renal disease. HOME MEDICATIONS: The patient's current home medications include: 1. Tylenol p.r.n. 2. Albuterol p.r.n. 3. Aspirin 81 mg daily. 4. Bisoprolol 2.5 mg p.o. daily. 5. Wellbutrin 100 mg p.o. daily. 6. Carbidopa Levodopa one tablet four times daily. 7. Vitamin D. 8. Clonazepam 0.5 mg q. h.s. 9. Vitamin B-12. 10. Digoxin 0.125 mg p.o. three times a week. 11. Gabapentin 600 mg q. h.s. 12. Nitroglycerin p.r.n. 13. Omeprazole 40 mg p.o. daily. 14. Rosuvastatin 40 mg p.o. q. h.s. 15. Entresto 24/26 mg one tablet p.o. twice daily. 16. Torsemide 20 mg p.o. daily. 17. Sertraline 100 mg p.o. daily. CURRENT INPATIENT MEDICATIONS: The patient's medications include: 1. Normal saline at 85 mL an hour. 2. I have started the patient on Venofer 100 mg IV daily. 3. She is on Tylenol p.r.n. 4. Aspirin 81 mg daily. 5. Wellbutrin 100 mg p.o. daily. 6. Sinemet one tablet p.o. four times daily. 7. Klonopin 0.5 mg p.o. twice daily. 8. Vitamin B-12 daily. 9. Digoxin has been held. 10. Gabapentin 600 mg q. h.s. 11. Heparin 5,000 units subcutaneously q. 8 hourly. 12. Omeprazole 40 mg p.o. daily. 13. Rosuvastatin 40 mg q. h.s. 14. Zoloft 100 mg p.o. daily. ASSESSMENT AND PLAN: 1. Acute renal failure superimposed on chronic kidney disease the patient's baseline creatinine is 1.4. Looking at the patient's renal ultrasound, she has multiple innumerable cysts bilaterally, more on the left side as compared with the right side. She also gives a history of right sided pyelonephritis in the past requiring stent. She has echogenic kidneys. The patient's most likely has polycystic kidney disease and acute renal failure secondary to combination of hypotension induced ATN, use of Entresto and beta blockers and diuretics at home. She was being given IV fluids, however because of her history of congestive heart failure, I stopped the IV fluid hydration. There is no urgent need of hemodialysis. I would continue to monitor and try to maximally optimize the patient's renal failure with medications. Acid base and electrolytes are within the acceptable range at this time. 2. Bradycardia it was secondary to the use of beta blockers. Beta blockers have been stopped. Heart rate is getting better now. 3. Hypotension on arrival it is multifactorial. The patient has bradycardia. She was using beta blockers, she was on Entresto and diuretics. All of the offending medications are on hold. She was only getting IV fluid hydration which I have stopped, as mentioned above. 4. History of heart failure with preserved ejection fraction no further need of IV fluid hydration. Entresto and loop diuretics have been held because of acute renal failure. Latest echocardiogram result is pending. 5. History of coronary artery disease, status post stents x12 she is not a candidate for Yuniel or ARB at this time because of acute renal failure. Beta yadiel has been held because of bradycardia. Continue Aspirin and statin. 6. History of paroxysmal atrial fibrillation - Digoxin is as per the Medical Team. 7. History of brain aneurysms I strongly believe that the patient's aneurysms of the brain are associated with polycystic kidney disease. 8. Iron deficiency anemia I have started the patient on IV Venofer. If hemoglobin stays below 10, then she will be started on AFZAL. 9. Secondary hyperparathyroidism : PTH is just slightly elevated. No need of Calcitriol at this time. MTDD
[2020-11-19 01:25] LABS: AMORPHOUS SEDIMENT SMALL (NEGATIVE); APPEARANCE, URINE HAZY (CLEAR); BACTERIA, URINE AUTO NEGATIVE (NEGATIVE); BILIRUBIN, URINE AUTO NEGATIVE (NEGATIVE); BLOOD, URINE BLOOD 2+ (NEGATIVE); COLOR, URINE YELLOW (YELLOW); GLUCOSE, URINE (UA) AUTO NEGATIVE (NEGATIVE); KETONE, URINE AUTO NEGATIVE (NEGATIVE); LEUKOCYTE ESTERASE, URINE AUTO 1+ (NEGATIVE); NITRITE, URINE AUTO NEGATIVE (NEGATIVE); PROTEIN, URINE AUTO 1+ mg/dL (NEGATIVE); RBC, URINE AUTO 2 /HPF (0-3); SPECIFIC GRAVITY URINE AUTO 1.011 (1.002-1.035); SQUAMOUS EPITHELIAL CELL UR AU 0 /HPF (0-6); TRANSITIONAL EPITHELIAL AUTO <1 /HPF; UROBILINOGEN, URINE AUTO 0.2 mg/dL (0.0-2.0); WBC, URINE AUTO 42 /HPF (0-3)
[2020-11-19] MEDS ORDERED: CEPHALEXIN 500 MG CAP PO ONE (03:45)
[2020-11-19 04:00] VITALS: BP 144/66
[2020-11-19] MEDS: HEPARIN SOD (PORCINE) 5000UNITS/ML 1ML VIAL/SYRINGE SC SCH ×3 (04:43→21:26)
[2020-11-19 05:29] LABS: HEMOGLOBIN 8.7 g/dl (12.0-15.5); MEAN CORPUSCULAR HEMOGLOBIN 29.8 pg (27.0-33.0); MEAN CORPUSCULAR VOLUME 99.3 fl (80.0-96.0); PLATELET COUNT, AUTOMATED 200 10^3/uL (150-450); RED BLOOD COUNT 2.92 10^6/uL (4.00-5.40); WHITE BLOOD COUNT 6.7 10^3/uL (4.0-10.0)
[2020-11-19 06:01] LABS: ALBUMIN 2.6 GM/DL (3.2-5.2); ALT/SGPT < 6 U/L (12-78); BILIRUBIN,TOTAL 0.2 MG/DL (0.2-1.0); BLOOD UREA NITROGEN 35 MG/DL (7-18); CALCIUM LEVEL 7.9 MG/DL (8.8-10.2); CARBON DIOXIDE LEVEL 24 MEQ/L (21-32); CHLORIDE LEVEL 113 MEQ/L (98-107); CREATININE FOR GFR 3.12 MG/DL (0.55-1.30); GLOMERULAR FILTRATION RATE 15.5 (>39); GLUCOSE, FASTING 111 MG/DL (70-100); POTASSIUM SERUM 4.4 MEQ/L (3.5-5.1); SODIUM LEVEL 142 MEQ/L (136-145); TOTAL PROTEIN 5.8 GM/DL (6.4-8.2)
[2020-11-19 08:00] VITALS: BP 130/58
[2020-11-19] MEDS: SINEMET 25-100 MG TAB PO SCH ×4 (08:59→17:45)
[2020-11-19] MEDS: CEPHALEXIN 500 MG CAP PO SCH ×2 (08:59→21:26)
[2020-11-19] MEDS: CYANOCOBALAMIN 500 MCG TAB PO SCH (08:59)
[2020-11-19] MEDS: OMEPRAZOLE 20 MG CAP PO SCH (08:59)
[2020-11-19] MEDS: DIGOXIN 0.125 MG TAB PO SCH (08:59)
[2020-11-19] MEDS: ASPIRIN 81 MG ENTERIC TAB PO SCH (08:59)
[2020-11-19] MEDS: SERTRALINE 100 MG TAB PO SCH (08:59)
[2020-11-19] MEDS: buPROPion (WELLBUTRIN SR) 100 MG SR TAB PO SCH (08:59)
--- NOTE | 2020-11-19 10:20 | ECHO ---
DATE OF PROCEDURE: 11/18/2020 Age: 75 Gender: Female Height: 64 inches Weight: 158 pounds Body surface area: 1.78 m2 PATIENT LOCATION: Inpatient PCU, Room 3226 REFERRING PHYSICIAN: Dr. Mari Blas INDICATION: Bradycardia/abnormal EKG. MEASUREMENTS: 2D Measurements: RV 3.8 cm LV 5.6 cm Septum 1.2 cm Posterior wall 1.2 cm Aortic Root 3.3 cm LA 4.7 cm LVEF 50% Doppler Measurements: AV 1.78 m/s LVOT 1.04 m/s MV-E 89, A 110, E/A ratio 0.8 Early mitral deceleration time 177 msec E prime medial 6.8, A prime medial 9, E prime lateral 6.9 Average E/E prime ratio 13/PCWP - 18 mmHg PV 0.7 m/s Pulmonary artery acceleration time 80 msec RVSP 45 mmHg IVC 1.8 cm COMMENTS: Normal sinus rhythm at 67 BPM. No intraventricular conduction disturbance. M-mode and two-dimensional echocardiography was performed with pulse, continuous wave, color flow, and tissue Doppler studies. Slightly dilated and borderline hypertrophied left ventricle with proximal inferior akinesis, but other wall motion was normal. Moderately dilated left atrium with grade 1 LV diastolic dysfunction and current estimated mean left atrial pressure slightly increased. Normal right ventricular chamber size, but wall thickness appeared to be increased with normal right ventricular free wall motion and Doppler evidence of at least moderate pulmonary hypertension. At least mildly dilated right atrium, but normal IVC size and collapse against an elevated central venous pressure at this time. Normal aortic dimensions. Mild aortic valvular sclerosis without stenosis and very mild insufficiency. Mild degenerative changes of the mitral valve apparatus without inflow tract obstruction and only mild insufficiency. Normal appearing tricuspid valve with moderate tricuspid insufficiency. Pacing lead could be visualized traversing right heart structures, but no separate intracardiac mass. No pericardial effusion. MTDD
[2020-11-19 12:00] VITALS: BP 150/67
[2020-11-19] MEDS ORDERED: ceFAZolin SOD 2 GM in IV 1 EA IV ONE (12:00)
[2020-11-19] MEDS: ACETAMINOPH W/CODEINE #3 TAB UD PO PRN ×2 (12:23→21:44)
--- NOTE | 2020-11-19 14:58 | IPNPDOC ---
Date Seen The patient was seen on 11/19/20. Progress Note SUBJECTIVE: Placing becerril catheter today to closely monitor U/O. Cr slightly improved. Better spirits. Denies chest pain, shortness of breath. OBJECTIVE: PHYSICAL EXAMINATION: VS: Please see below CONSTITUTIONAL: Resting in bed, no acute distress, AAO x 3 EYES: PERRLA, EOM intact HENT, MOUTH: Normocephalic, atraumatic, dry mucous membranes NECK: SUPPLE, no JVD, no lymphadenopathy, no carotid bruit CV: bradycardic, sinus, S1S2 normal, no murmurs/rubs/gallops RESPIRATORY: Clear to auscultation bilaterally, no rales/rhonchi/wheezes GI: BS positive in 4 quadrants, soft, nontender, nondistended, no rebound or guarding, no organomegaly : Deferred MUSCULOSKELETAL: Normal ROM. No cyanosis, clubbing, swelling, joint deformity, extremity edema INTEGUMENTARY: Dry skin, Intact, no rashes, no lesions, no erythema NEUROLOGIC: Cranial Nerves II-XII are intact, no focal deficits PSYCHIATRIC: Mood and affect are normal LABORATORY DATA: Please see below MICROBIOLOGY: UA+, UCx pending IMAGING: Echocardiogram 11/17/20: F/u official report Renal US: No hydronephrosis. Multiple innumerable cysts left kidney. There are also several cysts of the right kidney. Increased echotexture of the kidneys suggests medical renal disease. CXR: chronic changes, no definite acute infiltrate ASSESSMENT: 75 y/o F with PMH of chronic hypoxic respiratory failure (uses 2L at baseline), CAD s/p NV (x3, x12 stents), Paroxysmal A. fib, Pacemaker / AICD (2012), Stroke (2014), Brain aneurysm (no intervention), Myasthenia Gravis , Fibromyalgia, Depression, Anxiety, Spinal stenosis, Arthritis, Tremors and GERD admitted for hypotension likely multifactorial to dehydration and beta-blockade from beta yadiel, NALLELY on CKD likely secondary to hypoperfusion, dehydration and medications combined. PLAN: NALLELY on CKD likely secondary to hypoperfusion, dehydration and medications and now likely polycystic kidney disease -Cr 3.12 -Continue to hold all nephrotoxic meds, antihypertensives for now -Per Nephrology, may require HD in future if does not improve. This was to be discussed with patient by nephrology team. -F/u daily labs -Nephrology following UTI -Keflex Po -F/u UCx Increased weakness likely acute on chronic 2/2 to issues above, chronic deconditioning -Hx of myasthenia gravis but not in exacerbation/flare -PT: Pt is deconditioned at this time and will benefit from skilled PT during acute hospitalization to improve balance and ambulation tolerance -C/w PT/OT -Optimize nutrition Chronic hypoxic respiratory failure -Saturating well on 2 L NC (home amount of O2) -CXR: chronic changes -Denies the diagnosis of COPD -Continue with inhaled therapy HFpEF, not currently in exacerbation -Extension cardiac disease mentioned above -BNP 1122, likely chronically -Trop neg x 3 -Echo 2014: EF 55%. -F/u new echocardiogram -Holding BB, ARB/ACEi, diuretics for now CAD s/p NV x 3, 12 stents placed -Denies chest pain, incr shortness of breath -Trop neg -AICD interrogated in ER, to f/u with cardiology -ECG baseline abnormal -History of NV x3, x12 stents, most recent 2009 -Holding ACEi/ARB, diuretics, BB. -C/w statin, ASA Paroxysmal A. fib -HR 70's -c/w Digoxin, ASA 81 Stroke (2014) - c/w ASA, statin Brain aneurysm - Patient reported that no intervention was required Myasthenia Gravis/ Parkinson's disease -Follows o/p with neurology Macrocytic anemia -c/w Vitamin B12 Fibromyalgia / Depression / Anxiety -Currently stable -C/w Gabapentin, Sertraline, Bupropion, Clonazepam Spinal stenosis / Arthritis -c/w Tylenol PRN Calcium / Vitamin D deficiency -c/w Vitamin D and Calcium carbonate GERD -C/w PPI DVT px -Heparin SC Resolved issues: Hypotension likely multifactorial to dehydration and hypoperfusion from beta- blockade Bradycardia likely 2/2 to beta-blockade from beta yadiel DISPOSITION: Admitted as inpatient. PT/OT, monitored by nephrology closely. VS, I&O, 24H, Reji Vital Signs/I&O Vital Signs Date Time Temp Pulse Resp B/P (MAP) Pulse Ox O2 Delivery O2 Flow Rate FiO2 11/19/20 13:10 17 11/19/20 12:00 2.0 11/19/20 12:00 97.9 76 150/67 (94) 98 Nasal Cannula I&O- Last 24 Hours up to 6 AM 11/19/20 06:00 Intake Total 1980 ml Output Total 300 ml Balance 1680 ml Laboratory Data 24H LABS Laboratory Tests 2 11/19/20 05:04: Nucleated Red Blood Cells % (auto) 0.0, Anion Gap 5L, Glomerular Filtration Rate 15.5L, Calcium Level 7.9L, Total Bilirubin 0.2, Aspartate Amino Transf (AST/SGOT) 11, Alanine Aminotransferase (ALT/SGPT) < 6L, Alkaline Phosphatase 89, Total Protein 5.8L, Albumin 2.6L, Albumin/Globulin Ratio 0.8L CBC/BMP Laboratory Tests 11/19/20 05:04 Microbiology Microbiology 11/19/20 Urine Culture, Received Pending Current Medications Current Medications Medications (Trade) Dose Ordered Sig/Jorden Route PRN Reason Start Time Stop Time Status Last Admin Dose Admin Acetaminophen/ Codeine Phosphate (Tylenol/Codeine #3 Tablet) 1 ea Q6H PRN PO PAIN 11/17/20 16:45 11/19/20 12:23 Albuterol Sulfate (Proventil, Ventolin Hfa) 2 puff Q4H PRN INH SOB/WHEEZING 11/17/20 16:45 Albuterol/ Ipratropium (Duoneb (Ipr 0.5mg/Alb 2.5mg)) 3 ml QID PRN INH SHORTNESS OF BREATH 11/17/20 16:45 Aspirin (Ecotrin) 81 mg DAILY PO 11/18/20 09:00 11/19/20 08:59 Bupropion HCl (Wellbutrin Sr) 100 mg DAILY PO 11/18/20 09:00 11/19/20 08:59 Carbidopa/Levodopa (Sinemet 25/100) 1 tab 0900,1200,1500,1800 PO 11/17/20 18:00 11/19/20 12:23 Cephalexin Monohydrate (Keflex) 500 mg BID PO 11/19/20 09:00 11/19/20 08:59 Clonazepam (KlonoPIN) 0.5 mg DAILY@1500 PO 11/18/20 15:00 11/19/20 12:11 DC 11/18/20 15:22 Clonazepam (KlonoPIN) 0.5 mg QHS PO 11/17/20 21:00 11/19/20 12:11 DC 11/18/20 21:11 Clonazepam (KlonoPIN) 0.5 mg TID@0900,1500,2100 PO 11/19/20 15:00 Cyanocobalamin (Vitamin B12) 500 mcg DAILY PO 11/18/20 09:00 11/19/20 08:59 Digoxin (Lanoxin) 0.125 mg DAILY PO 11/18/20 09:00 11/18/20 08:16 DC Digoxin (Lanoxin) 0.125 mg MoWeFr@0900 PO 11/19/20 09:00 11/19/20 08:59 Dobutamine HCl 330057 mcg/IV Miscellaneous Supplies 250 ml @ 6 mls/hr DRIP IV 11/17/20 15:30 11/17/20 15:58 DC Gabapentin (Neurontin) 600 mg QHS PO 11/17/20 21:00 11/18/20 21:10 Heparin Sodium (Porcine) (Heparin) 5,000 units Q8H SC 11/17/20 22:00 11/19/20 09:00 Home Med (Med Rec Complete!) ASDIRECTED XX 11/17/20 16:15 11/17/20 16:12 DC Iron 100 mg/ Sodium Chloride 105 ml @ 105 mls/hr DAILY IV 11/18/20 09:00 11/18/20 12:59 DC Iron 100 mg/ Sodium Chloride 105 ml @ 105 mls/hr Q24H IV 11/18/20 15:00 11/18/20 16:00 Omeprazole (PriLOSEC) 40 mg DAILY PO 11/18/20 09:00 11/19/20 08:59 Rosuvastatin Calcium (Crestor) 40 mg QHS PO 11/17/20 21:00 11/18/20 21:11 Sertraline HCl (Zoloft) 100 mg DAILY PO 11/18/20 09:00 11/19/20 08:59 Sodium Chloride 1,000 ml @ 85 mls/hr [id number] IV 11/17/20 18:00 11/18/20 11:39 DC 11/18/20 09:09 Sodium Chloride 1,000 ml @ 125 mls/hr Q8H IV 11/17/20 16:00 11/17/20 16:07 DC Allergies Coded Allergies: bee venom protein (honey bee) (Verified Allergy, Severe, ANAPHYLAXIS, 11/17/20) strawberry (Verified Allergy, Severe, ANAPHYLAXIS, 11/17/20) caffeine (Verified Adverse Reaction, Intermediate, heart palpitations, 11/17/20) Mari Blas MD Nov 19, 2020 14:58
[2020-11-19] MEDS: clonazePAM 0.5 MG TAB PO SCH ×2 (15:00→21:26)
[2020-11-19] MEDS ORDERED: cefTRIAXone SOD 1 GM in D5W MINI-BAG PLUS 50 ML IV SCH (15:00)
[2020-11-19] MEDS: IRON SUCROSE 100 MG in NS 100 ML IV SCH (15:00)
[2020-11-19 16:00] VITALS: BP 131/63
[2020-11-19 20:00] VITALS: BP 159/76
[2020-11-19] MEDS: ROSUVASTATIN 10 MG TAB (CRESTOR) PO SCH (21:26)
[2020-11-19] MEDS: GABAPENTIN 300 MG CAP PO SCH (21:26)
--- NOTE | 2020-11-19 23:26 | IPN ---
NEPHROLOGY PROGRESS NOTE DATE: 11/19/2020 SUBJECTIVE: The patient was seen and examined at the bedside today. The patient is afebrile, hemodynamically stable. She reports that she feels slightly better today as compared with yesterday. Her renal function is very slightly better today as compared with yesterday. Urine output is still not recorded. She states that she is voiding more, but it is not being documented. Her bradycardia has resolved now. OBJECTIVE: VITAL SIGNS: Temperature is 98 degrees Fahrenheit, blood pressure 131/63, pulse is 75, respiratory rate of 16, saturating 94% on nasal cannula at 2 liters. INTAKE AND OUTPUT: There is no urine output recorded. Weight in the bed scale is 73.4 kg. PHYSICAL EXAMINATION: GENERAL APPEARANCE: The patient is awake, alert, oriented x3, laying in bed in no apparent distress. HEAD AND NECK: Extraocular muscles intact. Pupils are equally round and reactive to light. Mucous membranes are moist. Neck is supple. There is mildly elevated jugular venous distention. CARDIOVASCULAR: S1, S2, regular rate. EXTREMITIES: No edema of the bilateral lower extremities. RESPIRATORY: Chest is clear to auscultation bilaterally. Bilaterally currently no rales or rhonchi. ABDOMEN: Soft, positive bowel sounds, nontender, no organomegaly. GENITOURINARY: No clubbing or cyanosis. Pulses are 2+. CHIEF WHEELAGE CLERK: No focal deficits. Power is 5/5 in all extremities. LAB REVIEW: CBC showed a WBC of 6.7, hemoglobin 8.7, platelet count 200. BMP showed sodium 142, potassium 4.4, chloride 113, bicarbonate 24, BUN 35, creatinine is 3.1. It was 3.3 yesterday. Calcium is 7.9. Albumin is 2.6. CURRENT INPATIENT MEDICATIONS: The patient's medications were all reviewed by myself. She has been started on Ancef. Klonopin has been stopped. No other significant change in the medications today as compared with yesterday. ASSESSMENT AND PLAN: 1. Acute renal failure superimposed on chronic kidney disease it is multifactorial secondary to dehydration, bradycardia, hypoperfusion, and she has baseline polycystic kidney disease. I want to exactly measure her urine output. I have requested the nursing staff to place a Mendez catheter because about 2 months ago the patient's renal function was significant better. The patient does not need any urgent hemodialysis at this time. 2. Polycystic kidney - The patient most likely has autosomal dominant polycystic kidney disease since she has aneurysms in the brain as well. Management is medical only at this time. No need of genetic testing. 3. Bradycardia beta blockers have been stopped. Bradycardia has resolved now. 4. History of heart failure with preserved ejection fraction Entresto and loop diuretics are on hold because of acute renal failure. 5. Coronary artery disease status post 12 stents in the past avoid use of chaparro inhibitors and urotensin receptor blockers at this time. Beta blockers have been stopped because of bradycardia. Okay to continue Aspirin and statins. 6. Iron deficiency anemia - continue current dose of Venofer.
[2020-11-20] VITALS (7 sets, daily range): BP systolic 141–157; BP diastolic 63–70
[2020-11-20] MEDS: HEPARIN SOD (PORCINE) 5000UNITS/ML 1ML VIAL/SYRINGE SC SCH ×3 (05:33→22:09)
[2020-11-20 05:49] LABS: HEMATOCRIT 30.6 % (36.0-47.0); HEMOGLOBIN 9.3 g/dl (12.0-15.5); MEAN CORPUSCULAR HEMOGLOBIN 29.8 pg (27.0-33.0); MEAN CORPUSCULAR HGB CONC 30.4 g/dl (32.0-36.5); MEAN CORPUSCULAR VOLUME 98.1 fl (80.0-96.0); PLATELET COUNT, AUTOMATED 200 10^3/uL (150-450); RED BLOOD COUNT 3.12 10^6/uL (4.00-5.40); WHITE BLOOD COUNT 8.2 10^3/uL (4.0-10.0)
[2020-11-20 06:28] LABS: ALBUMIN 2.6 GM/DL (3.2-5.2); BILIRUBIN,TOTAL 0.2 MG/DL (0.2-1.0); CALCIUM LEVEL 8.4 MG/DL (8.8-10.2); CREATININE FOR GFR 2.63 MG/DL (0.55-1.30); DIGOXIN LEVEL 0.4 NG/ML (0.5-2.0); GLOMERULAR FILTRATION RATE 18.9 (>39); POTASSIUM SERUM 4.5 MEQ/L (3.5-5.1); TOTAL PROTEIN 6.2 GM/DL (6.4-8.2)
[2020-11-20] MEDS: CEPHALEXIN 500 MG CAP PO SCH (09:17)
[2020-11-20] MEDS: buPROPion (WELLBUTRIN SR) 100 MG SR TAB PO SCH (09:17)
[2020-11-20] MEDS: clonazePAM 0.5 MG TAB PO SCH ×3 (09:17→20:14)
[2020-11-20] MEDS: OMEPRAZOLE 20 MG CAP PO SCH (09:17)
[2020-11-20] MEDS: SERTRALINE 100 MG TAB PO SCH (09:17)
[2020-11-20] MEDS: SINEMET 25-100 MG TAB PO SCH ×4 (09:17→18:38)
[2020-11-20] MEDS: ASPIRIN 81 MG ENTERIC TAB PO SCH (09:17)
[2020-11-20] MEDS: CYANOCOBALAMIN 500 MCG TAB PO SCH (09:17)
--- NOTE | 2020-11-20 11:42 | REP ---
INDICATION: SOB. COMPARISON: 11/17/2020. TECHNIQUE: SINGLE PORTABLE AP VIEW OF THE CHEST WAS PERFORMED. FINDINGS: There is no change since the prior exam. Chronic fibrotic changes are again seen bilaterally, with no new infiltrate visualized. Heart mediastinum are unchanged. Left single lead pacemaker is unchanged. IMPRESSION: NO ACUTE PULMONARY DISEASE.Stable exam. <Electronically signed by Danial Garcia > 11/20/20 113
[2020-11-20] MEDS ORDERED: FUROSEMIDE 100MG/10ML VIAL (J1940) IV ONE (11:45)
[2020-11-20] MEDS ORDERED: POTASSIUM CHLORIDE 10 MEQ SR TABLET PO ONE (13:00)
--- NOTE | 2020-11-20 13:58 | IPNPDOC ---
Date Seen The patient was seen on 11/20/20. Progress Note SUBJECTIVE: Generalized weakness today. Discussed with Dr. Grullon who suggested CT's to r/o spinal cord injury with recent hypotension, r/o ischemic damage to cord. Hx of documented myasthenia gravis; however, when reviewed studies with neurology, this does not seem to be a current diagnosis. Neurology to discuss with colleague. Cr slightly improved. Worsening CHF, CXR showed no acute changes, given one time dose lasix by nephrology. -1350/24hrs. She denies chest pain, n/v/d. OBJECTIVE: PHYSICAL EXAMINATION: VS: Please see below CONSTITUTIONAL: Appears lethargic, laying in bed, awake when awoke and O x 3 EYES: PERRLA, EOM intact HENT, MOUTH: Normocephalic, atraumatic, dry mucous membranes NECK: SUPPLE, no JVD, no lymphadenopathy, no carotid bruit CV: sinus, S1S2 normal, no murmurs/rubs/gallops RESPIRATORY: Clear to auscultation bilaterally, no rales/rhonchi/wheezes GI: BS positive in 4 quadrants, soft, nontender, nondistended, no rebound or guarding, no organomegaly : Deferred MUSCULOSKELETAL:No cyanosis, clubbing, swelling, joint deformity, extremity edema INTEGUMENTARY: Dry skin, Intact, no rashes, no lesions, no erythema NEUROLOGIC: Cranial Nerves II-XII are intact, no focal deficits. Reflexes in tact. Increased weakness 4/5 in all ext. PSYCHIATRIC: Mood and affect are normal LABORATORY DATA: Please see below MICROBIOLOGY: UCx: NG IMAGING: Echocardiogram 11/17/20: EF 50% Normal sinus rhythm at 67 BPM. No intraventricular conduction disturbance. M-mode and two-dimensional echocardiography was performed with pulse, continuous wave, color flow, and tissue Doppler studies. Slightly dilated and borderline hypertrophied left ventricle with proximal inferior akinesis, but other wall motion was normal. Moderately dilated left atrium with grade 1 LV diastolic dysfunction and current estimated mean left atrial pressure slightly increased. Normal right ventricular chamber size, but wall thickness appeared to be increased with normal right ventricular free wall motion and Doppler evidence ofat least moderate pulmonary hypertension. At least mildly dilated right atrium, but normal IVC size and collapse against an elevated central venous pressure at this time. Normal aortic dimensions. Mild aortic valvular sclerosis without stenosis and very mild insufficiency. Mild degenerative changes of the mitral valve apparatus without inflow tract obstruction and only mild insufficiency. Normal appearing tricuspid valve with moderate tricuspid insufficiency. Pacing lead could be visualized traversing right heart structures, but no separate intracardiac mass. No pericardial effusion. Renal US: No hydronephrosis. Multiple innumerable cysts left kidney. There are also several cysts of the right kidney. Increased echotexture of the kidneys suggests medical renal disease. CXR: chronic changes, no definite acute infiltrate ASSESSMENT: 75 y/o F with PMH of chronic hypoxic respiratory failure (uses 2L at baseline), CAD s/p NE (x3, x12 stents), Paroxysmal A. fib, Pacemaker / AICD (2012), Stroke (2014), Brain aneurysm (no intervention), Myasthenia Gravis , Fibromyalgia, Depression, Anxiety, Spinal stenosis, Arthritis, Tremors and GERD admitted for hypotension likely multifactorial to dehydration and beta-blockade from beta yadiel, NALLELY on CKD likely secondary to hypoperfusion, dehydration and medications combined. PLAN: Generalized weakness, acute on chronic -Hx of myasthenia gravis and chronic physical deconditioning ; however, upon discussion and review of labs with neurology this does not still seem to be a diagnosis she carries -Reflexes still present to unlikely Guillan-Fairchance' -Due to recent time period of hypoperfusion, concern is possible ischemic spinal cord injury -F/u CT spine, CT head -Neuro checks Q4hrs -Holding off on PT/OT -Neurology consulted to see HFpEF -Remains on home O2 but has been off diuretics and other cardiac meds due to NALLELY, hypotension on admission -Echo above, preserved EF at 50%, similar to prior on file -BNP 1122--> 2589, has not been receiving diuretics and did receive fluids on admission but still in neg fluid balance -Trop neg x 3 -Given 1 x dose lasix by nephrology today -Consider restarting BB. Continue to hole ARB/ACEi, standing dose diuretic for now -Monitor I&O's closely, daily wt, low salt diet NALLELY on CKD likely secondary to hypoperfusion, dehydration, medications and likely AD polycystic kidney disease -Cr improved further today 2.63, in neg fluid balance -Continue to hold all nephrotoxic meds, antihypertensives for now -F/u daily labs -Nephrology following Chronic hypoxic respiratory failure -Saturating well on 2 L NC (home amount of O2) -CXR: chronic changes -Denies the diagnosis of COPD -Continue with inhaled therapy CAD s/p NE x 3, 12 stents placed -Denies chest pain, incr shortness of breath -Trop neg -AICD interrogated in ER, to f/u with cardiology -ECG baseline abnormal -Echo above -History of NE x3, x12 stents, most recent 2009 -Holding ACEi/ARB, diuretics, BB. -C/w statin, ASA Paroxysmal A. fib -HR increased to 90's today -Consider adding back BB -c/w Digoxin, ASA 81 Stroke (2014) - c/w ASA, statin Brain aneurysm - Patient reported that no intervention was required Myasthenia Gravis/ Parkinson's disease -Follows o/p with neurology Macrocytic anemia -c/w Vitamin B12 Fibromyalgia / Depression / Anxiety -Currently stable -C/w Gabapentin, Sertraline, Bupropion, Clonazepam Spinal stenosis / Arthritis -c/w Tylenol PRN Calcium / Vitamin D deficiency -c/w Vitamin D and Calcium carbonate GERD -C/w PPI DVT px -Heparin SC Resolved issues: Hypotension likely multifactorial to dehydration and hypoperfusion from beta- blockade Bradycardia likely 2/2 to beta-blockade from beta yadiel DISPOSITION: Neuro consulted today and will see, f/u w/u above. Nephrology following closely. PT/OT to resume after weekend if able. VS, I&O, 24H, Fishbone Vital Signs/I&O Vital Signs Date Time Temp Pulse Resp B/P (MAP) Pulse Ox O2 Delivery O2 Flow Rate FiO2 11/20/20 12:00 98.5 92 18 143/63 (89) 94 Nasal Cannula 2.0 I&O- Last 24 Hours up to 6 AM 11/20/20 06:00 Intake Total 120 ml Output Total 2475 ml Balance -2355 ml Laboratory Data 24H LABS Laboratory Tests 2 11/20/20 05:26: Nucleated Red Blood Cells % (auto) 0.0, Anion Gap 4L, Glomerular Filtration Rate 18.9L, Calcium Level 8.4L, Total Bilirubin 0.2, Aspartate Amino Transf (AST/SGOT) 11, Alanine Aminotransferase (ALT/SGPT) 8L, Alkaline Phosphatase 82, CM-Hoy-H-Type Natriuretic Peptide 2589H, Total Protein 6.2L, Albumin 2.6L, Albumin/Globulin Ratio 0.7L, Digoxin Level 0.4L CBC/BMP Laboratory Tests 11/20/20 05:26 Microbiology Microbiology 11/19/20 Urine Culture - Final, Complete Current Medications Current Medications Medications (Trade) Dose Ordered Sig/Jorden Route PRN Reason Start Time Stop Time Status Last Admin Dose Admin Acetaminophen/ Codeine Phosphate (Tylenol/Codeine #3 Tablet) 1 ea Q6H PRN PO PAIN 11/17/20 16:45 11/19/20 21:44 Albuterol Sulfate (Proventil, Ventolin Hfa) 2 puff Q4H PRN INH SOB/WHEEZING 11/17/20 16:45 Albuterol/ Ipratropium (Duoneb (Ipr 0.5mg/Alb 2.5mg)) 3 ml QID PRN INH SHORTNESS OF BREATH 11/17/20 16:45 Aspirin (Ecotrin) 81 mg DAILY PO 11/18/20 09:00 11/20/20 09:17 Bupropion HCl (Wellbutrin Sr) 100 mg DAILY PO 11/18/20 09:00 11/20/20 09:17 Carbidopa/Levodopa (Sinemet 25/100) 1 tab 0900,1200,1500,1800 PO 11/17/20 18:00 11/20/20 12:20 Ceftriaxone Sodium 1 gm/ Dextrose 50 ml @ 100 mls/hr Q24H IV 11/19/20 15:00 11/19/20 14:58 DC Cephalexin Monohydrate (Keflex) 500 mg BID PO 11/19/20 09:00 11/20/20 09:17 Clonazepam (KlonoPIN) 0.5 mg DAILY@1500 PO 11/18/20 15:00 11/19/20 12:11 DC 11/18/20 15:22 Clonazepam (KlonoPIN) 0.5 mg QHS PO 11/17/20 21:00 11/19/20 12:11 DC 11/18/20 21:11 Clonazepam (KlonoPIN) 0.5 mg TID@0900,1500,2100 PO 11/19/20 15:00 11/20/20 09:17 Cyanocobalamin (Vitamin B12) 500 mcg DAILY PO 11/18/20 09:00 11/20/20 09:17 Digoxin (Lanoxin) 0.125 mg DAILY PO 11/18/20 09:00 11/18/20 08:16 DC Digoxin (Lanoxin) 0.125 mg MoWeFr@0900 PO 11/19/20 09:00 11/19/20 08:59 Dobutamine HCl 346772 mcg/IV Miscellaneous Supplies 250 ml @ 6 mls/hr DRIP IV 11/17/20 15:30 11/17/20 15:58 DC Gabapentin (Neurontin) 600 mg QHS PO 11/17/20 21:00 11/19/20 21:26 Heparin Sodium (Porcine) (Heparin) 5,000 units Q8H SC 11/17/20 22:00 11/20/20 05:33 Home Med (Med Rec Complete!) ASDIRECTED XX 11/17/20 16:15 11/17/20 16:12 DC Iron 100 mg/ Sodium Chloride 105 ml @ 105 mls/hr DAILY IV 11/18/20 09:00 11/18/20 12:59 DC Iron 100 mg/ Sodium Chloride 105 ml @ 105 mls/hr Q24H IV 11/18/20 15:00 11/19/20 15:00 Omeprazole (PriLOSEC) 40 mg DAILY PO 11/18/20 09:00 11/20/20 09:17 Rosuvastatin Calcium (Crestor) 40 mg QHS PO 11/17/20 21:00 11/19/20 21:26 Sertraline HCl (Zoloft) 100 mg DAILY PO 11/18/20 09:00 11/20/20 09:17 Sodium Chloride 1,000 ml @ 85 mls/hr [id number] IV 11/17/20 18:00 11/18/20 11:39 DC 11/18/20 09:09 Sodium Chloride 1,000 ml @ 125 mls/hr Q8H IV 11/17/20 16:00 11/17/20 16:07 DC Allergies Coded Allergies: bee venom protein (honey bee) (Verified Allergy, Severe, ANAPHYLAXIS, 11/17/20) strawberry (Verified Allergy, Severe, ANAPHYLAXIS, 11/17/20) caffeine (Verified Adverse Reaction, Intermediate, heart palpitations, 11/17/20) Mari Blas MD Nov 20, 2020 13:58
[2020-11-20] MEDS: bisoproloL fumarate 5 MG TAB PO SCH (14:14)
--- NOTE | 2020-11-20 14:55 | REP ---
INDICATION: incr weakness, r/o cord injury. COMPARISON: 09/28/2020. TECHNIQUE: Axial images obtained, with sagittal and coronal reconstruction images. FINDINGS: No acute fracture or dislocation is seen. There is an old moderate compression deformity of T12, unchanged. There is stable anterolisthesis of L3 on L4. There is moderately severe disc space narrowing with subchondral sclerosis and vacuum phenomenon again noted at that level. There is very mild disc space narrowing with vacuum at L4-5. There is sclerosis and spurring diffusely at the posterior facet joints. Mild curvature toward the left. There is evidence of prior laminectomy at L3 through L5. Foraminal narrowing at L3-4 and L4-5 is unchanged. IMPRESSION: Chronic compression deformity of T12 is stable. There are stable arthritic changes of the lumbar spine as discussed in detail above with no new compression deformity. <Electronically signed by Danial Garcia > 11/20/20 [id number]
--- NOTE | 2020-11-20 15:00 | IPNPDOC ---
Subjective Date Seen The patient was seen on 11/20/20. Subjective Chief Complaint/HPI Patient is seen at bedside today. She has increased work of breathing. She states that she is not feeling well. She reports feeling very weak. Patient's brother called pt while we were at bedside. She would like us to contact his brother with any new information. Nursing staff reports no overnight events. General: Reports: Fatigue, Malaise; Denies: ROS Unobtainable, Chills, Night Sweats, Normal Appetite, Other Symptoms Constitutional: Reports: Weakness, Fatigue, Lethargy; Denies: Chills, Fever, Malaise, Night Sweats, Weight Loss, Other Pulmonary: Reports: Dyspnea Cardiovascular: Denies: Chest Pain, Palpitations Objective Physical Examination General Exam: Positive: Alert, Cooperative, Moderate Distress (she is lethargic.) Eye Exam: Positive: Conjunctiva & lids normal ENT Exam: Positive: Atraumatic, Mucous membr. moist/pink Neck Exam: Positive: Supple Chest Exam: Positive: Rales (, inspiratory crackles), Wheezing (expiratory), Diminished (increased work of breathing) Heart Exam: Positive: Rate Normal, Regular Rhythm; Negative: Gallops, Murmurs, Rubs Abdomen Exam: Positive: Normal bowel sounds, Soft; Negative: Tenderness Extremity Exam: Positive: Edema (+1 pitting edema) Assessment /Plan Assessment # Acute decompensation on CHF with preserved ejection fraction: Entresto and loop diuretics were on hold due to acute renal failure. 60 mg of IV Lasix has been administered due to patient's clinical appearance of decompensation of long-standing CHF. Another dose of IV Lasix will be given. Orders have been placed. Portable chest x-ray was ordered. Into need to monitor work of breathing closely. # Acute renal failure on chronic kidney disease: Secondary to dehydration, bradycardia, and hypoperfusion. Mendez catheter was placed and patient's urinary output is good. The patient does not need any urgent hemodialysis at this time. # Polycystic kidney: Possibly autosomal dominant, patient also has aneurysms in the brain. Medical management only at this time. No need of genetic testing. # Bradycardia: Resolved yesterday. Beta blockers have been resumed this morning. # Coronary artery disease s/p 12 stents: avoid use of chaparro-inhibitors and urotensin receptor blockers at this time. Beta blockers have been restarted. Okay to continue Aspirin and statins. # Iron deficiency anemia: continue current dose of Venofer. Plan/VTE VTE Prophylaxis Ordered?: Yes (patient is on heparin and aspirin.) GME ATTESTATION My faculty preceptor for this patient encounter was physically present during the encounter and was fully available. All aspects of the patient interview, examination, medical decision making process, and medical care plan development were reviewed and approved by the faculty preceptor. The faculty preceptor is aware and concurs with the plan as stated in the body of this note and will attest to such by his/her cosignature. VS, I&O, 24H, Fishbone Vital Signs/I&O Vital Signs Date Time Temp Pulse Resp B/P (MAP) Pulse Ox O2 Delivery O2 Flow Rate FiO2 11/20/20 14:14 92 143/63 11/20/20 12:00 98.5 18 94 Nasal Cannula 2.0 I&O- Last 24 Hours up to 6 AM 11/20/20 06:00 Intake Total 120 ml Output Total 2475 ml Balance -2355 ml Laboratory Data 24H LABS Laboratory Tests 2 11/20/20 05:26: Nucleated Red Blood Cells % (auto) 0.0, Anion Gap 4L, Glomerular Filtration Rate 18.9L, Calcium Level 8.4L, Total Bilirubin 0.2, Aspartate Amino Transf (AST/SGOT) 11, Alanine Aminotransferase (ALT/SGPT) 8L, Alkaline Phosphatase 82, [id number]-Type Natriuretic Peptide 2589H, Total Protein 6.2L, Albumin 2.6L, Albumin/Globulin Ratio 0.7L, Digoxin Level 0.4L CBC/BMP Laboratory Tests 11/20/20 05:26 Microbiology Microbiology 11/19/20 Urine Culture - Final, Complete Attending Note Attending Note Polycystic kidneys NALLELY on CKD Acute CHF exacerbation Urinary retention Cont Mendez. Lasix 60 mg IV stat given. CXR ordered and result reviewed. Agustin Fry DO Nov 20, 2020 15:00 EDOUARD FRY MD Nov 21, 2020 16:29
--- NOTE | 2020-11-20 15:47 | REP ---
INDICATION: incr weakness, r/o cord injury. COMPARISON: 09/28/2020. TECHNIQUE: CT cervical spine performed in the axial plane, with sagittal and coronal reconstruction images performed. FINDINGS: There is no acute fracture or malalignment. There is no change since the prior exam. There is no prevertebral soft tissue swelling. There is [id number] disc space narrowing with subchondral sclerosis at C 5-6 and C6-7 with mild associated spurring. No abnormal densities seen in the spinal canal. IMPRESSION: Stable degenerative changes. No acute findings identified. <Electronically signed by Danial Garcia > 11/20/20 [id number]
--- NOTE | 2020-11-20 15:47 | REP ---
INDICATION: incr weakness, r/o cord injury. COMPARISON: 09/27/2020. TECHNIQUE: CT BRAIN PERFORMED IN THE AXIAL PLANE. CORONAL RECONSTRUCTION IMAGES ARE PERFORMED. FINDINGS: There is moderate atrophy again noted. There is no midline shift or mass effect. There again chronic periventricular small vessel ischemic changes in the white matter and a small lacunar infarct in the right caudate. There is no acute intracranial hemorrhage. There is no extra-axial fluid collection. There are vascular calcifications in the carotid siphons. There is partial opacification of left mastoid air cells inferiorly. This may indicate some degree of mastoiditis. This is similar to the prior exam. IMPRESSION: Stable chronic findings. No acute intracranial hemorrhage, midline shift or mass effect. <Electronically signed by Danial Garcia > 11/20/20 [id number]
[2020-11-20] MEDS: IRON SUCROSE 100 MG in NS 100 ML IV SCH (16:20)
[2020-11-20] MEDS ORDERED: FUROSEMIDE 40MG/4ML VIAL (J1940) IV ONE (20:00)
[2020-11-20] MEDS: GABAPENTIN 300 MG CAP PO SCH (20:14)
[2020-11-20] MEDS: ROSUVASTATIN 10 MG TAB (CRESTOR) PO SCH (20:14)
[2020-11-20] MEDS: ACETAMINOPH W/CODEINE #3 TAB UD PO PRN (21:52)
[2020-11-21] VITALS: BP 131/63
[2020-11-21 04:00] VITALS: BP 128/62
[2020-11-21 06:27] LABS: HEMATOCRIT 35.6 % (36.0-47.0); HEMOGLOBIN 10.3 g/dl (12.0-15.5); MEAN CORPUSCULAR HGB CONC 28.9 g/dl (32.0-36.5); MEAN CORPUSCULAR VOLUME 100.3 fl (80.0-96.0); PLATELET COUNT, AUTOMATED 217 10^3/uL (150-450); RED BLOOD COUNT 3.55 10^6/uL (4.00-5.40); WHITE BLOOD COUNT 11.7 10^3/uL (4.0-10.0)
[2020-11-21] MEDS: HEPARIN SOD (PORCINE) 5000UNITS/ML 1ML VIAL/SYRINGE SC SCH ×3 (06:27→22:00)
[2020-11-21 07:00] LABS: ALBUMIN 2.6 GM/DL (3.2-5.2); BILIRUBIN,TOTAL 0.3 MG/DL (0.2-1.0); CALCIUM LEVEL 8.7 MG/DL (8.8-10.2); CREATININE FOR GFR 2.81 MG/DL (0.55-1.30); GLOMERULAR FILTRATION RATE 17.5 (>39); POTASSIUM SERUM 4.7 MEQ/L (3.5-5.1); TOTAL PROTEIN 6.4 GM/DL (6.4-8.2)
[2020-11-21 08:00] VITALS: BP 120/80
[2020-11-21] MEDS: ASPIRIN 81 MG ENTERIC TAB PO SCH (08:13)
[2020-11-21] MEDS: CYANOCOBALAMIN 500 MCG TAB PO SCH (08:14)
[2020-11-21] MEDS: SINEMET 25-100 MG TAB PO SCH ×4 (08:14→18:14)
[2020-11-21] MEDS: OMEPRAZOLE 20 MG CAP PO SCH (08:14)
[2020-11-21] MEDS: SERTRALINE 100 MG TAB PO SCH (08:14)
[2020-11-21] MEDS: buPROPion (WELLBUTRIN SR) 100 MG SR TAB PO SCH (08:14)
[2020-11-21] MEDS: clonazePAM 0.5 MG TAB PO SCH ×3 (08:15→20:11)
[2020-11-21] MEDS: bisoproloL fumarate 5 MG TAB PO SCH (08:15)
--- NOTE | 2020-11-21 09:23 | REP ---
INDICATION: chf. COMPARISON: 11/20/2020. TECHNIQUE: SINGLE PORTABLE AP VIEW OF THE CHEST WAS PERFORMED. FINDINGS: The lungs are unchanged in appearance with diffuse chronic increased interstitial markings. No new infiltrate is seen. There is mild cardiomegaly. There is calcification of the thoracic aorta. The mediastinal silhouette is unchanged. Left single lead pacemaker is unchanged. IMPRESSION: NO ACUTE PULMONARY DISEASE.Stable exam. <Electronically signed by Danial Garcia > 11/21/20 0919
[2020-11-21 12:00] VITALS: BP 139/68
--- NOTE | 2020-11-21 14:42 | IPNPDOC ---
Date Seen The patient was seen on 11/21/20. Progress Note SUBJECTIVE: All CT's ordered for generalized weakness, neg for acute findings. Cr slightly worsened likely 2/2 to lasix administration and net neg 3.7 L/24H. She denies chest pain, n/v/d. OBJECTIVE: PHYSICAL EXAMINATION: VS: Please see below CONSTITUTIONAL: More awake and alert today, O x 3 EYES: PERRLA, EOM intact HENT, MOUTH: Normocephalic, atraumatic, moist mucous membranes NECK: SUPPLE, no JVD, no lymphadenopathy, no carotid bruit CV: sinus, S1S2 normal, no murmurs/rubs/gallops RESPIRATORY: Clear to auscultation bilaterally, no rales/rhonchi/wheezes GI: BS positive in 4 quadrants, soft, nontender, nondistended, no rebound or guarding, no organomegaly : Mendez catheter MUSCULOSKELETAL:No cyanosis, clubbing, swelling, joint deformity, extremity edema INTEGUMENTARY: Dry skin, Intact, no rashes, no lesions, no erythema NEUROLOGIC: Cranial Nerves II-XII are intact, no focal deficits. Reflexes in tact. Increased weakness 4/5 in all ext. PSYCHIATRIC: Mood and affect are normal LABORATORY DATA: Please see below MICROBIOLOGY: UCx: NG IMAGING: Echocardiogram 11/17/20: EF 50% Normal sinus rhythm at 67 BPM. No intraventricular conduction disturbance. M-mode and two-dimensional echocardiography was performed with pulse, continuous wave, color flow, and tissue Doppler studies. Slightly dilated and borderline hypertrophied left ventricle with proximal inferior akinesis, but other wall motion was normal. Moderately dilated left atrium with grade 1 LV diastolic dysfunction and current estimated mean left atrial pressure slightly increased. Normal right ventricular chamber size, but wall thickness appeared to be increased with normal right ventricular free wall motion and Doppler evidence ofat least moderate pulmonary hypertension. At least mildly dilated right atrium, but normal IVC size and collapse against an elevated central venous pressure at this time. Normal aortic dimensions. Mild aortic valvular sclerosis without stenosis and very mild insufficiency. Mild degenerative changes of the mitral valve apparatus without inflow tract obstruction and only mild insufficiency. Normal appearing tricuspid valve with moderate tricuspid insufficiency. Pacing lead could be visualized traversing right heart structures, but no separate intracardiac mass. No pericardial effusion. Renal US: No hydronephrosis. Multiple innumerable cysts left kidney. There are also several cysts of the right kidney. Increased echotexture of the kidneys suggests medical renal disease. CXR: chronic changes, no definite acute infiltrate ASSESSMENT: 75 y/o F with PMH of chronic hypoxic respiratory failure (uses 2L at baseline), CAD s/p [place] (x3, x12 stents), Paroxysmal A. fib, Pacemaker / AICD (2012), Stroke (2015), Brain aneurysm (no intervention), Myasthenia Gravis , Fibromyalgia, Depression, Anxiety, Spinal stenosis, Arthritis, Tremors and GERD admitted for hypotension likely multifactorial to dehydration and beta-blockade from beta yadiel, NALLELY on CKD likely secondary to hypoperfusion, dehydration and medications combined. PLAN: Generalized weakness, acute on chronic -Hx of myasthenia gravis and chronic physical deconditioning ; however, upon discussion and review of labs with neurology this does not still seem to be a diagnosis she carries any longer -Neuro consulted and saw 11/20/20: unlikely neurological in etiology, possibly metabolic vs. acute on chronic deconditioning -Ischemic spinal cord injury unlikely with recent hypotension. -All CT's neg -Neuro checks neg -PT/OT NALLELY on CKD likely secondary to hypoperfusion, dehydration, medications and likely AD polycystic kidney disease -Cr slightly increased to 2.81 possibly 2/2 to 40 mg IV lasix administered 11/20/20 -Neg 3.7L/24H in neg fluid balance -Continue to hold other nephrotoxic meds, antihypertensives for now -Mendez in place -F/u daily labs -Nephrology following HFpEF -Remains on home O2 but has been off diuretics and other cardiac meds due to NALLELY, hypotension on admission -Echo above, preserved EF at 50%, similar to prior on file -BNP 1122--> 2589-->2676 today , S/p 40 mg IV lasix 11/20/20 -Trop neg x 3 -Restarted low dose bisoprolol. Continue to hole ARB/ACEi, standing dose diuretic for now -Monitor I&O's closely, daily wt, low salt diet Chronic hypoxic respiratory failure -Saturating well on 2 L NC (home amount of O2) -CXR: chronic changes -Denies the diagnosis of COPD -Continue with inhaled therapy CAD s/p [place] x 3, 12 stents placed -Denies chest pain, incr shortness of breath -Trop neg -AICD interrogated in ER, to f/u with cardiology -ECG baseline abnormal -Echo above -History of [place] x3, x12 stents, most recent 2009 -Holding ACEi/ARB, diuretics. -C/w bisoprolol, statin, ASA Paroxysmal A. fib -Rate controlled with HR 80's -c/w BB, Digoxin, ASA 81 Stroke (2014) - c/w ASA, statin, BP control Brain aneurysm - Patient reported that no intervention was required Parkinson's disease -Neurology does not think she ever had myasthenia gravis confirmed based off labs -Follows o/p with neurology Anemia, multifactorial to Vitamin B12, LOYDA -c/w Vitamin B12, venofer Fibromyalgia / Depression / Anxiety -Currently stable -C/w Gabapentin, Sertraline, Bupropion, Clonazepam Spinal stenosis / Arthritis -c/w Tylenol PRN Calcium / Vitamin D deficiency -c/w Vitamin D and Calcium carbonate GERD -C/w PPI DVT px -Heparin SC Resolved issues: Hypotension likely multifactorial to dehydration and hypoperfusion from beta- blockade Bradycardia likely 2/2 to beta-blockade from beta yadiel DISPOSITION: Nephrology following closely. PT/OT to resume after weekend if able. VS, I&O, 24H, [facility] Vital Signs/I&O Vital Signs Date Time Temp Pulse Resp B/P (MAP) Pulse Ox O2 Delivery O2 Flow Rate FiO2 11/21/20 12:00 98.0 80 18 139/68 (91) 94 Nasal Cannula 2.0 I&O- Last 24 Hours up to 6 AM 11/21/20 06:00 Intake Total 360 ml Output Total 4035 ml Balance -3675 ml Laboratory Data 24H LABS Laboratory Tests 2 11/21/20 06:00: Nucleated Red Blood Cells % (auto) 0.0, Anion Gap 7L, Glomerular Filtration Rate 17.5L, Calcium Level 8.7L, Total Bilirubin 0.3, Aspartate Amino Transf (AST/SGOT) 16, Alanine Aminotransferase (ALT/SGPT) 8L, Alkaline Phosphatase 75, EG-Dpa-B-Type Natriuretic Peptide 2676H, Total Protein 6.4, Albumin 2.6L, Albumin/Globulin Ratio 0.7L CBC/BMP Laboratory Tests 11/21/20 06:00 Microbiology Microbiology 11/19/20 Urine Culture - Final, Complete Current Medications Current Medications Medications (Trade) Dose Ordered Sig/Jorden Route PRN Reason Start Time Stop Time Status Last Admin Dose Admin Acetaminophen/ Codeine Phosphate (Tylenol/Codeine #3 Tablet) 1 ea Q6H PRN PO PAIN 11/17/20 16:45 11/20/20 21:52 Albuterol Sulfate (Proventil, Ventolin Hfa) 2 puff Q4H PRN INH SOB/WHEEZING 11/17/20 16:45 Albuterol/ Ipratropium (Duoneb (Ipr 0.5mg/Alb 2.5mg)) 3 ml QID PRN INH SHORTNESS OF BREATH 11/17/20 16:45 Aspirin (Ecotrin) 81 mg DAILY PO 11/18/20 09:00 11/21/20 08:13 Bisoprolol Fumarate (Zebeta) 2.5 mg DAILY PO 11/20/20 09:00 11/21/20 08:15 Bupropion HCl (Wellbutrin Sr) 100 mg DAILY PO 11/18/20 09:00 11/21/20 08:14 Carbidopa/Levodopa (Sinemet 25/100) 1 tab 0900,1200,1500,1800 PO 11/17/20 18:00 11/21/20 12:17 Ceftriaxone Sodium 1 gm/ Dextrose 50 ml @ 100 mls/hr Q24H IV 11/19/20 15:00 11/19/20 14:58 DC Cephalexin Monohydrate (Keflex) 500 mg BID PO 11/19/20 09:00 11/20/20 13:59 DC 11/20/20 09:17 Clonazepam (KlonoPIN) 0.5 mg DAILY@1500 PO 11/18/20 15:00 11/19/20 12:11 DC 11/18/20 15:22 Clonazepam (KlonoPIN) 0.5 mg QHS PO 11/17/20 21:00 11/19/20 12:11 DC 11/18/20 21:11 Clonazepam (KlonoPIN) 0.5 mg TID@0900,1500,2100 PO 11/19/20 15:00 11/20/20 20:14 Cyanocobalamin (Vitamin B12) 500 mcg DAILY PO 11/18/20 09:00 11/21/20 08:14 Digoxin (Lanoxin) 0.125 mg DAILY PO 11/18/20 09:00 11/18/20 08:16 DC Digoxin (Lanoxin) 0.125 mg MoWeFr@0900 PO 11/19/20 09:00 11/19/20 08:59 Dobutamine HCl 367949 mcg/IV Miscellaneous Supplies 250 ml @ 6 mls/hr DRIP IV 11/17/20 15:30 11/17/20 15:58 DC Gabapentin (Neurontin) 600 mg QHS PO 11/17/20 21:00 11/20/20 20:14 Heparin Sodium (Porcine) (Heparin) 5,000 units Q8H SC 11/17/20 22:00 11/21/20 14:06 Home Med (Med Rec Complete!) ASDIRECTED XX 11/17/20 16:15 11/17/20 16:12 DC Iron 100 mg/ Sodium Chloride 105 ml @ 105 mls/hr DAILY IV 11/18/20 09:00 11/18/20 12:59 DC Iron 100 mg/ Sodium Chloride 105 ml @ 105 mls/hr Q24H IV 11/18/20 15:00 11/20/20 16:20 Omeprazole (PriLOSEC) 40 mg DAILY PO 11/18/20 09:00 11/21/20 08:14 Rosuvastatin Calcium (Crestor) 40 mg QHS PO 11/17/20 21:00 11/20/20 20:14 Sertraline HCl (Zoloft) 100 mg DAILY PO 11/18/20 09:00 11/21/20 08:14 Sodium Chloride 1,000 ml @ 85 mls/hr [id number] IV 11/17/20 18:00 11/18/20 11:39 DC 11/18/20 09:09 Sodium Chloride 1,000 ml @ 125 mls/hr Q8H IV 11/17/20 16:00 11/17/20 16:07 DC Allergies Coded Allergies: bee venom protein (honey bee) (Verified Allergy, Severe, ANAPHYLAXIS, 11/17/20) strawberry (Verified Allergy, Severe, ANAPHYLAXIS, 11/17/20) caffeine (Verified Adverse Reaction, Intermediate, heart palpitations, 11/17/20) Mari Blas MD Nov 21, 2020 14:42
[2020-11-21] MEDS: IRON SUCROSE 100 MG in NS 100 ML IV SCH (15:04)
[2020-11-21] MEDS: ROSUVASTATIN 10 MG TAB (CRESTOR) PO SCH (20:11)
[2020-11-21] MEDS: GABAPENTIN 300 MG CAP PO SCH (20:11)
[2020-11-21 22:00] VITALS: BP 103/54
[2020-11-22] MEDS: HEPARIN SOD (PORCINE) 5000UNITS/ML 1ML VIAL/SYRINGE SC SCH ×3 (05:53→21:20)
[2020-11-22 06:00] VITALS: BP 103/60
[2020-11-22 06:27] LABS: HEMATOCRIT 29.4 % (36.0-47.0); HEMOGLOBIN 9.1 g/dl (12.0-15.5); PLATELET COUNT, AUTOMATED 221 10^3/uL (150-450); RED BLOOD COUNT 3.03 10^6/uL (4.00-5.40); WHITE BLOOD COUNT 11.7 10^3/uL (4.0-10.0)
[2020-11-22 06:53] LABS: ALBUMIN 2.6 GM/DL (3.2-5.2); BILIRUBIN,TOTAL 0.3 MG/DL (0.2-1.0); CALCIUM LEVEL 8.4 MG/DL (8.8-10.2); CREATININE FOR GFR 2.72 MG/DL (0.55-1.30); GLOMERULAR FILTRATION RATE 18.2 (>39); POTASSIUM SERUM 4.2 MEQ/L (3.5-5.1); TOTAL PROTEIN 6.1 GM/DL (6.4-8.2)
[2020-11-22] MEDS: BISOPROLOL FUM 2.5 MG PER 1/2TAB PO SCH (09:00)
[2020-11-22] MEDS: buPROPion (WELLBUTRIN SR) 100 MG SR TAB PO SCH (09:03)
[2020-11-22] MEDS: DIGOXIN 0.125 MG TAB PO SCH (09:03)
[2020-11-22] MEDS: ASPIRIN 81 MG ENTERIC TAB PO SCH (09:04)
[2020-11-22] MEDS: clonazePAM 0.5 MG TAB PO SCH ×3 (09:04→21:21)
[2020-11-22] MEDS: OMEPRAZOLE 20 MG CAP PO SCH (09:04)
[2020-11-22] MEDS: SINEMET 25-100 MG TAB PO SCH ×4 (09:04→17:26)
[2020-11-22] MEDS: CYANOCOBALAMIN 500 MCG TAB PO SCH (09:04)
[2020-11-22] MEDS: SERTRALINE 100 MG TAB PO SCH (09:04)
[2020-11-22] MEDS: FUROSEMIDE 20MG/2ML VIAL (J1940) IV SCH ×2 (13:07→17:30)
[2020-11-22 14:00] VITALS: BP 112/60
--- NOTE | 2020-11-22 14:17 | IPN ---
INPATIENT PROGRESS NOTE DATE: 11/22/20 SUBJECTIVE: Iris is seen and examined this morning at the bedside, reports she is fatigued and tired and complains of mild shortness of breath even at rest. States she did not have breakfast. Denies any vomiting or diarrhea. PHYSICAL EXAMINATION: Vital signs: Temperature 98.9, pulse 90, respiratory rate 18, blood pressure 103/60, saturating 91-96% on 2 liters nasal cannula. Intake yesterday was only recorded as 360. Urine output was 1325. Weight on the bed scale today is not recorded. General: Patient is seen lying in bed, a frail, elderly female appears chronically ill, tired and drowsy, but arousable and in no apparent distress. HEENT: Makes eye contact. Tongue is dry. Neck: Supple. Jugular veins are mildly elevated. Heart: Sounds are regular S1 and S2. Lungs: Diminished breath sounds with some bibasilar crackles. She is on nasal cannula. There is tachypnea and mild abdominal breathing. Abdomen: There are positive bowel sounds. Abdomen is soft, nontender and nondistended. Genitourinary: Indwelling Mendez catheter. Musculoskeletal: No cyanosis or clubbing and no leg edema. Neurologic: Patient is drowsy, but easily arousable, follows commands and cooperates with physical exam and is oriented to person and place. LABORATORY DATA: White count 11.7, hemoglobin 9.1, platelets 221. Sodium 141, potassium 4. 2, bicarbonate 27, BUN 30, creatinine 2.7. INPATIENT MEDICATIONS: Reviewed by myself. Noted her bisoprolol dose was held today due to low blood pressure. She is ordered for Lasix 20 I.V. times 2 doses to be given 6 hours apart. The remainder of the medications are unchanged as compared to yesterday. PROBLEMS/PLAN: 1. NALLELY on CKD stage 3B in this patient with likely polycystic kidney disease underlying and admitted with hypotension and bradycardia. Renal function has improved since admission, but now has plateaued the past 3 days around 2.7. The patient is short of breath at rest today and I am going to give her I.V. Lasix. Her blood pressure has also been soft and we will give her 20 mg of Lasix times 2 doses. 2. Diastolic congestive heart failure: Patient has been receiving diuretic on an as needed basis. I found her to have mild respiratory distress this morning. She is ordered for I.V. Lasix. She states she has been eating and drinking less, but I am not sure if the intake is being fully recorded by nursing staff. In any case her daily weights have been down trending and she is on her usual home oxygen (2 liters) and urine output is being recorded (Mendez catheter in place). 3. Paroxysmal atrial fibrillation: Her bisoprolol dose was held due to borderline hypotension this morning. She is on digoxin. 4. Hypotension: There are holding parameters written with her beta-yadiel. Systolic has been around 100-110. Last time she was given Lasix she received 60 mg I.V. and had subsequent diuresis of 4 liters; however, I do not think her blood pressure will tolerate that at present. We will use a lower dose.
--- NOTE | 2020-11-22 14:17 | CR ---
NEUROLOGY CONSULTATION DATE: 11/20/20 REFERRING PHYSICIAN: Mari Blas MD. REASON FOR CONSULTATION: Weakness. HISTORY OF PRESENT ILLNESS: The patient is a 75 -year-old female with a past medical history significant for Parkinson's disease versus Parkinson-plus syndrome with history of chronic hypoxic respiratory failure with 2 liters baseline O2 at home, CAD, status post myocardial infarction times 3 with 12 stents, paroxysmal afib, pacemaker, AICD 2012, history of stroke 2014, history of brain aneurysm without any intervention, prior reported myasthenia gravis thought to be a false diagnosis with negative acetylcholine receptor antimusc, antistructural antibodies. The patient was admitted due to increased lethargy, weakness. The patient had decreased intake of fluids and food, nausea, lightheadedness, dizziness. She was found to have acute kidney disease, acute renal failure due to polycystic kidneys. The patient was noted to become weaker in the arms and legs during the admission so a neurology consultation was placed. Upon evaluation the patient has normal strength in bilateral bicep, tricep, deltoid, quadricep, tibialis anterior. She has weakness in both iliopsoas which is likely her baseline weakness. In September, she was admitted with similar weakness and treated with carbidopa/levodopa for suspected Parkinson's disease. She remains to have a right upper extremity baseline resting tremor with increased tone and cogwheel rigidity. The patient is noted on this admission to have a UTI. The patient did have a CT scan of her cervical, thoracic and lumbar spine which did not reveal any etiology of bilateral arm and leg weakness. She is status post lumbar surgery for prior symptoms of leg weakness and paresthesias. At the present time the patient's weakness is likely due to deconditioning secondary to underlying medical conditions including acute renal failure, lack of food and hydration along with new findings of urinary tract infection as well. There is no acute neurological intervention needed for this patient. At the present time continued medical support is recommended. She does not have any symptoms suggesting myasthenia gravis, Guillain-Buttonwillow syndrome, myelopathy or stroke at this time. REVIEW OF SYSTEMS: A 14 point review of systems obtained and was negative except as per HPI. PAST MEDICAL HISTORY: 1. Chronic hypoxic respiratory failure with baseline O2 at home. 2. CAD status post myocardial infarction times 3 with 12 stents. 3. Paroxysmal afib status post pacemaker, AICD 2014. 4. Stroke in 2015. 5. Brain aneurysm non-ruptured. 6. Fibromyalgia. 7. Depression/anxiety. 8. Spinal stenosis. 9. Arthritis. 10. Tremors. 11. GERD. 12. Parkinson's disease versus Parkinson-plus syndrome. Clarification: No objective evidence to support past diagnosis of myasthenia gravis. All myasthenia antibodies are negative. PAST SURGICAL HISTORY: 1. Cardiac catheterization. 2. Left arm titanium plate and screws. 3. spinal fusion 4. Cardiac stenting times 12. 5. AICD pacemaker. 6. Benign tumor removal on right shoulder blade. 7. Cystocele. 8. Rectocele repair. 9. Total abdominal hysterectomy. 10. Tonsillectomy and adenoidectomy. 11. Colonoscopy. SOCIAL HISTORY: Patient denies use of any tobacco, alcohol or illicit drugs. FAMILY HISTORY: Noncontributory. ALLERGIES: 1. BEE VENOM. 2. STRAWBERRY. 3. CAFFEINE. HOME MEDICATIONS: 1. Aspirin 81 mg. 2. Bisoprolol 2.5 mg. 3. Bupropion 100 mg. 4. Carbidopa/levodopa 25/100 mg, 1 tablet by mouth four times a day. 5. Vitamin D3 1250 mcg capsule monthly. 6. Clonazepam 0.5 mg at bedtime and daily. 7. Cyanocobalamin 500 mcg daily. 8. Digoxin 125 mcg 3 days a week. 9. Gabapentin 300 mg, 2 capsules at bedtime. 10. Omeprazole 40 mg by mouth once daily. 11. Rosuvastatin 40 mg at bedtime. 12. Sacubitril/valsartan 24 mg/26 mg twice a day. 13. Sertraline 100 mg daily. 14. Torsemide 20 mg daily. PHYSICAL EXAMINATION: Blood pressure 143/63, pulse rate 92, respiratory rate 18, temperature 98.5 degrees Fahrenheit, 94% oxygenation on 2 liters nasal cannula. Patient is oriented to person, place and time. Speech and language comprehension and repetition are intact. There is no aphasia, dysarthria. Repetition is intact. There is no pronator drift. Resting tremor of the right upper extremity is noted. Increased tone and cogwheel rigidity to the right upper extremity is noted. Patient does not have any bulbar weakness on exam. Patient has normal 5/5 strength in bilateral deltoid, bicep, tricep. 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 Patient has bilateral weakness in the iliopsoas with 5/5 strength in bilateral quadricep and tibialis anterior. Sensory is intact to light touch in all 4 extremities. There is no significant postural tremor. There is no significant ataxia, dysmetria. Slight bradykinesia is noted, mild mask faces was noted. Gait deferred. ASSESSMENT AND PLAN: 75-year-old female with Parkinson's disease with sudden change in strength as reported earlier in the day none at the present time. It is unclear of the etiology of that sudden weakness, whether bradycardia, hypotension resulted in transient ischemic event versus transient spinal cord ischemia. There does not appear to be any acute neurological deficit at this time. Patient is at baseline neurological state in regards to her Parkinson's, responding well to Sinemet. If creatinine clearance is less than 50 reduce Sinemet by 50% dosage until creatinine clearance improves. Continue management of underlying acute renal failure as per nephrology. MRI is not possible due to pacemaker, acid placement. There are no significant findings to suggest Guillain-Buttonwillow syndrome, myasthenia gravis or underlying myeopathy at this time. Recommend continue supportive care, PT/OT eval, use walker at all times to ambulate. Again clarification for the chart there is no objective or serological evidence of a diagnosis of myasthenia gravis. This is likely a false diagnosis. Case discussed with Dr. Mari Blas as she agrees with the plan.
--- NOTE | 2020-11-22 14:56 | IPNPDOC ---
Date Seen The patient was seen on 11/22/20. Progress Note SUBJECTIVE: Weak, PT: lethargic, c/w PT and possibly rehab. Nephro started lasix Q6H, soft BP so BB held. Slightly wheey. She denies chest pain, n/v/d. OBJECTIVE: PHYSICAL EXAMINATION: VS: Please see below CONSTITUTIONAL: lethargic this AM, awake and O x 3 EYES: PERRLA, EOM intact HENT, MOUTH: Normocephalic, atraumatic, moist mucous membranes NECK: SUPPLE, no JVD, no lymphadenopathy, no carotid bruit CV: sinus, S1S2 normal, no murmurs/rubs/gallops RESPIRATORY: Clear to auscultation bilaterally, no rales/rhonchi/wheezes GI: BS positive in 4 quadrants, soft, nontender, nondistended, no rebound or guarding, no organomegaly : Mendez catheter MUSCULOSKELETAL:No cyanosis, clubbing, swelling, joint deformity, extremity edema INTEGUMENTARY: Dry skin, Intact, no rashes, no lesions, no erythema NEUROLOGIC: Cranial Nerves II-XII are intact, no focal deficits. Reflexes in tact. Increased weakness 4/5 in all ext. PSYCHIATRIC: Mood and affect are normal LABORATORY DATA: Please see below MICROBIOLOGY: UCx: NG IMAGING: Echocardiogram 11/17/20: EF 50% Normal sinus rhythm at 67 BPM. No intraventricular conduction disturbance. M-mode and two-dimensional echocardiography was performed with pulse, continuous wave, color flow, and tissue Doppler studies. Slightly dilated and borderline hypertrophied left ventricle with proximal inferior akinesis, but other wall motion was normal. Moderately dilated left atrium with grade 1 LV diastolic dysfunction and current estimated mean left atrial pressure slightly increased. Normal right ventricular chamber size, but wall thickness appeared to be increased with normal right ventricular free wall motion and Doppler evidence ofat least moderate pulmonary hypertension. At least mildly dilated right atrium, but normal IVC size and collapse against an elevated central venous pressure at this time. Normal aortic dimensions. Mild aortic valvular sclerosis without stenosis and very mild insufficiency. Mild degenerative changes of the mitral valve apparatus without inflow tract obstruction and only mild insufficiency. Normal appearing tricuspid valve with moderate tricuspid insufficiency. Pacing lead could be visualized traversing right heart structures, but no separate intracardiac mass. No pericardial effusion. Renal US: No hydronephrosis. Multiple innumerable cysts left kidney. There are also several cysts of the right kidney. Increased echotexture of the kidneys suggests medical renal disease. CXR: chronic changes, no definite acute infiltrate ASSESSMENT: 75 y/o F with PMH of chronic hypoxic respiratory failure (uses 2L at baseline), CAD s/p [place] (x3, x12 stents), Paroxysmal A. fib, Pacemaker / AICD ( 2012), Stroke (2015), Brain aneurysm (no intervention), Myasthenia Gravis , Fibromyalgia, Depression, Anxiety, Spinal stenosis, Arthritis, Tremors and GERD admitted for hypotension likely multifactorial to dehydration and beta-blockade from beta yadiel, NALLELY on CKD likely secondary to hypoperfusion, dehydration and medications combined. PLAN: NALLELY on CKD likely secondary to hypoperfusion, dehydration, medications and likely AD polycystic kidney disease -Cr slightly improved 2.72, -900 cc/24H, BP soft -Baseline Cr 1.6 -D/c jerrica per nephrology -Started on IV lasix low dose, monitor for worsening -F/u daily labs -Nephrology following HFpEF -Neg fluid balance -Remains on home O2 but has been off diuretics and other cardiac meds due to NALLELY, hypotension on admission -Echo above, preserved EF at 50%, similar to prior on file -BNP 1122--> 2589-->2676 today -Trop neg x 3 -BB held, started on IV Q6H lasix per nephrology. Continue to hold ARB/ACEi -Monitor I&O's closely, daily wt, low salt diet Generalized weakness, acute on chronic -acute on chronic physical deconditioning -Neuro consulted and saw 11/20/20: unlikely neurological in etiology, possibly metabolic vs. acute on chronic deconditioning -Ischemic spinal cord injury unlikely with recent hypotension. -All CT's neg -PT: Patient is very lethargic, falling asleep consistently during the session. Patient requires consistent support to safely sit EOB and leans significantly to her Rt side. (note: Recent CT head neg for concerning findings like stroke- cannot do MRI due to cardiac device. Neuro not suspicious for CVA ) -C/w PT/OT -Optimization of nutrition Chronic hypoxic respiratory failure -Saturating well on 2 L NC (home amount of O2) -CXR: chronic changes -Denies the diagnosis of COPD -Continue with inhaled therapy, nebulizer CAD s/p HI x 3, 12 stents placed -Denies chest pain, incr shortness of breath -Trop neg -AICD interrogated in ER, to f/u with cardiology -ECG baseline abnormal -Echo above -History of [place] x3, x12 stents, most recent 2009 -Holding ACEi/ARB, just started back -C/w bisoprolol holding parameter, statin, ASA Paroxysmal A. fib -Rate controlled with HR 80's -c/w BB with holding parameters , Digoxin, ASA 81 Stroke (2014) - c/w ASA, statin, BP control Brain aneurysm - Patient reported that no intervention was required Parkinson's disease -Neurology does not think she ever had myasthenia gravis confirmed based off labs -Follows o/p with neurology Anemia, multifactorial to Vitamin B12, LOYDA -c/w Vitamin B12, venofer Fibromyalgia / Depression / Anxiety -Currently stable -C/w Gabapentin, Sertraline, Bupropion, Clonazepam Spinal stenosis / Arthritis -c/w Tylenol PRN Calcium / Vitamin D deficiency -c/w Vitamin D and Calcium carbonate GERD -C/w PPI DVT px -Heparin SC Resolved issues: Hypotension likely multifactorial to dehydration and hypoperfusion from beta- blockade Bradycardia likely 2/2 to beta-blockade from beta yadiel DISPOSITION: Nephrology following closely. PT/OT. Possibly home with services vs. rehab. VS, I&O, 24H, [facility] Vital Signs/I&O Vital Signs Date Time Temp Pulse Resp B/P (MAP) Pulse Ox O2 Delivery O2 Flow Rate FiO2 11/22/20 09:03 88 11/22/20 09:00 2.0 11/22/20 09:00 103/60 11/22/20 06:00 98.9 18 91 Room Air I&O- Last 24 Hours up to 6 AM 11/22/20 06:00 Intake Total 660 ml Output Total 850 ml Balance -190 ml Laboratory Data 24H LABS Laboratory Tests 2 11/22/20 06:01: Nucleated Red Blood Cells % (auto) 0.0, Anion Gap 7L, Glomerular Filtration Rate 18.2L, Calcium Level 8.4L, Total Bilirubin 0.3, Aspartate Amino Transf (AST /SGOT) 10, Alanine Aminotransferase (ALT/SGPT) 6L, Alkaline Phosphatase 72, Total Protein 6.1L, Albumin 2.6L, Albumin/Globulin Ratio 0.7L CBC/BMP Laboratory Tests 11/22/20 06:01 Microbiology Microbiology 11/19/20 Urine Culture - Final, Complete Current Medications Current Medications Medications (Trade) Dose Ordered Sig/Jorden Route PRN Reason Start Time Stop Time Status Last Admin Dose Admin Acetaminophen/ Codeine Phosphate (Tylenol/Codeine #3 Tablet) 1 ea Q6H PRN PO PAIN 11/17/20 16:45 11/20/20 21:52 Albuterol Sulfate (Proventil, Ventolin Hfa) 2 puff Q4H PRN INH SOB/WHEEZING 11/17/20 16:45 Albuterol/ Ipratropium (Duoneb (Ipr 0.5mg/Alb 2.5mg)) 3 ml QID PRN INH SHORTNESS OF BREATH 11/17/20 16:45 Aspirin (Ecotrin) 81 mg DAILY PO 11/18/20 09:00 11/22/20 09:04 Bisoprolol Fumarate (Zebeta) 2.5 mg DAILY PO 11/20/20 09:00 11/21/20 15:34 DC 11/21/20 08:15 Bisoprolol Fumarate (Zebeta) 2.5 mg DAILY PO 11/22/20 09:00 Bupropion HCl (Wellbutrin Sr) 100 mg DAILY PO 11/18/20 09:00 11/22/20 09:03 Carbidopa/Levodopa (Sinemet 25/100) 1 tab 0900,1200,1500,1800 PO 11/17/20 18:00 11/22/20 12:04 Ceftriaxone Sodium 1 gm/ Dextrose 50 ml @ 100 mls/hr Q24H IV 11/19/20 15:00 11/19/20 14:58 DC Cephalexin Monohydrate (Keflex) 500 mg BID PO 11/19/20 09:00 11/20/20 13:59 DC 11/20/20 09:17 Clonazepam (KlonoPIN) 0.5 mg DAILY@1500 PO 11/18/20 15:00 11/19/20 12:11 DC 11/18/20 15:22 Clonazepam (KlonoPIN) 0.5 mg QHS PO 11/17/20 21:00 11/19/20 12:11 DC 11/18/20 21:11 Clonazepam (KlonoPIN) 0.5 mg TID@0900,1500,2100 PO 11/19/20 15:00 11/22/20 09:04 Cyanocobalamin (Vitamin B12) 500 mcg DAILY PO 11/18/20 09:00 11/22/20 09:04 Digoxin (Lanoxin) 0.125 mg DAILY PO 11/18/20 09:00 11/18/20 08:16 DC Digoxin (Lanoxin) 0.125 mg MoWeFr@0900 PO 11/19/20 09:00 11/22/20 09:03 Dobutamine HCl 648440 mcg/IV Miscellaneous Supplies 250 ml @ 6 mls/hr DRIP IV 11/17/20 15:30 11/17/20 15:58 DC Furosemide (LASIX injection) 20 mg Q6H IV 11/22/20 12:30 11/22/20 18:31 11/22/20 13:07 Gabapentin (Neurontin) 600 mg QHS PO 11/17/20 21:00 11/21/20 20:11 Heparin Sodium (Porcine) (Heparin) 5,000 units Q8H SC 11/17/20 22:00 11/22/20 13:07 Home Med (Med Rec Complete!) ASDIRECTED XX 11/17/20 16:15 11/17/20 16:12 DC Iron 100 mg/ Sodium Chloride 105 ml @ 105 mls/hr DAILY IV 11/18/20 09:00 11/18/20 12:59 DC Iron 100 mg/ Sodium Chloride 105 ml @ 105 mls/hr Q24H IV 11/18/20 15:00 11/21/20 18:05 DC 11/21/20 15:04 Omeprazole (PriLOSEC) 40 mg DAILY PO 11/18/20 09:00 11/22/20 09:04 Rosuvastatin Calcium (Crestor) 40 mg QHS PO 11/17/20 21:00 11/21/20 20:11 Sertraline HCl (Zoloft) 100 mg DAILY PO 11/18/20 09:00 11/22/20 09:04 Sodium Chloride 1,000 ml @ 85 mls/hr [id number] IV 11/17/20 18:00 11/18/20 11:39 DC 11/18/20 09:09 Sodium Chloride 1,000 ml @ 125 mls/hr Q8H IV 11/17/20 16:00 11/17/20 16:07 DC Allergies Coded Allergies: bee venom protein (honey bee) (Verified Allergy, Severe, ANAPHYLAXIS, 11/17/20) strawberry (Verified Allergy, Severe, ANAPHYLAXIS, 11/17/20) caffeine (Verified Adverse Reaction, Intermediate, heart palpitations, 11/17/20) Mari Blas MD Nov 22, 2020 14:56
[2020-11-22] MEDS: ACETAMINOPH W/CODEINE #3 TAB UD PO PRN (21:20)
[2020-11-22] MEDS: ROSUVASTATIN 10 MG TAB (CRESTOR) PO SCH (21:21)
[2020-11-22] MEDS: GABAPENTIN 300 MG CAP PO SCH (21:21)
[2020-11-22 22:00] VITALS: BP 150/81
[2020-11-23] MEDS: HEPARIN SOD (PORCINE) 5000UNITS/ML 1ML VIAL/SYRINGE SC SCH ×3 (05:40→20:57)
[2020-11-23 06:00] VITALS: BP 119/55
[2020-11-23 08:13] LABS: HEMATOCRIT 29.3 % (36.0-47.0); HEMOGLOBIN 8.9 g/dl (12.0-15.5); MEAN CORPUSCULAR HEMOGLOBIN 29.7 pg (27.0-33.0); MEAN CORPUSCULAR HGB CONC 30.4 g/dl (32.0-36.5); MEAN CORPUSCULAR VOLUME 97.7 fl (80.0-96.0); PLATELET COUNT, AUTOMATED 232 10^3/uL (150-450)
[2020-11-23 08:24] VITALS: BP 119/55
[2020-11-23] MEDS: ASPIRIN 81 MG ENTERIC TAB PO SCH (08:24)
[2020-11-23] MEDS: OMEPRAZOLE 20 MG CAP PO SCH (08:24)
[2020-11-23] MEDS: CYANOCOBALAMIN 500 MCG TAB PO SCH (08:24)
[2020-11-23] MEDS: BISOPROLOL FUM 2.5 MG PER 1/2TAB PO SCH (08:24)
[2020-11-23] MEDS: SINEMET 25-100 MG TAB PO SCH ×4 (08:24→18:54)
[2020-11-23] MEDS: SERTRALINE 100 MG TAB PO SCH (08:24)
[2020-11-23] MEDS: clonazePAM 0.5 MG TAB PO SCH ×3 (08:24→20:57)
[2020-11-23] MEDS: buPROPion (WELLBUTRIN SR) 100 MG SR TAB PO SCH (08:24)
[2020-11-23] MEDS: ACETAMINOPH W/CODEINE #3 TAB UD PO PRN ×2 (08:25→15:41)
[2020-11-23 08:48] LABS: ALBUMIN 2.6 GM/DL (3.2-5.2); BILIRUBIN,TOTAL 0.2 MG/DL (0.2-1.0); CALCIUM LEVEL 8.7 MG/DL (8.8-10.2); CREATININE FOR GFR 2.82 MG/DL (0.55-1.30); GLOMERULAR FILTRATION RATE 17.4 (>39); POTASSIUM SERUM 4.1 MEQ/L (3.5-5.1); TOTAL PROTEIN 6.4 GM/DL (6.4-8.2)
[2020-11-23] MEDS ORDERED: guaiFENesin SYRUP 200 MG/10 ML UDC PO PRN (12:00)
[2020-11-23] MEDS: IRON SUCROSE 100 MG in NS 100 ML OVER 1 HR IV SCH (12:48)
--- NOTE | 2020-11-23 13:32 | IPNPDOC ---
Text Note Date of Service The patient was seen on 11/23/20. NOTE SUBJECTIVE: Patient seen and examined at bedside. No acute overnight events reported. Patient has no new medical complaints this morning. Notified by nursing for some mild wheezing. OBJECTIVE: VS: Please see below General: NAD, sitting comfortably in chair HEENT: NC/AT, EOMI, nasal cannula in place Lungs: CTA B/L Heart: +S1S2, RRR Abd: soft, NT, +BS Ext: no edema ASSESSMENT: 75 y/o F with PMH of chronic hypoxic respiratory failure (uses 2L at baseline), CAD s/p [place] (x3, x12 stents), Paroxysmal A. fib, Pacemaker / AICD (2012), Stroke (2014), Brain aneurysm (no intervention), Myasthenia Gravis , Fibromyalgia, Depression, Anxiety, Spinal stenosis, Arthritis, Tremors and GERD admitted for hypotension likely multifactorial to dehydration and beta-blockade from beta yadiel, NALLELY on CKD likely secondary to hypoperfusion, dehydration and medications combined. PLAN: #NALLELY on CKD likely secondary to hypoperfusion, dehydration, medications and likely AD polycystic kidney disease -Cr slightly improved 2.72, -900 cc/24H, BP soft -Baseline Cr 1.6 -D/c becerril per nephrology -Started on IV lasix low dose -F/u daily labs -Nephrology following #HFpEF -Neg fluid balance -Remains on home O2 but has been off diuretics and other cardiac meds due to NALLELY, hypotension on admission -Echo above, preserved EF at 50%, similar to prior on file -BNP 1122--> 2589-->2676 today -Trop neg x 3 -BB held, started on IV Q6H lasix per nephrology. Continue to hold ARB/ACEi -Monitor I&O's closely, daily wt, low salt diet #Generalized weakness, acute on chronic -acute on chronic physical deconditioning -Neuro consulted and saw 11/20/20: unlikely neurological in etiology, possibly metabolic vs. acute on chronic deconditioning -Ischemic spinal cord injury unlikely with recent hypotension. -All CT's neg -PT: Patient is very lethargic, falling asleep consistently during the session. Patient requires consistent support to safely sit EOB and leans significantly to her Rt side. (note: Recent CT head neg for concerning findings like stroke- cannot do MRI due to cardiac device. Neuro not suspicious for CVA ) -C/w PT/OT -Optimization of nutrition #Chronic hypoxic respiratory failure -Saturating well on 2 L NC (home amount of O2) -CXR: chronic changes -Denies the diagnosis of COPD -Continue with inhaled therapy, nebulizer #CAD s/p [place] x 3, 12 stents placed -Denies chest pain, incr shortness of breath -Trop neg -AICD interrogated in ER, to f/u with cardiology -ECG baseline abnormal -Echo above -History of [place] x3, x12 stents, most recent 2009 -Holding ACEi/ARB, just started back -C/w bisoprolol holding parameter, statin, ASA #Paroxysmal A. fib -Rate controlled with HR 80's -c/w BB with holding parameters , Digoxin, ASA 81 #Stroke (2014) - c/w ASA, statin, BP control #Brain aneurysm - Patient reported that no intervention was required #Parkinson's disease -Neurology does not think she ever had myasthenia gravis confirmed based off labs -Follows o/p with neurology #Anemia, multifactorial to Vitamin B12, LOYDA -c/w Vitamin B12, venofer #Fibromyalgia / Depression / Anxiety -Currently stable -C/w Gabapentin, Sertraline, Bupropion, Clonazepam #Spinal stenosis / Arthritis -c/w Tylenol PRN #Calcium / Vitamin D deficiency -c/w Vitamin D and Calcium carbonate #GERD -C/w PPI #DVT px -Heparin SC Resolved issues: Hypotension likely multifactorial to dehydration and hypoperfusion from beta- blockade Bradycardia likely 2/2 to beta-blockade from beta yadiel DISPOSITION: Nephrology following closely. PT/OT. Possibly home with services vs. rehab. VS,Justicebone, I+O VS, Fishbone, I+O Laboratory Tests 11/23/20 07:43 Vital Signs Date Time Temp Pulse Resp B/P (MAP) Pulse Ox O2 Delivery O2 Flow Rate FiO2 11/23/20 08:55 16 11/23/20 08:24 88 119/55 11/23/20 06:00 99.6 96 Nasal Cannula 2.0 I&O- Last 24 Hours up to 6 AM 11/23/20 06:00 Intake Total 610 ml Output Total 300 ml Balance 310 ml LUCIE HARRISON MD Nov 23, 2020 13:32
[2020-11-23 14:00] VITALS: BP 133/54
--- NOTE | 2020-11-23 15:04 | REP ---
INDICATION: eval for chf , pulm edema. COMPARISON: Radiograph 11/21/2020. TECHNIQUE: CT chest performed without the use of intravenous contrast. Sagittal and coronal reconstruction images are performed. FINDINGS: Lungs: There are two 3 mm nodular opacities in the right upper lobe (images 38 and 48) which are of doubtful significance. There is calcified granuloma in the right middle lobe. There are mild scattered fibro atelectatic changes bilaterally, primarily in the lower lung ch. Mild patchy parenchymal opacities in the right lower lobe, lingula and predominantly in the left lower lobe may represent areas of atelectasis or infiltrate. Mediastinum: No gross adenopathy. Elenita: No gross adenopathy. Axilla: No gross adenopathy. Pleura: There is a small left pleural effusion. Heart: Not enlarged. Thoracic aorta: No aneurysm. Upper abdominal structures: A 1.1 cm hyperdense nodule in the upper pole the right kidney may represent a proteinaceous or hemorrhagic cyst. In the visualized left kidney there are large renal cysts identified, the largest is posteriorly located and is only partially imaged, maximum diameter of the visualized portion is 5.5 cm. Visualized osseous structures: Moderate compression deformity of L1 vertebral body is probably old. IMPRESSION: Mild patchy parenchymal opacities the inferior lung zones as discussed in detail above representing mild atelectasis or infiltrate. Small left pleural effusion. <Electronically signed by Danial Garcia > 11/23/20 1500
[2020-11-23 16:15] VITALS: BP 106/57
--- NOTE | 2020-11-23 17:11 | IPNPDOC ---
Subjective Date Seen The patient was seen on 11/23/20. Subjective Chief Complaint/HPI Pt is seen at bedside today without any reports of new concerns. She on the rehab floor and uses the bedside commode with help of nursing staff after having becerril catheter removed. Nursing staff reports no overnight events. General: Denies: ROS Unobtainable, Chills, Night Sweats, Fatigue, Malaise, Normal Appetite, Other Symptoms Constitutional: Reports: Weakness, Fatigue, Lethargy Pulmonary: Reports: Dyspnea Objective Physical Examination General Exam: Positive: Alert, Cooperative, Mild Distress (pt feels weak and lethargic) Eye Exam: Positive: Conjunctiva & lids normal ENT Exam: Positive: Atraumatic, Mucous membr. moist/pink Neck Exam: Positive: Supple Chest Exam: Positive: Wheezing (expiratory), Diminished; Negative: Rales Heart Exam: Positive: Rate Normal, Regular Rhythm; Negative: Gallops, Murmurs, Rubs Abdomen Exam: Positive: Normal bowel sounds, Soft, Other (bladder is full, no pain on palpation); Negative: Tenderness Extremity Exam: Negative: Edema Assessment /Plan Assessment # NALLELY on CKD stage 3B in this patient with polycystic kidney disease, admitted with hypotension and bradycardia. Renal function has improved since admission, but has generally plateaued with a slight bump in creatinine to 2.82 today. The pt has been switched from IV Lasix to oral torsemide every other day. # Diastolic congestive heart failure: Patient has been receiving diuretic PRN. Appears clinically compensated. Continues to have expiratory wheezes. CT chest without contrast has been ordered to further evaluate. She is on her usual home oxygen (2 liters). # Paroxysmal atrial fibrillation: Pt's bisoprolol has been continued by her primary medical team. She is on digoxin. # Hypotension: Resolved. However, holding parameters on Bisoprolol remain for SBP <110, HR <60. #Anemia in CKD; s/p venofer. Will start Aranesp. Goal Hgb 10-11. Plan/VTE VTE Prophylaxis Ordered?: Yes (patient is on heparin and aspirin.) GME ATTESTATION My faculty preceptor for this patient encounter was physically present during the encounter and was fully available. All aspects of the patient interview, examination, medical decision making process, and medical care plan development were reviewed and approved by the faculty preceptor. The faculty preceptor is aware and concurs with the plan as stated in the body of this note and will attest to such by his/her cosignature. ATTENDING NOTE NALLELY on CKD stage 3. Underlying polycystic kidneys. Volume status compensated and receiving lasix PRN. Will switch to Torsemide 20mg every other day. VS, I&O, 24H, Fishbone Vital Signs/I&O Vital Signs Date Time Temp Pulse Resp B/P (MAP) Pulse Ox O2 Delivery O2 Flow Rate FiO2 11/23/20 15:41 16 11/23/20 14:00 98.3 75 133/54 (80) 94 Nasal Cannula 2.0 I&O- Last 24 Hours up to 6 AM 11/23/20 06:00 Intake Total 610 ml Output Total 300 ml Balance 310 ml Laboratory Data 24H LABS Laboratory Tests 2 11/23/20 07:43: Nucleated Red Blood Cells % (auto) 0.0, Anion Gap 7L, Glomerular Filtration Rate 17.4L, Calcium Level 8.7L, Total Bilirubin 0.2, Aspartate Amino Transf (AST/SGOT) 12, Alanine Aminotransferase (ALT/SGPT) 7L, Alkaline Phosphatase 77, Total Protein 6.4, Albumin 2.6L, Albumin/Globulin Ratio 0.7L CBC/BMP Laboratory Tests 11/23/20 07:43 Microbiology Microbiology 11/19/20 Urine Culture - Final, Complete Agustin Fry DO Nov 23, 2020 17:11 EVERARDO SANTAMARIA DO Nov 28, 2020 15:27
[2020-11-23] MEDS: GABAPENTIN 100 MG CAP PO SCH (20:57)
[2020-11-23] MEDS: ROSUVASTATIN 10 MG TAB (CRESTOR) PO SCH (20:57)
[2020-11-23 22:00] VITALS: BP 102/57
[2020-11-24] MEDS: HEPARIN SOD (PORCINE) 5000UNITS/ML 1ML VIAL/SYRINGE SC SCH ×3 (05:51→20:59)
[2020-11-24 06:00] VITALS: BP 99/54
[2020-11-24 07:03] LABS: HEMATOCRIT 27.3 % (36.0-47.0); HEMOGLOBIN 8.4 g/dl (12.0-15.5); MEAN CORPUSCULAR HEMOGLOBIN 29.8 pg (27.0-33.0); MEAN CORPUSCULAR HGB CONC 30.8 g/dl (32.0-36.5); MEAN CORPUSCULAR VOLUME 96.8 fl (80.0-96.0); PLATELET COUNT, AUTOMATED 229 10^3/uL (150-450); RED BLOOD COUNT 2.82 10^6/uL (4.00-5.40)
[2020-11-24 07:26] LABS: ALBUMIN 2.4 GM/DL (3.2-5.2); BILIRUBIN,TOTAL 0.2 MG/DL (0.2-1.0); CALCIUM LEVEL 8.9 MG/DL (8.8-10.2); CREATININE FOR GFR 2.95 MG/DL (0.55-1.30); GLOMERULAR FILTRATION RATE 16.6 (>39); POTASSIUM SERUM 4.2 MEQ/L (3.5-5.1); TOTAL PROTEIN 6.7 GM/DL (6.4-8.2)
[2020-11-24] MEDS: BISOPROLOL FUM 2.5 MG PER 1/2TAB PO SCH (07:55)
[2020-11-24] MEDS: ASPIRIN 81 MG ENTERIC TAB PO SCH (08:25)
[2020-11-24] MEDS: OMEPRAZOLE 20 MG CAP PO SCH (08:27)
[2020-11-24] MEDS: buPROPion (WELLBUTRIN SR) 100 MG SR TAB PO SCH (08:27)
[2020-11-24] MEDS: clonazePAM 0.5 MG TAB PO SCH ×3 (08:27→20:59)
[2020-11-24] MEDS: ACETAMINOPH W/CODEINE #3 TAB UD PO PRN (08:27)
[2020-11-24] MEDS: SINEMET 25-100 MG TAB PO SCH ×4 (08:28→18:20)
[2020-11-24] MEDS: SERTRALINE 100 MG TAB PO SCH (08:28)
[2020-11-24] MEDS: CYANOCOBALAMIN 500 MCG TAB PO SCH (08:28)
[2020-11-24 08:30] VITALS: BP 138/76
[2020-11-24] MEDS: DIGOXIN 0.125 MG TAB PO SCH (08:32)
[2020-11-24] MEDS ORDERED: IRON SUCROSE 100MG 5ML VIAL (J1756 PER 1MG) IV SCH (09:00)
[2020-11-24] MEDS ORDERED: IRON SUCROSE 100 MG in NS 100 ML OVER 1 HR IV SCH (09:00)
[2020-11-24] MEDS ORDERED: TORSEMIDE 20 MG TAB PO SCH (09:00)
--- NOTE | 2020-11-24 11:42 | IPNPDOC ---
Text Note Date of Service The patient was seen on 11/24/20. NOTE SUBJECTIVE: Patient seen and examined at bedside. No acute overnight events reported. Patient has no new medical complaints this morning. OBJECTIVE: VS: Please see below General: NAD, sitting comfortably in chair HEENT: NC/AT, EOMI, nasal cannula in place Lungs: CTA B/L Heart: +S1S2, RRR Abd: soft, NT, +BS Ext: no edema ASSESSMENT: 75 y/o F with PMH of chronic hypoxic respiratory failure (uses 2L at baseline), CAD s/p [place] (x3, x12 stents), Paroxysmal A. fib, Pacemaker / AICD (2012), Stroke (2014), Brain aneurysm (no intervention), Myasthenia Gravis , Fibromyalgia, Depression, Anxiety, Spinal stenosis, Arthritis, Tremors and GERD admitted for hypotension likely multifactorial to dehydration and beta-blockade from beta yadiel, NALLELY on CKD likely secondary to hypoperfusion, dehydration and medications combined. PLAN: #NALLELY on CKD likely secondary to hypoperfusion, dehydration, medications and likely AD polycystic kidney disease -Baseline Cr 1.6 -Started on demadex today -F/u daily labs -Nephrology following #HFpEF -Neg fluid balance -Remains on home O2 but has been off diuretics and other cardiac meds due to NALLELY, hypotension on admission -Echo above, preserved EF at 50%, similar to prior on file -Trop neg x 3 - started on demadex Continue to hold ARB/ACEi -Monitor I&O's closely, daily wt, low salt diet #Generalized weakness, acute on chronic -acute on chronic physical deconditioning -Neuro consulted and saw 11/20/20: unlikely neurological in etiology, possibly metabolic vs. acute on chronic deconditioning -Ischemic spinal cord injury unlikely with recent hypotension. -All CT's neg -PT: Patient is very lethargic, falling asleep consistently during the session. Patient requires consistent support to safely sit EOB and leans significantly to her Rt side. (note: Recent CT head neg for concerning findings like stroke- cannot do MRI due to cardiac device. Neuro not suspicious for CVA ) -C/w PT/OT -Optimization of nutrition #Chronic hypoxic respiratory failure -Saturating well on 2 L NC (home amount of O2) -CXR: chronic changes -Denies the diagnosis of COPD -Continue with inhaled therapy, nebulizer #CAD s/p [place] x 3, 12 stents placed -Denies chest pain, incr shortness of breath -Trop neg -AICD interrogated in ER, to f/u with cardiology -ECG baseline abnormal -Echo above -History of [place] x3, x12 stents, most recent 2009 -Holding ACEi/ARB -C/w bisoprolol holding parameter, statin, ASA #Paroxysmal A. fib -Rate controlled with HR 80's -c/w BB with holding parameters , Digoxin, ASA 81 #Stroke (2014) - c/w ASA, statin, BP control #Brain aneurysm - Patient reported that no intervention was required #Parkinson's disease -Neurology does not think she ever had myasthenia gravis confirmed based off labs -Follows o/p with neurology #Anemia, multifactorial to Vitamin B12, LOYDA -c/w Vitamin B12, venofer #Fibromyalgia / Depression / Anxiety -Currently stable -C/w Gabapentin, Sertraline, Bupropion, Clonazepam #Spinal stenosis / Arthritis -c/w Tylenol PRN #Calcium / Vitamin D deficiency -c/w Vitamin D and Calcium carbonate #GERD -C/w PPI #DVT px -Heparin SC Resolved issues: Hypotension likely multifactorial to dehydration and hypoperfusion from beta- blockade Bradycardia likely 2/2 to beta-blockade from beta yadiel DISPOSITION: Nephrology following closely. PT/OT. Possibly home with services vs. rehab. VSReji, I+O VSReji, I+O Laboratory Tests 11/24/20 06:44 Vital Signs Date Time Temp Pulse Resp B/P (MAP) Pulse Ox O2 Delivery O2 Flow Rate FiO2 11/24/20 09:30 2.0 11/24/20 09:10 22 11/24/20 08:32 62 11/24/20 08:30 138/76 (96) 11/24/20 06:00 97.7 94 Nasal Cannula I&O- Last 24 Hours up to 6 AM 11/24/20 06:00 Intake Total 1480 ml Balance 1480 ml LUCIE HARRISON MD Nov 24, 2020 11:42
[2020-11-24 14:00] VITALS: BP 131/75
[2020-11-24] MEDS: IRON SUCROSE 100 MG in NS 100 ML OVER 1 HR IV SCH (14:07)
--- NOTE | 2020-11-24 14:43 | IPN ---
INPATIENT PROGRESS NOTE DATE: 11/24/20 SUBJECTIVE: Patient seen and examined this morning at the bedside. She reports she has been up and out of bed twice to ambulate to the bathroom. Denies any dyspnea with ambulation, denies any lightheadedness or dizziness and reports no issues emptying her bladder. PHYSICAL EXAMINATION: Temperature 97.7, pulse 79, respiratory rate 17, blood pressure 99/50, saturating 94% on 2 liters nasal cannula. Intake yesterday was 1180. Urine output was recorded as 4 voids. Weight on the bed scale today is not recorded. General: Patient is seen lying in bed, head of the bed elevated, elderly, frail female in no apparent distress. HEENT: Makes eye contact. Tongue is moist. Neck: Supple. Jugular veins are not elevated. Heart: Sounds are regular S1 and S2. There is no leg edema. Lungs: Expiratory wheeze which is improved as compared to yesterday. She is on nasal cannula. There is no tachypneic and no accessory muscle use. No crackle or rale. Abdomen: Soft and nontender. Genitourinary: The bladder is not palpable. Musculoskeletal: No cyanosis, clubbing or leg edema. Neurologic: She is oriented times 3, interactive, conversational and at baseline mentation. LABORATORY DATA: Sodium 139, potassium 4.2, bicarbonate 29, BUN 38, creatinine 2.9. Albumin 2.4. Hemoglobin 8.4. IMAGING: Non-contrast CT chest done yesterday shows small left pleural effusion and scattered fibroatelectatic changes bilaterally in the lower lung ch. INPATIENT MEDICATIONS: Her torsemide is switched to 20 mg every other day. She is receiving Venofer I.V. 100 mg daily times 3 doses. I discontinued her bisoprolol. Her gabapentin was decreased to 200 mg at bedtime yesterday. Her remaining medications are unchanged from prior. PROBLEMS/PLAN: 1. NALLELY on CKD stage 3: Renal function has stalled at around 2.8 for the past 5 days. Her volume status clinically appears euvolemic towards dry. I decreased her torsemide dose down to 20 mg every other day. Her Mendez catheter was removed. There are no signs of retention. Post-void residual bladder scan is ordered. Her gabapentin dose was decreased. Her remainder of medications are appropriate for GFR. 2. Heart failure with preserved ejection fraction: Patient appears clinically very well compensated. Her diuretic dose is decreased. She is incontinent of urine. I&Os are not fully recorded, but her daily weights have been down trending. 3. Chronic hypoxic respiratory failure: Patient continues on her usual home oxygen of [address] scan did not show any signs of fluid overload (small pleural effusion on the left only) and she has chronic fibroatelectatic changes and she continues with the usual bronchodilator therapy. 4. Paroxysmal atrial fibrillation: Rate has been well controlled and she has only received 1 dose of bisoprolol in the past 3 days. She does continue on digoxin every other day and I am going to go ahead and discontinue the bisoprolol. 5. Anemia related to iron deficiency and chronic kidney disease: She is getting Venofer and I am going to start her as well on Aranesp. 6. Physical deconditioning: Patient continues with physical therapy and may require rehab and has Parkinson's underlying and has protein calorie malnutrition as well.
--- NOTE | 2020-11-24 17:04 | IPN ---
INPATIENT PROGRESS NOTE DATE: 11/21/20 SUBJECTIVE: Ashwini is seen and examined this morning at the bedside. She reports her breathing is much more comfortable today. She otherwise complains of generalized fatigue, weakness and denies shortness of breath at rest, continues on her usual baseline 2 liters of oxygen via nasal cannula. PHYSICAL EXAMINATION: Temperature 98, pulse 80, respiratory rate 18, blood pressure 139/68, saturating 94% on 2 liters nasal cannula. Intake yesterday was not fully recorded. Urine output was 4 liters. Weight on the bed scale today is 69.5 which is significantly lower than previous days. General: Patient is seen sitting up in bed, head of the bed elevated 45 degrees, elderly and frail appearing, chronically ill female. HEENT: Makes eye contact, extraocular muscles are intact. Wearing nasal cannula. Mucous membranes are moist. Neck: Supple. Jugular veins are minimally elevated. Heart: Sounds are regular. Lungs: Improved aeration with diminished breath sounds at the base. No tachypneic. No rhonchus or wheeze. She is saturating well on her usual 2 liter nasal cannula. Abdomen: Soft and nontender. There are bowel sounds. Genitourinary: Mendez catheter. Extremities: Negative for cyanosis, clubbing or pitting edema. Neurologic: She is oriented times 3, interactive, conversational and cooperative with physical exam. Psychiatric: She appears depressed. LABORATORY DATA: White count 11.7, hemoglobin 10.3, platelets 217. Sodium 138, potassium 4.7, bicarbonate 23, BUN 30, creatinine 2.8. BNP 2600. IMAGING: Chest x-ray done today shows no acute pulmonary disease. There is diffuse chronic interstitial marking without any new infiltrate. INPATIENT MEDICATIONS: Reviewed by myself. She was started yesterday on bisoprolol 2.5 mg by mouth daily by the primary service. The remainder of medications are unchanged over the past 24 hours. PROBLEMS/PLAN: 1. NALLELY on CKD stage 3: Baseline creatinine is around 1.5. She has bilateral polycystic kidneys; however, her actual kidney size is only mildly enlarged. 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 Her renal function did worsen over the past 24 hours with I.V. Lasix; however, she diuresed very well with 4 liter urine output and her clinical dyspnea that she had yesterday seems to have resolved today. She will only get diuretic on an as needed basis and I am not ordering any standing diuretic at this time. 2. Chronic diastolic congestive heart failure: Echocardiogram noted left ventricular ejection fraction 50% with diastolic dysfunction. Her home diuretics are on-hold because of acute kidney injury along with her Entresto being on-hold as well. We will assess volume status daily and give diuretic as needed. Her diuresed 4 liters with 1 dose of I.V. Lasix yesterday. She is saturating on her usual 2 liter of home oxygen. 3. Paroxysmal atrial fibrillation: I note primary team has restarted low dose bisoprolol. Heart rate has been acceptably controlled and she is also on digoxin and there has not been any recurrent bradycardia. 4. Chronic hypoxic respiratory failure: Patient continues on her usual home oxygen. Chest x-ray reviewed and stable. Status post I.V. Lasix yesterday. Her daily weights are down trending. Oxygen requirements are unchanged and at her usual home requirement. She will get diuretic on an as needed basis. 5. Anemia related to iron deficiency along with hemodilutional state: Pharmacy called to report that she actually only got one 1 dose of Venofer rather than the 4 doses that are documented in the Medication Reconciliation; however, her hemoglobin has come up to 10.3 and that improvement is likely secondary to correction of the hemodilutional state with diuresis.
[2020-11-24] MEDS: GABAPENTIN 100 MG CAP PO SCH (20:59)
[2020-11-24] MEDS: ROSUVASTATIN 10 MG TAB (CRESTOR) PO SCH (20:59)
[2020-11-24 22:00] VITALS: BP 103/56
[2020-11-25] MEDS: HEPARIN SOD (PORCINE) 5000UNITS/ML 1ML VIAL/SYRINGE SC SCH ×3 (05:12→20:58)
[2020-11-25 05:18] LABS: AMORPHOUS SEDIMENT SMALL (NEGATIVE); APPEARANCE, URINE CLOUDY (CLEAR); BACTERIA, URINE AUTO NEGATIVE (NEGATIVE); BILIRUBIN, URINE AUTO NEGATIVE (NEGATIVE); BLOOD, URINE BLOOD 2+ (NEGATIVE); COLOR, URINE YELLOW (YELLOW); GLUCOSE, URINE (UA) AUTO NEGATIVE (NEGATIVE); KETONE, URINE AUTO NEGATIVE (NEGATIVE); LEUKOCYTE ESTERASE, URINE AUTO 1+ (NEGATIVE); MUCUS, URINE SMALL (NEGATIVE); NITRITE, URINE AUTO NEGATIVE (NEGATIVE); PROTEIN, URINE AUTO 1+ mg/dL (NEGATIVE); RBC, URINE AUTO 1 /HPF (0-3); SPECIFIC GRAVITY URINE AUTO 1.011 (1.002-1.035); SQUAMOUS EPITHELIAL CELL UR AU 1 /HPF (0-6); UROBILINOGEN, URINE AUTO 0.2 mg/dL (0.0-2.0); WBC, URINE AUTO 40 /HPF (0-3)
[2020-11-25 06:00] VITALS: BP 106/50
[2020-11-25 07:29] LABS: HEMATOCRIT 27.3 % (36.0-47.0); HEMOGLOBIN 8.5 g/dl (12.0-15.5); MEAN CORPUSCULAR HEMOGLOBIN 29.9 pg (27.0-33.0); MEAN CORPUSCULAR HGB CONC 31.1 g/dl (32.0-36.5); MEAN CORPUSCULAR VOLUME 96.1 fl (80.0-96.0); PLATELET COUNT, AUTOMATED 254 10^3/uL (150-450); RED BLOOD COUNT 2.84 10^6/uL (4.00-5.40); WHITE BLOOD COUNT 10.9 10^3/uL (4.0-10.0)
[2020-11-25] MEDS: ASPIRIN 81 MG ENTERIC TAB PO SCH (08:29)
[2020-11-25] MEDS: OMEPRAZOLE 20 MG CAP PO SCH (08:30)
[2020-11-25] MEDS: buPROPion (WELLBUTRIN SR) 100 MG SR TAB PO SCH (08:30)
[2020-11-25] MEDS: clonazePAM 0.5 MG TAB PO SCH ×3 (08:30→20:58)
[2020-11-25] MEDS: SERTRALINE 100 MG TAB PO SCH (08:31)
[2020-11-25] MEDS: SINEMET 25-100 MG TAB PO SCH ×4 (08:31→17:10)
[2020-11-25] MEDS: CYANOCOBALAMIN 500 MCG TAB PO SCH (08:31)
[2020-11-25] MEDS: ACETAMINOPH W/CODEINE #3 TAB UD PO PRN ×2 (08:31→20:58)
[2020-11-25 08:55] LABS: ALBUMIN 2.5 GM/DL (3.2-5.2); BILIRUBIN,TOTAL 0.2 MG/DL (0.2-1.0); CREATININE FOR GFR 2.76 MG/DL (0.55-1.30); GLOMERULAR FILTRATION RATE 17.9 (>39); POTASSIUM SERUM 4.3 MEQ/L (3.5-5.1); TOTAL PROTEIN 6.3 GM/DL (6.4-8.2)
[2020-11-25] MEDS ORDERED: DARBEPOETIN 100 MCG/0.5 ML *NON-DIALYSIS* SYRINGE (J0881) SC SCH (09:00)
--- NOTE | 2020-11-25 12:55 | IPNPDOC ---
Subjective Date Seen The patient was seen on 11/25/20. Subjective Chief Complaint/HPI Pt and nursing staff do not report any overnight events. Pt admits that she has not been using the incentive spirometer and acapella. General: Reports: Fatigue; Denies: ROS Unobtainable, Chills, Night Sweats, Malaise, Normal Appetite, Other Symptoms Constitutional: Reports: Weakness; Denies: Chills, Fever, Malaise, Night Sweats, Fatigue, Weight Loss, Lethargy, Other Eyes: Denies: Pain, Vision change, Conjunctivae inflammation, Eyelid inflammation, Redness, Other Objective Physical Examination General Exam: Positive: Alert, Cooperative, Mild Distress (pt feels weak and lethargic) Eye Exam: Positive: Conjunctiva & lids normal ENT Exam: Positive: Atraumatic, Mucous membr. moist/pink Neck Exam: Positive: Supple Chest Exam: Positive: Wheezing (expiratory, continues to improve), Diminished; Negative: Rales Heart Exam: Positive: Rate Normal, Regular Rhythm; Negative: Gallops, Murmurs, Rubs Abdomen Exam: Positive: Normal bowel sounds, Soft, Other (bladder is full, no pain on palpation); Negative: Tenderness Extremity Exam: Negative: Edema Assessment /Plan Assessment # NALLELY on CKD stage 3: Baseline creatinine is around 1.5. She has bilateral polycystic kidneys; however, her actual kidney size is only mildly enlarged. 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 Her creatinine is 2.76 today. At home diuretics have been held. Continue diuretics PRN only. # Chronic diastolic congestive heart failure: Echocardiogram noted left ventricular ejection fraction 50% with diastolic dysfunction. Home diuretics and Entresto are on hold. Will continue to assess volume status daily. Her work of breathing is not labored on exam today, so will continue with prn diuretics. # Paroxysmal atrial fibrillation: Continue Bisoprolol per primary team. Continue digoxin. HR is currently controlled. # Chronic hypoxic respiratory failure: Continue home level of oxygen. Her daily weights are down trending. Requested pt to use incentive spirometry and acapella. She will get diuretic on an as needed basis. # Anemia related to iron deficiency along with hemodilutional state: Pt's Hgb is down trending with today's being at 8.5. Pt is receiving iron and Aranesp. Plan/VTE VTE Prophylaxis Ordered?: Yes (patient is on heparin and aspirin.) GME ATTESTATION My faculty preceptor for this patient encounter was physically present during the encounter and was fully available. All aspects of the patient interview, examination, medical decision making process, and medical care plan development were reviewed and approved by the faculty preceptor. The faculty preceptor is aware and concurs with the plan as stated in the body of this note and will attest to such by his/her cosignature. VS, I&O, 24H, Fishbone Vital Signs/I&O Vital Signs Date Time Temp Pulse Resp B/P (MAP) Pulse Ox O2 Delivery O2 Flow Rate FiO2 11/25/20 09:01 18 Room Air 11/25/20 09:00 2.0 11/25/20 06:00 99.2 89 106/50 (68) 93 I&O- Last 24 Hours up to 6 AM 11/25/20 06:00 Intake Total 470 ml Balance 470 ml Laboratory Data 24H LABS Laboratory Tests 2 11/25/20 05:04: Urine Color YELLOW, Urine Appearance CLOUDYH, Urine pH 5.0, Urine Specific [place] 1.011, Urine Protein 1+H, Urine Glucose (Auto)(UA) NEGATIVE, Urine Ketones (Auto) NEGATIVE, Urine Blood 2+H, Urine Nitrite NEGATIVE, Urine Bilirubin NEGATIVE, Urine Urobilinogen 0.2, Urine Leukocyte Esterase (Auto) 1+H, Urine WBC (Auto) 40H, Urine RBC (Auto) 1, Urine Hyaline Casts (Auto) 0, Urine Bacteria (Auto) NEGATIVE, Urine Squamous Epithelial Cells 1, Urine Amorphous Sediment (Auto) SMALLH, Urine Mucus (Auto) SMALL, Urine Sperm (Auto) 11/25/20 07:16: Nucleated Red Blood Cells % (auto) 0.0, Anion Gap 10, Glomerular Filtration Rate 17.9L, Calcium Level 9.0, Total Bilirubin 0.2, Aspartate Amino Transf (AST/SGOT) 25, Alanine Aminotransferase (ALT/SGPT) 8L, Alkaline Phosphatase 69, Total Protein 6.3L, Albumin 2.5L, Albumin/Globulin Ratio 0.7L CBC/BMP Laboratory Tests 11/25/20 07:16 Microbiology Microbiology 11/19/20 Urine Culture - Final, Complete Agustin Fry DO Nov 25, 2020 12:55
[2020-11-25] MEDS: IRON SUCROSE 100 MG in NS 100 ML OVER 1 HR IV SCH (13:43)
[2020-11-25 14:22] VITALS: BP 100/69
--- NOTE | 2020-11-25 17:33 | IPNPDOC ---
Text Note Date of Service The patient was seen on 11/25/20. NOTE SUBJECTIVE: Patient seen and examined at bedside. No acute overnight events reported. Patient has no new medical complaints this morning. OBJECTIVE: VS: Please see below General: NAD, sitting comfortably in chair HEENT: NC/AT, EOMI, nasal cannula in place Lungs: CTA B/L Heart: +S1S2, RRR Abd: soft, NT, +BS Ext: no edema A/P: 75 y/o F with PMH of chronic hypoxic respiratory failure (uses 2L at baseline), CAD s/p [place] (x3, x12 stents), Paroxysmal A. fib, Pacemaker / AICD (2012), Stroke (2014), Brain aneurysm (no intervention), Myasthenia Gravis , Fibromyalgia, Depression, Anxiety, Spinal stenosis, Arthritis, Tremors and GERD admitted for hypotension likely multifactorial to dehydration and beta-blockade from beta yadiel, NALLELY on CKD likely secondary to hypoperfusion, dehydration and medications combined. #NALLELY on CKD likely secondary to hypoperfusion, dehydration, medications and likely AD polycystic kidney disease -Baseline Cr 1.6 -torsemide q2d -F/u daily labs -Nephrology following #HFpEF -Neg fluid balance -Echo above, preserved EF at 50%, similar to prior on file -Trop neg x 3 - started on demadex Continue to hold ARB/ACEi -Monitor I&O's closely, daily wt, low salt diet #Generalized weakness, acute on chronic -acute on chronic physical deconditioning -Neuro consulted and saw 11/20/20: unlikely neurological in etiology, possibly metabolic vs. acute on chronic deconditioning -All CT's neg -PT: Patient is very lethargic, falling asleep consistently during the session. Patient requires consistent support to safely sit EOB and leans significantly to her Rt side. (note: Recent CT head neg for concerning findings like stroke- cannot do MRI due to cardiac device. Neuro not suspicious for CVA ) -C/w PT/OT -Optimization of nutrition #Chronic hypoxic respiratory failure -Saturating well on 2 L NC (home amount of O2) -CXR: chronic changes -Denies the diagnosis of COPD -Continue with inhaled therapy, nebulizer #CAD s/p CA x 3, 12 stents placed -Denies chest pain, incr shortness of breath -Trop neg -AICD interrogated in ER, to f/u with cardiology -ECG baseline abnormal -Echo above -History of CA x3, x12 stents, most recent 2009 -Holding ACEi/ARB -C/w bisoprolol holding parameter, statin, ASA #Paroxysmal A. fib -Rate controlled with HR 80's -c/w BB with holding parameters , Digoxin, ASA 81 #Stroke (2014) - c/w ASA, statin, BP control #Brain aneurysm - Patient reported that no intervention was required #Parkinson's disease -Neurology does not think she ever had myasthenia gravis confirmed based off labs -Follows o/p with neurology #Anemia, multifactorial to Vitamin B12, LOYDA -c/w Vitamin B12, venofer #Fibromyalgia / Depression / Anxiety -Currently stable -C/w Gabapentin, Sertraline, Bupropion, Clonazepam #Spinal stenosis / Arthritis -c/w Tylenol PRN #Calcium / Vitamin D deficiency -c/w Vitamin D and Calcium carbonate #GERD -C/w PPI #DVT px -Heparin SC Resolved issues: Hypotension likely multifactorial to dehydration and hypoperfusion from beta- blockade Bradycardia likely 2/2 to beta-blockade from beta yadiel DISPOSITION: Nephrology following closely. PT/OT. Possibly home with services vs. rehab. VS,Fishbone, I+O VS, Fishbone, I+O Laboratory Tests 11/25/20 07:16 Vital Signs Date Time Temp Pulse Resp B/P (MAP) Pulse Ox O2 Delivery O2 Flow Rate FiO2 11/25/20 14:22 98.4 82 18 100/69 (79) 94 Nasal Cannula 2.0 I&O- Last 24 Hours up to 6 AM 11/25/20 06:00 Intake Total 470 ml Balance 470 ml LUCIE HARRISON MD Nov 25, 2020 17:33
[2020-11-25] MEDS: ROSUVASTATIN 10 MG TAB (CRESTOR) PO SCH (20:58)
[2020-11-25] MEDS: GABAPENTIN 100 MG CAP PO SCH (20:58)
[2020-11-25 22:00] VITALS: BP 105/64
[2020-11-26] VITALS (7 sets, daily range): BP systolic 87–110; BP diastolic 58–68
[2020-11-26] MEDS: HEPARIN SOD (PORCINE) 5000UNITS/ML 1ML VIAL/SYRINGE SC SCH (05:31)
[2020-11-26 08:03] LABS: HEMATOCRIT 25.7 % (36.0-47.0); HEMOGLOBIN 7.9 g/dl (12.0-15.5); MEAN CORPUSCULAR HEMOGLOBIN 30.2 pg (27.0-33.0); MEAN CORPUSCULAR HGB CONC 30.7 g/dl (32.0-36.5); MEAN CORPUSCULAR VOLUME 98.1 fl (80.0-96.0); PLATELET COUNT, AUTOMATED 246 10^3/uL (150-450); RED BLOOD COUNT 2.62 10^6/uL (4.00-5.40)
[2020-11-26] MEDS: clonazePAM 0.5 MG TAB PO SCH ×3 (08:41→20:32)
[2020-11-26] MEDS: ASPIRIN 81 MG ENTERIC TAB PO SCH (08:41)
[2020-11-26] MEDS: SERTRALINE 100 MG TAB PO SCH (08:42)
[2020-11-26] MEDS: TORSEMIDE 20 MG TAB PO SCH (08:42)
[2020-11-26] MEDS: SINEMET 25-100 MG TAB PO SCH ×4 (08:42→17:40)
[2020-11-26] MEDS: OMEPRAZOLE 20 MG CAP PO SCH (08:42)
[2020-11-26] MEDS: ACETAMINOPH W/CODEINE #3 TAB UD PO PRN ×2 (08:43→15:00)
[2020-11-26] MEDS: buPROPion (WELLBUTRIN SR) 100 MG SR TAB PO SCH (08:44)
[2020-11-26] MEDS: DIGOXIN 0.125 MG TAB PO SCH (08:44)
[2020-11-26] MEDS: CYANOCOBALAMIN 500 MCG TAB PO SCH (08:44)
[2020-11-26] MEDS ORDERED: valACYclovir HCL 500 MG TAB PO SCH (09:00)
[2020-11-26 09:21] LABS: CALCIUM LEVEL 8.7 MG/DL (8.8-10.2); CREATININE FOR GFR 2.7 MG/DL (0.55-1.30); GLOMERULAR FILTRATION RATE 18.3 (>39); POTASSIUM SERUM 3.8 MEQ/L (3.5-5.1)
--- NOTE | 2020-11-26 14:10 | IPNPDOC ---
Text Note Date of Service The patient was seen on 11/26/20. NOTE SUBJECTIVE: Patient seen and examined at bedside. No acute overnight events reported. OBJECTIVE: VS: Please see below General: NAD, sitting comfortably in chair HEENT: NC/AT, EOMI, nasal cannula in place Lungs: CTA B/L Heart: +S1S2, RRR Abd: soft, NT, +BS Ext: no edema A/P: 75 y/o F with PMH of chronic hypoxic respiratory failure (uses 2L at baseline), CAD s/p [place] (x3, x12 stents), Paroxysmal A. fib, Pacemaker / AICD (2012), Stroke (2014), Brain aneurysm (no intervention), Myasthenia Gravis , Fibromyalgia, Depression, Anxiety, Spinal stenosis, Arthritis, Tremors and GERD admitted for hypotension likely multifactorial to dehydration and beta-blockade from beta yadiel, NALLELY on CKD likely secondary to hypoperfusion, dehydration and medications combined. #NALLELY on CKD likely secondary to hypoperfusion, dehydration, medications and likely AD polycystic kidney disease -Baseline Cr 1.6 -torsemide q2d -F/u daily labs -Nephrology following #anemia - check FOBT - transfusing 1 unit PRBC - avoid heparin products #HFpEF -Neg fluid balance -Echo above, preserved EF at 50%, similar to prior on file -Trop neg x 3 - started on demadex Continue to hold ARB/ACEi -Monitor I&O's closely, daily wt, low salt diet #Generalized weakness, acute on chronic -acute on chronic physical deconditioning -Neuro consulted and saw 11/20/20: unlikely neurological in etiology, possibly metabolic vs. acute on chronic deconditioning -All CT's neg -PT: Patient is very lethargic, falling asleep consistently during the session. Patient requires consistent support to safely sit EOB and leans significantly to her Rt side. (note: Recent CT head neg for concerning findings like stroke- cannot do MRI due to cardiac device. Neuro not suspicious for CVA ) -C/w PT/OT -Optimization of nutrition #Chronic hypoxic respiratory failure -Saturating well on 2 L NC (home amount of O2) -CXR: chronic changes -Denies the diagnosis of COPD -Continue with inhaled therapy, nebulizer #CAD s/p [place] x 3, 12 stents placed -Denies chest pain, incr shortness of breath -Trop neg -AICD interrogated in ER, to f/u with cardiology -ECG baseline abnormal -Echo above -History of [place] x3, x12 stents, most recent 2009 -Holding ACEi/ARB -C/w bisoprolol holding parameter, statin, ASA #Paroxysmal A. fib -Rate controlled with HR 80's -c/w BB with holding parameters , Digoxin, ASA 81 #Stroke (2014) - c/w ASA, statin, BP control #Brain aneurysm - Patient reported that no intervention was required #Parkinson's disease -Neurology does not think she ever had myasthenia gravis confirmed based off labs -Follows o/p with neurology #Anemia, multifactorial to Vitamin B12, LOYDA -c/w Vitamin B12, venofer #Fibromyalgia / Depression / Anxiety -Currently stable -C/w Gabapentin, Sertraline, Bupropion, Clonazepam #Spinal stenosis / Arthritis -c/w Tylenol PRN #Calcium / Vitamin D deficiency -c/w Vitamin D and Calcium carbonate #GERD -C/w PPI #DVT px -Heparin SC Resolved issues: Hypotension likely multifactorial to dehydration and hypoperfusion from beta- blockade Bradycardia likely 2/2 to beta-blockade from beta yadiel DISPOSITION: Nephrology following closely. PT/OT. Possibly home with services vs. rehab. VS,Justicebone, I+O VS, Devene, I+O Laboratory Tests 11/26/20 07:50 Vital Signs Date Time Temp Pulse Resp B/P (MAP) Pulse Ox O2 Delivery O2 Flow Rate FiO2 11/26/20 09:13 18 Room Air 11/26/20 09:00 2.0 11/26/20 08:44 82 11/26/20 06:00 98.2 110/68 (82) 11/25/20 22:00 91 I&O- Last 24 Hours up to 6 AM 11/26/20 05:59 Intake Total 705 ml Output Total 600 ml Balance 105 ml LUCIE HARRISON MD Nov 26, 2020 14:10
[2020-11-26] MEDS ORDERED: DOCUSATE SODIUM 100MG CAPSULE PO PRN (15:30)
--- NOTE | 2020-11-26 19:55 | IPN ---
PROGRESS NOTE DATE: 11/26/2020 SUBJECTIVE: Ashwini was seen and examined this morning at the bedside. She continues to be bedbound and is working with physical therapy, but has reportedly not been able to ambulate. She denies any shortness of breath at rest. Reports frequent voiding. Denies dysuria. PHYSICAL EXAMINATION: VITAL SIGNS: Temperature 98.2, pulse 82, respiratory rate 18, blood pressure 110/68, sating 91 to 94% on 1 to 2 liter nasal cannula. INTAKE AND OUTPUT: Intake yesterday was 800. Urine output yesterday was recorded as 600 plus two more voids. Weight in the bed scale today is 68.7 kg. GENERAL: Patient is seen awake, alert, oriented, in no distress. HEENT: Extraocular muscles are intact. There is conjunctival pallor. NECK: Supple. Jugular veins are not elevated. HEART: Heart sounds are regular S1, S2. There is no leg edema. There is no dependent edema. LUNGS: Clear to auscultation bilaterally. She is on nasal cannula. ABDOMEN: Soft and nontender. There are bowel sounds. EXTREMITIES: Negative for cyanosis, clubbing or edema. GENITOURINARY: Her bladder is not distended and not palpable. NEUROLOGIC: Oriented x3, interactive, at baseline mentation. LABORATORY STUDIES TODAY: White count 10.0, hemoglobin 7.9, platelets 246,000. Sodium 141, potassium 3.8, bicarbonate 28, BUN 38, creatinine 2.7. INPATIENT MEDICATIONS: Reviewed by myself. She was started on Aranesp yesterday 100 mcg subcutaneously once a week. The remainder of her medications are unchanged from prior. PROBLEMS: 1. Iron deficiency anemia: Patient's hemoglobin has been low throughout her hospitalization, mostly in the 8's and 9's. She is status post three doses of Venofer. I am transfusing one unit of packed red blood cells today and echo BT is also requested. She is also started on Aranesp in view of chronic kidney disease and she got the first dose yesterday. 2. NALLELY on CKD stage 3: Patient has underlying polycystic kidney disease and renal function has been fairly unchanged the past week. Her Mendez catheter was removed several days ago. Her post void residual bladder scan showed no significant retention. Her volume status is optimized. Her electrolytes are acceptable. She continues on Torsemide every other day. 3. Heart failure with preserved ejection fraction: Patient's volume status is well optimized. Continue low dose Torsemide. She has been discontinued off of Entresto because of worsening kidney function. 4. Chronic hypoxic respiratory failure: Patient continues on her usual home oxygen of 2 liters. There are no signs of fluid overload. She continues on low dose Torsemide every other day. 5. Paroxysmal atrial fibrillation: Rate is controlled with Digoxin and patient is on aspirin 81 mg p.o. daily, and it is managed by the primary service. 6. Parkinson's disease and questionable myasthenia gravis, fibromyalgia, spinal stenosis: Patient is quite debilitated and will probably require rehabilitation.
[2020-11-26] MEDS: SENNA 8.6 MG TAB (SENOKOT) PO PRN (20:32)
[2020-11-26] MEDS: GABAPENTIN 100 MG CAP PO SCH (20:32)
[2020-11-26] MEDS: ROSUVASTATIN 10 MG TAB (CRESTOR) PO SCH (20:32)
[2020-11-26] MEDS: ACETAMINOPHEN TAB 650MG DOSE (2X325MG) PO PRN (20:33)
[2020-11-27] MEDS: ACETAMINOPHEN TAB 650MG DOSE (2X325MG) PO PRN ×2 (05:22→21:02)
[2020-11-27 06:00] VITALS: BP 105/60
[2020-11-27] MEDS: OMEPRAZOLE 20 MG CAP PO SCH (08:30)
[2020-11-27] MEDS: clonazePAM 0.5 MG TAB PO SCH ×3 (08:30→21:01)
[2020-11-27] MEDS: CYANOCOBALAMIN 500 MCG TAB PO SCH (08:30)
[2020-11-27] MEDS: buPROPion (WELLBUTRIN SR) 100 MG SR TAB PO SCH (08:30)
[2020-11-27] MEDS: SINEMET 25-100 MG TAB PO SCH ×4 (08:30→17:32)
[2020-11-27] MEDS: SERTRALINE 100 MG TAB PO SCH (08:30)
[2020-11-27] MEDS: ASPIRIN 81 MG ENTERIC TAB PO SCH (08:30)
[2020-11-27 09:04] LABS: HEMOGLOBIN 9.3 g/dl (12.0-15.5); MEAN CORPUSCULAR HEMOGLOBIN 29.6 pg (27.0-33.0); MEAN CORPUSCULAR VOLUME 95.5 fl (80.0-96.0); PLATELET COUNT, AUTOMATED 247 10^3/uL (150-450); RED BLOOD COUNT 3.14 10^6/uL (4.00-5.40); WHITE BLOOD COUNT 9.2 10^3/uL (4.0-10.0)
[2020-11-27 09:25] LABS: ALBUMIN 2.3 GM/DL (3.2-5.2); BILIRUBIN,TOTAL 0.2 MG/DL (0.2-1.0); CALCIUM LEVEL 8.9 MG/DL (8.8-10.2); CREATININE FOR GFR 2.47 MG/DL (0.55-1.30); GLOMERULAR FILTRATION RATE 20.3 (>39); POTASSIUM SERUM 3.7 MEQ/L (3.5-5.1); TOTAL PROTEIN 6.3 GM/DL (6.4-8.2)
--- NOTE | 2020-11-27 13:52 | IPN ---
PROGRESS NOTE DATE: 11/27/2020 Mrs. Sandy is seen this morning on her bedside. She is lying in the bed without any acute distress. She is using oxygen via nasal cannula. She denies any nausea, vomiting, fever, or chills. She has chronic hypoxemia and has been on home oxygen. PHYSICAL EXAMINATION: Temperature 98 degrees Fahrenheit, heart rate 76 per minute, respiratory rate 18 per minute, blood pressure 105/60 mmHg, and oxygen saturation 90% on 2 liters oxygen. Intake and output record from yesterday is probably incomplete. There is no change in her weight. Her head is atraumatic. Neck is supple and jugular venous distention (JVD) difficult to be assessed. Heart sounds are irregular, and lungs have slightly diminished breath sounds without any rales or wheezing at present. Abdomen is soft and nontender, and bowel sounds are normal. Extremities without any cyanosis or clubbing. Neurologically, she is awake, alert, and oriented times three. Today's labs show sodium 141, potassium 3.7, CO2 of 28, BUN 36, and creatinine 2.47. Glucose 149 and calcium 8.9. Hemoglobin is up to 9.3 and hematocrit 30 after 1 unit of blood transfusion yesterday. MEDICATIONS: I have reviewed all her medications, and no changes have been noticed over last 24 hours. She receives torsemide 20 mg every 2 days, and last dose was given yesterday. All her other medications are unchanged. PROBLEMS: 1. Acute kidney injury superimposed on chronic kidney disease. Most likely related to her cardiac issues. She has underlying polycystic kidney disease, which seems significantly advanced. At present she does not have any uremic symptoms, and kidney function has improved slightly over last 24 hours. Electrolytes are within normal range. 2. Anemia. She did receive a transfusion of 1 unit of packed red blood cells (RBC), and anemia has improved partially. She is also receiving Aranesp 100 mcg every . 3. Atrial fibrillation and congestive heart failure. At present, her volume status is very well compensated, although she is probably slightly dehydrated. Her diuretic dose is every 48 hours, which is appropriate. At present, her ventricular rate is well controlled. She remains on digoxin, and beta yadiel therapy has been stopped. 4. Chronic obstructive pulmonary disease (COPD) and hypoxemia. This is a chronic issue and stable at baseline. No urgent intervention is needed. 5. Generalized weakness and deconditioning. Patient is likely to require rehabilitation and will be evaluated.
[2020-11-27 14:00] VITALS: BP 111/66
--- NOTE | 2020-11-27 17:55 | IPNPDOC ---
Text Note Date of Service The patient was seen on 11/27/20. NOTE SUBJECTIVE: Patient seen and examined at bedside. No acute overnight events reported. Patient feels well today, no medical complaints. OBJECTIVE: VS: Please see below General: NAD, lying comfortably in bed, in good spirits, elderly HEENT: NC/AT, EOMI, nasal cannula in place Lungs: CTA B/L Heart: +S1S2, RRR Abd: soft, NT, +BS Ext: no edema A/P: 75 y/o F with PMH of chronic hypoxic respiratory failure (uses 2L at baseline), CAD s/p ID (x3, x12 stents), Paroxysmal A. fib, Pacemaker / AICD (2012), Stroke (2014), Brain aneurysm (no intervention), Myasthenia Gravis , Fibromyalgia, Depression, Anxiety, Spinal stenosis, Arthritis, Tremors and GERD admitted for hypotension likely multifactorial to dehydration and beta-blockade from beta yadiel, NALLELY on CKD likely secondary to hypoperfusion, dehydration and medications combined. #NALLELY on CKD likely secondary to hypoperfusion, dehydration, medications and likely AD polycystic kidney disease -essentially at baseline - Cr continues to improve #anemia - s/p 1 PRBC 11/26/20 - stable - avoid heparin products #HFpEF - continue on demadex Continue to hold ARB/ACEi -Monitor I&O's closely, daily wt, low salt diet #Generalized weakness, acute on chronic -acute on chronic physical deconditioning -Neuro consulted and saw 11/20/20: unlikely neurological in etiology, possibly metabolic vs. acute on chronic deconditioning -All CT's neg -C/w PT/OT #Chronic hypoxic respiratory failure -Saturating well on 2 L NC (home amount of O2) -CXR: chronic changes -Denies the diagnosis of COPD -Continue with inhaled therapy, nebulizer #CAD s/p ID x 3, 12 stents placed -Denies chest pain, incr shortness of breath -Trop neg -AICD interrogated in ER, to f/u with cardiology -Holding ACEi/ARB -C/w bisoprolol holding parameter, statin, ASA #Paroxysmal A. fib -Rate controlled with HR 80's -c/w BB with holding parameters , Digoxin, ASA 81 #Stroke (2014) - c/w ASA, statin, BP control #Brain aneurysm - Patient reported that no intervention was required #Parkinson's disease -Neurology does not think she ever had myasthenia gravis - as per laboratory studies -Follows o/p with neurology #Anemia, multifactorial to Vitamin B12, LOYDA -c/w Vitamin B12, aranesp #Fibromyalgia / Depression / Anxiety -Currently stable -C/w Gabapentin, Sertraline, Bupropion, Clonazepam #Spinal stenosis / Arthritis -c/w Tylenol PRN #Calcium / Vitamin D deficiency -c/w Vitamin D and Calcium carbonate #GERD -C/w PPI #DVT px -Heparin SC Resolved issues: Hypotension likely multifactorial to dehydration and hypoperfusion from beta- blockade Bradycardia likely 2/2 to beta-blockade from beta yadiel DISPOSITION: pending placement for rehab VS,Reji, I+O VS, Devene, I+O Laboratory Tests 11/27/20 08:26 Vital Signs Date Time Temp Pulse Resp B/P (MAP) Pulse Ox O2 Delivery O2 Flow Rate FiO2 11/27/20 14:00 98.6 78 18 111/66 (81) 95 Room Air 2.0 I&O- Last 24 Hours up to 6 AM 11/27/20 06:00 Intake Total 2170 ml Balance 2170 ml LUCIE HARRISON MD Nov 27, 2020 17:55
[2020-11-27 20:00] VITALS: BP 102/62
[2020-11-27] MEDS: ROSUVASTATIN 10 MG TAB (CRESTOR) PO SCH (21:01)
[2020-11-27] MEDS: SENNA 8.6 MG TAB (SENOKOT) PO PRN (21:01)
[2020-11-27] MEDS: GABAPENTIN 100 MG CAP PO SCH (21:01)
[2020-11-28] MEDS: ACETAMINOPHEN TAB 650MG DOSE (2X325MG) PO PRN ×3 (00:36→21:21)
[2020-11-28 06:00] VITALS: BP 102/62
--- NOTE | 2020-11-28 09:04 | IPN ---
PROGRESS NOTE DATE: 11/28/2020 SUBJECTIVE: Amy is seen on [address]. She is awaiting placement for rehab. She denies any chest pain or shortness of breath. Blood pressures have been satisfactory. Systolic pressure is in the 100s. Heart rate has been well-controlled, resting heart rate 70 to 90. No chest pain or shortness of breath. PHYSICAL EXAMINATION: VITAL SIGNS: Blood pressure 102/62, pulse is 91, respiratory rate is 18, 96% O2 saturation. GENERAL: She is alert, conversant, in no distress. LUNGS: Clear. HEART: Regular rate and rhythm. ABDOMEN: Soft, nontender, no peripheral edema. LABORATORY DATA: White count 92, hemoglobin 93, platelets 247,000. Sodium 141, potassium 3.7, BUN 36, creatinine is 2.4. Glucose is 149. IMPRESSION: 1. Acute kidney injury on chronic kidney disease. Renal function is stable, apparently at baseline. Nephrology is following her. 2. Anemia, hemoglobin is stable after receiving a unit of packed red blood cells on 11/26/2020. 3. Congestive heart failure with preserved ejection fraction. She is off her ARB/HEAVEN inhibitor. She is on Demadex. She seems compensated on exam. 4. Generalized weakness, physically deconditioned. Physical and Occupational Therapy are seeing her. Per Dr. Dickson's notes, plan is for some rehab. 5. Coronary artery disease. Troponins were negative, still on Bisoprolol, aspirin and statin therapy. 6. Atrial fibrillation, rate is controlled. She is on Digoxin, aspirin and Bisoprolol. 7. Anemia, hemoglobin is stable. She has iron deficiency. She gets Aranesp and B12 from Nephrology.
[2020-11-28] MEDS: clonazePAM 0.5 MG TAB PO SCH ×3 (09:29→21:21)
[2020-11-28] MEDS: buPROPion (WELLBUTRIN SR) 100 MG SR TAB PO SCH (09:30)
[2020-11-28] MEDS: SERTRALINE 100 MG TAB PO SCH (09:30)
[2020-11-28] MEDS: CYANOCOBALAMIN 500 MCG TAB PO SCH (09:30)
[2020-11-28] MEDS: TORSEMIDE 20 MG TAB PO SCH (09:30)
[2020-11-28] MEDS: OMEPRAZOLE 20 MG CAP PO SCH (09:30)
[2020-11-28] MEDS: ASPIRIN 81 MG ENTERIC TAB PO SCH (09:30)
[2020-11-28] MEDS: SINEMET 25-100 MG TAB PO SCH ×4 (09:30→17:24)
[2020-11-28 14:00] VITALS: BP 133/73
[2020-11-28] MEDS: GABAPENTIN 100 MG CAP PO SCH (21:21)
[2020-11-28] MEDS: ROSUVASTATIN 10 MG TAB (CRESTOR) PO SCH (21:21)
[2020-11-28 22:00] VITALS: BP 93/57
[2020-11-29] MEDS: ACETAMINOPHEN TAB 650MG DOSE (2X325MG) PO PRN ×2 (04:52→22:04)
[2020-11-29 06:00] VITALS: BP 97/58
[2020-11-29 06:36] LABS: HEMATOCRIT 30.6 % (36.0-47.0); HEMOGLOBIN 9.4 g/dl (12.0-15.5); MEAN CORPUSCULAR HGB CONC 30.7 g/dl (32.0-36.5); MEAN CORPUSCULAR VOLUME 97.8 fl (80.0-96.0); PLATELET COUNT, AUTOMATED 276 10^3/uL (150-450); RED BLOOD COUNT 3.13 10^6/uL (4.00-5.40); WHITE BLOOD COUNT 9.8 10^3/uL (4.0-10.0)
[2020-11-29 07:08] LABS: CREATININE FOR GFR 2.35 MG/DL (0.55-1.30); GLOMERULAR FILTRATION RATE 21.5 (>39); POTASSIUM SERUM 3.9 MEQ/L (3.5-5.1)
--- NOTE | 2020-11-29 08:43 | IPN ---
PROGRESS NOTE DATE: 11/29/2020 SUBJECTIVE: Iris has stabilized. She is awaiting placement for rehab. Has a history of acute kidney injury on chronic kidney disease with renal function back to baseline and anemia, which is stable after transfusion, and congestive heart failure for which she is currently compensated. Note that she is currently off her ARB/HEAVEN inhibitor, but is taking her Demadex and has not gone into any kind of heart failure. She has atrial fibrillation for which she is on bisoprolol, digoxin, and aspirin. OBJECTIVE: Not listed yet today. Exam is unchanged from yesterday. IMPRESSION/PLAN: She is stable for transfer to subacute rehab. We will discuss this further at care rounds today.
[2020-11-29] MEDS: OMEPRAZOLE 20 MG CAP PO SCH (08:48)
[2020-11-29] MEDS: SERTRALINE 100 MG TAB PO SCH (08:49)
[2020-11-29] MEDS: CYANOCOBALAMIN 500 MCG TAB PO SCH (08:49)
[2020-11-29] MEDS: DIGOXIN 0.125 MG TAB PO SCH (08:49)
[2020-11-29] MEDS: ASPIRIN 81 MG ENTERIC TAB PO SCH (08:49)
[2020-11-29] MEDS: SINEMET 25-100 MG TAB PO SCH ×4 (08:49→17:53)
[2020-11-29] MEDS: buPROPion (WELLBUTRIN SR) 100 MG SR TAB PO SCH (08:49)
[2020-11-29] MEDS: clonazePAM 0.5 MG TAB PO SCH ×3 (08:49→22:05)
[2020-11-29 08:50] VITALS: BP 142/73
[2020-11-29 14:00] VITALS: BP 148/79
--- NOTE | 2020-11-29 20:37 | IPN ---
NEPROLOGY PROGRESS NOTE DATE: 11/29/2020 SUBJECTIVE: Mrs. Sandy was seen this morning at her bedside. She is laying in the bed as usual. I have not seen her sitting in the chair even once. She reports feeling weak but wants to go home. PHYSICAL EXAMINATION: VITAL SIGNS: Temperature 98.5 degrees Fahrenheit, heart rate 84 per minute, respiratory rate 18 per minute, blood pressure 142/73 mm or mercury and oxygen saturation is 92% on 2 liters oxygen. HEENT: Head is atraumatic. NECK: Supple and without JVD or thyroid enlargement. HEART: Regular. LUNGS: Clear to auscultation. ABDOMEN: Soft and nontender and bowel sounds are normal. EXTREMITIES: Without any cyanosis or clubbing. She does not have any pitting edema at the present. NEUROLOGICAL: Awake and at her baseline mentation. LABORATORY STUDIES: Today's show sodium of 142, potassium 3.9, chloride 102, CO2 30, BUN 38 and creatinine 2.35, glucose 105 and calcium 9.0. White blood cell count is 9.8, hemoglobin 9.4 and hematocrit 30.6, platelet count 276. PROBLEMS: 1. Acute kidney injury superimposed on chronic kidney disease - The patient has known history of underlying chronic kidney disease which is related to polycystic kidneys. Her diuretics have been stopped and kidney function is slowly improving. At present her volume status remains well compensated. 2. Congestive heart failure she does have a history of congestive heart failure, however at present her volume status remains well compensated. She is receiving Torsemide 20 mg every 2 days and kidney function is gradually improving. I would continue with the same dose for now. 3. Anemia her anemia is stable at present and stool has tested negative for occult blood. 4. Hypertension - blood pressure seems well controlled on current antihypertensive medications. DISPOSITION: The patient wants to go home if she gets cleared by the home safety evaluation, then she can probably be discharged to home. I have advised her to follow up in the office for her chronic kidney disease.
[2020-11-29 22:00] VITALS: BP 103/60
[2020-11-29] MEDS: ROSUVASTATIN 10 MG TAB (CRESTOR) PO SCH (22:04)
[2020-11-29] MEDS: GABAPENTIN 100 MG CAP PO SCH (22:05)
[2020-11-30] MEDS: ACETAMINOPHEN TAB 650MG DOSE (2X325MG) PO PRN ×2 (05:20→21:19)
[2020-11-30] MEDS: OMEPRAZOLE 20 MG CAP PO SCH (09:23)
[2020-11-30] MEDS: TORSEMIDE 20 MG TAB PO SCH (09:23)
[2020-11-30] MEDS: buPROPion (WELLBUTRIN SR) 100 MG SR TAB PO SCH (09:23)
[2020-11-30] MEDS: SERTRALINE 100 MG TAB PO SCH (09:23)
[2020-11-30] MEDS: ASPIRIN 81 MG ENTERIC TAB PO SCH (09:23)
[2020-11-30] MEDS: CYANOCOBALAMIN 500 MCG TAB PO SCH (09:23)
[2020-11-30] MEDS: clonazePAM 0.5 MG TAB PO SCH ×3 (09:23→21:19)
[2020-11-30] MEDS: SINEMET 25-100 MG TAB PO SCH ×4 (09:23→17:30)
--- NOTE | 2020-11-30 13:38 | IPNPDOC ---
Subjective Date Seen The patient was seen on 11/30/20. Subjective Chief Complaint/HPI Pt is doing really well. She states that she is motivated to go home. Home safety evaluation is pending completion before pt can be discharged. She and the nursing staff do not report any overnight events. General: Denies: ROS Unobtainable, Chills, Night Sweats, Fatigue, Malaise, Normal Appetite, Other Symptoms Constitutional: Denies: Chills, Fever, Malaise, Night Sweats, Weakness, Fatigue, Weight Loss, Lethargy, Other Gastrointestinal: Denies: Nausea, Vomiting, Abdominal Pain, Diarrhea, Constipation, Melena, Hematochezia, Other Symptoms Objective Physical Examination General Exam: Positive: Alert, Cooperative, No Acute Distress (pt is feeling much better and sitting upright in bedside chair during exam); Negative: Mild Distress Eye Exam: Positive: Conjunctiva & lids normal ENT Exam: Positive: Atraumatic Neck Exam: Positive: Supple Chest Exam: Positive: Clear to auscultation, Normal air movement; Negative: Rales, Wheezing, Diminished Heart Exam: Positive: Rate Normal, Regular Rhythm; Negative: Gallops, Murmurs, Rubs Abdomen Exam: Positive: Normal bowel sounds, Soft, Other (bladder is full, no pain on palpation); Negative: Tenderness Extremity Exam: Negative: Edema Assessment /Plan Assessment # Acute kidney injury with on chronic kidney disease with PCKD: Diuretics have been stopped except for torsemide (q2days) to improve kidney function. Pt's volume status is compensated. Pt needs to followup at the nephrology office after discharge here. # Congestive heart failure: Volume status-compensated. Pt's torsemide 20mg administered every 2 days as kidney function improves. # Anemia: Stable at present. # Hypertension: Continue current antihypertensive medications, currently well-controlled. Plan/VTE VTE Prophylaxis Ordered?: Yes (patient is on heparin and aspirin.) GME ATTESTATION My faculty preceptor for this patient encounter was physically present during the encounter and was fully available. All aspects of the patient interview, examination, medical decision making process, and medical care plan development were reviewed and approved by the faculty preceptor. The faculty preceptor is aware and concurs with the plan as stated in the body of this note and will attest to such by his/her cosignature. VS, I&O, 24H, Fishbone Vital Signs/I&O Vital Signs Date Time Temp Pulse Resp B/P (MAP) Pulse Ox O2 Delivery O2 Flow Rate FiO2 11/30/20 09:00 2.0 11/29/20 22:00 99.9 84 18 103/60 (74) 92 Nasal Cannula I&O- Last 24 Hours up to 6 AM 11/30/20 05:59 Intake Total 1560 ml Output Total 700 ml Balance 860 ml Laboratory Data 24H LABS Laboratory Tests 2 11/29/20 14:39: Coronavirus (COVID-19)(PCR) NEGATIVE Microbiology Microbiology 11/29/20 Stool Occult Blood (JULIUS) - Final, Complete Agustin Fry DO Nov 30, 2020 13:38
--- NOTE | 2020-11-30 13:42 | IPNPDOC ---
Date Seen The patient was seen on 11/30/20. Progress Note SUBJECTIVE: No acute events overnight. [place] offered bed; however, patient would not like to go there. Cr continues to improve. She denies chest pain, n/v/d. OBJECTIVE: PHYSICAL EXAMINATION: VS: Please see below CONSTITUTIONAL: in NAD, resting in bed, AAOx3 EYES: PERRLA, EOM intact HENT, MOUTH: Normocephalic, atraumatic, moist mucous membranes NECK: SUPPLE, no JVD, no lymphadenopathy, no carotid bruit CV: sinus, S1S2 normal, no murmurs/rubs/gallops RESPIRATORY: Clear to auscultation bilaterally, no rales/rhonchi/wheezes GI: BS positive in 4 quadrants, soft, nontender, nondistended, no rebound or guarding, no organomegaly : Deferred MUSCULOSKELETAL:No cyanosis, clubbing, swelling, joint deformity, extremity edema INTEGUMENTARY: Dry skin, Intact, no rashes, no lesions, no erythema NEUROLOGIC: Cranial Nerves II-XII are intact, no focal deficits. Reflexes in tact. Increased weakness 4/5 in all ext. PSYCHIATRIC: Mood and affect are normal LABORATORY DATA: Please see below MICROBIOLOGY: IMAGING: Echocardiogram 11/17/20: EF 50% Normal sinus rhythm at 67 BPM. No intraventricular conduction disturbance. M-mode and two-dimensional echocardiography was performed with pulse, continuous wave, color flow, and tissue Doppler studies. Slightly dilated and borderline hypertrophied left ventricle with proximal inferior akinesis, but other wall motion was normal. Moderately dilated left atrium with grade 1 LV diastolic dysfunction and current estimated mean left atrial pressure slightly increased. Normal right ventricular chamber size, but wall thickness appeared to be increased with normal right ventricular free wall motion and Doppler evidence ofat least moderate pulmonary hypertension. At least mildly dilated right atrium, but normal IVC size and collapse against an elevated central venous pressure at this time. Normal aortic dimensions. Mild aortic valvular sclerosis without stenosis and very mild insufficiency. Mild degenerative changes of the mitral valve apparatus without inflow tract obstruction and only mild insufficiency. Normal appearing tricuspid valve with moderate tricuspid insufficiency. Pacing lead could be visualized traversing right heart structures, but no separate intracardiac mass. No pericardial effusion. Renal US: No hydronephrosis. Multiple innumerable cysts left kidney. There are also several cysts of the right kidney. Increased echotexture of the kidneys suggests medical renal disease. CXR: chronic changes, no definite acute infiltrate ASSESSMENT: 75 y/o F with PMH of chronic hypoxic respiratory failure (uses 2L at baseline), CAD s/p MT (x3, x12 stents), Paroxysmal A. fib, Pacemaker / AICD (2012), Stroke (2014), Brain aneurysm (no intervention), Myasthenia Gravis , Fibromyalgia, Depression, Anxiety, Spinal stenosis, Arthritis, Tremors and GERD admitted for hypotension likely multifactorial to dehydration and beta-blockade from beta yadiel, NALLELY on CKD likely secondary to hypoperfusion, dehydration and medications combined. PLAN: NALLELY on CKD likely secondary to PCKD -Cr improving slowly, currently 2.35 -Baseline Cr previously 1.6 -Started on IV lasix low dose, monitor for worsening -F/u labs, -Nephrology following HFpEF, improved -Neg fluid balance -92% on 2 L NC -Echo above, preserved EF at 50%, similar to prior on file -Trop neg x 3 -C/w current meds -Monitor I&O's closely, daily wt, low salt diet Generalized weakness, acute on chronic -acute on chronic physical deconditioning -All CT's neg -PT: Patient performs two trials of short distance ambulation and performs well today requiring just close SBA. Patient still needs to be more consistent for multiple days/sessions to be cleared for home as well as OT clearance; still recommend rehab at this time. -C/w PT/OT -Optimization of nutrition Chronic hypoxic respiratory failure -Saturating well on 2 L NC (home amount of O2) -CXR: chronic changes -Denies the diagnosis of COPD -Continue with inhaled therapy, nebulizer CAD s/p MT x 3, 12 stents placed -Denies chest pain, incr shortness of breath -Trop neg -AICD interrogated in ER, to f/u with cardiology -ECG baseline abnormal -Echo above -History of MT x3, x12 stents, most recent 2009 -C/w bisoprolol holding parameter, statin, ASA Paroxysmal A. fib -Rate controlled with HR 80's -c/w BB with holding parameters , Digoxin, ASA 81 Stroke (2014) - c/w ASA, statin, BP control Brain aneurysm - Patient reported that no intervention was required Parkinson's disease -Neurology does not think she ever had myasthenia gravis confirmed based off labs -Follows o/p with neurology Anemia, multifactorial to Vitamin B12, LOYDA -c/w Vitamin B12, venofer Fibromyalgia / Depression / Anxiety -Currently stable -C/w Gabapentin, Sertraline, Bupropion, Clonazepam Spinal stenosis / Arthritis -c/w Tylenol PRN Calcium / Vitamin D deficiency -c/w Vitamin D and Calcium carbonate GERD -C/w PPI DVT px -Heparin SC DISPOSITION: Plan is placement for rehab. PFS/SW working on this. VS, I&O, 24H, Fishbone Vital Signs/I&O Vital Signs Date Time Temp Pulse Resp B/P (MAP) Pulse Ox O2 Delivery O2 Flow Rate FiO2 11/30/20 09:00 2.0 11/29/20 22:00 99.9 84 18 103/60 (74) 92 Nasal Cannula I&O- Last 24 Hours up to 6 AM 11/30/20 05:59 Intake Total 1560 ml Output Total 700 ml Balance 860 ml Laboratory Data 24H LABS Laboratory Tests 2 11/29/20 14:39: Coronavirus (COVID-19)(PCR) NEGATIVE Microbiology Microbiology 11/29/20 Stool Occult Blood (JULIUS) - Final, Complete Current Medications Current Medications Medications (Trade) Dose Ordered Sig/Jorden Route PRN Reason Start Time Stop Time Status Last Admin Dose Admin Acetaminophen (Tylenol Tab) 650 mg Q4HP PRN PO PAIN OR FEVER 11/26/20 15:30 11/30/20 05:20 Acetaminophen/ Codeine Phosphate (Tylenol/Codeine #3 Tablet) 1 ea Q6H PRN PO PAIN 11/17/20 16:45 11/26/20 15:28 DC 11/26/20 15:00 Albuterol Sulfate (Proventil, Ventolin Hfa) 2 puff Q4H PRN INH SOB/WHEEZING 11/17/20 16:45 Albuterol/ Ipratropium (Duoneb (Ipr 0.5mg/Alb 2.5mg)) 3 ml QID PRN INH SHORTNESS OF BREATH 11/17/20 16:45 11/24/20 08:57 Aspirin (Ecotrin) 81 mg DAILY PO 11/18/20 09:00 11/30/20 09:23 Bisoprolol Fumarate (Zebeta) 2.5 mg DAILY PO 11/20/20 09:00 11/21/20 15:34 DC 11/21/20 08:15 Bisoprolol Fumarate (Zebeta) 2.5 mg DAILY PO 11/22/20 09:00 11/24/20 11:59 DC 11/23/20 08:24 Bupropion HCl (Wellbutrin Sr) 100 mg DAILY PO 11/18/20 09:00 11/30/20 09:23 Carbidopa/Levodopa (Sinemet 25/100) 1 tab 0900,1200,1500,1800 PO 11/17/20 18:00 11/30/20 12:26 Ceftriaxone Sodium 1 gm/ Dextrose 50 ml @ 100 mls/hr Q24H IV 11/19/20 15:00 11/19/20 14:58 DC Cephalexin Monohydrate (Keflex) 500 mg BID PO 11/19/20 09:00 11/20/20 13:59 DC 11/20/20 09:17 Clonazepam (KlonoPIN) 0.5 mg DAILY@1500 PO 11/18/20 15:00 11/19/20 12:11 DC 11/18/20 15:22 Clonazepam (KlonoPIN) 0.5 mg QHS PO 11/17/20 21:00 11/19/20 12:11 DC 11/18/20 21:11 Clonazepam (KlonoPIN) 0.5 mg TID@0900,1500,2100 PO 11/19/20 15:00 11/30/20 09:23 Cyanocobalamin (Vitamin B12) 500 mcg DAILY PO 11/18/20 09:00 11/30/20 09:23 Darbepoetin Piero (Aranesp) 100 mcg Th@09 SC 11/25/20 09:00 11/25/20 13:43 Digoxin (Lanoxin) 0.125 mg DAILY PO 11/18/20 09:00 11/18/20 08:16 DC Digoxin (Lanoxin) 0.125 mg MoWeFr@0900 PO 11/19/20 09:00 11/29/20 08:49 Dobutamine HCl 594402 mcg/IV Miscellaneous Supplies 250 ml @ 6 mls/hr DRIP IV 11/17/20 15:30 11/17/20 15:58 DC Docusate Sodium (Colace) 100 mg BIDP PRN PO CONSTIPATION 11/26/20 15:30 11/26/20 20:32 Furosemide (LASIX injection) 20 mg Q6H IV 11/22/20 12:30 11/22/20 18:31 DC 11/22/20 17:30 Gabapentin (Neurontin) 200 mg QHS PO 11/23/20 21:00 11/29/20 22:05 Gabapentin (Neurontin) 600 mg QHS PO 11/17/20 21:00 11/23/20 09:44 DC 11/22/20 21:21 Guaifenesin (Robitussin) 10 ml Q6HP PRN PO COUGH 11/23/20 12:00 11/23/20 15:40 Heparin Sodium (Porcine) (Heparin) 5,000 units Q8H SC 11/17/20 22:00 11/26/20 14:13 DC 11/26/20 05:31 Home Med (Med Rec Complete!) ASDIRECTED XX 11/17/20 16:15 11/17/20 16:12 DC Iron (Venofer) 100 mg DAILY IV 11/24/20 09:00 11/23/20 09:54 DC Iron 100 mg/ Sodium Chloride 105 ml @ 105 mls/hr DAILY IV 11/18/20 09:00 11/18/20 12:59 DC Iron 100 mg/ Sodium Chloride 105 ml @ 105 mls/hr Q24H IV 11/18/20 15:00 11/21/20 18:05 DC 11/21/20 15:04 Iron 100 mg/ Sodium Chloride 105 ml @ 105 mls/hr Q24H IV 11/23/20 13:00 11/25/20 13:59 DC 11/25/20 13:43 Iron 100 mg/ Sodium Chloride 105 ml @ 105 mls/hr Q24H IV 11/24/20 09:00 11/23/20 09:55 DC Omeprazole (PriLOSEC) 40 mg DAILY PO 11/18/20 09:00 11/30/20 09:23 Rosuvastatin Calcium (Crestor) 40 mg QHS PO 11/17/20 21:00 11/29/20 22:04 Senna (Senokot) 1 tab BIDP PRN PO CONSTIPATION 11/26/20 15:30 11/27/20 21:01 Sertraline HCl (Zoloft) 100 mg DAILY PO 11/18/20 09:00 11/30/20 09:23 Sodium Chloride 1,000 ml @ 85 mls/hr [id number] IV 11/17/20 18:00 11/18/20 11:39 DC 11/18/20 09:09 Sodium Chloride 1,000 ml @ 125 mls/hr Q8H IV 11/17/20 16:00 11/17/20 16:07 DC Torsemide (Demadex) 20 mg DAILY PO 11/24/20 09:00 11/24/20 09:55 DC 11/24/20 08:27 Torsemide (Demadex) 20 mg Q2D PO 11/26/20 09:00 11/30/20 09:23 Valacyclovir HCl (Valtrex) 500 mg BID PO 11/26/20 09:00 Cancel Allergies Coded Allergies: bee venom protein (honey bee) (Verified Allergy, Severe, ANAPHYLAXIS, 11/17/20) strawberry (Verified Allergy, Severe, ANAPHYLAXIS, 11/17/20) caffeine (Verified Adverse Reaction, Intermediate, heart palpitations, 11/17/20) Mari Blas MD Nov 30, 2020 13:41
[2020-11-30 14:00] VITALS: BP 168/65
[2020-11-30] MEDS: ROSUVASTATIN 10 MG TAB (CRESTOR) PO SCH (21:19)
[2020-11-30] MEDS: GABAPENTIN 100 MG CAP PO SCH (21:19)
[2020-12-01 06:00] VITALS: BP 145/64
[2020-12-01] MEDS: clonazePAM 0.5 MG TAB PO SCH ×3 (08:43→20:04)
[2020-12-01] MEDS: DIGOXIN 0.125 MG TAB PO SCH (08:43)
[2020-12-01] MEDS: SINEMET 25-100 MG TAB PO SCH ×4 (08:44→17:43)
[2020-12-01] MEDS: OMEPRAZOLE 20 MG CAP PO SCH (08:44)
[2020-12-01] MEDS: buPROPion (WELLBUTRIN SR) 100 MG SR TAB PO SCH (08:44)
[2020-12-01] MEDS: ASPIRIN 81 MG ENTERIC TAB PO SCH (08:44)
[2020-12-01] MEDS: SERTRALINE 100 MG TAB PO SCH (08:44)
[2020-12-01] MEDS: CYANOCOBALAMIN 500 MCG TAB PO SCH (08:44)
[2020-12-01 09:06] LABS: HEMATOCRIT 32.4 % (36.0-47.0); HEMOGLOBIN 10.1 g/dl (12.0-15.5); MEAN CORPUSCULAR HEMOGLOBIN 29.6 pg (27.0-33.0); MEAN CORPUSCULAR HGB CONC 31.2 g/dl (32.0-36.5); PLATELET COUNT, AUTOMATED 293 10^3/uL (150-450); RED BLOOD COUNT 3.41 10^6/uL (4.00-5.40); WHITE BLOOD COUNT 9.5 10^3/uL (4.0-10.0)
[2020-12-01 09:34] LABS: ALBUMIN 2.5 GM/DL (3.2-5.2); BILIRUBIN,TOTAL 0.2 MG/DL (0.2-1.0); CALCIUM LEVEL 9.4 MG/DL (8.8-10.2); CREATININE FOR GFR 2.15 MG/DL (0.55-1.30); GLOMERULAR FILTRATION RATE 23.9 (>39); POTASSIUM SERUM 3.6 MEQ/L (3.5-5.1); TOTAL PROTEIN 6.6 GM/DL (6.4-8.2)
[2020-12-01] MEDS: ACETAMINOPHEN TAB 650MG DOSE (2X325MG) PO PRN ×2 (11:52→18:47)
--- NOTE | 2020-12-01 13:09 | IPNPDOC ---
Subjective Date Seen The patient was seen on 12/01/20. Subjective Chief Complaint/HPI Pt is motivated to go home, however, appears fatigued. She is not as energetic as yesterday and is lying in her bed during medical interview today. Pt and nursing staff deny any overnight events. General: Denies: ROS Unobtainable, Chills, Night Sweats, Fatigue, Malaise, Normal Appetite, Other Symptoms Constitutional: Denies: Chills, Fever, Malaise, Night Sweats, Weakness, Fatigue, Weight Loss, Lethargy, Other Pulmonary: Denies: Dyspnea, Cough, Pleuritic Chest Pain, Other Symptoms Objective Physical Examination General Exam: Positive: Alert, Cooperative, No Acute Distress; Negative: Mild Distress Eye Exam: Positive: Conjunctiva & lids normal ENT Exam: Positive: Atraumatic Neck Exam: Positive: Supple Chest Exam: Positive: Clear to auscultation, Normal air movement; Negative: Rales, Wheezing, Diminished Heart Exam: Positive: Rate Normal, Regular Rhythm; Negative: Gallops, Murmurs, Rubs Abdomen Exam: Positive: Normal bowel sounds, Soft, Other (bladder is full, no pain on palpation); Negative: Tenderness Extremity Exam: Negative: Edema Assessment /Plan Assessment # Acute kidney injury with on chronic kidney disease with PCKD: Diuretics have been stopped except for torsemide (q2days) to improve kidney function. Pt's volume status is compensated. Pt needs to followup at the nephrology office after discharge here. # Congestive heart failure: Volume status-compensated. Pt's torsemide 20mg administered every 2 days as kidney function improves. # Anemia: Stable at present. # Hypertension: Continue current antihypertensive medications, currently well- controlled. Disposition: Pt is motivated to go back home, however, this PT/OT and pt's family do not believe she is ready to go home as her gait is unstable. Plan/VTE VTE Prophylaxis Ordered?: Yes (patient is on heparin and aspirin.) GME ATTESTATION My faculty preceptor for this patient encounter was physically present during the encounter and was fully available. All aspects of the patient interview, examination, medical decision making process, and medical care plan development were reviewed and approved by the faculty preceptor. The faculty preceptor is aware and concurs with the plan as stated in the body of this note and will attest to such by his/her cosignature. VS, I&O, 24H, Fishbone Vital Signs/I&O Vital Signs Date Time Temp Pulse Resp B/P (MAP) Pulse Ox O2 Delivery O2 Flow Rate FiO2 12/01/20 09:00 2.0 12/01/20 08:43 95 12/01/20 06:00 98.9 18 145/64 (91) 94 Nasal Cannula I&O- Last 24 Hours up to 6 AM 12/01/20 06:00 Intake Total 1900 ml Output Total 550 ml Balance 1350 ml Laboratory Data 24H LABS Laboratory Tests 2 12/01/20 08:25: Nucleated Red Blood Cells % (auto) 0.0, Anion Gap 9, Glomerular Filtration Rate 23.9L, Calcium Level 9.4, Total Bilirubin 0.2, Aspartate Amino Transf (AST/SGOT) 29, Alanine Aminotransferase (ALT/SGPT) 14, Alkaline Phosphatase 79, Total Protein 6.6, Albumin 2.5L, Albumin/Globulin Ratio 0.6L CBC/BMP Laboratory Tests 12/01/20 08:25 Microbiology Microbiology 11/29/20 Stool Occult Blood (JULIUS) - Final, Complete Agustin Fry DO Dec 01, 2020 13:09
[2020-12-01] MEDS: GABAPENTIN 100 MG CAP PO SCH (20:04)
[2020-12-01] MEDS: ROSUVASTATIN 10 MG TAB (CRESTOR) PO SCH (20:04)
[2020-12-02 06:00] VITALS: BP 136/64
[2020-12-02] MEDS: ACETAMINOPHEN TAB 650MG DOSE (2X325MG) PO PRN ×3 (08:37→21:21)
[2020-12-02] MEDS: SERTRALINE 100 MG TAB PO SCH (08:37)
[2020-12-02] MEDS: ASPIRIN 81 MG ENTERIC TAB PO SCH (08:37)
[2020-12-02] MEDS: CYANOCOBALAMIN 500 MCG TAB PO SCH (08:38)
[2020-12-02] MEDS: TORSEMIDE 20 MG TAB PO SCH (08:38)
[2020-12-02] MEDS: OMEPRAZOLE 20 MG CAP PO SCH (08:38)
[2020-12-02] MEDS: clonazePAM 0.5 MG TAB PO SCH ×3 (08:38→21:21)
[2020-12-02] MEDS: SINEMET 25-100 MG TAB PO SCH ×4 (08:38→17:35)
[2020-12-02] MEDS: buPROPion (WELLBUTRIN SR) 100 MG SR TAB PO SCH (08:38)
[2020-12-02 09:15] LABS: HEMATOCRIT 31.8 % (36.0-47.0); MEAN CORPUSCULAR HGB CONC 31.4 g/dl (32.0-36.5); MEAN CORPUSCULAR VOLUME 95.5 fl (80.0-96.0); PLATELET COUNT, AUTOMATED 281 10^3/uL (150-450); RED BLOOD COUNT 3.33 10^6/uL (4.00-5.40); WHITE BLOOD COUNT 9.3 10^3/uL (4.0-10.0)
[2020-12-02 09:24] LABS: ALBUMIN 2.5 GM/DL (3.2-5.2); BILIRUBIN,TOTAL 0.2 MG/DL (0.2-1.0); CALCIUM LEVEL 9.3 MG/DL (8.8-10.2); CREATININE FOR GFR 2.02 MG/DL (0.55-1.30); GLOMERULAR FILTRATION RATE 25.6 (>39); POTASSIUM SERUM 3.9 MEQ/L (3.5-5.1); TOTAL PROTEIN 6.5 GM/DL (6.4-8.2)
--- NOTE | 2020-12-02 13:22 | IPNPDOC ---
Subjective Date Seen The patient was seen on 12/02/20. Subjective Chief Complaint/HPI Pt reports that she is feeling better and that her walking has improved with the walker. She states that she is able to get to the bathroom in her room. Pt and nursing denies any overnight events. General: Denies: ROS Unobtainable, Chills, Night Sweats, Fatigue, Malaise, Normal Appetite, Other Symptoms Constitutional: Denies: Chills, Fever, Malaise, Night Sweats, Weakness, Fatigue, Weight Loss, Lethargy, Other Pulmonary: Denies: Dyspnea, Cough, Pleuritic Chest Pain, Other Symptoms Objective Physical Examination General Exam: Positive: Alert, Cooperative, No Acute Distress; Negative: Mild Distress Eye Exam: Positive: Conjunctiva & lids normal ENT Exam: Positive: Atraumatic Neck Exam: Positive: Supple Chest Exam: Positive: Clear to auscultation, Normal air movement; Negative: Rales, Wheezing, Diminished Heart Exam: Positive: Rate Normal, Regular Rhythm; Negative: Gallops, Murmurs, Rubs Abdomen Exam: Positive: Normal bowel sounds, Soft, Other (no pain on palpation); Negative: Tenderness Extremity Exam: Negative: Edema Assessment /Plan Assessment # Acute kidney injury with on chronic kidney disease with PCKD: Diuretics have been stopped except for torsemide (q2days) to improve kidney function. Pt's volume status is compensated. Pt needs to followup at the nephrology office after discharge here. # Congestive heart failure: Volume status-compensated. Pt's torsemide 20mg administered every 2 days as kidney function improves. # Anemia: Stable at present. # Hypertension: Continue current antihypertensive medications, currently well- controlled. Disposition: Pt is motivated to go back home, however, this PT/OT and pt's family do not believe she is ready to go home as her gait is unstable. Plan/VTE VTE Prophylaxis Ordered?: Yes (patient is on heparin and aspirin.) GME ATTESTATION My faculty preceptor for this patient encounter was physically present during the encounter and was fully available. All aspects of the patient interview, examination, medical decision making process, and medical care plan development were reviewed and approved by the faculty preceptor. The faculty preceptor is aware and concurs with the plan as stated in the body of this note and will attest to such by his/her cosignature. VS, I&O, 24H, Fishbone Vital Signs/I&O Vital Signs Date Time Temp Pulse Resp B/P (MAP) Pulse Ox O2 Delivery O2 Flow Rate FiO2 12/02/20 09:00 2.0 12/02/20 06:00 98.5 75 18 136/64 (88) 93 Nasal Cannula I&O- Last 24 Hours up to 6 AM 12/02/20 06:00 Intake Total 1320 ml Output Total 0 ml Balance 1320 ml Laboratory Data 24H LABS Laboratory Tests 2 12/02/20 08:09: Nucleated Red Blood Cells % (auto) 0.0, Anion Gap 10, Glomerular Filtration Rate 25.6L, Calcium Level 9.3, Total Bilirubin 0.2, Aspartate Amino Transf (AST/SGOT) 26, Alanine Aminotransferase (ALT/SGPT) 12, Alkaline Phosphatase 77, Total Protein 6.5, Albumin 2.5L, Albumin/Globulin Ratio 0.6L CBC/BMP Laboratory Tests 12/02/20 08:09 Microbiology Microbiology 11/29/20 Stool Occult Blood (JULIUS) - Final, Complete Agustin Fry DO Dec 02, 2020 13:22
[2020-12-02] MEDS: GABAPENTIN 100 MG CAP PO SCH (21:21)
[2020-12-02] MEDS: ROSUVASTATIN 10 MG TAB (CRESTOR) PO SCH (21:22)
[2020-12-03 06:26] LABS: HEMATOCRIT 31.1 % (36.0-47.0); HEMOGLOBIN 9.6 g/dl (12.0-15.5); MEAN CORPUSCULAR HEMOGLOBIN 29.4 pg (27.0-33.0); MEAN CORPUSCULAR HGB CONC 30.9 g/dl (32.0-36.5); MEAN CORPUSCULAR VOLUME 95.4 fl (80.0-96.0); PLATELET COUNT, AUTOMATED 276 10^3/uL (150-450); RED BLOOD COUNT 3.26 10^6/uL (4.00-5.40); WHITE BLOOD COUNT 9.2 10^3/uL (4.0-10.0)
[2020-12-03 06:56] LABS: ALBUMIN 2.6 GM/DL (3.2-5.2); BILIRUBIN,TOTAL 0.3 MG/DL (0.2-1.0); CREATININE FOR GFR 2.21 MG/DL (0.55-1.30); GLOMERULAR FILTRATION RATE 23.1 (>39); POTASSIUM SERUM 3.8 MEQ/L (3.5-5.1); TOTAL PROTEIN 6.6 GM/DL (6.4-8.2)
[2020-12-03] MEDS: SINEMET 25-100 MG TAB PO SCH ×2 (08:22→12:13)
[2020-12-03] MEDS: ASPIRIN 81 MG ENTERIC TAB PO SCH (08:22)
[2020-12-03] MEDS: CYANOCOBALAMIN 500 MCG TAB PO SCH (08:22)
[2020-12-03] MEDS: ACETAMINOPHEN TAB 650MG DOSE (2X325MG) PO PRN ×2 (08:22→12:13)
[2020-12-03] MEDS: OMEPRAZOLE 20 MG CAP PO SCH (08:22)
[2020-12-03] MEDS: buPROPion (WELLBUTRIN SR) 100 MG SR TAB PO SCH (08:23)
[2020-12-03] MEDS: DIGOXIN 0.125 MG TAB PO SCH (08:23)
[2020-12-03] MEDS: SERTRALINE 100 MG TAB PO SCH (08:23)
[2020-12-03] MEDS: clonazePAM 0.5 MG TAB PO SCH (08:23)
[2020-12-03] MEDS ORDERED: GABA-1171 PO (09:32)
[2020-12-03] MEDS ORDERED: TORS20TA2 PO (09:32)
[2020-12-03] MEDS ORDERED: DOK1CAP7 PO (09:32)
--- NOTE | 2020-12-03 16:49 | DS.PDOC ---
Discharge Summary General Date of Admission Nov 17, 2020 at 14:59 Date of Discharge 12/03/20 Attending Physician: Mari Blas MD Discharge Summary PAST MEDICAL HISTORY: Patient is a 75 y/o F with PMH of chronic hypoxic respiratory failure (uses 2L at baseline), CAD s/p WI (x3, x12 stents), Paroxysmal A. fib, Pacemaker / AICD (2012), Stroke (2014), Brain aneurysm (no intervention), Myasthenia Gravis , Fibromyalgia, Depression, Anxiety, Spinal stenosis, Arthritis, Tremors and GERD who presented to [facility] emergency room after having increased lethargy. The patient states for the past week she's had increased lethargy, weakness, decreased intake of fluid and food, nausea, lightheadedness, dizziness. She denies shortness of breath, vomiting, fevers, chills, sick contacts, abdominal pain, falls. She states that she saw cardiology (Dr. Robles) several weeks ago and, at that time, bisoprolol 5 mg was added to her medication regimen along with her torsemide and Entresto. She saw her primary care provider 11/16/20 and her main complaint, aside from her weakness, was that her right leg was increasingly weak. She also has increased pain secondary to a torn meniscus and arthritis on that same leg which is inoperable secondary to her cardiac condition. She was given Tylenol with Codeine and sent home by her PCP, VS were stable at that visit. She was recently admitted in September 2024 myasthenia gravis flare. The symptoms she is complaining of today are different than that visit . In the emergency room, vital signs showed temperature 96.6 F, heart rate 4050 (baseline heart rate 7080s), respiratory rate 18, blood pressure 78/43, 97% on 2 L nasal cannula which is her baseline. Troponin was negative, CK wnl. Other abnormal labs included creatinine 3.21 (baseline creatinine 1.41.8). The patient has been referred to nephrology o/p but has not yet seen them. BNP was elevated at 1122, no baseline BNP is on file for her. Her last echocardiogram w as in 2014 and showed ejection fraction of 55%. There was a concern for hypoperfusion secondary to beta-blockade. AICD was tested in the emergency room and did not seem to have anything acutely wrong with it. Dr. Ramsey with cardiology was contacted and suggested holding torsemide, bisoprolol and en tresto. The patient's blood pressure improved without any fluids but, after consultation with nephrology, decision was made to give 1 L bolus and started on continuous fluids. The patient was ultimately admitted to PCU with diagnosis of hypotension likely multifactorial to dehydration and beta-blockade from beta yadiel, NALLELY on CKD likely secondary to hypoperfusion, dehydration and medications combined. HOSPITAL COURSE: Bradycardia and hypotension quickly improved over 24 hours with IVFs and c essation of BB. Creatinine initially did not improve and renal US was ordered, nephrology was consulted. Due to prolonged hypotension before admission, it is believed NALLELY was likely worsened by this in addition to medication she was taking at home. All ARB, diuretics were stopped. Renal uS showed likely PCKD and nephrology followed closely. Mendez catheter was placed and later removed, she currently is making good urine. Nephrology has been following closely and gradually incorporated a low dose torsemide Q2days back into regimen. Her HFpEF slowly improved and she currently remains on home amount O2 2LNC. Echo showed preserved EF at 50%, similar to prior on file. BB was not reintroduced. She previously lived alone; however, there was some concerns with her prior independent living situation, as family felt she was always somewhat unsteady on her feet. Her generalized weakness was likely acute on chronic 2/2 to physical deconditioning, acute events. All CT's neg. PT recommended continued rehab prior to returning home. Nutrition was optimized. Other chronic issues remained stable. 12/03/20 patient was offered a bed at [facility], which she accepted. At time of discharge, patient had no acute complaints. She will need to follow up with both nephrology and cardiology as o/p. REVIEW OF SYSTEMS: Neg except mentioned above PAST MEDICAL HISTORY: Chronic hypoxic respiratory failure (uses 2L at baseline), CAD s/p WI (x3, x12 stents), Paroxysmal A. fib, Pacemaker / AICD (2012), Stroke (2014), Brain aneurysm (no intervention), Myasthenia Gravis , Fibromyalgia, Depression, Anxiety, Spinal stenosis, Arthritis, Tremors and GERD PAST SURGICAL HISTORY: Cardiac catheterization Left arm titanium plate and screws Spinal fusion Cardiac stenting x 12 AICD/PM Benign tumor removal of right shoulder blade Cystocele/rectocele repair Total abdominal hysterectomy Tonsillectomy and adenoidectomy Colonoscopy FAMILY HISTORY: Father with a history of bone cancer, at the age of 57 and mother with a history of cervical cancer, at the age of 41 SOCIAL HISTORY: Denies the use of alcohol or illicit drugs; patient reports that she is an active smoker and has smoked for greater than 50 years Denies recent travel or sick contacts Lives alone PCP-[facility]- Dr. Robles (as of two weeks ago) Neurology- Dr. Sanford Orthopedic surgery-unknown name but to see soon for torn meniscus PHYSICAL EXAMINATION: VS: Please see below CONSTITUTIONAL: in NAD, resting in bed, AAOx3 EYES: PERRLA, EOM intact HENT, MOUTH: Normocephalic, atraumatic, moist mucous membranes NECK: SUPPLE, no JVD, no lymphadenopathy, no carotid bruit CV: sinus, S1S2 normal, no murmurs/rubs/gallops RESPIRATORY: Clear to auscultation bilaterally, no rales/rhonchi/wheezes GI: BS positive in 4 quadrants, soft, nontender, nondistended, no rebound or guarding, no organomegaly : Deferred MUSCULOSKELETAL:No cyanosis, clubbing, swelling, joint deformity, extremity edema INTEGUMENTARY: Dry skin, Intact, no rashes, no lesions, no erythema NEUROLOGIC: Cranial Nerves II-XII are intact, no focal deficits. Reflexes in tact. Increased weakness 4/5 in all ext. PSYCHIATRIC: Mood and affect are normal LABORATORY DATA: Please see below IMAGING: Echocardiogram 11/17/20: EF 50% Normal sinus rhythm at 67 BPM. No intraventricular conduction disturbance. M-mode and two-dimensional echocardiography was performed with pulse, continuous wave, color flow, and tissue Doppler studies. Slightly dilated and borderline hypertrophied left ventricle with proximal inferior akinesis, but other wall motion was normal. Moderately dilated left atrium with grade 1 LV diastolic dysfunction and current estimated mean left atrial pressure slightly increased. Normal right ventricular chamber size, but wall thickness appeared to be increased with normal right ventricular free wall motion and Doppler evidence ofat least moderate pulmonary hypertension. At least mildly dilated right atrium, but normal IVC size and collapse against an elevated central venous pressure at this time. Normal aortic dimensions. Mild aortic valvular sclerosis without stenosis and very mild insufficiency. Mild degenerative changes of the mitral valve apparatus without inflow tract obstruction and only mild insufficiency. Normal appearing tricuspid valve with moderate tricuspid insufficiency. Pacing lead could be visualized traversing right heart structures, but no separate intracardiac mass. No pericardial effusion. Renal US: No hydronephrosis. Multiple innumerable cysts left kidney. There are also several cysts of the right kidney. Increased echotexture of the kidneys suggests medical renal disease. CXR: chronic changes, no definite acute infiltrate ASSESSMENT: 75 y/o F with PMH of chronic hypoxic respiratory failure (uses 2L at baseline), CAD s/p WI (x3, x12 stents), Paroxysmal A. fib, Pacemaker / AICD (2012), Stroke (2014), Brain aneurysm (no intervention), Myasthenia Gravis , Fibromyalgia, Depression, Anxiety, Spinal stenosis, Arthritis, Tremors and GERD admitted for hypotension likely multifactorial to dehydration and beta-blockade from beta yadiel, NALLELY on CKD likely secondary to hypoperfusion, dehydration and medications combined. PLAN: Generalized weakness, acute on chronic -acute on chronic physical deconditioning -All CT's neg -PT: Please review notes -C/w PT/OT, optimization of nutrition NALLELY on CKD likely secondary to PCKD -Cr still elevated at 2.21, near her new baseline -On torsemide Q2D low dose, monitor for worsening -F/u labs regularly -Nephrology will need to f/u as o/p, should be already scheduled prior to d/c HFpEF, improved -92% on 2 L NC (home amount) -Echo above, preserved EF at 50%, similar to prior on file -C/w current meds , holding BB, ARB -Monitor I&O's closely, daily wt, low salt diet Chronic hypoxic respiratory failure -Saturating well on 2 L NC (home amount of O2) -CXR: chronic changes -Denies the diagnosis of COPD -Continue with current therapy CAD s/p WI x 3, 12 stents placed -Denies chest pain, incr shortness of breath -Trop neg -AICD interrogated in ER, to f/u with cardiology -ECG baseline abnormal -Echo above -History of WI x3, x12 stents, most recent 2009 -C/w statin, ASA. BB held Paroxysmal A. fib -Rate controlled with HR 80's -c/w Digoxin, ASA 81 Stroke (2014) - c/w ASA, statin, BP control Brain aneurysm - Patient reported that no intervention was required Parkinson's disease -Neurology does not think she ever had myasthenia gravis confirmed based off labs -Follows o/p with neurology Anemia, multifactorial to Vitamin B12, LOYDA -c/w Vitamin B12 Fibromyalgia / Depression / Anxiety -Currently stable -C/w Gabapentin, Sertraline, Bupropion, Clonazepam Spinal stenosis / Arthritis -c/w Tylenol PRN Calcium / Vitamin D deficiency -c/w Vitamin D and Calcium carbonate GERD -C/w PPI DISPOSITION: Discharged today to rehab with f/u with nephrology, will need to f/u with cardiology as well. TIME SPENT ON DISCHARGE: Greater than 30 minutes. Vital Signs/I&Os Vital Signs Date Time Temp Pulse Resp B/P (MAP) Pulse Ox O2 Delivery O2 Flow Rate FiO2 12/03/20 09:00 2.0 12/03/20 08:23 75 12/03/20 06:00 98.7 18 94 Nasal Cannula 12/02/20 06:00 136/64 (88) I&O- Last 24 Hours up to 6 AM 12/03/20 05:59 Intake Total 630 ml Output Total 0 ml Balance 630 ml Laboratory Data Labs 24H Laboratory Tests 2 12/03/20 06:07: Nucleated Red Blood Cells % (auto) 0.0, Anion Gap 3L, Glomerular Filtration Rate 23.1L, Calcium Level 9.0, Total Bilirubin 0.3, Aspartate Amino Transf (AST/SGOT) 35, Alanine Aminotransferase (ALT/SGPT) 16, Alkaline Phosphatase 85, Total Protein 6.6, Albumin 2.6L, Albumin/Globulin Ratio 0.7L 12/03/20 10:27: Coronavirus (COVID-19)(PCR) NEGATIVE CBC/BMP Laboratory Tests 12/03/20 06:07 Microbiology Microbiology 11/29/20 Stool Occult Blood (JULIUS) - Final, Complete Discharge Medications Scheduled Aspirin (Aspirin EC) 81 Mg Tablet.dr, 81 MG PO DAILY, (Reported) Bupropion HCl (Wellbutrin Sr) 100 Mg Tab.sr.12h, 100 MG PO DAILY, (Reported) Carbidopa/Levodopa (Carbidopa-Levodopa 25-100 Tab) 1 Each Tablet, 1 TAB PO QID, (Reported) 0900/1200/1500/1800 Cholecalciferol (Vitamin D3) (D3-50) 1,250 Mcg Capsule, 1,250 MCG PO QMONTH, (Reported) Clonazepam (Clonazepam) 0.5 Mg Tablet, 0.5 MG PO QHS, (Reported) Cyanocobalamin (Vitamin B-12) (Vitamin B-12) 500 Mcg Tablet, 500 MCG PO DAILY, (Reported) Digoxin (Digoxin) 125 Mcg Tablet, 125 MCG PO 3XW, (Reported) MON, WED, FRI Gabapentin (Gabapentin) 100 Mg Capsule, 200 MG PO QHS Omeprazole (Omeprazole) 40 Mg Capsule.dr, 40 MG PO DAILY, (Reported) Rosuvastatin Calcium (Rosuvastatin Calcium) 40 Mg Tablet, 40 MG PO QHS, (Report ed) Sertraline HCl (Sertraline HCl) 100 Mg Tablet, 100 MG PO DAILY, (Reported) Torsemide (Torsemide) 20 Mg Tablet, 20 MG PO Q2D Scheduled PRN Acetaminophen with Codeine (Acetaminophen-Cod #3 Tablet) 1 Each Tablet, 1 TAB PO Q6H PRN for PAIN, (Reported) MDD = 4 Albuterol Sulfate (Ventolin Hfa) 18 Gm Hfa.aer.ad, 2 PUFFS INH Q4H PRN for SOB/WHEEZING, (Reported) Clonazepam (Clonazepam) 0.5 Mg Tab.rapdis, 0.5 MG PO BID PRN for ANXIETY/AGITATION, (Reported) ALLOWED TO TAKE 2 ADDITIONAL DOSES FOR UP 3 DOSES DAILY Docusate Sodium (Dok) 100 Mg Capsule, 100 MG PO BIDP PRN for CONSTIPATION Epinephrine (Epinephrine) 0.3 Mg/0.3 Ml Auto.injct, 0.3 MG INJ PRN PRN for ALLERGIC REACTION, (Reported) Glycerin/Propylene Glycol (Artificial Tears Drops) 15 Ml Drops, 1 DROP OU QID PRN for DRY EYES, (Reported) Ipratropium/Albuterol Sulfate (Iprat-Albut 0.5-3(2.5) mg/3 ml) 3 Ml Ampul.neb, 1 HANSA INH QID PRN for SHORTNESS OF BREATH, (Reported) Lidocaine/Menthol (Icy Hot 4%-1% Patch) 1 Each Adh..patch, 1 PATCH TOP TID PRN for PAIN, (Reported) BACK/KNEE Menthol/Camphor (Freeze It Relief Gel) 113.4 Gm Gel..gram., 1 DOSE TOP BID PRN for SCIATIC PAIN, (Reported) APPLY TO RIGHT LEG AND BACK Nitroglycerin (Nitrostat) 0.4 Mg Tab.subl, 0.4 MG SL NITRO PRN for CHEST PAIN, (Reported) Allergies Coded Allergies: bee venom protein (honey bee) (Verified Allergy, Severe, ANAPHYLAXIS, 11/17/20) strawberry (Verified Allergy, Severe, ANAPHYLAXIS, 11/17/20) caffeine (Verified Adverse Reaction, Intermediate, heart palpitations, 11/17/20) Mari Blas MD Dec 03, 2020 16:49
== END 2020-12-03 13:55 | DRG 682 ==
LOC: EDBD 13:39 → M ED 13:39 → M ED INP 14:59 → M PCU 18:15 → M MS5PR 11-21 15:30
PROVIDERS: ADMIT Internal Medicine; ATTEND Internal Medicine
PROC: 30233N1 Transfusion of Nonautologous Red Blood Cells into Peripheral Vein, Percutaneous Approach (ICD-10-PCS; principal; 2020-11-26)
DX: N17.0 Acute kidney failure with tubular necrosis (principal); I50.33 Acute on chronic diastolic (congestive) heart failure; J96.11 Chronic respiratory failure with hypoxia; Q61.2 Polycystic kidney, adult type; N39.0 Urinary tract infection, site not specified; I95.9 Hypotension, unspecified; N25.81 Secondary hyperparathyroidism of renal origin; I25.10 Atherosclerotic heart disease of native coronary artery without angina pectoris; I25.2 Old myocardial infarction; Z66 Do not resuscitate; I48.0 Paroxysmal atrial fibrillation; M79.7 Fibromyalgia; F32.9 Major depressive disorder, single episode, unspecified; F41.9 Anxiety disorder, unspecified; K21.9 Gastro-esophageal reflux disease without esophagitis; R53.1 Weakness; R26.81 Unsteadiness on feet; E86.0 Dehydration; D50.9 Iron deficiency anemia, unspecified; F17.200 Nicotine dependence, unspecified, uncomplicated; N18.30 Chronic kidney disease, stage 3 unspecified; D63.1 Anemia in chronic kidney disease; E55.9 Vitamin D deficiency, unspecified; G20 Parkinson's disease; R25.1 Tremor, unspecified; Z91.018 Allergy to other foods; Z99.81 Dependence on supplemental oxygen; Z95.5 Presence of coronary angioplasty implant and graft; Z95.810 Presence of automatic (implantable) cardiac defibrillator; Z86.73 Personal history of transient ischemic attack (TIA), and cerebral infarction without residual deficits; Z98.1 Arthrodesis status; Z20.822 Contact with and (suspected) exposure to COVID-19; Z79.82 Long term (current) use of aspirin; Z91.030 Bee allergy status; Z79.899 Other long term (current) drug therapy

== ENCOUNTER → 2020-12-15 | Outpatient (REF) | payer MEDICARE, MEDICAID ==
[~2020-12-15] MED LIST changes: +ACET1TAB16 PO; +BISO5TAB14 PO; +DOK1CAP7 PO; +GABA-1171 PO; +ROSU40TA4 PO
[2020-12-15 16:12] LABS: ALBUMIN 3.1 GM/DL (3.2-5.2); BILIRUBIN,TOTAL 0.2 MG/DL (0.2-1.0); CALCIUM LEVEL 8.5 MG/DL (8.8-10.2); CREATININE FOR GFR 2.35 MG/DL (0.55-1.30); FREE T4 0.75 NG/DL (0.76-1.46); GLOMERULAR FILTRATION RATE 21.5 (>39); POTASSIUM SERUM 4.3 MEQ/L (3.5-5.1); THYROID STIMULATING HORMONE 1.25 uIU/ML (0.358-3.740); TOTAL PROTEIN 6.6 GM/DL (6.4-8.2)
[2020-12-15 16:16] LABS: BASO % 0.5 % (0.0-1.0); EOS # 0.2 10^3/uL (0.0-0.5); EOS % 3.7 % (0.0-3.0); HEMATOCRIT 32.1 % (36.0-47.0); HEMOGLOBIN 9.9 g/dl (12.0-15.5); LYMPH # 1.4 10^3/uL (1.5-5.0); LYMPH % 22.8 % (24.0-44.0); MEAN CORPUSCULAR HEMOGLOBIN 29.3 pg (27.0-33.0); MEAN CORPUSCULAR HGB CONC 30.8 g/dl (32.0-36.5); MONO # 0.6 10^3/uL (0.0-0.8); MONO % 9.3 % (0.0-5.0); NEUTROPHILS % 63.1 % (36.0-66.0); PLATELET COUNT, AUTOMATED 273 10^3/uL (150-450); RED BLOOD COUNT 3.38 10^6/uL (4.00-5.40); WHITE BLOOD COUNT 6.3 10^3/uL (4.0-10.0)
== END ==
LOC: M SFHCCLAY 11:03
PROVIDERS: ATTEND Nurse Practitioner Family
DX: N17.9 Acute kidney failure, unspecified (principal); Z79.899 Other long term (current) drug therapy
CPT/HCPCS: 80053; 84439; 84443; 85025; G0463

== ENCOUNTER → 2020-12-23 | Outpatient (REF) | payer MEDICARE, MEDICAID ==
[2020-12-23 17:00] LABS: ALBUMIN 3.2 GM/DL (3.2-5.2); BILIRUBIN,TOTAL 0.3 MG/DL (0.2-1.0); CALCIUM LEVEL 8.6 MG/DL (8.8-10.2); CREATININE FOR GFR 2.2 MG/DL (0.55-1.30); GLOMERULAR FILTRATION RATE 23.2 (>39); TOTAL PROTEIN 6.7 GM/DL (6.4-8.2)
== END ==
LOC: M SFHCCLAY 10:34
PROVIDERS: ATTEND Nurse Practitioner Family
DX: N17.9 Acute kidney failure, unspecified (principal)
CPT/HCPCS: 80053; G0463

== ENCOUNTER 2021-01-10 12:16 | Inpatient (IN) | payer MEDICARE, MEDICAID ==
[~2021-01-10] VITALS: Ht 162.6 cm; Wt 65.5 kg
[2021-01-10] MEDS ORDERED: NS 500 ML IV ONE (12:35)
[2021-01-10 13:06] LABS: BASO % 0.4 % (0.0-1.0); EOS # 0.2 10^3/uL (0.0-0.5); EOS % 3.2 % (0.0-3.0); HEMATOCRIT 34.1 % (36.0-47.0); HEMOGLOBIN 10.8 g/dl (12.0-15.5); LYMPH # 1.3 10^3/uL (1.5-5.0); LYMPH % 22.8 % (24.0-44.0); MEAN CORPUSCULAR HEMOGLOBIN 29.3 pg (27.0-33.0); MEAN CORPUSCULAR HGB CONC 31.7 g/dl (32.0-36.5); MEAN CORPUSCULAR VOLUME 92.7 fl (80.0-96.0); MONO # 0.4 10^3/uL (0.0-0.8); MONO % 7.6 % (2.0-8.0); NEUTROPHILS # 3.7 10^3/uL (1.5-8.5); NEUTROPHILS % 65.3 % (36.0-66.0); PLATELET COUNT, AUTOMATED 157 10^3/uL (150-450); RED BLOOD COUNT 3.68 10^6/uL (4.00-5.40); WHITE BLOOD COUNT 5.7 10^3/uL (4.0-10.0)
[2021-01-10 13:49] LABS: ALBUMIN 3.1 GM/DL (3.2-5.2); ALT/SGPT 137 U/L (12-78); BILIRUBIN,DIRECT 0.2 MG/DL (0.0-0.2); BILIRUBIN,TOTAL 0.3 MG/DL (0.2-1.0); CK-MB VALUE MASS < 1.0 NG/ML (<3.6); CPK CREATINE PHOSPHOKINASE 98 U/L (26-192); DIGOXIN LEVEL 1.2 NG/ML (0.5-2.0); LIPASE 226 U/L (73-393); MB/CK RELATIVE INDEX 1.02 (< OR =4); TOTAL PROTEIN 6.4 GM/DL (6.4-8.2); TROPONIN I 0.04 NG/ML (< 0.10)
[2021-01-10] MEDS ORDERED: SINEMET 25-100 MG TAB PO STA (14:29)
[2021-01-10] MEDS ORDERED: clonazePAM 0.5 MG TAB PO ONE (14:30)
--- NOTE | 2021-01-10 15:15 | REP ---
INDICATION: left sided abdominal pain COMPARISON: None TECHNIQUE: Axial noncontrast images from the lung bases to the pubic symphysis with coronal and sagittal reformations. This CT examination was performed using the following dose reduction techniques: Automated exposure control, adjustment of mA and/or kv according to the patient's size, and use of iterative reconstruction technique. FINDINGS: Left kidney includes innumerable cysts measuring up to approximately 5.5 cm along with few nonobstructing nephroliths up to 4.5 mm and renovascular calcifications. There is no associated acute perinephric stranding and no definite hydroureteronephrosis. Rounded intraluminal calcifications along the left retroperitoneal space are likely phleboliths within the left gonadal vein although ureteral calculi cannot definitively be excluded. The right kidney demonstrates multiple cysts measuring up to 3 cm as well as 1.2 cm rounded hyperdense lesion which may represent proteinaceous cyst or mass as well as few renovascular calcifications and no evidence for perinephric stranding or hydronephrosis. Liver, spleen, pancreas, and bilateral adrenal glands are relatively normal for noncontrast evaluation. Evidence for prior cholecystectomy noted. The enteric system is without obstruction or acute inflammatory process. Pelvis demonstrates normal bladder and evidence for prior hysterectomy along with left adnexal cysts likely related to the ovary measuring up to 2.7 cm. No ascites. No free air. No adenopathy. Extensive atherosclerotic changes to the aorta and vasculature noted without significant aneurysm. Osseous structures demonstrate degenerative changes. IMPRESSION: 1. Polycystic renal changes (left greater than right) without obvious acute perinephric stranding or hydroureteronephrosis. Calcifications along the path of the left ureter are likely phleboliths within the left gonadal vein and less likely ureteral calculi. 2. No obvious acute abdominopelvic pathology otherwise appreciated. Specifically, no ascites, focal inflammatory stranding, adenopathy or free air. 3. Extensive atherosclerotic disease. 4. Evidence for prior cholecystectomy and hysterectomy with presumed chronic 2.7 cm left adnexal cyst. <Electronically signed by Carson Alvarez > 01/10/21 [id number]
[2021-01-10 15:18] LABS: INR 1.03; PROTHROMBIN TIME 13.7 SECONDS (12.5-14.3)
[2021-01-10 15:20] LABS: PARTIAL THROMBOPLASTIN TIME 39.5 SECONDS (24.2-38.5)
[2021-01-10] MEDS ORDERED: MORPHINE 2 MG/ML 1ML VIAL (J2270) IV ONE (15:30)
[2021-01-10 15:50] LABS: RSV AMPLIFICATION NEGATIVE (NEGATIVE)
--- NOTE | 2021-01-10 16:05 | ECGEPIP ---
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
[2021-01-10 16:15] LABS: HEPATITIS A ANTIBODY IGM NEGATIVE (NEGATIVE); HEPATITIS B CORE ANTIBODY IGM NEGATIVE (NEGATIVE); HEPATITIS B SURFACE ANTIGEN NEGATIVE (NEGATIVE); HEPATITIS C VIRUS ABY INDEX < 0.0 INDEX (<0.8)
[2021-01-10] MEDS ORDERED: BISO5TAB14 PO (16:22)
[2021-01-10] MEDS ORDERED: POTA20TA6 INH (16:22)
[2021-01-10] MEDS ORDERED: ACETAMINOPHEN TAB 650MG DOSE (2X325MG) PO PRN (16:55)
[2021-01-10] MEDS ORDERED: TORS20TA2 PO (16:59)
[2021-01-10] MEDS ORDERED: GABA-1171 PO (16:59)
[2021-01-10] MEDS ORDERED: ZOLO100T PO (16:59)
--- NOTE | 2021-01-10 17:13 | HPEPDOC ---
General Date of Admission Jan 10, 2021 at 16:53 Date of Service: Jan 10, 2021 Chief Complaint The patient is a 75-year-old female admitted with a reason for visit of Acute Or Chronic Renal Failure Transminitis. Source: Patient Exam Limitations: No limitations Timing/Duration: Week(s) Severity: Moderate History of Present Illness Patient is a 75 y/o F with PMH of chronic hypoxic respiratory failure (uses 2L a t baseline), CAD s/p [place] (x3, x12 stents), Paroxysmal A. fib, Pacemaker / AICD (2012), Stroke (2014), Brain aneurysm (no intervention), Myasthenia Gravis , Parkinson diseases, Fibromyalgia, Depression, Anxiety, Spinal stenosis, Arthritis, Tremors and GERD who presented to [facility] with a generalized weakness and right upper abdominal pain. Patient stated that for past week she has been having increased generalized weakness associated with right upper quadrant pain. Patient states that she chronically takes acetaminophen up to 6 pills in a day due to left hip and left ankle pain. In emergency room patient was found to have no leukocytosis, hemoglobin 10.8, potassium 3.1, creatinine 2.3, AST 752, ALT 137, Alk phos 283. CT abdomen/pelvis showed Polycystic renal changes (left greater than right) without obvious acute perinephric stranding or hydroureteronephrosis. Calcifications along the path of the left ureter are likely phleboliths within the left gonadal vein and less likely ureteral calculi. No obvious acute abdominopelvic pathology otherwise appreciated. Specifically, no ascites, focal inflammatory stranding, adenopathy or free air. Home Medications Scheduled Aspirin (Aspirin EC) 81 Mg Tablet.dr, 81 MG PO DAILY, (Reported) Bisoprolol Fumarate (Bisoprolol Fumarate) 5 Mg Tablet, 2.5 MG PO DAILY, (Reported) Carbidopa/Levodopa (Carbidopa-Levodopa 25-100 Tab) 1 Each Tablet, 1 TAB PO QID, (Reported) 0900/1200/1500/1800 Cholecalciferol (Vitamin D3) (D3-50) 1,250 Mcg Capsule, 1,250 MCG PO QMONTH, (Reported) Cyanocobalamin (Vitamin B-12) (Vitamin B-12) 500 Mcg Tablet, 500 MCG PO DAILY, (Reported) Digoxin (Digoxin) 125 Mcg Tablet, 125 MCG PO 3XW, (Reported) MON, WED, FRI Gabapentin (Gabapentin) 100 Mg Capsule, 200 MG PO QHS, (Reported) Omeprazole (Omeprazole) 40 Mg Capsule.dr, 40 MG PO DAILY, (Reported) Rosuvastatin Calcium (Rosuvastatin Calcium) 40 Mg Tablet, 40 MG PO QHS, (Reported) Sertraline Hcl (Zoloft) 100 Mg Tablet, 100 MG PO DAILY, (Reported) Torsemide (Torsemide) 20 Mg Tablet, 20 MG PO Q2D, (Reported) Scheduled PRN Albuterol Sulfate (Ventolin Hfa) 18 Gm Hfa.aer.ad, 2 PUFFS INH Q4H PRN for SOB/WHEEZING, (Reported) Clonazepam (Clonazepam) 0.5 Mg Tablet, 0.5 MG PO TID PRN for ANXIETY, (Reported) Epinephrine (Epinephrine) 0.3 Mg/0.3 Ml Auto.injct, 0.3 MG INJ PRN PRN for ALLERGIC REACTION, (Reported) Glycerin/Propylene Glycol (Artificial Tears Drops) 15 Ml Drops, 1 DROP OU QID PRN for DRY EYES, (Reported) Ipratropium/Albuterol Sulfate (Iprat-Albut 0.5-3(2.5) mg/3 ml) 3 Ml Ampul.neb, 1 HANSA INH QID PRN for SHORTNESS OF BREATH, (Reported) Lidocaine/Menthol (Icy Hot 4%-1% Patch) 1 Each Adh..patch, 1 PATCH TOP TID PRN for PAIN, (Reported) BACK/KNEE Menthol/Camphor (Freeze It Relief Gel) 113.4 Gm Gel..gram., 1 DOSE TOP BID PRN for SCIATIC PAIN, (Reported) APPLY TO RIGHT LEG AND BACK Nitroglycerin (Nitrostat) 0.4 Mg Tab.subl, 0.4 MG SL NITRO PRN for CHEST PAIN, (Reported) Allergies Coded Allergies: bee venom protein (honey bee) (Verified Allergy, Severe, ANAPHYLAXIS, 11/17/20) strawberry (Verified Allergy, Severe, ANAPHYLAXIS, 11/17/20) caffeine (Verified Adverse Reaction, Intermediate, heart palpitations, 11/17/20) Past Medical History Medical History Chronic hypoxic respiratory failure (uses 2L at baseline), CAD s/p [place] (x3, x12 stents), Paroxysmal A. fib, Pacemaker / AICD (2012), Stroke (2015), Brain aneurysm (no intervention), Myasthenia Gravis , Fibromyalgia, Depression, Anxiety, Spinal stenosis, Arthritis, Tremors and GERD, Parkinson's diseases, polycystic kidney diseases Surgical History Cardiac catheterization Left arm titanium plate and screws Spinal fusion Cardiac stenting x 12 AICD/PM Benign tumor removal of right shoulder blade Cystocele/rectocele repair Total abdominal hysterectomy Tonsillectomy and adenoidectomy Colonoscopy Family History Father with a history of bone cancer, at the age of 57 and mother with a history of cervical cancer, at the age of 41 Social History * Smoker: former Smoker Alcohol: Denies Drugs: denies A-FIB/CHADSVASC A-FIB History Current/History of A-Fib/PAF?: No Current PO Anticoag Therapy: No Review of Systems Constitutional: Reports: Weakness, Fatigue; Denies: Chills, Fever Eyes: Denies: Pain ENT: Denies: Head Aches Skin: Denies: Rash, Lesions Pulmonary: Denies: Dyspnea Cardiovascular: Denies: Chest Pain Gastrointestinal: Reports: Abdominal Pain (right upper quadrant); Denies: Nausea, Vomiting Genitourinary: Denies: Dysuria, Frequency Hematologic: Denies: Bruising Endocrine: Denies: Polydipsia Musculoskeletal: Denies: Neck Pain Neurological: Denies: Weakness Psych: Reports: Mood Normal Physical Examination General Exam: Positive: Alert, Cooperative ENT Exam: Positive: Atraumatic Neck Exam: Positive: Supple Chest Exam: Positive: Diminished Heart Exam: Positive: Rate Normal Telemetry: Positive: No significant arrhythmia Abdomen Exam: Positive: Normal bowel sounds, Tenderness (mild right upper quadrant tenderness) Extremity Exam: Negative: Clubbing Skin Exam: Negative: Nl turgor and temperature Neuro Exam: Positive: Cranial Nerves 3-12 NL Psych Exam: Positive: Mental status NL Vital Signs Vital Signs Date Time Temp Pulse Resp B/P (MAP) Pulse Ox O2 Delivery O2 Flow Rate FiO2 01/10/21 16:16 65 100 Nasal Cannula 2.0 01/10/21 16:15 107/59 (75) 01/10/21 12:37 97.4 17 Laboratory Data Labs 24H Laboratory Tests 2 01/10/21 12:33: Immature Granulocyte % (Auto) 0.7, Neutrophils (%) (Auto) 65.3, Lymphocytes (%) (Auto) 22.8L, Monocytes (%) (Auto) 7.6, Eosinophils (%) (Auto) 3.2H, Basophils (%) (Auto) 0.4, Neutrophils # (Auto) 3.7, Lymphocytes # (Auto) 1.3L, Monocytes # (Auto) 0.4, Eosinophils # (Auto) 0.2, Basophils # (Auto) 0.0, Nucleated Red Blood Cells % (auto) 0.0, Total Bilirubin 0.3, Direct Bilirubin 0.2, Aspartate Amino Transf (AST/SGOT) 752H, Alanine Aminotransferase (ALT/SGPT) 137H, Alkaline Phosphatase 283H, Total Creatine Kinase 98, Creatine Kinase MB < 1.0, Creatine Kinase MB Relative Index 1.02, Troponin I 0.04, Total Protein 6.4, Albumin 3.1L, Albumin/Globulin Ratio 0.9L, Lipase 226, Digoxin Level 1.2 01/10/21 12:45: Urine Color YELLOW, Urine Appearance CLOUDYH, Urine pH 6.0, Urine Specific [place] 1.018, Urine Protein 1+H, Urine Glucose (UA) NEGATIVE, Urine Ketones NEGATIVE, Urine Blood 2+H, Urine Nitrite NEGATIVE, Urine Bilirubin NEGATIVE, Urine Urobilinogen 0.2, Urine Leukocyte Esterase 1+H, Urine WBC (Auto) 2, Urine RBC (Auto) 0, Urine Hyaline Casts (Auto) 0, Urine Bacteria (Auto) 1+H, Urine Squamous Epithelial Cells 3, Urine Calcium Oxalate Cryst (Auto) LARGE, Urine Yeast-Like Cells (Auto) SMALLH, Urine Sperm (Auto) 01/10/21 13:00: POC Glucose (Misc Panel) 106H, POC Sodium (Misc Panel) 138, POC Potassium (Misc Panel) 3.1L, POC Chloride (Misc Panel) 97L, POC Total CO2 (Misc Panel) 33.0H, POC Blood Urea Nitrogen (Misc Panel 18, POC Ionized Calcium (Misc Panel) 4.3L, POC Creatinine (Misc Panel) 2.3H, POC Hematocrit (Misc Panel) 32.0L 01/10/21 14:34: Prothrombin Time 13.7, Prothromb Time International Ratio 1.03, Activated Partia l Thromboplast Time 39.5H, Ammonia < 10, Hepatitis A IgM Antibody NEGATIVE, Hepatitis B Surface Antigen NEGATIVE, Hepatitis B Core IgM Antibody NEGATIVE, Hepatitis C Antibody Index < 0.0 01/10/21 14:47: Coronavirus (COVID-19)(PCR) NEGATIVE, Influenza Type A (RT-PCR) NEGATIVE, Inf luenza Type B (RT-PCR) NEGATIVE, Respiratory Syncytial Virus (PCR) NEGATIVE CBC/BMP Laboratory Tests 01/10/21 12:33 Microbiology Microbiology 01/10/21 Urine Culture, Received Pending Assessment/Plan Patient is a 75 y/o F with PMH of chronic hypoxic respiratory failure (uses 2L at baseline), CAD s/p [place] (x3, x12 stents), Paroxysmal A. fib, Pacemaker / AICD (2012), Stroke (2014), Brain aneurysm (no intervention), Myasthenia Gravis , Parkinson diseases, Fibromyalgia, Depression, Anxiety, Spinal stenosis, Arthritis, Tremors and GERD who presented to [facility] with a generalized weakness and right upper abdominal pain. Patient stated that for past week she has been having increased generalized weakness associated with right upper quadrant pain. Patient states that she chronically takes acetaminophen up to 6 pills in a day due to left hip and left ankle pain. In emergency room patient was found to have no leukocytosis, hemoglobin 10.8, potassium 3.1, creatinine 2.3, AST 752, ALT 137, Alk phos 283. CT abdomen/pelvis showed Polycystic renal changes (left greater than right) without obvious acute perinephric stranding or hydroureteronephrosis. Calcifications along the path of the left ureter are likely phleboliths within the left gonadal vein and less likely ureteral calculi. No obvious acute abdominopelvic pathology otherwise appreciated. Specifically, no ascites, focal inflammatory stranding, adenopathy or free air. Problems (1) Generalized weakness Status: Acute Problem Text: Most likely multifactorial, could be attributed to deconditioning secondary to multiple comorbidities including progression of Parkinson's diseases, polypharmacy, fibromyalgia Unlikely associated with infectious etiology. Patient afebrile, no leukocytosis, normotensive. Unlikely, exacerbation of MG, pt does not extraocular, bulbar, proximal muscle weakness PT/OT evaluation (2) Acute on chronic renal failure Status: Acute Problem Text: Patient has a history of polycystic kidney diseases Creatinine elevated to 2.3 from baseline Cr 1.4-1.8 Torsemide to hold IV fluid Continue to monitor (3) Transaminitis Status: Acute Problem Text: We will check Tylenol level Hepatitis panel Dr Chandrala rec to start thiamine, folate, check CPK Appreciate/agree with GI consult (4) Chronic hypoxemic respiratory failure Status: Chronic Problem Text: Not in acute exacerbation Patient uses 2L at baseline Continue with inhaled therapy (5) Diastolic CHF Status: Chronic Problem Text: Not in acute exacerbation Torsemide on hold due to NALLELY Cardiac diet (6) Coronary artery disease Status: Chronic Problem Text: Patient denies any chest pain EKG did not show any acute ischemic changes Continue home cardioprotective medications (7) Parkinson's disease Status: Chronic Problem Text: Continue home meds (8) Fibromyalgia Status: Chronic Problem Text: Follow-up with PCP in the outpatient settings Plan / VTE VTE Prophylaxis Ordered?: Yes PATRICIA WARNER DO Jan 10, 2021 17:13
[2021-01-10] MEDS ORDERED: ALBUTEROL 90 MCG/ACT 8GM HFA INHALER INH PRN (17:30)
[2021-01-10] MEDS ORDERED: NITROGLYCERIN 0.4 MG SUBL TABLET SL PRN (17:30)
[2021-01-10] MEDS ORDERED: IPRATROPIUM 0.5MG/ALBUTEROL 2.5MG INH SOL UD 3ML (DUONEB) INH PRN (17:30)
[2021-01-10] MEDS ORDERED: THIAMINE 100 MG TAB PO ONE (17:30)
[2021-01-10] MEDS ORDERED: PILL CUTTER 1 EACH XX PRN (17:40)
[2021-01-10] MEDS ORDERED: BUPR1TAB52 PO (17:41)
[2021-01-10] MEDS ORDERED: COMMENTS (17:42)
[2021-01-10 18:01] LABS: ACETAMINOPHEN LEVEL 12.2 UG/ML (10.0-30.0); CPK CREATINE PHOSPHOKINASE 86 U/L (26-192)
[2021-01-10] MEDS: SINEMET 25-100 MG TAB PO SCH (19:00)
[2021-01-10 20:14] VITALS: BP 148/64
[2021-01-10] MEDS: HEPARIN SOD (PORCINE) 5000UNITS/ML 1ML VIAL/SYRINGE SC SCH (20:56)
[2021-01-10] MEDS: NS 1,000 ML IV SCH (20:56)
[2021-01-10] MEDS ORDERED: FOLIC ACID 1 MG TAB PO SCH (21:00)
[2021-01-10] MEDS ORDERED: GABAPENTIN 100 MG CAP PO SCH (21:00)
[2021-01-11 05:53] LABS: MEAN CORPUSCULAR HEMOGLOBIN 28.6 pg (27.0-33.0); MEAN CORPUSCULAR VOLUME 92.1 fl (80.0-96.0); PLATELET COUNT, AUTOMATED 146 10^3/uL (150-450); RED BLOOD COUNT 3.15 10^6/uL (4.00-5.40); WHITE BLOOD COUNT 5.8 10^3/uL (4.0-10.0)
[2021-01-11 06:00] VITALS: BP 103/55
[2021-01-11 06:19] LABS: ALBUMIN 2.5 GM/DL (3.2-5.2); BILIRUBIN,TOTAL 0.2 MG/DL (0.2-1.0); CALCIUM LEVEL 8.1 MG/DL (8.8-10.2); CREATININE FOR GFR 1.91 MG/DL (0.55-1.30); GLOMERULAR FILTRATION RATE 27.3 (>39); POTASSIUM SERUM 3.1 MEQ/L (3.5-5.1); TOTAL PROTEIN 5.5 GM/DL (6.4-8.2)
[2021-01-11] MEDS ORDERED: POTASSIUM CHLORIDE 10 MEQ SR TABLET PO ONE (07:40)
[2021-01-11] MEDS ORDERED: ASPIRIN 81MG ENTERIC TABLET PO SCH (09:00)
[2021-01-11] MEDS ORDERED: CYANOCOBALAMIN 500 MCG TAB PO SCH (09:00)
[2021-01-11] MEDS ORDERED: SERTRALINE 100 MG TAB PO SCH (09:00)
[2021-01-11] MEDS ORDERED: THIAMINE 100 MG TAB PO SCH (09:00)
[2021-01-11] MEDS ORDERED: clonazePAM 0.5 MG TAB PO PRN (09:00)
[2021-01-11] MEDS ORDERED: BISOPROLOL FUM 2.5 MG PER 1/2TAB PO SCH (09:00)
[2021-01-11] MEDS: SINEMET 25-100 MG TAB PO SCH ×3 (09:14→15:20)
[2021-01-11 09:15] VITALS: BP 169/71
[2021-01-11] MEDS: HEPARIN SOD (PORCINE) 5000UNITS/ML 1ML VIAL/SYRINGE SC SCH (09:15)
[2021-01-11] MEDS: NS 1,000 ML IV SCH (09:16)
[2021-01-11 14:00] VITALS: BP 109/56
[2021-01-11] MEDS ORDERED: CLON0.5T2 PO (15:00)
[2021-01-11] MEDS ORDERED: THIA100TA PO (15:00)
[2021-01-11] MEDS ORDERED: FOLI1TAB11 PO (15:00)
--- NOTE | 2021-01-11 17:37 | DS.PDOC ---
Discharge Summary General Date of Admission Jan 10, 2021 at 16:53 Date of Discharge 01/11/21 Discharge Summary PROCEDURES PERFORMED DURING STAY: [None]. ADMITTING DIAGNOSES: Generalized weakness Acute on chronic renal failure Transaminitis Chronic hypoxemic respiratory failure Diastolic CHF Coronary artery disease Parkinson's disease Fibromyalgia DISCHARGE DIAGNOSES: Generalized weakness Acute on chronic renal failure Transaminitis Chronic hypoxemic respiratory failure Diastolic CHF Coronary artery disease Parkinson's disease Fibromyalgia COMPLICATIONS/CHIEF COMPLAINT: Acute Or Chronic Renal Failure Transminitis. HISTORY OF PRESENT ILLNESS: Patient is a 75 y/o F with PMH of chronic hypoxic respiratory failure (uses 2L at baseline), CAD s/p [place] (x3, x12 stents), Paroxysmal A. fib, Pacemaker / AICD (2012), Stroke (2014), Brain aneurysm (no intervention), Myasthenia Gravis , Parkinson diseases, Fibromyalgia, Depression, Anxiety, Spinal stenosis, Arthritis, Tremors and GERD who presented to [facility] with a generalized weakness and right upper abdominal pain. Patient stated that for past week she has been having increased generalized weakness associated with right upper quadrant pain. Patient states that she chronically takes acetaminophen up to 6 pills in a day due to left hip and left ankle pain. In emergency room patient was found to have no leukocytosis, hemoglobin 10.8, potassium 3.1, creatinine 2.3, AST 752, ALT 137, Alk phos 283. CT abdomen/pelvis showed Polycystic renal changes (left greater than right) without obvious acute perinephric stranding or hydroureteronephrosis. Calcifications along the path of the left ureter are likely phleboliths within the left gonadal vein and less likely ureteral calculi. No obvious acute abdominopelvic pathology otherwise appreciated. Specifically, no ascites, focal inflammatory stranding, adenopathy or free air. HOSPITAL COURSE: During hospital stay the following issues addressed (1) Generalized weakness Most likely multifactorial, could be attributed to deconditioning secondary to multiple comorbidities including progression of Parkinson's diseases, polypharmacy, fibromyalgia Unlikely associated with infectious etiology. Patient afebrile, no leukocytosis, normotensive. Unlikely, exacerbation of MG, pt does not extraocular, bulbar, proximal muscle weakness PT/OT recommended transfer to ARU (2) Acute on chronic renal failure Patient has a history of polycystic kidney diseases Creatinine elevated to 2.3 from baseline Cr 1.4-1.8 on the admission, Improved after IV fluid Torsemide was on hold (3) Transaminitis Most likely secondary to polypharmacy Tylenol level wnl Hepatitis panel pending Dr Yani webb to start thiamine, folate, CPK wnl Transaminitis improved today (4) Chronic hypoxemic respiratory failure Not in acute exacerbation Patient uses 2L at baseline Continue with inhaled therapy (5) Diastolic CHF Not in acute exacerbation Torsemide on hold due to NALLELY Cardiac diet (6) Coronary artery disease Patient denies any chest pain EKG did not show any acute ischemic changes Continue home cardioprotective medications (7) Parkinson's disease Continue home meds (8) Fibromyalgia Follow-up with PCP in the outpatient settings DISCHARGE MEDICATIONS: Please see below. ALLERGIES: Please see below. PHYSICAL EXAMINATION ON DISCHARGE: VITAL SIGNS: Please see below. General Exam: Positive: Alert, Cooperative ENT Exam: Positive: Atraumatic Neck Exam: Positive: Supple Chest Exam: Positive: Diminished Heart Exam: Positive: Rate Normal Telemetry: Positive: No significant arrhythmia Abdomen Exam: Positive: Normal bowel sounds, Tenderness (mild right upper quadrant tenderness) Extremity Exam: Negative: Clubbing Skin Exam: Negative: Nl turgor and temperature Neuro Exam: Positive: Cranial Nerves 3-12 NL Psych Exam: Positive: Mental status NL LABORATORY DATA: Please see below. IMAGING: see above PROGNOSIS: fair ACTIVITY: [As tolerated]. DIET: cardiac DISPOSITION:ARU ITEMS TO FOLLOWUP ON ON OUTPATIENT: Follow-up with PCP in the outpatient DISCHARGE CONDITION: [Stable]. TIME SPENT ON DISCHARGE: 30 minutes. Vital Signs/I&Os Vital Signs Date Time Temp Pulse Resp B/P (MAP) Pulse Ox O2 Delivery O2 Flow Rate FiO2 01/11/21 14:00 96.7 55 20 109/56 (73) 97 Nasal Cannula 2.0 I&O- Last 24 Hours up to 6 AM 01/11/21 06:00 Intake Total 1370 ml Output Total 250 ml Balance 1120 ml Laboratory Data Labs 24H Laboratory Tests 2 01/11/21 05:23: Nucleated Red Blood Cells % (auto) 0.0, Anion Gap 3L, Glomerular Filtration Rate 27.3L, Calcium Level 8.1L, Magnesium Level 2.0, Total Bilirubin 0.2, Aspartate Amino Transf (AST/SGOT) 354H, Alanine Aminotransferase (ALT/SGPT) 102H, Alkaline Phosphatase 235H, Total Protein 5.5L, Albumin 2.5L, Albumin/Globulin Ratio 0.8L CBC/BMP Laboratory Tests 01/11/21 05:23 Microbiology Microbiology 01/10/21 Urine Culture - Final, Complete Discharge Medications Scheduled Aspirin (Aspirin EC) 81 Mg Tablet.dr, 81 MG PO DAILY, (Reported) Bisoprolol Fumarate (Bisoprolol Fumarate) 5 Mg Tablet, 2.5 MG PO DAILY, (Reported) Bupropion HCl (Bupropion HCl Sr) 100 Mg Tab.sr.12h, 100 MG PO DAILY, (Reported) Carbidopa/Levodopa (Carbidopa-Levodopa 25-100 Tab) 1 Each Tablet, 1 TAB PO QID, (Reported) 0900/1200/1500/1800 Cholecalciferol (Vitamin D3) (D3-50) 1,250 Mcg Capsule, 1,250 MCG PO QMONTH, (Reported) Cyanocobalamin (Vitamin B-12) (Vitamin B-12) 500 Mcg Tablet, 500 MCG PO DAILY, (Reported) Digoxin (Digoxin) 125 Mcg Tablet, 125 MCG PO 3XW, (Reported) SUN, SUN, SUN Folic Acid (Folic Acid) 1 Mg Tablet, 1 MG PO QHS Gabapentin (Gabapentin) 100 Mg Capsule, 200 MG PO QHS, (Reported) Omeprazole (Omeprazole) 40 Mg Capsule.dr, 40 MG PO DAILY, (Reported) Sertraline Hcl (Zoloft) 100 Mg Tablet, 100 MG PO DAILY, (Reported) Thiamine Hcl (Vitamin B-1) 100 Mg Tablet, 50 MG PO DAILY Torsemide (Torsemide) 20 Mg Tablet, 20 MG PO Q2D, (Reported) Scheduled PRN Albuterol Sulfate (Ventolin Hfa) 18 Gm Hfa.aer.ad, 2 PUFFS INH Q4H PRN for SOB/WHEEZING, (Reported) Clonazepam (Clonazepam) 0.5 Mg Tablet, 0.5 MG PO BID PRN for ANXIETY Epinephrine (Epinephrine) 0.3 Mg/0.3 Ml Auto.injct, 0.3 MG INJ PRN PRN for ALLERGIC REACTION, (Reported) Glycerin/Propylene Glycol (Artificial Tears Drops) 15 Ml Drops, 1 DROP OU QID PRN for DRY EYES, (Reported) Ipratropium/Albuterol Sulfate (Iprat-Albut 0.5-3(2.5) mg/3 ml) 3 Ml Ampul.neb, 1 HANSA INH QID PRN for SHORTNESS OF BREATH, (Reported) Lidocaine/Menthol (Icy Hot 4%-1% Patch) 1 Each Adh..patch, 1 PATCH TOP TID PRN for PAIN, (Reported) BACK/KNEE Menthol/Camphor (Freeze It Relief Gel) 113.4 Gm Gel..gram., 1 DOSE TOP BID PRN for SCIATIC PAIN, (Reported) APPLY TO RIGHT LEG AND BACK Nitroglycerin (Nitrostat) 0.4 Mg Tab.subl, 0.4 MG SL NITRO PRN for CHEST PAIN, (Reported) Miscellaneous Medications [Comments] , (Reported) USED PT'S DISCHARGE FROM [place] AND EXTERNAL MED HISTORY TO COMPILE MED REC Allergies Coded Allergies: bee venom protein (honey bee) (Verified Allergy, Severe, ANAPHYLAXIS, 11/17/20) strawberry (Verified Allergy, Severe, ANAPHYLAXIS, 11/17/20) caffeine (Verified Adverse Reaction, Intermediate, heart palpitations, 11/17/20) PATRICIA WARNER DO Jan 11, 2021 17:37
[2021-01-11] MEDS ORDERED: NITROGLYCERIN 0.4 MG SUBL TABLET SL PRN (18:35)
[2021-01-12] MEDS ORDERED: DIGOXIN 0.125 MG TAB PO SCH (09:00)
== END 2021-01-11 18:20 | DRG 683 ==
LOC: EDBD 12:16 → M ED 12:16 → M ED INP 16:53 → ENRESERV 19:13 → M MSPAV 20:14
PROVIDERS: ADMIT Internal Medicine; ATTEND Internal Medicine
DX: N17.9 Acute kidney failure, unspecified (principal); J96.11 Chronic respiratory failure with hypoxia; Q61.3 Polycystic kidney, unspecified; I50.32 Chronic diastolic (congestive) heart failure; I25.10 Atherosclerotic heart disease of native coronary artery without angina pectoris; I25.2 Old myocardial infarction; I48.0 Paroxysmal atrial fibrillation; G70.00 Myasthenia gravis without (acute) exacerbation; G20 Parkinson's disease; Z66 Do not resuscitate; M79.7 Fibromyalgia; F32.9 Major depressive disorder, single episode, unspecified; F41.9 Anxiety disorder, unspecified; R53.1 Weakness; R74.01 Elevation of levels of liver transaminase levels; K21.9 Gastro-esophageal reflux disease without esophagitis; Z79.82 Long term (current) use of aspirin; Z79.899 Other long term (current) drug therapy; Z91.030 Bee allergy status; Z91.018 Allergy to other foods; Z95.5 Presence of coronary angioplasty implant and graft; Z99.81 Dependence on supplemental oxygen; Z95.810 Presence of automatic (implantable) cardiac defibrillator; Z86.73 Personal history of transient ischemic attack (TIA), and cerebral infarction without residual deficits; Z98.1 Arthrodesis status; Z20.822 Contact with and (suspected) exposure to COVID-19

== ENCOUNTER 2021-01-11 14:14 | Inpatient (IN) | payer MEDICARE, MEDICAID ==
[~2021-01-11] VITALS: Ht 162.6 cm; Wt 64.9 kg
[~2021-01-11 14:14] MED LIST changes: +BUPR1TAB52 PO; +COMMENTS; +POTA20TA6 INH; +ZOLO100T PO
[2021-01-11] MEDS ORDERED: THIA100TA PO (15:00)
[2021-01-11] MEDS ORDERED: FOLI1TAB11 PO (15:00)
[2021-01-11] MEDS ORDERED: CLON0.5T2 PO (15:00)
[2021-01-11] MEDS ORDERED: NITROGLYCERIN 0.4 MG SUBL TABLET SL PRN (15:45)
[2021-01-11] MEDS: REMEDY PHYTOPLEX Z-GUARD PASTE 113GM TUBE (FROM STOREROOM PRODUCT) TOP SCH ×3 (16:00→20:24)
[2021-01-11 18:30] VITALS: BP 142/65
[2021-01-11] MEDS ORDERED: PILL CUTTER 1 EACH XX PRN (18:50)
[2021-01-11] MEDS: IPRATROPIUM 0.5MG/ALBUTEROL 2.5MG INH SOL UD 3ML (DUONEB) NEB SCH (20:00)
[2021-01-11] MEDS: clonazePAM 0.5 MG TAB PO PRN (20:19)
[2021-01-11] MEDS: SENNA 8.6 MG TAB (SENOKOT) PO SCH (20:19)
[2021-01-11] MEDS: GABAPENTIN 100 MG CAP PO SCH (20:19)
[2021-01-11] MEDS: HEPARIN SOD (PORCINE) 5000UNITS/ML 1ML VIAL/SYRINGE SC SCH (20:19)
[2021-01-11] MEDS: SINEMET 25-100 MG TAB PO SCH (20:19)
[2021-01-11] MEDS: FOLIC ACID 1 MG TAB PO SCH (20:19)
[2021-01-11] MEDS: DOCUSATE SODIUM 100MG CAPSULE PO SCH (20:20)
[2021-01-11] MEDS: POLYVINYL ALCOHOL OPHTH SOLN 15 ML(LIQUITEARS) OU SCH (20:21)
[2021-01-11 22:00] VITALS: BP 144/73
[2021-01-12 05:00] VITALS: BP 138/64
[2021-01-12 06:30] LABS: BASO % 0.4 % (0.0-1.0); EOS # 0.4 10^3/uL (0.0-0.5); EOS % 5.9 % (0.0-3.0); HEMATOCRIT 28.9 % (36.0-47.0); HEMOGLOBIN 8.8 g/dl (12.0-15.5); LYMPH # 1.8 10^3/uL (1.5-5.0); LYMPH % 25.1 % (24.0-44.0); MEAN CORPUSCULAR HEMOGLOBIN 28.8 pg (27.0-33.0); MEAN CORPUSCULAR HGB CONC 30.4 g/dl (32.0-36.5); MEAN CORPUSCULAR VOLUME 94.4 fl (80.0-96.0); MONO # 0.5 10^3/uL (0.0-0.8); MONO % 7.6 % (2.0-8.0); NEUTROPHILS # 4.3 10^3/uL (1.5-8.5); NEUTROPHILS % 60.4 % (36.0-66.0); PLATELET COUNT, AUTOMATED 142 10^3/uL (150-450); RED BLOOD COUNT 3.06 10^6/uL (4.00-5.40); WHITE BLOOD COUNT 7.1 10^3/uL (4.0-10.0)
[2021-01-12 07:01] LABS: ALBUMIN 2.4 GM/DL (3.2-5.2); BILIRUBIN,TOTAL 0.2 MG/DL (0.2-1.0); CALCIUM LEVEL 8.1 MG/DL (8.8-10.2); CREATININE FOR GFR 1.72 MG/DL (0.55-1.30); GLOMERULAR FILTRATION RATE 30.9 (>39); POTASSIUM SERUM 3.6 MEQ/L (3.5-5.1); TOTAL PROTEIN 5.4 GM/DL (6.4-8.2)
[2021-01-12] MEDS: IPRATROPIUM 0.5MG/ALBUTEROL 2.5MG INH SOL UD 3ML (DUONEB) NEB SCH ×3 (07:41→20:59)
[2021-01-12] MEDS: SINEMET 25-100 MG TAB PO SCH ×4 (08:54→20:24)
[2021-01-12] MEDS: SERTRALINE 100 MG TAB PO SCH (08:55)
[2021-01-12] MEDS: DIGOXIN 0.125 MG TAB PO SCH (08:55)
[2021-01-12] MEDS: OMEPRAZOLE 20 MG CAP PO SCH (08:55)
[2021-01-12] MEDS: DOCUSATE SODIUM 100MG CAPSULE PO SCH ×2 (08:55→20:25)
[2021-01-12] MEDS: ASPIRIN 81MG ENTERIC TABLET PO SCH (08:55)
[2021-01-12] MEDS: HEPARIN SOD (PORCINE) 5000UNITS/ML 1ML VIAL/SYRINGE SC SCH ×2 (08:55→20:24)
[2021-01-12] MEDS: THIAMINE 100 MG TAB PO SCH (08:55)
[2021-01-12] MEDS: POLYVINYL ALCOHOL OPHTH SOLN 15 ML(LIQUITEARS) OU SCH ×3 (08:56→20:26)
[2021-01-12] MEDS: BISOPROLOL FUM 2.5 MG PER 1/2TAB PO SCH (08:56)
[2021-01-12] MEDS: ACETAMINOPHEN TAB 650MG DOSE (2X325MG) PO PRN ×2 (08:56→20:29)
[2021-01-12] MEDS: CYANOCOBALAMIN 500 MCG TAB PO SCH (08:57)
[2021-01-12] MEDS: REMEDY PHYTOPLEX Z-GUARD PASTE 113GM TUBE (FROM STOREROOM PRODUCT) TOP SCH ×3 (08:57→20:25)
[2021-01-12] MEDS: clonazePAM 0.5 MG TAB PO PRN (09:04)
--- NOTE | 2021-01-12 13:52 | HPEPDOC ---
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 SOURCE OF ADMISSION INFORMATION:[facility] record and patient CHIEF COMPLAINT: parkinsons with worsening weakness in setting of NALLELY and transaminitis HISTORY OF PRESENT ILLNESS: 75F pmh CAD s/p TX x 3 with 12 stents, afib with PM/AICD, chronic diastolic CHF, stroke 2011, CKD with polycystic kidney disease, brain aneurysm, myasthenia gravis, parkinsons, spinal stenosis, tremors, fibromyalgia, chronic hypoxic respiratory failure on home , arthritis in multiple joints for which she takes many daily doses of Tylenol, who received the first Covid vaccine after which she developed full-body tremors/shakes for several days with worsening weakness and right upper quadrant pain and presented to [facility] ED on 01-10-21. She as found to have NALLELY and elevated liver enzymes. CT abdomen pelvis showed, "Polycystic renal changes (left greater than right) without obvious acute perinephric stranding or hydroureteronephrosis. Calcifications along the path of the left ureter are likely phleboliths within the left gonadal vein and less likely ureteral c alculi..No obvious acute abdominopelvic pathology otherwise appreciated. Specifically, no ascites, focal inflammatory stranding, adenopathy or free air." Her AST/ALT started to trend down, her diretics were held for NALLELY. She was weak and found to have impairments in mobility and ADLs, deemed medically appropriate for discharge to ARU on 01-11-21. REVIEW OF SYSTEMS: The following is a completed review of systems and has been reviewed. Review of systems otherwise unremarkable. PAIN: Patient self reports no pain EYES: No recent vision changes EARS, NOSE, & THROAT: No throat pain, or dysphagia, or rhinorrhea CARDIOVASCULAR: Denies chest pain or palpitations PULMONARY: Denies shortness of breath GASTROINTESTINAL: Denies constipation/diarrhea,. GENITOURINARY: denies dysuria MUSCULOSKELETAL: generalized weakness NEUROLOGICAL:+tremor HEMATOLOGICAL: denies easy bruising SKIN: denies rash PSYCHIATRIC: Unremarkable All other review of systems found to be negative. PAST MEDICAL HISTORY: as per HPI PAST SURGICAL HISTORY: As per HPI plus Hysterectomy, cholecystectomy, cystocele/rectocele repair, left arm surgery, spinal fusion, right shoulder blade tumor removal, T&A ALLERGIES: Please see below. MEDICATIONS: Please see below. FAMILY HISTORY: cancer SOCIAL HISTORY: no etoh/illicit drugs/smoking DIET: 2 gram low sodium PHYSICAL EXAMINATION: VITAL SIGNS: Please see below. GENERAL: Pleasant and cooperative. No acute distress. HEENT: PERRL. Extraocular movements intact. Clear conjunctiva CARDIOVASCULAR: Regular rate and rhythm. No murmurs, rubs, or gallops LUNGS: Clear to auscultation bilaterally. No wheezes. No rhonchi ABDOMEN: Soft, mildly ttp RUQ, no rebound tenderness, nondistended. Normal active bowel sounds NEUROLOGICAL: Alert and oriented times three. Cranial nerves II through XII grossly intact. Sensation grossly intact +LUE tremor EXTREMITIES: 4+\\5 strength bilateral upper extremities. 4+\\5 strength right lower extremity. 4+/5 strength in left lower extremity. LABORATORY DATA: Please see below. IMAGING:Imaging documentation personally reviewed by record FUNCTIONAL STATUS: Premorbid: Modified Independent with all activities of daily life as well as mobility On Admission: min-mod assist for bed mobility, functional transfers, dressing, toileting, ambulation. GOALS: mod-I for bed mobility, functional transfers, dressing, toileting, ambulation. ASSESSMENT:75-year-old F with past medical history of parkinsons, cva who presents status post worsening weakness in setting of NALLELY and transaminitis PLAN: 1. 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 Neuro- hx of parkinsons with worsening weakness, c/u sinemet -hx of CVA c/u asa and statin for secondary prevention -fibromyalgia- c/u gabapentin -hx of myasthenia gravis 3. cardiac- hx of CAD and paroxysmal Afb s/p stenting and PM/AICD- c/u ASA and beta-yadiel- medicine consulted to assist in overal management -diastolic CHF- fluid retrict, diuretic, daily weights, monitor kidney function -paroxysmal Afib on digoxin and beta-yadiel, not on AC 4. Resp- chronic hypoxic respiratory failure- Duonebs and 02 5. GI- tranasminitis likely due to chronic tylenol use- resolving, c/u to monitor -f/u GI, c/u thamine, folic acid, b12 supplement recommended by GI -prilosc for ppx 6. Renal- CKD in setting of polycystic kidney disease, monitor for NALELLY 7. Psych- depression c/u zoloft -anxiety- c/u klonipin 8. Pain- judicious tylenol use 9. DVT ppx- heparin 10. Dispo- tbd POST ADMISSION PHYSICIAN EVALUATION: Medical and functional status: Description of medical status, medical assessment: As above. Rehabilitation diagnosis and current and prior cold morbid medical conditions as above. Risk of complications and plans to mitigate them as above. Description of functional status current status is as above. Prior status as above. Status compared to preadmission: There are no clinically significant differences between the patient's current status and the information described on the preadmission screening document. Treatment plan anticipated: Treatment plan is as described above. Required disciplines including physical therapy, occupational therapy, others as noted above Intensity of services: 3 hours a day,6 days a week. Special considerations: There are no specific special or safety considerations that would likely preclude immediate implementation of an intensive rehabilitat ion program or subsequently influence the plan of care. ATTESTATION: Considering all the information above, it is my best judgment that this patient requires intensive rehabilitation therapy as described above and an inpatient hospital environment due to the complexity of nursing, medical, and rehabilitation needs required by the patient. Furthermore, this patient can reasonably be expected to participate in an benefit from an inpatient rehabilitation stay with an interdisciplinary team approach to the delivery of rehabilitation care under the direction and supervision of rehabilitation physi marko PROGNOSIS: Excellent ESTIMATED LENGTH OF STAY:10-14 days. PROJECTED DISCHARGE DESTINATION: Home with family support and any durable medical equipment required to increase functional safety and mobility TIME SPENT COUNSELING AND COORDINATING INITIAL CARE: Greater than 70 minutes. Vital Signs Vital Sign - Last 24 Hours 01/11/21 01/11/21 01/11/21 01/12/21 18:30 20:00 22:00 05:00 Temp 98.5 97.8 Pulse 57 59 57 Resp 18 18 18 B/P (MAP) 142/65 (90) 144/73 (96) 138/64 (88) Pulse Ox 95 96 99 O2 Delivery Nasal Cannula Nasal Cannula Nasal Cannula O2 Flow Rate 2.0 2.0 2.0 2.0 01/12/21 01/12/21 01/12/21 08:55 08:55 08:56 Pulse 64 64 B/P (MAP) 153/66 O2 Flow Rate 2.0 Laboratory Data CBC/BMP Laboratory Tests 01/12/21 05:58 Labs 24H Laboratory Tests 2 01/12/21 05:58: Immature Granulocyte % (Auto) 0.6, Neutrophils (%) (Auto) 60.4, Lymphocytes (%) (Auto) 25.1, Monocytes (%) (Auto) 7.6, Eosinophils (%) (Auto) 5.9H, Basophils (%) (Auto) 0.4, Neutrophils # (Auto) 4.3, Lymphocytes # (Auto) 1.8, Monocytes # (Auto) 0.5, Eosinophils # (Auto) 0.4, Basophils # (Auto) 0.0, Nucleated Red Blood Cells % (auto) 0.0, Anion Gap 2L, Glomerular Filtration Rate 30.9L, Calcium Level 8.1L, Total Bilirubin 0.2, Aspartate Amino Transf (AST/SGOT) 153H, Alanine Aminotransferase (ALT/SGPT) 70, Alkaline Phosphatase 208H, Total Protein 5.4L, Albumin 2.4L, Albumin/Globulin Ratio 0.8L Home Medications Scheduled Aspirin (Aspirin EC) 81 Mg Tablet.dr, 81 MG PO DAILY, (Reported) Bisoprolol Fumarate (Bisoprolol Fumarate) 5 Mg Tablet, 2.5 MG PO DAILY, (Reported) Bupropion HCl (Bupropion HCl Sr) 100 Mg Tab.sr.12h, 100 MG PO DAILY, (Reported) Carbidopa/Levodopa (Carbidopa-Levodopa 25-100 Tab) 1 Each Tablet, 1 TAB PO QID, (Reported) 0900/1200/1500/1800 Cholecalciferol (Vitamin D3) (D3-50) 1,250 Mcg Capsule, 1,250 MCG PO QMONTH, (Reported) Cyanocobalamin (Vitamin B-12) (Vitamin B-12) 500 Mcg Tablet, 500 MCG PO DAILY, (Reported) Digoxin (Digoxin) 125 Mcg Tablet, 125 MCG PO 3XW, (Reported) MON, WED, FRI Folic Acid (Folic Acid) 1 Mg Tablet, 1 MG PO QHS Gabapentin (Gabapentin) 100 Mg Capsule, 200 MG PO QHS, (Reported) Omeprazole (Omeprazole) 40 Mg Capsule.dr, 40 MG PO DAILY, (Reported) Sertraline Hcl (Zoloft) 100 Mg Tablet, 100 MG PO DAILY, (Reported) Thiamine Hcl (Vitamin B-1) 100 Mg Tablet, 50 MG PO DAILY Torsemide (Torsemide) 20 Mg Tablet, 20 MG PO Q2D, (Reported) Scheduled PRN Albuterol Sulfate (Ventolin Hfa) 18 Gm Hfa.aer.ad, 2 PUFFS INH Q4H PRN for SOB/WHEEZING, (Reported) Clonazepam (Clonazepam) 0.5 Mg Tablet, 0.5 MG PO BID PRN for ANXIETY Epinephrine (Epinephrine) 0.3 Mg/0.3 Ml Auto.injct, 0.3 MG INJ PRN PRN for ALLERGIC REACTION, (Reported) Glycerin/Propylene Glycol (Artificial Tears Drops) 15 Ml Drops, 1 DROP OU QID PRN for DRY EYES, (Reported) Ipratropium/Albuterol Sulfate (Iprat-Albut 0.5-3(2.5) mg/3 ml) 3 Ml Ampul.neb, 1 HANSA INH QID PRN for SHORTNESS OF BREATH, (Reported) Lidocaine/Menthol (Icy Hot 4%-1% Patch) 1 Each Adh..patch, 1 PATCH TOP TID PRN for PAIN, (Reported) BACK/KNEE Menthol/Camphor (Freeze It Relief Gel) 113.4 Gm Gel..gram., 1 DOSE TOP BID PRN for SCIATIC PAIN, (Reported) APPLY TO RIGHT LEG AND BACK Nitroglycerin (Nitrostat) 0.4 Mg Tab.subl, 0.4 MG SL NITRO PRN for CHEST PAIN, (Reported) Allergies Coded Allergies: bee venom protein (honey bee) (Verified Allergy, Severe, ANAPHYLAXIS, 11/17/20) strawberry (Verified Allergy, Severe, ANAPHYLAXIS, 11/17/20) caffeine (Verified Adverse Reaction, Intermediate, heart palpitations, 11/17/20) A-FIB/CHADSVASC A-FIB History Current/History of A-Fib/PAF?: Yes Current PO Anticoag Therapy: No SHANIKA KUMARI MD Jan 12, 2021 13:52
[2021-01-12 14:00] VITALS: BP 113/57
[2021-01-12] MEDS: clonazePAM 0.5 MG TAB PO SCH ×2 (15:39→20:24)
--- NOTE | 2021-01-12 16:05 | IPNPDOC ---
Text Note Date of Service The patient was seen on 01/12/21. NOTE Subjective: No any acute events overnight. Patient denied fever, chills, nausea, vomiting. She stated that right upper quadrant pain resolved Objective: GENERAL APPEARANCE: NAD HEENT: no scleral icterus, no JVD, EOMI CARDIOVASCULAR: S1S2 LUNGS: Diminished lung sounds bilaterally ABDOMEN: soft & not tender w palpitation MUSCULOSKELETAL: no cyanosis, no swelling INTEGUMENT: no generalized pallor NEUROLOGICAL: cranial nerve function from 2-12 intact intact, follows commands, speech not dysarthric Assessment and plan Patient is 75 years old female with past medical history of chronic hypoxic respiratory failure (uses 2L at baseline), CAD s/p TX (x3, x12 stents), Paroxysmal A. fib, Pacemaker / AICD (2012), Stroke (2014), Brain aneurysm (no intervention), Myasthenia Gravis , Parkinson diseases, Fibromyalgia, Depression, Anxiety, Spinal stenosis, Arthritis, Tremors and GERD who presented to [facility] with a generalized weakness and right upper abdominal pain. During the hospital stay transaminitis improved, patient was transferred to acute rehabilitation unit for further treatment. (1) Generalized weakness Improved Continue PT/OT (2) CKD 3 Kidney function close to her baseline (3) Transaminitis Most likely secondary to polypharmacy Improved Follow-up with electrical design engineer in the outpatient settings (4) Chronic hypoxemic respiratory failure Not in acute exacerbation Patient uses 2L at baseline Continue with inhaled therapy (5) Diastolic CHF Not in acute exacerbation Torsemide on hold for now until kidney function is on the baseline Cardiac diet (6) Coronary artery disease Patient denies any chest pain Continue home cardioprotective medications (7) Parkinson's disease Continue home meds (8) Fibromyalgia Follow-up with PCP in the outpatient settings VS,Fishbone, I+O VS, Fishbone, I+O Laboratory Tests 01/12/21 05:58 Vital Signs Date Time Temp Pulse Resp B/P (MAP) Pulse Ox O2 Delivery O2 Flow Rate FiO2 01/12/21 14:00 98.4 57 18 113/57 (75) 98 Nasal Cannula 2.0 I&O- Last 24 Hours up to 6 AM 01/12/21 06:00 Intake Total 0 ml Balance 0 ml PATRICIA WARNER DO Jan 12, 2021 16:05
[2021-01-12 20:00] VITALS: BP 152/71
[2021-01-12] MEDS: FOLIC ACID 1 MG TAB PO SCH (20:25)
[2021-01-12] MEDS: SENNA 8.6 MG TAB (SENOKOT) PO SCH (20:25)
[2021-01-12] MEDS: GABAPENTIN 100 MG CAP PO SCH (20:25)
[2021-01-13 06:00] VITALS: BP 137/64
[2021-01-13] MEDS: IPRATROPIUM 0.5MG/ALBUTEROL 2.5MG INH SOL UD 3ML (DUONEB) NEB SCH ×3 (07:25→20:42)
[2021-01-13] MEDS: DOCUSATE SODIUM 100MG CAPSULE PO SCH (09:00)
[2021-01-13] MEDS: OMEPRAZOLE 20 MG CAP PO SCH (09:26)
[2021-01-13] MEDS: REMEDY PHYTOPLEX Z-GUARD PASTE 113GM TUBE (FROM STOREROOM PRODUCT) TOP SCH ×3 (09:26→20:56)
[2021-01-13] MEDS: ASPIRIN 81MG ENTERIC TABLET PO SCH (09:27)
[2021-01-13] MEDS: CYANOCOBALAMIN 500 MCG TAB PO SCH (09:28)
[2021-01-13] MEDS: HEPARIN SOD (PORCINE) 5000UNITS/ML 1ML VIAL/SYRINGE SC SCH ×2 (09:28→20:55)
[2021-01-13] MEDS: clonazePAM 0.5 MG TAB PO SCH ×3 (09:28→20:54)
[2021-01-13] MEDS: SINEMET 25-100 MG TAB PO SCH ×3 (09:29→20:55)
[2021-01-13] MEDS: SERTRALINE 100 MG TAB PO SCH (09:29)
[2021-01-13] MEDS: THIAMINE 100 MG TAB PO SCH (09:29)
[2021-01-13] MEDS: POLYVINYL ALCOHOL OPHTH SOLN 15 ML(LIQUITEARS) OU SCH ×3 (09:29→20:56)
[2021-01-13] MEDS: BISOPROLOL FUM 2.5 MG PER 1/2TAB PO SCH (09:33)
[2021-01-13 14:00] VITALS: BP 129/60
[2021-01-13] MEDS: LOPERAMIDE 2 MG CAPLET PO PRN (15:51)
[2021-01-13 20:20] VITALS: BP 150/71
[2021-01-13 20:42] VITALS: O2SAT 98
[2021-01-13] MEDS: FOLIC ACID 1 MG TAB PO SCH (20:54)
[2021-01-13] MEDS: GABAPENTIN 100 MG CAP PO SCH (20:54)
[2021-01-13] MEDS: ACETAMINOPHEN TAB 650MG DOSE (2X325MG) PO PRN (20:55)
[2021-01-13] MEDS ORDERED: SENNA 8.6 MG TAB (SENOKOT) PO PRN (21:00)
[2021-01-13] MEDS ORDERED: DOCUSATE SODIUM 100MG CAPSULE PO PRN (21:00)
[2021-01-14 06:00] VITALS: BP 139/65
[2021-01-14 06:09] LABS: BASO % 0.6 % (0.0-1.0); EOS # 0.4 10^3/uL (0.0-0.5); EOS % 6.3 % (0.0-3.0); HEMOGLOBIN 9.5 g/dl (12.0-15.5); LYMPH # 2.6 10^3/uL (1.5-5.0); LYMPH % 37.7 % (24.0-44.0); MEAN CORPUSCULAR HEMOGLOBIN 29.1 pg (27.0-33.0); MEAN CORPUSCULAR HGB CONC 30.6 g/dl (32.0-36.5); MEAN CORPUSCULAR VOLUME 94.8 fl (80.0-96.0); MONO # 0.6 10^3/uL (0.0-0.8); MONO % 8.5 % (2.0-8.0); NEUTROPHILS # 3.1 10^3/uL (1.5-8.5); NEUTROPHILS % 46.2 % (36.0-66.0); PLATELET COUNT, AUTOMATED 139 10^3/uL (150-450); RED BLOOD COUNT 3.27 10^6/uL (4.00-5.40); WHITE BLOOD COUNT 6.8 10^3/uL (4.0-10.0)
[2021-01-14] MEDS: IPRATROPIUM 0.5MG/ALBUTEROL 2.5MG INH SOL UD 3ML (DUONEB) NEB SCH ×2 (07:30→18:33)
[2021-01-14] MEDS: HEPARIN SOD (PORCINE) 5000UNITS/ML 1ML VIAL/SYRINGE SC SCH ×2 (08:20→20:26)
[2021-01-14] MEDS: CYANOCOBALAMIN 500 MCG TAB PO SCH (08:21)
[2021-01-14] MEDS: THIAMINE 100 MG TAB PO SCH (08:21)
[2021-01-14] MEDS: clonazePAM 0.5 MG TAB PO SCH ×3 (08:33→20:27)
[2021-01-14] MEDS: ASPIRIN 81MG ENTERIC TABLET PO SCH (08:33)
[2021-01-14] MEDS: SERTRALINE 100 MG TAB PO SCH (08:33)
[2021-01-14] MEDS: BISOPROLOL FUM 2.5 MG PER 1/2TAB PO SCH (08:33)
[2021-01-14] MEDS: DIGOXIN 0.125 MG TAB PO SCH (08:34)
[2021-01-14] MEDS: SINEMET 25-100 MG TAB PO SCH ×4 (08:34→20:27)
[2021-01-14] MEDS: OMEPRAZOLE 20 MG CAP PO SCH (08:34)
[2021-01-14] MEDS: REMEDY PHYTOPLEX Z-GUARD PASTE 113GM TUBE (FROM STOREROOM PRODUCT) TOP SCH ×3 (08:35→20:27)
[2021-01-14] MEDS: POLYVINYL ALCOHOL OPHTH SOLN 15 ML(LIQUITEARS) OU SCH ×3 (08:35→20:27)
[2021-01-14 09:32] LABS: CALCIUM LEVEL 8.3 MG/DL (8.8-10.2); CREATININE FOR GFR 1.53 MG/DL (0.55-1.30); GLOMERULAR FILTRATION RATE 35.3 (>39); POTASSIUM SERUM 3.7 MEQ/L (3.5-5.1)
[2021-01-14 14:00] VITALS: BP 124/99
[2021-01-14] MEDS: LOPERAMIDE 2 MG CAPLET PO PRN (15:36)
[2021-01-14] MEDS: ACETAMINOPHEN TAB 650MG DOSE (2X325MG) PO PRN ×2 (15:37→20:26)
[2021-01-14 20:00] VITALS: BP 167/72
[2021-01-14] MEDS: FOLIC ACID 1 MG TAB PO SCH (20:27)
[2021-01-14] MEDS: GABAPENTIN 100 MG CAP PO SCH (20:27)
[2021-01-15 05:21] VITALS: BP 97/55
[2021-01-15] MEDS: BISOPROLOL FUM 2.5 MG PER 1/2TAB PO SCH (07:37)
[2021-01-15] MEDS: SERTRALINE 100 MG TAB PO SCH (07:45)
[2021-01-15] MEDS: ASPIRIN 81MG ENTERIC TABLET PO SCH (07:46)
[2021-01-15] MEDS: OMEPRAZOLE 20 MG CAP PO SCH (07:46)
[2021-01-15] MEDS: SINEMET 25-100 MG TAB PO SCH ×4 (07:46→20:29)
[2021-01-15] MEDS: clonazePAM 0.5 MG TAB PO SCH ×3 (07:46→20:29)
[2021-01-15] MEDS: THIAMINE 100 MG TAB PO SCH (07:46)
[2021-01-15] MEDS: CYANOCOBALAMIN 500 MCG TAB PO SCH (07:46)
[2021-01-15] MEDS: POLYVINYL ALCOHOL OPHTH SOLN 15 ML(LIQUITEARS) OU SCH ×3 (07:47→20:31)
[2021-01-15] MEDS: REMEDY PHYTOPLEX Z-GUARD PASTE 113GM TUBE (FROM STOREROOM PRODUCT) TOP SCH ×3 (07:47→20:30)
[2021-01-15] MEDS: HEPARIN SOD (PORCINE) 5000UNITS/ML 1ML VIAL/SYRINGE SC SCH ×2 (07:47→20:30)
[2021-01-15] MEDS: IPRATROPIUM 0.5MG/ALBUTEROL 2.5MG INH SOL UD 3ML (DUONEB) NEB SCH ×3 (08:00→19:51)
[2021-01-15 14:00] VITALS: BP 138/70
[2021-01-15 19:51] VITALS: O2SAT 98
[2021-01-15 20:00] VITALS: BP 158/66
[2021-01-15] MEDS: GABAPENTIN 100 MG CAP PO SCH (20:29)
[2021-01-15] MEDS: FOLIC ACID 1 MG TAB PO SCH (20:29)
[2021-01-15] MEDS: ACETAMINOPHEN TAB 650MG DOSE (2X325MG) PO PRN (20:30)
[2021-01-16 05:23] VITALS: BP 99/54
[2021-01-16] MEDS: BISOPROLOL FUM 2.5 MG PER 1/2TAB PO SCH (08:03)
[2021-01-16] MEDS: SINEMET 25-100 MG TAB PO SCH ×4 (08:50→20:18)
[2021-01-16] MEDS: clonazePAM 0.5 MG TAB PO SCH ×3 (08:50→20:18)
[2021-01-16] MEDS: THIAMINE 100 MG TAB PO SCH (08:50)
[2021-01-16] MEDS: POLYVINYL ALCOHOL OPHTH SOLN 15 ML(LIQUITEARS) OU SCH ×3 (08:51→20:19)
[2021-01-16] MEDS: OMEPRAZOLE 20 MG CAP PO SCH (08:51)
[2021-01-16] MEDS: ASPIRIN 81MG ENTERIC TABLET PO SCH (08:51)
[2021-01-16] MEDS: HEPARIN SOD (PORCINE) 5000UNITS/ML 1ML VIAL/SYRINGE SC SCH ×2 (08:51→20:18)
[2021-01-16] MEDS: SERTRALINE 100 MG TAB PO SCH (08:51)
[2021-01-16] MEDS: CYANOCOBALAMIN 500 MCG TAB PO SCH (08:51)
[2021-01-16] MEDS: IPRATROPIUM 0.5MG/ALBUTEROL 2.5MG INH SOL UD 3ML (DUONEB) NEB SCH ×3 (08:52→20:08)
[2021-01-16] MEDS: REMEDY PHYTOPLEX Z-GUARD PASTE 113GM TUBE (FROM STOREROOM PRODUCT) TOP SCH ×3 (09:00→20:19)
[2021-01-16] MEDS: ACETAMINOPHEN TAB 650MG DOSE (2X325MG) PO PRN ×2 (11:43→20:18)
[2021-01-16 14:00] VITALS: BP 94/55
[2021-01-16 20:00] VITALS: BP 142/70
[2021-01-16] MEDS: GABAPENTIN 100 MG CAP PO SCH (20:17)
[2021-01-16] MEDS: FOLIC ACID 1 MG TAB PO SCH (20:18)
--- NOTE | 2021-01-16 22:30 | IPNPDOC ---
PM&R Progress Note DATE OF SERVICE: Jan 13, 2021 Double End Production Grinder Progress Note SUbjective: Patient reporting she is having loose stools and would like to try some immodium. REVIEW OF SYSTEMS: The following is a completed review of systems and has been reviewed. Review of systems otherwise unremarkable. PAIN: Patient self reports no pain EYES: No recent vision changes EARS, NOSE, & THROAT: No throat pain, or dysphagia, or rhinorrhea CARDIOVASCULAR: Denies chest pain or palpitations PULMONARY: Denies shortness of breath GASTROINTESTINAL: +loose stool GENITOURINARY: denies dysuria MUSCULOSKELETAL: generalized weakness NEUROLOGICAL:+tremor HEMATOLOGICAL: denies easy bruising SKIN: denies rash PSYCHIATRIC: Unremarkable All other review of systems found to be negative. PHYSICAL EXAMINATION: VITAL SIGNS: Please see below. GENERAL: Pleasant and cooperative. No acute distress. HEENT: PERRL. Extraocular movements intact. Clear conjunctiva CARDIOVASCULAR: Regular rate and rhythm. No murmurs, rubs, or gallops LUNGS: Clear to auscultation bilaterally. No wheezes. No rhonchi ABDOMEN: Soft, mildly ttp RUQ, no rebound tenderness, nondistended. Normal active bowel sounds NEUROLOGICAL: Alert and oriented times three. Cranial nerves II through XII grossly intact. Sensation grossly intact +LUE tremor EXTREMITIES: 4+\5 strength bilateral upper extremities. 4+\5 strength right lower extremity. 4+/5 strength in left lower extremity. ASSESSMENT:75-year-old F with past medical history of parkinsons, cva who presents status post worsening weakness in setting of NALLELY and transaminitis PLAN: 1. 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 Neuro- hx of parkinsons with worsening weakness, c/u sinemet -hx of CVA c/u asa and statin for secondary prevention -fibromyalgia- c/u gabapentin -hx of myasthenia gravis 3. cardiac- hx of CAD and paroxysmal Afb s/p stenting and PM/AICD- c/u ASA and beta-yadiel- medicine consulted to assist in overal management -diastolic CHF- fluid retrict, diuretic, daily weights, monitor kidney function -paroxysmal Afib on digoxin and beta-yadiel, not on AC 4. Resp- chronic hypoxic respiratory failure- Duonebs and 02 5. GI- transaminitis likely due to chronic tylenol use- resolving, c/u to monitor -f/u GI, c/u thamine, folic acid, b12 supplement recommended by GI -prilosc for ppx -immodium orn for loose stools 6. Renal- CKD in setting of polycystic kidney disease, monitor for NALLELY 7. Psych- depression c/u zoloft -anxiety- c/u klonipin 8. Pain- judicious tylenol use 9. DVT ppx- heparin 10. Ortho- f/u with ortho for knee OA-patient not complaining of pain in knee presently 11. Dispo- tbd Allergies Coded Allergies: bee venom protein (honey bee) (Verified Allergy, Severe, ANAPHYLAXIS, 11/17/20) strawberry (Verified Allergy, Severe, ANAPHYLAXIS, 11/17/20) caffeine (Verified Adverse Reaction, Intermediate, heart palpitations, 11/17/20) Vital Signs Vital Signs Date Time Temp Pulse Resp B/P (MAP) Pulse Ox O2 Delivery O2 Flow Rate FiO2 01/16/21 20:09 Nasal Cannula 2.0 01/16/21 14:00 97.8 68 18 94/55 (68) 98 01/15/21 19:51 24 Current Medications Current Medications Current Medications Medications (Trade) Dose Ordered Sig/Jorden Route PRN Reason Start Time Stop Time Status Last Admin Dose Admin Acetaminophen (Tylenol Tab) 650 mg Q4HP PRN PO fever/MILD PAIN (PS 1-4) 01/11/21 15:45 01/16/21 20:18 Albuterol/ Ipratropium (Duoneb (Ipr 0.5mg/Alb 2.5mg)) 3 ml RTID NEB 01/11/21 20:00 01/16/21 20:08 Artificial Tears (Akwa Tears) 2 drop TID OU 01/11/21 21:00 01/16/21 20:19 Aspirin (Ecotrin) 81 mg DAILY PO 01/12/21 09:00 01/16/21 08:51 Bisoprolol Fumarate (Zebeta) 2.5 mg DAILY PO 01/12/21 09:00 01/14/21 08:33 Carbidopa/Levodopa (Sinemet 25/100) 1 tab 0900,1200,1500,1800 PO 01/11/21 18:00 01/12/21 15:59 DC 01/12/21 14:54 Carbidopa/Levodopa (Sinemet 25/100) 1 tab 0900,1200,1500,2100 PO 01/12/21 21:00 01/13/21 13:53 DC 01/13/21 09:29 Carbidopa/Levodopa (Sinemet 25/100) 1 tab BID@1500,2100 PO 01/13/21 15:00 01/16/21 20:18 Carbidopa/Levodopa (Sinemet 25/100) 1.5 tab BID@0900,1200 PO 01/14/21 09:00 01/16/21 11:43 Clonazepam (KlonoPIN) 0.5 mg BID PRN PO ANXIETY 01/11/21 15:45 01/12/21 15:06 DC 01/12/21 09:04 Clonazepam (KlonoPIN) 0.5 mg TID PO 01/12/21 16:00 01/16/21 20:18 Cyanocobalamin (Vitamin B12) 500 mcg DAILY PO 01/12/21 09:00 01/16/21 08:51 Digoxin (Lanoxin) 0.125 mg MoWeFr@0900 PO 01/12/21 09:00 01/14/21 08:34 Docusate Sodium (Colace) 100 mg BID PO 01/11/21 21:00 01/13/21 13:53 DC 01/12/21 20:25 Docusate Sodium (Colace) 100 mg BID PRN PO constipation 01/13/21 21:00 Folic Acid (Folic Acid) 1 mg QHS PO 01/11/21 21:00 01/16/21 20:18 Gabapentin (Neurontin) 200 mg QHS PO 01/11/21 21:00 01/16/21 20:17 Heparin Sodium (Porcine) (Heparin) 5,000 units Q12H SC 01/11/21 21:00 01/16/21 20:18 Home Med (Med Rec Complete!) ASDIRECTED XX 01/11/21 18:35 01/11/21 18:35 DC Loperamide HCl (Imodium) 2 mg ASDIRECTED PRN PO DIARRHEA 01/13/21 13:50 01/14/21 15:36 Nitroglycerin (Nitrostat (1/ 150)) 0.4 mg Q5MP PRN SL CHEST PAIN 01/11/21 15:45 Omeprazole (PriLOSEC) 40 mg DAILY PO 01/12/21 09:00 01/16/21 08:51 Senna (Senokot) 1 tab QHS PO 01/11/21 21:00 01/13/21 13:53 DC 01/12/21 20:25 Senna (Senokot) 1 tab QHS PRN PO constipation 01/13/21 21:00 Sertraline HCl (Zoloft) 100 mg DAILY PO 01/12/21 09:00 01/16/21 08:51 Thiamine HCl (Thiamine HCl) 50 mg DAILY PO 01/12/21 09:00 01/16/21 08:50 SHANIKA KUMARI MD Jan 16, 2021 22:30
[2021-01-17 06:00] VITALS: BP 103/54
[2021-01-17 06:37] LABS: BASO % 0.3 % (0.0-1.0); EOS # 0.5 10^3/uL (0.0-0.5); EOS % 7.6 % (0.0-3.0); HEMATOCRIT 27.6 % (36.0-47.0); HEMOGLOBIN 8.5 g/dl (12.0-15.5); LYMPH # 2.2 10^3/uL (1.5-5.0); LYMPH % 34.1 % (24.0-44.0); MEAN CORPUSCULAR HEMOGLOBIN 29.2 pg (27.0-33.0); MEAN CORPUSCULAR HGB CONC 30.8 g/dl (32.0-36.5); MEAN CORPUSCULAR VOLUME 94.8 fl (80.0-96.0); MONO # 0.6 10^3/uL (0.0-0.8); NEUTROPHILS # 3.1 10^3/uL (1.5-8.5); NEUTROPHILS % 47.9 % (36.0-66.0); PLATELET COUNT, AUTOMATED 164 10^3/uL (150-450); RED BLOOD COUNT 2.91 10^6/uL (4.00-5.40); WHITE BLOOD COUNT 6.4 10^3/uL (4.0-10.0)
[2021-01-17 07:05] LABS: CALCIUM LEVEL 8.1 MG/DL (8.8-10.2); CREATININE FOR GFR 1.51 MG/DL (0.55-1.30); GLOMERULAR FILTRATION RATE 35.9 (>39); POTASSIUM SERUM 4.1 MEQ/L (3.5-5.1)
[2021-01-17] MEDS: ACETAMINOPHEN TAB 650MG DOSE (2X325MG) PO PRN ×3 (07:05→20:39)
[2021-01-17] MEDS: IPRATROPIUM 0.5MG/ALBUTEROL 2.5MG INH SOL UD 3ML (DUONEB) NEB SCH ×3 (07:30→19:40)
[2021-01-17] MEDS: HEPARIN SOD (PORCINE) 5000UNITS/ML 1ML VIAL/SYRINGE SC SCH ×2 (08:47→20:37)
[2021-01-17] MEDS: SINEMET 25-100 MG TAB PO SCH ×4 (08:48→20:39)
[2021-01-17] MEDS: OMEPRAZOLE 20 MG CAP PO SCH (08:48)
[2021-01-17] MEDS: THIAMINE 100 MG TAB PO SCH (08:48)
[2021-01-17] MEDS: clonazePAM 0.5 MG TAB PO SCH ×3 (08:48→20:38)
[2021-01-17] MEDS: SERTRALINE 100 MG TAB PO SCH (08:48)
[2021-01-17] MEDS: ASPIRIN 81MG ENTERIC TABLET PO SCH (08:49)
[2021-01-17] MEDS: DIGOXIN 0.125 MG TAB PO SCH (08:52)
[2021-01-17] MEDS: CYANOCOBALAMIN 500 MCG TAB PO SCH (08:52)
[2021-01-17] MEDS: BISOPROLOL FUM 2.5 MG PER 1/2TAB PO SCH (08:59)
[2021-01-17] MEDS: POLYVINYL ALCOHOL OPHTH SOLN 15 ML(LIQUITEARS) OU SCH ×3 (09:00→20:37)
[2021-01-17] MEDS: REMEDY PHYTOPLEX Z-GUARD PASTE 113GM TUBE (FROM STOREROOM PRODUCT) TOP SCH ×3 (09:00→20:39)
[2021-01-17 14:00] VITALS: BP 111/73
--- NOTE | 2021-01-17 15:43 | IPNPDOC ---
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 REVIEW OF SYSTEMS: The following is a completed review of systems and has been reviewed. Review of systems otherwise unremarkable. PAIN: Patient self reports no pain EYES: No recent vision changes EARS, NOSE, & THROAT: No throat pain, or dysphagia, or rhinorrhea CARDIOVASCULAR: Denies chest pain or palpitations PULMONARY: Denies shortness of breath GASTROINTESTINAL: +loose stool (improving) GENITOURINARY: denies dysuria MUSCULOSKELETAL: generalized weakness NEUROLOGICAL:+tremor HEMATOLOGICAL: denies easy bruising SKIN: denies rash PSYCHIATRIC: Unremarkable All other review of systems found to be negative. PHYSICAL EXAMINATION: VITAL SIGNS: Please see below. GENERAL: Pleasant and cooperative. No acute distress. HEENT: PERRL. Extraocular movements intact. Clear conjunctiva CARDIOVASCULAR: Regular rate and rhythm. No murmurs, rubs, or gallops LUNGS: Clear to auscultation bilaterally. No wheezes. No rhonchi ABDOMEN: Soft, mildly ttp RUQ, no rebound tenderness, nondistended. Normal active bowel sounds NEUROLOGICAL: Alert and oriented times three. Cranial nerves II through XII grossly intact. Sensation grossly intact +LUE tremor EXTREMITIES: 4+\5 strength bilateral upper extremities. 4+\5 strength right lower extremity. 4+/5 strength in left lower extremity. ASSESSMENT:75-year-old F with past medical history of parkinsons, cva who presents status post worsening weakness in setting of NALLELY and transaminitis PLAN: 1. Rehab- PT/OT advance mobility and ADLs- ambulating further with RW -RN CARDIAC CATH- for cog and swallow eval 2. Neuro- hx of parkinsons with worsening weakness, c/u sinemet -hx of CVA c/u asa and statin for secondary prevention -fibromyalgia- c/u gabapentin -hx of myasthenia gravis 3. cardiac- hx of CAD and paroxysmal Afb s/p stenting and PM/AICD- c/u ASA and beta-yadiel- medicine consulted to assist in overall management -diastolic CHF- fluid retrict, diuretic, daily weights, monitor kidney function -paroxysmal Afib on digoxin and beta-yadiel, not on AC 4. Resp- chronic hypoxic respiratory failure- Duone and 02 5. GI- transaminitis likely due to chronic tylenol use- resolving, c/u to monitor -f/u GI, c/u thamine, folic acid, b12 supplement recommended by GI -prilosc for ppx -immodium prn for loose stools 6. Renal- CKD in setting of polycystic kidney disease, monitor for NALLELY 7. Psych- depression c/u zoloft -anxiety- c/u klonipin 8. Pain- judicious tylenol use 9. DVT ppx- heparin 10. Ortho- f/u with ortho for knee OA-patient not complaining of pain in knee presently 11. Dispo- 01-18-21 to home Allergies Coded Allergies: bee venom protein (honey bee) (Verified Allergy, Severe, ANAPHYLAXIS, 11/17/20) strawberry (Verified Allergy, Severe, ANAPHYLAXIS, 11/17/20) caffeine (Verified Adverse Reaction, Intermediate, heart palpitations, 11/17/20) Vital Signs Vital Signs Date Time Temp Pulse Resp B/P (MAP) Pulse Ox O2 Delivery O2 Flow Rate FiO2 01/17/21 14:00 98.1 70 18 111/73 (86) 95 Nasal Cannula 2.0 01/15/21 19:51 24 Laboratory Data CBC/BMP Laboratory Tests 01/17/21 06:13 Labs 24H Laboratory Tests 2 01/17/21 06:13: Immature Granulocyte % (Auto) 1.1, Neutrophils (%) (Auto) 47.9, Lymphocytes (%) (Auto) 34.1, Monocytes (%) (Auto) 9.0H, Eosinophils (%) (Auto) 7.6H, Basophils (%) (Auto) 0.3, Neutrophils # (Auto) 3.1, Lymphocytes # (Auto) 2.2, Monocytes # (Auto) 0.6, Eosinophils # (Auto) 0.5, Basophils # (Auto) 0.0, Nucleated Red Blood Cells % (auto) 0.0, Anion Gap 1L, Glomerular Filtration Rate 35.9L, Calcium Level 8.1L Current Medications Current Medications Current Medications Medications (Trade) Dose Ordered Sig/Jorden Route PRN Reason Start Time Stop Time Status Last Admin Dose Admin Acetaminophen (Tylenol Tab) 650 mg Q4HP PRN PO fever/MILD PAIN (PS 1-4) 01/11/21 15:45 01/17/21 14:06 Albuterol/ Ipratropium (Duoneb (Ipr 0.5mg/Alb 2.5mg)) 3 ml RTID NEB 01/11/21 20:00 01/17/21 13:10 Artificial Tears (Akwa Tears) 2 drop TID OU 01/11/21 21:00 01/16/21 20:19 Aspirin (Ecotrin) 81 mg DAILY PO 01/12/21 09:00 01/17/21 08:49 Bisoprolol Fumarate (Zebeta) 2.5 mg DAILY PO 01/12/21 09:00 01/17/21 08:59 Carbidopa/Levodopa (Sinemet 25/100) 1 tab 0900,1200,1500,1800 PO 01/11/21 18:00 01/12/21 15:59 DC 01/12/21 14:54 Carbidopa/Levodopa (Sinemet 25/100) 1 tab 0900,1200,1500,2100 PO 01/12/21 21:00 01/13/21 13:53 DC 01/13/21 09:29 Carbidopa/Levodopa (Sinemet 25/100) 1 tab BID@1500,2100 PO 01/13/21 15:00 01/16/21 20:18 Carbidopa/Levodopa (Sinemet 25/100) 1.5 tab BID@0900,1200 PO 01/14/21 09:00 01/17/21 12:43 Clonazepam (KlonoPIN) 0.5 mg BID PRN PO ANXIETY 01/11/21 15:45 01/12/21 15:06 DC 01/12/21 09:04 Clonazepam (KlonoPIN) 0.5 mg TID PO 01/12/21 16:00 01/17/21 08:48 Cyanocobalamin (Vitamin B12) 500 mcg DAILY PO 01/12/21 09:00 01/17/21 08:52 Digoxin (Lanoxin) 0.125 mg MoWeFr@0900 PO 01/12/21 09:00 01/17/21 08:52 Docusate Sodium (Colace) 100 mg BID PO 01/11/21 21:00 01/13/21 13:53 DC 01/12/21 20:25 Docusate Sodium (Colace) 100 mg BID PRN PO constipation 01/13/21 21:00 Folic Acid (Folic Acid) 1 mg QHS PO 01/11/21 21:00 01/16/21 20:18 Gabapentin (Neurontin) 200 mg QHS PO 01/11/21 21:00 01/16/21 20:17 Heparin Sodium (Porcine) (Heparin) 5,000 units Q12H SC 01/11/21 21:00 01/17/21 08:47 Home Med (Med Rec Complete!) ASDIRECTED XX 01/11/21 18:35 01/11/21 18:35 DC Loperamide HCl (Imodium) 2 mg ASDIRECTED PRN PO DIARRHEA 01/13/21 13:50 01/14/21 15:36 Nitroglycerin (Nitrostat (1/ 150)) 0.4 mg Q5MP PRN SL CHEST PAIN 01/11/21 15:45 Omeprazole (PriLOSEC) 40 mg DAILY PO 01/12/21 09:00 01/17/21 08:48 Senna (Senokot) 1 tab QHS PO 01/11/21 21:00 01/13/21 13:53 DC 01/12/21 20:25 Senna (Senokot) 1 tab QHS PRN PO constipation 01/13/21 21:00 Sertraline HCl (Zoloft) 100 mg DAILY PO 01/12/21 09:00 01/17/21 08:48 Thiamine HCl (Thiamine HCl) 50 mg DAILY PO 01/12/21 09:00 01/17/21 08:48 SHANIKA KUMARI MD Jan 17, 2021 15:43
[2021-01-17 20:00] VITALS: BP 154/74
[2021-01-17] MEDS: FOLIC ACID 1 MG TAB PO SCH (20:38)
[2021-01-17] MEDS: GABAPENTIN 100 MG CAP PO SCH (20:38)
[2021-01-18 06:00] VITALS: BP 153/67
[2021-01-18] MEDS: IPRATROPIUM 0.5MG/ALBUTEROL 2.5MG INH SOL UD 3ML (DUONEB) NEB SCH ×2 (07:12→12:47)
[2021-01-18] MEDS ORDERED: BISO5TAB14 PO (08:54)
[2021-01-18] MEDS ORDERED: FOLI1TAB11 PO (08:54)
[2021-01-18] MEDS ORDERED: ASPI-551 PO (08:54)
[2021-01-18] MEDS ORDERED: ZOLO100T PO (08:54)
[2021-01-18] MEDS ORDERED: DIGO0.123 PO (08:54)
[2021-01-18] MEDS ORDERED: THIA100TA PO (08:54)
[2021-01-18] MEDS ORDERED: VENTAER INH (08:54)
[2021-01-18] MEDS ORDERED: VITA500T40 PO (08:54)
[2021-01-18] MEDS ORDERED: CARB25TA9 PO ×2 (08:54)
[2021-01-18] MEDS ORDERED: GABA-1171 PO (08:54)
[2021-01-18] MEDS ORDERED: OMEP-221 PO (08:54)
[2021-01-18 10:07] VITALS: BP 153/67
[2021-01-18] MEDS: clonazePAM 0.5 MG TAB PO SCH (10:07)
[2021-01-18] MEDS: SERTRALINE 100 MG TAB PO SCH (10:07)
[2021-01-18] MEDS: OMEPRAZOLE 20 MG CAP PO SCH (10:07)
[2021-01-18] MEDS: BISOPROLOL FUM 2.5 MG PER 1/2TAB PO SCH (10:07)
[2021-01-18] MEDS: ASPIRIN 81MG ENTERIC TABLET PO SCH (10:08)
[2021-01-18] MEDS: CYANOCOBALAMIN 500 MCG TAB PO SCH (10:08)
[2021-01-18] MEDS: SINEMET 25-100 MG TAB PO SCH ×2 (10:08→12:08)
[2021-01-18] MEDS: THIAMINE 100 MG TAB PO SCH (10:08)
[2021-01-18] MEDS: LOPERAMIDE 2 MG CAPLET PO PRN (10:15)
[2021-01-18] MEDS: REMEDY PHYTOPLEX Z-GUARD PASTE 113GM TUBE (FROM STOREROOM PRODUCT) TOP SCH (10:20)
[2021-01-18] MEDS: HEPARIN SOD (PORCINE) 5000UNITS/ML 1ML VIAL/SYRINGE SC SCH (10:20)
[2021-01-18] MEDS: POLYVINYL ALCOHOL OPHTH SOLN 15 ML(LIQUITEARS) OU SCH (10:20)
[2021-01-18] MEDS: ACETAMINOPHEN TAB 650MG DOSE (2X325MG) PO PRN (12:09)
[2021-01-18 14:00] VITALS: BP 137/75
--- NOTE | 2021-02-08 11:23 | PMRDS ---
NAME: JANEEN JEFFERSON [facility] WT ID#: [id number] JOB: [id number] IAN: 01/18/2021 ACCT: [id number] DOCTOR: SHANIKA KUMARI MD PMR DISCHARGE SUMMARY DATE OF ADMISSION: 01/11/2021 DATE OF DISCHARGE: 01/18/2021 CHIEF COMPLAINT/DISCHARGE DIAGNOSIS: Parkinson's with worsening weakness in the setting of NALLELY and transaminitis. HISTORY OF PRESENT ILLNESS: A 75-year-old female with a past medical history of CAD status post MT x3 with 12 stents, atrial fibrillation with pacemaker, AICD, chronic diastolic CHF, stroke in 2012, CKD with polycystic kidney disease, brain aneurysm, myasthenia gravis, Parkinson's, spinal stenosis, tremors, fibromyalgia, chronic hypoxic respiratory failure on home O2, arthritis in multiple joints for which she takes many daily doses of Tylenol who received the first COVID vaccine after which she developed full body tremors, shakes for several days with worsening weakness and right upper quadrant pain and presented to [facility] ED on 01/10/2021. She was found to have NALLELY and elevated liver enzymes. CT abdomen and pelvis showed "polycystic renal changes left greater than right without obvious acute perinephric stranding or hydroureteronephrosis. Calcifications along the path of the left ureter are likely phleboliths within the left gonadal vein and less likely ureteral calculino obvious acute abdominopelvic pathology otherwise appreciated. Specifically no ascites, focal inflammatory stranding, adenopathy, or free air." Her AST and ALT started to trend down, and her diuretic was held for NALLELY. She was weak and found to have impairments in mobility and ADLs and deemed medically appropriate for discharge to ARU on 01/11/2021. PAST MEDICAL HISTORY: As per HPI. HOSPITAL COURSE: Patient was admitted and enrolled in a comprehensive PT/OT program. She received 24 hour nursing supervision, and weekly team meetings were held to discuss her progress. Patient was maintained on Sinemet for her Parkinson's and gabapentin for her fibromyalgia. She was maintained on aspirin and a beta-yadiel for a history of CAD and was on a fluid restriction with daily weights for her diastolic CHF. Her transaminitis continued to trend down. She was continued on supplements on thiamine, folic acid, and B12. She was started on Imodium for her loose stools which did eventually resolve. She made steady gains in therapy and was deemed medically and functionally stable to return home. DISCHARGE MEDICATIONS: As per instructions. FUNCTIONAL HISTORY: On discharge, patient was modified independent, able to ambulate 150 feet with a rolling walker, and modified independent for ADLs. Thank you for this referral.
== END 2021-01-18 14:40 | disposition home health service (06) | DRG 57 ==
LOC: M PM&R 18:31
PROVIDERS: ADMIT Physical Medicine & Rehabilitation; ATTEND Physical Medicine & Rehabilitation
DX: G20 Parkinson's disease (principal); I50.32 Chronic diastolic (congestive) heart failure; J96.11 Chronic respiratory failure with hypoxia; Q61.3 Polycystic kidney, unspecified; R53.1 Weakness; I25.10 Atherosclerotic heart disease of native coronary artery without angina pectoris; I48.0 Paroxysmal atrial fibrillation; N18.30 Chronic kidney disease, stage 3 unspecified; G70.00 Myasthenia gravis without (acute) exacerbation; Z66 Do not resuscitate; M79.7 Fibromyalgia; F32.9 Major depressive disorder, single episode, unspecified; R21 Rash and other nonspecific skin eruption; M15.9 Polyosteoarthritis, unspecified; F41.9 Anxiety disorder, unspecified; R74.01 Elevation of levels of liver transaminase levels; I25.2 Old myocardial infarction; Z86.73 Personal history of transient ischemic attack (TIA), and cerebral infarction without residual deficits; Z99.81 Dependence on supplemental oxygen; Z74.09 Other reduced mobility; Z74.1 Need for assistance with personal care; Z95.5 Presence of coronary angioplasty implant and graft; Z95.810 Presence of automatic (implantable) cardiac defibrillator; Z90.49 Acquired absence of other specified parts of digestive tract; Z98.1 Arthrodesis status; Z79.82 Long term (current) use of aspirin; Z79.899 Other long term (current) drug therapy; Z91.030 Bee allergy status; Z91.018 Allergy to other foods

== ENCOUNTER → 2021-01-25 | Outpatient (REF) | payer MEDICARE, MEDICAID ==
[~2021-01-25] MED LIST changes: +ASPI-551 PO; +FOLI1TAB11 PO; +THIA100TA PO; +VITA500T40 PO
[2021-01-25 16:24] LABS: BASO % 0.4 % (0.0-1.0); EOS # 0.4 10^3/uL (0.0-0.5); EOS % 5.4 % (0.0-3.0); HEMOGLOBIN 9.3 g/dl (12.0-15.5); LYMPH # 1.6 10^3/uL (1.5-5.0); LYMPH % 20.7 % (24.0-44.0); MEAN CORPUSCULAR HEMOGLOBIN 29.2 pg (27.0-33.0); MEAN CORPUSCULAR VOLUME 97.2 fl (80.0-96.0); MONO # 0.7 10^3/uL (0.0-0.8); MONO % 9.2 % (2.0-8.0); NEUTROPHILS # 4.9 10^3/uL (1.5-8.5); NEUTROPHILS % 63.8 % (36.0-66.0); PLATELET COUNT, AUTOMATED 217 10^3/uL (150-450); RED BLOOD COUNT 3.19 10^6/uL (4.00-5.40); WHITE BLOOD COUNT 7.7 10^3/uL (4.0-10.0)
[2021-01-25 17:02] LABS: ALBUMIN 2.9 GM/DL (3.2-5.2); BILIRUBIN,TOTAL 0.3 MG/DL (0.2-1.0); CALCIUM LEVEL 8.5 MG/DL (8.8-10.2); CREATININE FOR GFR 1.62 MG/DL (0.55-1.30); GLOMERULAR FILTRATION RATE 33.1 (>39); POTASSIUM SERUM 4.8 MEQ/L (3.5-5.1); TOTAL PROTEIN 6.1 GM/DL (6.4-8.2)
== END ==
LOC: M SHH 15:40
PROVIDERS: ATTEND Nurse Practitioner Family
DX: N17.9 Acute kidney failure, unspecified (principal)

== ENCOUNTER → 2021-01-28 | Outpatient (REF) | payer MEDICARE, MEDICAID | LOC: M SFHCCLAY 13:59 | PROVIDERS: ATTEND Physician Assistant | DX: R30.0 Dysuria (principal) ==

== ENCOUNTER → 2021-01-28 | Outpatient (CLI) | payer MEDICARE, MEDICAID ==
--- NOTE | 2021-01-28 17:17 | REP ---
INDICATION: INJURY OF RT KNEE COMPARISON: None. TECHNIQUE: 08/05/2020. FINDINGS: There is no evidence of acute fracture, dislocation, or intrinsic bone disease.There is not significant arthritic change. Vascular calcifications are seen posteriorly. There is no radiographic evidence of a joint effusion. IMPRESSION: No fracture or dislocation. No significant arthritic change. <Electronically signed by Danial Garcia > 01/28/21 1529
== END ==
LOC: M CLY 14:34
PROVIDERS: ATTEND Physician Assistant
DX: S89.91XA Unspecified injury of right lower leg, initial encounter (principal); W19.XXXA Unspecified fall, initial encounter; Y92.9 Unspecified place or not applicable; Y99.9 Unspecified external cause status
CPT/HCPCS: 73564; G0463

== ENCOUNTER → 2021-01-31 | Outpatient (REF) | payer MEDICARE, MEDICAID ==
[2021-02-01 13:01] LABS: APPEARANCE, URINE CLOUDY (CLEAR); BACTERIA, URINE AUTO 3+ (NEGATIVE); BILIRUBIN, URINE AUTO NEGATIVE (NEGATIVE); BLOOD, URINE BLOOD 1+ (NEGATIVE); CALCIUM OXALATE CRYSTALS MODERATE; COLOR, URINE YELLOW (YELLOW); GLUCOSE, URINE (UA) AUTO NEGATIVE (NEGATIVE); KETONE, URINE AUTO NEGATIVE (NEGATIVE); LEUKOCYTE ESTERASE, URINE AUTO 3+ (NEGATIVE); NITRITE, URINE AUTO NEGATIVE (NEGATIVE); PROTEIN, URINE AUTO 2+ mg/dL (NEGATIVE); RBC, URINE AUTO 11 /HPF (0-3); SPECIFIC GRAVITY URINE AUTO 1.018 (1.002-1.035); SQUAMOUS EPITHELIAL CELL UR AU 0 /HPF (0-6); UROBILINOGEN, URINE AUTO 0.2 mg/dL (0.0-2.0); WBC, URINE AUTO TNTC /HPF (0-3)
== END ==
LOC: M SFHCCLAY 11:12
PROVIDERS: ATTEND Nurse Practitioner Family
DX: R30.0 Dysuria (principal)